=== PATIENT | male | born 1965 | race African-American/Black ===

== ENCOUNTER 2017-07-13 04:11 | Inpatient (IN) | payer MEDICARE, MEDICAID ==
[~2017-07-13] VITALS: Ht 188 cm; Wt 88.5 kg
[~2017-07-13 04:11] MED LIST: AMBIEN5 MG ORAL; ASPIRIN EC81 MG ORAL; ATENOLOL50 MG ORAL; ATIVAN1 MG ORAL; BENADRYL A12.5 MG/5 ORAL; BENADRYL50 MG/ML IV; BISACODYL5 MG RECTAL; CLONIDINE HCL0.1 MG PO; GUAIFENESIN-CO118 M1 ORAL; ISENTRESS400 MG ORAL; KEFLEX500 MG ORAL; LISINOPRIL20 MG PO; MELOXICAM7.5 MG ORAL; MIRALAX17 G2 ORAL; NEPHROVITE1 TAB ORAL; NIFEDICAL XL30 MG ORAL; NITROSTAT0.4 M2 SL; NORVIR100 M2 ORAL; OMEPRAZOLE40 M1 ORAL; ONDANSETRON HCL4 M1 ORAL; OXYCODONE HCL15 M1 ORAL; OXYCODONE HCL30 MG; OXYCONTIN20 MG ORAL; PANTOPRAZOLE SO40 MG ORAL; PREZISTA800 MG ORAL; RENAGEL400 MG ORAL; RENVELA800 MG ORAL; SENSIPAR60 MG ORAL; SIMVASTATIN20 MG ORAL; TYLENOL650 MG/20. ORAL; WARFARIN SODIUM5 MG ORAL; ZOVIRAX800 MG ORAL
[2017-07-13 06:08] VITALS: BP 102/55
[2017-07-13] MEDS ORDERED: ZOVIRAX800 MG ORAL (06:44)
[2017-07-13] MEDS ORDERED: PRAVASTATIN SOD20 M1 ORAL (06:44)
[2017-07-13] MEDS ORDERED: RENAGEL800 MG ORAL (06:44)
[2017-07-13] MEDS ORDERED: GABAPENTIN300 MG ORAL (06:44)
[2017-07-13 08:00] VITALS: BP 91/45
[2017-07-13] MEDS ORDERED: oxyCODONE 15mg IR tab ORAL PRN (08:30)
[2017-07-13] MEDS: HYDROmorphone 1mg/ml Carpuject IVP PRN ×3 (09:09→21:11)
[2017-07-13 09:22] LABS: MEAN CORPUSCULAR HEMOGLOBIN 28.7 PG (27.0-31.0); MEAN CORPUSCULAR HGB CONC 31.9 G/DL (32.0-36.0); MEAN CORPUSCULAR VOLUME 90 FL (80-99); MEAN PLATELET VOLUME 6.8 FL (6.5-10.1); PLATELET COUNT 96 K/UL (150-450); WHITE BLOOD COUNT 4.2 K/UL (4.8-10.8)
[2017-07-13 09:25] LABS: INR 1.1 (0.9-1.1); PROTHROMBIN TIME 11.3 SEC (9.30-11.50)
[2017-07-13 09:32] LABS: ALBUMIN/GLOBULIN RATIO 1.1 (1.0-2.7); CALCIUM 8.4 mg/dL (8.6-10.2); GLOMERULAR FILTRATION RATE 9.9 mL/min (>60); MAGNESIUM 1.9 mg/dL (1.7-2.5); PHOSPHORUS 5.3 mg/dL (2.5-4.8); POTASSIUM 4.1 mEQ/L (3.4-4.9); TOTAL PROTEIN 7.5 g/dL (6.6-8.7)
[2017-07-13 10:15] LABS: BAND NEUTROPHILS % (MANUAL) 0 % (0-8); BASOPHILS % (MANUAL) 0 % (0-2); EOSINOPHILS % (MANUAL) 1 % (0-3); LYMPHOCYTES % (MANUAL) 29 % (20-45); MACROCYTES 1+; NEUTROPHILS % (MANUAL) 56 % (45-75); PLATELET ESTIMATE DECREASED; PLATELET MORPHOLOGY NORMAL; TOTAL CELLS COUNTED 100
[2017-07-13 10:16] LABS: HYPOCHROMASIA 1+; OVALOCYTES 1+; SCHISTOCYTES 1+; TEAR DROP CELLS 1+
[2017-07-13] MEDS: Aspirin EC 81mg tab ORAL SCH (11:01)
[2017-07-13] MEDS: Sensipar 30mg Tab ORAL SCH (11:01)
--- NOTE | 2017-07-13 11:20 | Consultation ---
Consult Note Consult Note 52 Y old- The patient states he went to dialysis on 07/12/2017. The patient began to experience watery diarrhea after dialysis. The patient then went to bed. The patient fell trying to get out of bed to go to the bathroom. The patient struck his low back. The patient was initially evaluated at [facility]. The patient was transferred to [facility] for insurance purposes. The patient is admitted for low back pain to rule out lumbar fracture. Past Medical History: AFib, HIV, ESRD on HD, chronic pain syndrome, GERD, hypertension, pulmonary & portal hypertension, chronic pancreatitis Past Surgical History: : Cholecystectomy, back sx, rt shoulder sx, esophageal sx, Left thigh AVF, pulmonic decortication with left VATS draingae of the empyema, hx of repair of the pseudoaneurysm of HD fistula of the left arm, brachiocephalic vein AV graft repair, hx of basal venous transposition of the right arm Pertinent Family History: History of the kidney disease in his mother and with the kidney failure in a maternal aunt and maternal grandmother. Social History: Pt denies smoking, alcohol, or illicit drug use. Occasionally smoke marijuana. Allergies: Coded Allergies: LEVOFLOXACIN (Unverified Allergy, Unknown, 08/22/14) Uncoded Allergies: nasal spray (Allergy, Unknown, 07/03/15) Patient interviewed and examined data reviewed . Assessment/Plan status: -. Human immunodeficiency virus. -. End-stage renal disease. on HD . -. Hypertension. -. Asthma. -. Atrial fibrillation. -. Gastroesophageal reflux disease. Assessment/Plan 1. Low back pain. 2. Diarrhea. 3. Dehydration. 4. Human-immunodeficiency virus. 5. End-stage renal disease. 6. Hypertension. 7. Asthma. 8. Atrial fibrillation. 9. Gastroesophageal reflux disease. 10. Coronary artery disease. 11. History of pericardial effusion. 12. Peripheral vascular disease. Plan: Arrange for HD Per PMD RALEIGH VAZ Jul 13, 2017 11:20
[2017-07-13 12:00] VITALS: BP 98/61
[2017-07-13] MEDS: Ritonavir 100mg tab ORAL SCH (12:51)
[2017-07-13] MEDS: Acyclovir 200mg Cap ORAL SCH (12:52)
[2017-07-13] MEDS: Heparin 5000 units/ml inj SUBQ SCH ×2 (14:00→21:11)
[2017-07-13 16:00] VITALS: BP 126/73
[2017-07-13] MEDS: DiphenhydrAMINE 50mg/ml Inj IVP PRN (17:54)
--- NOTE | 2017-07-13 19:03 | Consultation ---
History of Present Illness General Date patient seen: Jul 13, 2017 Chief Complaint: abdomina;l pain Reason for Consultation: inpatient management Present Illness HPI 52-year-old male with PMHx of HIV, ESRF, HD, Asthma presented to ED of [facility] for evaluation of abdominal pain and fluid overload.. 10 out of 10. Nonradiating. He has chronic history of abdominal pain. Has fistula in right groin. Denies chest pain shortness of breath. He looks chronically ill and cachectic and admitted for further work up. Allergies: Coded Allergies: FLUTICASONE (Unverified Allergy, Unknown, 02/23/17) LEVOFLOXACIN (Unverified Allergy, Unknown, 08/22/14) MORPHINE (Unverified Allergy, Unknown, 02/23/17) Uncoded Allergies: nasal spray (Allergy, Unknown, 07/03/15) Medication History Scheduled Acyclovir* (Zovirax*), 400 MG ORAL DAILY, (Reported) Aspirin Ec* (Aspirin Ec*), 81 MG ORAL DAILY, (Reported) Atenolol* (Tenormin*), 50 MG ORAL DAILY, (Reported) Cinacalcet Hcl (Sensipar), 60 MG ORAL DAILY, (Reported) Darunavir Ethanolate (Prezista), 800 MG ORAL DAILY, (Reported) Gabapentin* (Gabapentin*), 300 MG ORAL BID, (Reported) Meloxicam* (Meloxicam*), 1 TAB ORAL HS, (Reported) Pravastatin Sod* (Pravastatin Sod*), 40 MG ORAL DAILY, (Reported) Raltegravir (Isentress), 1 TAB ORAL DAILY, (Reported) Ritonavir (Norvir), 1 TAB ORAL DAILY, (Reported) Sevelamer Carbonate (Renvela), 5 TAB ORAL THREE TIMES A DAY, (Reported) Sevelamer Hcl (Renagel), 800 MG ORAL THREE TIMES A DAY, (Reported) Simvastatin (Zocor), 20 MG ORAL BEDTIME, (Reported) Warfarin Sod* (Warfarin Sod*), 9 MG ORAL DAILY, (Reported) Scheduled PRN Acetaminophen (Acetaminophen), 650 MG ORAL Q4HR PRN for Prn Headache/Temp > 101, (Reported) Diphenhydramine HCl (Diphenhydramine HCl), 25 MG IV 3XW PRN for before each dialysis, (Reported) Ondansetron Hcl (Ondansetron Hcl), 1 TAB ORAL PRN PRN for Nausea & Vomiting, ( Reported) Oxycodone Hcl* (Oxycodone Hcl*), 30 MG ORAL Q6H PRN for For Pain, (Reported) Patient History Healthcare decision maker Resuscitation status Advanced Directive on File Past Medical/Surgical History Past Medical/Surgical History: (1) Hepatitis B (2) HIV (human immunodeficiency virus infection) (3) ESRD on hemodialysis (4) Abdominal pain (5) Asthma (6) Anemia in chronic kidney disease (7) Pancreatitis, chronic Review of Systems All Other Systems: negative except mentioned in HPI Physical Exam General Appearance: WD/WN Lines, tubes and drains: peripheral, central line HEENT: normocephalic Neck: non-tender, normal alignment Respiratory/Chest: chest wall non-tender, lungs clear Breasts: no masses Cardiovascular/Chest: normal peripheral pulses Abdomen: normal bowel sounds, non tender Last 24 Hour Vital Signs Date Time Temp Pulse Resp B/P (MAP) Pulse Ox O2 Delivery O2 Flow Rate FiO2 07/13/17 16:00 96.8 64 18 126/73 98 Room Air 07/13/17 12:00 96.8 61 19 98/61 90 Room Air 07/13/17 10:00 54 91/45 07/13/17 08:00 96.8 54 18 91/45 96 Room Air 07/13/17 06:08 97.7 77 18 102/55 100 Room Air Laboratory Tests Test 07/13/17 08:50 White Blood Count 4.2 K/UL (4.8-10.8) L Red Blood Count 3.70 M/UL (4.70-6.10) L Hemoglobin 10.6 G/DL (14.2-18.0) L Hematocrit 33.3 % (42.0-52.0) L Mean Corpuscular Volume 90 FL (80-99) Mean Corpuscular Hemoglobin 28.7 PG (27.0-31.0) Mean Corpuscular Hemoglobin Concent 31.9 G/DL (32.0-36.0) L Red Cell Distribution Width 18.0 % (11.6-14.8) H Platelet Count 96 K/UL (150-450) L Mean Platelet Volume 6.8 FL (6.5-10.1) Neutrophils (%) (Auto) % (45.0-75.0) Lymphocytes (%) (Auto) % (20.0-45.0) Monocytes (%) (Auto) % (1.0-10.0) Eosinophils (%) (Auto) % (0.0-3.0) Basophils (%) (Auto) % (0.0-2.0) Differential Total Cells Counted 100 Neutrophils % (Manual) 56 % (45-75) Lymphocytes % (Manual) 29 % (20-45) Monocytes % (Manual) 14 % (1-10) H Eosinophils % (Manual) 1 % (0-3) Basophils % (Manual) 0 % (0-2) Band Neutrophils 0 % (0-8) Platelet Estimate Decreased L Platelet Morphology Normal Hypochromasia 1+ Macrocytosis 1+ Tear Drop Cells 1+ Ovalocytes 1+ Schistocytes 1+ Prothrombin Time 11.3 SEC (9.30-11.50) Prothromb Time International Ratio 1.1 (0.9-1.1) Sodium Level 137 mEQ/L (135-145) Potassium Level 4.1 mEQ/L (3.4-4.9) Chloride Level 95 mEQ/L (98-107) L Carbon Dioxide Level 26 mEQ/L (20-30) Anion Gap 16 (5-15) H Blood Urea Nitrogen 43 mg/dL (7-23) H Creatinine 7.0 mg/dL (0.7-1.2) H Estimat Glomerular Filtration Rate 9.9 mL/min (>60) Glucose Level 95 mg/dL (74-106) Calcium Level 8.4 mg/dL (8.6-10.2) L Phosphorus Level 5.3 mg/dL (2.5-4.8) H Magnesium Level 1.9 mg/dL (1.7-2.5) Total Bilirubin 0.6 mg/dL (0.0-1.2) Aspartate Amino Transf (AST/SGOT) 25 U/L (5-40) Alanine Aminotransferase (ALT/SGPT) 21 U/L (3-41) Alkaline Phosphatase 133 U/L (40-129) H Total Protein 7.5 g/dL (6.6-8.7) Albumin 4.0 g/dL (3.5-5.2) Globulin 3.5 g/dL Albumin/Globulin Ratio 1.1 (1.0-2.7) Height (Feet): 6 Height (Inches): 3.00 Weight (Pounds): 174 Medications Current Medications Medications (Trade) Dose Ordered Sig/Anum Route PRN Reason Start Time Stop Time Status Last Admin Dose Admin Acetaminophen (Tylenol) 650 mg Q4H PRN ORAL Mild Pain/Temp > 100.5 07/13/17 10:00 08/12/17 09:59 Acyclovir (Zovirax) 400 mg DAILY ORAL 07/13/17 12:00 08/12/17 11:59 07/13/17 12:52 Aspirin (Ecotrin) 81 mg DAILY ORAL 07/13/17 10:00 08/12/17 09:59 07/13/17 11:01 Atenolol (Tenormin) 50 mg DAILY ORAL 07/13/17 10:00 08/12/17 09:59 Cinacalcet (Sensipar) 60 mg DAILY ORAL 07/13/17 10:00 08/12/17 09:59 07/13/17 11:01 Darunavir (Prezista) 800 mg QHS ORAL 07/13/17 21:00 08/12/17 20:59 Diphenhydramine HCl (Benadryl) 25 mg DAILYPRN PRN IVP GIVE PRIOR 30MIN PRIOR TO HD 07/13/17 09:00 08/12/17 08:59 Diphenhydramine HCl (Benadryl) 25 mg Q6H PRN IVP Itching 07/13/17 16:30 08/12/17 16:29 07/13/17 17:54 Gabapentin (Neurontin) 300 mg DAILY ORAL 07/13/17 10:00 08/12/17 09:59 07/13/17 11:01 Heparin Sodium (Porcine) (Heparin 5000 units/ml) 5,000 units EVERY 8 HOURS SUBQ 07/13/17 14:00 08/12/17 13:59 Hydromorphone HCl (Dilaudid) 1 mg Q4H PRN IVP Severe Pain (Pain Scale 7-10) 07/13/17 08:30 07/20/17 08:29 07/13/17 14:42 Ondansetron HCl (Zofran) 4 mg Q4H PRN IVP Nausea & Vomiting 07/13/17 09:30 08/12/17 09:29 07/13/17 17:53 Oxycodone HCl (Roxicodone) 30 mg Q6H PRN ORAL Moderate Pain (Pain Scale 4-6) 07/13/17 08:30 07/20/17 08:29 Pravastatin Sodium (Pravachol) 40 mg QHS ORAL 07/13/17 21:00 08/12/17 20:59 Raltegravir (Isentress) 400 mg Q12HR ORAL 07/13/17 21:00 08/12/17 20:59 Ritonavir (Norvir) 100 mg DAILY ORAL 07/13/17 12:00 08/12/17 11:59 07/13/17 12:51 Sevelamer Carbonate (Renvela) 2,400 mg THREE TIMES A DAY ORAL 07/13/17 10:00 08/12/17 09:59 07/13/17 17:53 Assessment/Plan Problem List: (1) Shortness of breath ICD Codes: R06.02 - Shortness of breath SNOMED: 654370812 (2) ESRD on hemodialysis ICD Codes: N18.6 - ESRD on hemodialysis; Z99.2 - Dependence on renal dialysis SNOMED: 710704769 (3) Anemia in chronic kidney disease ICD Codes: N18.9 - Chronic kidney disease, unspecified; D63.1 - Anemia in chronic kidney disease SNOMED: 945860640 (4) Asthma ICD Codes: J45.909 - Asthma SNOMED: 601343865 (5) Abdominal pain ICD Codes: R10.9 - Abdominal pain SNOMED: 00037701 (6) Pancreatitis, chronic ICD Codes: K86.1 - Pancreatitis, chronic SNOMED: 921214248 (7) Coronary artery disease ICD Codes: I25.10 - Coronary artery disease SNOMED: 194898957 (8) HIV (human immunodeficiency virus infection) ICD Codes: Z21 - HIV (human immunodeficiency virus infection) SNOMED: 48279152 (9) Hepatitis B ICD Codes: B16.9 - Hepatitis B SNOMED: 32829195 Assessment/Plan respiratory treatment HD by nephrology ID and GI evaluation pain management ARCADIO PETTIT Jul 13, 2017 19:03
[2017-07-13 20:00] VITALS: BP 97/57
[2017-07-13] MEDS ORDERED: Isentress 400mg tab ORAL SCH (21:00)
--- NOTE | 2017-07-13 22:52 | Consultation ---
Consult Note Consult Note ID Dic # [id number] SCOT COFFEY M.D. Jul 13, 2017 22:52
[2017-07-13 23:59] VITALS: BP 104/72
[2017-07-14] VITALS (8 sets, daily range): BP systolic 84–127; BP diastolic 50–63
[2017-07-14] MEDS: DiphenhydrAMINE 50mg/ml Inj IVP PRN ×4 (00:26→22:46)
[2017-07-14] MEDS: HYDROmorphone 1mg/ml Carpuject IVP PRN ×4 (04:15→21:30)
--- NOTE | 2017-07-14 04:30 | History and Physical Report ---
DATE OF ADMISSION: 07/13/2017 Chief Complaint: The patient is a 52-year-old male, who presents with chief complaint of low back pain. History Of Present Illness: The patient was admitted to [facility] in January 2017. Please see history and physical and discharge summary dictated at that time. The patient states he went to dialysis on 07/12/2017. The patient began to experience watery diarrhea after dialysis. The patient then went to bed. The patient fell trying to get out of bed to go to the bathroom. The patient struck his low back. The patient was initially evaluated at [facility] Emergency Room. The patient was transferred to [facility] for insurance purposes. The patient is admitted for low back pain to rule out lumbar fracture. PAST MEDICAL HISTORY: Significant for: 1. HIV, which was diagnosed in 1995. The patient states that his last T-cell count was greater than 300 and his last viral load was undetectable. 2. End-stage renal disease, on hemodialysis every Tuesday, , and Tuesday at [facility]. 3. Hypertension. 4. History of atrial fibrillation. 5. Asthma. 6. History of gastroesophageal reflux disease. 7. History of pericardial effusion. 8. Coronary artery disease. 9. Peripheral vascular disease. PAST SURGICAL HISTORY: Significant for: 1. Cholecystectomy in 2005. 2. Right neck mass excision in 2010. 3. VATS procedure for empyema in 2010. 4. AV graft placement in the right leg. CURRENT MEDICATIONS: 1. Neurontin 300 mg one tablet p.o. twice daily. 2. Oxycodone 20 mg one tablet p.o. four times daily. 3. Pravachol 40 mg one tablet p.o. daily. 4. Sensipar 60 mg one tablet p.o. daily. 5. Aspirin 81 mg one tablet p.o. daily. 6. Acyclovir 400 mg one tablet p.o. daily. 7. Bactrim double-strength one tablet p.o. every Tuesday, Tuesday, and Tuesday. 8. Prezista 400 mg one tablet p.o. daily. 9. Norvir 100 mg one tablet p.o. daily. 10. Isentress 400 mg one tablet p.o. twice daily. 11. Renagel 800 mg one tablet p.o. three times daily. 12. Prilosec 40 mg one tablet p.o. daily. 13. Atenolol 50 mg one tablet p.o. daily. Allergies: Levaquin and Flonase. The medical records states the patient is allergic to morphine, however, he denies this. Social History: The patient is single and is disabled. The patient denies tobacco or alcohol use. Review Of Systems: Constitutional: The patient denies weight loss or weight gain. The patient denies fevers or chills. HEENT: The patient denies ear or throat pain. The patient denies headache. Cardiovascular: The patient denies palpitations or chest pain. Chest: The patient denies wheeze or shortness of breath. Abdomen: The patient denies nausea, vomiting, diarrhea, or constipation. Genitourinary: The patient denies dysuria or increased frequency of urination. Neuromuscular: The patient complains of low back pain as above. The patient denies seizures or generalized weakness. PHYSICAL EXAMINATION: Vital Signs: Temperature 97.7, respirations 18, pulse 77, and blood pressure 102/55. General: The patient is a well-developed and well-nourished male, in no apparent distress. HEENT: Eyes, pupils are equal and responsive to light and accommodation. Extraocular movements are intact. NECK: Supple without lymphadenopathy. Chest: Lungs are clear to auscultation bilaterally without wheeze or rales. Cardiovascular: Regular rhythm and rate. S1 and S2 are normal without murmurs, rubs, or gallops. Abdomen: Soft, nontender, and nondistended. Positive bowel sounds. No hepatosplenomegaly. Currently, no rebound or guarding noted. EXTREMITIES: Negative for clubbing, cyanosis, or edema. RECTAL: Refused. GENITAL: Refused. Neurologic: Cranial nerves II through XII are grossly intact without focal deficits. Motor strength is 5/5 bilaterally. Deep tendon reflexes are 2+, plantar. Laboratory Studies: WBC 4.7, hemoglobin 10.7, hematocrit 33.1, and platelets 192,000. Sodium 135, potassium 4.0, chloride 97, CO2 25, BUN 38, creatinine 6.51, and glucose 99. Troponin is 0.04. Diagnostic data: CT of the lumbar spine from [place] revealed no CT evidence of fracture or dislocation. ASSESSMENT: This is a 52-year-old male with: 1. Low back pain. 2. Diarrhea. 3. Dehydration. 4. Human-immunodeficiency virus. 5. End-stage renal disease. 6. Hypertension. 7. Asthma. 8. Atrial fibrillation. 9. Gastroesophageal reflux disease. 10. Coronary artery disease. 11. History of pericardial effusion. 12. Peripheral vascular disease. TREATMENT: 1. Low back pain. The patient is currently complaining of radiculopathy to the left leg. An MRI of the back is pending. Neurology consultation has been obtained by Dr. King. 2. Human-immunodeficiency virus. Continue HAART medications as above. An infectious disease consultation has been obtained with Dr. Sidhu. 3. End-stage renal disease. The patient is currently on hemodialysis every Tuesday, , and Tuesday with Dr. Thomas. We will follow recommendation of Dr. Thomas. 4. Hypertension. Continue atenolol as above. 5. History of atrial fibrillation. 6. History of asthma. 7. History of gastroesophageal reflux disease. 8. History of pericardial effusion. 9. History of coronary artery disease. 10. History of peripheral vascular disease. Fabricio Guillory M.D. DR: Justina JOB#: [id number] CC:
[2017-07-14] MEDS: Heparin 5000 units/ml inj SUBQ SCH ×3 (05:41→21:23)
[2017-07-14 07:47] LABS: ALANINE AMINOTRANSFERASE 18 U/L (3-41); ALBUMIN/GLOBULIN RATIO 1.1 (1.0-2.7); ASPARTATE AMINO TRANSFERASE 23 U/L (5-40); CARBON DIOXIDE 24 mEQ/L (20-30); CHLORIDE 93 mEQ/L (98-107); CHOLESTEROL 173 mg/dL (< 200); CREATININE 8.7 mg/dL (0.7-1.2); CRP QUANT 0.9 mg/dL (< 0.5); GLOMERULAR FILTRATION RATE 7.8 mL/min (>60); HEMOLYSIS 12; LDL CHOLESTEROL (CALC.) 46 mg/dL (60-99); PHOSPHORUS 7.5 mg/dL (2.5-4.8); SODIUM 134 mEQ/L (135-145); TOTAL PROTEIN 7.6 g/dL (6.6-8.7); URIC ACID 6.2 mg/dL (3.0-7.5)
[2017-07-14 07:55] LABS: BASOPHILS % (AUTO) 0.5 % (0.0-2.0); EOSINOPHILS % (AUTO) 6.6 % (0.0-3.0); LYMPHOCYTES % (AUTO) 24.7 % (20.0-45.0); MEAN CORPUSCULAR HEMOGLOBIN 27.8 PG (27.0-31.0); MEAN CORPUSCULAR HGB CONC 31.5 G/DL (32.0-36.0); MEAN CORPUSCULAR VOLUME 88 FL (80-99); MEAN PLATELET VOLUME 7.6 FL (6.5-10.1); MONOCYTES % (AUTO) 13.1 % (1.0-10.0); PLATELET COUNT 107 K/UL (150-450); RED BLOOD COUNT 3.77 M/UL (4.70-6.10); RED CELL DISTRIBUTION WIDTH 18.4 % (11.6-14.8); WHITE BLOOD COUNT 4.4 K/UL (4.8-10.8)
[2017-07-14 08:07] LABS: ANION GAP 17 (5-15)
[2017-07-14 08:09] LABS: POTASSIUM 7.2 mEQ/L (3.4-4.9)
[2017-07-14 08:31] LABS: HEMOGLOBIN A1C 4.7 % (< 6.0)
--- NOTE | 2017-07-14 08:31 | Consultation ---
DATE OF CONSULTATION: INFECTIOUS DISEASES CONSULTATION CONSULTING PHYSICIAN: Albin Sidhu M.D. REFERRING PHYSICIAN: Fabricio Guillory M.D. REASON FOR CONSULTATION: Evaluation of the patient for HIV. History Of Present Illness: The patient is a 52-year-old male with multiple medical problems, who was admitted to this medical center due to low back pain. The patient has been diagnosed with HIV and the patient is on his HIV regimen. According to him, his viral load is undetectable, has CD4 count of over 300. The patient has regular followup with his HIV provider. An Infectious Diseases consultation has been requested for further evaluation of the patient and antibiotic management. PAST MEDICAL HISTORY: 1. Significant for HIV. 2. End-stage renal disease, on hemodialysis. 3. Hypertension. 4. Atrial fibrillation. 5. Asthma. 6. GERD. 7. History of cholecystectomy. 8. History of VATS for empyema in 2010. 9. History of AV graft in the right leg. Medications: At home, the patient is on Prezista 800 mg daily, Isentress 400 mg every 12 hours, and Norvir 100 mg daily. ALLERGIES: Morphine, Levaquin, and fluticasone. FAMILY HISTORY: Noncontributory. Review Of Systems: A 10-point review was done and except what is mentioned above has been negative. PHYSICAL EXAMINATION: Vital Signs: Temperature 97 degrees, pulse 86, respirations 18, and blood pressure 97/57. HEENT: Mild pale conjunctivae. No icterus. NECK: No lymphadenopathy. CHEST: Clear. HEART: S1 and S2. ABDOMEN: Soft and nontender. EXTREMITIES: No cyanosis. NEUROLOGIC: Awake and alert. Laboratory Data: White blood cells 4, hemoglobin 10, and platelets 96,000. BUN 43 and creatinine 7. ALT and AST unremarkable. Alkaline phosphatase 133. Assessment: The patient is a 52-year-old male with multiple medical problems as listed above was admitted to this medical center due to low back pain. The patient has history of . The patient also has human immunodeficiency virus well controlled on his regimen with CD4 count of over 300, undetected viral load. PLAN: 1. We will continue the patient on the HIV regimen. 2. Monitor CBC. 3. Monitor BMP. 4. Referral to Nephrology recommendation for dialysis. 5. Management of low back pain as per primary care team. 6. Upon discharge, the patient will have followup with his HIV provider. Thank you, Dr. Guillory, for allowing me to participate in the care of this patient. I will follow the patient with you during this hospitalization. Albin Sidhu M.D. DR: CHARITY JOB#: [id number] CC:
--- NOTE | 2017-07-14 09:28 | General Progress Note ---
Assessment/Plan Status: stable Status Narrative on HD now Assessment/Plan status: -. Human immunodeficiency virus. -. End-stage renal disease. 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 Hypertension. -. Asthma. -. Atrial fibrillation. -. Gastroesophageal reflux disease. Plan; HD as needed while in house Subjective ROS Limited/Unobtainable: No Allergies: Coded Allergies: FLUTICASONE (Unverified Allergy, Unknown, 02/23/17) LEVOFLOXACIN (Unverified Allergy, Unknown, 08/22/14) MORPHINE (Unverified Allergy, Unknown, 02/23/17) Uncoded Allergies: nasal spray (Allergy, Unknown, 07/03/15) Objective Last 24 Hour Vital Signs Date Time Temp Pulse Resp B/P (MAP) Pulse Ox O2 Delivery O2 Flow Rate FiO2 07/14/17 08:02 97.2 60 20 101/51 98 07/14/17 05:56 127/58 07/14/17 05:30 Room Air 07/14/17 05:30 97.2 61 22 127/63 100 Room Air 07/14/17 04:45 97.0 07/14/17 04:14 97.7 67 20 84/51 93 Room Air 07/13/17 23:59 97.0 64 20 104/72 98 Room Air 07/13/17 20:00 97.0 62 18 97/57 98 Room Air 07/13/17 16:00 96.8 64 18 126/73 98 Room Air 07/13/17 12:00 96.8 61 19 98/61 90 Room Air 07/13/17 10:00 54 91/45 Laboratory Tests 07/14/17 05:30: White Blood Count 4.4L, Red Blood Count 3.77L, Hemoglobin 10.5L, Hematocrit 33.4L, Mean Corpuscular Volume 88, Mean Corpuscular Hemoglobin 27.8, Mean Corpuscular Hemoglobin Concent 31.5L, Red Cell Distribution Width 18.4H, Platelet Count 107L, Mean Platelet Volume 7.6, Neutrophils (%) (Auto) 55.0, Lymphocytes (%) (Auto) 24.7, Monocytes (%) (Auto) 13.1H, Eosinophils (%) (Auto) 6.6H, Basophils (%) (Auto) 0.5, Sodium Level 134L, Potassium Level 7.2#*H, Chloride Level 93L, Carbon Dioxide Level 24, Anion Gap 17H, Blood Urea Nitrogen 62H, Creatinine 8.7H, Estimat Glomerular Filtration Rate 7.8, Glucose Level 91, Hemoglobin A1c 4.7, Uric Acid 6.2, Calcium Level 8.0L, Phosphorus Level 7.5H, Magnesium Level 2.0, Total Bilirubin 0.5, Gamma Glutamyl Transpeptidase 52, Aspartate Amino Transf (AST/SGOT) 23, Alanine Aminotransferase (ALT/SGPT) 18, Alkaline Phosphatase 137H, C-Reactive Protein, Quantitative 0.9H, Pro-B-Type Natriuretic Peptide 57546O, Total Protein 7.6, Albumin 4.1, Globulin 3.5, Albumin/Globulin Ratio 1.1, Triglycerides Level 78, Cholesterol Level 173, LDL Cholesterol 46L, HDL Cholesterol > 111H, Cholesterol/HDL Ratio 1.0L, Thyroid Stimulating Hormone (TSH) 3.920 Height (Feet): 6 Height (Inches): 3.00 Weight (Pounds): 198 Cardiovascular: regular rhythm Respiratory/Chest: lungs clear Abdomen: soft RALEIGH VAZ Jul 14, 2017 09:27
[2017-07-14] MEDS: Acyclovir 200mg Cap ORAL SCH (09:58)
[2017-07-14] MEDS: Isentress 400mg tab ORAL SCH ×2 (09:58→21:29)
[2017-07-14] MEDS: Sensipar 30mg Tab ORAL SCH (09:59)
[2017-07-14] MEDS: Aspirin EC 81mg tab ORAL SCH (09:59)
[2017-07-14] MEDS: Ritonavir 100mg tab ORAL SCH (10:00)
[2017-07-14] MEDS: Docusate 100mg cap ORAL SCH ×3 (10:03→18:07)
--- NOTE | 2017-07-14 10:45 | GI Initial Consult Note ---
TenishaHarper Boschoi N.P. 07/14/17 1045: History of Present Illness General Date patient seen: Jul 14, 2017 Time patient seen: 10:33 Referring physician: PAYTON CARNEY Reason for Consultation: ANEMIA Present Illness HPI The patient was admitted to [facility] in January 2017. Please see history and physical and discharge summary dictated at that time. The patient states he went to dialysis on 07/12/2017. The patient began to experience watery diarrhea after dialysis. The patient then went to bed. The patient fell trying to get out of bed to go to the bathroom. The patient struck his low back. The patient was initially evaluated at [facility] Emergency Room. The patient was transferred to [facility] for insurance purposes. The patient is admitted for low back pain to rule out lumbar fracture. GI Consult. HPI as noted. GI consulted for abdominal pain accompanied with diarrhea. Pt seen on floor, awake A&Ox4 NAD c/o of watery diarrhea and abdominal pain. Denies any melena or hematochezia. Generalized abdominal pain tender to touch. Pt s/p colonoscopy in 2014, and s/p EGD in 2013, see full report below. He presents today with anemia and hypoalbuminemia. Endoscopy Procedure Note Indication for Procedure: abd pain Procedures Performed: colonoscopy Operative Findings/Diagnosis: hemorrhoids CONNOR WHITLEY - Nov 15, 2014 12:37 Endoscopy Procedure Note Indication for Procedure: abd pain Procedures Performed: EGD Operative Findings/Diagnosis: portal hypertensive gastropathy CONNOR WHITLEY - Aug 26, 2014 08:18 Home Meds Reported Medications Sevelamer Hcl (RENAGEL) 800 Mg Tablet, 800 MG ORAL THREE TIMES A DAY, #90 TAB 0 Refills 07/13/17 Acyclovir* (ZOVIRAX*) 800 Mg Tablet, 400 MG ORAL DAILY, #30 CAP 0 Refills 07/13/17 Pravastatin Sod* (PRAVASTATIN SOD*) 20 Mg Tablet, 40 MG ORAL DAILY, TAB 07/13/17 Gabapentin* (GABAPENTIN*) 300 Mg Capsule, 300 MG ORAL BID, CAP 0 Refills 07/13/17 Aspirin Ec* (ASPIRIN EC*) 81 Mg Tablet.dr, 81 MG ORAL DAILY, TAB 02/23/17 Simvastatin (ZOCOR) 20 Mg Tablet, 20 MG ORAL BEDTIME, TAB 02/23/17 Oxycodone Hcl* (OXYCODONE HCL*) 15 Mg Tablet, 30 MG ORAL Q6H Y for For Pain, TAB 07/03/15 Diphenhydramine HCl (Diphenhydramine HCl) 50 Mg/Ml Soln, 25 MG IV 3XW Y for before each dialysis 07/03/15 Acetaminophen (Acetaminophen) 650 Mg/20.3 Ml Soln, 650 MG ORAL Q4HR Y for Prn Headache/Temp > 101, ML 0 Refills 09/07/14 Atenolol* (TENORMIN*) 50 Mg Tablet, 50 MG ORAL DAILY, TAB 09/07/14 Warfarin Sod* (WARFARIN SOD*) 5 Mg Tablet, 9 MG ORAL DAILY, #30 08/22/14 Sevelamer Carbonate (Renvela) 800 Mg Tab, 5 TAB ORAL THREE TIMES A DAY, #360 with meals 08/22/14 Ritonavir (NORVIR) 100 Mg Tablet, 1 TAB ORAL DAILY, #30 08/22/14 Cinacalcet Hcl (SENSIPAR) 60 Mg Tablet, 60 MG ORAL DAILY, #60 08/22/14 Darunavir Ethanolate (PREZISTA) 800 Mg Tablet, 800 MG ORAL DAILY, #30 08/22/14 Raltegravir (Isentress) 400 Mg Tab, 1 TAB ORAL DAILY, #60 08/22/14 Meloxicam* (MELOXICAM*) 7.5 Mg Tablet, 1 TAB ORAL HS, #60 08/22/14 Ondansetron Hcl (ONDANSETRON HCL) 4 Mg Tablet, 1 TAB ORAL PRN Y for Nausea & Vomiting, #30 08/22/14 Med list reviewed/reconciled: Yes Allergies: Coded Allergies: FLUTICASONE (Unverified Allergy, Unknown, 02/23/17) LEVOFLOXACIN (Unverified Allergy, Unknown, 08/22/14) MORPHINE (Unverified Allergy, Unknown, 02/23/17) Uncoded Allergies: nasal spray (Allergy, Unknown, 07/03/15) Patient History PMH Narrative 1. HIV, which was diagnosed in 1995. The patient states that his last T-cell count was greater than 300 and his last viral load was undetectable. 2. End-stage renal disease, on hemodialysis every Tuesday, , and Tuesday at [facility]. 3. Hypertension. 4. History of atrial fibrillation. 5. Asthma. 6. History of gastroesophageal reflux disease. 7. History of pericardial effusion. 8. Coronary artery disease. 9. Peripheral vascular disease. PAST SURGICAL HISTORY: Significant for: 1. Cholecystectomy in 2005. 2. Right neck mass excision in 2010. 3. VATS procedure for empyema in 2010. 4. AV graft placement in the right leg. Social History: Denies: smoking, alcohol use, drug use, other Review of Systems All Other Systems: negative except mentioned in HPI Physical Exam Vital Signs Date Time Temp Pulse Resp B/P (MAP) Pulse Ox O2 Delivery O2 Flow Rate FiO2 07/13/17 06:08 97.7 77 18 102/55 100 Room Air Sp02 EP Interpretation: reviewed Labs Laboratory Tests Test 07/14/17 05:30 White Blood Count 4.4 K/UL (4.8-10.8) L Red Blood Count 3.77 M/UL (4.70-6.10) L Hemoglobin 10.5 G/DL (14.2-18.0) L Hematocrit 33.4 % (42.0-52.0) L Mean Corpuscular Volume 88 FL (80-99) Mean Corpuscular Hemoglobin 27.8 PG (27.0-31.0) Mean Corpuscular Hemoglobin Concent 31.5 G/DL (32.0-36.0) L Red Cell Distribution Width 18.4 % (11.6-14.8) H Platelet Count 107 K/UL (150-450) L Mean Platelet Volume 7.6 FL (6.5-10.1) Neutrophils (%) (Auto) 55.0 % (45.0-75.0) Lymphocytes (%) (Auto) 24.7 % (20.0-45.0) Monocytes (%) (Auto) 13.1 % (1.0-10.0) H Eosinophils (%) (Auto) 6.6 % (0.0-3.0) H Basophils (%) (Auto) 0.5 % (0.0-2.0) Sodium Level 134 mEQ/L (135-145) L Potassium Level 7.2 mEQ/L (3.4-4.9) #*H Chloride Level 93 mEQ/L (98-107) L Carbon Dioxide Level 24 mEQ/L (20-30) Anion Gap 17 (5-15) H Blood Urea Nitrogen 62 mg/dL (7-23) H Creatinine 8.7 mg/dL (0.7-1.2) H Estimat Glomerular Filtration Rate 7.8 mL/min (>60) Glucose Level 91 mg/dL (74-106) Hemoglobin A1c 4.7 % (< 6.0) Uric Acid 6.2 mg/dL (3.0-7.5) Calcium Level 8.0 mg/dL (8.6-10.2) L Phosphorus Level 7.5 mg/dL (2.5-4.8) H Magnesium Level 2.0 mg/dL (1.7-2.5) Total Bilirubin 0.5 mg/dL (0.0-1.2) Gamma Glutamyl Transpeptidase 52 U/L (8-61) Aspartate Amino Transf (AST/SGOT) 23 U/L (5-40) Alanine Aminotransferase (ALT/SGPT) 18 U/L (3-41) Alkaline Phosphatase 137 U/L (40-129) H C-Reactive Protein, Quantitative 0.9 mg/dL (< 0.5) H Pro-B-Type Natriuretic Peptide 48890 pg/mL (0-125) H Total Protein 7.6 g/dL (6.6-8.7) Albumin 4.1 g/dL (3.5-5.2) Globulin 3.5 g/dL Albumin/Globulin Ratio 1.1 (1.0-2.7) Triglycerides Level 78 mg/dL (< 150) Cholesterol Level 173 mg/dL (< 200) LDL Cholesterol 46 mg/dL (60-99) L HDL Cholesterol > 111 mg/dL (> 60) H Cholesterol/HDL Ratio 1.0 (3.3-4.4) L Thyroid Stimulating Hormone (TSH) 3.920 uIU/mL (0.300-4.500) General Appearance: well appearing, no apparent distress, alert Head: normocephalic EENT: PERRL/EOMI, normal ENT inspection Neck: full range of motion, supple Respiratory: lungs clear, normal breath sounds, no respiratory distress Cardiovascular: normal rate Gastrointestinal: normal inspection, non tender, soft Genitourinary: no CVA tenderness Musculoskeletal: back normal Neurologic: normal inspection, alert, oriented x3, responsive Psychiatric: normal inspection, judgement/insight normal, memory normal Skin: normal inspection, normal color, no rash, warm/dry Lymphatic: normal inspection, no adenopathy Current Medications Current Medications Medications (Trade) Dose Ordered Sig/Anum Route PRN Reason Start Time Stop Time Status Last Admin Dose Admin Acetaminophen (Tylenol) 650 mg Q4H PRN ORAL Mild Pain/Temp > 100.5 07/13/17 10:00 08/12/17 09:59 Acyclovir (Zovirax) 400 mg DAILY ORAL 07/13/17 12:00 08/12/17 11:59 07/14/17 09:58 Aspirin (Ecotrin) 81 mg DAILY ORAL 07/13/17 10:00 08/12/17 09:59 07/14/17 09:59 Atenolol (Tenormin) 50 mg DAILY ORAL 07/13/17 10:00 08/12/17 09:59 07/14/17 09:58 Cinacalcet (Sensipar) 60 mg DAILY ORAL 07/13/17 10:00 08/12/17 09:59 07/14/17 09:59 Darunavir (Prezista) 800 mg DAILY ORAL 07/14/17 09:00 08/13/17 08:59 07/14/17 10:03 Diphenhydramine HCl (Benadryl) 25 mg DAILYPRN PRN IVP GIVE PRIOR 30MIN PRIOR TO HD 07/13/17 09:00 08/12/17 08:59 07/14/17 05:50 Diphenhydramine HCl (Benadryl) 25 mg Q6H PRN IVP Itching 07/13/17 16:30 08/12/17 16:29 07/14/17 00:26 Docusate Sodium (Colace) 100 mg THREE TIMES A DAY ORAL 07/14/17 09:00 08/13/17 08:59 07/14/17 10:03 Gabapentin (Neurontin) 300 mg DAILY ORAL 07/13/17 10:00 08/12/17 09:59 07/14/17 09:59 Heparin Sodium (Porcine) (Heparin 5000 units/ml) 5,000 units EVERY 8 HOURS SUBQ 07/13/17 14:00 08/12/17 13:59 Hydromorphone HCl (Dilaudid) 1 mg Q4H PRN IVP Severe Pain (Pain Scale 7-10) 07/13/17 08:30 07/20/17 08:29 07/14/17 08:44 Ondansetron HCl (Zofran) 4 mg Q4H PRN IVP Nausea & Vomiting 07/13/17 09:30 08/12/17 09:29 07/13/17 17:53 Oxycodone HCl (Roxicodone) 30 mg Q6H PRN ORAL Moderate Pain (Pain Scale 4-6) 07/13/17 08:30 07/20/17 08:29 Pravastatin Sodium (Pravachol) 40 mg QHS ORAL 07/13/17 21:00 08/12/17 20:59 07/13/17 21:11 Raltegravir (Isentress) 400 mg Q12HR ORAL 07/14/17 09:00 08/13/17 08:59 07/14/17 09:58 Ritonavir (Norvir) 100 mg DAILY ORAL 07/13/17 12:00 08/12/17 11:59 07/14/17 10:00 Sevelamer Carbonate (Renvela) 2,400 mg THREE TIMES A DAY ORAL 07/13/17 10:00 08/12/17 09:59 07/14/17 09:59 GI: Plan Problems: (1) ESRD on hemodialysis (2) Abdominal pain (3) Gastroesophageal reflux (4) Anemia in chronic kidney disease (5) Portal hypertensive gastropathy (6) Diarrhea Plan s/p colonoscopy 2014 >> hemorrhoids s/p EGD 2013 >> portal hypertensive gastropathy MRCP 02/24/17 reviewed >> Mild biliary ductal prominence, otherwise unremarkable. anemia 2/2 chronic renal disease possible EGD scheduled for tomorrow. - renal diet, NPO @ [facility]. monitor H&H, transfuse prn ppi collect cdiff, stool studies >> ok for Imodium prn after zofran prn fu labs Discussed with Dr. Whitley. Thank you for referring this patient, we will follow. CONNOR WHITLEY 07/20/17 0938: History of Present Illness Present Illness Home Meds Reported Medications Sevelamer Hcl (RENAGEL) 800 Mg Tablet, 800 MG ORAL THREE TIMES A DAY, #90 TAB 0 Refills 07/13/17 Acyclovir* (ZOVIRAX*) 800 Mg Tablet, 400 MG ORAL DAILY, #30 CAP 0 Refills 07/13/17 Pravastatin Sod* (PRAVASTATIN SOD*) 20 Mg Tablet, 40 MG ORAL DAILY, TAB 07/13/17 Gabapentin* (GABAPENTIN*) 300 Mg Capsule, 300 MG ORAL BID, CAP 0 Refills 07/13/17 Aspirin Ec* (ASPIRIN EC*) 81 Mg Tablet.dr, 81 MG ORAL DAILY, TAB 02/23/17 Simvastatin (ZOCOR) 20 Mg Tablet, 20 MG ORAL BEDTIME, TAB 02/23/17 Oxycodone Hcl* (OXYCODONE HCL*) 15 Mg Tablet, 30 MG ORAL Q6H Y for For Pain, TAB 07/03/15 Diphenhydramine HCl (Diphenhydramine HCl) 50 Mg/Ml Soln, 25 MG IV 3XW Y for before each dialysis 07/03/15 Acetaminophen (Acetaminophen) 650 Mg/20.3 Ml Soln, 650 MG ORAL Q4HR Y for Prn Headache/Temp > 101, ML 0 Refills 09/07/14 Atenolol* (TENORMIN*) 50 Mg Tablet, 50 MG ORAL DAILY, TAB 09/07/14 Warfarin Sod* (WARFARIN SOD*) 5 Mg Tablet, 9 MG ORAL DAILY, #30 08/22/14 Sevelamer Carbonate (Renvela) 800 Mg Tab, 5 TAB ORAL THREE TIMES A DAY, #360 with meals 08/22/14 Ritonavir (NORVIR) 100 Mg Tablet, 1 TAB ORAL DAILY, #30 08/22/14 Cinacalcet Hcl (SENSIPAR) 60 Mg Tablet, 60 MG ORAL DAILY, #60 08/22/14 Darunavir Ethanolate (PREZISTA) 800 Mg Tablet, 800 MG ORAL DAILY, #30 08/22/14 Raltegravir (Isentress) 400 Mg Tab, 1 TAB ORAL DAILY, #60 08/22/14 Meloxicam* (MELOXICAM*) 7.5 Mg Tablet, 1 TAB ORAL HS, #60 08/22/14 Ondansetron Hcl (ONDANSETRON HCL) 4 Mg Tablet, 1 TAB ORAL PRN Y for Nausea & Vomiting, #30 08/22/14 Allergies: Coded Allergies: FLUTICASONE (Unverified Allergy, Unknown, 02/23/17) LEVOFLOXACIN (Unverified Allergy, Unknown, 08/22/14) MORPHINE (Unverified Allergy, Unknown, 02/23/17) Uncoded Allergies: nasal spray (Allergy, Unknown, 07/03/15) GI: Plan Plan The patient was seen and examined at bedside and all new and available data was reviewed in the patients chart. I agree with the above findings, impression and plan. (Patient seen earlier today. Signature stamp does not reflect patient encounter time.). -Claire Parra MDh Hammad Delacruz Jul 14, 2017 10:45 CONNOR WHITLEY Jul 20, 2017 09:38
--- NOTE | 2017-07-14 19:05 | Pulmonology Progress Note ---
Assessment/Plan Problems: (1) ESRD on hemodialysis (2) Anemia in chronic kidney disease (3) Asthma (4) Abdominal pain (5) Pancreatitis, chronic (6) Coronary artery disease (7) HIV (human immunodeficiency virus infection) (8) Hepatitis B Assessment/Plan symptomatic treatmnet hd by nephrology check electrolytes contine HIV meds Subjective ROS Limited/Unobtainable: No Constitutional: Reports: no symptoms HEENT: Repors: no symptoms Respiratory: Reports: no symptoms Allergies: Coded Allergies: FLUTICASONE (Unverified Allergy, Unknown, 02/23/17) LEVOFLOXACIN (Unverified Allergy, Unknown, 08/22/14) MORPHINE (Unverified Allergy, Unknown, 02/23/17) Uncoded Allergies: nasal spray (Allergy, Unknown, 07/03/15) Objective Last 24 Hour Vital Signs Date Time Temp Pulse Resp B/P (MAP) Pulse Ox O2 Delivery O2 Flow Rate FiO2 07/14/17 16:51 97.7 07/14/17 16:00 97.5 61 20 107/63 98 Room Air 07/14/17 12:00 97.7 61 20 103/55 98 Room Air 07/14/17 09:58 56 122/55 07/14/17 09:27 Room Air 07/14/17 09:26 97.0 56 21 122/55 98 Room Air 07/14/17 08:02 97.2 60 20 101/51 98 07/14/17 05:56 127/58 07/14/17 05:30 Room Air 07/14/17 05:30 97.2 61 22 127/63 100 Room Air 07/14/17 04:14 97.7 67 20 84/51 93 Room Air 07/13/17 23:59 97.0 64 20 104/72 98 Room Air 07/13/17 20:00 97.0 62 18 97/57 98 Room Air Intake and Output 07/14/17 07/15/17 19:00 07:00 Intake Total 480 ml Output Total 2000 ml Balance -1520 ml Intake Oral 480 ml Output Hemodialysis UF 2000 ml General Appearance: WD/WN HEENT: normocephalic, atraumatic Respiratory/Chest: chest wall non-tender, lungs clear Cardiovascular: normal peripheral pulses, regular rhythm Abdomen: normal bowel sounds, soft, non tender Extremities: no cyanosis, no clubbing Skin: no lesions 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, no motor/sensory deficits Laboratory Tests 07/14/17 05:30: White Blood Count 4.4L, Red Blood Count 3.77L, Hemoglobin 10.5L, Hematocrit 33.4L, Mean Corpuscular Volume 88, Mean Corpuscular Hemoglobin 27.8, Mean Corpuscular Hemoglobin Concent 31.5L, Red Cell Distribution Width 18.4H, Platelet Count 107L, Mean Platelet Volume 7.6, Neutrophils (%) (Auto) 55.0, Lymphocytes (%) (Auto) 24.7, Monocytes (%) (Auto) 13.1H, Eosinophils (%) (Auto) 6.6H, Basophils (%) (Auto) 0.5, Sodium Level 134L, Potassium Level 7.2#*H, Chloride Level 93L, Carbon Dioxide Level 24, Anion Gap 17H, Blood Urea Nitrogen 62H, Creatinine 8.7H, Estimat Glomerular Filtration Rate 7.8, Glucose Level 91, Hemoglobin A1c 4.7, Uric Acid 6.2, Calcium Level 8.0L, Phosphorus Level 7.5H, Magnesium Level 2.0, Total Bilirubin 0.5, Gamma Glutamyl Transpeptidase 52, Aspartate Amino Transf (AST/SGOT) 23, Alanine Aminotransferase (ALT/SGPT) 18, Alkaline Phosphatase 137H, C-Reactive Protein, Quantitative 0.9H, Pro-B-Type Natriuretic Peptide 45587A, Total Protein 7.6, Albumin 4.1, Globulin 3.5, Albumin/Globulin Ratio 1.1, Triglycerides Level 78, Cholesterol Level 173, LDL Cholesterol 46L, HDL Cholesterol > 111H, Cholesterol/HDL Ratio 1.0L, Thyroid Stimulating Hormone (TSH) 3.920 Current Medications Medications (Trade) Dose Ordered Sig/Anum Route PRN Reason Start Time Stop Time Status Last Admin Dose Admin Acetaminophen (Tylenol) 650 mg Q4H PRN ORAL Mild Pain/Temp > 100.5 07/13/17 10:00 08/12/17 09:59 Acyclovir (Zovirax) 400 mg DAILY ORAL 07/13/17 12:00 08/12/17 11:59 07/14/17 09:58 Aspirin (Ecotrin) 81 mg DAILY ORAL 07/13/17 10:00 08/12/17 09:59 07/14/17 09:59 Atenolol (Tenormin) 50 mg DAILY ORAL 07/13/17 10:00 08/12/17 09:59 07/14/17 09:58 Cinacalcet (Sensipar) 60 mg DAILY ORAL 07/13/17 10:00 08/12/17 09:59 07/14/17 09:59 Darunavir (Prezista) 800 mg DAILY ORAL 07/14/17 09:00 08/13/17 08:59 07/14/17 10:03 Diphenhydramine HCl (Benadryl) 25 mg DAILYPRN PRN IVP GIVE PRIOR 30MIN PRIOR TO HD 07/13/17 09:00 08/12/17 08:59 07/14/17 05:50 Diphenhydramine HCl (Benadryl) 25 mg Q6H PRN IVP Itching 07/13/17 16:30 08/12/17 16:29 07/14/17 13:37 Docusate Sodium (Colace) 100 mg THREE TIMES A DAY ORAL 07/14/17 09:00 08/13/17 08:59 07/14/17 18:07 Esomeprazole Sodium (Nexium I.v.) 40 mg DAILY IVP 07/15/17 09:00 08/14/17 08:59 Gabapentin (Neurontin) 300 mg DAILY ORAL 07/13/17 10:00 08/12/17 09:59 07/14/17 09:59 Heparin Sodium (Porcine) (Heparin 5000 units/ml) 5,000 units EVERY 8 HOURS SUBQ 07/13/17 14:00 08/12/17 13:59 Hydromorphone HCl (Dilaudid) 1 mg Q4H PRN IVP Severe Pain (Pain Scale 7-10) 07/13/17 08:30 07/20/17 08:29 07/14/17 16:21 Ondansetron HCl (Zofran) 4 mg Q4H PRN IVP Nausea & Vomiting 07/13/17 09:30 08/12/17 09:29 07/13/17 17:53 Oxycodone HCl (Roxicodone) 30 mg Q6H PRN ORAL Moderate Pain (Pain Scale 4-6) 07/13/17 08:30 07/20/17 08:29 Pravastatin Sodium (Pravachol) 40 mg QHS ORAL 07/13/17 21:00 08/12/17 20:59 07/13/17 21:11 Raltegravir (Isentress) 400 mg Q12HR ORAL 07/14/17 09:00 08/13/17 08:59 07/14/17 09:58 Ritonavir (Norvir) 100 mg DAILY ORAL 07/13/17 12:00 08/12/17 11:59 07/14/17 10:00 Sevelamer Carbonate (Renvela) 2,400 mg THREE TIMES A DAY ORAL 07/13/17 10:00 08/12/17 09:59 07/14/17 18:07 ARCADIO PETTIT Jul 14, 2017 19:05
--- NOTE | 2017-07-14 19:10 | Internal Med Progress Note ---
Subjective Date of Service: Jul 14, 2017 Physician Name Krystian Richter Attending Physician Nabeel Hfof MD Current Medications Medications (Trade) Dose Ordered Sig/Anum Route PRN Reason Start Time Stop Time Status Last Admin Dose Admin Acetaminophen (Tylenol) 650 mg Q4H PRN ORAL Mild Pain/Temp > 100.5 07/13/17 10:00 08/12/17 09:59 Acyclovir (Zovirax) 400 mg DAILY ORAL 07/13/17 12:00 08/12/17 11:59 07/14/17 09:58 Aspirin (Ecotrin) 81 mg DAILY ORAL 07/13/17 10:00 08/12/17 09:59 07/14/17 09:59 Atenolol (Tenormin) 50 mg DAILY ORAL 07/13/17 10:00 08/12/17 09:59 07/14/17 09:58 Cinacalcet (Sensipar) 60 mg DAILY ORAL 07/13/17 10:00 08/12/17 09:59 07/14/17 09:59 Darunavir (Prezista) 800 mg DAILY ORAL 07/14/17 09:00 08/13/17 08:59 07/14/17 10:03 Diphenhydramine HCl (Benadryl) 25 mg DAILYPRN PRN IVP GIVE PRIOR 30MIN PRIOR TO HD 07/13/17 09:00 08/12/17 08:59 07/14/17 05:50 Diphenhydramine HCl (Benadryl) 25 mg Q6H PRN IVP Itching 07/13/17 16:30 08/12/17 16:29 07/14/17 13:37 Docusate Sodium (Colace) 100 mg THREE TIMES A DAY ORAL 07/14/17 09:00 08/13/17 08:59 07/14/17 18:07 Esomeprazole Sodium (Nexium I.v.) 40 mg DAILY IVP 07/15/17 09:00 08/14/17 08:59 Gabapentin (Neurontin) 300 mg DAILY ORAL 07/13/17 10:00 08/12/17 09:59 07/14/17 09:59 Heparin Sodium (Porcine) (Heparin 5000 units/ml) 5,000 units EVERY 8 HOURS SUBQ 07/13/17 14:00 08/12/17 13:59 Hydromorphone HCl (Dilaudid) 1 mg Q4H PRN IVP Severe Pain (Pain Scale 7-10) 07/13/17 08:30 07/20/17 08:29 07/14/17 16:21 Ondansetron HCl (Zofran) 4 mg Q4H PRN IVP Nausea & Vomiting 07/13/17 09:30 08/12/17 09:29 07/13/17 17:53 Oxycodone HCl (Roxicodone) 30 mg Q6H PRN ORAL Moderate Pain (Pain Scale 4-6) 07/13/17 08:30 07/20/17 08:29 Pravastatin Sodium (Pravachol) 40 mg QHS ORAL 07/13/17 21:00 08/12/17 20:59 07/13/17 21:11 Raltegravir (Isentress) 400 mg Q12HR ORAL 07/14/17 09:00 08/13/17 08:59 07/14/17 09:58 Ritonavir (Norvir) 100 mg DAILY ORAL 07/13/17 12:00 08/12/17 11:59 07/14/17 10:00 Sevelamer Carbonate (Renvela) 2,400 mg THREE TIMES A DAY ORAL 07/13/17 10:00 08/12/17 09:59 07/14/17 18:07 Allergies: Coded Allergies: FLUTICASONE (Unverified Allergy, Unknown, 02/23/17) LEVOFLOXACIN (Unverified Allergy, Unknown, 08/22/14) MORPHINE (Unverified Allergy, Unknown, 02/23/17) Uncoded Allergies: nasal spray (Allergy, Unknown, 07/03/15) ROS Limited/Unobtainable: No Constitutional: Reports: no symptoms HEENT: Reports: no symptoms Cardiovascular: Reports: no symptoms Respiratory: Reports: no symptoms Gastrointestinal/Abdominal: Reports: no symptoms Neurologic/Psychiatric: Reports: other - back pain Subjective 52 YO M admitted with low back pain and ESRD. Cover for Int med-Dr Hoff. Await MRI lumbar spine. Objective Last Vital Signs Date Time Temp Pulse Resp B/P (MAP) Pulse Ox O2 Delivery O2 Flow Rate FiO2 07/14/17 16:51 97.7 07/14/17 16:00 61 20 107/63 98 Room Air Laboratory Tests Test 07/14/17 05:30 White Blood Count 4.4 K/UL (4.8-10.8) L Red Blood Count 3.77 M/UL (4.70-6.10) L Hemoglobin 10.5 G/DL (14.2-18.0) L Hematocrit 33.4 % (42.0-52.0) L Mean Corpuscular Volume 88 FL (80-99) Mean Corpuscular Hemoglobin 27.8 PG (27.0-31.0) Mean Corpuscular Hemoglobin Concent 31.5 G/DL (32.0-36.0) L Red Cell Distribution Width 18.4 % (11.6-14.8) H Platelet Count 107 K/UL (150-450) L Mean Platelet Volume 7.6 FL (6.5-10.1) Neutrophils (%) (Auto) 55.0 % (45.0-75.0) Lymphocytes (%) (Auto) 24.7 % (20.0-45.0) Monocytes (%) (Auto) 13.1 % (1.0-10.0) H Eosinophils (%) (Auto) 6.6 % (0.0-3.0) H Basophils (%) (Auto) 0.5 % (0.0-2.0) Sodium Level 134 mEQ/L (135-145) L Potassium Level 7.2 mEQ/L (3.4-4.9) #*H Chloride Level 93 mEQ/L (98-107) L Carbon Dioxide Level 24 mEQ/L (20-30) Anion Gap 17 (5-15) H Blood Urea Nitrogen 62 mg/dL (7-23) H Creatinine 8.7 mg/dL (0.7-1.2) H Estimat Glomerular Filtration Rate 7.8 mL/min (>60) Glucose Level 91 mg/dL (74-106) Hemoglobin A1c 4.7 % (< 6.0) Uric Acid 6.2 mg/dL (3.0-7.5) Calcium Level 8.0 mg/dL (8.6-10.2) L Phosphorus Level 7.5 mg/dL (2.5-4.8) H Magnesium Level 2.0 mg/dL (1.7-2.5) Total Bilirubin 0.5 mg/dL (0.0-1.2) Gamma Glutamyl Transpeptidase 52 U/L (8-61) Aspartate Amino Transf (AST/SGOT) 23 U/L (5-40) Alanine Aminotransferase (ALT/SGPT) 18 U/L (3-41) Alkaline Phosphatase 137 U/L (40-129) H C-Reactive Protein, Quantitative 0.9 mg/dL (< 0.5) H Pro-B-Type Natriuretic Peptide 98964 pg/mL (0-125) H Total Protein 7.6 g/dL (6.6-8.7) Albumin 4.1 g/dL (3.5-5.2) Globulin 3.5 g/dL Albumin/Globulin Ratio 1.1 (1.0-2.7) Triglycerides Level 78 mg/dL (< 150) Cholesterol Level 173 mg/dL (< 200) LDL Cholesterol 46 mg/dL (60-99) L HDL Cholesterol > 111 mg/dL (> 60) H Cholesterol/HDL Ratio 1.0 (3.3-4.4) L Thyroid Stimulating Hormone (TSH) 3.920 uIU/mL (0.300-4.500) Intake and Output 07/14/17 07/15/17 19:00 07:00 Intake Total 480 ml Output Total 2000 ml Balance -1520 ml Intake Oral 480 ml Output Hemodialysis UF 2000 ml Objective General: alert, cooperative, no distress, appears stated age Head: normocephalic, without obvious abnormality, atraumatic Eyes: conjunctivae/corneas clear. PERRL, EOM's intact Throat: lips, mucosa, and tongue normal. MMM Neck: supple, symmetrical, trachea midline, and no JVD Lungs: clear to auscultation bilaterally Heart: regular rate and rhythm, S1, S2 normal, no murmur, click, rub or gallop Abdomen: soft, non-tender, non-distended, bowel sounds normal; no masses or organomegaly Extremities: extremities normal, atraumatic, no cyanosis or edema Pulses: 2+ and symmetric Skin: skin color, texture, turgor normal; no rashes or lesions Neurologic: grossly normal, no focal deficits Assessment/Plan Problem List: (1) Lumbar pain Assessment & Plan: Await tMRI. Cont pain management with dilaudid (2) HIV (human immunodeficiency virus infection) Assessment & Plan: Cont HAART per ID (3) ESRD on hemodialysis Assessment & Plan: Hemodialysis per nephrology Brown Mohr Sat (4) Hypertension Assessment & Plan: Continue atenolol (5) Atrial fibrillation (6) Asthma (7) Coronary artery disease (8) Gastroesophageal reflux (9) Diarrhea Status: not improved KRYSTIAN RICHTER Jul 14, 2017 19:10
[2017-07-15] VITALS (9 sets, daily range): BP systolic 90–116; BP diastolic 49–92
[2017-07-15] MEDS: HYDROmorphone 1mg/ml Carpuject IVP PRN ×5 (05:06→23:19)
[2017-07-15] MEDS: Heparin 5000 units/ml inj SUBQ SCH ×3 (05:09→22:00)
--- NOTE | 2017-07-15 06:30 | Anethesia Preoperative Eval ---
Anesthesia Pre-op PMH/ROS General Date of Evaluation: Jul 15, 2017 Time of Evaluation: 06:22 Anesthesiologist: radha ASA Score: ASA 4 Mallampati Score Class I : Soft palate, uvula, fauces, pillars visible Class II: Soft palate, uvula, fauces visible Class III: Soft palate, base of uvula visible Class IV: Only hard plate visible Mallampati Classification: Class II Surgeon: debbi Diagnosis: gibleed Surgical Procedure: egd Anesthesia History: none Social History: smoking - nonsmoker Allergies: Coded Allergies: FLUTICASONE (Unverified Allergy, Unknown, 02/23/17) LEVOFLOXACIN (Unverified Allergy, Unknown, 08/22/14) MORPHINE (Unverified Allergy, Unknown, 02/23/17) Uncoded Allergies: nasal spray (Allergy, Unknown, 07/03/15) Medications: see eMAR Past Medical History Cardiovascular: Reports: HTN, arrhythmia - afib Pulmonary: Reports: asthma Gastrointestinal/Genitourinary: Reports: ESRD - on dialysis Hematology/Immune: Reports: DVT Musculoskeletal/Integumentary: Reports: DDD, other - amputations PSxH Narrative: chest sx, abdominal sx Anesthesia Pre-op Phys. Exam Physician Exam Last Vital Signs Date Time Temp Pulse Resp B/P (MAP) Pulse Ox O2 Delivery O2 Flow Rate FiO2 07/15/17 05:36 97.7 07/15/17 04:00 61 20 90/50 97 Room Air Constitutional: NAD Neurologic: CN 2-12 intact Cardiovascular: RRR Respiratory: CTA Gastrointestinal: S/NT/ND Airway Exam Mallampati Score: Class II MO: full Neck: supple TMD: 2fb ROM: full Teeth: intact Anesthesia Pre-op A/P Labs Labs Test 07/13/17 08:50 07/14/17 05:30 07/15/17 05:45 White Blood Count 4.2 K/UL (4.8-10.8) 4.4 K/UL (4.8-10.8) 3.8 K/UL (4.8-10.8) Red Blood Count 3.70 M/UL (4.70-6.10) 3.77 M/UL (4.70-6.10) 3.62 M/UL (4.70-6.10) Hemoglobin 10.6 G/DL (14.2-18.0) 10.5 G/DL (14.2-18.0) 10.3 G/DL (14.2-18.0) Hematocrit 33.3 % (42.0-52.0) 33.4 % (42.0-52.0) 32.2 % (42.0-52.0) Mean Corpuscular Volume 90 FL (80-99) 88 FL (80-99) 89 FL (80-99) Mean Corpuscular Hemoglobin 28.7 PG (27.0-31.0) 27.8 PG (27.0-31.0) 28.5 PG (27.0-31.0) Mean Corpuscular Hemoglobin Concent 31.9 G/DL (32.0-36.0) 31.5 G/DL (32.0-36.0) 32.2 G/DL (32.0-36.0) Red Cell Distribution Width 18.0 % (11.6-14.8) 18.4 % (11.6-14.8) 18.2 % (11.6-14.8) Platelet Count 96 K/UL (150-450) 107 K/UL (150-450) 86 K/UL (150-450) Mean Platelet Volume 6.8 FL (6.5-10.1) 7.6 FL (6.5-10.1) 7.9 FL (6.5-10.1) Neutrophils (%) (Auto) % (45.0-75.0) 55.0 % (45.0-75.0) % (45.0-75.0) Lymphocytes (%) (Auto) % (20.0-45.0) 24.7 % (20.0-45.0) % (20.0-45.0) Monocytes (%) (Auto) % (1.0-10.0) 13.1 % (1.0-10.0) % (1.0-10.0) Eosinophils (%) (Auto) % (0.0-3.0) 6.6 % (0.0-3.0) % (0.0-3.0) Basophils (%) (Auto) % (0.0-2.0) 0.5 % (0.0-2.0) % (0.0-2.0) Differential Total Cells Counted 100 Neutrophils % (Manual) 56 % (45-75) Lymphocytes % (Manual) 29 % (20-45) Monocytes % (Manual) 14 % (1-10) Eosinophils % (Manual) 1 % (0-3) Basophils % (Manual) 0 % (0-2) Band Neutrophils 0 % (0-8) Platelet Estimate Decreased Platelet Morphology Normal Hypochromasia 1+ Macrocytosis 1+ Tear Drop Cells 1+ Ovalocytes 1+ Schistocytes 1+ Prothrombin Time 11.3 SEC (9.30-11.50) 11.3 SEC (9.30-11.50) Prothromb Time International Ratio 1.1 (0.9-1.1) 1.1 (0.9-1.1) Sodium Level 137 mEQ/L (135-145) 134 mEQ/L (135-145) 138 mEQ/L (135-145) Potassium Level 4.1 mEQ/L (3.4-4.9) 7.2 mEQ/L (3.4-4.9) 4.5 mEQ/L (3.4-4.9) Chloride Level 95 mEQ/L (98-107) 93 mEQ/L (98-107) 94 mEQ/L (98-107) Carbon Dioxide Level 26 mEQ/L (20-30) 24 mEQ/L (20-30) 28 mEQ/L (20-30) Anion Gap 16 (5-15) 17 (5-15) 16 (5-15) Blood Urea Nitrogen 43 mg/dL (7-23) 62 mg/dL (7-23) 55 mg/dL (7-23) Creatinine 7.0 mg/dL (0.7-1.2) 8.7 mg/dL (0.7-1.2) 7.8 mg/dL (0.7-1.2) Estimat Glomerular Filtration Rate 9.9 mL/min (>60) 7.8 mL/min (>60) 8.8 mL/min (>60) Glucose Level 95 mg/dL (74-106) 91 mg/dL (74-106) 87 mg/dL (74-106) Calcium Level 8.4 mg/dL (8.6-10.2) 8.0 mg/dL (8.6-10.2) 8.4 mg/dL (8.6-10.2) Phosphorus Level 5.3 mg/dL (2.5-4.8) 7.5 mg/dL (2.5-4.8) Magnesium Level 1.9 mg/dL (1.7-2.5) 2.0 mg/dL (1.7-2.5) Total Bilirubin 0.6 mg/dL (0.0-1.2) 0.5 mg/dL (0.0-1.2) Aspartate Amino Transf (AST/SGOT) 25 U/L (5-40) 23 U/L (5-40) Alanine Aminotransferase (ALT/SGPT) 21 U/L (3-41) 18 U/L (3-41) Alkaline Phosphatase 133 U/L (40-129) 137 U/L (40-129) Total Protein 7.5 g/dL (6.6-8.7) 7.6 g/dL (6.6-8.7) Albumin 4.0 g/dL (3.5-5.2) 4.1 g/dL (3.5-5.2) Globulin 3.5 g/dL 3.5 g/dL Albumin/Globulin Ratio 1.1 (1.0-2.7) 1.1 (1.0-2.7) Hemoglobin A1c 4.7 % (< 6.0) Uric Acid 6.2 mg/dL (3.0-7.5) Gamma Glutamyl Transpeptidase 52 U/L (8-61) C-Reactive Protein, Quantitative 0.9 mg/dL (< 0.5) Pro-B-Type Natriuretic Peptide 16444 pg/mL (0-125) Triglycerides Level 78 mg/dL (< 150) Cholesterol Level 173 mg/dL (< 200) LDL Cholesterol 46 mg/dL (60-99) HDL Cholesterol > 111 mg/dL (> 60) Cholesterol/HDL Ratio 1.0 (3.3-4.4) Thyroid Stimulating Hormone (TSH) 3.920 uIU/mL (0.300-4.500) Activated Partial Thromboplast Time 32 SEC (23-33) Labs Test 07/13/17 08:50 07/14/17 05:30 White Blood Count 4.2 K/UL (4.8-10.8) 4.4 K/UL (4.8-10.8) Red Blood Count 3.70 M/UL (4.70-6.10) 3.77 M/UL (4.70-6.10) Hemoglobin 10.6 G/DL (14.2-18.0) 10.5 G/DL (14.2-18.0) Hematocrit 33.3 % (42.0-52.0) 33.4 % (42.0-52.0) Mean Corpuscular Volume 90 FL (80-99) 88 FL (80-99) Mean Corpuscular Hemoglobin 28.7 PG (27.0-31.0) 27.8 PG (27.0-31.0) Mean Corpuscular Hemoglobin Concent 31.9 G/DL (32.0-36.0) 31.5 G/DL (32.0-36.0) Red Cell Distribution Width 18.0 % (11.6-14.8) 18.4 % (11.6-14.8) Platelet Count 96 K/UL (150-450) 107 K/UL (150-450) Mean Platelet Volume 6.8 FL (6.5-10.1) 7.6 FL (6.5-10.1) Neutrophils (%) (Auto) % (45.0-75.0) 55.0 % (45.0-75.0) Lymphocytes (%) (Auto) % (20.0-45.0) 24.7 % (20.0-45.0) Monocytes (%) (Auto) % (1.0-10.0) 13.1 % (1.0-10.0) Eosinophils (%) (Auto) % (0.0-3.0) 6.6 % (0.0-3.0) Basophils (%) (Auto) % (0.0-2.0) 0.5 % (0.0-2.0) Differential Total Cells Counted 100 Neutrophils % (Manual) 56 % (45-75) Lymphocytes % (Manual) 29 % (20-45) Monocytes % (Manual) 14 % (1-10) Eosinophils % (Manual) 1 % (0-3) Basophils % (Manual) 0 % (0-2) Band Neutrophils 0 % (0-8) Platelet Estimate Decreased Platelet Morphology Normal Hypochromasia 1+ Macrocytosis 1+ Tear Drop Cells 1+ Ovalocytes 1+ Schistocytes 1+ Prothrombin Time 11.3 SEC (9.30-11.50) Prothromb Time International Ratio 1.1 (0.9-1.1) Sodium Level 137 mEQ/L (135-145) 134 mEQ/L (135-145) Potassium Level 4.1 mEQ/L (3.4-4.9) 7.2 mEQ/L (3.4-4.9) Chloride Level 95 mEQ/L (98-107) 93 mEQ/L (98-107) Carbon Dioxide Level 26 mEQ/L (20-30) 24 mEQ/L (20-30) Anion Gap 16 (5-15) 17 (5-15) Blood Urea Nitrogen 43 mg/dL (7-23) 62 mg/dL (7-23) Creatinine 7.0 mg/dL (0.7-1.2) 8.7 mg/dL (0.7-1.2) Estimat Glomerular Filtration Rate 9.9 mL/min (>60) 7.8 mL/min (>60) Glucose Level 95 mg/dL (74-106) 91 mg/dL (74-106) Calcium Level 8.4 mg/dL (8.6-10.2) 8.0 mg/dL (8.6-10.2) Phosphorus Level 5.3 mg/dL (2.5-4.8) 7.5 mg/dL (2.5-4.8) Magnesium Level 1.9 mg/dL (1.7-2.5) 2.0 mg/dL (1.7-2.5) Total Bilirubin 0.6 mg/dL (0.0-1.2) 0.5 mg/dL (0.0-1.2) Aspartate Amino Transf (AST/SGOT) 25 U/L (5-40) 23 U/L (5-40) Alanine Aminotransferase (ALT/SGPT) 21 U/L (3-41) 18 U/L (3-41) Alkaline Phosphatase 133 U/L (40-129) 137 U/L (40-129) Total Protein 7.5 g/dL (6.6-8.7) 7.6 g/dL (6.6-8.7) Albumin 4.0 g/dL (3.5-5.2) 4.1 g/dL (3.5-5.2) Globulin 3.5 g/dL 3.5 g/dL Albumin/Globulin Ratio 1.1 (1.0-2.7) 1.1 (1.0-2.7) Hemoglobin A1c 4.7 % (< 6.0) Uric Acid 6.2 mg/dL (3.0-7.5) Gamma Glutamyl Transpeptidase 52 U/L (8-61) C-Reactive Protein, Quantitative 0.9 mg/dL (< 0.5) Pro-B-Type Natriuretic Peptide 59800 pg/mL (0-125) Triglycerides Level 78 mg/dL (< 150) Cholesterol Level 173 mg/dL (< 200) LDL Cholesterol 46 mg/dL (60-99) HDL Cholesterol > 111 mg/dL (> 60) Cholesterol/HDL Ratio 1.0 (3.3-4.4) Thyroid Stimulating Hormone (TSH) 3.920 uIU/mL (0.300-4.500) Risk Assessment & Plan Assessment: [email or web address] Plan: mac Status Change Before Surgery: No Pre-Antibiotics Drug: CRISTA Melgar Jul 15, 2017 06:30
[2017-07-15 06:54] LABS: INR 1.1 (0.9-1.1); PROTHROMBIN TIME 11.3 SEC (9.30-11.50)
[2017-07-15 07:00] LABS: CALCIUM 8.4 mg/dL (8.6-10.2); CREATININE 7.8 mg/dL (0.7-1.2); GLOMERULAR FILTRATION RATE 8.8 mL/min (>60); POTASSIUM 4.5 mEQ/L (3.4-4.9)
[2017-07-15 07:14] LABS: MEAN CORPUSCULAR HEMOGLOBIN 28.5 PG (27.0-31.0); MEAN CORPUSCULAR HGB CONC 32.2 G/DL (32.0-36.0); MEAN CORPUSCULAR VOLUME 89 FL (80-99); MEAN PLATELET VOLUME 7.9 FL (6.5-10.1); PLATELET COUNT 86 K/UL (150-450); RED BLOOD COUNT 3.62 M/UL (4.70-6.10); RED CELL DISTRIBUTION WIDTH 18.2 % (11.6-14.8); WHITE BLOOD COUNT 3.8 K/UL (4.8-10.8)
[2017-07-15] MEDS ORDERED: Propofol 200mg/20ml IV ONE (08:00)
[2017-07-15] MEDS ORDERED: Lidocaine 1% MPF 10mg/ml 5ml ONE (08:00)
--- NOTE | 2017-07-15 08:05 | Pre-Procedure Note/Attestation ---
Pre-Procedure Note/Attestation Complete Prior to Procedure Planned Procedure: not applicable Procedure Narrative: egd Indications for Procedure Pre-Operative Diagnosis: abd pain Attestation I attest that I discussed the nature of the procedure; its benefits; risks and complications; and alternatives (and the risks and benefits of such alternatives ), prior to the procedure, with the patient (or the patient's legal medical representative). I attest that, if there was a reasonable possibility of needing a blood transfusion, the patient (or the patient's legal medical representative) was given the [facility] standardized written summary, pursuant to the Brock Abby Blood Safety Act ([place] Health and Safety Code # 1645, as amended). I attest that I re-evaluated the patient just prior to the surgery and that there has been no change in the patient's H&P, except as documented below: CONNOR WHITLEY Jul 15, 2017 08:05
[2017-07-15] MEDS ORDERED: NS 550ML IV ONE (08:07)
[2017-07-15 08:24] LABS: EOSINOPHILS % (MANUAL) 9 % (0-3)
[2017-07-15 08:25] LABS: BAND NEUTROPHILS % (MANUAL) 0 % (0-8); BASOPHILS % (MANUAL) 0 % (0-2); LYMPHOCYTES % (MANUAL) 27 % (20-45); NEUTROPHILS % (MANUAL) 50 % (45-75); PLATELET ESTIMATE DECREASED; PLATELET MORPHOLOGY NORMAL; TOTAL CELLS COUNTED 100
[2017-07-15 08:26] LABS: ANISOCYTOSIS 2+; HYPOCHROMASIA 1+
[2017-07-15] MEDS ORDERED: Midazolam 2mg/2ml Inj IVP PRN (08:30)
[2017-07-15] MEDS ORDERED: Atropine Inj 1mg/10ml Syr IV PRN (08:30)
[2017-07-15] MEDS ORDERED: DiphenhydrAMINE 50mg/ml Inj IVP PRN (08:30)
[2017-07-15] MEDS ORDERED: Hydromorphone 0.5mg/0.5ml inj IVP PRN (08:30)
--- NOTE | 2017-07-15 08:42 | Endoscopy Procedure Note ---
Endoscopy Procedure Note Indication for Procedure: anemia Procedures Performed: EGD Operative Findings/Diagnosis: gastritis Specimen: yes Pt Tolerated Procedure Well: Yes Estimated Blood Loss: none Anesthesiologist: radha Anesthesia: MAC Implant(s) used?: No 50 yrs or older w/o bx or poly: Not Applicable 10yrs. F/U not recommended: Not Applicable CONNOR WHITLEY Jul 15, 2017 08:42
--- NOTE | 2017-07-15 09:17 | Immediate Post-Op Evaluation ---
Immediate Post-Op Evalulation Immediate Post-Op Evalulation Procedure: egd Date of Evaluation: Jul 15, 2017 Time of Evaluation: 08:47 IV Fluids: 175 Blood Products: none Estimated Blood Loss: ngligible Blood Pressure Systolic: 99 Blood Pressure Diastolic: 60 Pulse Rate: 59 Respiratory Rate: 18 O2 Sat by Pulse Oximetry: 100 Temperature (Fahrenheit): 98.9 Pain Score (1-10): 0 Nausea: No Vomiting: No Complications none Patient Status: awake, reacts, patent Hydration Status: adequate Drug: CRISTA Melgar Jul 15, 2017 09:17
[2017-07-15] MEDS: Esomeprazole sodium 40mg vial IVP SCH (10:25)
[2017-07-15] MEDS: Acyclovir 200mg Cap ORAL SCH (10:26)
[2017-07-15] MEDS: Ritonavir 100mg tab ORAL SCH (10:26)
[2017-07-15] MEDS: Isentress 400mg tab ORAL SCH ×2 (10:26→21:09)
[2017-07-15] MEDS: Sensipar 30mg Tab ORAL SCH (10:26)
[2017-07-15] MEDS: Docusate 100mg cap ORAL SCH ×3 (10:27→18:08)
[2017-07-15] MEDS: Aspirin EC 81mg tab ORAL SCH (10:27)
[2017-07-15] MEDS ORDERED: LORazepam Inj 2mg/ml 1ml IV ONE (11:20)
--- NOTE | 2017-07-15 11:24 | Infectious Diseases Prog Note ---
Assessment/Plan Assessment/Plan Assessment: The patient is a 52-year-old male with m HIV ( as per pt : well controlled on his regimen with CD4 count of over 300, undetected viral load ) HIV End-stage renal disease, on hemodialysis Hypertension. Atrial fibrillation. Asthma. GERD. History of cholecystectomy. History of VATS for empyema in 2010. History of AV graft in the right leg. PLAN: continue the patient on the HIV regimen , upon discharge, the patient will have followup with his HIV provider Monitor CBC. Monitor BMP. HD as per Nephrology Management of low back pain as per primary care team EGD Subjective Allergies: Coded Allergies: FLUTICASONE (Unverified Allergy, Unknown, 02/23/17) LEVOFLOXACIN (Unverified Allergy, Unknown, 08/22/14) MORPHINE (Unverified Allergy, Unknown, 02/23/17) Uncoded Allergies: nasal spray (Allergy, Unknown, 07/03/15) Objective Vital Signs Last 24 Hour Vital Signs Date Time Temp Pulse Resp B/P (MAP) Pulse Ox O2 Delivery O2 Flow Rate FiO2 07/15/17 10:27 63 123/73 07/15/17 09:17 59 18 100 07/15/17 08:59 98.0 64 17 103/60 99 Room Air 07/15/17 08:45 60 16 98/66 97 Room Air 07/15/17 08:40 61 12 105/68 99 Room Air 07/15/17 08:33 98.3 66 14 99/60 99 Room Air 07/15/17 07:30 97.3 68 20 116/79 95 Room Air 07/15/17 05:36 97.7 07/15/17 04:00 97.5 61 20 90/50 97 Room Air 07/14/17 20:00 97.2 56 18 90/50 98 Room Air 07/14/17 16:00 97.5 61 20 107/63 98 Room Air 07/14/17 12:00 97.7 61 20 103/55 98 Room Air Height (Feet): 6 Height (Inches): 2.00 Weight (Pounds): 198 Microbiology Date/Time Source Procedure Growth Status 07/13/17 06:20 Nasal Nares MRSA Culture - Final NO METHICILLIN RESISTANT STAPH AUREUS... Complete 07/13/17 06:20 Rectal Mucosa VRE Culture - Final Enterococcus Faecium - Vre Complete Laboratory Tests Test 07/15/17 05:45 White Blood Count 3.8 K/UL (4.8-10.8) L Red Blood Count 3.62 M/UL (4.70-6.10) L Hemoglobin 10.3 G/DL (14.2-18.0) L Hematocrit 32.2 % (42.0-52.0) L Mean Corpuscular Volume 89 FL (80-99) Mean Corpuscular Hemoglobin 28.5 PG (27.0-31.0) Mean Corpuscular Hemoglobin Concent 32.2 G/DL (32.0-36.0) Red Cell Distribution Width 18.2 % (11.6-14.8) H Platelet Count 86 K/UL (150-450) L Mean Platelet Volume 7.9 FL (6.5-10.1) Neutrophils (%) (Auto) % (45.0-75.0) Lymphocytes (%) (Auto) % (20.0-45.0) Monocytes (%) (Auto) % (1.0-10.0) Eosinophils (%) (Auto) % (0.0-3.0) Basophils (%) (Auto) % (0.0-2.0) Differential Total Cells Counted 100 Neutrophils % (Manual) 50 % (45-75) Lymphocytes % (Manual) 27 % (20-45) Monocytes % (Manual) 14 % (1-10) H Eosinophils % (Manual) 9 % (0-3) H Basophils % (Manual) 0 % (0-2) Band Neutrophils 0 % (0-8) Platelet Estimate Decreased L Platelet Morphology Normal Hypochromasia 1+ Anisocytosis 2+ Prothrombin Time 11.3 SEC (9.30-11.50) Prothromb Time International Ratio 1.1 (0.9-1.1) Activated Partial Thromboplast Time 32 SEC (23-33) Sodium Level 138 mEQ/L (135-145) Potassium Level 4.5 mEQ/L (3.4-4.9) Chloride Level 94 mEQ/L (98-107) L Carbon Dioxide Level 28 mEQ/L (20-30) Anion Gap 16 (5-15) H Blood Urea Nitrogen 55 mg/dL (7-23) H Creatinine 7.8 mg/dL (0.7-1.2) H Estimat Glomerular Filtration Rate 8.8 mL/min (>60) Glucose Level 87 mg/dL (74-106) Calcium Level 8.4 mg/dL (8.6-10.2) L Current Medications Medications (Trade) Dose Ordered Sig/Anum Route PRN Reason Start Time Stop Time Status Last Admin Dose Admin Acetaminophen (Tylenol) 650 mg Q4H PRN ORAL Mild Pain/Temp > 100.5 07/13/17 10:00 08/12/17 09:59 Acyclovir (Zovirax) 400 mg DAILY ORAL 07/13/17 12:00 08/12/17 11:59 07/15/17 10:26 Al Hydroxide/Mg Hydroxide (Mylanta) 15 ml Q1H PRN ORAL gi upset 07/15/17 08:30 07/15/17 13:00 Aspirin (Ecotrin) 81 mg DAILY ORAL 07/13/17 10:00 08/12/17 09:59 07/15/17 10:27 Atenolol (Tenormin) 50 mg DAILY ORAL 07/13/17 10:00 08/12/17 09:59 07/15/17 10:27 Atropine Sulfate (Atropine) 0.5 mg Q5M PRN IV bpm less than 45 07/15/17 08:30 07/15/17 13:00 Cinacalcet (Sensipar) 60 mg DAILY ORAL 07/13/17 10:00 08/12/17 09:59 07/15/17 10:26 Darunavir (Prezista) 800 mg DAILY ORAL 07/14/17 09:00 08/13/17 08:59 07/15/17 10:27 Diphenhydramine HCl (Benadryl) 25 mg DAILYPRN PRN IVP GIVE PRIOR 30MIN PRIOR TO HD 07/13/17 09:00 08/12/17 08:59 07/14/17 22:46 Diphenhydramine HCl (Benadryl) 25 mg Q15M PRN IVP Itching 07/15/17 08:30 07/15/17 13:00 Diphenhydramine HCl (Benadryl) 25 mg Q6H PRN IVP Itching 07/13/17 16:30 08/12/17 16:29 07/14/17 13:37 Docusate Sodium (Colace) 100 mg THREE TIMES A DAY ORAL 07/14/17 09:00 08/13/17 08:59 07/15/17 10:27 Esomeprazole Sodium (Nexium I.v.) 40 mg DAILY IVP 07/15/17 09:00 08/14/17 08:59 07/15/17 10:25 Gabapentin (Neurontin) 300 mg DAILY ORAL 07/13/17 10:00 08/12/17 09:59 07/15/17 10:27 Heparin Sodium (Porcine) (Heparin 5000 units/ml) 5,000 units EVERY 8 HOURS SUBQ 07/13/17 14:00 08/12/17 13:59 Hydralazine HCl (Apresoline) 5 mg Q30M PRN IV SBP>160 OR___/DBP>90 OR___ 07/15/17 08:30 07/15/17 13:00 Hydromorphone HCl (Dilaudid) 0.5 mg Q15M PRN IVP Severe Pain (Pain Scale 7-10) 07/15/17 08:30 07/15/17 13:00 Hydromorphone HCl (Dilaudid) 1 mg Q4H PRN IVP Severe Pain (Pain Scale 7-10) 07/13/17 08:30 07/20/17 08:29 07/15/17 09:15 Lorazepam (Ativan 2mg/ml 1ml) 1 mg ONCE ONCE IV 07/15/17 11:20 07/15/17 11:21 Midazolam HCl (Versed 2mg/2ml vial) 1 mg Q15M PRN IVP For Anxiety 07/15/17 08:30 07/15/17 13:00 Ondansetron HCl (Zofran) 4 mg Q1H PRN IVP Nausea & Vomiting 07/15/17 08:30 07/15/17 13:00 Ondansetron HCl (Zofran) 4 mg Q4H PRN IVP Nausea & Vomiting 07/13/17 09:30 08/12/17 09:29 07/13/17 17:53 Oxycodone HCl (Roxicodone) 30 mg Q6H PRN ORAL Moderate Pain (Pain Scale 4-6) 07/13/17 08:30 07/20/17 08:29 Pravastatin Sodium (Pravachol) 40 mg QHS ORAL 07/13/17 21:00 08/12/17 20:59 07/14/17 21:30 Raltegravir (Isentress) 400 mg Q12HR ORAL 07/14/17 09:00 08/13/17 08:59 07/15/17 10:26 Ritonavir (Norvir) 100 mg DAILY ORAL 07/13/17 12:00 08/12/17 11:59 07/15/17 10:26 Sevelamer Carbonate (Renvela) 2,400 mg THREE TIMES A DAY ORAL 07/13/17 10:00 08/12/17 09:59 07/15/17 10:26 SCOT COFFYE M.D. Jul 15, 2017 11:24
[2017-07-15] MEDS: DiphenhydrAMINE 50mg/ml Inj IVP PRN ×2 (11:33→21:01)
--- NOTE | 2017-07-15 14:05 | Diagnostic Imaging Report ---
Indication: Abdominal pain Technique: Lux-scale and duplex images of the upper abdomen were obtained Comparison: 02/23/2017 Findings: Gallbladder is surgically absent. Common bile duct measures 8 mm in diameter. This is slightly smaller than measured previously No intrahepatic biliary ductal dilatation. Liver demonstrates normal echogenicity, no focal abnormality. It is enlarged. Small amount of ascites fluid is again demonstrated. Portal vein and hepatic veins are patent. Pancreas is unremarkable. The spleen is enlarged, measuring 17.7 cm long axis diameter, previously 16.4 Left kidney measures 13.3 cm in length. Right kidney measures 12.1 cm length. Both kidneys demonstrate increased echogenicity There is no hydronephrosis. There are renal cysts bilaterally . Non-aneurysmal abdominal aorta . Impression: Hepatosplenomegaly. This is also demonstrated previously on 02/23/2017 Mild extrahepatic biliary ductal dilatation, unchanged from earlier exam and probably baseline for this patient, likely related to post cholecystectomy state Trace ascites, also previously described Bilateral echogenic kidneys, compatible with medical renal disease. 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
--- NOTE | 2017-07-15 14:06 | General Progress Note ---
Assessment/Plan Status: stable - from renal stand Assessment/Plan status: -. Human immunodeficiency virus. -. End-stage renal disease. 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 Hypertension. -. Asthma. -. Atrial fibrillation. -. Gastroesophageal reflux disease. Plan; HD done 07/14 next 07/16 per orders Subjective ROS Limited/Unobtainable: No Allergies: Coded Allergies: FLUTICASONE (Unverified Allergy, Unknown, 02/23/17) LEVOFLOXACIN (Unverified Allergy, Unknown, 08/22/14) MORPHINE (Unverified Allergy, Unknown, 02/23/17) Uncoded Allergies: nasal spray (Allergy, Unknown, 07/03/15) Objective Last 24 Hour Vital Signs Date Time Temp Pulse Resp B/P (MAP) Pulse Ox O2 Delivery O2 Flow Rate FiO2 07/15/17 13:00 97.4 71 20 107/92 97 Room Air 07/15/17 10:27 63 123/73 07/15/17 09:45 98.9 07/15/17 09:17 59 18 100 07/15/17 08:59 98.0 64 17 103/60 99 Room Air 07/15/17 08:45 60 16 98/66 97 Room Air 07/15/17 08:40 61 12 105/68 99 Room Air 07/15/17 08:33 98.3 66 14 99/60 99 Room Air 07/15/17 07:30 97.3 68 20 116/79 95 Room Air 07/15/17 04:00 97.5 61 20 90/50 97 Room Air 07/14/17 20:00 97.2 56 18 90/50 98 Room Air 07/14/17 16:00 97.5 61 20 107/63 98 Room Air Intake and Output 07/15/17 07/16/17 19:00 07:00 Intake Total 250 ml Output Total 0 ml Balance 250 ml IV Total 250 ml Estimated Blood Loss 0 ml Laboratory Tests 07/15/17 05:45: White Blood Count 3.8L, Red Blood Count 3.62L, Hemoglobin 10.3L, Hematocrit 32.2L, Mean Corpuscular Volume 89, Mean Corpuscular Hemoglobin 28.5, Mean Corpuscular Hemoglobin Concent 32.2, Red Cell Distribution Width 18.2H, Platelet Count 86L, Mean Platelet Volume 7.9, Neutrophils (%) (Auto) , Lymphocytes (%) (Auto) , Monocytes (%) (Auto) , Eosinophils (%) (Auto) , Basophils (%) (Auto) , Differential Total Cells Counted 100, Neutrophils % ( Manual) 50, Lymphocytes % (Manual) 27, Monocytes % (Manual) 14H, Eosinophils % ( Manual) 9H, Basophils % (Manual) 0, Band Neutrophils 0, Platelet Estimate DecreasedL, Platelet Morphology Normal, Hypochromasia 1+, Anisocytosis 2+, Prothrombin Time 11.3, Prothromb Time International Ratio 1.1, Activated Partial Thromboplast Time 32, Sodium Level 138, Potassium Level 4.5, Chloride Level 94L, Carbon Dioxide Level 28, Anion Gap 16H, Blood Urea Nitrogen 55H, Creatinine 7.8H, Estimat Glomerular Filtration Rate 8.8, Glucose Level 87, Calcium Level 8.4L Height (Feet): 6 Height (Inches): 2.00 Weight (Pounds): 198 General Appearance: no apparent distress Objective PE not changed RALEIGH VAZ Jul 15, 2017 14:05
--- NOTE | 2017-07-15 14:56 | Diagnostic Imaging Report ---
Indication: PAIN Technique: Sagittal T1 and T2 fast spin echo, sagittal STIR, axial T1 and T2 fast spin-echo images of the lumbar spine Comparison: None Findings: The bony alignment is normal. The vertebral body heights are preserved. The disc spaces are preserved. There is some evidence of disc desiccation. On the T1 and T2 weighted images, bands of low signal parallel the in place, with higher, presumably fat, signal centrally. Multiple intravertebral endplate herniations, so-called Schmorl's nodes, are noted multiple in place, largest involving the superior L3 endplate. No evidence of marrow edema. At T12-L1, no significant disc bulge or protrusion or spinal stenosis or neural foraminal narrowing. At L1-2, there is mild circumferential annular bulge. This, in combination with facet and ligamentum flavum hypertrophy, results in borderline narrowing of the spinal canal. There is borderline narrowing of the neural foramina at this level. At L2-3, there is circumferential annular bulge. This, in combination with facet and ligamentum flavum hypertrophy, results in mild narrowing of the spinal canal. The neural foramina are preserved. At L3-4, circumferential annular bulge, facet and ligamentum flavum hypertrophy result in mild narrowing of the spinal canal. The neural foramina are mildly narrowed at this level bilaterally. At L4-5, there is mild circumferential annular bulge, which results in borderline narrowing of the spinal canal and may impinge slightly on the lateral recesses bilaterally. There is mild to moderate narrowing of the bilateral neural foramina at this level. This is primarily due to the bulging disc. At L5-S1, there is mild circumferential annular bulge which does not significantly compromise the spinal canal. There may be mild narrowing of the left neural foramen due to the bulging disc as well as due to facet hypertrophy. The kidneys demonstrate innumerable cysts bilaterally. Impression: No acute bony trauma Mild degenerative changes, as delineated on a level by level basis above Abnormal vertebral body marrow pattern. 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 Bilateral multicystic kidneys, appearance consistent with polycystic kidney disease of uremia, also previously reported
--- NOTE | 2017-07-15 17:11 | Internal Med Progress Note ---
Subjective Physician Name Nabeel Hoff Attending Physician Nabeel Hoff MD Current Medications Medications (Trade) Dose Ordered Sig/Anum Route PRN Reason Start Time Stop Time Status Last Admin Dose Admin Acetaminophen (Tylenol) 650 mg Q4H PRN ORAL Mild Pain/Temp > 100.5 07/13/17 10:00 08/12/17 09:59 Acyclovir (Zovirax) 400 mg DAILY ORAL 07/13/17 12:00 08/12/17 11:59 07/15/17 10:26 Aspirin (Ecotrin) 81 mg DAILY ORAL 07/13/17 10:00 08/12/17 09:59 07/15/17 10:27 Atenolol (Tenormin) 50 mg DAILY ORAL 07/13/17 10:00 08/12/17 09:59 07/15/17 10:27 Cinacalcet (Sensipar) 60 mg DAILY ORAL 07/13/17 10:00 08/12/17 09:59 07/15/17 10:26 Darunavir (Prezista) 800 mg DAILY ORAL 07/14/17 09:00 08/13/17 08:59 07/15/17 10:27 Diphenhydramine HCl (Benadryl) 25 mg DAILYPRN PRN IVP GIVE PRIOR 30MIN PRIOR TO HD 07/13/17 09:00 08/12/17 08:59 07/14/17 22:46 Diphenhydramine HCl (Benadryl) 25 mg Q6H PRN IVP Itching 07/13/17 16:30 08/12/17 16:29 07/15/17 11:33 Docusate Sodium (Colace) 100 mg THREE TIMES A DAY ORAL 07/14/17 09:00 08/13/17 08:59 07/15/17 13:53 Esomeprazole Sodium (Nexium I.v.) 40 mg DAILY IVP 07/15/17 09:00 08/14/17 08:59 07/15/17 10:25 Gabapentin (Neurontin) 300 mg DAILY ORAL 07/13/17 10:00 08/12/17 09:59 07/15/17 10:27 Heparin Sodium (Porcine) (Heparin 5000 units/ml) 5,000 units EVERY 8 HOURS SUBQ 07/13/17 14:00 08/12/17 13:59 Hydromorphone HCl (Dilaudid) 1 mg Q4H PRN IVP Severe Pain (Pain Scale 7-10) 07/13/17 08:30 07/20/17 08:29 07/15/17 14:13 Ondansetron HCl (Zofran) 4 mg Q4H PRN IVP Nausea & Vomiting 07/13/17 09:30 08/12/17 09:29 07/13/17 17:53 Oxycodone HCl (Roxicodone) 30 mg Q6H PRN ORAL Moderate Pain (Pain Scale 4-6) 07/13/17 08:30 07/20/17 08:29 Pravastatin Sodium (Pravachol) 40 mg QHS ORAL 07/13/17 21:00 08/12/17 20:59 07/14/17 21:30 Raltegravir (Isentress) 400 mg Q12HR ORAL 07/14/17 09:00 08/13/17 08:59 07/15/17 10:26 Ritonavir (Norvir) 100 mg DAILY ORAL 07/13/17 12:00 08/12/17 11:59 07/15/17 10:26 Sevelamer Carbonate (Renvela) 2,400 mg THREE TIMES A DAY ORAL 07/13/17 10:00 08/12/17 09:59 07/15/17 13:53 Allergies: Coded Allergies: FLUTICASONE (Unverified Allergy, Unknown, 02/23/17) LEVOFLOXACIN (Unverified Allergy, Unknown, 08/22/14) MORPHINE (Unverified Allergy, Unknown, 02/23/17) Uncoded Allergies: nasal spray (Allergy, Unknown, 07/03/15) Subjective awake, alert, responsive, NAD Objective Last Vital Signs Date Time Temp Pulse Resp B/P (MAP) Pulse Ox O2 Delivery O2 Flow Rate FiO2 07/15/17 14:43 97.4 07/15/17 13:00 71 20 107/92 97 Room Air Laboratory Tests Test 07/15/17 05:45 White Blood Count 3.8 K/UL (4.8-10.8) L Red Blood Count 3.62 M/UL (4.70-6.10) L Hemoglobin 10.3 G/DL (14.2-18.0) L Hematocrit 32.2 % (42.0-52.0) L Mean Corpuscular Volume 89 FL (80-99) Mean Corpuscular Hemoglobin 28.5 PG (27.0-31.0) Mean Corpuscular Hemoglobin Concent 32.2 G/DL (32.0-36.0) Red Cell Distribution Width 18.2 % (11.6-14.8) H Platelet Count 86 K/UL (150-450) L Mean Platelet Volume 7.9 FL (6.5-10.1) Neutrophils (%) (Auto) % (45.0-75.0) Lymphocytes (%) (Auto) % (20.0-45.0) Monocytes (%) (Auto) % (1.0-10.0) Eosinophils (%) (Auto) % (0.0-3.0) Basophils (%) (Auto) % (0.0-2.0) Differential Total Cells Counted 100 Neutrophils % (Manual) 50 % (45-75) Lymphocytes % (Manual) 27 % (20-45) Monocytes % (Manual) 14 % (1-10) H Eosinophils % (Manual) 9 % (0-3) H Basophils % (Manual) 0 % (0-2) Band Neutrophils 0 % (0-8) Platelet Estimate Decreased L Platelet Morphology Normal Hypochromasia 1+ Anisocytosis 2+ Prothrombin Time 11.3 SEC (9.30-11.50) Prothromb Time International Ratio 1.1 (0.9-1.1) Activated Partial Thromboplast Time 32 SEC (23-33) Sodium Level 138 mEQ/L (135-145) Potassium Level 4.5 mEQ/L (3.4-4.9) Chloride Level 94 mEQ/L (98-107) L Carbon Dioxide Level 28 mEQ/L (20-30) Anion Gap 16 (5-15) H Blood Urea Nitrogen 55 mg/dL (7-23) H Creatinine 7.8 mg/dL (0.7-1.2) H Estimat Glomerular Filtration Rate 8.8 mL/min (>60) Glucose Level 87 mg/dL (74-106) Calcium Level 8.4 mg/dL (8.6-10.2) L Microbiology Date/Time Source Procedure Growth Status 07/13/17 06:20 Nasal Nares MRSA Culture - Final NO METHICILLIN RESISTANT STAPH AUREUS... Complete 07/13/17 06:20 Rectal Mucosa VRE Culture - Final Enterococcus Faecium - Vre Complete Intake and Output 07/15/17 07/16/17 19:00 07:00 Intake Total 250 ml Output Total 0 ml Balance 250 ml IV Total 250 ml Estimated Blood Loss 0 ml Objective General: No acute distress, awake and alert HEENT: NCAT, sclera anicteric, PERRL, EOMI. Neck: Supple, no significant jugular venous distention, Lungs: Good inspiratory effort, no accessory muscle use, clear to auscultation bilaterally, Heart: Regular rate and rhythm, normal S1/S2, no murmurs Abdomen: soft, nontender, nondistended. Normoactive bowel sounds. Extremities: No Cyanosis , clubbing or edema. Right groin dialysis cath. Neuro: A&O x 3, Able to move all extremities Psych: Normal mood and affect Assessment/Plan Assessment/Plan 1. Low back pain. 2. Diarrhea. 3. Dehydration. 4. Human-immunodeficiency virus. 5. End-stage renal disease on HD. 6. Hypertension. 7. Asthma. 8. Atrial fibrillation. 9. Gastroesophageal reflux disease. 10. Coronary artery disease. 11. History of pericardial effusion. 12. Peripheral vascular disease. 13. Gastritis Plan: Dialysis tomorrow EGD was done today --> Gastritis PT Mobility Heparin SQ pain controlled DC Planning soon Full code. US Abdomen Impression: Hepatosplenomegaly. This is also demonstrated previously on 02/23/2017 Mild extrahepatic biliary ductal dilatation, unchanged from earlier exam and probably baseline for this patient, likely related to post cholecystectomy state Trace ascites, also previously described Bilateral echogenic kidneys, compatible with medical renal disease. Multiple cysts likely indicate polycystic disease of uremia MRI of [place] spine Impression: No acute bony trauma Mild degenerative changes, as delineated on a level by level basis above Abnormal vertebral body marrow pattern. 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 Bilateral multicystic kidneys, appearance consistent with polycystic kidney disease of uremia, also previously reported Nabeel Hoff MD Jul 15, 2017 17:11
--- NOTE | 2017-07-15 18:11 | Pulmonology Progress Note ---
Assessment/Plan Problems: (1) ESRD on hemodialysis (2) Anemia in chronic kidney disease (3) Asthma (4) Abdominal pain (5) Pancreatitis, chronic (6) Coronary artery disease (7) HIV (human immunodeficiency virus infection) (8) Hepatitis B Assessment/Plan symptomatic treatmnet hd by nephrology check electrolytes contine HIV meds dc planning Subjective ROS Limited/Unobtainable: Yes Allergies: Coded Allergies: FLUTICASONE (Unverified Allergy, Unknown, 02/23/17) LEVOFLOXACIN (Unverified Allergy, Unknown, 08/22/14) MORPHINE (Unverified Allergy, Unknown, 02/23/17) Uncoded Allergies: nasal spray (Allergy, Unknown, 07/03/15) Objective Last 24 Hour Vital Signs Date Time Temp Pulse Resp B/P (MAP) Pulse Ox O2 Delivery O2 Flow Rate FiO2 07/15/17 14:43 97.4 07/15/17 13:00 97.4 71 20 107/92 97 Room Air 07/15/17 10:27 63 123/73 07/15/17 09:17 59 18 100 07/15/17 08:59 98.0 64 17 103/60 99 Room Air 07/15/17 08:45 60 16 98/66 97 Room Air 07/15/17 08:40 61 12 105/68 99 Room Air 07/15/17 08:33 98.3 66 14 99/60 99 Room Air 07/15/17 07:30 97.3 68 20 116/79 95 Room Air 07/15/17 04:00 97.5 61 20 90/50 97 Room Air 07/14/17 20:00 97.2 56 18 90/50 98 Room Air Intake and Output 07/15/17 07/16/17 19:00 07:00 Intake Total 250 ml Output Total 0 ml Balance 250 ml IV Total 250 ml Estimated Blood Loss 0 ml General Appearance: WD/WN HEENT: normocephalic, atraumatic Respiratory/Chest: chest wall non-tender, lungs clear, normal breath sounds Cardiovascular: normal peripheral pulses, normal rate Abdomen: soft, non tender Extremities: no cyanosis Skin: no rash Neurologic/Psychiatric: transit 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 Complete 07/13/17 06:20 Rectal Mucosa VRE Culture - Final Enterococcus Faecium - Vre Complete Laboratory Tests 07/15/17 05:45: White Blood Count 3.8L, Red Blood Count 3.62L, Hemoglobin 10.3L, Hematocrit 32.2L, Mean Corpuscular Volume 89, Mean Corpuscular Hemoglobin 28.5, Mean Corpuscular Hemoglobin Concent 32.2, Red Cell Distribution Width 18.2H, Platelet Count 86L, Mean Platelet Volume 7.9, Neutrophils (%) (Auto) , Lymphocytes (%) (Auto) , Monocytes (%) (Auto) , Eosinophils (%) (Auto) , Basophils (%) (Auto) , Differential Total Cells Counted 100, Neutrophils % ( Manual) 50, Lymphocytes % (Manual) 27, Monocytes % (Manual) 14H, Eosinophils % ( Manual) 9H, Basophils % (Manual) 0, Band Neutrophils 0, Platelet Estimate DecreasedL, Platelet Morphology Normal, Hypochromasia 1+, Anisocytosis 2+, Prothrombin Time 11.3, Prothromb Time International Ratio 1.1, Activated Partial Thromboplast Time 32, Sodium Level 138, Potassium Level 4.5, Chloride Level 94L, Carbon Dioxide Level 28, Anion Gap 16H, Blood Urea Nitrogen 55H, Creatinine 7.8H, Estimat Glomerular Filtration Rate 8.8, Glucose Level 87, Calcium Level 8.4L Current Medications Medications (Trade) Dose Ordered Sig/Anum Route PRN Reason Start Time Stop Time Status Last Admin Dose Admin Acetaminophen (Tylenol) 650 mg Q4H PRN ORAL Mild Pain/Temp > 100.5 07/13/17 10:00 08/12/17 09:59 Acyclovir (Zovirax) 400 mg DAILY ORAL 07/13/17 12:00 08/12/17 11:59 07/15/17 10:26 Aspirin (Ecotrin) 81 mg DAILY ORAL 07/13/17 10:00 08/12/17 09:59 07/15/17 10:27 Atenolol (Tenormin) 50 mg DAILY ORAL 07/13/17 10:00 08/12/17 09:59 07/15/17 10:27 Cinacalcet (Sensipar) 60 mg DAILY ORAL 07/13/17 10:00 08/12/17 09:59 07/15/17 10:26 Darunavir (Prezista) 800 mg DAILY ORAL 07/14/17 09:00 08/13/17 08:59 07/15/17 10:27 Diphenhydramine HCl (Benadryl) 25 mg DAILYPRN PRN IVP GIVE PRIOR 30MIN PRIOR TO HD 07/13/17 09:00 08/12/17 08:59 07/14/17 22:46 Diphenhydramine HCl (Benadryl) 25 mg Q6H PRN IVP Itching 07/13/17 16:30 08/12/17 16:29 07/15/17 11:33 Docusate Sodium (Colace) 100 mg THREE TIMES A DAY ORAL 07/14/17 09:00 08/13/17 08:59 07/15/17 13:53 Esomeprazole Sodium (Nexium I.v.) 40 mg DAILY IVP 07/15/17 09:00 08/14/17 08:59 07/15/17 10:25 Gabapentin (Neurontin) 300 mg DAILY ORAL 07/13/17 10:00 08/12/17 09:59 07/15/17 10:27 Heparin Sodium (Porcine) (Heparin 5000 units/ml) 5,000 units EVERY 8 HOURS SUBQ 07/13/17 14:00 08/12/17 13:59 Hydromorphone HCl (Dilaudid) 1 mg Q4H PRN IVP Severe Pain (Pain Scale 7-10) 07/13/17 08:30 07/20/17 08:29 07/15/17 14:13 Ondansetron HCl (Zofran) 4 mg Q4H PRN IVP Nausea & Vomiting 07/13/17 09:30 08/12/17 09:29 07/13/17 17:53 Oxycodone HCl (Roxicodone) 30 mg Q6H PRN ORAL Moderate Pain (Pain Scale 4-6) 07/13/17 08:30 07/20/17 08:29 Pravastatin Sodium (Pravachol) 40 mg QHS ORAL 07/13/17 21:00 08/12/17 20:59 07/14/17 21:30 Raltegravir (Isentress) 400 mg Q12HR ORAL 07/14/17 09:00 08/13/17 08:59 07/15/17 10:26 Ritonavir (Norvir) 100 mg DAILY ORAL 07/13/17 12:00 08/12/17 11:59 07/15/17 10:26 Sevelamer Carbonate (Renvela) 2,400 mg THREE TIMES A DAY ORAL 07/13/17 10:00 08/12/17 09:59 07/15/17 13:53 ARCADIO PETTIT Jul 15, 2017 18:11
--- NOTE | 2017-07-15 20:15 | Procedure Note ---
DATE OF PROCEDURE: 07/15/2017 SURGEON: Lenin Shrestha M.D. PROCEDURE: Upper endoscopy with biopsy. ANESTHESIOLOGIST: Geraldine Woo M.D. INSTRUMENT: Olympus adult flexible upper endoscope. INDICATION: Anemia and history of portal hypertensive gastropathy. Reason for Procedure: The procedure, risks, benefits, and possible consequences, including hemorrhage, aspiration, perforation and infection, and alternative treatments, were explained to the patient/legal guardian by Dr. Lenin Shrestha and the patient/legal guardian understood and accepted these risks. Description Of Procedure: After informed consent was obtained and the patient was adequately sedated, Olympus upper endoscope was advanced from mouth into the second portion of duodenum and retroflexion was performed in the stomach. The patient had evidence of grade 1 distal esophageal varices. No stigmata of bleeding, unable to banding. In the stomach, there was no evidence of gastric varices. There were multiple nodules in the antrum of the stomach, which were biopsied. Random biopsy from body and antrum was also obtained to rule out H. pylori infection. In the duodenum, there was inflammatory thickened fold, which was biopsied. The patient tolerated the procedure very well without any complication. SUMMARY OF FINDINGS: 1. Grade 1 distal esophageal varices. 2. Diffuse gastritis status post biopsy. 3. Gastric nodule status post biopsy. 4. Inflammatory looking fold in the duodenum status post biopsy. RECOMMENDATIONS: Follow biopsy results and treat accordingly. I want to thank Dr. Nabeel Hoff for this kind referral. Lenin Shrestha M.D. DR: SARAN JOB#: [id number] CC: Nabeel Hoff M.D.; Fax#: [phone]
[2017-07-16] VITALS (8 sets, daily range): BP systolic 97–119; BP diastolic 51–78
[2017-07-16] MEDS: DiphenhydrAMINE 50mg/ml Inj IVP PRN ×3 (02:59→18:48)
[2017-07-16] MEDS: HYDROmorphone 1mg/ml Carpuject IVP PRN ×3 (05:06→17:02)
[2017-07-16] MEDS: Heparin 5000 units/ml inj SUBQ SCH ×3 (05:45→21:30)
[2017-07-16 06:46] LABS: MEAN CORPUSCULAR HEMOGLOBIN 27.9 PG (27.0-31.0); MEAN CORPUSCULAR HGB CONC 31.3 G/DL (32.0-36.0); MEAN CORPUSCULAR VOLUME 89 FL (80-99); MEAN PLATELET VOLUME 8.1 FL (6.5-10.1); PLATELET COUNT 77 K/UL (150-450); RED BLOOD COUNT 3.54 M/UL (4.70-6.10); RED CELL DISTRIBUTION WIDTH 18.1 % (11.6-14.8); WHITE BLOOD COUNT 3.9 K/UL (4.8-10.8)
[2017-07-16 07:14] LABS: CALCIUM 8.3 mg/dL (8.6-10.2); CREATININE 9.8 mg/dL (0.7-1.2); GLOMERULAR FILTRATION RATE 6.8 mL/min (>60); POTASSIUM 5.6 mEQ/L (3.4-4.9)
--- NOTE | 2017-07-16 08:53 | General Progress Note ---
Assessment/Plan Status: stable Status Narrative On HD now Assessment/Plan status: -. Human immunodeficiency virus. -. End-stage renal disease. 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 Hypertension. -. Asthma. -. Atrial fibrillation. -. Gastroesophageal reflux disease. Plan; HD done 07/14 next 07/16 per orders Subjective ROS Limited/Unobtainable: No Allergies: Coded Allergies: FLUTICASONE (Unverified Allergy, Unknown, 02/23/17) LEVOFLOXACIN (Unverified Allergy, Unknown, 08/22/14) MORPHINE (Unverified Allergy, Unknown, 02/23/17) Uncoded Allergies: nasal spray (Allergy, Unknown, 07/03/15) Objective Last 24 Hour Vital Signs Date Time Temp Pulse Resp B/P (MAP) Pulse Ox O2 Delivery O2 Flow Rate FiO2 07/16/17 05:36 97.7 07/16/17 05:30 Room Air 07/16/17 05:30 97.5 58 20 107/59 98 Room Air 07/16/17 04:00 97.9 69 20 119/77 97 Room Air 07/16/17 00:00 97.7 64 20 116/78 99 Room Air 07/15/17 20:00 97.3 61 20 111/49 98 Room Air 07/15/17 16:00 97.6 61 20 103/65 96 Room Air 07/15/17 13:00 97.4 71 20 107/92 97 Room Air 07/15/17 10:27 63 123/73 07/15/17 09:17 59 18 100 07/15/17 08:59 98.0 64 17 103/60 99 Room Air Laboratory Tests 07/16/17 05:30: White Blood Count 3.9L, Red Blood Count 3.54L, Hemoglobin 9.9L, Hematocrit 31.5L , Mean Corpuscular Volume 89, Mean Corpuscular Hemoglobin 27.9, Mean Corpuscular Hemoglobin Concent 31.3L, Red Cell Distribution Width 18.1H, Platelet Count 77L, Mean Platelet Volume 8.1, Neutrophils (%) (Auto) , Lymphocytes (%) (Auto) , Monocytes (%) (Auto) , Eosinophils (%) (Auto) , Basophils (%) (Auto) , Neutrophils % (Manual) [Pending], Lymphocytes % (Manual) [Pending], Platelet Estimate [Pending], Platelet Morphology [Pending], Sodium Level 135, Potassium Level 5.6H, Chloride Level 93L, Carbon Dioxide Level 24, Anion Gap 18H, Blood Urea Nitrogen 83#H, Creatinine 9.8H, Estimat Glomerular Filtration Rate 6.8, Glucose Level 93, Calcium Level 8.3L Height (Feet): 6 Height (Inches): 2.00 Weight (Pounds): 199 General Appearance: no apparent distress Objective PE not changed RALEIGH VAZ Jul 16, 2017 08:53
--- NOTE | 2017-07-16 09:21 | General Progress Note ---
Assessment/Plan Problem List: (1) HIV (human immunodeficiency virus infection) ICD Codes: Z21 - HIV (human immunodeficiency virus infection) SNOMED: 44770764 (2) Hypertension ICD Codes: I10 - Hypertension SNOMED: 23254443 (3) Atrial fibrillation ICD Codes: I48.91 - Atrial fibrillation SNOMED: 49770040 (4) Anemia in chronic kidney disease ICD Codes: D63.1 - Anemia in chronic kidney disease; N03.9 - Anemia in chronic kidney disease SNOMED: 323664055 (5) ESRD on hemodialysis ICD Codes: N18.6 - ESRD on hemodialysis; Z99.2 - Dependence on renal dialysis SNOMED: 183586492 (6) Thrombocytopenia ICD Codes: D69.6 - Thrombocytopenia, unspecified SNOMED: 883964557 Assessment/Plan s/p EGD yesterday stable labs fu biopsy results Subjective ROS Limited/Unobtainable: Yes Allergies: Coded Allergies: FLUTICASONE (Unverified Allergy, Unknown, 02/23/17) LEVOFLOXACIN (Unverified Allergy, Unknown, 08/22/14) MORPHINE (Unverified Allergy, Unknown, 02/23/17) Uncoded Allergies: nasal spray (Allergy, Unknown, 07/03/15) Subjective no event over night Objective Last 24 Hour Vital Signs Date Time Temp Pulse Resp B/P (MAP) Pulse Ox O2 Delivery O2 Flow Rate FiO2 07/16/17 09:18 97.0 59 18 104/57 98 Room Air 07/16/17 05:36 97.7 07/16/17 05:30 Room Air 07/16/17 05:30 97.5 58 20 107/59 98 Room Air 07/16/17 04:00 97.9 69 20 119/77 97 Room Air 07/16/17 00:00 97.7 64 20 116/78 99 Room Air 07/15/17 20:00 97.3 61 20 111/49 98 Room Air 07/15/17 16:00 97.6 61 20 103/65 96 Room Air 07/15/17 13:00 97.4 71 20 107/92 97 Room Air 07/15/17 10:27 63 123/73 Laboratory Tests 07/16/17 05:30: White Blood Count 3.9L, Red Blood Count 3.54L, Hemoglobin 9.9L, Hematocrit 31.5L , Mean Corpuscular Volume 89, Mean Corpuscular Hemoglobin 27.9, Mean Corpuscular Hemoglobin Concent 31.3L, Red Cell Distribution Width 18.1H, Platelet Count 77L, Mean Platelet Volume 8.1, Neutrophils (%) (Auto) , Lymphocytes (%) (Auto) , Monocytes (%) (Auto) , Eosinophils (%) (Auto) , Basophils (%) (Auto) , Neutrophils % (Manual) [Pending], Lymphocytes % (Manual) [Pending], Platelet Estimate [Pending], Platelet Morphology [Pending], Sodium Level 135, Potassium Level 5.6H, Chloride Level 93L, Carbon Dioxide Level 24, Anion Gap 18H, Blood Urea Nitrogen 83#H, Creatinine 9.8H, Estimat Glomerular Filtration Rate 6.8, Glucose Level 93, Calcium Level 8.3L Height (Feet): 6 Height (Inches): 2.00 Weight (Pounds): 199 General Appearance: alert EENT: normal ENT inspection Neck: supple Cardiovascular: normal rate Respiratory/Chest: decreased breath sounds Abdomen: normal bowel sounds, non tender, soft Extremities: non-tender CONNOR WHITLEY Jul 16, 2017 09:21
[2017-07-16 09:22] LABS: ANISOCYTOSIS 1+; BAND NEUTROPHILS % (MANUAL) 0 % (0-8); BASOPHILS % (MANUAL) 1 % (0-2); EOSINOPHILS % (MANUAL) 4 % (0-3); HYPOCHROMASIA 1+; LYMPHOCYTES % (MANUAL) 22 % (20-45); NEUTROPHILS % (MANUAL) 58 % (45-75); OVALOCYTES 1+; PLATELET ESTIMATE DECREASED; PLATELET MORPHOLOGY NORMAL; TEAR DROP CELLS 1+; TOTAL CELLS COUNTED 100
[2017-07-16] MEDS: Isentress 400mg tab ORAL SCH ×2 (09:32→20:59)
[2017-07-16] MEDS: Docusate 100mg cap ORAL SCH ×3 (09:32→17:19)
[2017-07-16] MEDS: Acyclovir 200mg Cap ORAL SCH (09:32)
[2017-07-16] MEDS: Sensipar 30mg Tab ORAL SCH (09:32)
[2017-07-16] MEDS: Aspirin EC 81mg tab ORAL SCH (09:33)
[2017-07-16] MEDS: Esomeprazole sodium 40mg vial IVP SCH (09:48)
[2017-07-16] MEDS: Ritonavir 100mg tab ORAL SCH (09:48)
--- NOTE | 2017-07-16 14:37 | Internal Med Progress Note ---
Subjective Date of Service: Jul 16, 2017 Physician Name Richter,Krytsian Attending Physician Nabeel Hoff MD Current Medications Medications (Trade) Dose Ordered Sig/Anum Route PRN Reason Start Time Stop Time Status Last Admin Dose Admin Acetaminophen (Tylenol) 650 mg Q4H PRN ORAL Mild Pain/Temp > 100.5 07/13/17 10:00 08/12/17 09:59 Acyclovir (Zovirax) 400 mg DAILY ORAL 07/13/17 12:00 08/12/17 11:59 07/16/17 09:32 Aspirin (Ecotrin) 81 mg DAILY ORAL 07/13/17 10:00 08/12/17 09:59 07/16/17 09:33 Atenolol (Tenormin) 50 mg DAILY ORAL 07/13/17 10:00 08/12/17 09:59 07/15/17 10:27 Cinacalcet (Sensipar) 60 mg DAILY ORAL 07/13/17 10:00 08/12/17 09:59 07/16/17 09:32 Darunavir (Prezista) 800 mg DAILY ORAL 07/14/17 09:00 08/13/17 08:59 07/16/17 09:33 Diphenhydramine HCl (Benadryl) 25 mg DAILYPRN PRN IVP GIVE PRIOR 30MIN PRIOR TO HD 07/13/17 09:00 08/12/17 08:59 07/16/17 08:17 Diphenhydramine HCl (Benadryl) 25 mg Q6H PRN IVP Itching 07/13/17 16:30 08/12/17 16:29 07/16/17 02:59 Docusate Sodium (Colace) 100 mg THREE TIMES A DAY ORAL 07/14/17 09:00 08/13/17 08:59 07/16/17 14:11 Esomeprazole Sodium (Nexium I.v.) 40 mg DAILY IVP 07/15/17 09:00 08/14/17 08:59 07/16/17 09:48 Gabapentin (Neurontin) 300 mg DAILY ORAL 07/13/17 10:00 08/12/17 09:59 07/16/17 09:33 Heparin Sodium (Porcine) (Heparin 5000 units/ml) 5,000 units EVERY 8 HOURS SUBQ 07/13/17 14:00 08/12/17 13:59 Hydromorphone HCl (Dilaudid) 1 mg Q4H PRN IVP Severe Pain (Pain Scale 7-10) 07/13/17 08:30 07/20/17 08:29 07/16/17 11:32 Ondansetron HCl (Zofran) 4 mg Q4H PRN IVP Nausea & Vomiting 07/13/17 09:30 08/12/17 09:29 07/16/17 14:24 Oxycodone HCl (Roxicodone) 30 mg Q6H PRN ORAL Moderate Pain (Pain Scale 4-6) 07/13/17 08:30 07/20/17 08:29 Pravastatin Sodium (Pravachol) 40 mg QHS ORAL 07/13/17 21:00 08/12/17 20:59 07/15/17 21:11 Raltegravir (Isentress) 400 mg Q12HR ORAL 07/14/17 09:00 08/13/17 08:59 07/16/17 09:32 Ritonavir (Norvir) 100 mg DAILY ORAL 07/13/17 12:00 08/12/17 11:59 07/16/17 09:48 Sevelamer Carbonate (Renvela) 2,400 mg THREE TIMES A DAY ORAL 07/13/17 10:00 08/12/17 09:59 07/16/17 14:12 Allergies: Coded Allergies: FLUTICASONE (Unverified Allergy, Unknown, 02/23/17) LEVOFLOXACIN (Unverified Allergy, Unknown, 08/22/14) MORPHINE (Unverified Allergy, Unknown, 02/23/17) Uncoded Allergies: nasal spray (Allergy, Unknown, 07/03/15) ROS Limited/Unobtainable: No Constitutional: Reports: no symptoms HEENT: Reports: no symptoms Cardiovascular: Reports: no symptoms Respiratory: Reports: no symptoms Gastrointestinal/Abdominal: Reports: no symptoms Genitourinary: Reports: no symptoms Neurologic/Psychiatric: Reports: no symptoms Subjective 52 YO M admitted with low back pain and ESRD. Cover for Hilario nayak-Dr Hoff. Objective Last Vital Signs Date Time Temp Pulse Resp B/P (MAP) Pulse Ox O2 Delivery O2 Flow Rate FiO2 07/16/17 12:00 97.7 59 17 97/51 94 Room Air Laboratory Tests Test 07/16/17 05:30 White Blood Count 3.9 K/UL (4.8-10.8) L Red Blood Count 3.54 M/UL (4.70-6.10) L Hemoglobin 9.9 G/DL (14.2-18.0) L Hematocrit 31.5 % (42.0-52.0) L Mean Corpuscular Volume 89 FL (80-99) Mean Corpuscular Hemoglobin 27.9 PG (27.0-31.0) Mean Corpuscular Hemoglobin Concent 31.3 G/DL (32.0-36.0) L Red Cell Distribution Width 18.1 % (11.6-14.8) H Platelet Count 77 K/UL (150-450) L Mean Platelet Volume 8.1 FL (6.5-10.1) Neutrophils (%) (Auto) % (45.0-75.0) Lymphocytes (%) (Auto) % (20.0-45.0) Monocytes (%) (Auto) % (1.0-10.0) Eosinophils (%) (Auto) % (0.0-3.0) Basophils (%) (Auto) % (0.0-2.0) Differential Total Cells Counted 100 Neutrophils % (Manual) 58 % (45-75) Lymphocytes % (Manual) 22 % (20-45) Monocytes % (Manual) 15 % (1-10) H Eosinophils % (Manual) 4 % (0-3) H Basophils % (Manual) 1 % (0-2) Band Neutrophils 0 % (0-8) Platelet Estimate Decreased L Platelet Morphology Normal Hypochromasia 1+ Anisocytosis 1+ Tear Drop Cells 1+ Ovalocytes 1+ Sodium Level 135 mEQ/L (135-145) Potassium Level 5.6 mEQ/L (3.4-4.9) H Chloride Level 93 mEQ/L (98-107) L Carbon Dioxide Level 24 mEQ/L (20-30) Anion Gap 18 (5-15) H Blood Urea Nitrogen 83 mg/dL (7-23) #H Creatinine 9.8 mg/dL (0.7-1.2) H Estimat Glomerular Filtration Rate 6.8 mL/min (>60) Glucose Level 93 mg/dL (74-106) Calcium Level 8.3 mg/dL (8.6-10.2) L Intake and Output 07/16/17 07/17/17 19:00 07:00 Output Total 2400 ml Balance -2400 ml Hemodialysis UF 2400 ml Objective General: alert, cooperative, no distress, appears stated age Head: normocephalic, without obvious abnormality, atraumatic Eyes: conjunctivae/corneas clear. PERRL, EOM's intact Throat: lips, mucosa, and tongue normal. MMM Neck: supple, symmetrical, trachea midline, and no JVD Lungs: clear to auscultation bilaterally Heart: regular rate and rhythm, S1, S2 normal, no murmur, click, rub or gallop Abdomen: soft, non-tender, non-distended, bowel sounds normal; no masses or organomegaly Extremities: extremities normal, atraumatic, no cyanosis or edema Pulses: 2+ and symmetric Skin: skin color, texture, turgor normal; no rashes or lesions Neurologic: grossly normal, no focal deficits Assessment/Plan Problem List: (1) Lumbar pain Assessment & Plan: Cont pain management with dilaudid (2) HIV (human immunodeficiency virus infection) Assessment & Plan: Cont HAART per ID (3) ESRD on hemodialysis Assessment & Plan: Hemodialysis 07/16/17 per nephrology (4) Hypertension Assessment & Plan: Continue atenolol (5) Atrial fibrillation (6) Asthma (7) Coronary artery disease (8) Gastroesophageal reflux (9) Diarrhea Status: progressing KRYSTIAN RICHTER Jul 16, 2017 14:37
--- NOTE | 2017-07-16 19:17 | Pulmonology Progress Note ---
Assessment/Plan Problems: (1) ESRD on hemodialysis (2) Anemia in chronic kidney disease (3) Asthma (4) Abdominal pain (5) Pancreatitis, chronic (6) Coronary artery disease (7) HIV (human immunodeficiency virus infection) (8) Hepatitis B Assessment/Plan symptomatic treatmnet hd by nephrology check electrolytes contine HIV meds dc planning Subjective ROS Limited/Unobtainable: No Constitutional: Reports: no symptoms HEENT: Repors: no symptoms Respiratory: Reports: no symptoms Cardiovascular: Reports: no symptoms Gastrointestinal/Abdominal: Reports: no symptoms Allergies: Coded Allergies: FLUTICASONE (Unverified Allergy, Unknown, 02/23/17) LEVOFLOXACIN (Unverified Allergy, Unknown, 08/22/14) MORPHINE (Unverified Allergy, Unknown, 02/23/17) Uncoded Allergies: nasal spray (Allergy, Unknown, 07/03/15) Objective Last 24 Hour Vital Signs Date Time Temp Pulse Resp B/P (MAP) Pulse Ox O2 Delivery O2 Flow Rate FiO2 07/16/17 16:00 97.7 60 18 104/60 99 Room Air 07/16/17 12:00 97.7 59 17 97/51 94 Room Air 07/16/17 09:19 Room Air 07/16/17 09:18 97.0 59 18 104/57 98 Room Air 07/16/17 09:00 59 104/57 07/16/17 08:00 97.0 67 18 102/54 96 Bi-pap 07/16/17 05:36 97.7 07/16/17 05:30 Room Air 07/16/17 05:30 97.5 58 20 107/59 98 Room Air 07/16/17 04:00 97.9 69 20 119/77 97 Room Air 07/16/17 00:00 97.7 64 20 116/78 99 Room Air 07/15/17 20:00 97.3 61 20 111/49 98 Room Air Intake and Output 07/16/17 07/17/17 19:00 07:00 Output Total 2400 ml Balance -2400 ml Hemodialysis UF 2400 ml General Appearance: WD/WN, no acute distress HEENT: normocephalic, atraumatic Respiratory/Chest: chest wall non-tender, lungs clear Cardiovascular: normal peripheral pulses, normal rate Abdomen: normal bowel sounds, soft, non tender Genitourinary: normal external genitalia Extremities: no cyanosis, no clubbing Neurologic/Psychiatric: warp dyeing tender II-XII grossly normal, no motor/sensory deficits Laboratory Tests 07/16/17 05:30: White Blood Count 3.9L, Red Blood Count 3.54L, Hemoglobin 9.9L, Hematocrit 31.5L , Mean Corpuscular Volume 89, Mean Corpuscular Hemoglobin 27.9, Mean Corpuscular Hemoglobin Concent 31.3L, Red Cell Distribution Width 18.1H, Platelet Count 77L, Mean Platelet Volume 8.1, Neutrophils (%) (Auto) , Lymphocytes (%) (Auto) , Monocytes (%) (Auto) , Eosinophils (%) (Auto) , Basophils (%) (Auto) , Differential Total Cells Counted 100, Neutrophils % ( Manual) 58, Lymphocytes % (Manual) 22, Monocytes % (Manual) 15H, Eosinophils % ( Manual) 4H, Basophils % (Manual) 1, Band Neutrophils 0, Platelet Estimate DecreasedL, Platelet Morphology Normal, Hypochromasia 1+, Anisocytosis 1+, Tear Drop Cells 1+, Ovalocytes 1+, Sodium Level 135, Potassium Level 5.6H, Chloride Level 93L, Carbon Dioxide Level 24, Anion Gap 18H, Blood Urea Nitrogen 83#H, Creatinine 9.8H, Estimat Glomerular Filtration Rate 6.8, Glucose Level 93, Calcium Level 8.3L Current Medications Medications (Trade) Dose Ordered Sig/Anum Route PRN Reason Start Time Stop Time Status Last Admin Dose Admin Acetaminophen (Tylenol) 650 mg Q4H PRN ORAL Mild Pain/Temp > 100.5 07/13/17 10:00 08/12/17 09:59 Acyclovir (Zovirax) 400 mg DAILY ORAL 07/13/17 12:00 08/12/17 11:59 07/16/17 09:32 Aspirin (Ecotrin) 81 mg DAILY ORAL 07/13/17 10:00 08/12/17 09:59 07/16/17 09:33 Atenolol (Tenormin) 50 mg DAILY ORAL 07/13/17 10:00 08/12/17 09:59 07/15/17 10:27 Cinacalcet (Sensipar) 60 mg DAILY ORAL 07/13/17 10:00 08/12/17 09:59 07/16/17 09:32 Darunavir (Prezista) 800 mg DAILY ORAL 07/14/17 09:00 08/13/17 08:59 07/16/17 09:33 Diphenhydramine HCl (Benadryl) 25 mg DAILYPRN PRN IVP GIVE PRIOR 30MIN PRIOR TO HD 07/13/17 09:00 08/12/17 08:59 07/16/17 18:48 Diphenhydramine HCl (Benadryl) 25 mg Q6H PRN IVP Itching 07/13/17 16:30 08/12/17 16:29 07/16/17 02:59 Docusate Sodium (Colace) 100 mg THREE TIMES A DAY ORAL 07/14/17 09:00 08/13/17 08:59 07/16/17 17:19 Gabapentin (Neurontin) 300 mg DAILY ORAL 07/13/17 10:00 08/12/17 09:59 07/16/17 09:33 Heparin Sodium (Porcine) (Heparin 5000 units/ml) 5,000 units EVERY 8 HOURS SUBQ 07/13/17 14:00 08/12/17 13:59 Hydromorphone HCl (Dilaudid) 1 mg Q4H PRN IVP Severe Pain (Pain Scale 7-10) 07/16/17 21:00 07/23/17 20:59 Ondansetron HCl (Zofran) 4 mg Q4H PRN IVP Nausea & Vomiting 07/13/17 09:30 08/12/17 09:29 07/16/17 14:24 Oxycodone HCl (Roxicodone) 30 mg Q6H PRN ORAL Moderate Pain (Pain Scale 4-6) 07/13/17 08:30 07/20/17 08:29 Pantoprazole (Protonix) 40 mg DAILY ORAL 07/17/17 09:00 08/16/17 08:59 Pravastatin Sodium (Pravachol) 40 mg QHS ORAL 07/13/17 21:00 08/12/17 20:59 07/15/17 21:11 Raltegravir (Isentress) 400 mg Q12HR ORAL 07/14/17 09:00 08/13/17 08:59 07/16/17 09:32 Ritonavir (Norvir) 100 mg DAILY ORAL 9/13/17 12:00 08/12/17 11:59 07/16/17 09:48 Sevelamer Carbonate (Renvela) 2,400 mg THREE TIMES A DAY ORAL 07/13/17 10:00 08/12/17 09:59 07/16/17 17:29 ARCADIO PETTIT Jul 16, 2017 19:17
--- NOTE | 2017-07-16 20:51 | Infectious Diseases Prog Note ---
Assessment/Plan Assessment/Plan Assessment: The patient is a 52-year-old male with: HIV+, on cART - as per pt : well controlled on his regimen with CD4 count of over 300, undetected viral load Leukopenia, afebrile End-stage renal disease, on hemodialysis Anemia - SP EGD 07/15: grade I esophageal varices, diffuse gastritis, gastric nodule. Path: pending Atrial fibrillation. Asthma. GERD. History of cholecystectomy. History of VATS for empyema in 2010. History of AV graft in the right leg. VRE colonized Levaquin allergy Full Code PLAN: continue the patient on the HIV regimen , upon discharge, the patient will have followup with his HIV provider f/u path Monitor CBC. Monitor BMP. HD as per Nephrology Management of low back pain as per primary care team Subjective Allergies: Coded Allergies: FLUTICASONE (Unverified Allergy, Unknown, 02/23/17) LEVOFLOXACIN (Unverified Allergy, Unknown, 08/22/14) MORPHINE (Unverified Allergy, Unknown, 02/23/17) Uncoded Allergies: nasal spray (Allergy, Unknown, 07/03/15) Subjective remains afebrile SP EGD 07/15: grade I esophageal varices, diffuse gastritis, gastric nodule Objective Vital Signs Last 24 Hour Vital Signs Date Time Temp Pulse Resp B/P (MAP) Pulse Ox O2 Delivery O2 Flow Rate FiO2 07/16/17 20:24 60 18 Room Air 21 07/16/17 20:00 97.5 60 18 101/54 99 Room Air 07/16/17 16:00 97.7 60 18 104/60 99 Room Air 07/16/17 12:00 97.7 59 17 97/51 94 Room Air 07/16/17 09:19 Room Air 07/16/17 09:18 97.0 59 18 104/57 98 Room Air 07/16/17 09:00 59 104/57 07/16/17 08:00 97.0 67 18 102/54 96 Bi-pap 07/16/17 05:36 97.7 07/16/17 05:30 Room Air 07/16/17 05:30 97.5 58 20 107/59 98 Room Air 07/16/17 04:00 97.9 69 20 119/77 97 Room Air 07/16/17 00:00 97.7 64 20 116/78 99 Room Air Height (Feet): 6 Height (Inches): 2.00 Weight (Pounds): 199 General Appearance: no acute distress Respiratory/Chest: no respiratory distress Cardiovascular: normal rate, regular rhythm Abdomen: normal bowel sounds, soft, non tender, non distended Laboratory Tests Test 07/16/17 05:30 White Blood Count 3.9 K/UL (4.8-10.8) L Red Blood Count 3.54 M/UL (4.70-6.10) L Hemoglobin 9.9 G/DL (14.2-18.0) L Hematocrit 31.5 % (42.0-52.0) L Mean Corpuscular Volume 89 FL (80-99) Mean Corpuscular Hemoglobin 27.9 PG (27.0-31.0) Mean Corpuscular Hemoglobin Concent 31.3 G/DL (32.0-36.0) L Red Cell Distribution Width 18.1 % (11.6-14.8) H Platelet Count 77 K/UL (150-450) L Mean Platelet Volume 8.1 FL (6.5-10.1) Neutrophils (%) (Auto) % (45.0-75.0) Lymphocytes (%) (Auto) % (20.0-45.0) Monocytes (%) (Auto) % (1.0-10.0) Eosinophils (%) (Auto) % (0.0-3.0) Basophils (%) (Auto) % (0.0-2.0) Differential Total Cells Counted 100 Neutrophils % (Manual) 58 % (45-75) Lymphocytes % (Manual) 22 % (20-45) Monocytes % (Manual) 15 % (1-10) H Eosinophils % (Manual) 4 % (0-3) H Basophils % (Manual) 1 % (0-2) Band Neutrophils 0 % (0-8) Platelet Estimate Decreased L Platelet Morphology Normal Hypochromasia 1+ Anisocytosis 1+ Tear Drop Cells 1+ Ovalocytes 1+ Sodium Level 135 mEQ/L (135-145) Potassium Level 5.6 mEQ/L (3.4-4.9) H Chloride Level 93 mEQ/L (98-107) L Carbon Dioxide Level 24 mEQ/L (20-30) Anion Gap 18 (5-15) H Blood Urea Nitrogen 83 mg/dL (7-23) #H Creatinine 9.8 mg/dL (0.7-1.2) H Estimat Glomerular Filtration Rate 6.8 mL/min (>60) Glucose Level 93 mg/dL (74-106) Calcium Level 8.3 mg/dL (8.6-10.2) L Current Medications Medications (Trade) Dose Ordered Sig/Anum Route PRN Reason Start Time Stop Time Status Last Admin Dose Admin Acetaminophen (Tylenol) 650 mg Q4H PRN ORAL Mild Pain/Temp > 100.5 07/13/17 10:00 08/12/17 09:59 Acyclovir (Zovirax) 400 mg DAILY ORAL 07/13/17 12:00 08/12/17 11:59 07/16/17 09:32 Aspirin (Ecotrin) 81 mg DAILY ORAL 07/13/17 10:00 08/12/17 09:59 07/16/17 09:33 Atenolol (Tenormin) 50 mg DAILY ORAL 07/13/17 10:00 08/12/17 09:59 07/15/17 10:27 Cinacalcet (Sensipar) 60 mg DAILY ORAL 07/13/17 10:00 08/12/17 09:59 07/16/17 09:32 Darunavir (Prezista) 800 mg DAILY ORAL 07/14/17 09:00 08/13/17 08:59 07/16/17 09:33 Diphenhydramine HCl (Benadryl) 25 mg DAILYPRN PRN IVP GIVE PRIOR 30MIN PRIOR TO HD 07/13/17 09:00 08/12/17 08:59 07/16/17 18:48 Diphenhydramine HCl (Benadryl) 25 mg Q6H PRN IVP Itching 07/13/17 16:30 08/12/17 16:29 07/16/17 02:59 Docusate Sodium (Colace) 100 mg THREE TIMES A DAY ORAL 07/14/17 09:00 08/13/17 08:59 07/16/17 17:19 Gabapentin (Neurontin) 300 mg DAILY ORAL 07/13/17 10:00 08/12/17 09:59 07/16/17 09:33 Heparin Sodium (Porcine) (Heparin 5000 units/ml) 5,000 units EVERY 8 HOURS SUBQ 07/13/17 14:00 08/12/17 13:59 Hydromorphone HCl (Dilaudid) 1 mg Q4H PRN IVP Severe Pain (Pain Scale 7-10) 07/16/17 21:00 07/23/17 20:59 Ondansetron HCl (Zofran) 4 mg Q4H PRN IVP Nausea & Vomiting 07/13/17 09:30 08/12/17 09:29 07/16/17 14:24 Oxycodone HCl (Roxicodone) 30 mg Q6H PRN ORAL Moderate Pain (Pain Scale 4-6) 07/13/17 08:30 07/20/17 08:29 Pantoprazole (Protonix) 40 mg DAILY ORAL 07/17/17 09:00 08/16/17 08:59 Pravastatin Sodium (Pravachol) 40 mg QHS ORAL 07/13/17 21:00 08/12/17 20:59 07/15/17 21:11 Raltegravir (Isentress) 400 mg Q12HR ORAL 07/14/17 09:00 08/13/17 08:59 07/16/17 09:32 Ritonavir (Norvir) 100 mg DAILY ORAL 07/13/17 12:00 08/12/17 11:59 07/16/17 09:48 Sevelamer Carbonate (Renvela) 2,400 mg THREE TIMES A DAY ORAL 07/13/17 10:00 08/12/17 09:59 07/16/17 17:29 RAJI FIELDS Jul 16, 2017 20:51
[2017-07-16] MEDS: Hydromorphone 0.5mg/0.5ml inj IVP PRN (21:02)
[2017-07-17] VITALS: BP 107/62
[2017-07-17] MEDS: Hydromorphone 0.5mg/0.5ml inj IVP PRN ×5 (01:29→23:02)
[2017-07-17] MEDS: DiphenhydrAMINE 50mg/ml Inj IVP PRN ×2 (03:51→12:35)
[2017-07-17 04:00] VITALS: BP 104/52
[2017-07-17] MEDS: Heparin 5000 units/ml inj SUBQ SCH ×3 (05:49→21:54)
--- NOTE | 2017-07-17 07:15 | Infectious Diseases Prog Note ---
Assessment/Plan Assessment/Plan Assessment: The patient is a 52-year-old male with: HIV+, on cART - as per pt : well controlled on his regimen with CD4 count of over 300, undetected viral load Leukopenia, afebrile End-stage renal disease, on hemodialysis Anemia - SP EGD 07/15: grade I esophageal varices, diffuse gastritis, gastric nodule. Path: pending Atrial fibrillation. Low back pain - MRI L-spine: No acute bony trauma. Mild degenerative changes History of VATS for empyema in 2010. History of AV graft in the right leg. VRE colonized Levaquin allergy Full Code PLAN: continue the patient on the HIV regimen , upon discharge, the patient will have followup with his HIV provider f/u path Monitor CBC. Monitor BMP. HD as per Nephrology Management of low back pain as per primary care team Subjective Allergies: Coded Allergies: FLUTICASONE (Unverified Allergy, Unknown, 02/23/17) LEVOFLOXACIN (Unverified Allergy, Unknown, 08/22/14) MORPHINE (Unverified Allergy, Unknown, 02/23/17) Uncoded Allergies: nasal spray (Allergy, Unknown, 07/03/15) Subjective remains afebrile no new complaint Objective Vital Signs Last 24 Hour Vital Signs Date Time Temp Pulse Resp B/P (MAP) Pulse Ox O2 Delivery O2 Flow Rate FiO2 07/17/17 04:00 97.9 59 18 104/52 98 Room Air 07/17/17 00:00 98.1 61 18 107/62 97 Room Air 07/16/17 20:24 60 18 Room Air 21 07/16/17 20:00 97.5 60 18 101/54 99 Room Air 07/16/17 16:00 97.7 60 18 104/60 99 Room Air 07/16/17 12:00 97.7 59 17 97/51 94 Room Air 07/16/17 09:19 Room Air 07/16/17 09:18 97.0 59 18 104/57 98 Room Air 07/16/17 09:00 59 104/57 07/16/17 08:00 97.0 67 18 102/54 96 Bi-pap Height (Feet): 6 Height (Inches): 2.00 Weight (Pounds): 180 General Appearance: no acute distress Respiratory/Chest: no respiratory distress Cardiovascular: normal rate, regular rhythm Abdomen: normal bowel sounds, soft, non tender, non distended Current Medications Medications (Trade) Dose Ordered Sig/Anum Route PRN Reason Start Time Stop Time Status Last Admin Dose Admin Acetaminophen (Tylenol) 650 mg Q4H PRN ORAL Mild Pain/Temp > 100.5 07/13/17 10:00 08/12/17 09:59 Acyclovir (Zovirax) 400 mg DAILY ORAL 07/13/17 12:00 08/12/17 11:59 07/16/17 09:32 Aspirin (Ecotrin) 81 mg DAILY ORAL 07/13/17 10:00 08/12/17 09:59 07/16/17 09:33 Atenolol (Tenormin) 50 mg DAILY ORAL 07/13/17 10:00 08/12/17 09:59 07/15/17 10:27 Cinacalcet (Sensipar) 60 mg DAILY ORAL 07/13/17 10:00 08/12/17 09:59 07/16/17 09:32 Darunavir (Prezista) 800 mg DAILY ORAL 07/14/17 09:00 08/13/17 08:59 07/16/17 09:33 Diphenhydramine HCl (Benadryl) 25 mg DAILYPRN PRN IVP GIVE PRIOR 30MIN PRIOR TO HD 07/13/17 09:00 08/12/17 08:59 07/16/17 18:48 Diphenhydramine HCl (Benadryl) 25 mg Q6H PRN IVP Itching 07/13/17 16:30 08/12/17 16:29 07/17/17 03:51 Docusate Sodium (Colace) 100 mg THREE TIMES A DAY ORAL 07/14/17 09:00 08/13/17 08:59 07/16/17 17:19 Gabapentin (Neurontin) 300 mg DAILY ORAL 07/13/17 10:00 08/12/17 09:59 07/16/17 09:33 Heparin Sodium (Porcine) (Heparin 5000 units/ml) 5,000 units EVERY 8 HOURS SUBQ 07/13/17 14:00 08/12/17 13:59 Hydromorphone HCl (Dilaudid) 1 mg Q4H PRN IVP Severe Pain (Pain Scale 7-10) 07/16/17 21:00 07/23/17 20:59 07/17/17 05:39 Ondansetron HCl (Zofran) 4 mg Q4H PRN IVP Nausea & Vomiting 07/13/17 09:30 08/12/17 09:29 07/16/17 14:24 Oxycodone HCl (Roxicodone) 30 mg Q6H PRN ORAL Moderate Pain (Pain Scale 4-6) 07/13/17 08:30 07/20/17 08:29 Pantoprazole (Protonix) 40 mg DAILY ORAL 07/17/17 09:00 08/16/17 08:59 Pravastatin Sodium (Pravachol) 40 mg QHS ORAL 07/13/17 21:00 08/12/17 20:59 07/16/17 20:59 Raltegravir (Isentress) 400 mg Q12HR ORAL 07/14/17 09:00 08/13/17 08:59 07/16/17 20:59 Ritonavir (Norvir) 100 mg DAILY ORAL 07/13/17 12:00 08/12/17 11:59 07/16/17 09:48 Sevelamer Carbonate (Renvela) 2,400 mg THREE TIMES A DAY ORAL 07/13/17 10:00 08/12/17 09:59 07/16/17 17:29 RAJI FIELDS Jul 17, 2017 07:15
[2017-07-17 08:00] VITALS: BP 121/68
[2017-07-17] MEDS: Docusate 100mg cap ORAL SCH ×3 (08:35→17:37)
[2017-07-17] MEDS: Ritonavir 100mg tab ORAL SCH (08:35)
[2017-07-17] MEDS: Sensipar 30mg Tab ORAL SCH (08:36)
[2017-07-17] MEDS: Aspirin EC 81mg tab ORAL SCH (08:37)
[2017-07-17] MEDS: Acyclovir 200mg Cap ORAL SCH (08:38)
[2017-07-17] MEDS: Isentress 400mg tab ORAL SCH ×2 (08:39→20:26)
--- NOTE | 2017-07-17 09:43 | General Progress Note ---
Assessment/Plan Problem List: (1) HIV (human immunodeficiency virus infection) ICD Codes: Z21 - HIV (human immunodeficiency virus infection) SNOMED: 77415773 (2) Hypertension ICD Codes: I10 - Hypertension SNOMED: 62203452 (3) Atrial fibrillation ICD Codes: I48.91 - Atrial fibrillation SNOMED: 63267282 (4) Anemia in chronic kidney disease ICD Codes: D63.1 - Anemia in chronic kidney disease; N03.9 - Anemia in chronic kidney disease SNOMED: 752729619 (5) ESRD on hemodialysis ICD Codes: N18.6 - ESRD on hemodialysis; Z99.2 - Dependence on renal dialysis SNOMED: 376773083 (6) Thrombocytopenia ICD Codes: D69.6 - Thrombocytopenia, unspecified SNOMED: 415863577 Assessment/Plan s/p EGD on Tuesday stable labs fu biopsy results prn blood transfusion on HD Subjective ROS Limited/Unobtainable: Yes Allergies: Coded Allergies: FLUTICASONE (Unverified Allergy, Unknown, 02/23/17) LEVOFLOXACIN (Unverified Allergy, Unknown, 08/22/14) MORPHINE (Unverified Allergy, Unknown, 02/23/17) Uncoded Allergies: nasal spray (Allergy, Unknown, 07/03/15) Subjective no event over night Objective Last 24 Hour Vital Signs Date Time Temp Pulse Resp B/P (MAP) Pulse Ox O2 Delivery O2 Flow Rate FiO2 07/17/17 09:00 63 18 Room Air 07/17/17 08:40 61 121/68 07/17/17 08:00 97.3 61 19 121/68 96 Room Air 07/17/17 04:00 97.9 59 18 104/52 98 Room Air 07/17/17 00:00 98.1 61 18 107/62 97 Room Air 07/16/17 20:24 60 18 Room Air 21 07/16/17 20:00 97.5 60 18 101/54 99 Room Air 07/16/17 16:00 97.7 60 18 104/60 99 Room Air 07/16/17 12:00 97.7 59 17 97/51 94 Room Air Height (Feet): 6 Height (Inches): 2.00 Weight (Pounds): 180 General Appearance: alert EENT: normal ENT inspection Neck: supple Cardiovascular: normal rate Respiratory/Chest: lungs clear Abdomen: normal bowel sounds, non tender, soft Extremities: non-tender CONNOR WHITLEY Jul 17, 2017 09:43
[2017-07-17 12:00] VITALS: BP 102/57
--- NOTE | 2017-07-17 14:00 | Internal Med Progress Note ---
Subjective Date of Service: Jul 17, 2017 Physician Name Fabricio Richter Attending Physician Nabeel Hoff MD Current Medications Medications (Trade) Dose Ordered Sig/Anum Route PRN Reason Start Time Stop Time Status Last Admin Dose Admin Acetaminophen (Tylenol) 650 mg Q4H PRN ORAL Mild Pain/Temp > 100.5 07/13/17 10:00 08/12/17 09:59 Acyclovir (Zovirax) 400 mg DAILY ORAL 07/13/17 12:00 08/12/17 11:59 07/17/17 08:38 Aspirin (Ecotrin) 81 mg DAILY ORAL 07/13/17 10:00 08/12/17 09:59 07/17/17 08:37 Atenolol (Tenormin) 50 mg DAILY ORAL 07/13/17 10:00 08/12/17 09:59 07/17/17 08:40 Cinacalcet (Sensipar) 60 mg DAILY ORAL 07/13/17 10:00 08/12/17 09:59 07/17/17 08:36 Darunavir (Prezista) 800 mg DAILY ORAL 07/14/17 09:00 08/13/17 08:59 07/17/17 08:39 Diphenhydramine HCl (Benadryl) 25 mg DAILYPRN PRN IVP GIVE PRIOR 30MIN PRIOR TO HD 07/13/17 09:00 08/12/17 08:59 07/16/17 18:48 Diphenhydramine HCl (Benadryl) 25 mg Q6H PRN IVP Itching 07/13/17 16:30 08/12/17 16:29 07/17/17 12:35 Docusate Sodium (Colace) 100 mg THREE TIMES A DAY ORAL 07/14/17 09:00 08/13/17 08:59 07/17/17 13:30 Docusate Sodium (Colace) 100 mg TWICE A DAY ORAL 07/17/17 18:00 08/16/17 17:59 Gabapentin (Neurontin) 300 mg DAILY ORAL 07/13/17 10:00 08/12/17 09:59 07/17/17 08:38 Heparin Sodium (Porcine) (Heparin 5000 units/ml) 5,000 units EVERY 8 HOURS SUBQ 07/13/17 14:00 08/12/17 13:59 Hydromorphone HCl (Dilaudid) 1 mg Q4H PRN IVP Severe Pain (Pain Scale 7-10) 07/16/17 21:00 07/23/17 20:59 07/17/17 10:55 Ondansetron HCl (Zofran) 4 mg Q4H PRN IVP Nausea & Vomiting 07/13/17 09:30 08/12/17 09:29 07/17/17 12:35 Oxycodone HCl (Roxicodone) 30 mg Q6H PRN ORAL Moderate Pain (Pain Scale 4-6) 07/13/17 08:30 07/20/17 08:29 Pantoprazole (Protonix) 40 mg DAILY ORAL 07/17/17 09:00 08/16/17 08:59 07/17/17 08:38 Polyethylene Glycol (Miralax) 17 gm BEDTIME ORAL 07/17/17 21:00 08/16/17 20:59 Pravastatin Sodium (Pravachol) 40 mg QHS ORAL 07/13/17 21:00 08/12/17 20:59 07/16/17 20:59 Raltegravir (Isentress) 400 mg Q12HR ORAL 07/14/17 09:00 08/13/17 08:59 07/17/17 08:39 Ritonavir (Norvir) 100 mg DAILY ORAL 07/13/17 12:00 08/12/17 11:59 07/17/17 08:35 Sevelamer Carbonate (Renvela) 2,400 mg THREE TIMES A DAY ORAL 07/13/17 10:00 08/12/17 09:59 07/17/17 13:30 Allergies: Coded Allergies: FLUTICASONE (Unverified Allergy, Unknown, 02/23/17) LEVOFLOXACIN (Unverified Allergy, Unknown, 08/22/14) MORPHINE (Unverified Allergy, Unknown, 02/23/17) Uncoded Allergies: nasal spray (Allergy, Unknown, 07/03/15) ROS Limited/Unobtainable: No Constitutional: Reports: no symptoms HEENT: Reports: no symptoms Cardiovascular: Reports: no symptoms Respiratory: Reports: no symptoms Gastrointestinal/Abdominal: Reports: no symptoms Genitourinary: Reports: no symptoms Neurologic/Psychiatric: Reports: no symptoms Subjective 52 YO M admitted with low back pain and ESRD. Cover for Int med-Dr Hoff. Objective Last Vital Signs Date Time Temp Pulse Resp B/P (MAP) Pulse Ox O2 Delivery O2 Flow Rate FiO2 07/17/17 12:00 97.7 59 18 102/57 100 Room Air 07/16/17 20:24 21 Objective General: alert, cooperative, no distress, appears stated age Head: normocephalic, without obvious abnormality, atraumatic Eyes: conjunctivae/corneas clear. PERRL, EOM's intact Throat: lips, mucosa, and tongue normal. MMM Neck: supple, symmetrical, trachea midline, and no JVD Lungs: clear to auscultation bilaterally Heart: regular rate and rhythm, S1, S2 normal, no murmur, click, rub or gallop Abdomen: soft, non-tender, non-distended, bowel sounds normal; no masses or organomegaly Extremities: extremities normal, atraumatic, no cyanosis or edema Pulses: 2+ and symmetric Skin: skin color, texture, turgor normal; no rashes or lesions Neurologic: grossly normal, no focal deficits Assessment/Plan Problem List: (1) Lumbar pain Assessment & Plan: Cont pain management with dilaudid (2) HIV (human immunodeficiency virus infection) Assessment & Plan: Cont HAART per ID (3) ESRD on hemodialysis Assessment & Plan: Hemodialysis 07/16/17 per nephrology (4) Hypertension Assessment & Plan: Continue atenolol (5) Atrial fibrillation (6) Asthma (7) Coronary artery disease (8) Gastroesophageal reflux (9) Diarrhea Status: progressing Assessment/Plan Discharge planning FABRICIO RICHTER Jul 17, 2017 13:59
--- NOTE | 2017-07-17 14:54 | General Progress Note ---
Assessment/Plan Status: stable Status Narrative stable Assessment/Plan status: -. Human immunodeficiency virus. -. End-stage renal disease. 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 Hypertension. -. Asthma. -. Atrial fibrillation. -. Gastroesophageal reflux disease. Plan; HD 07/19 per orders ? DC ?? Subjective ROS Limited/Unobtainable: No Allergies: Coded Allergies: FLUTICASONE (Unverified Allergy, Unknown, 02/23/17) LEVOFLOXACIN (Unverified Allergy, Unknown, 08/22/14) MORPHINE (Unverified Allergy, Unknown, 02/23/17) Uncoded Allergies: nasal spray (Allergy, Unknown, 07/03/15) Objective Last 24 Hour Vital Signs Date Time Temp Pulse Resp B/P (MAP) Pulse Ox O2 Delivery O2 Flow Rate FiO2 07/17/17 12:00 97.7 59 18 102/57 100 Room Air 07/17/17 09:00 63 18 Room Air 07/17/17 08:40 61 121/68 07/17/17 08:00 97.3 61 19 121/68 96 Room Air 07/17/17 04:00 97.9 59 18 104/52 98 Room Air 07/17/17 00:00 98.1 61 18 107/62 97 Room Air 07/16/17 20:24 60 18 Room Air 21 07/16/17 20:00 97.5 60 18 101/54 99 Room Air 07/16/17 16:00 97.7 60 18 104/60 99 Room Air Height (Feet): 6 Height (Inches): 2.00 Weight (Pounds): 180 General Appearance: no apparent distress Objective PE not changed RALEIGH VAZ Jul 17, 2017 14:54
[2017-07-17 16:00] VITALS: BP 97/58
--- NOTE | 2017-07-17 16:15 | Pulmonology Progress Note ---
Assessment/Plan Problems: (1) ESRD on hemodialysis (2) Anemia in chronic kidney disease (3) Asthma (4) Abdominal pain (5) Pancreatitis, chronic (6) Coronary artery disease (7) HIV (human immunodeficiency virus infection) (8) Hepatitis B Assessment/Plan symptomatic treatmnet hd by nephrology check electrolytes continue HIV meds all notes and meds reviewed Subjective ROS Limited/Unobtainable: No Allergies: Coded Allergies: FLUTICASONE (Unverified Allergy, Unknown, 02/23/17) LEVOFLOXACIN (Unverified Allergy, Unknown, 08/22/14) MORPHINE (Unverified Allergy, Unknown, 02/23/17) Uncoded Allergies: nasal spray (Allergy, Unknown, 07/03/15) Objective Last 24 Hour Vital Signs Date Time Temp Pulse Resp B/P (MAP) Pulse Ox O2 Delivery O2 Flow Rate FiO2 07/17/17 16:00 97.9 63 17 97/58 96 Room Air 07/17/17 12:00 97.7 59 18 102/57 100 Room Air 07/17/17 09:00 63 18 Room Air 07/17/17 08:40 61 121/68 07/17/17 08:00 97.3 61 19 121/68 96 Room Air 07/17/17 04:00 97.9 59 18 104/52 98 Room Air 07/17/17 00:00 98.1 61 18 107/62 97 Room Air 07/16/17 20:24 60 18 Room Air 21 07/16/17 20:00 97.5 60 18 101/54 99 Room Air Objective General Appearance: WD/WN HEENT: normocephalic, atraumatic Respiratory/Chest: chest wall non-tender, lungs clear Cardiovascular: normal peripheral pulses, normal rate Abdomen: normal bowel sounds, soft, non tender Genitourinary: normal external genitalia Extremities: no cyanosis Skin: no rash 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, no motor/sensory deficits Current Medications Medications (Trade) Dose Ordered Sig/Anum Route PRN Reason Start Time Stop Time Status Last Admin Dose Admin Acetaminophen (Tylenol) 650 mg Q4H PRN ORAL Mild Pain/Temp > 100.5 07/13/17 10:00 08/12/17 09:59 Acyclovir (Zovirax) 400 mg DAILY ORAL 07/13/17 12:00 08/12/17 11:59 07/17/17 08:38 Aspirin (Ecotrin) 81 mg DAILY ORAL 07/13/17 10:00 08/12/17 09:59 07/17/17 08:37 Atenolol (Tenormin) 50 mg DAILY ORAL 07/13/17 10:00 08/12/17 09:59 07/17/17 08:40 Cinacalcet (Sensipar) 60 mg DAILY ORAL 07/13/17 10:00 08/12/17 09:59 07/17/17 08:36 Darunavir (Prezista) 800 mg DAILY ORAL 07/14/17 09:00 08/13/17 08:59 07/17/17 08:39 Diphenhydramine HCl (Benadryl) 25 mg DAILYPRN PRN IVP GIVE PRIOR 30MIN PRIOR TO HD 07/13/17 09:00 08/12/17 08:59 07/16/17 18:48 Diphenhydramine HCl (Benadryl) 25 mg Q6H PRN IVP Itching 07/13/17 16:30 08/12/17 16:29 07/17/17 12:35 Docusate Sodium (Colace) 100 mg THREE TIMES A DAY ORAL 07/14/17 09:00 08/13/17 08:59 07/17/17 13:30 Docusate Sodium (Colace) 100 mg TWICE A DAY ORAL 07/17/17 18:00 08/16/17 17:59 Gabapentin (Neurontin) 300 mg DAILY ORAL 07/13/17 10:00 08/12/17 09:59 07/17/17 08:38 Heparin Sodium (Porcine) (Heparin 5000 units/ml) 5,000 units EVERY 8 HOURS SUBQ 07/13/17 14:00 08/12/17 13:59 Hydromorphone HCl (Dilaudid) 1 mg Q4H PRN IVP Severe Pain (Pain Scale 7-10) 07/16/17 21:00 07/23/17 20:59 07/17/17 10:55 Ondansetron HCl (Zofran) 4 mg Q4H PRN IVP Nausea & Vomiting 07/13/17 09:30 08/12/17 09:29 07/17/17 12:35 Oxycodone HCl (Roxicodone) 30 mg Q6H PRN ORAL Moderate Pain (Pain Scale 4-6) 07/13/17 08:30 07/20/17 08:29 Pantoprazole (Protonix) 40 mg DAILY ORAL 07/17/17 09:00 08/16/17 08:59 07/17/17 08:38 Polyethylene Glycol (Miralax) 17 gm BEDTIME ORAL 07/17/17 21:00 08/16/17 20:59 Pravastatin Sodium (Pravachol) 40 mg QHS ORAL 07/13/17 21:00 08/12/17 20:59 07/16/17 20:59 Raltegravir (Isentress) 400 mg Q12HR ORAL 07/14/17 09:00 08/13/17 08:59 07/17/17 08:39 Ritonavir (Norvir) 100 mg DAILY ORAL 07/13/17 12:00 08/12/17 11:59 07/17/17 08:35 Sevelamer Carbonate (Renvela) 2,400 mg THREE TIMES A DAY ORAL 07/13/17 10:00 08/12/17 09:59 07/17/17 13:30 ARCADIO PETTIT Jul 17, 2017 16:15
[2017-07-17] MEDS ORDERED: Docusate 100mg cap ORAL SCH (18:00)
[2017-07-17 20:00] VITALS: BP 101/52
[2017-07-17] MEDS ORDERED: Miralax 17gm pkt ORAL SCH (21:00)
[2017-07-18] VITALS: BP 110/70
[2017-07-18] MEDS: Hydromorphone 0.5mg/0.5ml inj IVP PRN ×4 (03:29→17:36)
[2017-07-18] MEDS: DiphenhydrAMINE 50mg/ml Inj IVP PRN (03:29)
[2017-07-18 04:00] VITALS: BP 109/70
[2017-07-18] MEDS: Heparin 5000 units/ml inj SUBQ SCH ×2 (06:00→14:30)
[2017-07-18 06:41] LABS: MEAN CORPUSCULAR HEMOGLOBIN 28.5 PG (27.0-31.0); MEAN CORPUSCULAR HGB CONC 32.1 G/DL (32.0-36.0); MEAN CORPUSCULAR VOLUME 89 FL (80-99); PLATELET COUNT 77 K/UL (150-450); RED BLOOD COUNT 3.61 M/UL (4.70-6.10); WHITE BLOOD COUNT 4.1 K/UL (4.8-10.8)
[2017-07-18 07:04] LABS: CALCIUM 9.9 mg/dL (8.6-10.2); CREATININE 10.7 mg/dL (0.7-1.2); GLOMERULAR FILTRATION RATE 6.2 mL/min (>60)
[2017-07-18 07:06] LABS: POTASSIUM 6.8 mEQ/L (3.4-4.9)
[2017-07-18 08:00] VITALS: BP 121/69
[2017-07-18 08:11] LABS: BASOPHILS % (MANUAL) 1 % (0-2); EOSINOPHILS % (MANUAL) 1 % (0-3); LYMPHOCYTES % (MANUAL) 33 % (20-45); NEUTROPHILS % (MANUAL) 53 % (45-75); TOTAL CELLS COUNTED 100
[2017-07-18 08:12] LABS: ANISOCYTOSIS 1+; BAND NEUTROPHILS % (MANUAL) 0 % (0-8); HYPOCHROMASIA 1+; PLATELET ESTIMATE DECREASED; PLATELET MORPHOLOGY NORMAL; TARGET CELLS 1+
[2017-07-18] MEDS ORDERED: Sodium Polystyrene Sulfonate 15gm Powder ORAL ONE (09:00)
[2017-07-18] MEDS: Aspirin EC 81mg tab ORAL SCH (09:06)
[2017-07-18] MEDS: Sensipar 30mg Tab ORAL SCH (09:06)
[2017-07-18] MEDS: Acyclovir 200mg Cap ORAL SCH (09:06)
[2017-07-18] MEDS: Docusate 100mg cap ORAL SCH ×3 (09:07→17:34)
[2017-07-18] MEDS: Isentress 400mg tab ORAL SCH (09:07)
[2017-07-18] MEDS: Ritonavir 100mg tab ORAL SCH (09:33)
--- NOTE | 2017-07-18 09:56 | GI Progress Note ---
Assessment/Plan Problems: (1) Thrombocytopenia ICD Codes: D69.6 - Thrombocytopenia, unspecified SNOMED: 835267411 (2) Gastroesophageal reflux ICD Codes: K21.9 - Gastroesophageal reflux SNOMED: 505694340 (3) Diarrhea ICD Codes: R19.7 - Diarrhea, unspecified SNOMED: 68627569 (4) Anemia in chronic kidney disease ICD Codes: N18.9 - Chronic kidney disease, unspecified; D63.1 - Anemia in chronic kidney disease SNOMED: 151224600 (5) Abdominal pain ICD Codes: R10.9 - Abdominal pain SNOMED: 57493747 (6) Pancytopenia ICD Codes: D61.818 - Pancytopenia SNOMED: 926878586 Status: stable Status Narrative Discussed with Dr. Shrestha. Assessment/Plan s/p EGD on Tuesday >> gastritis abdominal U/S reviewed >> Hepatosplenomegaly. Mild extrahepatic biliary ductal dilatation, unchanged from earlier exam and probably baseline for this patient, likely related to post cholecystectomy state Bilateral echogenic kidneys, compatible with medical renal disease. Multiple cysts likely indicate polycystic disease of uremia. ok for DC per GI standpoint stable labs fu biopsy results prn blood transfusion on HD Subjective Gastrointestinal/Abdominal: Reports: no symptoms Objective Last 24 Hour Vital Signs Date Time Temp Pulse Resp B/P (MAP) Pulse Ox O2 Delivery O2 Flow Rate FiO2 07/18/17 09:08 54 121/69 07/18/17 08:45 97.7 07/18/17 07:45 61 18 Room Air 21 07/18/17 04:00 97.7 59 18 109/70 96 Room Air 07/18/17 00:00 97.4 69 19 110/70 96 Room Air 07/17/17 20:00 97.0 61 17 101/52 98 Room Air 07/17/17 19:56 54 18 Room Air 07/17/17 16:00 97.9 63 17 97/58 96 Room Air 07/17/17 12:00 97.7 59 18 102/57 100 Room Air Laboratory Tests Test 07/18/17 04:55 White Blood Count 4.1 K/UL (4.8-10.8) L Red Blood Count 3.61 M/UL (4.70-6.10) L Hemoglobin 10.3 G/DL (14.2-18.0) L Hematocrit 32.0 % (42.0-52.0) L Mean Corpuscular Volume 89 FL (80-99) Mean Corpuscular Hemoglobin 28.5 PG (27.0-31.0) Mean Corpuscular Hemoglobin Concent 32.1 G/DL (32.0-36.0) Red Cell Distribution Width 18.0 % (11.6-14.8) H Platelet Count 77 K/UL (150-450) L Mean Platelet Volume 10.0 FL (6.5-10.1) Neutrophils (%) (Auto) % (45.0-75.0) Lymphocytes (%) (Auto) % (20.0-45.0) Monocytes (%) (Auto) % (1.0-10.0) Eosinophils (%) (Auto) % (0.0-3.0) Basophils (%) (Auto) % (0.0-2.0) Differential Total Cells Counted 100 Neutrophils % (Manual) 53 % (45-75) Lymphocytes % (Manual) 33 % (20-45) Monocytes % (Manual) 12 % (1-10) H Eosinophils % (Manual) 1 % (0-3) Basophils % (Manual) 1 % (0-2) Band Neutrophils 0 % (0-8) Platelet Estimate Decreased L Platelet Morphology Normal Hypochromasia 1+ Anisocytosis 1+ Target Cells 1+ Sodium Level 132 mEQ/L (135-145) L Potassium Level 6.8 mEQ/L (3.4-4.9) *H Chloride Level 92 mEQ/L (98-107) L Carbon Dioxide Level 23 mEQ/L (20-30) Anion Gap 17 (5-15) H Blood Urea Nitrogen 77 mg/dL (7-23) H Creatinine 10.7 mg/dL (0.7-1.2) H Estimat Glomerular Filtration Rate 6.2 mL/min (>60) Glucose Level 69 mg/dL (74-106) L Calcium Level 9.9 mg/dL (8.6-10.2) Height (Feet): 6 Height (Inches): 2.00 Weight (Pounds): 195 General Appearance: no apparent distress, alert Cardiovascular: normal rate Respiratory/Chest: normal breath sounds, no respiratory distress Abdominal Exam: normal bowel sounds, non tender, soft Extremities: normal range of motion Steven,Harper Hammad N.P. Jul 18, 2017 09:56
[2017-07-18] MEDS: DiphenhydrAMINE 50mg/ml Inj IVP SCH ×2 (10:34→17:34)
--- NOTE | 2017-07-18 10:52 | Internal Med Progress Note ---
Subjective Date of Service: Jul 18, 2017 Physician Name Fabricio Richter Attending Physician Nabeel Hoff MD Current Medications Medications (Trade) Dose Ordered Sig/Anum Route PRN Reason Start Time Stop Time Status Last Admin Dose Admin Acetaminophen (Tylenol) 650 mg Q4H PRN ORAL Mild Pain/Temp > 100.5 07/13/17 10:00 08/12/17 09:59 Acyclovir (Zovirax) 400 mg DAILY ORAL 07/13/17 12:00 08/12/17 11:59 07/18/17 09:06 Aspirin (Ecotrin) 81 mg DAILY ORAL 07/13/17 10:00 08/12/17 09:59 07/18/17 09:06 Atenolol (Tenormin) 50 mg DAILY ORAL 07/13/17 10:00 08/12/17 09:59 07/18/17 09:08 Cinacalcet (Sensipar) 60 mg DAILY ORAL 07/13/17 10:00 08/12/17 09:59 07/18/17 09:06 Darunavir (Prezista) 800 mg DAILY ORAL 07/14/17 09:00 08/13/17 08:59 07/18/17 09:08 Diphenhydramine HCl (Benadryl) 25 mg Q6H IVP 07/18/17 10:30 08/17/17 10:29 07/18/17 10:34 Diphenhydramine HCl (Benadryl) 25 mg Q6H PRN IVP Itching 07/13/17 16:30 08/12/17 16:29 07/18/17 03:29 Docusate Sodium (Colace) 100 mg THREE TIMES A DAY ORAL 07/14/17 09:00 08/13/17 08:59 07/18/17 09:07 Gabapentin (Neurontin) 300 mg DAILY ORAL 07/13/17 10:00 08/12/17 09:59 07/18/17 09:06 Heparin Sodium (Porcine) (Heparin 5000 units/ml) 5,000 units EVERY 8 HOURS SUBQ 07/13/17 14:00 08/12/17 13:59 Hydromorphone HCl (Dilaudid) 1 mg Q4H PRN IVP Severe Pain (Pain Scale 7-10) 07/16/17 21:00 07/23/17 20:59 07/18/17 07:37 Ondansetron HCl (Zofran) 4 mg Q4H PRN IVP Nausea & Vomiting 07/13/17 09:30 08/12/17 09:29 07/18/17 07:37 Oxycodone HCl (Roxicodone) 30 mg Q6H PRN ORAL Moderate Pain (Pain Scale 4-6) 07/13/17 08:30 07/20/17 08:29 Pantoprazole (Protonix) 40 mg DAILY ORAL 07/17/17 09:00 08/16/17 08:59 07/18/17 09:06 Polyethylene Glycol (Miralax) 17 gm BEDTIME ORAL 07/17/17 21:00 08/16/17 20:59 07/17/17 20:26 Pravastatin Sodium (Pravachol) 40 mg QHS ORAL 07/13/17 21:00 08/12/17 20:59 07/17/17 20:27 Raltegravir (Isentress) 400 mg Q12HR ORAL 07/14/17 09:00 08/13/17 08:59 07/18/17 09:07 Ritonavir (Norvir) 100 mg DAILY ORAL 07/13/17 12:00 08/12/17 11:59 07/18/17 09:33 Sevelamer Carbonate (Renvela) 2,400 mg THREE TIMES A DAY ORAL 07/13/17 10:00 08/12/17 09:59 07/18/17 09:06 Allergies: Coded Allergies: FLUTICASONE (Unverified Allergy, Unknown, 02/23/17) LEVOFLOXACIN (Unverified Allergy, Unknown, 08/22/14) MORPHINE (Unverified Allergy, Unknown, 02/23/17) Uncoded Allergies: nasal spray (Allergy, Unknown, 07/03/15) ROS Limited/Unobtainable: No Constitutional: Reports: no symptoms HEENT: Reports: no symptoms Cardiovascular: Reports: no symptoms Respiratory: Reports: no symptoms Gastrointestinal/Abdominal: Reports: no symptoms Genitourinary: Reports: no symptoms Neurologic/Psychiatric: Reports: no symptoms Subjective 52 YO M admitted with low back pain and ESRD. Cover for Int med-Dr Hoff. Await discharge home after dialysis. Objective Last Vital Signs Date Time Temp Pulse Resp B/P (MAP) Pulse Ox O2 Delivery O2 Flow Rate FiO2 07/18/17 09:08 54 121/69 07/18/17 08:45 97.7 07/18/17 07:45 18 Room Air 21 07/18/17 04:00 96 Laboratory Tests Test 07/18/17 04:55 White Blood Count 4.1 K/UL (4.8-10.8) L Red Blood Count 3.61 M/UL (4.70-6.10) L Hemoglobin 10.3 G/DL (14.2-18.0) L Hematocrit 32.0 % (42.0-52.0) L Mean Corpuscular Volume 89 FL (80-99) Mean Corpuscular Hemoglobin 28.5 PG (27.0-31.0) Mean Corpuscular Hemoglobin Concent 32.1 G/DL (32.0-36.0) Red Cell Distribution Width 18.0 % (11.6-14.8) H Platelet Count 77 K/UL (150-450) L Mean Platelet Volume 10.0 FL (6.5-10.1) Neutrophils (%) (Auto) % (45.0-75.0) Lymphocytes (%) (Auto) % (20.0-45.0) Monocytes (%) (Auto) % (1.0-10.0) Eosinophils (%) (Auto) % (0.0-3.0) Basophils (%) (Auto) % (0.0-2.0) Differential Total Cells Counted 100 Neutrophils % (Manual) 53 % (45-75) Lymphocytes % (Manual) 33 % (20-45) Monocytes % (Manual) 12 % (1-10) H Eosinophils % (Manual) 1 % (0-3) Basophils % (Manual) 1 % (0-2) Band Neutrophils 0 % (0-8) Platelet Estimate Decreased L Platelet Morphology Normal Hypochromasia 1+ Anisocytosis 1+ Target Cells 1+ Sodium Level 132 mEQ/L (135-145) L Potassium Level 6.8 mEQ/L (3.4-4.9) *H Chloride Level 92 mEQ/L (98-107) L Carbon Dioxide Level 23 mEQ/L (20-30) Anion Gap 17 (5-15) H Blood Urea Nitrogen 77 mg/dL (7-23) H Creatinine 10.7 mg/dL (0.7-1.2) H Estimat Glomerular Filtration Rate 6.2 mL/min (>60) Glucose Level 69 mg/dL (74-106) L Calcium Level 9.9 mg/dL (8.6-10.2) Objective General: alert, cooperative, no distress, appears stated age Head: normocephalic, without obvious abnormality, atraumatic Eyes: conjunctivae/corneas clear. PERRL, EOM's intact Throat: lips, mucosa, and tongue normal. MMM Neck: supple, symmetrical, trachea midline, and no JVD Lungs: clear to auscultation bilaterally Heart: regular rate and rhythm, S1, S2 normal, no murmur, click, rub or gallop Abdomen: soft, non-tender, non-distended, bowel sounds normal; no masses or organomegaly Extremities: extremities normal, atraumatic, no cyanosis or edema Pulses: 2+ and symmetric Skin: skin color, texture, turgor normal; no rashes or lesions Neurologic: grossly normal, no focal deficits Assessment/Plan Problem List: (1) Lumbar pain Assessment & Plan: Cont pain management with dilaudid (2) HIV (human immunodeficiency virus infection) Assessment & Plan: Cont HAART per ID (3) ESRD on hemodialysis Assessment & Plan: Hemodialysis 07/16/17 per nephrology (4) Hypertension Assessment & Plan: Continue atenolol (5) Atrial fibrillation (6) Asthma (7) Coronary artery disease (8) Gastroesophageal reflux (9) Diarrhea Status: stable Assessment/Plan Discharge home today after dialysis. F/U Dr Foreman in 1 week FABRICIO RICHTER Jul 18, 2017 10:52
--- NOTE | 2017-07-18 11:40 | General Progress Note ---
Assessment/Plan Status: stable Status Narrative K 6.8 despite Renal diet Assessment/Plan status: -. Human immunodeficiency virus. -. End-stage renal disease. 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 Hypertension. -. Asthma. -. Atrial fibrillation. -. Gastroesophageal reflux disease. Plan; HD 07/18 [facility] Kayexel[facility] per orders ? DC after HD?? Subjective ROS Limited/Unobtainable: No Allergies: Coded Allergies: FLUTICASONE (Unverified Allergy, Unknown, 02/23/17) LEVOFLOXACIN (Unverified Allergy, Unknown, 08/22/14) MORPHINE (Unverified Allergy, Unknown, 02/23/17) Uncoded Allergies: nasal spray (Allergy, Unknown, 07/03/15) Objective Last 24 Hour Vital Signs Date Time Temp Pulse Resp B/P (MAP) Pulse Ox O2 Delivery O2 Flow Rate FiO2 07/18/17 09:08 54 121/69 07/18/17 08:45 97.7 07/18/17 07:45 61 18 Room Air 21 07/18/17 04:00 97.7 59 18 109/70 96 Room Air 07/18/17 00:00 97.4 69 19 110/70 96 Room Air 07/17/17 20:00 97.0 61 17 101/52 98 Room Air 07/17/17 19:56 54 18 Room Air 07/17/17 16:00 97.9 63 17 97/58 96 Room Air 07/17/17 12:00 97.7 59 18 102/57 100 Room Air Laboratory Tests 07/18/17 04:55: White Blood Count 4.1L, Red Blood Count 3.61L, Hemoglobin 10.3L, Hematocrit 32.0L, Mean Corpuscular Volume 89, Mean Corpuscular Hemoglobin 28.5, Mean Corpuscular Hemoglobin Concent 32.1, Red Cell Distribution Width 18.0H, Platelet Count 77L, Mean Platelet Volume 10.0, Neutrophils (%) (Auto) , Lymphocytes (%) (Auto) , Monocytes (%) (Auto) , Eosinophils (%) (Auto) , Basophils (%) (Auto) , Differential Total Cells Counted 100, Neutrophils % ( Manual) 53, Lymphocytes % (Manual) 33, Monocytes % (Manual) 12H, Eosinophils % ( Manual) 1, Basophils % (Manual) 1, Band Neutrophils 0, Platelet Estimate DecreasedL, Platelet Morphology Normal, Hypochromasia 1+, Anisocytosis 1+, Target Cells 1+, Sodium Level 132L, Potassium Level 6.8*H, Chloride Level 92L, Carbon Dioxide Level 23, Anion Gap 17H, Blood Urea Nitrogen 77H, Creatinine 10.7H, Estimat Glomerular Filtration Rate 6.2, Glucose Level 69L, Calcium Level 9.9 Height (Feet): 6 Height (Inches): 2.00 Weight (Pounds): 195 General Appearance: no apparent distress Objective PE not changed RALEIGH VAZ Jul 18, 2017 11:40
[2017-07-18 12:00] VITALS: BP 102/64
[2017-07-18 12:01] VITALS: BP 110/70
--- NOTE | 2017-07-18 12:18 | Infectious Diseases Prog Note ---
Assessment/Plan Assessment/Plan Assessment: The patient is a 52-year-old male with: HIV+, on cART - as per pt : well controlled on his regimen with CD4 count of over 300, undetected viral load Leukopenia, afebrile End-stage renal disease, on hemodialysis Anemia - SP EGD 07/15: grade I esophageal varices, diffuse gastritis, gastric nodule. Path: pending Atrial fibrillation. Low back pain - MRI L-spine: No acute bony trauma. Mild degenerative changes History of VATS for empyema in 2010. History of AV graft in the right leg. VRE colonized Levaquin allergy Full Code PLAN: continue the patient on the HIV regimen , upon discharge, the patient will have followup with his HIV provider f/u path Monitor CBC. Monitor BMP. HD as per Nephrology Management of low back pain as per primary care team Subjective Allergies: Coded Allergies: FLUTICASONE (Unverified Allergy, Unknown, 02/23/17) LEVOFLOXACIN (Unverified Allergy, Unknown, 08/22/14) MORPHINE (Unverified Allergy, Unknown, 02/23/17) Uncoded Allergies: nasal spray (Allergy, Unknown, 07/03/15) Subjective no new complain Objective Vital Signs Last 24 Hour Vital Signs Date Time Temp Pulse Resp B/P (MAP) Pulse Ox O2 Delivery O2 Flow Rate FiO2 07/18/17 09:08 54 121/69 07/18/17 08:45 97.7 07/18/17 07:45 61 18 Room Air 21 07/18/17 04:00 97.7 59 18 109/70 96 Room Air 07/18/17 00:00 97.4 69 19 110/70 96 Room Air 07/17/17 20:00 97.0 61 17 101/52 98 Room Air 07/17/17 19:56 54 18 Room Air 07/17/17 16:00 97.9 63 17 97/58 96 Room Air Height (Feet): 6 Height (Inches): 2.00 Weight (Pounds): 195 HEENT: atraumatic Respiratory/Chest: no respiratory distress Cardiovascular: regularly irregular Abdomen: non distended Laboratory Tests Test 07/18/17 04:55 White Blood Count 4.1 K/UL (4.8-10.8) L Red Blood Count 3.61 M/UL (4.70-6.10) L Hemoglobin 10.3 G/DL (14.2-18.0) L Hematocrit 32.0 % (42.0-52.0) L Mean Corpuscular Volume 89 FL (80-99) Mean Corpuscular Hemoglobin 28.5 PG (27.0-31.0) Mean Corpuscular Hemoglobin Concent 32.1 G/DL (32.0-36.0) Red Cell Distribution Width 18.0 % (11.6-14.8) H Platelet Count 77 K/UL (150-450) L Mean Platelet Volume 10.0 FL (6.5-10.1) Neutrophils (%) (Auto) % (45.0-75.0) Lymphocytes (%) (Auto) % (20.0-45.0) Monocytes (%) (Auto) % (1.0-10.0) Eosinophils (%) (Auto) % (0.0-3.0) Basophils (%) (Auto) % (0.0-2.0) Differential Total Cells Counted 100 Neutrophils % (Manual) 53 % (45-75) Lymphocytes % (Manual) 33 % (20-45) Monocytes % (Manual) 12 % (1-10) H Eosinophils % (Manual) 1 % (0-3) Basophils % (Manual) 1 % (0-2) Band Neutrophils 0 % (0-8) Platelet Estimate Decreased L Platelet Morphology Normal Hypochromasia 1+ Anisocytosis 1+ Target Cells 1+ Sodium Level 132 mEQ/L (135-145) L Potassium Level 6.8 mEQ/L (3.4-4.9) *H Chloride Level 92 mEQ/L (98-107) L Carbon Dioxide Level 23 mEQ/L (20-30) Anion Gap 17 (5-15) H Blood Urea Nitrogen 77 mg/dL (7-23) H Creatinine 10.7 mg/dL (0.7-1.2) H Estimat Glomerular Filtration Rate 6.2 mL/min (>60) Glucose Level 69 mg/dL (74-106) L Calcium Level 9.9 mg/dL (8.6-10.2) Current Medications Medications (Trade) Dose Ordered Sig/Anum Route PRN Reason Start Time Stop Time Status Last Admin Dose Admin Acetaminophen (Tylenol) 650 mg Q4H PRN ORAL Mild Pain/Temp > 100.5 07/13/17 10:00 08/12/17 09:59 Acyclovir (Zovirax) 400 mg DAILY ORAL 07/13/17 12:00 08/12/17 11:59 07/18/17 09:06 Aspirin (Ecotrin) 81 mg DAILY ORAL 07/13/17 10:00 08/12/17 09:59 07/18/17 09:06 Atenolol (Tenormin) 50 mg DAILY ORAL 07/13/17 10:00 08/12/17 09:59 07/18/17 09:08 Cinacalcet (Sensipar) 60 mg DAILY ORAL 07/13/17 10:00 08/12/17 09:59 07/18/17 09:06 Darunavir (Prezista) 800 mg DAILY ORAL 07/14/17 09:00 08/13/17 08:59 07/18/17 09:08 Diphenhydramine HCl (Benadryl) 25 mg Q6H IVP 07/18/17 10:30 08/17/17 10:29 07/18/17 10:34 Diphenhydramine HCl (Benadryl) 25 mg Q6H PRN IVP Itching 07/13/17 16:30 08/12/17 16:29 07/18/17 03:29 Docusate Sodium (Colace) 100 mg THREE TIMES A DAY ORAL 07/14/17 09:00 08/13/17 08:59 07/18/17 09:07 Gabapentin (Neurontin) 300 mg DAILY ORAL 07/13/17 10:00 08/12/17 09:59 07/18/17 09:06 Heparin Sodium (Porcine) (Heparin 5000 units/ml) 5,000 units EVERY 8 HOURS SUBQ 07/13/17 14:00 08/12/17 13:59 Hydromorphone HCl (Dilaudid) 1 mg Q4H PRN IVP Severe Pain (Pain Scale 7-10) 07/16/17 21:00 07/23/17 20:59 07/18/17 07:37 Ondansetron HCl (Zofran) 4 mg Q4H PRN IVP Nausea & Vomiting 07/13/17 09:30 08/12/17 09:29 07/18/17 07:37 Oxycodone HCl (Roxicodone) 30 mg Q6H PRN ORAL Moderate Pain (Pain Scale 4-6) 07/13/17 08:30 07/20/17 08:29 Pantoprazole (Protonix) 40 mg DAILY ORAL 07/17/17 09:00 08/16/17 08:59 07/18/17 09:06 Polyethylene Glycol (Miralax) 17 gm BEDTIME ORAL 07/17/17 21:00 08/16/17 20:59 07/17/17 20:26 Pravastatin Sodium (Pravachol) 40 mg QHS ORAL 07/13/17 21:00 08/12/17 20:59 07/17/17 20:27 Raltegravir (Isentress) 400 mg Q12HR ORAL 07/14/17 09:00 08/13/17 08:59 07/18/17 09:07 Ritonavir (Norvir) 100 mg DAILY ORAL 07/13/17 12:00 08/12/17 11:59 07/18/17 09:33 Sevelamer Carbonate (Renvela) 2,400 mg THREE TIMES A DAY ORAL 07/13/17 10:00 08/12/17 09:59 07/18/17 09:06 SCOT COFFEY M.D. Jul 18, 2017 12:18
--- NOTE | 2017-07-18 18:16 | Pulmonology Progress Note ---
Assessment/Plan Problems: (1) ESRD on hemodialysis (2) Anemia in chronic kidney disease (3) Asthma (4) Abdominal pain (5) Pancreatitis, chronic (6) Coronary artery disease (7) HIV (human immunodeficiency virus infection) (8) Hepatitis B Assessment/Plan symptomatic treatmnet hd by nephrology check electrolytes continue HIV meds check K dc after HD, all notes and meds reviewed Subjective ROS Limited/Unobtainable: No Constitutional: Reports: no symptoms HEENT: Repors: no symptoms Respiratory: Reports: no symptoms Allergies: Coded Allergies: FLUTICASONE (Unverified Allergy, Unknown, 02/23/17) LEVOFLOXACIN (Unverified Allergy, Unknown, 08/22/14) MORPHINE (Unverified Allergy, Unknown, 02/23/17) Uncoded Allergies: nasal spray (Allergy, Unknown, 07/03/15) Objective Last 24 Hour Vital Signs Date Time Temp Pulse Resp B/P (MAP) Pulse Ox O2 Delivery O2 Flow Rate FiO2 07/18/17 16:08 Room Air 21 07/18/17 12:40 Room Air 21 07/18/17 12:01 97.7 54 18 110/70 96 07/18/17 12:00 98.2 60 18 102/64 99 07/18/17 09:08 54 121/69 07/18/17 08:45 97.7 07/18/17 08:00 97.5 54 16 121/69 97 07/18/17 07:45 61 18 Room Air 21 07/18/17 04:00 97.7 59 18 109/70 96 Room Air 07/18/17 00:00 97.4 69 19 110/70 96 Room Air 07/17/17 20:00 97.0 61 17 101/52 98 Room Air 07/17/17 19:56 54 18 Room Air Intake and Output 07/18/17 07/19/17 19:00 07:00 Output Total 2000 ml Balance -2000 ml Hemodialysis UF 2000 ml Objective General Appearance: WD/WN HEENT: normocephalic, atraumatic Respiratory/Chest: chest wall non-tender, lungs clear Cardiovascular: normal peripheral pulses, normal rate Abdomen: normal bowel sounds, soft, non tender Genitourinary: normal external genitalia Extremities: no cyanosis Skin: no rash Neurologic/Psychiatric: software intern II-XII grossly normal, no motor/sensory deficits Laboratory Tests 07/18/17 04:55: White Blood Count 4.1L, Red Blood Count 3.61L, Hemoglobin 10.3L, Hematocrit 32.0L, Mean Corpuscular Volume 89, Mean Corpuscular Hemoglobin 28.5, Mean Corpuscular Hemoglobin Concent 32.1, Red Cell Distribution Width 18.0H, Platelet Count 77L, Mean Platelet Volume 10.0, Neutrophils (%) (Auto) , Lymphocytes (%) (Auto) , Monocytes (%) (Auto) , Eosinophils (%) (Auto) , Basophils (%) (Auto) , Differential Total Cells Counted 100, Neutrophils % ( Manual) 53, Lymphocytes % (Manual) 33, Monocytes % (Manual) 12H, Eosinophils % ( Manual) 1, Basophils % (Manual) 1, Band Neutrophils 0, Platelet Estimate DecreasedL, Platelet Morphology Normal, Hypochromasia 1+, Anisocytosis 1+, Target Cells 1+, Sodium Level 132L, Potassium Level 6.8*H, Chloride Level 92L, Carbon Dioxide Level 23, Anion Gap 17H, Blood Urea Nitrogen 77H, Creatinine 10.7H, Estimat Glomerular Filtration Rate 6.2, Glucose Level 69L, Calcium Level 9.9 Current Medications Medications (Trade) Dose Ordered Sig/Anum Route PRN Reason Start Time Stop Time Status Last Admin Dose Admin Acetaminophen (Tylenol) 650 mg Q4H PRN ORAL Mild Pain/Temp > 100.5 07/13/17 10:00 08/12/17 09:59 Acyclovir (Zovirax) 400 mg DAILY ORAL 07/13/17 12:00 08/12/17 11:59 07/18/17 09:06 Aspirin (Ecotrin) 81 mg DAILY ORAL 07/13/17 10:00 08/12/17 09:59 07/18/17 09:06 Atenolol (Tenormin) 50 mg DAILY ORAL 07/13/17 10:00 08/12/17 09:59 07/18/17 09:08 Cinacalcet (Sensipar) 60 mg DAILY ORAL 07/13/17 10:00 08/12/17 09:59 07/18/17 09:06 Darunavir (Prezista) 800 mg DAILY ORAL 07/14/17 09:00 08/13/17 08:59 07/18/17 09:08 Diphenhydramine HCl (Benadryl) 25 mg Q6H IVP 07/18/17 10:30 08/17/17 10:29 07/18/17 17:34 Diphenhydramine HCl (Benadryl) 25 mg Q6H PRN IVP Itching 07/13/17 16:30 08/12/17 16:29 07/18/17 03:29 Docusate Sodium (Colace) 100 mg THREE TIMES A DAY ORAL 07/14/17 09:00 08/13/17 08:59 07/18/17 17:34 Gabapentin (Neurontin) 300 mg DAILY ORAL 07/13/17 10:00 08/12/17 09:59 07/18/17 09:06 Heparin Sodium (Porcine) (Heparin 5000 units/ml) 5,000 units EVERY 8 HOURS SUBQ 07/13/17 14:00 08/12/17 13:59 Hydromorphone HCl (Dilaudid) 1 mg Q4H PRN IVP Severe Pain (Pain Scale 7-10) 07/16/17 21:00 07/23/17 20:59 07/18/17 17:36 Ondansetron HCl (Zofran) 4 mg Q4H PRN IVP Nausea & Vomiting 07/13/17 09:30 08/12/17 09:29 07/18/17 07:37 Oxycodone HCl (Roxicodone) 30 mg Q6H PRN ORAL Moderate Pain (Pain Scale 4-6) 07/13/17 08:30 07/20/17 08:29 Pantoprazole (Protonix) 40 mg DAILY ORAL 07/17/17 09:00 08/16/17 08:59 07/18/17 09:06 Polyethylene Glycol (Miralax) 17 gm BEDTIME ORAL 07/17/17 21:00 08/16/17 20:59 07/17/17 20:26 Pravastatin Sodium (Pravachol) 40 mg QHS ORAL 07/13/17 21:00 08/12/17 20:59 07/17/17 20:27 Raltegravir (Isentress) 400 mg Q12HR ORAL 07/14/17 09:00 08/13/17 08:59 07/18/17 09:07 Ritonavir (Norvir) 100 mg DAILY ORAL 07/13/17 12:00 08/12/17 11:59 07/18/17 09:33 Sevelamer Carbonate (Renvela) 2,400 mg THREE TIMES A DAY ORAL 07/13/17 10:00 08/12/17 09:59 07/18/17 17:35 ARCADIO PETTIT Jul 18, 2017 18:16
--- NOTE | 2017-07-19 11:44 | Discharge Summary ---
Discharge Summary Hospital Course Date of Admission Jul 13, 2017 at 05:45 Date of Discharge Jul 18, 2017 at 19:21 Admitting Diagnosis HPI Larry Sen is a 52 year old male who was admitted on Jul 13, 2017 at 05:45 for Back Pain,End Stage Renal Disease On Hemodialysis Hospital Course dc summary #[id number] Discharge Medications Continued Medications: Acetaminophen (Acetaminophen) 650 Mg/20.3 Ml Soln 650 MG ORAL Q4HR PRN for Prn Headache/Temp > 101, ML 0 Refills Acyclovir* (Zovirax*) 800 Mg Tablet 400 MG ORAL DAILY, #30 CAP 0 Refills Aspirin Ec* (Aspirin Ec*) 81 Mg Tablet.dr 81 MG ORAL DAILY, TAB Atenolol* (Tenormin*) 50 Mg Tablet 50 MG ORAL DAILY, TAB Cinacalcet Hcl (Sensipar) 60 Mg Tablet 60 MG ORAL DAILY, #60 Darunavir Ethanolate (Prezista) 800 Mg Tablet 800 MG ORAL DAILY, #30 Diphenhydramine HCl (Diphenhydramine HCl) 50 Mg/Ml Soln 25 MG IV 3XW PRN for before each dialysis Gabapentin* (Gabapentin*) 300 Mg Capsule 300 MG ORAL BID, CAP 0 Refills Meloxicam* (Meloxicam*) 7.5 Mg Tablet 1 TAB ORAL HS, #60 Ondansetron Hcl (Ondansetron Hcl) 4 Mg Tablet 1 TAB ORAL PRN PRN for Nausea & Vomiting, #30 Oxycodone Hcl* (Oxycodone Hcl*) 15 Mg Tablet 30 MG ORAL Q6H PRN for For Pain, TAB Pravastatin Sod* (Pravastatin Sod*) 20 Mg Tablet 40 MG ORAL DAILY, TAB Raltegravir (Isentress) 400 Mg Tab 1 TAB ORAL DAILY, #60 Ritonavir (Norvir) 100 Mg Tablet 1 TAB ORAL DAILY, #30 Sevelamer Carbonate (Renvela) 800 Mg Tab 5 TAB ORAL THREE TIMES A DAY, #360 with meals Sevelamer Hcl (Renagel) 800 Mg Tablet 800 MG ORAL THREE TIMES A DAY, #90 TAB 0 Refills Simvastatin (Zocor) 20 Mg Tablet 20 MG ORAL BEDTIME, TAB Warfarin Sod* (Warfarin Sod*) 5 Mg Tablet 9 MG ORAL DAILY, #30 Discharge Condition Upon Discharge: stable Discharge Disposition Patient was discharged to Home () Discharge Diagnoses: Discharge Instructions Discharge Instructions Special Instructions I have been assigned to complete a D/C Summary on this account. I was not involved in the patient management Tami Simmons NP (Vanchtein) Jul 19, 2017 11:44
--- NOTE | 2017-07-20 06:00 | Discharge Summary 2 SIG ---
DATE OF ADMISSION: 07/13/2017 DATE OF DISCHARGE: 07/18/2017 Reason For Admission: 52-year-old male with history of HIV disease, end-stage renal disease ( on hemodialysis), asthma, paroxysmal atrial fibrillation, hypertension, gastroesophageal reflux disease, coronary artery disease, presented with complaint of the low back pain. The patient had dialysis on 07/12/2017 and began to experience watery diarrhea after dialysis. The patient went to bed later on and while trying to get out of the bed to go to the bathroom the patient stuck his low back. He initially was evaluated in [facility] emergency department and then transferred to [facility] for insurance purposes. The patient was admitted for low back pain, rule out lumbar fracture. ADMITTING DIAGNOSES: 1. Low back pain, rule out lumbar fracture. 2. Diarrhea. 3. Dehydration. 4. Human immunodeficiency virus disease. 5. End-stage renal disease, on hemodialysis. 6. Hypertension. 7. Asthma. 8. Paroxysmal atrial fibrillation. 9. Gastroesophageal reflux disease. 10. Coronary artery disease. Hospital Stay: The patient was admitted. ID, GI, Pulmonary, and Nephrology consults were requested. No evidence of current infection. Infectious Disease doctor was consulted for management of HIV. The patient apparently had a good HIV disease control, last CD4 count over 300 and undetectable viral load. ART therapy was continued in the hospital, and the patient to follow up with HIV provider upon discharge. Regional Production Manager had seen and evaluated the patient. Hemodialysis was done as per terminal superintendent. Renal parameters and electrolytes were closely monitored. The patient had few episodes of hyperkalemia, additional Kayexalate was given. The patient is being currently trained for home peritoneal dialysis. Initially MRI of the lumbar spine was done to rule out lumbar fracture, which revealed no acute bony trauma. Mild degenerative changes. Abnormal vertebral body marrow pattern. 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 Pain management provided. Diarrhea stopped, unable to collect stool. The patient with a known history of portal hypertensive gastropathy and also noted to have anemia. Hemoglobin and hematocrit remained at the baseline, no trend down. The patient subsequently undergone EGD on 07/16/2017 with biopsy which revealed esophageal varices grade 1, diffuse gastritis, status post biopsy. No H. pylori, but revealed finding consistent with reactive gastropathy. PPI added to existing medication regimen. EGD also revealed gastric nodule, status post biopsy, which was consistent with a hyperplastic polyp, but no malignancy. During EGD noted inflammatory duodenal fold, status post biopsy. Biopsy revealed no malignancy, no evidence of Giardia, no dysplasia. Respiratory status was stable. Pulse oximetry was stable on room air. No need for pulmonary toilet. DVT prophylaxis provided. Blood pressure was managed with beta-jerica and was stable. Aspirin was continued. The patient has a history of paroxysmal atrial fibrillation. No anticoagulation, only low-dose aspirin. Statin was continued. The patient was stable for discharge home and follow up with the primary medical doctor, terminal superintendent for hemodialysis, and HIV provider. FINAL DIAGNOSES: 1. 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 2. Diarrhea- resolved. 3. Dehydration - resolved. 4. Human immunodeficiency virus disease 5. End-stage renal disease, on hemodialysis. 6. Hypertension. 7. Asthma. 8. Paroxysmal atrial fibrillation. 9. Gastroesophageal reflux disease. 10. Coronary artery disease. 11. Portal hypertensive gastropathy. 12. Status post esophagogastroduodenoscopy. 13. Diffuse gastritis. DISCHARGE MEDICATIONS: See medication reconciliation list. DISCHARGE INSTRUCTIONS: The patient was discharged home. Followup: The patient is to follow up with the primary medical doctor, terminal superintendent, and HIV provider. Nabeel Hoff M.D. I have been assigned to dictate discharge summary on this account and I was not involved in the patient's management. Tami Simmons (Vanchtein) NHerminia ESTEVEZ: ROMERO JOB#: [id number] CC: JASWINDER
== END 2017-07-18 19:21 | disposition home or self-care (01) | DRG 698 ==
LOC: 4W 05:45
PROC: 5A1D60Z (ICD-10-PCS; 2017-07-14)
PROC: 0DB98ZX Excision of Duodenum, Via Natural or Artificial Opening Endoscopic, Diagnostic (ICD-10-PCS; principal; 2017-07-15 08:14)
PROC: 0DB68ZX Excision of Stomach, Via Natural or Artificial Opening Endoscopic, Diagnostic (ICD-10-PCS; principal; 2017-07-15 08:14)
PROC: 0DB78ZX Excision of Stomach, Pylorus, Via Natural or Artificial Opening Endoscopic, Diagnostic (ICD-10-PCS; principal; 2017-07-15 08:14)
DX: N25.0 Renal osteodystrophy (principal); B20 Human immunodeficiency virus [HIV] disease; I12.0 Hypertensive chronic kidney disease with stage 5 chronic kidney disease or end stage renal disease; I85.10 Secondary esophageal varices without bleeding; K76.6 Portal hypertension; D69.6 Thrombocytopenia, unspecified; K86.1 Other chronic pancreatitis; B19.10 Unspecified viral hepatitis B without hepatic coma; I27.2 Other secondary pulmonary hypertension; N18.6 End stage renal disease; E86.0 Dehydration; M54.5 Low back pain; W06.XXXA Fall from bed, initial encounter; I25.10 Atherosclerotic heart disease of native coronary artery without angina pectoris; I73.9 Peripheral vascular disease, unspecified; Z99.2 Dependence on renal dialysis; J45.909 Unspecified asthma, uncomplicated; K21.9 Gastro-esophageal reflux disease without esophagitis; K29.60 Other gastritis without bleeding; Z88.1 Allergy status to other antibiotic agents; Z88.0 Allergy status to penicillin; Y92.003 Bedroom of unspecified non-institutional (private) residence as the place of occurrence of the external cause; I48.0 Paroxysmal atrial fibrillation; K31.89 Other diseases of stomach and duodenum; Z88.8 Allergy status to other drugs, medicaments and biological substances; Z79.01 Long term (current) use of anticoagulants; R10.9 Unspecified abdominal pain; D63.1 Anemia in chronic kidney disease
CPT/HCPCS: 36415; 72148; 76700; 80048; 80053; 80061; 82977; 83036; 83735; 83880; 84100; 84443; 84550; 85007; 85025; 85610; 85730; 86140; 87045; 87081; 87324; 94003; 94150; 94664; J2405

== ENCOUNTER 2018-01-13 01:56 | Inpatient (IN) | payer MEDICARE, MEDICAID ==
[~2018-01-13] VITALS: Ht 190.5 cm; Wt 97.6 kg
[~2018-01-13 01:56] MED LIST changes: +GABAPENTIN300 MG ORAL; +PRAVASTATIN SOD20 M1 ORAL; +RENAGEL800 MG ORAL
[2018-01-13 02:20] VITALS: BP 115/69
[2018-01-13] MEDS ORDERED: Acetaminophen 500mg (ES) tab ORAL ONE (03:30)
--- NOTE | 2018-01-13 04:02 | Emergency Room Report ---
History of Present Illness General Chief Complaint: Pain Source: Patient Present Illness HPI Patient is a 52-year-old male who presented after increased left hand pain as well as left foot pain. Patient stated that he had prior history of vascular injury to his left upper extremity. Patient stated that he had recent surgery for blood clots to his left hand. He had been taking anticoagulation with a factor X inhibitor. Increased rectal bleeding. He denied any fever. He reports having increased the discoloration to his left second toe for approximately 2 days. He reports having recent change in color to his left hand after a blood clot to his forearm.The patient was noted to have prior history of HIV. He reports primary care physician Dr. Hoff Allergies: Coded Allergies: FLUTICASONE (Unverified Allergy, Unknown, 02/23/17) LEVOFLOXACIN (Unverified Allergy, Unknown, 08/22/14) MORPHINE (Unverified Allergy, Unknown, 02/23/17) Uncoded Allergies: nasal spray (Allergy, Unknown, 07/03/15) Nursing Documentation-H Hx Hypertension: Yes - high cholesterol Hx Asthma: Yes Hx Cancer: No Hx Gastrointestinal Problems: Yes Hx Dialysis: Yes - Tues/thurs/sat Hx Neurological Problems: No Hx Seizures: Yes Hx Syncope: Yes Review of Systems All Other Systems: negative except mentioned in HPI Physical Exam Vital Signs Date Time Temp Pulse Resp B/P (MAP) Pulse Ox O2 Delivery O2 Flow Rate FiO2 01/13/18 02:13 98.0 71 14 115/69 98 Room Air 98.1 Sp02 EP Interpretation: reviewed, normal General Appearance: well appearing, alert, GCS 15, Chronically Ill Head: atraumatic ENT: normal ENT inspection, hearing grossly normal, normal voice Neck: normal inspection, full range of motion, supple, no bony tend Respiratory: normal inspection, lungs clear, normal breath sounds, no respiratory distress, no retraction, no wheezing Cardiovascular #1: regular rate, rhythm Gastrointestinal: normal inspection, normal bowel sounds, non tender, soft, no guarding, no hernia Genitourinary: no CVA tenderness Musculoskeletal: other - discoloration and atrophy to left hand digits with some distal dark discoloration Neurologic: normal inspection, alert, oriented x3, responsive, pasteuriser operator III-XII nml as tested, speech normal Psychiatric: normal inspection, judgement/insight normal, mood/affect normal Skin: other - discoloration to left hand digits with some dark discoloration, pulse present to left hand graft, left foot discoloration 2nd toe Medical Decision Making Diagnostic Impression: Primary Impression: Anemia in chronic kidney disease Additional Impression: ESRD on hemodialysis ER Course Patient presented for hand pain. Differential diagnosis included was not limited to osteomyelitis, gangrene, scleroderma, a vascular necrosis among others.Because of complexity of patient's case laboratory testing and imaging studies were ordered. Laboratory testing was ordered due to patient's abnormal appearing fingers as well as his left toe discoloration.The patient was noted to have end-stage renal disease.Laboratory testing was normal for evidence of elevated BUN/ creatinine. Patient was given IV pain medications. Dr. Nabeel Hoff was contacted for inpatient management Labs Test 01/13/18 04:10 White Blood Count 4.0 K/UL (4.8-10.8) Red Blood Count 4.71 M/UL (4.70-6.10) Hemoglobin 12.9 G/DL (14.2-18.0) Hematocrit 41.1 % (42.0-52.0) Mean Corpuscular Volume 87 FL (80-99) Mean Corpuscular Hemoglobin 27.4 PG (27.0-31.0) Mean Corpuscular Hemoglobin Concent 31.4 G/DL (32.0-36.0) Red Cell Distribution Width 18.0 % (11.6-14.8) Platelet Count 112 K/UL (150-450) Mean Platelet Volume 7.6 FL (6.5-10.1) Neutrophils (%) (Auto) 46.4 % (45.0-75.0) Lymphocytes (%) (Auto) 29.1 % (20.0-45.0) Monocytes (%) (Auto) 17.4 % (1.0-10.0) Eosinophils (%) (Auto) 5.5 % (0.0-3.0) Basophils (%) (Auto) 1.6 % (0.0-2.0) Prothrombin Time 10.5 SEC (9.30-11.50) Prothromb Time International Ratio 1.0 (0.9-1.1) Activated Partial Thromboplast Time 30 SEC (23-33) Sodium Level 137 MMOL/L (136-145) Potassium Level 4.3 MMOL/L (3.5-5.1) Chloride Level 100 MMOL/L (98-107) Carbon Dioxide Level 30 MMOL/L (21-32) Anion Gap 7 mmol/L (5-15) Blood Urea Nitrogen 37 mg/dL (7-18) Creatinine 8.1 MG/DL (0.55-1.30) Estimat Glomerular Filtration Rate 8.5 mL/min (>60) Glucose Level 98 MG/DL (74-106) Calcium Level 9.3 MG/DL (8.5-10.1) Total Bilirubin 0.5 MG/DL (0.2-1.0) Aspartate Amino Transf (AST/SGOT) 14 U/L (15-37) Alanine Aminotransferase (ALT/SGPT) 13 U/L (12-78) Alkaline Phosphatase 232 U/L (46-116) Total Protein 8.4 G/DL (6.4-8.2) Albumin 3.4 G/DL (3.4-5.0) Globulin 5.0 g/dL Albumin/Globulin Ratio 0.7 (1.0-2.7) EKG Diagnostic Results Rate: other - afib Rhythm: NSR ST Segments: no acute changes Last Vital Signs Date Time Temp Pulse Resp B/P (MAP) Pulse Ox O2 Delivery O2 Flow Rate FiO2 01/13/18 02:13 98.0 71 14 115/69 98 Room Air 98.1 Status: improved Disposition: ADMITTED INPATIENT Condition: Serious Referrals: Nabeel Hoff MD (PCP) Bernard Shaikh Jan 13, 2018 04:02
[2018-01-13 04:15] LABS: BASOPHILS % (AUTO) 1.6 % (0.0-2.0); EOSINOPHILS % (AUTO) 5.5 % (0.0-3.0); HEMATOCRIT 41.1 % (42.0-52.0); HEMOGLOBIN 12.9 G/DL (14.2-18.0); LYMPHOCYTES % (AUTO) 29.1 % (20.0-45.0); MEAN CORPUSCULAR VOLUME 87 FL (80-99); MONOCYTES % (AUTO) 17.4 % (1.0-10.0); NEUTROPHILS % (AUTO) 46.4 % (45.0-75.0); PLATELET COUNT 112 K/UL (150-450); RED BLOOD COUNT 4.71 M/UL (4.70-6.10)
[2018-01-13 04:23] LABS: ANION GAP 7 mmol/L (5-15); BLOOD UREA NITROGEN 37 mg/dL (7-18); CALCIUM 9.3 MG/DL (8.5-10.1); CARBON DIOXIDE 30 MMOL/L (21-32); CHLORIDE 100 MMOL/L (98-107); CREATININE 8.1 MG/DL (0.55-1.30); POTASSIUM 4.3 MMOL/L (3.5-5.1); SODIUM 137 MMOL/L (136-145)
[2018-01-13 04:28] LABS: ALANINE AMINOTRANSFERASE 13 U/L (12-78); ALBUMIN 3.4 G/DL (3.4-5.0); ALBUMIN/GLOBULIN RATIO 0.7 (1.0-2.7); ALKALINE PHOSPHATASE 232 U/L (46-116); ASPARTATE AMINO TRANSFERASE 14 U/L (15-37); BILIRUBIN,TOTAL 0.5 MG/DL (0.2-1.0)
[2018-01-13 04:30] VITALS: BP 145/84
[2018-01-13] MEDS ORDERED: HYDROmorphone 1mg/ml Carpuject IVP ONE (05:00)
[2018-01-13 06:25] VITALS: BP 131/94
[2018-01-13 08:00] VITALS: BP 136/79
[2018-01-13] MEDS ORDERED: Hydromorphone 0.5mg/0.5ml inj IVP PRN (08:15)
[2018-01-13] MEDS: Aspirin Baby 81mg ORAL SCH (09:41)
[2018-01-13] MEDS: Sensipar 30mg Tab ORAL SCH (09:41)
[2018-01-13] MEDS: HYDROmorphone 1mg/ml Carpuject IVP PRN ×3 (09:50→20:55)
--- NOTE | 2018-01-13 11:56 | Diagnostic Imaging Report ---
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 No acute fractures. No dislocations. No osseous erosions or evidence of osteolytic process. There are vascular calcifications. The joint spaces are preserved. There are small plantar and calcaneal spurs Impression: No acute bony trauma Postsurgical changes, as described No plain radiographic evidence of osteomyelitis. Note, however, that sensitivity of plain films for such is limited. Consider MRI or bone scan for further evaluation if there is high clinical suspicion
--- NOTE | 2018-01-13 11:58 | Diagnostic Imaging Report ---
Indication: Hand pain Technique: 3 views left hand Comparison: none Findings: There is evidence of prior amputation of the terminal tuft of the second distal phalanx. There is somewhat unusual appearance of the terminal cas of the first and third distal phalanges. This is probably developmental or on the basis of chronic erosive changes as the margins appear clean. No acute fractures. No dislocations. The joint spaces are preserved. There are vascular calcifications Impression: No acute bony trauma Postsurgical changes, as described No definite plain radiographic evidence of osteomyelitis. Note, however, limited sensitivity of plain radiographs for such. Consider MRI for further evaluation if there is high clinical suspicion
[2018-01-13 12:00] VITALS: BP 123/65
[2018-01-13] MEDS: DiphenhydrAMINE 50mg/ml Inj IVP PRN ×2 (12:10→20:08)
--- NOTE | 2018-01-13 15:36 | Consultation ---
Consult Note Consult Note asked to eval for dialysis management Patient is a 52-year-old male who presented after increased left hand pain as well as left foot pain. Patient stated that he had prior history of vascular injury to his left upper extremity. Patient stated that he had recent surgery for blood clots to his left hand. He had been taking anticoagulation with a factor X inhibitor. Increased rectal bleeding. He denied any fever. He reports having increased the discoloration to his left second toe for approximately 2 days. He reports having recent change in color to his left hand after a blood clot to his forearm.The patient was noted to have prior history of HIV. He reports primary care physician Dr. Hoff Allergies: Coded Allergies: FLUTICASONE (Unverified Allergy, Unknown, 02/23/17) LEVOFLOXACIN (Unverified Allergy, Unknown, 08/22/14) MORPHINE (Unverified Allergy, Unknown, 02/23/17) Uncoded Allergies: nasal spray (Allergy, Unknown, 07/03/15) Hx Hypertension: Yes - high cholesterol Hx Asthma: Yes Hx Gastrointestinal Problems: Yes Hx Dialysis: Yes - Tues//sat Hx Seizures: Yes Hx Syncope: Yes Assessment/Plan -. Human immunodeficiency virus. -. End-stage renal disease. on HD T..Tue -. Hypertension. -. Asthma. -. Atrial fibrillation. -. Gastroesophageal reflux disease. -. Hypertension. -. Coronary artery disease. -. History of pericardial effusion. -. Peripheral vascular disease. Plan: Arrange for HD Tue-Tue-Tue Per PMD RALEIGH VAZ Jan 13, 2018 15:36
--- NOTE | 2018-01-13 15:47 | Consultation ---
History of Present Illness General Date patient seen: Jan 13, 2018 Chief Complaint: Pain Reason for Consultation: left toe and finger pain Present Illness HPI 52 year old male with multiple medical comorbidities, ESRD on dialysis / , multiple prior fistula and HD cath, prior Hx of DVT, known peripheral vascular insufficiency who presents with pain. States noted some pain in left fingers, left toe, and a shooting nerve pain in left lower extremity. Had had this for sometime now and has had prior episodes similar. Unsure if related to prior episodes and wanted to come in for evaluation. Asking for pain medication to help with pain and nerve pain. No n/v/f/c. Has outside vascular surgeon who helps him with his fistula and HD cath. Of recent has left upper arm AV graft fail and is now receiving HD through right femoral temporary HD cath. Has history of thrombosed right upper arm AV graft. State he is currently under work up and awaiting new fistula vs graft. Also has been on kidney transplant list for some time now. Describes pain as nerve pain in distal finders and toes on the left side. left leg pain a shooting nerve pain. surgery called to evaluate for peripheral pain Allergies: Coded Allergies: FLUTICASONE (Unverified Allergy, Unknown, 02/23/17) LEVOFLOXACIN (Unverified Allergy, Unknown, 08/22/14) MORPHINE (Unverified Allergy, Unknown, 02/23/17) Uncoded Allergies: nasal spray (Allergy, Unknown, 07/03/15) Medication History Scheduled Acyclovir* (Zovirax*), 400 MG ORAL DAILY, (Reported) Aspirin Ec* (Aspirin Ec*), 81 MG ORAL DAILY, (Reported) Atenolol* (Tenormin*), 50 MG ORAL DAILY, (Reported) Cinacalcet Hcl (Sensipar), 60 MG ORAL DAILY, (Reported) Darunavir Ethanolate (Prezista), 800 MG ORAL DAILY, (Reported) Gabapentin* (Gabapentin*), 300 MG ORAL BID, (Reported) Meloxicam* (Meloxicam*), 1 TAB ORAL HS, (Reported) Pravastatin Sod* (Pravastatin Sod*), 40 MG ORAL DAILY, (Reported) Raltegravir (Isentress), 1 TAB ORAL DAILY, (Reported) Ritonavir (Norvir), 1 TAB ORAL DAILY, (Reported) Sevelamer Carbonate (Renvela), 5 TAB ORAL THREE TIMES A DAY, (Reported) Sevelamer Hcl (Renagel), 800 MG ORAL THREE TIMES A DAY, (Reported) Simvastatin (Zocor), 20 MG ORAL BEDTIME, (Reported) Warfarin Sod* (Warfarin Sod*), 9 MG ORAL DAILY, (Reported) Scheduled PRN Acetaminophen (Acetaminophen), 650 MG ORAL Q4HR PRN for Prn Headache/Temp > 101, (Reported) Diphenhydramine HCl (Diphenhydramine HCl), 25 MG IV 3XW PRN for before each dialysis, (Reported) Ondansetron Hcl (Ondansetron Hcl), 1 TAB ORAL PRN PRN for Nausea & Vomiting, ( Reported) Oxycodone Hcl* (Oxycodone Hcl*), 30 MG ORAL Q6H PRN for For Pain, (Reported) Patient History History Provided By: Patient Healthcare decision maker Resuscitation status Advanced Directive on File Past Medical/Surgical History Past Medical/Surgical History: (1) Hypercholesteremia (2) Thrombocytopenia (3) Abdominal pain (4) Opioid dependence (5) Anemia in chronic kidney disease (6) Chest pain (7) Opioid dependence (8) Abdominal pain (9) Opioid dependence (10) Leukopenia (11) Anemia in chronic kidney disease (12) Hyperkalemia (13) Ascites (14) Opioid dependence (15) HTN (hypertension) (16) ACS (acute coronary syndrome) (17) CHF (congestive heart failure) (18) DVT (deep venous thrombosis) (19) Coronary artery disease (20) Chest pain (21) Seizure disorder (22) ESRD (end stage renal disease) (23) Dehydration (24) Hypertension (25) Common bile duct dilatation (26) Pancreatitis, chronic (27) Abdominal pain (28) Asthma (29) Anemia in chronic kidney disease (30) Coronary artery disease (31) Shortness of breath (32) Diarrhea (33) Gastroesophageal reflux (34) Anemia in chronic kidney disease (35) Portal hypertensive gastropathy (36) Atrial fibrillation (37) Lumbar pain (38) Hypertension (39) HIV (human immunodeficiency virus infection) (40) Thrombocytopenia (41) Pancytopenia (42) ESRD on hemodialysis (43) osteomyelitis left 2nd digit (44) osteomyelitis left toe 2nd digit Review of Systems Constitutional: Denies: no symptoms, see HPI, chills, sweats, fever, malaise, weakness, other Eye: Denies: no symptoms, see HPI, eye pain, blurred vision, tearing, double vision, nose pain, nose congestion, acuity changes, discharge, other ENT: Denies: no symptoms, see HPI, ear pain, ear discharge, nose pain, nose congestion, throat pain, throat swelling, mouth pain, hearing loss, nasal discharge, other Respiratory: Denies: no symptoms, see HPI, cough, orthopnea, shortness of breath, stridor, wheezing, LEMUS, sputum, other Cardiovascular: Denies: no symptoms, see HPI, chest pain, edema, palpitations, syncope, PND, other Gastrointestinal: Denies: no symptoms, see HPI, abdominal pain, constipation, diarrhea, nausea, vomiting, melena, hematemesis, other Genitourinary: Denies: no symptoms, see HPI, discharge, dysuria, frequency, hematuria, pain, retention, incontinence, urgency, vag bleed/dc, other Musculoskeletal: Reports: other - peripheral left sided finger and toe discomfort. , Denies: no symptoms, see HPI, back pain, gout, joint pain, joint swelling, muscle pain, muscle stiffness Skin: Denies: no symptoms, see HPI, rash, change in color, change in hair/nails , dryness, lesions, other Psychiatric: Denies: no symptoms, see HPI, prior hx, anxiety, depressed feelings, emotional problems, SI, HI, hallucinations, other Neurological: Reports: tingling Endocrine: Denies: no symptoms, see HPI, excessive sweating, flushing, intolerance to temperature, increased thirst, increased urine, unexplained weight loss, other Hematologic/Lymphatic: Denies: no symptoms, see HPI, anemia, blood clots, easy bleeding, easy bruising, swollen glands, diathesis, other All Other Systems: negative except mentioned in HPI Physical Exam General Appearance: no apparent distress, alert Lines, tubes and drains: other - right groin HD cath HEENT: normocephalic, anicteric, mucous membranes moist Neck: supple Respiratory/Chest: lungs clear, normal breath sounds, no respiratory distress, no accessory muscle use Cardiovascular/Chest: other - deminished peripheral pulses but can palpate faint pulses. good femoral pulses Abdomen: normal bowel sounds, non tender, soft, no organomegaly, no mass Extremities: other - deminished peripheral pulses but can palpate faint pulses. good femoral pulses. bilateral upper arm AV grafts noted. no bruis or thrills or flow noted. left hand fingers and left foot toes noted and with chronic changes from peripheral vasculopathy Skin Exam: warm/dry, cyanotic Neurologic: alert, oriented x 3, responsive Last 24 Hour Vital Signs Date Time Temp Pulse Resp B/P (MAP) Pulse Ox O2 Delivery O2 Flow Rate FiO2 01/13/18 12:00 97.2 64 18 123/65 99 97.2 01/13/18 09:41 63 136/79 01/13/18 08:00 97.4 63 20 136/79 97 97.4 01/13/18 07:15 98.0 104 18 131/94 96 Room Air 98.0 01/13/18 06:25 104 18 131/94 96 Room Air 01/13/18 05:48 98.0 01/13/18 05:18 98.0 01/13/18 04:30 108 19 145/84 99 Room Air 01/13/18 03:30 98.0 01/13/18 02:20 98.1 14 115/69 98 Room Air 98.1 01/13/18 02:13 98.0 71 14 115/69 98 Room Air 98.1 Intake and Output 01/12/18 01/13/18 19:00 07:00 Intake Total 0 ml Balance 0 ml Intake Oral 0 ml Laboratory Tests Test 01/13/18 04:10 White Blood Count 4.0 K/UL (4.8-10.8) L Red Blood Count 4.71 M/UL (4.70-6.10) Hemoglobin 12.9 G/DL (14.2-18.0) L Hematocrit 41.1 % (42.0-52.0) L Mean Corpuscular Volume 87 FL (80-99) Mean Corpuscular Hemoglobin 27.4 PG (27.0-31.0) Mean Corpuscular Hemoglobin Concent 31.4 G/DL (32.0-36.0) L Red Cell Distribution Width 18.0 % (11.6-14.8) H Platelet Count 112 K/UL (150-450) L Mean Platelet Volume 7.6 FL (6.5-10.1) Neutrophils (%) (Auto) 46.4 % (45.0-75.0) Lymphocytes (%) (Auto) 29.1 % (20.0-45.0) Monocytes (%) (Auto) 17.4 % (1.0-10.0) H Eosinophils (%) (Auto) 5.5 % (0.0-3.0) H Basophils (%) (Auto) 1.6 % (0.0-2.0) Prothrombin Time 10.5 SEC (9.30-11.50) Prothromb Time International Ratio 1.0 (0.9-1.1) Activated Partial Thromboplast Time 30 SEC (23-33) Sodium Level 137 MMOL/L (136-145) Potassium Level 4.3 MMOL/L (3.5-5.1) Chloride Level 100 MMOL/L (98-107) Carbon Dioxide Level 30 MMOL/L (21-32) Anion Gap 7 mmol/L (5-15) Blood Urea Nitrogen 37 mg/dL (7-18) H Creatinine 8.1 MG/DL (0.55-1.30) H Estimat Glomerular Filtration Rate 8.5 mL/min (>60) Glucose Level 98 MG/DL (74-106) Calcium Level 9.3 MG/DL (8.5-10.1) Total Bilirubin 0.5 MG/DL (0.2-1.0) Aspartate Amino Transf (AST/SGOT) 14 U/L (15-37) L Alanine Aminotransferase (ALT/SGPT) 13 U/L (12-78) Alkaline Phosphatase 232 U/L (46-116) H Total Protein 8.4 G/DL (6.4-8.2) H Albumin 3.4 G/DL (3.4-5.0) Globulin 5.0 g/dL Albumin/Globulin Ratio 0.7 (1.0-2.7) L Height (Feet): 6 Height (Inches): 3.00 Weight (Pounds): 180 Medications Current Medications Medications (Trade) Dose Ordered Sig/Anum Route PRN Reason Start Time Stop Time Status Last Admin Dose Admin Acetaminophen (Tylenol) 650 mg Q4H PRN ORAL Mild Pain/Temp > 100.5 01/13/18 08:15 02/12/18 08:14 Acyclovir (Zovirax) 800 mg DAILY ORAL 01/13/18 09:00 02/12/18 08:59 UNV Aspirin (ASA) 81 mg DAILY ORAL 01/13/18 09:00 02/12/18 08:59 01/13/18 09:41 Atenolol (Tenormin) 50 mg DAILY ORAL 01/13/18 09:00 02/12/18 08:59 01/13/18 09:41 Cinacalcet (Sensipar) 60 mg DAILY ORAL 01/13/18 09:00 02/12/18 08:59 01/13/18 09:41 Darunavir (Prezista) 800 mg DAILY ORAL 01/13/18 09:00 02/12/18 08:59 UNV Diphenhydramine HCl (Benadryl) 25 mg Q4H PRN IVP Itching 01/13/18 08:15 02/12/18 08:14 01/13/18 12:10 Gabapentin (Neurontin) 300 mg Q12HR ORAL 01/13/18 09:00 02/12/18 08:59 01/13/18 09:41 Hydromorphone HCl (Dilaudid) 0.5 mg Q4H PRN IVP PAIN 1-6 01/13/18 08:15 01/20/18 08:14 Hydromorphone HCl (Dilaudid) 1 mg Q4H PRN IVP Severe Pain (Pain Scale 7-10) 01/13/18 08:15 01/20/18 08:14 01/13/18 09:50 Lidocaine (Lidoderm 5% PATCH) 1 patch DAILY TDERMAL 01/13/18 09:00 02/12/18 08:59 01/13/18 09:42 Pravastatin Sodium (Pravachol) 20 mg BEDTIME ORAL 01/13/18 21:00 02/12/18 20:59 Raltegravir (Isentress) 400 mg DAILY ORAL 01/13/18 09:00 02/12/18 08:59 UNV Sevelamer Carbonate (Renvela) 800 mg THREE TIMES A DAY ORAL 01/13/18 09:00 02/12/18 08:59 01/13/18 13:08 Assessment/Plan Problem List: (1) Peripheral vascular disease Assessment & Plan: 52M with long history of known peripheral vascular disease and vasculopathy. Presents with chronic distal left to and finger pain. has chronic skin changes at toes and fingers. on left hand nails have come off and distal vasculopathy noted. no acute changes. on left foot prior amputation and 2nd toe with chronic changes and ulcer noted. no acute process seen. likely has worsening peripheral vascular disease. no acute intervention needed. no signs of acute infection. needs to follow with his vascular surgeon for angiography. may benefit from angioplasty or interventions if indicated/necessary. ' -no acute surgical intervention necessary -will monitor exam. thank you for this consult. will follow with recs ICD Codes: I73.9 - Peripheral vascular disease, unspecified SNOMED: [id number] Status: stable Hermilo Sainz Jan 13, 2018 15:47
[2018-01-13 16:00] VITALS: BP 103/67
--- NOTE | 2018-01-13 16:20 | Consultation ---
History of Present Illness General Chief Complaint: Pain Reason for Consultation: left toe and finger pain Present Illness Allergies: Coded Allergies: FLUTICASONE (Unverified Allergy, Unknown, 02/23/17) LEVOFLOXACIN (Unverified Allergy, Unknown, 08/22/14) MORPHINE (Unverified Allergy, Unknown, 02/23/17) Uncoded Allergies: nasal spray (Allergy, Unknown, 07/03/15) Medication History Scheduled Acyclovir* (Zovirax*), 400 MG ORAL DAILY, (Reported) Aspirin Ec* (Aspirin Ec*), 81 MG ORAL DAILY, (Reported) Atenolol* (Tenormin*), 50 MG ORAL DAILY, (Reported) Cinacalcet Hcl (Sensipar), 60 MG ORAL DAILY, (Reported) Darunavir Ethanolate (Prezista), 800 MG ORAL DAILY, (Reported) Gabapentin* (Gabapentin*), 300 MG ORAL BID, (Reported) Meloxicam* (Meloxicam*), 1 TAB ORAL HS, (Reported) Pravastatin Sod* (Pravastatin Sod*), 40 MG ORAL DAILY, (Reported) Raltegravir (Isentress), 1 TAB ORAL DAILY, (Reported) Ritonavir (Norvir), 1 TAB ORAL DAILY, (Reported) Sevelamer Carbonate (Renvela), 5 TAB ORAL THREE TIMES A DAY, (Reported) Sevelamer Hcl (Renagel), 800 MG ORAL THREE TIMES A DAY, (Reported) Simvastatin (Zocor), 20 MG ORAL BEDTIME, (Reported) Warfarin Sod* (Warfarin Sod*), 9 MG ORAL DAILY, (Reported) Scheduled PRN Acetaminophen (Acetaminophen), 650 MG ORAL Q4HR PRN for Prn Headache/Temp > 101, (Reported) Diphenhydramine HCl (Diphenhydramine HCl), 25 MG IV 3XW PRN for before each dialysis, (Reported) Ondansetron Hcl (Ondansetron Hcl), 1 TAB ORAL PRN PRN for Nausea & Vomiting, ( Reported) Oxycodone Hcl* (Oxycodone Hcl*), 30 MG ORAL Q6H PRN for For Pain, (Reported) Patient History Healthcare decision maker Resuscitation status Advanced Directive on File Physical Exam Last 24 Hour Vital Signs Date Time Temp Pulse Resp B/P (MAP) Pulse Ox O2 Delivery O2 Flow Rate FiO2 01/13/18 16:00 98.4 64 20 103/67 97 98.4 01/13/18 12:00 97.2 64 18 123/65 99 97.2 01/13/18 09:41 63 136/79 01/13/18 08:00 97.4 63 20 136/79 97 97.4 01/13/18 07:15 98.0 104 18 131/94 96 Room Air 98.0 01/13/18 06:25 104 18 131/94 96 Room Air 01/13/18 05:48 98.0 01/13/18 05:18 98.0 01/13/18 04:30 108 19 145/84 99 Room Air 01/13/18 03:30 98.0 01/13/18 02:20 98.1 14 115/69 98 Room Air 98.1 01/13/18 02:13 98.0 71 14 115/69 98 Room Air 98.1 Intake and Output 01/12/18 01/13/18 19:00 07:00 Intake Total 0 ml Balance 0 ml Intake Oral 0 ml Laboratory Tests Test 01/13/18 04:10 01/13/18 06:00 White Blood Count 4.0 K/UL (4.8-10.8) L Red Blood Count 4.71 M/UL (4.70-6.10) Hemoglobin 12.9 G/DL (14.2-18.0) L Hematocrit 41.1 % (42.0-52.0) L Mean Corpuscular Volume 87 FL (80-99) Mean Corpuscular Hemoglobin 27.4 PG (27.0-31.0) Mean Corpuscular Hemoglobin Concent 31.4 G/DL (32.0-36.0) L Red Cell Distribution Width 18.0 % (11.6-14.8) H Platelet Count 112 K/UL (150-450) L Mean Platelet Volume 7.6 FL (6.5-10.1) Neutrophils (%) (Auto) 46.4 % (45.0-75.0) Lymphocytes (%) (Auto) 29.1 % (20.0-45.0) Monocytes (%) (Auto) 17.4 % (1.0-10.0) H Eosinophils (%) (Auto) 5.5 % (0.0-3.0) H Basophils (%) (Auto) 1.6 % (0.0-2.0) Prothrombin Time 10.5 SEC (9.30-11.50) Prothromb Time International Ratio 1.0 (0.9-1.1) Activated Partial Thromboplast Time 30 SEC (23-33) Sodium Level 137 MMOL/L (136-145) Potassium Level 4.3 MMOL/L (3.5-5.1) Chloride Level 100 MMOL/L (98-107) Carbon Dioxide Level 30 MMOL/L (21-32) Anion Gap 7 mmol/L (5-15) Blood Urea Nitrogen 37 mg/dL (7-18) H Creatinine 8.1 MG/DL (0.55-1.30) H Estimat Glomerular Filtration Rate 8.5 mL/min (>60) Glucose Level 98 MG/DL (74-106) Calcium Level 9.3 MG/DL (8.5-10.1) Total Bilirubin 0.5 MG/DL (0.2-1.0) Aspartate Amino Transf (AST/SGOT) 14 U/L (15-37) L Alanine Aminotransferase (ALT/SGPT) 13 U/L (12-78) Alkaline Phosphatase 232 U/L (46-116) H Total Protein 8.4 G/DL (6.4-8.2) H Albumin 3.4 G/DL (3.4-5.0) Globulin 5.0 g/dL Albumin/Globulin Ratio 0.7 (1.0-2.7) L C-Reactive Protein, Quantitative 1.2 mg/dL (0.00-0.90) H Height (Feet): 6 Height (Inches): 3.00 Weight (Pounds): 180 Medications Current Medications Medications (Trade) Dose Ordered Sig/Anum Route PRN Reason Start Time Stop Time Status Last Admin Dose Admin Acetaminophen (Tylenol) 650 mg Q4H PRN ORAL Mild Pain/Temp > 100.5 01/13/18 08:15 02/12/18 08:14 Acyclovir (Zovirax) 800 mg DAILY ORAL 01/13/18 09:00 02/12/18 08:59 UNV Apixaban (Eliquis) 2.5 mg BID ORAL 01/13/18 18:00 02/12/18 17:59 UNV Aspirin (ASA) 81 mg DAILY ORAL 01/13/18 09:00 02/12/18 08:59 01/13/18 09:41 Atenolol (Tenormin) 50 mg DAILY ORAL 01/13/18 09:00 02/12/18 08:59 01/13/18 09:41 Cinacalcet (Sensipar) 60 mg DAILY ORAL 01/13/18 09:00 02/12/18 08:59 01/13/18 09:41 Darunavir (Prezista) 800 mg DAILY ORAL 01/13/18 09:00 02/12/18 08:59 UNV Diphenhydramine HCl (Benadryl) 25 mg Q4H PRN IVP Itching 01/13/18 08:15 02/12/18 08:14 01/13/18 12:10 Gabapentin (Neurontin) 300 mg Q12HR ORAL 01/13/18 09:00 02/12/18 08:59 01/13/18 09:41 Hydromorphone HCl (Dilaudid) 0.5 mg Q4H PRN IVP PAIN 1-6 01/13/18 08:15 01/20/18 08:14 Hydromorphone HCl (Dilaudid) 1 mg Q4H PRN IVP Severe Pain (Pain Scale 7-10) 01/13/18 08:15 01/20/18 08:14 01/13/18 09:50 Lidocaine (Lidoderm 5% PATCH) 1 patch DAILY TDERMAL 01/13/18 09:00 02/12/18 08:59 01/13/18 09:42 Pravastatin Sodium (Pravachol) 20 mg BEDTIME ORAL 01/13/18 21:00 02/12/18 20:59 Raltegravir (Isentress) 400 mg DAILY ORAL 01/13/18 09:00 02/12/18 08:59 UNV Sevelamer Carbonate (Renvela) 800 mg THREE TIMES A DAY ORAL 01/13/18 09:00 02/12/18 08:59 01/13/18 13:08 Srinivasan Patterson MD Jan 13, 2018 16:20
--- NOTE | 2018-01-13 16:25 | History & Physical ---
History and Physical History & Physicial Job: [id number] Nabeel Hoff MD Jan 13, 2018 16:25
--- NOTE | 2018-01-13 17:49 | Consultation ---
History of Present Illness General Date patient seen: Jan 13, 2018 Time patient seen: 17:34 Chief Complaint: Pain Reason for Consultation: left toe and finger pain Present Illness HPI 52 y/o M with hx of HLD, asthma, HTN, GERD, CAD, PVD, hx pericardial effusion, ESRD on HD TTSat w/ thrombose R upper arm AV graft, on kidney transplant list, Seizure disorder, syncope,HIV on Darnuvar, Raltegravir and Norvir presents to ED on 01/13 with increased left hand and L foot pain. Hx of prior vascular injury to LUE and had recent surgery for blood clots of his left hand (failed AV graft; now receiving HD through R femoral Temp HD cath). On anticoagulation with a factor X inhibitor. Reported increased rectal bleeding. Noted increased discoloration of his 2nd left toe for the last 2 days. ALso recent change in color of his L hand after blood clot. Denies fever, n/v/d Allergies: Coded Allergies: FLUTICASONE (Unverified Allergy, Unknown, 02/23/17) LEVOFLOXACIN (Unverified Allergy, Unknown, 08/22/14) MORPHINE (Unverified Allergy, Unknown, 02/23/17) Uncoded Allergies: nasal spray (Allergy, Unknown, 07/03/15) Medication History Scheduled Acyclovir* (Zovirax*), 400 MG ORAL DAILY, (Reported) Aspirin Ec* (Aspirin Ec*), 81 MG ORAL DAILY, (Reported) Atenolol* (Tenormin*), 50 MG ORAL DAILY, (Reported) Cinacalcet Hcl (Sensipar), 60 MG ORAL DAILY, (Reported) Darunavir Ethanolate (Prezista), 800 MG ORAL DAILY, (Reported) Gabapentin* (Gabapentin*), 300 MG ORAL BID, (Reported) Meloxicam* (Meloxicam*), 1 TAB ORAL HS, (Reported) Pravastatin Sod* (Pravastatin Sod*), 40 MG ORAL DAILY, (Reported) Raltegravir (Isentress), 1 TAB ORAL DAILY, (Reported) Ritonavir (Norvir), 1 TAB ORAL DAILY, (Reported) Sevelamer Carbonate (Renvela), 5 TAB ORAL THREE TIMES A DAY, (Reported) Sevelamer Hcl (Renagel), 800 MG ORAL THREE TIMES A DAY, (Reported) Simvastatin (Zocor), 20 MG ORAL BEDTIME, (Reported) Warfarin Sod* (Warfarin Sod*), 9 MG ORAL DAILY, (Reported) Scheduled PRN Acetaminophen (Acetaminophen), 650 MG ORAL Q4HR PRN for Prn Headache/Temp > 101, (Reported) Diphenhydramine HCl (Diphenhydramine HCl), 25 MG IV 3XW PRN for before each dialysis, (Reported) Ondansetron Hcl (Ondansetron Hcl), 1 TAB ORAL PRN PRN for Nausea & Vomiting, ( Reported) Oxycodone Hcl* (Oxycodone Hcl*), 30 MG ORAL Q6H PRN for For Pain, (Reported) Patient History Healthcare decision maker Resuscitation status Advanced Directive on File Review of Systems All Other Systems: negative except mentioned in HPI Physical Exam Physical Exam Narrative General Appearance: well appearing, alert, Chronically Ill Head: atraumatic ENT: normal ENT inspection, hearing grossly normal, normal voice Neck: normal inspection, full range of motion, supple, no bony tend Respiratory: normal inspection, lungs clear, normal breath sounds, no respiratory distress, no retraction, no wheezing Cardiovascular : regular rate, rhythm Gastrointestinal: normal inspection, normal bowel sounds, non tender, soft, no guarding, no hernia Genitourinary: no CVA tenderness Musculoskeletal: other - discoloration and atrophy to left hand digits with some distal dark discoloration Neurologic: normal inspection, alert, oriented x3, responsive Skin: other - discoloration to left hand digits with some dark discoloration, pulse present to left hand graft, left foot discoloration 2nd toe Last 24 Hour Vital Signs Date Time Temp Pulse Resp B/P (MAP) Pulse Ox O2 Delivery O2 Flow Rate FiO2 01/13/18 16:00 98.4 64 20 103/67 97 98.4 01/13/18 12:00 97.2 64 18 123/65 99 97.2 01/13/18 09:41 63 136/79 01/13/18 08:00 97.4 63 20 136/79 97 97.4 01/13/18 07:15 98.0 104 18 131/94 96 Room Air 98.0 01/13/18 06:25 104 18 131/94 96 Room Air 01/13/18 05:48 98.0 01/13/18 05:18 98.0 01/13/18 04:30 108 19 145/84 99 Room Air 01/13/18 03:30 98.0 01/13/18 02:20 98.1 14 115/69 98 Room Air 98.1 01/13/18 02:13 98.0 71 14 115/69 98 Room Air 98.1 Intake and Output 01/12/18 01/13/18 19:00 07:00 Intake Total 0 ml Balance 0 ml Intake Oral 0 ml Laboratory Tests Test 01/13/18 04:10 01/13/18 06:00 White Blood Count 4.0 K/UL (4.8-10.8) L Red Blood Count 4.71 M/UL (4.70-6.10) Hemoglobin 12.9 G/DL (14.2-18.0) L Hematocrit 41.1 % (42.0-52.0) L Mean Corpuscular Volume 87 FL (80-99) Mean Corpuscular Hemoglobin 27.4 PG (27.0-31.0) Mean Corpuscular Hemoglobin Concent 31.4 G/DL (32.0-36.0) L Red Cell Distribution Width 18.0 % (11.6-14.8) H Platelet Count 112 K/UL (150-450) L Mean Platelet Volume 7.6 FL (6.5-10.1) Neutrophils (%) (Auto) 46.4 % (45.0-75.0) Lymphocytes (%) (Auto) 29.1 % (20.0-45.0) Monocytes (%) (Auto) 17.4 % (1.0-10.0) H Eosinophils (%) (Auto) 5.5 % (0.0-3.0) H Basophils (%) (Auto) 1.6 % (0.0-2.0) Prothrombin Time 10.5 SEC (9.30-11.50) Prothromb Time International Ratio 1.0 (0.9-1.1) Activated Partial Thromboplast Time 30 SEC (23-33) Sodium Level 137 MMOL/L (136-145) Potassium Level 4.3 MMOL/L (3.5-5.1) Chloride Level 100 MMOL/L (98-107) Carbon Dioxide Level 30 MMOL/L (21-32) Anion Gap 7 mmol/L (5-15) Blood Urea Nitrogen 37 mg/dL (7-18) H Creatinine 8.1 MG/DL (0.55-1.30) H Estimat Glomerular Filtration Rate 8.5 mL/min (>60) Glucose Level 98 MG/DL (74-106) Calcium Level 9.3 MG/DL (8.5-10.1) Total Bilirubin 0.5 MG/DL (0.2-1.0) Aspartate Amino Transf (AST/SGOT) 14 U/L (15-37) L Alanine Aminotransferase (ALT/SGPT) 13 U/L (12-78) Alkaline Phosphatase 232 U/L (46-116) H Total Protein 8.4 G/DL (6.4-8.2) H Albumin 3.4 G/DL (3.4-5.0) Globulin 5.0 g/dL Albumin/Globulin Ratio 0.7 (1.0-2.7) L C-Reactive Protein, Quantitative 1.2 mg/dL (0.00-0.90) H Height (Feet): 6 Height (Inches): 3.00 Weight (Pounds): 180 Medications Current Medications Medications (Trade) Dose Ordered Sig/Anum Route PRN Reason Start Time Stop Time Status Last Admin Dose Admin Acetaminophen (Tylenol) 650 mg Q4H PRN ORAL Mild Pain/Temp > 100.5 01/13/18 08:15 02/12/18 08:14 Acyclovir (Zovirax) 800 mg DAILY ORAL 01/13/18 09:00 02/12/18 08:59 UNV Apixaban (Eliquis) 2.5 mg Q12HR ORAL 01/13/18 21:00 02/12/18 20:59 Aspirin (ASA) 81 mg DAILY ORAL 01/13/18 09:00 02/12/18 08:59 01/13/18 09:41 Atenolol (Tenormin) 50 mg DAILY ORAL 01/13/18 09:00 02/12/18 08:59 01/13/18 09:41 Cinacalcet (Sensipar) 60 mg DAILY ORAL 01/13/18 09:00 02/12/18 08:59 01/13/18 09:41 Darunavir (Prezista) 800 mg DAILY ORAL 01/13/18 09:00 02/12/18 08:59 UNV Diphenhydramine HCl (Benadryl) 25 mg Q4H PRN IVP Itching 01/13/18 08:15 02/12/18 08:14 01/13/18 12:10 Gabapentin (Neurontin) 300 mg Q12HR ORAL 01/13/18 09:00 02/12/18 08:59 01/13/18 09:41 Hydromorphone HCl (Dilaudid) 0.5 mg Q4H PRN IVP PAIN 1-6 01/13/18 08:15 01/20/18 08:14 Hydromorphone HCl (Dilaudid) 1 mg Q4H PRN IVP Severe Pain (Pain Scale 7-10) 01/13/18 08:15 01/20/18 08:14 01/13/18 16:26 Lidocaine (Lidoderm 5% PATCH) 1 patch DAILY TDERMAL 01/13/18 09:00 02/12/18 08:59 01/13/18 09:42 Pravastatin Sodium (Pravachol) 20 mg BEDTIME ORAL 01/13/18 21:00 02/12/18 20:59 Raltegravir (Isentress) 400 mg DAILY ORAL 01/13/18 09:00 02/12/18 08:59 UNV Sevelamer Carbonate (Renvela) 800 mg THREE TIMES A DAY ORAL 01/13/18 09:00 02/12/18 08:59 01/13/18 13:08 Assessment/Plan Assessment/Plan Abx: Assessment: PVD s/p L 3rd and 4th toe amputation Acute on Chronic L hand pain L foot pain, chronic 2nd tip toe ulcer with callous -L hand: No acute bony trauma. Postsurgical changes, as described. No definite plain radiographic evidence of osteomyelitis. -L foot: No acute bony trauma. Postsurgical changes.No plain radiographic evidence of osteomyelitis. -no infectious process at present Afebrile, no leukocytosis -mild leukopenia probably due to HIV HIV -?CD4, VL HLD, asthma, HTN, GERD, CAD, PVD, hx pericardial effusion, ESRD on HD TTSat w/ thrombose R upper arm AV graft, on kidney transplant list, Seizure disorder, syncope Plan: -Continue ARV : Darunavir, Dolutegravir and Ritonavir -Continue maitanance acyclovir -HIV, CD4 -Vascular surg eval -wound care -f/u cx -Monitor CBC/BMP, temperatures Thank you for this consultation. Will continue to follow along with you. Discussed with JEFRY. Sari Duncan M.D. Jan 13, 2018 17:49
[2018-01-13] MEDS ORDERED: Ritonavir 100mg tab ORAL SCH (20:00)
[2018-01-13] MEDS ORDERED: Isentress 400mg tab ORAL SCH (20:00)
[2018-01-13] MEDS: Eliquis 2.5mg tablet ORAL SCH (20:08)
--- NOTE | 2018-01-13 23:45 | History and Physical Report ---
DATE OF ADMISSION: 01/12/2018 CHIEF COMPLAINT: Left foot second toe tenderness as well as edema. HISTORY OF PRESENT ILLNESS: This is a 52-year-old gentleman with past medical history significant for HIV diagnosed in 1995 with viral load undetectable and CD4 counts of 300, history of end-stage renal disease, on hemodialysis Tuesday and and Tuesday at [facility], history of hypertension, atrial fibrillation, asthma, GERD, pericardial effusion, coronary artery disease, peripheral vascular disease, cholecystectomy, right neck mass excision in 2010, and history of multiple AV shunt placement as well as VATS procedure for empyema in 2010, who was presented to the hospital complaining about severe left foot swelling, tender to touch, and painful on the second toe. Shortly after initial evaluation in the emergency room, the patient was admitted to the hospital with possible osteomyelitis of the second toe. The patient has been following up with vascular physician as an outpatient and had recent blood clots to his left hand and has been on anticoagulation with Eliquis and increased rectal bleeding. Denies any fever or chills. Denies any dysuria or frequency. Denies any hematuria or hematochezia. Shortly after initial evaluation in the emergency room, the patient was admitted to the hospital with left foot second toe infection, possible osteomyelitis. PAST MEDICAL HISTORY/PAST SURGICAL HISTORY: As above. History of end-stage renal disease, on hemodialysis, anemia of chronic disease, HIV diagnosed in 1995, hypertension, chronic atrial fibrillation, asthma, GERD, pericardial effusion, coronary artery disease, peripheral vascular disease, cholecystectomy in 2005, right neck mass excision in 2010, VATS procedure for empyema in 2010, and AV fistula placement in the left arm as well as right. MEDICATIONS AT HOME: Significant for Neurontin 300 mg twice a day, oxycodone 20 mg four times a day, pravastatin 40 mg daily, Sensipar 60 mg daily, aspirin 81 mg daily, acyclovir 400 mg daily, Bactrim DS one tablet Tuesday and Tuesday and Tuesday, Prezista 400 mg daily, Norvir 100 mg daily, Isentress 400 mg b.i.d., Renagel 800 mg three times a day, Prilosec 40 mg daily, atenolol 50 mg daily as well as Eliquis 2.5 mg p.o. b.i.d. ALLERGIES: Levaquin and Flonase. The patient is noted to have history of morphine, however, the patient stated that he tolerated morphine and Dilaudid in the past. SOCIAL HISTORY: The patient is single and disabled. No smoking, alcohol, or drugs. FAMILY HISTORY: Noncontributory. REVIEW OF SYSTEMS: Mostly as above. Denies any dysuria or frequency. Denies any hematuria or hematochezia. Denies any bright red blood per rectum. Denies any loss of consciousness. Complained about left foot edema. Denies any fever or chills. Denies any fall. Denies any head trauma. Complained about generalized body ache and weakness. PHYSICAL EXAMINATION: VITAL SIGNS: On admission, temperature 98.0, pulse of 71, respirations 14, and blood pressure 115/69. GENERAL: The patient is awake, responsive, and in no acute distress. HEAD AND NECK: Pupils are reactive to light. Extraocular movements intact. Neck was supple. No JVD. LUNGS: Good air entry. No wheezing or rales. HEART: S1 and S2. Regular rhythm. No gallops. ABDOMEN: Soft, nondistended, and nontender. Positive bowel sounds. SKIN: The right femoral area has dialysis access. EXTREMITIES: No cyanosis, clubbing, or edema. Left foot second toe is tender to touch, mild edema. There is chronic ulceration on the dorsum of the foot. The patient has amputation of third and fourth . No sign of infection at the site of amputation, well healed. Right lower extremity has no cyanosis, clubbing, or edema. NEUROLOGIC: Cranial nerves II through XII are grossly intact. Motor strength is 5/5 in all the extremities. LABORATORY DATA: Laboratory on admission from the ER is significant for WBC of 4.0, hemoglobin of 12, hematocrit of 41, and platelets is 112,000. Sodium 137, potassium 4.2, chloride 100, bicarbonate 30, BUN 37, creatinine 8.1, GFR is 8.5, glucose is 98. AST of 14, ALT of 13, and alkaline phosphatase of 232. CRP is 1.2. Total protein is 8.4. PT of 10, INR 1.0, and PTT of 30. The patient had x-ray of the hand, no acute bony trauma, postsurgical changes were noted, no definite radiographic evidence of osteomyelitis. X-ray of the left foot shows no acute bony trauma, postsurgical changes, no plain radiographic evidence of osteomyelitis. ASSESSMENT: 1. Left spin tank tender and swollen at the site of the second toe, possible cellulitis, however, cannot rule out underlying osteomyelitis. 2. HIV. 3. End-stage renal disease, on hemodialysis Tuesday, , and Tuesday. 4. Hypertension. 5. History of atrial fibrillation. 6. Asthma. 7. GERD. 8. History of pericardial effusion. 9. Coronary artery disease. 10. Severe peripheral vascular disease. PLAN: Admit the patient to Med/Surg. We will follow up with Dr. Sidhu from Infectious Disease, Dr. Thomas from Nephrology for dialysis, Dr. Patterson from Pulmonary/Critical Care, and Dr. Crane from Podiatry. Resume home medication. We will hold off on antibiotic therapy at this time. We will follow up with Podiatry recommendation. Code status, Full Code. DVT prophylaxis, Eliquis. Nabeel Hoff M.D. DR: KIRTI JOB#: [id number] CC:
[2018-01-14] MEDS: HYDROmorphone 1mg/ml Carpuject IVP PRN ×4 (02:30→20:44)
[2018-01-14] MEDS: DiphenhydrAMINE 50mg/ml Inj IVP PRN ×3 (04:09→17:36)
[2018-01-14 04:35] VITALS: BP 109/72
[2018-01-14 07:25] LABS: HEMATOCRIT 41.5 % (42.0-52.0); MEAN CORPUSCULAR VOLUME 89 FL (80-99); PLATELET COUNT 112 K/UL (150-450); RED BLOOD COUNT 4.65 M/UL (4.70-6.10); RED CELL DISTRIBUTION WIDTH 18.5 % (11.6-14.8); WHITE BLOOD COUNT 3.4 K/UL (4.8-10.8)
[2018-01-14 08:03] LABS: ALANINE AMINOTRANSFERASE 13 U/L (12-78); ALBUMIN 3.4 G/DL (3.4-5.0); ALBUMIN/GLOBULIN RATIO 0.7 (1.0-2.7); ALKALINE PHOSPHATASE 200 U/L (46-116); ANION GAP 14 mmol/L (5-15); ASPARTATE AMINO TRANSFERASE 20 U/L (15-37); BILIRUBIN,TOTAL 0.5 MG/DL (0.2-1.0); BLOOD UREA NITROGEN 58 mg/dL (7-18); CALCIUM 8.7 MG/DL (8.5-10.1); CARBON DIOXIDE 24 MMOL/L (21-32); CHLORIDE 97 MMOL/L (98-107); CHOLESTEROL 158 MG/DL (< 200); CREATINE KINASE 65 U/L (26-308); CREATININE 10.4 MG/DL (0.55-1.30); GAMMA GLUTAMYL TRANSPEPTIDASE 40 U/L (5-85); HDL CHOLESTEROL 77 MG/DL (40-60); PHOSPHORUS 7.3 MG/DL (2.5-4.9); POTASSIUM 4.8 MMOL/L (3.5-5.1); SODIUM 135 MMOL/L (136-145); TRIGLYCERIDES 96 MG/DL (30-150)
--- NOTE | 2018-01-14 08:29 | Consultation ---
Consult Note Assessment/Plan A/ 1) Osteo of left 2nd toe ? 2) Nonpressure ulcer left 2nd toe 3) PAD - noted on x-ray, vascular calcifications 4) ESRD 5) Healed amps of right 4th toe, left 3rd toe, left 4th toe 6) HIV P/ 1) Chart review performed of [facility] and [facility] chart 2) Will order MRI left foot to evaluate for osteo due to chronic nature of wound 3) PAD noted on x-ray, although no arterial studies noted. Patient is under the care of Dr Lancaster, Vascular surgery at [facility]. 4) Abx per ID, Dr Sidhu has been contacted. 5) Cont wound care as ordered 6) Will follow Thank you Antoni Pimentel DPM Jan 14, 2018 08:29
[2018-01-14 08:35] VITALS: BP 113/62
[2018-01-14] MEDS: Sensipar 30mg Tab ORAL SCH (09:00)
[2018-01-14] MEDS: Eliquis 2.5mg tablet ORAL SCH ×2 (09:00→20:38)
[2018-01-14] MEDS: Aspirin Baby 81mg ORAL SCH (09:00)
[2018-01-14 12:00] VITALS: BP 115/67
[2018-01-14] MEDS ORDERED: Isentress 400mg tab ORAL SCH (12:00)
--- NOTE | 2018-01-14 12:25 | General Surgery Progress Note ---
General Surgery-Progress Note Subjective Symptoms: improved Additional Comments doing well. states left hand and foot pain improved. shooting nerve pain improved. overall better today Objective Last 24 Hour Vital Signs Date Time Temp Pulse Resp B/P (MAP) Pulse Ox O2 Delivery O2 Flow Rate FiO2 01/14/18 12:00 98.1 82 20 115/67 97 98.1 01/14/18 11:45 Room Air 01/14/18 09:01 97.0 01/14/18 08:35 97.0 55 20 113/62 100 97.0 01/14/18 08:31 97.7 01/14/18 08:10 Room Air 01/14/18 04:35 97.7 77 20 109/72 96 Room Air 97.7 01/13/18 16:00 98.4 64 20 103/67 97 98.4 I&O Intake and Output 01/13/18 01/14/18 19:00 07:00 Intake Total 460 ml Output Total 300 ml Balance 460 ml -300 ml Intake Oral 460 ml Output Urine Total 300 ml # Bowel Movements 4 Wound: clean Drains: none Cardiovascular: RSR Respiratory: clear Abdomen: soft, flat, non-tender, present bowel sounds Extremities: cyanosis, other - peripheral vascular disease with chronic changes to distal extremities. Laboratory Tests Test 01/14/18 05:45 White Blood Count Pending Red Blood Count 4.65 M/UL (4.70-6.10) L Hemoglobin 13.0 G/DL (14.2-18.0) L Hematocrit 41.5 % (42.0-52.0) L Mean Corpuscular Volume 89 FL (80-99) Mean Corpuscular Hemoglobin 28.0 PG (27.0-31.0) Mean Corpuscular Hemoglobin Concent 31.4 G/DL (32.0-36.0) L Red Cell Distribution Width 18.5 % (11.6-14.8) H Platelet Count 112 K/UL (150-450) L Mean Platelet Volume 7.6 FL (6.5-10.1) Neutrophils (%) (Auto) % (45.0-75.0) Lymphocytes (%) (Auto) % (20.0-45.0) Monocytes (%) (Auto) % (1.0-10.0) Eosinophils (%) (Auto) % (0.0-3.0) Basophils (%) (Auto) % (0.0-2.0) Differential Total Cells Counted 100 Neutrophils % (Manual) 47 % (45-75) Lymphocytes % (Manual) 38 % (20-45) Monocytes % (Manual) 11 % (1-10) H Eosinophils % (Manual) 4 % (0-3) H Basophils % (Manual) 0 % (0-2) Band Neutrophils 0 % (0-8) Lymphocytes Pending Platelet Estimate Decreased L Platelet Morphology Normal Hypochromasia 1+ Anisocytosis 1+ Sodium Level 135 MMOL/L (136-145) L Potassium Level 4.8 MMOL/L (3.5-5.1) Chloride Level 97 MMOL/L (98-107) L Carbon Dioxide Level 24 MMOL/L (21-32) Anion Gap 14 mmol/L (5-15) Blood Urea Nitrogen 58 mg/dL (7-18) H Creatinine 10.4 MG/DL (0.55-1.30) H Estimat Glomerular Filtration Rate 6.3 mL/min (>60) Glucose Level 73 MG/DL (74-106) L Hemoglobin A1c 5.7 % (4.3-6.0) Uric Acid 5.8 MG/DL (2.6-7.2) Calcium Level 8.7 MG/DL (8.5-10.1) Phosphorus Level 7.3 MG/DL (2.5-4.9) H Magnesium Level 2.1 MG/DL (1.8-2.4) Total Bilirubin 0.5 MG/DL (0.2-1.0) Gamma Glutamyl Transpeptidase 40 U/L (5-85) Aspartate Amino Transf (AST/SGOT) 20 U/L (15-37) Alanine Aminotransferase (ALT/SGPT) 13 U/L (12-78) Alkaline Phosphatase 200 U/L (46-116) H Total Creatine Kinase 65 U/L (26-308) Pro-B-Type Natriuretic Peptide 7513 pg/mL (0-125) H Total Protein 8.2 G/DL (6.4-8.2) Albumin 3.4 G/DL (3.4-5.0) Globulin 4.8 g/dL Albumin/Globulin Ratio 0.7 (1.0-2.7) L Triglycerides Level 96 MG/DL (30-150) Cholesterol Level 158 MG/DL (< 200) LDL Cholesterol 71 mg/dL (<100) HDL Cholesterol 77 MG/DL (40-60) H Cholesterol/HDL Ratio 2.1 (3.3-4.4) L Vitamin B12 Level 445 PG/ML (193-986) Thyroid Stimulating Hormone (TSH) 1.376 uiU/mL (0.358-3.740) Percent CD3 Cells Pending Absolute CD3 Count Pending Percent CD4 Cells Pending Absolute CD4 Count Pending T-Lymphocyte CD4/CD8 Ratio Pending Percent CD8 Cells Pending Absolute CD8 Count Pending HIV-1 RNA (PCR) log10 Value Pending HIV-1 RNA Ultraquantitative (PCR) Pending Plan Problems: (1) Peripheral vascular disease Assessment & Plan: 52M with long history of known peripheral vascular disease and vasculopathy. Presents with chronic distal left to and finger pain. has chronic skin changes at toes and fingers. on left hand nails have come off and distal vasculopathy noted. no acute changes. on left foot prior amputation and 2nd toe with chronic changes and ulcer noted. no acute process seen. likely has worsening peripheral vascular disease. no acute intervention needed. no signs of acute infection. needs to follow with his vascular surgeon for angiography. may benefit from angioplasty or interventions if indicated/necessary. -pending MRI to evaluate for distal foot osteo at second toe. -no acute surgical intervention necessary -will monitor exam. thank you for this consult. will follow with Hermilo Thompson Jan 14, 2018 12:25
--- NOTE | 2018-01-14 13:09 | Nephrology Progress Note ---
Assessment/Plan Problem List: (1) ESRD on hemodialysis Assessment -. Human immunodeficiency virus. -. End-stage renal disease. on HD . -. Hypertension. -. Asthma. -. Atrial fibrillation. -. Gastroesophageal reflux disease. -. Hypertension. -. Coronary artery disease. -. History of pericardial effusion. -. Peripheral vascular disease. Plan Plan: Arrange for HD Per PMD Subjective ROS Limited/Unobtainable: No Constitutional: Reports: malaise Objective Objective Last 24 Hour Vital Signs Date Time Temp Pulse Resp B/P (MAP) Pulse Ox O2 Delivery O2 Flow Rate FiO2 01/14/18 12:00 98.1 82 20 115/67 97 98.1 01/14/18 11:45 Room Air 01/14/18 09:01 97.0 01/14/18 08:35 97.0 55 20 113/62 100 97.0 01/14/18 08:31 97.7 01/14/18 08:10 Room Air 01/14/18 04:35 97.7 77 20 109/72 96 Room Air 97.7 01/13/18 16:00 98.4 64 20 103/67 97 98.4 Intake and Output 01/13/18 01/14/18 19:00 07:00 Intake Total 460 ml Output Total 300 ml Balance 460 ml -300 ml Intake Oral 460 ml Output Urine Total 300 ml # Bowel Movements 4 Laboratory Tests 01/14/18 05:45: White Blood Count [Pending], Red Blood Count 4.65L, Hemoglobin 13.0L, Hematocrit 41.5L, Mean Corpuscular Volume 89, Mean Corpuscular Hemoglobin 28.0, Mean Corpuscular Hemoglobin Concent 31.4L, Red Cell Distribution Width 18.5H, Platelet Count 112L, Mean Platelet Volume 7.6, Neutrophils (%) (Auto) , Lymphocytes (%) (Auto) , Monocytes (%) (Auto) , Eosinophils (%) (Auto) , Basophils (%) (Auto) , Differential Total Cells Counted 100, Neutrophils % ( Manual) 47, Lymphocytes % (Manual) 38, Monocytes % (Manual) 11H, Eosinophils % ( Manual) 4H, Basophils % (Manual) 0, Band Neutrophils 0, Lymphocytes [Pending], Platelet Estimate DecreasedL, Platelet Morphology Normal, Hypochromasia 1+, Anisocytosis 1+, Sodium Level 135L, Potassium Level 4.8, Chloride Level 97L, Carbon Dioxide Level 24, Anion Gap 14, Blood Urea Nitrogen 58H, Creatinine 10.4H , Estimat Glomerular Filtration Rate 6.3, Glucose Level 73L, Hemoglobin A1c 5.7 , Uric Acid 5.8, Calcium Level 8.7, Phosphorus Level 7.3H, Magnesium Level 2.1, Total Bilirubin 0.5, Gamma Glutamyl Transpeptidase 40, Aspartate Amino Transf ( AST/SGOT) 20, Alanine Aminotransferase (ALT/SGPT) 13, Alkaline Phosphatase 200H , Total Creatine Kinase 65, Pro-B-Type Natriuretic Peptide 7513H, Total Protein 8.2, Albumin 3.4, Globulin 4.8, Albumin/Globulin Ratio 0.7L, Triglycerides Level 96, Cholesterol Level 158, LDL Cholesterol 71, HDL Cholesterol 77H, Cholesterol/HDL Ratio 2.1L, Vitamin B12 Level 445, Thyroid Stimulating Hormone ( TSH) 1.376, Percent CD3 Cells [Pending], Absolute CD3 Count [Pending], Percent CD4 Cells [Pending], Absolute CD4 Count [Pending], T-Lymphocyte CD4/CD8 Ratio [ Pending], Percent CD8 Cells [Pending], Absolute CD8 Count [Pending], HIV-1 RNA ( PCR) log10 Value [Pending], HIV-1 RNA Ultraquantitative (PCR) [Pending] Height (Feet): 6 Height (Inches): 3.00 Weight (Pounds): 180 General Appearance: no apparent distress Extremities: other - no change RALEIGH VAZ Jan 14, 2018 13:09
[2018-01-14 15:45] VITALS: BP 115/74
--- NOTE | 2018-01-14 17:12 | Pulmonology Progress Note ---
Assessment/Plan Problems: (1) CHF (congestive heart failure) (2) Asthma (3) ESRD on hemodialysis (4) Opioid dependence (5) Hypertension (6) Anemia in chronic kidney disease (7) Peripheral vascular disease (8) HIV (human immunodeficiency virus infection) Assessment/Plan HD by nephrology f/u cxr HIV w/u in progress Dr. Garza called for podiatry f/u ID recommendations Subjective ROS Limited/Unobtainable: No Constitutional: Reports: no symptoms HEENT: Repors: no symptoms Allergies: Coded Allergies: FLUTICASONE (Unverified Allergy, Unknown, 02/23/17) LEVOFLOXACIN (Unverified Allergy, Unknown, 08/22/14) MORPHINE (Unverified Allergy, Unknown, 02/23/17) Uncoded Allergies: nasal spray (Allergy, Unknown, 07/03/15) Objective Last 24 Hour Vital Signs Date Time Temp Pulse Resp B/P (MAP) Pulse Ox O2 Delivery O2 Flow Rate FiO2 01/14/18 15:45 97.7 58 20 115/74 99 97.7 01/14/18 14:13 98.1 01/14/18 13:43 98.1 01/14/18 13:32 82 115/67 01/14/18 12:00 98.1 82 20 115/67 97 98.1 01/14/18 11:45 Room Air 01/14/18 08:35 97.0 55 20 113/62 100 97.0 01/14/18 08:31 97.7 01/14/18 08:10 Room Air 01/14/18 04:35 97.7 77 20 109/72 96 Room Air 97.7 Intake and Output 01/13/18 01/14/18 19:00 07:00 Intake Total 460 ml Output Total 300 ml Balance 460 ml -300 ml Intake Oral 460 ml Output Urine Total 300 ml # Bowel Movements 4 Objective General Appearance: WD/WN, no apparent distress Lines, tubes and drains: peripheral HEENT: normocephalic, anicteric Neck: non-tender, normal alignment Respiratory/Chest: chest wall non-tender, clear Cardiovascular/Chest: normal peripheral pulses Abdomen: normal bowel sounds EXt: no C/C/E Microbiology Date/Time Source Procedure Growth Status 01/13/18 08:35 Nasal Nares MRSA Culture - Final NO METHICILLIN RESISTANT STAPH AUREUS... Complete Laboratory Tests 01/14/18 05:45: White Blood Count [Pending], Red Blood Count 4.65L, Hemoglobin 13.0L, Hematocrit 41.5L, Mean Corpuscular Volume 89, Mean Corpuscular Hemoglobin 28.0, Mean Corpuscular Hemoglobin Concent 31.4L, Red Cell Distribution Width 18.5H, Platelet Count 112L, Mean Platelet Volume 7.6, Neutrophils (%) (Auto) , Lymphocytes (%) (Auto) , Monocytes (%) (Auto) , Eosinophils (%) (Auto) , Basophils (%) (Auto) , Differential Total Cells Counted 100, Neutrophils % ( Manual) 47, Lymphocytes % (Manual) 38, Monocytes % (Manual) 11H, Eosinophils % ( Manual) 4H, Basophils % (Manual) 0, Band Neutrophils 0, Lymphocytes [Pending], Platelet Estimate DecreasedL, Platelet Morphology Normal, Hypochromasia 1+, Anisocytosis 1+, Sodium Level 135L, Potassium Level 4.8, Chloride Level 97L, Carbon Dioxide Level 24, Anion Gap 14, Blood Urea Nitrogen 58H, Creatinine 10.4H , Estimat Glomerular Filtration Rate 6.3, Glucose Level 73L, Hemoglobin A1c 5.7 , Uric Acid 5.8, Calcium Level 8.7, Phosphorus Level 7.3H, Magnesium Level 2.1, Total Bilirubin 0.5, Gamma Glutamyl Transpeptidase 40, Aspartate Amino Transf ( AST/SGOT) 20, Alanine Aminotransferase (ALT/SGPT) 13, Alkaline Phosphatase 200H , Total Creatine Kinase 65, Pro-B-Type Natriuretic Peptide 7513H, Total Protein 8.2, Albumin 3.4, Globulin 4.8, Albumin/Globulin Ratio 0.7L, Triglycerides Level 96, Cholesterol Level 158, LDL Cholesterol 71, HDL Cholesterol 77H, Cholesterol/HDL Ratio 2.1L, Vitamin B12 Level 445, Thyroid Stimulating Hormone ( TSH) 1.376, Percent CD3 Cells [Pending], Absolute CD3 Count [Pending], Percent CD4 Cells [Pending], Absolute CD4 Count [Pending], T-Lymphocyte CD4/CD8 Ratio [ Pending], Percent CD8 Cells [Pending], Absolute CD8 Count [Pending], HIV-1 RNA ( PCR) log10 Value [Pending], HIV-1 RNA Ultraquantitative (PCR) [Pending] Current Medications Medications (Trade) Dose Ordered Sig/Anum Route PRN Reason Start Time Stop Time Status Last Admin Dose Admin Acetaminophen (Tylenol) 650 mg Q4H PRN ORAL Mild Pain/Temp > 100.5 01/13/18 08:15 02/12/18 08:14 Acyclovir (Zovirax) 800 mg DAILY ORAL 01/13/18 09:00 02/12/18 08:59 UNV Acyclovir (Zovirax) 800 mg DAILY ORAL 01/13/18 20:00 01/14/18 23:59 Apixaban (Eliquis) 2.5 mg Q12HR ORAL 01/13/18 21:00 02/12/18 20:59 01/13/18 20:08 Aspirin (ASA) 81 mg DAILY ORAL 01/13/18 09:00 02/12/18 08:59 01/13/18 09:41 Atenolol (Tenormin) 50 mg DAILY ORAL 01/13/18 09:00 02/12/18 08:59 01/14/18 13:32 Cinacalcet (Sensipar) 60 mg DAILY ORAL 01/13/18 09:00 02/12/18 08:59 01/13/18 09:41 Darunavir (Prezista) 800 mg DAILY ORAL 01/13/18 20:00 02/12/18 19:59 01/14/18 13:31 Diphenhydramine HCl (Benadryl) 25 mg Q4H PRN IVP Itching 01/13/18 08:15 02/12/18 08:14 01/14/18 10:37 Gabapentin (Neurontin) 300 mg Q12HR ORAL 01/13/18 09:00 02/12/18 08:59 01/13/18 20:08 Hydromorphone HCl (Dilaudid) 0.5 mg Q4H PRN IVP PAIN 1-6 01/13/18 08:15 01/20/18 08:14 Hydromorphone HCl (Dilaudid) 1 mg Q4H PRN IVP Severe Pain (Pain Scale 7-10) 01/13/18 08:15 01/20/18 08:14 01/14/18 13:43 Patient Own Medication (Patient's Own Med) 1 ea DAILY@2100 ORAL 01/14/18 21:00 02/13/18 20:59 Pravastatin Sodium (Pravachol) 20 mg BEDTIME ORAL 01/13/18 21:00 02/12/18 20:59 01/13/18 20:08 Raltegravir (Isentress) 400 mg DAILY@2100 ORAL 01/14/18 21:00 02/13/18 20:59 Sevelamer Carbonate (Renvela) 800 mg THREE TIMES A DAY ORAL 01/13/18 09:00 02/12/18 08:59 01/14/18 13:32 Srinivasan Patterson MD Jan 14, 2018 17:12
--- NOTE | 2018-01-14 17:23 | History & Physical ---
History and Physical History & Physicial Dictated for Int Med-Dr Hoff no. [id number]. KRYSTIAN RICHTER Jan 14, 2018 17:23
--- NOTE | 2018-01-14 19:45 | Consultation ---
DATE OF CONSULTATION: 01/14/2018 REQUESTING PHYSICIAN: Nabeel Hoff M.D. CONSULTING PHYSICIAN: Anotni Crane D.P.M. REASON FOR CONSULTATION: Chronic ulcer of the left second toe in the presence of peripheral arterial disease and history of previous toe amputations. HISTORY OF PRESENT ILLNESS: The patient is a 52-year-old male, who was admitted to [facility] on 01/13/2018 for possible osteomyelitis of left second toe. The patient states that he has been dealing with a chronic wound on his left second toe since March of last year. He has been self-treating. He states that it is painful at times and it has slightly improved today. Denies any fevers, chills, nausea, or vomiting. The patient is slightly drowsy this morning, not responding to all questioning. PAST MEDICAL HISTORY: Significant for HIV; end-stage renal disease, on hemodialysis; atrial fibrillation; history of hypertension; asthma; gastroesophageal reflux disease; history of pericardial effusion; coronary artery disease; peripheral vascular disease; history of cholecystectomy; and a neck mass excision in 2010. He has an AV shunt placement as well as he had a VATS procedure for empyema in 2010. ALLERGIES: He is allergic to ciprofloxacin, morphine, nasal sprays, and Flonase. MEDICATIONS: Per MAR. FAMILY HISTORY: Noncontributory. SOCIAL HISTORY: Noncontributory. REVIEW OF SYSTEMS: HEENT: The patient denies any headaches, blurred vision, or ringing in the ears. CARDIORESPIRATORY: The patient denies any chest pain or shortness of breath. GENITOURINARY: The patient denies any urgency, frequency, burning upon urination, or hematuria. GASTROINTESTINAL: The patient denies any constipation, diarrhea, or blood in the stool. PHYSICAL EXAMINATION: VITAL SIGNS: Temperature is 97.7, pulse is 77, respirations 20, blood pressure is 109/72, and saturating 96% on room air. EXTREMITIES: Lower extremity physical exam, vascular, nonpalpable pedal pulses noted bilaterally. Feet are equally warm. There is no edema or cyanosis noted. DERMATOLOGICAL: There is a partial-thickness ulceration noted at the distal aspect of the left second toe. There is some serosanguineous drainage noted from the site. No malodor. The toe does not appear edematous. Remaining dermatological exam is unremarkable. MUSCULOSKELETAL: The patient ambulates with a cane according to his self-stated history. Has an amputation of the right 4th toe and the left 3rd and 4th toes which have healed. He has 4/5 muscle strength in anterior, lateral and posterior muscle groups of bilateral lower extremities. No other gross deformities are noted. NEUROLOGICAL: Protective threshold is diminished. IMAGING: Lower extremity imaging, foot x-rays done of the left foot on this admission show no plain radiographic evidence of osteomyelitis. There is vascular calcifications noted. LABORATORY DATA: White blood cell count is 3.4, hemoglobin and hematocrit is 13.0 and 41.5, and platelet count is 112. His potassium is 4.8, BUN is 58, and creatinine is 10.4. Hemoglobin A1c is 5.7. Uric acid is 5.8. C-reactive protein is 1.2. Albumin is 3.4. INR is 1.0. Immunology studies are all pending. Serology is all pending. ASSESSMENT: 1. Osteomyelitis of the left second toe ? 2. Non-pressure ulcer of the left second toe. 3. Peripheral arterial disease noted on x-ray with the presence of vascular calcifications. 4. End-stage renal disease. 5. Healed amputation of the right 4th toe, left 3rd toe, and left 4th toe. 6. Human immunodeficiency virus. PLAN: 1. Chart review performed at [place] [facility]. 2. We will order MRI of the left foot to evaluate for osteo due to chronic nature of the wound. 3. Peripheral arterial disease noted on x-ray, although no arterial studies noted at either facility recently. The patient is under the care of Dr. Lancaster, Vascular Surgery at [facility]. 4. Antibiotics per Infectious Disease. Dr. Sidhu has been contacted. 5. Continue wound care as ordered. 6. We will follow. Thank you for the courtesy of this consultation, Dr. Hoff. Antoni Crane D.P.M. DR: RICHIE JOB#: [id number] CC:
--- NOTE | 2018-01-14 19:53 | Infectious Diseases Prog Note ---
Assessment/Plan Assessment/Plan Assessment: PVD s/p L 3rd and 4th toe amputation Acute on Chronic L hand pain L foot pain, chronic 2nd tip toe ulcer with callous -L hand: No acute bony trauma. Postsurgical changes, as described. No definite plain radiographic evidence of osteomyelitis. -L foot: No acute bony trauma. Postsurgical changes.No plain radiographic evidence of osteomyelitis. -no infectious process at present Afebrile, no leukocytosis -mild leukopenia probably due to HIV HIV -?CD4, VL HLD Asthma HTN GERD CAD PVD hx pericardial effusion ESRD on HD TTSat w/ thrombose R upper arm AV graft, on kidney transplant list Seizure disorder syncope Plan: -Continue ARV : Darunavir, Dolutegravir and Ritonavir - DC maintenance acyclovir pt has been off of it in the last 4 mo -HIV, CD4 -Vascular surg eval -wound care -f/u cx -Monitor CBC/BMP, temperatures Subjective Allergies: Coded Allergies: FLUTICASONE (Unverified Allergy, Unknown, 02/23/17) LEVOFLOXACIN (Unverified Allergy, Unknown, 08/22/14) MORPHINE (Unverified Allergy, Unknown, 02/23/17) Uncoded Allergies: nasal spray (Allergy, Unknown, 07/03/15) Subjective pain is improving Objective Vital Signs Last 24 Hour Vital Signs Date Time Temp Pulse Resp B/P (MAP) Pulse Ox O2 Delivery O2 Flow Rate FiO2 01/14/18 15:45 97.7 58 20 115/74 99 97.7 01/14/18 14:13 98.1 01/14/18 13:43 98.1 01/14/18 13:32 82 115/67 01/14/18 12:00 98.1 82 20 115/67 97 98.1 01/14/18 11:45 Room Air 01/14/18 08:35 97.0 55 20 113/62 100 97.0 01/14/18 08:31 97.7 01/14/18 08:10 Room Air 01/14/18 04:35 97.7 77 20 109/72 96 Room Air 97.7 Height (Feet): 6 Height (Inches): 3.00 Weight (Pounds): 180 HEENT: anicteric Respiratory/Chest: no respiratory distress Cardiovascular: regular rhythm Abdomen: no organomegaly Microbiology Date/Time Source Procedure Growth Status 01/13/18 08:35 Nasal Nares MRSA Culture - Final NO METHICILLIN RESISTANT STAPH AUREUS... Complete Laboratory Tests Test 01/14/18 05:45 White Blood Count Pending Red Blood Count 4.65 M/UL (4.70-6.10) L Hemoglobin 13.0 G/DL (14.2-18.0) L Hematocrit 41.5 % (42.0-52.0) L Mean Corpuscular Volume 89 FL (80-99) Mean Corpuscular Hemoglobin 28.0 PG (27.0-31.0) Mean Corpuscular Hemoglobin Concent 31.4 G/DL (32.0-36.0) L Red Cell Distribution Width 18.5 % (11.6-14.8) H Platelet Count 112 K/UL (150-450) L Mean Platelet Volume 7.6 FL (6.5-10.1) Neutrophils (%) (Auto) % (45.0-75.0) Lymphocytes (%) (Auto) % (20.0-45.0) Monocytes (%) (Auto) % (1.0-10.0) Eosinophils (%) (Auto) % (0.0-3.0) Basophils (%) (Auto) % (0.0-2.0) Differential Total Cells Counted 100 Neutrophils % (Manual) 47 % (45-75) Lymphocytes % (Manual) 38 % (20-45) Monocytes % (Manual) 11 % (1-10) H Eosinophils % (Manual) 4 % (0-3) H Basophils % (Manual) 0 % (0-2) Band Neutrophils 0 % (0-8) Lymphocytes Pending Platelet Estimate Decreased L Platelet Morphology Normal Hypochromasia 1+ Anisocytosis 1+ Sodium Level 135 MMOL/L (136-145) L Potassium Level 4.8 MMOL/L (3.5-5.1) Chloride Level 97 MMOL/L (98-107) L Carbon Dioxide Level 24 MMOL/L (21-32) Anion Gap 14 mmol/L (5-15) Blood Urea Nitrogen 58 mg/dL (7-18) H Creatinine 10.4 MG/DL (0.55-1.30) H Estimat Glomerular Filtration Rate 6.3 mL/min (>60) Glucose Level 73 MG/DL (74-106) L Hemoglobin A1c 5.7 % (4.3-6.0) Uric Acid 5.8 MG/DL (2.6-7.2) Calcium Level 8.7 MG/DL (8.5-10.1) Phosphorus Level 7.3 MG/DL (2.5-4.9) H Magnesium Level 2.1 MG/DL (1.8-2.4) Total Bilirubin 0.5 MG/DL (0.2-1.0) Gamma Glutamyl Transpeptidase 40 U/L (5-85) Aspartate Amino Transf (AST/SGOT) 20 U/L (15-37) Alanine Aminotransferase (ALT/SGPT) 13 U/L (12-78) Alkaline Phosphatase 200 U/L (46-116) H Total Creatine Kinase 65 U/L (26-308) Pro-B-Type Natriuretic Peptide 7513 pg/mL (0-125) H Total Protein 8.2 G/DL (6.4-8.2) Albumin 3.4 G/DL (3.4-5.0) Globulin 4.8 g/dL Albumin/Globulin Ratio 0.7 (1.0-2.7) L Triglycerides Level 96 MG/DL (30-150) Cholesterol Level 158 MG/DL (< 200) LDL Cholesterol 71 mg/dL (<100) HDL Cholesterol 77 MG/DL (40-60) H Cholesterol/HDL Ratio 2.1 (3.3-4.4) L Vitamin B12 Level 445 PG/ML (193-986) Thyroid Stimulating Hormone (TSH) 1.376 uiU/mL (0.358-3.740) Percent CD3 Cells Pending Absolute CD3 Count Pending Percent CD4 Cells Pending Absolute CD4 Count Pending T-Lymphocyte CD4/CD8 Ratio Pending Percent CD8 Cells Pending Absolute CD8 Count Pending HIV-1 RNA (PCR) log10 Value Pending HIV-1 RNA Ultraquantitative (PCR) Pending Current Medications Medications (Trade) Dose Ordered Sig/Anum Route PRN Reason Start Time Stop Time Status Last Admin Dose Admin Acetaminophen (Tylenol) 650 mg Q4H PRN ORAL Mild Pain/Temp > 100.5 01/13/18 08:15 02/12/18 08:14 Acyclovir (Zovirax) 800 mg DAILY ORAL 01/13/18 09:00 02/12/18 08:59 UNV Acyclovir (Zovirax) 800 mg DAILY ORAL 01/13/18 20:00 01/14/18 23:59 Apixaban (Eliquis) 2.5 mg Q12HR ORAL 01/13/18 21:00 02/12/18 20:59 01/13/18 20:08 Aspirin (ASA) 81 mg DAILY ORAL 01/13/18 09:00 02/12/18 08:59 01/13/18 09:41 Atenolol (Tenormin) 50 mg DAILY ORAL 01/13/18 09:00 02/12/18 08:59 01/14/18 13:32 Cinacalcet (Sensipar) 60 mg DAILY ORAL 01/13/18 09:00 02/12/18 08:59 01/13/18 09:41 Darunavir (Prezista) 800 mg DAILY ORAL 01/13/18 20:00 02/12/18 19:59 01/14/18 13:31 Diphenhydramine HCl (Benadryl) 25 mg Q4H PRN IVP Itching 01/13/18 08:15 02/12/18 08:14 01/14/18 17:36 Gabapentin (Neurontin) 300 mg Q12HR ORAL 01/13/18 09:00 02/12/18 08:59 01/13/18 20:08 Hydromorphone HCl (Dilaudid) 0.5 mg Q4H PRN IVP PAIN 1-6 01/13/18 08:15 01/20/18 08:14 Hydromorphone HCl (Dilaudid) 1 mg Q4H PRN IVP Severe Pain (Pain Scale 7-10) 01/13/18 08:15 01/20/18 08:14 01/14/18 13:43 Patient Own Medication (Patient's Own Med) 1 ea DAILY@2100 ORAL 01/14/18 21:00 02/13/18 20:59 Pravastatin Sodium (Pravachol) 20 mg BEDTIME ORAL 01/13/18 21:00 02/12/18 20:59 01/13/18 20:08 Raltegravir (Isentress) 400 mg DAILY@2100 ORAL 01/14/18 21:00 02/13/18 20:59 Sevelamer Carbonate (Renvela) 800 mg THREE TIMES A DAY ORAL 01/13/18 09:00 02/12/18 08:59 01/14/18 17:29 SCOT COFFEY M.D. Jan 14, 2018 19:53
[2018-01-14 20:00] VITALS: BP 96/57
[2018-01-14] MEDS: Isentress 400mg tab ORAL SCH (20:35)
[2018-01-15] VITALS: BP 112/66
[2018-01-15] MEDS: DiphenhydrAMINE 50mg/ml Inj IVP PRN ×4 (00:04→22:53)
[2018-01-15] MEDS: HYDROmorphone 1mg/ml Carpuject IVP PRN ×2 (02:22→06:37)
--- NOTE | 2018-01-15 03:45 | History and Physical Report ---
DATE OF ADMISSION: 01/13/2018 CHIEF COMPLAINT: This is a 52-year-old male, presents with chief complaint of pain and numbness of the left side of his body. HISTORY OF PRESENT ILLNESS: The patient has a history of end-stage renal disease. The patient is on hemodialysis on Tuesday, , and Tuesday. The patient was diagnosed with deep venous thrombosis of left upper extremity at [facility] in October 2017. The patient presented to [facility] emergency room complaining of a six-day history of pain and numbness of the left side of his body. The patient states it is like an electrical shock. The patient also complains of left second toe pain. The patient was admitted for left second toe possible osteomyelitis and left-sided paresthesia. PAST MEDICAL HISTORY: Significant for: 1. HIV, diagnosed in 1994. 2. End-stage renal disease, diagnosed in 1994. 3. Atrial fibrillation. 4. Deep venous thrombosis of left upper extremity as above. 5. Hypertension. 6. History of coronary artery disease. PAST SURGICAL HISTORY: Significant for: 1. Cholecystectomy. 2. Appendectomy. 3. Circumcision. 4. Lumbar spine laminectomy. CURRENT MEDICATIONS: 1. Acyclovir 800 mg p.o. daily. 2. Aspirin 81 mg p.o. daily. 3. Atenolol 50 mg p.o. daily. 4. Sensipar 60 mg p.o. daily. 5. Prezista 800 mg p.o. daily. 6. Gabapentin 300 mg p.o. twice daily. 7. Meloxicam 7.5 mg p.o. daily. 8. Oxycodone 15 mg p.o. q.6 h. p.r.n. 9. Pravastatin 20 mg p.o. daily. 10. Isentress 400 mg one tablet p.o. daily. 11. Norvir 100 mg one tablet p.o. daily. 12. Renvela 800 mg five tablets p.o. three times daily. 13. Renagel 800 mg p.o. three times daily. 14. Zocor 20 mg p.o. daily. 15. Coumadin 9 mg p.o. daily. ALLERGIES: 1. Fluticasone nasal spray. 2. Levaquin. 3. Vancomycin. 4. Morphine, however, this only causes nausea. SOCIAL HISTORY: The patient is single and denies tobacco or alcohol use. The patient is disabled. REVIEW OF SYSTEMS: CONSTITUTIONAL: The patient denies weight loss or weight gain. The patient denies fevers or chills. HEENT: The patient denies ear or throat pain. The patient denies headache. CARDIOVASCULAR: The patient denies palpitations or chest pain. CHEST: The patient denies wheeze or shortness of breath. ABDOMINAL: The patient denies nausea, vomiting, diarrhea, or constipation. GENITOURINARY: The patient denies dysuria or increased frequency of urination. NEUROMUSCULAR: The patient denies seizures or generalized weakness. PHYSICAL EXAMINATION: VITAL SIGNS: Temperature 98.1 degrees, respirations 20, pulse 82, and blood pressure 115/67. GENERAL: The patient is a well-developed and well-nourished, thin appearing, male, in no apparent distress. HEENT: Eyes, pupils equal and responsive to light and accommodation. Extraocular movements are intact. NECK: Supple without lymphadenopathy. CHEST: Lungs are clear to auscultation bilaterally without wheezes or rales. CARDIOVASCULAR: Regular rhythm and rate. S1 and S2 are normal without murmurs, rubs, or gallops. ABDOMEN: Soft, nontender, and nondistended. Positive bowel sounds. No evidence of hepatosplenomegaly. Currently, no rebound or guarding noted. EXTREMITIES: Negative for clubbing, cyanosis, or edema. There is presence of discolored left second toe. NEUROLOGIC: Cranial nerves II through XII grossly intact without focal deficits. Motor strength is 5/5 bilaterally intact. Deep tendon reflexes are 2+ plantar. LABORATORY STUDIES: WBC 4.0, hemoglobin 12.9, hematocrit 41.1, and platelets 112,000. Sodium 137, potassium 4.3, chloride 100, CO2 30, BUN 37, creatinine 8.1, and glucose 98. ProTime 10.5, INR 1.0, and PTT 30. An x-ray of the left foot failed to demonstrate osteomyelitis. ASSESSMENT: This is a 52-year-old male: 1. Probable osteomyelitis of left second toe. 2. Paresthesia to the left side of the body. 3. Human immunodeficiency virus. 4. End-stage renal disease. 5. Deep venous thrombosis. 6. Hypertension. 7. Atrial fibrillation. 8. Coronary artery disease. 9. Asthma. 10. Gastritis. TREATMENT: 1. Left second toe pain and swelling. An MRI of the left foot is pending. A Podiatry consultation has been obtained with Dr. Crane. We will follow recommendations of Podiatry. The patient does have a history of peripheral vascular disease. The patient may require amputation of left second toe if osteomyelitis is present. The patient has been started empirically on . 2. Paresthesia to left side of the body. A Neurology consultation has been obtained with Dr. King. 3. Human immunodeficiency virus. Continue HAART as above. 4. End-stage renal disease. A Nephrology consultation has been obtained with Dr. Thomas. The patient will continue dialysis every Tuesday, and Tuesday. 5. Deep venous thrombosis of the left upper extremity. The patient is status post Coumadin therapy. 6. Hypertension. Continue atenolol as above. 7. Atrial fibrillation. 8. Coronary artery disease. 9. Asthma. 10. Gastritis. Fabricio Guillory M.D. DR: Vladimir JOB#: [id number] CC:
[2018-01-15 07:32] LABS: HEMATOCRIT 41.9 % (42.0-52.0); HEMOGLOBIN 13.4 G/DL (14.2-18.0); MEAN CORPUSCULAR VOLUME 88 FL (80-99); PLATELET COUNT 87 K/UL (150-450); RED BLOOD COUNT 4.79 M/UL (4.70-6.10); RED CELL DISTRIBUTION WIDTH 18.3 % (11.6-14.8); WHITE BLOOD COUNT 3.5 K/UL (4.8-10.8)
[2018-01-15 07:56] LABS: ANION GAP 10 mmol/L (5-15); BLOOD UREA NITROGEN 56 mg/dL (7-18); CARBON DIOXIDE 28 MMOL/L (21-32); CHLORIDE 97 MMOL/L (98-107); CREATININE 9.7 MG/DL (0.55-1.30); POTASSIUM 4.8 MMOL/L (3.5-5.1); SODIUM 135 MMOL/L (136-145)
[2018-01-15 08:00] VITALS: BP 111/69
[2018-01-15] MEDS: Eliquis 2.5mg tablet ORAL SCH ×2 (08:39→20:01)
[2018-01-15] MEDS: Aspirin Baby 81mg ORAL SCH (08:39)
[2018-01-15] MEDS: Sensipar 30mg Tab ORAL SCH (08:40)
[2018-01-15 12:00] VITALS: BP 90/52
--- NOTE | 2018-01-15 13:39 | General Surgery Progress Note ---
General Surgery-Progress Note Subjective Symptoms: improved Additional Comments doing well. states he feels good. no n/v/f/c. left hand pain resolved. left 2nd toe novelty twister tender but shooting nerve pain in left leg resolved. Objective Last 24 Hour Vital Signs Date Time Temp Pulse Resp B/P (MAP) Pulse Ox O2 Delivery O2 Flow Rate FiO2 01/15/18 12:47 97.2 01/15/18 12:17 97.2 01/15/18 12:00 97.2 61 18 90/52 99 97.2 01/15/18 08:40 77 111/69 01/15/18 08:00 97.8 77 18 111/69 98 Room Air 97.8 01/15/18 06:37 98.2 01/15/18 00:00 98.2 57 19 112/66 93 Room Air 98.2 01/14/18 20:00 97.2 54 20 96/57 94 Room Air 97.2 01/14/18 15:45 97.7 58 20 115/74 99 97.7 01/14/18 14:13 98.1 01/14/18 13:43 98.1 I&O Intake and Output 01/14/18 01/15/18 19:00 07:00 Intake Total 450 ml Output Total 3200 ml Balance -2750 ml Intake Oral 450 ml Hemodialysis UF 3200 ml Dressing: saturated Wound: clean Drains: none Cardiovascular: RSR Respiratory: clear Abdomen: soft, flat, non-tender, present bowel sounds Extremities: tenderness, cyanosis, other - see wound care photos Laboratory Tests Test 01/15/18 05:35 White Blood Count 3.5 K/UL (4.8-10.8) L Red Blood Count 4.79 M/UL (4.70-6.10) Hemoglobin 13.4 G/DL (14.2-18.0) L Hematocrit 41.9 % (42.0-52.0) L Mean Corpuscular Volume 88 FL (80-99) Mean Corpuscular Hemoglobin 28.0 PG (27.0-31.0) Mean Corpuscular Hemoglobin Concent 31.9 G/DL (32.0-36.0) L Red Cell Distribution Width 18.3 % (11.6-14.8) H Platelet Count 87 K/UL (150-450) L Mean Platelet Volume 7.2 FL (6.5-10.1) Neutrophils (%) (Auto) % (45.0-75.0) Lymphocytes (%) (Auto) % (20.0-45.0) Monocytes (%) (Auto) % (1.0-10.0) Eosinophils (%) (Auto) % (0.0-3.0) Basophils (%) (Auto) % (0.0-2.0) Differential Total Cells Counted 100 Neutrophils % (Manual) 54 % (45-75) Lymphocytes % (Manual) 29 % (20-45) Monocytes % (Manual) 13 % (1-10) H Eosinophils % (Manual) 4 % (0-3) H Basophils % (Manual) 0 % (0-2) Band Neutrophils 0 % (0-8) Platelet Estimate Decreased L Platelet Morphology Normal Anisocytosis 1+ Sodium Level 135 MMOL/L (136-145) L Potassium Level 4.8 MMOL/L (3.5-5.1) Chloride Level 97 MMOL/L (98-107) L Carbon Dioxide Level 28 MMOL/L (21-32) Anion Gap 10 mmol/L (5-15) Blood Urea Nitrogen 56 mg/dL (7-18) H Creatinine 9.7 MG/DL (0.55-1.30) H Estimat Glomerular Filtration Rate 6.9 mL/min (>60) Glucose Level 73 MG/DL (74-106) L Calcium Level 9.0 MG/DL (8.5-10.1) Plan Problems: (1) Peripheral vascular disease Assessment & Plan: 52M with long history of known peripheral vascular disease and vasculopathy. Presents with chronic distal left to and finger pain. has chronic skin changes at toes and fingers. on left hand nails have come off and distal vasculopathy noted. no acute changes. on left foot prior amputation and 2nd toe with chronic changes and ulcer noted. no acute process seen. likely has worsening peripheral vascular disease. no acute intervention needed. no signs of acute infection. needs to follow with his vascular surgeon for angiography. may benefit from angioplasty or interventions if indicated/necessary. -pending MRI to evaluate for distal foot osteo at second toe. -no acute surgical intervention necessary -will monitor exam. thank you for this consult. will follow with Hermilo Thompson Jan 15, 2018 13:38
--- NOTE | 2018-01-15 15:11 | Internal Med Progress Note ---
Subjective Date of Service: Jan 15, 2018 Physician Name Richter,Krystian Attending Physician Nabeel Hoff MD Current Medications Medications (Trade) Dose Ordered Sig/Anum Route PRN Reason Start Time Stop Time Status Last Admin Dose Admin Acetaminophen (Tylenol) 650 mg Q4H PRN ORAL Mild Pain/Temp > 100.5 01/13/18 08:15 02/12/18 08:14 Apixaban (Eliquis) 2.5 mg Q12HR ORAL 01/13/18 21:00 02/12/18 20:59 01/15/18 08:39 Aspirin (ASA) 81 mg DAILY ORAL 01/13/18 09:00 02/12/18 08:59 01/15/18 08:39 Atenolol (Tenormin) 50 mg DAILY ORAL 01/13/18 09:00 02/12/18 08:59 01/15/18 08:40 Cinacalcet (Sensipar) 60 mg DAILY ORAL 01/13/18 09:00 02/12/18 08:59 01/15/18 08:40 Darunavir (Prezista) 800 mg DAILY ORAL 01/13/18 20:00 02/12/18 19:59 01/15/18 08:39 Diphenhydramine HCl (Benadryl) 25 mg Q4H PRN IVP Itching 01/13/18 08:15 02/12/18 08:14 01/15/18 09:50 Gabapentin (Neurontin) 300 mg Q12HR ORAL 01/13/18 09:00 02/12/18 08:59 01/15/18 08:39 Hydromorphone HCl (Dilaudid) 0.5 mg Q4H PRN IVP PAIN 1-6 01/13/18 08:15 01/20/18 08:14 01/15/18 12:17 Lorazepam (Ativan 2mg/ml 1ml) 0.5 mg ONCE PRN IV 30 mins prior to MRI 01/16/18 08:00 01/16/18 20:00 Ondansetron HCl (Zofran) 4 mg Q4H PRN IVP Nausea & Vomiting 01/15/18 09:30 02/14/18 09:29 Patient Own Medication (Patient's Own Med) 1 ea DAILY@2100 ORAL 01/14/18 21:00 02/13/18 20:59 01/14/18 20:37 Pravastatin Sodium (Pravachol) 20 mg BEDTIME ORAL 01/13/18 21:00 02/12/18 20:59 01/14/18 20:35 Raltegravir (Isentress) 400 mg DAILY@2100 ORAL 01/14/18 21:00 02/13/18 20:59 01/14/18 20:35 Sevelamer Carbonate (Renvela) 800 mg THREE TIMES A DAY ORAL 01/13/18 09:00 02/12/18 08:59 01/15/18 12:17 Allergies: Coded Allergies: FLUTICASONE (Unverified Allergy, Unknown, 02/23/17) LEVOFLOXACIN (Unverified Allergy, Unknown, 08/22/14) MORPHINE (Unverified Allergy, Unknown, 02/23/17) Uncoded Allergies: nasal spray (Allergy, Unknown, 07/03/15) ROS Limited/Unobtainable: No Constitutional: Reports: no symptoms HEENT: Reports: no symptoms Cardiovascular: Reports: no symptoms Respiratory: Reports: no symptoms Gastrointestinal/Abdominal: Reports: no symptoms Genitourinary: Reports: no symptoms Neurologic/Psychiatric: Reports: no symptoms Subjective 52 YO M admitted with left toe pain. Await MRI to R/O osteomyelitis. Cover for Int Juliano-Dr Hoff Objective Last Vital Signs Date Time Temp Pulse Resp B/P (MAP) Pulse Ox O2 Delivery O2 Flow Rate FiO2 01/15/18 12:47 97.2 01/15/18 12:00 61 18 90/52 99 01/15/18 08:00 Room Air General Appearance: WD/WN, no apparent distress, alert EENT: PERRL/EOMI, normal ENT inspection Neck: non-tender, normal alignment, supple, normal inspection Cardiovascular: normal peripheral pulses, normal rate, regular rhythm, no gallop/murmur, no JVD Respiratory/Chest: chest wall non-tender, lungs clear, normal breath sounds, no respiratory distress, no accessory muscle use Abdomen: normal bowel sounds, non tender, soft, no organomegaly, no mass Extremities: normal range of motion 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, no motor/sensory deficits Skin: normal pigmentation, warm/dry Laboratory Tests Test 01/15/18 05:35 White Blood Count 3.5 K/UL (4.8-10.8) L Red Blood Count 4.79 M/UL (4.70-6.10) Hemoglobin 13.4 G/DL (14.2-18.0) L Hematocrit 41.9 % (42.0-52.0) L Mean Corpuscular Volume 88 FL (80-99) Mean Corpuscular Hemoglobin 28.0 PG (27.0-31.0) Mean Corpuscular Hemoglobin Concent 31.9 G/DL (32.0-36.0) L Red Cell Distribution Width 18.3 % (11.6-14.8) H Platelet Count 87 K/UL (150-450) L Mean Platelet Volume 7.2 FL (6.5-10.1) Neutrophils (%) (Auto) % (45.0-75.0) Lymphocytes (%) (Auto) % (20.0-45.0) Monocytes (%) (Auto) % (1.0-10.0) Eosinophils (%) (Auto) % (0.0-3.0) Basophils (%) (Auto) % (0.0-2.0) Differential Total Cells Counted 100 Neutrophils % (Manual) 54 % (45-75) Lymphocytes % (Manual) 29 % (20-45) Monocytes % (Manual) 13 % (1-10) H Eosinophils % (Manual) 4 % (0-3) H Basophils % (Manual) 0 % (0-2) Band Neutrophils 0 % (0-8) Platelet Estimate Decreased L Platelet Morphology Normal Anisocytosis 1+ Sodium Level 135 MMOL/L (136-145) L Potassium Level 4.8 MMOL/L (3.5-5.1) Chloride Level 97 MMOL/L (98-107) L Carbon Dioxide Level 28 MMOL/L (21-32) Anion Gap 10 mmol/L (5-15) Blood Urea Nitrogen 56 mg/dL (7-18) H Creatinine 9.7 MG/DL (0.55-1.30) H Estimat Glomerular Filtration Rate 6.9 mL/min (>60) Glucose Level 73 MG/DL (74-106) L Calcium Level 9.0 MG/DL (8.5-10.1) Microbiology Date/Time Source Procedure Growth Status 01/13/18 08:35 Nasal Nares MRSA Culture - Final NO METHICILLIN RESISTANT STAPH AUREUS... Complete Intake and Output 01/14/18 01/15/18 19:00 07:00 Intake Total 450 ml Output Total 3200 ml Balance -2750 ml Intake Oral 450 ml Hemodialysis UF 3200 ml Assessment/Plan Problem List: (1) Peripheral vascular disease (2) osteomyelitis left toe 2nd digit Assessment & Plan: Await MRI. See podiratry note (3) HIV (human immunodeficiency virus infection) Assessment & Plan: Continue HAART. Await HIV Viral load. See ID note. (4) HTN (hypertension) (5) DVT (deep venous thrombosis) (6) ESRD (end stage renal disease) Assessment & Plan: See nephrology note. hemodialysis --Tue (7) Coronary artery disease (8) Atrial fibrillation KRYSTIAN RICHTER Jan 15, 2018 15:11
[2018-01-15] MEDS ORDERED: Hydromorphone 0.5mg/0.5ml inj SUBQ PRN (15:15)
--- NOTE | 2018-01-15 16:53 | Cardiac Electrophysiology PN ---
Subjective Subjective Cardiology consult dictated [id number] Objective Last 24 Hour Vital Signs Date Time Temp Pulse Resp B/P (MAP) Pulse Ox O2 Delivery O2 Flow Rate FiO2 01/15/18 12:47 97.2 01/15/18 12:17 97.2 01/15/18 12:00 97.2 61 18 90/52 99 97.2 01/15/18 08:40 77 111/69 01/15/18 08:00 97.8 77 18 111/69 98 Room Air 97.8 01/15/18 06:37 98.2 01/15/18 00:00 98.2 57 19 112/66 93 Room Air 98.2 01/14/18 20:00 97.2 54 20 96/57 94 Room Air 97.2 Intake and Output 01/14/18 01/15/18 19:00 07:00 Intake Total 450 ml Output Total 3200 ml Balance -2750 ml Intake Oral 450 ml Hemodialysis UF 3200 ml Laboratory Tests Test 01/15/18 05:35 White Blood Count 3.5 K/UL (4.8-10.8) L Red Blood Count 4.79 M/UL (4.70-6.10) Hemoglobin 13.4 G/DL (14.2-18.0) L Hematocrit 41.9 % (42.0-52.0) L Mean Corpuscular Volume 88 FL (80-99) Mean Corpuscular Hemoglobin 28.0 PG (27.0-31.0) Mean Corpuscular Hemoglobin Concent 31.9 G/DL (32.0-36.0) L Red Cell Distribution Width 18.3 % (11.6-14.8) H Platelet Count 87 K/UL (150-450) L Mean Platelet Volume 7.2 FL (6.5-10.1) Neutrophils (%) (Auto) % (45.0-75.0) Lymphocytes (%) (Auto) % (20.0-45.0) Monocytes (%) (Auto) % (1.0-10.0) Eosinophils (%) (Auto) % (0.0-3.0) Basophils (%) (Auto) % (0.0-2.0) Differential Total Cells Counted 100 Neutrophils % (Manual) 54 % (45-75) Lymphocytes % (Manual) 29 % (20-45) Monocytes % (Manual) 13 % (1-10) H Eosinophils % (Manual) 4 % (0-3) H Basophils % (Manual) 0 % (0-2) Band Neutrophils 0 % (0-8) Platelet Estimate Decreased L Platelet Morphology Normal Anisocytosis 1+ Sodium Level 135 MMOL/L (136-145) L Potassium Level 4.8 MMOL/L (3.5-5.1) Chloride Level 97 MMOL/L (98-107) L Carbon Dioxide Level 28 MMOL/L (21-32) Anion Gap 10 mmol/L (5-15) Blood Urea Nitrogen 56 mg/dL (7-18) H Creatinine 9.7 MG/DL (0.55-1.30) H Estimat Glomerular Filtration Rate 6.9 mL/min (>60) Glucose Level 73 MG/DL (74-106) L Calcium Level 9.0 MG/DL (8.5-10.1) Microbiology Date/Time Source Procedure Growth Status 01/13/18 08:35 Nasal Nares MRSA Culture - Final NO METHICILLIN RESISTANT STAPH AUREUS... Complete FRANKY SRIVASTAVA Jan 15, 2018 16:53
[2018-01-15 18:00] VITALS: BP 97/56
--- NOTE | 2018-01-15 18:13 | Nephrology Progress Note ---
Assessment/Plan Problem List: (1) ESRD on hemodialysis Assessment -. Human immunodeficiency virus. -. End-stage renal disease. on HD . -. Hypertension. -. Asthma. -. Atrial fibrillation. -. Gastroesophageal reflux disease. -. Hypertension. -. Coronary artery disease. -. History of pericardial effusion. -. Peripheral vascular disease. Plan Plan: Arrange for HD Per PMD Subjective ROS Limited/Unobtainable: No Constitutional: Reports: malaise Objective Objective Last 24 Hour Vital Signs Date Time Temp Pulse Resp B/P (MAP) Pulse Ox O2 Delivery O2 Flow Rate FiO2 01/15/18 18:00 97.3 60 18 97/56 98 Room Air 97.3 01/15/18 12:47 97.2 01/15/18 12:17 97.2 01/15/18 12:00 97.2 61 18 90/52 99 97.2 01/15/18 08:40 77 111/69 01/15/18 08:00 97.8 77 18 111/69 98 Room Air 97.8 01/15/18 06:37 98.2 01/15/18 00:00 98.2 57 19 112/66 93 Room Air 98.2 01/14/18 20:00 97.2 54 20 96/57 94 Room Air 97.2 Intake and Output 01/14/18 01/15/18 19:00 07:00 Intake Total 450 ml Output Total 3200 ml Balance -2750 ml Intake Oral 450 ml Hemodialysis UF 3200 ml Laboratory Tests 01/15/18 05:35: White Blood Count 3.5L, Red Blood Count 4.79, Hemoglobin 13.4L, Hematocrit 41.9L , Mean Corpuscular Volume 88, Mean Corpuscular Hemoglobin 28.0, Mean Corpuscular Hemoglobin Concent 31.9L, Red Cell Distribution Width 18.3H, Platelet Count 87L, Mean Platelet Volume 7.2, Neutrophils (%) (Auto) , Lymphocytes (%) (Auto) , Monocytes (%) (Auto) , Eosinophils (%) (Auto) , Basophils (%) (Auto) , Differential Total Cells Counted 100, Neutrophils % ( Manual) 54, Lymphocytes % (Manual) 29, Monocytes % (Manual) 13H, Eosinophils % ( Manual) 4H, Basophils % (Manual) 0, Band Neutrophils 0, Platelet Estimate DecreasedL, Platelet Morphology Normal, Anisocytosis 1+, Sodium Level 135L, Potassium Level 4.8, Chloride Level 97L, Carbon Dioxide Level 28, Anion Gap 10, Blood Urea Nitrogen 56H, Creatinine 9.7H, Estimat Glomerular Filtration Rate 6.9 , Glucose Level 73L, Calcium Level 9.0 Height (Feet): 6 Height (Inches): 3.00 Weight (Pounds): 180 General Appearance: no apparent distress Objective PE not change RALEIGH VAZ 18, 2018 18:13
[2018-01-15 19:56] VITALS: BP 104/59
[2018-01-15] MEDS: Isentress 400mg tab ORAL SCH (19:58)
--- NOTE | 2018-01-15 22:17 | Pulmonology Progress Note ---
Assessment/Plan Problems: (1) CHF (congestive heart failure) (2) Asthma (3) ESRD on hemodialysis (4) Peripheral vascular disease (5) Opioid dependence (6) Hypertension (7) Anemia in chronic kidney disease (8) HIV (human immunodeficiency virus infection) Assessment/Plan HD by nephrology f/u cxr HIV w/u in progress Dr. Garza called for podiatry f/u ID recommendations check electrolytes symptomatic treatment. Subjective ROS Limited/Unobtainable: No Allergies: Coded Allergies: FLUTICASONE (Unverified Allergy, Unknown, 02/23/17) LEVOFLOXACIN (Unverified Allergy, Unknown, 08/22/14) MORPHINE (Unverified Allergy, Unknown, 02/23/17) Uncoded Allergies: nasal spray (Allergy, Unknown, 07/03/15) Objective Last 24 Hour Vital Signs Date Time Temp Pulse Resp B/P (MAP) Pulse Ox O2 Delivery O2 Flow Rate FiO2 01/15/18 19:58 97.8 01/15/18 19:56 97.8 80 18 104/59 96 Room Air 97.8 01/15/18 18:00 97.3 60 18 97/56 98 Room Air 97.3 01/15/18 12:47 97.2 01/15/18 12:17 97.2 01/15/18 12:00 97.2 61 18 90/52 99 97.2 01/15/18 08:40 77 111/69 01/15/18 08:00 97.8 77 18 111/69 98 Room Air 97.8 01/15/18 06:37 98.2 01/15/18 00:00 98.2 57 19 112/66 93 Room Air 98.2 Intake and Output 01/14/18 01/15/18 19:00 07:00 Intake Total 450 ml Output Total 3200 ml Balance -2750 ml Intake Oral 450 ml Hemodialysis UF 3200 ml Objective General Appearance: WD/WN, no apparent distress Lines, tubes and drains: peripheral HEENT: normocephalic, anicteric Neck: non-tender, normal alignment Respiratory/Chest: chest wall non-tender, clear Cardiovascular/Chest: normal peripheral pulses Abdomen: normal bowel sounds EXt: no C/C/E Microbiology Date/Time Source Procedure Growth Status 01/13/18 08:35 Nasal Nares MRSA Culture - Final NO METHICILLIN RESISTANT STAPH AUREUS... Complete Laboratory Tests 01/15/18 05:35: White Blood Count 3.5L, Red Blood Count 4.79, Hemoglobin 13.4L, Hematocrit 41.9L , Mean Corpuscular Volume 88, Mean Corpuscular Hemoglobin 28.0, Mean Corpuscular Hemoglobin Concent 31.9L, Red Cell Distribution Width 18.3H, Platelet Count 87L, Mean Platelet Volume 7.2, Neutrophils (%) (Auto) , Lymphocytes (%) (Auto) , Monocytes (%) (Auto) , Eosinophils (%) (Auto) , Basophils (%) (Auto) , Differential Total Cells Counted 100, Neutrophils % ( Manual) 54, Lymphocytes % (Manual) 29, Monocytes % (Manual) 13H, Eosinophils % ( Manual) 4H, Basophils % (Manual) 0, Band Neutrophils 0, Platelet Estimate DecreasedL, Platelet Morphology Normal, Anisocytosis 1+, Sodium Level 135L, Potassium Level 4.8, Chloride Level 97L, Carbon Dioxide Level 28, Anion Gap 10, Blood Urea Nitrogen 56H, Creatinine 9.7H, Estimat Glomerular Filtration Rate 6.9 , Glucose Level 73L, Calcium Level 9.0 Current Medications Medications (Trade) Dose Ordered Sig/Anum Route PRN Reason Start Time Stop Time Status Last Admin Dose Admin Acetaminophen (Tylenol) 650 mg Q4H PRN ORAL Mild Pain/Temp > 100.5 01/13/18 08:15 02/12/18 08:14 Apixaban (Eliquis) 2.5 mg Q12HR ORAL 01/13/18 21:00 02/12/18 20:59 01/15/18 08:39 Aspirin (ASA) 81 mg DAILY ORAL 01/13/18 09:00 02/12/18 08:59 01/15/18 08:39 Atenolol (Tenormin) 50 mg DAILY ORAL 01/13/18 09:00 02/12/18 08:59 01/15/18 08:40 Cinacalcet (Sensipar) 60 mg DAILY ORAL 01/13/18 09:00 02/12/18 08:59 01/15/18 08:40 Darunavir (Prezista) 800 mg DAILY ORAL 01/13/18 20:00 02/12/18 19:59 01/15/18 08:39 Diphenhydramine HCl (Benadryl) 25 mg Q4H PRN IVP Itching 01/13/18 08:15 02/12/18 08:14 01/15/18 16:11 Gabapentin (Neurontin) 300 mg Q12HR ORAL 01/13/18 09:00 02/12/18 08:59 01/15/18 20:02 Hydromorphone HCl (Dilaudid) 0.5 mg Q4H PRN SUBQ For Pain 01/15/18 15:15 01/22/18 15:14 01/15/18 19:58 Lorazepam (Ativan 2mg/ml 1ml) 0.5 mg ONCE PRN IV 30 mins prior to MRI 01/16/18 08:00 01/16/18 20:00 Ondansetron HCl (Zofran) 4 mg Q4H PRN IVP Nausea & Vomiting 01/15/18 09:30 02/14/18 09:29 01/15/18 16:11 Patient Own Medication (Patient's Own Med) 1 ea DAILY@2100 ORAL 01/14/18 21:00 02/13/18 20:59 01/15/18 20:00 Pravastatin Sodium (Pravachol) 20 mg BEDTIME ORAL 01/13/18 21:00 02/12/18 20:59 01/15/18 20:02 Raltegravir (Isentress) 400 mg DAILY@2100 ORAL 01/14/18 21:00 02/13/18 20:59 01/15/18 19:58 Sevelamer Carbonate (Renvela) 800 mg THREE TIMES A DAY ORAL 01/13/18 09:00 02/12/18 08:59 01/15/18 17:25 Srinivasan Patterson MD Jan 15, 2018 22:17
--- NOTE | 2018-01-16 02:45 | Consultation ---
DATE OF CONSULTATION: 01/15/2018 CARDIOLOGY CONSULTATION CONSULTING PHYSICIAN: Heath Valencia M.D. REFERRING PHYSICIAN: Nabeel Hoff M.D. REASON FOR CONSULTATION: Management of atrial fibrillation and hypertension. HISTORY OF PRESENT ILLNESS: The patient is a 52-year-old gentleman with history of hypertension, chronic atrial fibrillation, history of end-stage renal disease, on hemodialysis, and gastroesophageal reflux disease. The patient also has history of pericardial effusion, peripheral vascular disease, history of cholecystectomy as well as neck mass excision in 2010. The last procedure was performed in 2010. The patient was noted to have chronic ulcer of the left second toe as a result of peripheral arterial disease and history of revision amputation. Cardiology consultation was obtained for further evaluation and management. REVIEW OF SYSTEMS: Negative other than what was mentioned in the history of present illness. PAST MEDICAL HISTORY: As mentioned above. ALLERGIES: He is allergic to Cipro, morphine, and Flonase. MEDICATIONS: Per reconciliation. FAMILY HISTORY: Noncontributory. SOCIAL HISTORY: Does not smoke or drink alcohol. PHYSICAL EXAMINATION: VITAL SIGNS: Blood pressure 111/69, pulse 77, respirations 18, and temperature 97.2. HEAD AND NECK: Shows no JVD. LUNGS: Clear. CARDIOVASCULAR: Shows regular S1 and S2. No gallop or murmur. ABDOMEN: Soft. EXTREMITIES: A 1+ pitting edema and gangrene as well as prior amputation. LABORATORY DATA: Labs show white count of 3.5, hemoglobin 13.5, hematocrit of 41%, platelet count 87,000. Sodium 135, potassium 4.8, BUN of 56, creatinine of 9.7, glucose 73. ASSESSMENT/PLAN: 1. Hypertension. The patient is on hemodialysis as well as atenolol 50 mg daily that would be continued. 2. Chronic atrial fibrillation. Rate controlled on atenolol 50 mg daily. The patient is also on anticoagulation with Eliquis 2.5 mg b.i.d. 3. End-stage renal disease, on hemodialysis. 4. HIV, on Isentress and Prezista. 5. Severe peripheral vascular disease and gangrene of the toe. We will get an echocardiogram for further evaluation and management and schedule the patient for nuclear stress test as well. Thank you very much, Dr. Hoff, for allowing me to participate in the care of this patient. Please do not hesitate to contact me for any questions regarding my evaluation. Heath Valencia M.D. DR: Ady JOB#: [id number] CC:
[2018-01-16] MEDS: HYDROmorphone 1mg/ml Carpuject IVP PRN ×3 (03:33→18:45)
[2018-01-16 04:00] VITALS: BP 121/77
[2018-01-16 08:00] VITALS: BP 116/71
[2018-01-16] MEDS ORDERED: LORazepam Inj 2mg/ml 1ml IV PRN (08:00)
[2018-01-16 08:05] LABS: HEMATOCRIT 39.9 % (42.0-52.0); HEMOGLOBIN 12.5 G/DL (14.2-18.0); MEAN CORPUSCULAR VOLUME 89 FL (80-99); PLATELET COUNT 96 K/UL (150-450); RED BLOOD COUNT 4.51 M/UL (4.70-6.10); RED CELL DISTRIBUTION WIDTH 18.6 % (11.6-14.8); WHITE BLOOD COUNT 3.9 K/UL (4.8-10.8)
[2018-01-16 08:19] LABS: ALANINE AMINOTRANSFERASE 16 U/L (12-78); ALBUMIN 3.4 G/DL (3.4-5.0); ALBUMIN/GLOBULIN RATIO 0.8 (1.0-2.7); ALKALINE PHOSPHATASE 183 U/L (46-116); ANION GAP 13 mmol/L (5-15); ASPARTATE AMINO TRANSFERASE 20 U/L (15-37); BILIRUBIN,TOTAL 0.8 MG/DL (0.2-1.0); BLOOD UREA NITROGEN 74 mg/dL (7-18); CALCIUM 8.9 MG/DL (8.5-10.1); CARBON DIOXIDE 27 MMOL/L (21-32); CHLORIDE 95 MMOL/L (98-107); CREATININE 11.6 MG/DL (0.55-1.30); POTASSIUM 5.9 MMOL/L (3.5-5.1); SODIUM 135 MMOL/L (136-145)
[2018-01-16] MEDS: Aspirin Baby 81mg ORAL SCH (09:52)
[2018-01-16] MEDS: Eliquis 2.5mg tablet ORAL SCH ×2 (09:55→21:00)
[2018-01-16] MEDS: Sensipar 30mg Tab ORAL SCH (10:01)
[2018-01-16] MEDS ORDERED: Sodium Polystyrene Sulfonate 15gm Powder ORAL ONE (11:15)
--- NOTE | 2018-01-16 11:58 | Internal Med Progress Note ---
Subjective Date of Service: Jan 16, 2018 Physician Name Krystian Richter Attending Physician Nabeel Hoff MD Current Medications Medications (Trade) Dose Ordered Sig/Anum Route PRN Reason Start Time Stop Time Status Last Admin Dose Admin Acetaminophen (Tylenol) 650 mg Q4H PRN ORAL Mild Pain/Temp > 100.5 01/13/18 08:15 02/12/18 08:14 Apixaban (Eliquis) 2.5 mg Q12HR ORAL 01/13/18 21:00 02/12/18 20:59 01/16/18 09:55 Aspirin (ASA) 81 mg DAILY ORAL 01/13/18 09:00 02/12/18 08:59 01/16/18 09:52 Atenolol (Tenormin) 50 mg DAILY ORAL 01/13/18 09:00 02/12/18 08:59 01/16/18 09:53 Chlorhexidine Gluconate (Yumiko-Hex 2%) 1 applic DAILY@2000 TOPIC 01/16/18 20:00 02/15/18 19:59 Cinacalcet (Sensipar) 60 mg DAILY ORAL 01/13/18 09:00 02/12/18 08:59 01/16/18 10:01 Darunavir (Prezista) 800 mg DAILY ORAL 01/13/18 20:00 02/12/18 19:59 01/16/18 09:54 Diphenhydramine HCl (Benadryl) 25 mg Q4H PRN IVP Itching 01/13/18 08:15 02/12/18 08:14 01/15/18 22:53 Gabapentin (Neurontin) 300 mg Q12HR ORAL 01/13/18 09:00 02/12/18 08:59 01/16/18 09:53 Hydromorphone HCl (Dilaudid) 1 mg Q4H PRN IVP Severe Pain (Pain Scale 7-10) 01/16/18 03:00 01/23/18 02:59 01/16/18 03:33 Lorazepam (Ativan 2mg/ml 1ml) 0.5 mg ONCE PRN IV 30 mins prior to MRI 01/16/18 08:00 01/16/18 20:00 01/16/18 08:42 Ondansetron HCl (Zofran) 4 mg Q4H PRN IVP Nausea & Vomiting 01/15/18 09:30 02/14/18 09:29 01/16/18 03:31 Patient Own Medication (Patient's Own Med) 1 ea DAILY@2099 ORAL 01/14/18 21:00 02/13/18 20:59 01/15/18 20:00 Pravastatin Sodium (Pravachol) 20 mg BEDTIME ORAL 01/13/18 21:00 02/12/18 20:59 01/15/18 20:02 Raltegravir (Isentress) 400 mg DAILY@2099 ORAL 01/14/18 21:00 02/13/18 20:59 01/15/18 19:58 Sevelamer Carbonate (Renvela) 800 mg THREE TIMES A DAY ORAL 01/13/18 09:00 02/12/18 08:59 01/16/18 11:51 Allergies: Coded Allergies: FLUTICASONE (Unverified Allergy, Unknown, 02/23/17) LEVOFLOXACIN (Unverified Allergy, Unknown, 08/22/14) MORPHINE (Unverified Allergy, Unknown, 02/23/17) Uncoded Allergies: nasal spray (Allergy, Unknown, 07/03/15) ROS Limited/Unobtainable: No Constitutional: Reports: no symptoms HEENT: Reports: no symptoms Cardiovascular: Reports: no symptoms Respiratory: Reports: no symptoms Gastrointestinal/Abdominal: Reports: no symptoms Genitourinary: Reports: no symptoms Neurologic/Psychiatric: Reports: no symptoms Subjective 52 YO M admitted with left toe pain. Await MRI results to R/O osteomyelitis. Cover for Int Med-Dr Hoff Objective Last Vital Signs Date Time Temp Pulse Resp B/P (MAP) Pulse Ox O2 Delivery O2 Flow Rate FiO2 01/16/18 09:53 65 116/71 01/16/18 08:00 97.9 18 95 97.9 01/16/18 04:00 Room Air Laboratory Tests Test 01/16/18 05:30 01/16/18 05:35 White Blood Count 3.9 K/UL (4.8-10.8) L Red Blood Count 4.51 M/UL (4.70-6.10) L Hemoglobin 12.5 G/DL (14.2-18.0) L Hematocrit 39.9 % (42.0-52.0) L Mean Corpuscular Volume 89 FL (80-99) Mean Corpuscular Hemoglobin 27.7 PG (27.0-31.0) Mean Corpuscular Hemoglobin Concent 31.3 G/DL (32.0-36.0) L Red Cell Distribution Width 18.6 % (11.6-14.8) H Platelet Count 96 K/UL (150-450) L Mean Platelet Volume 8.3 FL (6.5-10.1) Neutrophils (%) (Auto) % (45.0-75.0) Lymphocytes (%) (Auto) % (20.0-45.0) Monocytes (%) (Auto) % (1.0-10.0) Eosinophils (%) (Auto) % (0.0-3.0) Basophils (%) (Auto) % (0.0-2.0) Differential Total Cells Counted 100 Neutrophils % (Manual) 59 % (45-75) Lymphocytes % (Manual) 28 % (20-45) Monocytes % (Manual) 9 % (1-10) Eosinophils % (Manual) 4 % (0-3) H Basophils % (Manual) 0 % (0-2) Band Neutrophils 0 % (0-8) Platelet Estimate Decreased L Platelet Morphology Normal Anisocytosis 1+ Sodium Level 135 MMOL/L (136-145) L Potassium Level 5.9 MMOL/L (3.5-5.1) H Chloride Level 95 MMOL/L (98-107) L Carbon Dioxide Level 27 MMOL/L (21-32) Anion Gap 13 mmol/L (5-15) Blood Urea Nitrogen 74 mg/dL (7-18) H Creatinine 11.6 MG/DL (0.55-1.30) H Estimat Glomerular Filtration Rate 5.6 mL/min (>60) Glucose Level 64 MG/DL (74-106) L Calcium Level 8.9 MG/DL (8.5-10.1) Total Bilirubin 0.8 MG/DL (0.2-1.0) Aspartate Amino Transf (AST/SGOT) 20 U/L (15-37) Alanine Aminotransferase (ALT/SGPT) 16 U/L (12-78) Alkaline Phosphatase 183 U/L (46-116) H Total Protein 7.9 G/DL (6.4-8.2) Albumin 3.4 G/DL (3.4-5.0) Globulin 4.5 g/dL Albumin/Globulin Ratio 0.8 (1.0-2.7) L Phosphorus Level 7.6 MG/DL (2.5-4.9) H Intake and Output 01/15/18 01/16/18 19:00 07:00 Intake Total 600 ml Balance 600 ml Intake Oral 600 ml Objective General Appearance: WD/WN, no apparent distress, alert EENT: PERRL/EOMI, normal ENT inspection Neck: non-tender, normal alignment, supple, normal inspection Cardiovascular: normal peripheral pulses, normal rate, regular rhythm, no gallop/murmur, no JVD Respiratory/Chest: chest wall non-tender, lungs clear, normal breath sounds, no respiratory distress, no accessory muscle use Abdomen: normal bowel sounds, non tender, soft, no organomegaly, no mass Extremities: normal range of motion 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 See podiratry note (3) HIV (human immunodeficiency virus infection) Assessment & Plan: Continue HAART. Await HIV Viral load. See ID note. (4) HTN (hypertension) (5) DVT (deep venous thrombosis) (6) ESRD (end stage renal disease) Assessment & Plan: See nephrology note. hemodialysis (7) Coronary artery disease (8) Atrial fibrillation Status: not improved KRYSTIAN RICHTER Jan 16, 2018 11:58
--- NOTE | 2018-01-16 12:14 | Nephrology Progress Note ---
Assessment/Plan Problem List: (1) ESRD on hemodialysis Assessment -. Human immunodeficiency virus. -. End-stage renal disease. on HD .Sat -. Hypertension. -. Asthma. -. Atrial fibrillation. -. Gastroesophageal reflux disease. -. Hypertension. -. Coronary artery disease. -. History of pericardial effusion. -. Peripheral vascular disease. Plan Plan: kayexelate now- increase phos binder Arrange for HD Sat Per PMD Subjective ROS Limited/Unobtainable: No Constitutional: Reports: malaise Objective Objective Last 24 Hour Vital Signs Date Time Temp Pulse Resp B/P (MAP) Pulse Ox O2 Delivery O2 Flow Rate FiO2 01/16/18 09:53 65 116/71 01/16/18 08:00 97.9 65 18 116/71 95 97.9 01/16/18 04:00 98.0 78 19 121/77 98 Room Air 98.0 01/15/18 19:58 97.8 01/15/18 19:56 97.8 80 18 104/59 96 Room Air 97.8 01/15/18 18:00 97.3 60 18 97/56 98 Room Air 97.3 01/15/18 12:47 97.2 01/15/18 12:17 97.2 Intake and Output 01/15/18 01/16/18 19:00 07:00 Intake Total 600 ml Balance 600 ml Intake Oral 600 ml Laboratory Tests 01/16/18 05:30: White Blood Count 3.9L, Red Blood Count 4.51L, Hemoglobin 12.5L, Hematocrit 39.9L, Mean Corpuscular Volume 89, Mean Corpuscular Hemoglobin 27.7, Mean Corpuscular Hemoglobin Concent 31.3L, Red Cell Distribution Width 18.6H, Platelet Count 96L, Mean Platelet Volume 8.3, Neutrophils (%) (Auto) , Lymphocytes (%) (Auto) , Monocytes (%) (Auto) , Eosinophils (%) (Auto) , Basophils (%) (Auto) , Differential Total Cells Counted 100, Neutrophils % ( Manual) 59, Lymphocytes % (Manual) 28, Monocytes % (Manual) 9, Eosinophils % ( Manual) 4H, Basophils % (Manual) 0, Band Neutrophils 0, Platelet Estimate DecreasedL, Platelet Morphology Normal, Anisocytosis 1+, Sodium Level 135L, Potassium Level 5.9H, Chloride Level 95L, Carbon Dioxide Level 27, Anion Gap 13 , Blood Urea Nitrogen 74H, Creatinine 11.6H, Estimat Glomerular Filtration Rate 5.6, Glucose Level 64L, Calcium Level 8.9, Total Bilirubin 0.8, Aspartate Amino Transf (AST/SGOT) 20, Alanine Aminotransferase (ALT/SGPT) 16, Alkaline Phosphatase 183H, Total Protein 7.9, Albumin 3.4, Globulin 4.5, Albumin/ Globulin Ratio 0.8L 01/16/18 05:35: Phosphorus Level 7.6H Height (Feet): 6 Height (Inches): 3.00 Weight (Pounds): 194 General Appearance: no apparent distress Objective PE not change RALEIGH VAZ Jan 16, 2018 12:14
--- NOTE | 2018-01-16 12:28 | General Surgery Progress Note ---
General Surgery-Progress Note Subjective Additional Comments no acute events. doing well. comfortable. resting. Objective Last 24 Hour Vital Signs Date Time Temp Pulse Resp B/P (MAP) Pulse Ox O2 Delivery O2 Flow Rate FiO2 01/16/18 09:53 65 116/71 01/16/18 08:00 97.9 65 18 116/71 95 97.9 01/16/18 04:00 98.0 78 19 121/77 98 Room Air 98.0 01/15/18 19:58 97.8 01/15/18 19:56 97.8 80 18 104/59 96 Room Air 97.8 01/15/18 18:00 97.3 60 18 97/56 98 Room Air 97.3 01/15/18 12:47 97.2 I&O Intake and Output 01/15/18 01/16/18 19:00 07:00 Intake Total 600 ml Balance 600 ml Intake Oral 600 ml Dressing: dry Wound: clean, dry Drains: none Cardiovascular: RSR Respiratory: clear Abdomen: soft, non-tender Extremities: cyanosis, no edema Laboratory Tests Test 01/16/18 05:30 01/16/18 05:35 White Blood Count 3.9 K/UL (4.8-10.8) L Red Blood Count 4.51 M/UL (4.70-6.10) L Hemoglobin 12.5 G/DL (14.2-18.0) L Hematocrit 39.9 % (42.0-52.0) L Mean Corpuscular Volume 89 FL (80-99) Mean Corpuscular Hemoglobin 27.7 PG (27.0-31.0) Mean Corpuscular Hemoglobin Concent 31.3 G/DL (32.0-36.0) L Red Cell Distribution Width 18.6 % (11.6-14.8) H Platelet Count 96 K/UL (150-450) L Mean Platelet Volume 8.3 FL (6.5-10.1) Neutrophils (%) (Auto) % (45.0-75.0) Lymphocytes (%) (Auto) % (20.0-45.0) Monocytes (%) (Auto) % (1.0-10.0) Eosinophils (%) (Auto) % (0.0-3.0) Basophils (%) (Auto) % (0.0-2.0) Differential Total Cells Counted 100 Neutrophils % (Manual) 59 % (45-75) Lymphocytes % (Manual) 28 % (20-45) Monocytes % (Manual) 9 % (1-10) Eosinophils % (Manual) 4 % (0-3) H Basophils % (Manual) 0 % (0-2) Band Neutrophils 0 % (0-8) Platelet Estimate Decreased L Platelet Morphology Normal Anisocytosis 1+ Sodium Level 135 MMOL/L (136-145) L Potassium Level 5.9 MMOL/L (3.5-5.1) H Chloride Level 95 MMOL/L (98-107) L Carbon Dioxide Level 27 MMOL/L (21-32) Anion Gap 13 mmol/L (5-15) Blood Urea Nitrogen 74 mg/dL (7-18) H Creatinine 11.6 MG/DL (0.55-1.30) H Estimat Glomerular Filtration Rate 5.6 mL/min (>60) Glucose Level 64 MG/DL (74-106) L Calcium Level 8.9 MG/DL (8.5-10.1) Total Bilirubin 0.8 MG/DL (0.2-1.0) Aspartate Amino Transf (AST/SGOT) 20 U/L (15-37) Alanine Aminotransferase (ALT/SGPT) 16 U/L (12-78) Alkaline Phosphatase 183 U/L (46-116) H Total Protein 7.9 G/DL (6.4-8.2) Albumin 3.4 G/DL (3.4-5.0) Globulin 4.5 g/dL Albumin/Globulin Ratio 0.8 (1.0-2.7) L Phosphorus Level 7.6 MG/DL (2.5-4.9) H Plan Problems: (1) Peripheral vascular disease Assessment & Plan: 52M with long history of known peripheral vascular disease and vasculopathy. Presents with chronic distal left to and finger pain. has chronic skin changes at toes and fingers. on left hand nails have come off and distal vasculopathy noted. no acute changes. on left foot prior amputation and 2nd toe with chronic changes and ulcer noted. no acute process seen. likely has worsening peripheral vascular disease. no acute intervention needed. no signs of acute infection. needs to follow with his vascular surgeon for angiography. may benefit from angioplasty or interventions if indicated/necessary. -pending MRI to evaluate for distal foot osteo at second toe. -no acute surgical intervention necessary -will monitor exam. thank you for this consult. will follow with Hermilo Thompson Jan 16, 2018 12:28
--- NOTE | 2018-01-16 12:30 | Diagnostic Imaging Report ---
Indication: Left second toe soft tissue wound Technique: Sagittal, axial, and coronal T1 and fast spin echo and fast spin echo STIR images were obtained of the left forefoot Comparison: Reference made to plain radiographs dated 01/13/2018 Findings: Exam is limited due to patient motion artifact. There is evidence of soft tissue loss at the tip of the second toe. There is circumferential edema of the distal second digit. There is increased STIR signal in the second distal phalanx, with associated decreased T1 signal. There is increased STIR signal in the distal aspect of the second middle phalanx. There may be decreased T1 signal as well; if real best appreciated on the axial images, although the motion artifact somewhat limits assessment. Note drainable fluid collection demonstrated. The patient is status post amputation of the third and fourth digits at the level of the metatarsophalangeal joints. No other marrow signal abnormality demonstrated. There is edema of the dorsal subcutaneous fat as well as edema surrounding the plantar tendons. No focal drainable collections demonstrated. Impression: Positive for evidence of osteomyelitis of the second distal phalanx and likely the head of the second middle phalanx Soft tissue edema, as described, may indicate cellulitis. Correlate with clinical findings
[2018-01-16 12:31] VITALS: BP 136/83
[2018-01-16] MEDS: DiphenhydrAMINE 50mg/ml Inj IVP PRN ×2 (12:32→18:45)
--- NOTE | 2018-01-16 18:38 | Infectious Diseases Prog Note ---
Assessment/Plan Assessment/Plan PVD s/p L 3rd and 4th toe amputation Acute on Chronic L hand pain L foot pain, chronic 2nd tip toe ulcer with callous- MRI findings of OM , however clinically not infected -MRI Foot: Positive for evidence of osteomyelitis of the second distal phalanx and likely the head of the second middle phalanx. Soft tissue edema, as described, may indicate cellulitis. Correlate with clinical findings -L hand: No acute bony trauma. Postsurgical changes, as described. No definite plain radiographic evidence of osteomyelitis. -L foot: No acute bony trauma. Postsurgical changes.No plain radiographic evidence of osteomyelitis. -no infectious process at present Afebrile, no leukocytosis -mild leukopenia probably due to HIV HIV -?CD4, VL HLD Asthma HTN GERD CAD PVD hx pericardial effusion ESRD on HD TTSat w/ thrombose R upper arm AV graft, on kidney transplant list Seizure disorder syncope Plan: -Continue to monitor off abx -recommend bone biopsy for cultures and path -A. duplex -Continue ARV : Darunavir, Dolutegravir and Ritonavir -f/u HIV, CD4 -Vascular surg eval -f/u cx -Monitor CBC/BMP, temperatures Subjective Allergies: Coded Allergies: FLUTICASONE (Unverified Allergy, Unknown, 02/23/17) LEVOFLOXACIN (Unverified Allergy, Unknown, 08/22/14) MORPHINE (Unverified Allergy, Unknown, 02/23/17) Uncoded Allergies: nasal spray (Allergy, Unknown, 07/03/15) Subjective afebrile leukopenia off abx Objective Vital Signs Last 24 Hour Vital Signs Date Time Temp Pulse Resp B/P (MAP) Pulse Ox O2 Delivery O2 Flow Rate FiO2 01/16/18 13:03 97.5 01/16/18 12:33 97.5 01/16/18 12:31 97.5 82 19 136/83 94 97.5 01/16/18 09:53 65 116/71 01/16/18 08:00 97.9 65 18 116/71 95 97.9 01/16/18 04:00 98.0 78 19 121/77 98 Room Air 98.0 01/15/18 19:58 97.8 01/15/18 19:56 97.8 80 18 104/59 96 Room Air 97.8 Height (Feet): 6 Height (Inches): 3.00 Weight (Pounds): 194 Objective General Appearance: well appearing, alert, Chronically Ill Head: atraumatic ENT: normal ENT inspection, hearing grossly normal, normal voice Neck: normal inspection, full range of motion, supple, no bony tend Respiratory: normal inspection, lungs clear, normal breath sounds, no respiratory distress, no retraction, no wheezing Cardiovascular : regular rate, rhythm Gastrointestinal: normal inspection, normal bowel sounds, non tender, soft, no guarding, no hernia Genitourinary: no CVA tenderness Musculoskeletal: other - discoloration and atrophy to left hand digits with some distal dark discoloration Neurologic: normal inspection, alert, oriented x3, responsive Skin: other - discoloration to left hand digits with some dark discoloration, pulse present to left hand graft, left foot discoloration 2nd toe Laboratory Tests Test 01/16/18 05:30 01/16/18 05:35 White Blood Count 3.9 K/UL (4.8-10.8) L Red Blood Count 4.51 M/UL (4.70-6.10) L Hemoglobin 12.5 G/DL (14.2-18.0) L Hematocrit 39.9 % (42.0-52.0) L Mean Corpuscular Volume 89 FL (80-99) Mean Corpuscular Hemoglobin 27.7 PG (27.0-31.0) Mean Corpuscular Hemoglobin Concent 31.3 G/DL (32.0-36.0) L Red Cell Distribution Width 18.6 % (11.6-14.8) H Platelet Count 96 K/UL (150-450) L Mean Platelet Volume 8.3 FL (6.5-10.1) Neutrophils (%) (Auto) % (45.0-75.0) Lymphocytes (%) (Auto) % (20.0-45.0) Monocytes (%) (Auto) % (1.0-10.0) Eosinophils (%) (Auto) % (0.0-3.0) Basophils (%) (Auto) % (0.0-2.0) Differential Total Cells Counted 100 Neutrophils % (Manual) 59 % (45-75) Lymphocytes % (Manual) 28 % (20-45) Monocytes % (Manual) 9 % (1-10) Eosinophils % (Manual) 4 % (0-3) H Basophils % (Manual) 0 % (0-2) Band Neutrophils 0 % (0-8) Platelet Estimate Decreased L Platelet Morphology Normal Anisocytosis 1+ Sodium Level 135 MMOL/L (136-145) L Potassium Level 5.9 MMOL/L (3.5-5.1) H Chloride Level 95 MMOL/L (98-107) L Carbon Dioxide Level 27 MMOL/L (21-32) Anion Gap 13 mmol/L (5-15) Blood Urea Nitrogen 74 mg/dL (7-18) H Creatinine 11.6 MG/DL (0.55-1.30) H Estimat Glomerular Filtration Rate 5.6 mL/min (>60) Glucose Level 64 MG/DL (74-106) L Calcium Level 8.9 MG/DL (8.5-10.1) Total Bilirubin 0.8 MG/DL (0.2-1.0) Aspartate Amino Transf (AST/SGOT) 20 U/L (15-37) Alanine Aminotransferase (ALT/SGPT) 16 U/L (12-78) Alkaline Phosphatase 183 U/L (46-116) H Total Protein 7.9 G/DL (6.4-8.2) Albumin 3.4 G/DL (3.4-5.0) Globulin 4.5 g/dL Albumin/Globulin Ratio 0.8 (1.0-2.7) L Phosphorus Level 7.6 MG/DL (2.5-4.9) H Current Medications Medications (Trade) Dose Ordered Sig/Anum Route PRN Reason Start Time Stop Time Status Last Admin Dose Admin Acetaminophen (Tylenol) 650 mg Q4H PRN ORAL Mild Pain/Temp > 100.5 01/13/18 08:15 02/12/18 08:14 Apixaban (Eliquis) 2.5 mg Q12HR ORAL 01/13/18 21:00 02/12/18 20:59 01/16/18 09:55 Aspirin (ASA) 81 mg DAILY ORAL 01/13/18 09:00 02/12/18 08:59 01/16/18 09:52 Atenolol (Tenormin) 50 mg DAILY ORAL 01/13/18 09:00 02/12/18 08:59 01/16/18 09:53 Chlorhexidine Gluconate (Yumiko-Hex 2%) 1 applic DAILY@1999 TOPIC 01/16/18 20:00 02/15/18 19:59 Cinacalcet (Sensipar) 60 mg DAILY ORAL 01/13/18 09:00 02/12/18 08:59 01/16/18 10:01 Darunavir (Prezista) 800 mg DAILY ORAL 01/13/18 20:00 02/12/18 19:59 01/16/18 09:54 Diphenhydramine HCl (Benadryl) 25 mg Q4H PRN IVP Itching 01/13/18 08:15 02/12/18 08:14 01/16/18 12:32 Gabapentin (Neurontin) 300 mg Q12HR ORAL 01/13/18 09:00 02/12/18 08:59 01/16/18 09:53 Hydromorphone HCl (Dilaudid) 1 mg Q4H PRN IVP Severe Pain (Pain Scale 7-10) 01/16/18 03:00 01/23/18 02:59 01/16/18 12:33 Lorazepam (Ativan 2mg/ml 1ml) 0.5 mg ONCE PRN IV 30 mins prior to MRI 01/16/18 08:00 01/16/18 20:00 01/16/18 08:42 Ondansetron HCl (Zofran) 4 mg Q4H PRN IVP Nausea & Vomiting 01/15/18 09:30 02/14/18 09:29 01/16/18 03:31 Patient Own Medication (Patient's Own Med) 1 ea DAILY@2099 ORAL 01/14/18 21:00 02/13/18 20:59 01/15/18 20:00 Pravastatin Sodium (Pravachol) 20 mg BEDTIME ORAL 01/13/18 21:00 02/12/18 20:59 01/15/18 20:02 Raltegravir (Isentress) 400 mg DAILY@2099 ORAL 01/14/18 21:00 02/13/18 20:59 01/15/18 19:58 Sevelamer Carbonate (Renvela) 2,400 mg THREE TIMES A DAY ORAL 01/16/18 13:00 02/15/18 12:59 01/16/18 16:49 Sari Duncan M.D. Jan 16, 2018 18:37
[2018-01-16 20:08] VITALS: BP 115/66
[2018-01-16] MEDS: Isentress 400mg tab ORAL SCH (21:32)
[2018-01-16] MEDS: Dyna-Hex 2% Top Sol 2oz TOPIC SCH (21:34)
[2018-01-17] VITALS (8 sets, daily range): BP systolic 97–128; BP diastolic 50–78
[2018-01-17] MEDS: DiphenhydrAMINE 50mg/ml Inj IVP PRN ×5 (00:02→21:48)
[2018-01-17] MEDS: HYDROmorphone 1mg/ml Carpuject IVP PRN ×5 (00:11→21:49)
[2018-01-17] MEDS: Eliquis 2.5mg tablet ORAL SCH ×2 (09:00→21:00)
[2018-01-17] MEDS: Aspirin Baby 81mg ORAL SCH (09:05)
[2018-01-17] MEDS: Sensipar 30mg Tab ORAL SCH (09:06)
--- NOTE | 2018-01-17 13:37 | General Surgery Progress Note ---
General Surgery-Progress Note Subjective Symptoms: improved Additional Comments doing well. note dressings on hand and when asked patient states that he was pulling at this skin on his distal finger and caused bleeding. Objective Last 24 Hour Vital Signs Date Time Temp Pulse Resp B/P (MAP) Pulse Ox O2 Delivery O2 Flow Rate FiO2 01/17/18 12:00 97.4 64 14 114/78 94 97.4 01/17/18 09:06 62 128/78 01/17/18 05:33 97.2 01/17/18 04:35 97.2 54 20 124/77 97 Room Air 97.2 01/17/18 04:00 Room Air 01/17/18 00:18 97.2 96 20 115/77 93 Room Air 97.2 01/17/18 00:00 Room Air 01/16/18 20:08 97.3 56 20 115/66 99 Room Air 97.3 01/16/18 20:00 Room Air 01/16/18 19:15 97.5 01/16/18 18:45 97.5 I&O Intake and Output 01/16/18 01/17/18 19:00 07:00 Intake Total 480 ml 480 ml Balance 480 ml 480 ml Intake Oral 480 ml 480 ml # Bowel Movements 1 Dressing: dry Wound: clean, dry Drains: none Cardiovascular: RSR Respiratory: clear Abdomen: soft, flat, non-tender Extremities: cyanosis Laboratory Tests Test 01/17/18 08:45 Erythrocyte Sedimentation Rate 25 MM/HR (0-20) H Plan Problems: (1) Peripheral vascular disease Assessment & Plan: 52M with long history of known peripheral vascular disease and vasculopathy. Presents with chronic distal left to and finger pain. has chronic skin changes at toes and fingers. on left hand nails have come off and distal vasculopathy noted. no acute changes. on left foot prior amputation and 2nd toe with chronic changes and ulcer noted. no acute process seen. likely has worsening peripheral vascular disease. no acute intervention needed. no signs of acute infection. needs to follow with his vascular surgeon for angiography. may benefit from angioplasty or interventions if indicated/necessary. MRI FINDINGS: Positive for evidence of osteomyelitis of the second distal phalanx and likely the head of the second middle phalanx -should have amputation of second toe. given vascular history and significant peripheral vascular disease would recommend to be done by his Vascular surgeon. can be done as an outpatient given that this is chronic with no acute active infectious process. -okay to d/c from surgical standpoint. patient states that he has appointment soon with his vascular surgeon for new HD fistula vs graft so he will discuss peripheral vascular disease and amputation at that time. thank you for this consult. will follow with Hermilo Thompson Jan 17, 2018 13:37
--- NOTE | 2018-01-17 15:05 | Nephrology Progress Note ---
Assessment/Plan Problem List: (1) ESRD on hemodialysis Assessment -. Human immunodeficiency virus. -. End-stage renal disease. on HD T.Th.Sat -. Hypertension. -. Asthma. -. Atrial fibrillation. -. Gastroesophageal reflux disease. -. Hypertension. -. Coronary artery disease. -. History of pericardial effusion. -. Peripheral vascular disease. Plan Plan: kayexelate 01/16 increase phos binder Arrange for HD 01/17 Per PMD Subjective ROS Limited/Unobtainable: No Constitutional: Reports: malaise Objective Objective Last 24 Hour Vital Signs Date Time Temp Pulse Resp B/P (MAP) Pulse Ox O2 Delivery O2 Flow Rate FiO2 01/17/18 12:00 97.4 64 14 114/78 94 97.4 01/17/18 09:06 62 128/78 01/17/18 05:33 97.2 01/17/18 04:35 97.2 54 20 124/77 97 Room Air 97.2 01/17/18 04:00 Room Air 01/17/18 00:18 97.2 96 20 115/77 93 Room Air 97.2 01/17/18 00:00 Room Air 01/16/18 20:08 97.3 56 20 115/66 99 Room Air 97.3 01/16/18 20:00 Room Air 01/16/18 19:15 97.5 01/16/18 18:45 97.5 Intake and Output 01/16/18 01/17/18 19:00 07:00 Intake Total 480 ml 480 ml Balance 480 ml 480 ml Intake Oral 480 ml 480 ml # Bowel Movements 1 Laboratory Tests 01/17/18 08:45: Erythrocyte Sedimentation Rate 25H Height (Feet): 6 Height (Inches): 3.00 Weight (Pounds): 212 General Appearance: no apparent distress Objective PE not change RALEIGH VAZ Jan 17, 2018 15:05
--- NOTE | 2018-01-17 17:04 | Internal Med Progress Note ---
Subjective Date of Service: Jan 17, 2018 Physician Name Richter,Krystian Attending Physician Nabeel Hoff MD Current Medications Medications (Trade) Dose Ordered Sig/Anum Route PRN Reason Start Time Stop Time Status Last Admin Dose Admin Acetaminophen (Tylenol) 650 mg Q4H PRN ORAL Mild Pain/Temp > 100.5 01/13/18 08:15 02/12/18 08:14 Apixaban (Eliquis) 2.5 mg Q12HR ORAL 01/13/18 21:00 02/12/18 20:59 01/16/18 09:55 Aspirin (ASA) 81 mg DAILY ORAL 01/13/18 09:00 02/12/18 08:59 01/17/18 09:05 Atenolol (Tenormin) 50 mg DAILY ORAL 01/13/18 09:00 02/12/18 08:59 01/17/18 09:06 Chlorhexidine Gluconate (Yumiko-Hex 2%) 1 applic DAILY@1999 TOPIC 01/16/18 20:00 02/15/18 19:59 01/16/18 21:34 Cinacalcet (Sensipar) 60 mg DAILY ORAL 01/13/18 09:00 02/12/18 08:59 01/17/18 09:06 Darunavir (Prezista) 800 mg DAILY ORAL 01/13/18 20:00 02/12/18 19:59 01/17/18 09:05 Diphenhydramine HCl (Benadryl) 25 mg Q4H PRN IVP Itching 01/13/18 08:15 02/12/18 08:14 01/17/18 16:10 Gabapentin (Neurontin) 300 mg Q12HR ORAL 01/13/18 09:00 02/12/18 08:59 01/17/18 09:06 Hydromorphone HCl (Dilaudid) 1 mg Q4H PRN IVP Severe Pain (Pain Scale 7-10) 01/16/18 03:00 01/23/18 02:59 01/17/18 12:00 Ondansetron HCl (Zofran) 4 mg Q4H PRN IVP Nausea & Vomiting 01/15/18 09:30 02/14/18 09:29 01/17/18 16:10 Patient Own Medication (Patient's Own Med) 1 ea DAILY@2099 ORAL 01/14/18 21:00 02/13/18 20:59 01/16/18 21:31 Pravastatin Sodium (Pravachol) 20 mg BEDTIME ORAL 01/13/18 21:00 02/12/18 20:59 01/16/18 21:32 Raltegravir (Isentress) 400 mg DAILY@2099 ORAL 01/14/18 21:00 02/13/18 20:59 01/16/18 21:32 Sevelamer Carbonate (Renvela) 2,400 mg THREE TIMES A DAY ORAL 01/16/18 13:00 02/15/18 12:59 01/17/18 13:15 Allergies: Coded Allergies: FLUTICASONE (Unverified Allergy, Unknown, 02/23/17) LEVOFLOXACIN (Unverified Allergy, Unknown, 08/22/14) MORPHINE (Unverified Allergy, Unknown, 02/23/17) Uncoded Allergies: nasal spray (Allergy, Unknown, 07/03/15) ROS Limited/Unobtainable: No Constitutional: Reports: no symptoms HEENT: Reports: no symptoms Cardiovascular: Reports: no symptoms Respiratory: Reports: no symptoms Gastrointestinal/Abdominal: Reports: no symptoms Genitourinary: Reports: no symptoms Neurologic/Psychiatric: Reports: no symptoms Subjective 52 YO M admitted with left toe pain, now osteomyelitis. Cover for Int Juliano-Dr Hoff Objective Last Vital Signs Date Time Temp Pulse Resp B/P (MAP) Pulse Ox O2 Delivery O2 Flow Rate FiO2 01/17/18 15:50 97.3 58 18 107/50 100 97.3 01/17/18 04:35 Room Air Laboratory Tests Test 01/17/18 08:45 Erythrocyte Sedimentation Rate 25 MM/HR (0-20) H Intake and Output 01/16/18 01/17/18 19:00 07:00 Intake Total 480 ml 480 ml Balance 480 ml 480 ml Intake Oral 480 ml 480 ml # Bowel Movements 1 Objective General Appearance: WD/WN, no apparent distress, alert EENT: PERRL/EOMI, normal ENT inspection Neck: non-tender, normal alignment, supple, normal inspection Cardiovascular: normal peripheral pulses, normal rate, regular rhythm, no gallop/murmur, no JVD Respiratory/Chest: chest wall non-tender, lungs clear, normal breath sounds, no respiratory distress, no accessory muscle use Abdomen: normal bowel sounds, non tender, soft, no organomegaly, no mass Extremities: normal range of motion 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 Needs bone biopsy per ID. See podiratry note (3) HIV (human immunodeficiency virus infection) Assessment & Plan: Continue HAART. Await HIV Viral load. See ID note. (4) HTN (hypertension) (5) DVT (deep venous thrombosis) (6) ESRD (end stage renal disease) Assessment & Plan: See nephrology note. hemodialysis today 01/17/18. (7) Coronary artery disease (8) Atrial fibrillation Status: not improved KRYSTIAN RICHTER Jan 17, 2018 17:04
--- NOTE | 2018-01-17 17:25 | Cardiac Electrophysiology PN ---
Assessment/Plan Assessment/Plan 1. Hypertension.On hemodialysis and atenolol 50 mg daily . 2. Chronic atrial fibrillation. Rate controlled on atenolol 50 mg daily and Eliquis 2.5 mg b.i.d. 3. End-stage renal disease, on hemodialysis. 4. HIV, on Isentress and Prezista. 5. Severe peripheral vascular disease and gangrene of the toe. Echocardiogram and nuclear stress test pending May need toe amputation. DW Dr Guillory and Dr Crane Subjective Subjective Upset that his toe may need to be amputated.No chest pain. Off tele. Objective Last 24 Hour Vital Signs Date Time Temp Pulse Resp B/P (MAP) Pulse Ox O2 Delivery O2 Flow Rate FiO2 01/17/18 15:50 97.3 58 18 107/50 100 97.3 01/17/18 12:00 97.4 64 14 114/78 94 97.4 01/17/18 09:06 62 128/78 01/17/18 05:33 97.2 01/17/18 04:35 97.2 54 20 124/77 97 Room Air 97.2 01/17/18 04:00 Room Air 01/17/18 00:18 97.2 96 20 115/77 93 Room Air 97.2 01/17/18 00:00 Room Air 01/16/18 20:08 97.3 56 20 115/66 99 Room Air 97.3 01/16/18 20:00 Room Air 01/16/18 19:15 97.5 01/16/18 18:45 97.5 Intake and Output 01/16/18 01/17/18 19:00 07:00 Intake Total 480 ml 480 ml Balance 480 ml 480 ml Intake Oral 480 ml 480 ml # Bowel Movements 1 Laboratory Tests Test 01/17/18 08:45 Erythrocyte Sedimentation Rate 25 MM/HR (0-20) H Objective HEAD AND NECK: Shows no JVD. LUNGS: Clear. CARDIOVASCULAR: Shows regular S1 and S2. No gallop or murmur. ABDOMEN: Soft. EXTREMITIES: A 1+ pitting edema and gangrene of left mid toe as well as prior amputation. FRANKY SRIVASTAVA Jan 17, 2018 17:25
[2018-01-17] MEDS: Lexiscan 0.4mg/5ml syringe IV SCH (17:30)
--- NOTE | 2018-01-17 17:49 | Podiatric Progress Note ---
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 Patient is not a good candidate for any pedal procedures due to vascular status. Concern that biopsy would lead to gangrenous toe. D/W ID for broad spectrum coverage for 6 wks. If fails abx will then consider amp. 2) PAD noted on x-ray. Patient is under the care of Dr Lancaster, Vascular surgery at [facility]. Advised patient to f/u with Dr Lancaster for vasc optimization. 3) Cont wound care as ordered 4) Patient being followed by Dr Talavera for Podiatry at [facility]. Advised to either follow up with him or I gave patient my card to follow up with me if he prefers. Subjective Allergies: Coded Allergies: FLUTICASONE (Unverified Allergy, Unknown, 02/23/17) LEVOFLOXACIN (Unverified Allergy, Unknown, 08/22/14) MORPHINE (Unverified Allergy, Unknown, 02/23/17) Uncoded Allergies: nasal spray (Allergy, Unknown, 07/03/15) Subjective Patient does not want to lose any more toes. Objective Exam Last 24 Hour Vital Signs Date Time Temp Pulse Resp B/P (MAP) Pulse Ox O2 Delivery O2 Flow Rate FiO2 01/17/18 15:50 97.3 58 18 107/50 100 97.3 01/17/18 12:00 97.4 64 14 114/78 94 97.4 01/17/18 09:06 62 128/78 01/17/18 05:33 97.2 01/17/18 04:35 97.2 54 20 124/77 97 Room Air 97.2 01/17/18 04:00 Room Air 01/17/18 00:18 97.2 96 20 115/77 93 Room Air 97.2 01/17/18 00:00 Room Air 01/16/18 20:08 97.3 56 20 115/66 99 Room Air 97.3 01/16/18 20:00 Room Air 01/16/18 19:15 97.5 01/16/18 18:45 97.5 Laboratory Tests Test 01/17/18 08:45 Erythrocyte Sedimentation Rate 25 MM/HR (0-20) H Microbiology Date/Time Source Procedure Growth Status 01/13/18 08:35 Nasal Nares MRSA Culture - Final NO METHICILLIN RESISTANT STAPH AUREUS... Complete Dermatological Dermatological Narrative left 2nd toe edematous, distal tip has scant blood. No purulence Antoni Crane DPM Jan 17, 2018 17:49
--- NOTE | 2018-01-17 18:24 | Infectious Diseases Prog Note ---
Assessment/Plan Assessment/Plan PVD s/p L 3rd and 4th toe amputation Acute on Chronic L hand pain L foot pain, chronic 2nd tip toe ulcer with callous- MRI findings of OM , however clinically not infected, Mildly elevated ESR/CRP. Major component of vascular disease. -MRI Foot: Positive for evidence of osteomyelitis of the second distal phalanx and likely the head of the second middle phalanx. Soft tissue edema, as described, may indicate cellulitis. Correlate with clinical findings -L hand: No acute bony trauma. Postsurgical changes, as described. No definite plain radiographic evidence of osteomyelitis. -L foot: No acute bony trauma. Postsurgical changes.No plain radiographic evidence of osteomyelitis. -no infectious process at present Afebrile, no leukocytosis -mild leukopenia probably due to HIV HIV -?CD4, VL HLD Asthma HTN GERD CAD PVD hx pericardial effusion ESRD on HD TTSat w/ thrombose R upper arm AV graft, on kidney transplant list Seizure disorder syncope Plan: -As attempt for salvage of 2nd toe, will treat for chronic OM with PO Doxycycline 100mg Bid and PO Augmentin 500mg daily (on HD days will take 2 extra doses, one during HD and one after end of HD) for 42 days -per surgery and podiatry, not recommended to pursue bone biopsy given severe PVD -f/u A. duplex -Continue ARV : Darunavir, Dolutegravir and Ritonavir -f/u HIV, CD4 -Vascular surg eval -f/u cx -Monitor CBC/BMP, temperatures Subjective Allergies: Coded Allergies: FLUTICASONE (Unverified Allergy, Unknown, 02/23/17) LEVOFLOXACIN (Unverified Allergy, Unknown, 08/22/14) MORPHINE (Unverified Allergy, Unknown, 02/23/17) Uncoded Allergies: nasal spray (Allergy, Unknown, 07/03/15) Subjective afebrile leukopenia off abx Objective Vital Signs Last 24 Hour Vital Signs Date Time Temp Pulse Resp B/P (MAP) Pulse Ox O2 Delivery O2 Flow Rate FiO2 01/17/18 15:50 97.3 58 18 107/50 100 97.3 01/17/18 12:00 97.4 64 14 114/78 94 97.4 01/17/18 09:06 62 128/78 01/17/18 05:33 97.2 01/17/18 04:35 97.2 54 20 124/77 97 Room Air 97.2 01/17/18 04:00 Room Air 01/17/18 00:18 97.2 96 20 115/77 93 Room Air 97.2 01/17/18 00:00 Room Air 01/16/18 20:08 97.3 56 20 115/66 99 Room Air 97.3 01/16/18 20:00 Room Air 01/16/18 19:15 97.5 01/16/18 18:45 97.5 Height (Feet): 6 Height (Inches): 3.00 Weight (Pounds): 212 Objective General Appearance: well appearing, alert, Chronically Ill Head: atraumatic ENT: normal ENT inspection, hearing grossly normal, normal voice Neck: normal inspection, full range of motion, supple, no bony tend Respiratory: normal inspection, lungs clear, normal breath sounds, no respiratory distress, no retraction, no wheezing Cardiovascular : regular rate, rhythm Gastrointestinal: normal inspection, normal bowel sounds, non tender, soft, no guarding, no hernia Genitourinary: no CVA tenderness Musculoskeletal: other - discoloration and atrophy to left hand digits with some distal dark discoloration Neurologic: normal inspection, alert, oriented x3, responsive Skin: other - discoloration to left hand digits with some dark discoloration, pulse present to left hand graft, left foot discoloration 2nd toe Laboratory Tests Test 01/17/18 08:45 Erythrocyte Sedimentation Rate 25 MM/HR (0-20) H Current Medications Medications (Trade) Dose Ordered Sig/Anum Route PRN Reason Start Time Stop Time Status Last Admin Dose Admin Acetaminophen (Tylenol) 650 mg Q4H PRN ORAL Mild Pain/Temp > 100.5 01/13/18 08:15 02/12/18 08:14 Apixaban (Eliquis) 2.5 mg Q12HR ORAL 01/13/18 21:00 02/12/18 20:59 01/16/18 09:55 Aspirin (ASA) 81 mg DAILY ORAL 01/13/18 09:00 02/12/18 08:59 01/17/18 09:05 Atenolol (Tenormin) 50 mg DAILY ORAL 01/13/18 09:00 02/12/18 08:59 01/17/18 09:06 Chlorhexidine Gluconate (Yumiko-Hex 2%) 1 applic DAILY@1999 TOPIC 01/16/18 20:00 02/15/18 19:59 01/16/18 21:34 Cinacalcet (Sensipar) 60 mg DAILY ORAL 01/13/18 09:00 02/12/18 08:59 01/17/18 09:06 Darunavir (Prezista) 800 mg DAILY ORAL 01/13/18 20:00 02/12/18 19:59 01/17/18 09:05 Diphenhydramine HCl (Benadryl) 25 mg Q4H PRN IVP Itching 01/13/18 08:15 02/12/18 08:14 01/17/18 16:10 Gabapentin (Neurontin) 300 mg Q12HR ORAL 01/13/18 09:00 02/12/18 08:59 01/17/18 09:06 Hydromorphone HCl (Dilaudid) 1 mg Q4H PRN IVP Severe Pain (Pain Scale 7-10) 01/16/18 03:00 01/23/18 02:59 01/17/18 17:19 Ondansetron HCl (Zofran) 4 mg Q4H PRN IVP Nausea & Vomiting 01/15/18 09:30 02/14/18 09:29 01/17/18 16:10 Patient Own Medication (Patient's Own Med) 1 ea DAILY@2099 ORAL 01/14/18 21:00 02/13/18 20:59 01/16/18 21:31 Pravastatin Sodium (Pravachol) 20 mg BEDTIME ORAL 01/13/18 21:00 02/12/18 20:59 01/16/18 21:32 Raltegravir (Isentress) 400 mg DAILY@2099 ORAL 01/14/18 21:00 02/13/18 20:59 01/16/18 21:32 Regadenoson (Lexiscan) 0.4 mg ONCE IV 01/17/18 17:30 01/18/18 23:59 Sevelamer Carbonate (Renvela) 2,400 mg THREE TIMES A DAY ORAL 01/16/18 13:00 02/15/18 12:59 01/17/18 17:16 Sari Duncan M.D. Jan 17, 2018 18:24
--- NOTE | 2018-01-17 18:52 | Cardiology Report ---
APPROVED REPORT EKG Measurement Heart [id number] Atrial fibrillation Rightward axis Anterior infarct, age undetermined Abnormal ECG
--- NOTE | 2018-01-17 19:32 | Pulmonology Progress Note ---
Assessment/Plan Problems: (1) CHF (congestive heart failure) (2) Asthma (3) ESRD on hemodialysis (4) Peripheral vascular disease (5) Opioid dependence (6) Hypertension (7) Anemia in chronic kidney disease (8) HIV (human immunodeficiency virus infection) Assessment/Plan HD by nephrology HIV w/u in progress Dr. Garza called for podiatry f/u ID recommendations check electrolytes no surgical intervention needed prolonged po abx dc in am after HD symptomatic treatment. Subjective ROS Limited/Unobtainable: No Allergies: Coded Allergies: FLUTICASONE (Unverified Allergy, Unknown, 02/23/17) LEVOFLOXACIN (Unverified Allergy, Unknown, 08/22/14) MORPHINE (Unverified Allergy, Unknown, 02/23/17) Uncoded Allergies: nasal spray (Allergy, Unknown, 07/03/15) Objective Last 24 Hour Vital Signs Date Time Temp Pulse Resp B/P (MAP) Pulse Ox O2 Delivery O2 Flow Rate FiO2 01/17/18 15:50 97.3 58 18 107/50 100 97.3 01/17/18 12:00 97.4 64 14 114/78 94 97.4 01/17/18 09:06 62 128/78 01/17/18 05:33 97.2 01/17/18 04:35 97.2 54 20 124/77 97 Room Air 97.2 01/17/18 04:00 Room Air 01/17/18 00:18 97.2 96 20 115/77 93 Room Air 97.2 01/17/18 00:00 Room Air 01/16/18 20:08 97.3 56 20 115/66 99 Room Air 97.3 01/16/18 20:00 Room Air Intake and Output 01/16/18 01/17/18 19:00 07:00 Intake Total 480 ml 480 ml Balance 480 ml 480 ml Intake Oral 480 ml 480 ml # Bowel Movements 1 Objective General Appearance: WD/WN, no apparent distress Lines, tubes and drains: peripheral HEENT: normocephalic, anicteric Neck: non-tender, normal alignment Respiratory/Chest: chest wall non-tender, clear Cardiovascular/Chest: normal peripheral pulses Abdomen: normal bowel sounds EXt: no C/C/E Laboratory Tests 01/17/18 08:45: Erythrocyte Sedimentation Rate 25H Current Medications Medications (Trade) Dose Ordered Sig/Anum Route PRN Reason Start Time Stop Time Status Last Admin Dose Admin Acetaminophen (Tylenol) 650 mg Q4H PRN ORAL Mild Pain/Temp > 100.5 01/13/18 08:15 02/12/18 08:14 Amoxicillin/ Clavulanate Potassium (Augmentin) 500 mg QHS ORAL 01/17/18 21:00 01/24/18 20:59 Apixaban (Eliquis) 2.5 mg Q12HR ORAL 01/13/18 21:00 02/12/18 20:59 01/16/18 09:55 Aspirin (ASA) 81 mg DAILY ORAL 01/13/18 09:00 02/12/18 08:59 01/17/18 09:05 Atenolol (Tenormin) 50 mg DAILY ORAL 01/13/18 09:00 02/12/18 08:59 01/17/18 09:06 Chlorhexidine Gluconate (Yumiko-Hex 2%) 1 applic DAILY@2000 TOPIC 01/16/18 20:00 02/15/18 19:59 01/16/18 21:34 Cinacalcet (Sensipar) 60 mg DAILY ORAL 01/13/18 09:00 02/12/18 08:59 01/17/18 09:06 Darunavir (Prezista) 800 mg DAILY ORAL 01/13/18 20:00 02/12/18 19:59 01/17/18 09:05 Diphenhydramine HCl (Benadryl) 25 mg Q4H PRN IVP Itching 01/13/18 08:15 02/12/18 08:14 01/17/18 16:10 Doxycycline Monohydrate (Vibramycin) 100 mg EVERY 12 HOURS ORAL 01/17/18 21:00 01/24/18 20:59 Gabapentin (Neurontin) 300 mg Q12HR ORAL 01/13/18 09:00 02/12/18 08:59 01/17/18 09:06 Hydromorphone HCl (Dilaudid) 1 mg Q4H PRN IVP Severe Pain (Pain Scale 7-10) 01/16/18 03:00 01/23/18 02:59 01/17/18 17:19 Ondansetron HCl (Zofran) 4 mg Q4H PRN IVP Nausea & Vomiting 01/15/18 09:30 02/14/18 09:29 01/17/18 16:10 Patient Own Medication (Patient's Own Med) 1 ea DAILY@2099 ORAL 01/14/18 21:00 02/13/18 20:59 01/16/18 21:31 Pravastatin Sodium (Pravachol) 20 mg BEDTIME ORAL 01/13/18 21:00 02/12/18 20:59 01/16/18 21:32 Raltegravir (Isentress) 400 mg DAILY@2099 ORAL 01/14/18 21:00 02/13/18 20:59 01/16/18 21:32 Regadenoson (Lexiscan) 0.4 mg ONCE IV 01/17/18 17:30 01/18/18 23:59 Sevelamer Carbonate (Renvela) 2,400 mg THREE TIMES A DAY ORAL 01/16/18 13:00 02/15/18 12:59 01/17/18 17:16 Srinivasan Patterson MD Jan 17, 2018 19:32
--- NOTE | 2018-01-17 19:32 | Pulmonology Progress Note ---
Assessment/Plan Problems: (1) CHF (congestive heart failure) (2) Asthma (3) ESRD on hemodialysis (4) Peripheral vascular disease (5) Opioid dependence (6) Hypertension (7) Anemia in chronic kidney disease (8) HIV (human immunodeficiency virus infection) Assessment/Plan HD by nephrology f/u cxr HIV w/u in progress Dr. Garza called for podiatry f/u ID recommendations check electrolytes symptomatic treatment. d/w surgeon and ID Subjective ROS Limited/Unobtainable: No Interval Events: late note for 01/16 Allergies: Coded Allergies: FLUTICASONE (Unverified Allergy, Unknown, 02/23/17) LEVOFLOXACIN (Unverified Allergy, Unknown, 08/22/14) MORPHINE (Unverified Allergy, Unknown, 02/23/17) Uncoded Allergies: nasal spray (Allergy, Unknown, 07/03/15) Objective Last 24 Hour Vital Signs Date Time Temp Pulse Resp B/P (MAP) Pulse Ox O2 Delivery O2 Flow Rate FiO2 01/17/18 15:50 97.3 58 18 107/50 100 97.3 01/17/18 12:00 97.4 64 14 114/78 94 97.4 01/17/18 09:06 62 128/78 01/17/18 05:33 97.2 01/17/18 04:35 97.2 54 20 124/77 97 Room Air 97.2 01/17/18 04:00 Room Air 01/17/18 00:18 97.2 96 20 115/77 93 Room Air 97.2 01/17/18 00:00 Room Air 01/16/18 20:08 97.3 56 20 115/66 99 Room Air 97.3 01/16/18 20:00 Room Air Intake and Output 01/16/18 01/17/18 19:00 07:00 Intake Total 480 ml 480 ml Balance 480 ml 480 ml Intake Oral 480 ml 480 ml # Bowel Movements 1 Objective General Appearance: WD/WN, no apparent distress Lines, tubes and drains: peripheral HEENT: normocephalic, anicteric Neck: non-tender, normal alignment Respiratory/Chest: chest wall non-tender, clear Cardiovascular/Chest: normal peripheral pulses Abdomen: normal bowel sounds EXt: no C/C/E Laboratory Tests 01/17/18 08:45: Erythrocyte Sedimentation Rate 25H Current Medications Medications (Trade) Dose Ordered Sig/Anum Route PRN Reason Start Time Stop Time Status Last Admin Dose Admin Acetaminophen (Tylenol) 650 mg Q4H PRN ORAL Mild Pain/Temp > 100.5 01/13/18 08:15 02/12/18 08:14 Amoxicillin/ Clavulanate Potassium (Augmentin) 500 mg QHS ORAL 01/17/18 21:00 01/24/18 20:59 Apixaban (Eliquis) 2.5 mg Q12HR ORAL 01/13/18 21:00 02/12/18 20:59 01/16/18 09:55 Aspirin (ASA) 81 mg DAILY ORAL 01/13/18 09:00 02/12/18 08:59 01/17/18 09:05 Atenolol (Tenormin) 50 mg DAILY ORAL 01/13/18 09:00 02/12/18 08:59 01/17/18 09:06 Chlorhexidine Gluconate (Yumiko-Hex 2%) 1 applic DAILY@2000 TOPIC 01/16/18 20:00 02/15/18 19:59 01/16/18 21:34 Cinacalcet (Sensipar) 60 mg DAILY ORAL 01/13/18 09:00 02/12/18 08:59 01/17/18 09:06 Darunavir (Prezista) 800 mg DAILY ORAL 01/13/18 20:00 02/12/18 19:59 01/17/18 09:05 Diphenhydramine HCl (Benadryl) 25 mg Q4H PRN IVP Itching 01/13/18 08:15 02/12/18 08:14 01/17/18 16:10 Doxycycline Monohydrate (Vibramycin) 100 mg EVERY 12 HOURS ORAL 01/17/18 21:00 01/24/18 20:59 Gabapentin (Neurontin) 300 mg Q12HR ORAL 01/13/18 09:00 02/12/18 08:59 01/17/18 09:06 Hydromorphone HCl (Dilaudid) 1 mg Q4H PRN IVP Severe Pain (Pain Scale 7-10) 01/16/18 03:00 01/23/18 02:59 01/17/18 17:19 Ondansetron HCl (Zofran) 4 mg Q4H PRN IVP Nausea & Vomiting 3/18/18 09:30 02/14/18 09:29 01/17/18 16:10 Patient Own Medication (Patient's Own Med) 1 ea DAILY@2100 ORAL 01/14/18 21:00 02/13/18 20:59 01/16/18 21:31 Pravastatin Sodium (Pravachol) 20 mg BEDTIME ORAL 01/13/18 21:00 02/12/18 20:59 01/16/18 21:32 Raltegravir (Isentress) 400 mg DAILY@2099 ORAL 01/14/18 21:00 02/13/18 20:59 01/16/18 21:32 Regadenoson (Lexiscan) 0.4 mg ONCE IV 01/17/18 17:30 01/18/18 23:59 Sevelamer Carbonate (Renvela) 2,400 mg THREE TIMES A DAY ORAL 01/16/18 13:00 02/15/18 12:59 01/17/18 17:16 Srinivasan Patterson MD Jan 17, 2018 19:32
[2018-01-17] MEDS: Dyna-Hex 2% Top Sol 2oz TOPIC SCH (21:45)
[2018-01-17] MEDS: Isentress 400mg tab ORAL SCH (21:45)
[2018-01-18 00:14] VITALS: BP 109/65
[2018-01-18] MEDS: DiphenhydrAMINE 50mg/ml Inj IVP PRN ×4 (03:23→20:16)
[2018-01-18] MEDS: HYDROmorphone 1mg/ml Carpuject IVP PRN ×4 (03:24→20:16)
[2018-01-18 04:32] VITALS: BP 108/77
[2018-01-18 07:37] LABS: MEAN CORPUSCULAR VOLUME 89 FL (80-99); PLATELET COUNT 77 K/UL (150-450); RED BLOOD COUNT 4.18 M/UL (4.70-6.10); WHITE BLOOD COUNT 2.6 K/UL (4.8-10.8)
[2018-01-18 07:53] LABS: ALANINE AMINOTRANSFERASE 11 U/L (12-78); ALBUMIN 3.2 G/DL (3.4-5.0); ALBUMIN/GLOBULIN RATIO 0.7 (1.0-2.7); ALKALINE PHOSPHATASE 172 U/L (46-116); ANION GAP 9 mmol/L (5-15); ASPARTATE AMINO TRANSFERASE 20 U/L (15-37); BILIRUBIN,TOTAL 0.8 MG/DL (0.2-1.0); BLOOD UREA NITROGEN 54 mg/dL (7-18); CALCIUM 8.5 MG/DL (8.5-10.1); CARBON DIOXIDE 33 MMOL/L (21-32); CHLORIDE 98 MMOL/L (98-107); CREATININE 9.8 MG/DL (0.55-1.30); POTASSIUM 4.6 MMOL/L (3.5-5.1); SODIUM 140 MMOL/L (136-145)
[2018-01-18 08:00] VITALS: BP 94/52
[2018-01-18] MEDS: Eliquis 2.5mg tablet ORAL SCH ×3 (08:56→20:08)
[2018-01-18] MEDS: Aspirin Baby 81mg ORAL SCH ×2 (08:57→09:15)
[2018-01-18] MEDS: Sensipar 30mg Tab ORAL SCH (08:57)
[2018-01-18 12:00] VITALS: BP 109/60
--- NOTE | 2018-01-18 12:25 | General Surgery Progress Note ---
General Surgery-Progress Note Subjective Additional Comments doing well. no acute events. Objective Last 24 Hour Vital Signs Date Time Temp Pulse Resp B/P (MAP) Pulse Ox O2 Delivery O2 Flow Rate FiO2 01/18/18 09:00 57 94/52 01/18/18 08:00 98.1 55 19 94/52 98 98.1 01/18/18 04:32 93 Room Air 01/18/18 04:32 97.6 51 20 108/77 93 Room Air 97.6 01/18/18 03:54 97.2 01/18/18 03:24 97.2 01/18/18 00:14 97.2 59 20 109/65 91 Room Air 97.2 01/17/18 22:12 Room Air 01/17/18 22:07 Room Air 01/17/18 22:04 98.0 56 16 128/68 Room Air 98.0 01/17/18 21:49 98.1 01/17/18 20:11 126/65 01/17/18 19:46 95 Room Air 01/17/18 19:33 98.1 53 20 97/58 95 Room Air 98.1 01/17/18 18:00 98.2 53 16 113/64 Room Air 98.2 01/17/18 15:50 97.3 58 18 107/50 100 97.3 I&O Intake and Output 01/17/18 01/18/18 19:00 07:00 Output Total 3000 ml Balance -3000 ml Hemodialysis UF 3000 ml # Voids 3 Wound: clean, dry, intact Drains: none Cardiovascular: RSR Respiratory: clear Abdomen: soft, flat, non-tender, present bowel sounds Extremities: tenderness, cyanosis, no edema Laboratory Tests Test 01/18/18 06:15 White Blood Count 2.6 K/UL (4.8-10.8) L Red Blood Count 4.18 M/UL (4.70-6.10) L Hemoglobin 12.0 G/DL (14.2-18.0) L Hematocrit 37.0 % (42.0-52.0) L Mean Corpuscular Volume 89 FL (80-99) Mean Corpuscular Hemoglobin 28.6 PG (27.0-31.0) Mean Corpuscular Hemoglobin Concent 32.3 G/DL (32.0-36.0) Red Cell Distribution Width 18.0 % (11.6-14.8) H Platelet Count 77 K/UL (150-450) L Mean Platelet Volume 8.3 FL (6.5-10.1) Neutrophils (%) (Auto) % (45.0-75.0) Lymphocytes (%) (Auto) % (20.0-45.0) Monocytes (%) (Auto) % (1.0-10.0) Eosinophils (%) (Auto) % (0.0-3.0) Basophils (%) (Auto) % (0.0-2.0) Differential Total Cells Counted 100 Neutrophils % (Manual) 47 % (45-75) Lymphocytes % (Manual) 32 % (20-45) Monocytes % (Manual) 18 % (1-10) H Eosinophils % (Manual) 3 % (0-3) Basophils % (Manual) 0 % (0-2) Band Neutrophils 0 % (0-8) Platelet Estimate Decreased L Platelet Morphology Normal Anisocytosis 1+ Sodium Level 140 MMOL/L (136-145) Potassium Level 4.6 MMOL/L (3.5-5.1) Chloride Level 98 MMOL/L (98-107) Carbon Dioxide Level 33 MMOL/L (21-32) H Anion Gap 9 mmol/L (5-15) Blood Urea Nitrogen 54 mg/dL (7-18) H Creatinine 9.8 MG/DL (0.55-1.30) H Estimat Glomerular Filtration Rate 6.8 mL/min (>60) Glucose Level 91 MG/DL (74-106) Calcium Level 8.5 MG/DL (8.5-10.1) Total Bilirubin 0.8 MG/DL (0.2-1.0) Aspartate Amino Transf (AST/SGOT) 20 U/L (15-37) Alanine Aminotransferase (ALT/SGPT) 11 U/L (12-78) L Alkaline Phosphatase 172 U/L (46-116) H Total Protein 7.5 G/DL (6.4-8.2) Albumin 3.2 G/DL (3.4-5.0) L Globulin 4.3 g/dL Albumin/Globulin Ratio 0.7 (1.0-2.7) L Plan Problems: (1) Peripheral vascular disease Assessment & Plan: 52M with long history of known peripheral vascular disease and vasculopathy. Presents with chronic distal left to and finger pain. has chronic skin changes at toes and fingers. on left hand nails have come off and distal vasculopathy noted. no acute changes. on left foot prior amputation and 2nd toe with chronic changes and ulcer noted. no acute process seen. likely has worsening peripheral vascular disease. no acute intervention needed. no signs of acute infection. needs to follow with his vascular surgeon for angiography. may benefit from angioplasty or interventions if indicated/necessary. MRI FINDINGS: Positive for evidence of osteomyelitis of the second distal phalanx and likely the head of the second middle phalanx -should have amputation of second toe. given vascular history and significant peripheral vascular disease would recommend to be done by his Vascular surgeon. can be done as an outpatient given that this is chronic with no acute active infectious process. -okay to d/c from surgical standpoint. patient states that he has appointment soon with his vascular surgeon for new HD fistula vs graft so he will discuss peripheral vascular disease and amputation at that time. thank you for this consult. will follow with Hermilo Thompson Jan 18, 2018 12:25
--- NOTE | 2018-01-18 13:01 | Internal Med Progress Note ---
Subjective Date of Service: Jan 18, 2018 Physician Name Krystian Richter Attending Physician Nabeel Hoff MD Current Medications Medications (Trade) Dose Ordered Sig/Anum Route PRN Reason Start Time Stop Time Status Last Admin Dose Admin Acetaminophen (Tylenol) 650 mg Q4H PRN ORAL Mild Pain/Temp > 100.5 01/13/18 08:15 02/12/18 08:14 Amoxicillin/ Clavulanate Potassium (Augmentin) 500 mg QHS ORAL 01/17/18 21:00 01/24/18 20:59 01/17/18 21:47 Apixaban (Eliquis) 2.5 mg Q12HR ORAL 01/13/18 21:00 02/12/18 20:59 01/18/18 09:15 Aspirin (ASA) 81 mg DAILY ORAL 01/13/18 09:00 02/12/18 08:59 01/18/18 09:15 Atenolol (Tenormin) 50 mg DAILY ORAL 01/13/18 09:00 02/12/18 08:59 01/17/18 09:06 Chlorhexidine Gluconate (Yumiko-Hex 2%) 1 applic DAILY@1999 TOPIC 01/16/18 20:00 02/15/18 19:59 01/17/18 21:45 Cinacalcet (Sensipar) 60 mg DAILY ORAL 01/13/18 09:00 02/12/18 08:59 01/18/18 08:57 Darunavir (Prezista) 800 mg DAILY ORAL 01/13/18 20:00 02/12/18 19:59 01/18/18 09:32 Diphenhydramine HCl (Benadryl) 25 mg Q4H PRN IVP Itching 01/13/18 08:15 02/12/18 08:14 01/18/18 09:16 Doxycycline Monohydrate (Vibramycin) 100 mg EVERY 12 HOURS ORAL 01/17/18 21:00 01/24/18 20:59 01/18/18 08:56 Gabapentin (Neurontin) 300 mg Q12HR ORAL 01/13/18 09:00 02/12/18 08:59 01/18/18 08:57 Hydromorphone HCl (Dilaudid) 1 mg Q4H PRN IVP Severe Pain (Pain Scale 7-10) 01/16/18 03:00 01/23/18 02:59 01/18/18 09:17 Ondansetron HCl (Zofran) 4 mg Q4H PRN IVP Nausea & Vomiting 01/15/18 09:30 02/14/18 09:29 01/17/18 16:10 Patient Own Medication (Patient's Own Med) 1 ea DAILY@2100 ORAL 01/14/18 21:00 02/13/18 20:59 01/17/18 21:45 Pravastatin Sodium (Pravachol) 20 mg BEDTIME ORAL 01/13/18 21:00 02/12/18 20:59 01/17/18 21:45 Raltegravir (Isentress) 400 mg DAILY@2100 ORAL 01/14/18 21:00 02/13/18 20:59 01/17/18 21:45 Regadenoson (Lexiscan) 0.4 mg ONCE IV 01/17/18 17:30 01/18/18 23:59 Sevelamer Carbonate (Renvela) 2,400 mg THREE TIMES A DAY ORAL 01/16/18 13:00 02/15/18 12:59 01/18/18 12:51 Allergies: Coded Allergies: FLUTICASONE (Unverified Allergy, Unknown, 02/23/17) LEVOFLOXACIN (Unverified Allergy, Unknown, 08/22/14) MORPHINE (Unverified Allergy, Unknown, 02/23/17) Uncoded Allergies: nasal spray (Allergy, Unknown, 07/03/15) ROS Limited/Unobtainable: No Constitutional: Reports: no symptoms HEENT: Reports: no symptoms Cardiovascular: Reports: no symptoms Respiratory: Reports: no symptoms Gastrointestinal/Abdominal: Reports: no symptoms Genitourinary: Reports: no symptoms Neurologic/Psychiatric: Reports: no symptoms Subjective 52 YO M admitted with left toe pain, now osteomyelitis. Cover for Int Juliano-Dr Hoff Objective Last Vital Signs Date Time Temp Pulse Resp B/P (MAP) Pulse Ox O2 Delivery O2 Flow Rate FiO2 01/18/18 09:00 57 94/52 01/18/18 08:00 98.1 19 98 98.1 01/18/18 04:32 Room Air Laboratory Tests Test 01/18/18 06:15 White Blood Count 2.6 K/UL (4.8-10.8) L Red Blood Count 4.18 M/UL (4.70-6.10) L Hemoglobin 12.0 G/DL (14.2-18.0) L Hematocrit 37.0 % (42.0-52.0) L Mean Corpuscular Volume 89 FL (80-99) Mean Corpuscular Hemoglobin 28.6 PG (27.0-31.0) Mean Corpuscular Hemoglobin Concent 32.3 G/DL (32.0-36.0) Red Cell Distribution Width 18.0 % (11.6-14.8) H Platelet Count 77 K/UL (150-450) L Mean Platelet Volume 8.3 FL (6.5-10.1) Neutrophils (%) (Auto) % (45.0-75.0) Lymphocytes (%) (Auto) % (20.0-45.0) Monocytes (%) (Auto) % (1.0-10.0) Eosinophils (%) (Auto) % (0.0-3.0) Basophils (%) (Auto) % (0.0-2.0) Differential Total Cells Counted 100 Neutrophils % (Manual) 47 % (45-75) Lymphocytes % (Manual) 32 % (20-45) Monocytes % (Manual) 18 % (1-10) H Eosinophils % (Manual) 3 % (0-3) Basophils % (Manual) 0 % (0-2) Band Neutrophils 0 % (0-8) Platelet Estimate Decreased L Platelet Morphology Normal Anisocytosis 1+ Sodium Level 140 MMOL/L (136-145) Potassium Level 4.6 MMOL/L (3.5-5.1) Chloride Level 98 MMOL/L (98-107) Carbon Dioxide Level 33 MMOL/L (21-32) H Anion Gap 9 mmol/L (5-15) Blood Urea Nitrogen 54 mg/dL (7-18) H Creatinine 9.8 MG/DL (0.55-1.30) H Estimat Glomerular Filtration Rate 6.8 mL/min (>60) Glucose Level 91 MG/DL (74-106) Calcium Level 8.5 MG/DL (8.5-10.1) Total Bilirubin 0.8 MG/DL (0.2-1.0) Aspartate Amino Transf (AST/SGOT) 20 U/L (15-37) Alanine Aminotransferase (ALT/SGPT) 11 U/L (12-78) L Alkaline Phosphatase 172 U/L (46-116) H Total Protein 7.5 G/DL (6.4-8.2) Albumin 3.2 G/DL (3.4-5.0) L Globulin 4.3 g/dL Albumin/Globulin Ratio 0.7 (1.0-2.7) L Intake and Output 01/17/18 01/18/18 19:00 07:00 Output Total 3000 ml Balance -3000 ml Hemodialysis UF 3000 ml # Voids 3 Objective General Appearance: WD/WN, no apparent distress, alert EENT: PERRL/EOMI, normal ENT inspection Neck: non-tender, normal alignment, supple, normal inspection Cardiovascular: normal peripheral pulses, normal rate, regular rhythm, no gallop/murmur, no JVD Respiratory/Chest: chest wall non-tender, lungs clear, normal breath sounds, no respiratory distress, no accessory muscle use Abdomen: normal bowel sounds, non tender, soft, no organomegaly, no mass Extremities: normal range of motion Neurologic: house wirer helper II-XII grossly normal, no motor/sensory deficits Skin: normal pigmentation, warm/dry Assessment/Plan Problem List: (1) Peripheral vascular disease Assessment & Plan: severe-await vascular surgery consult. (2) osteomyelitis left toe 2nd digit Assessment & Plan: MRI=osteomyelitis. Trial of antibiotics due to peripheral vascular dis-See podiratry note (3) HIV (human immunodeficiency virus infection) Assessment & Plan: Continue HAART. Await HIV Viral load. See ID note. (4) HTN (hypertension) (5) DVT (deep venous thrombosis) (6) ESRD (end stage renal disease) Assessment & Plan: See nephrology note. hemodialysis today 01/17/18. (7) Coronary artery disease (8) Atrial fibrillation Status: not improved KRYSTIAN RICHTER Jan 18, 2018 13:01
--- NOTE | 2018-01-18 13:09 | Nephrology Progress Note ---
Assessment/Plan Problem List: (1) ESRD on hemodialysis Assessment -. Human immunodeficiency virus. -. End-stage renal disease. on HD T.Th.Sat -. Hypertension. -. Asthma. -. Atrial fibrillation. -. Gastroesophageal reflux disease. -. Hypertension. -. Coronary artery disease. -. History of pericardial effusion. -. Peripheral vascular disease. Plan Plan: Arrange for HD 01/19 Per PMD Subjective ROS Limited/Unobtainable: No Objective Objective Last 24 Hour Vital Signs Date Time Temp Pulse Resp B/P (MAP) Pulse Ox O2 Delivery O2 Flow Rate FiO2 01/18/18 09:00 57 94/52 01/18/18 08:00 98.1 55 19 94/52 98 98.1 01/18/18 04:32 93 Room Air 01/18/18 04:32 97.6 51 20 108/77 93 Room Air 97.6 01/18/18 03:54 97.2 01/18/18 03:24 97.2 01/18/18 00:14 97.2 59 20 109/65 91 Room Air 97.2 01/17/18 22:12 Room Air 01/17/18 22:07 Room Air 01/17/18 22:04 98.0 56 16 128/68 Room Air 98.0 01/17/18 21:49 98.1 01/17/18 20:11 126/65 01/17/18 19:46 95 Room Air 01/17/18 19:33 98.1 53 20 97/58 95 Room Air 98.1 01/17/18 18:00 98.2 53 16 113/64 Room Air 98.2 01/17/18 15:50 97.3 58 18 107/50 100 97.3 Intake and Output 01/17/18 01/18/18 19:00 07:00 Output Total 3000 ml Balance -3000 ml Hemodialysis UF 3000 ml # Voids 3 Laboratory Tests 01/18/18 06:15: White Blood Count 2.6L, Red Blood Count 4.18L, Hemoglobin 12.0L, Hematocrit 37.0L, Mean Corpuscular Volume 89, Mean Corpuscular Hemoglobin 28.6, Mean Corpuscular Hemoglobin Concent 32.3, Red Cell Distribution Width 18.0H, Platelet Count 77L, Mean Platelet Volume 8.3, Neutrophils (%) (Auto) , Lymphocytes (%) (Auto) , Monocytes (%) (Auto) , Eosinophils (%) (Auto) , Basophils (%) (Auto) , Differential Total Cells Counted 100, Neutrophils % ( Manual) 47, Lymphocytes % (Manual) 32, Monocytes % (Manual) 18H, Eosinophils % ( Manual) 3, Basophils % (Manual) 0, Band Neutrophils 0, Platelet Estimate DecreasedL, Platelet Morphology Normal, Anisocytosis 1+, Sodium Level 140, Potassium Level 4.6, Chloride Level 98, Carbon Dioxide Level 33H, Anion Gap 9, Blood Urea Nitrogen 54H, Creatinine 9.8H, Estimat Glomerular Filtration Rate 6.8 , Glucose Level 91, Calcium Level 8.5, Total Bilirubin 0.8, Aspartate Amino Transf (AST/SGOT) 20, Alanine Aminotransferase (ALT/SGPT) 11L, Alkaline Phosphatase 172H, Total Protein 7.5, Albumin 3.2L, Globulin 4.3, Albumin/ Globulin Ratio 0.7L Height (Feet): 6 Height (Inches): 3.00 Weight (Pounds): 181 General Appearance: no apparent distress Objective PE not change RALEIGH VAZ Jan 18, 2018 13:09
[2018-01-18] MEDS: Lexiscan 0.4mg/5ml syringe IV SCH (13:30)
[2018-01-18 16:03] VITALS: BP 113/65
--- NOTE | 2018-01-18 16:09 | Diagnostic Imaging Report ---
Indications: Chest pain Technique: Single day single isotope protocol utilized. Initially, resting images obtained using IV administration 10 millicuries 99M technetium Myoview. Subsequently, patient underwent lexiscan stress testing. See cardiology report for details. During Lexiscan infusion, IV administration 30.4 mCi 99 M technetium Myoview. SPECT and planar images obtained. SPECT images gated to 8 phases of the cardiac cycle were also obtained, and reformatted into cine images for evaluation of ejection fraction. Comparison: none Findings: Per cardiology report, patient experienced flushing. Per cardiology report, resting EKG demonstrates atrial fibrillation. Presence or absence of EKG changes not described on the cardiology report. Imaging demonstrates equivocal small area of decreased perfusion in the anterior wall near the apex on the post stress images which is evident on the short axis and more questionably on the coronal long axis views, not evident on the sagittal long axis views. Not described on the polar map. This is not evident on the resting images. No other fixed or reversible post stress perfusion defects are demonstrated. Calculated post stress ejection fraction 55%. No focal wall motion abnormality Impression: Nonischemic clinical response to pharmacologic stress, per cardiology report Nonischemic electrocardiographic response to pharmacologic stress, per cardiology report Equivocal small focus of reversible decreased perfusion in the anterior wall near the apex. SPECT artifact, but small focus of ischemia also possible Calculated post stress ejection fraction 55%
--- NOTE | 2018-01-18 17:13 | Pulmonology Progress Note ---
Assessment/Plan Problems: (1) CHF (congestive heart failure) (2) Asthma (3) ESRD on hemodialysis (4) Peripheral vascular disease (5) Opioid dependence (6) Hypertension (7) Anemia in chronic kidney disease (8) HIV (human immunodeficiency virus infection) Assessment/Plan HD by nephrology HIV w/u in progress Dr. Garza called for podiatry f/u ID recommendations check electrolytes no surgical intervention needed prolonged po abx dc in am after HD Subjective ROS Limited/Unobtainable: No Constitutional: Reports: no symptoms HEENT: Repors: no symptoms Allergies: Coded Allergies: FLUTICASONE (Unverified Allergy, Unknown, 02/23/17) LEVOFLOXACIN (Unverified Allergy, Unknown, 08/22/14) MORPHINE (Unverified Allergy, Unknown, 02/23/17) Uncoded Allergies: nasal spray (Allergy, Unknown, 07/03/15) Objective Last 24 Hour Vital Signs Date Time Temp Pulse Resp B/P (MAP) Pulse Ox O2 Delivery O2 Flow Rate FiO2 01/18/18 16:03 97.2 60 18 113/65 94 97.2 01/18/18 12:00 97.3 61 18 109/60 96 97.3 01/18/18 09:00 57 94/52 01/18/18 08:00 98.1 55 19 94/52 98 98.1 01/18/18 04:32 93 Room Air 01/18/18 04:32 97.6 51 20 108/77 93 Room Air 97.6 01/18/18 03:54 97.2 01/18/18 03:24 97.2 01/18/18 00:14 97.2 59 20 109/65 91 Room Air 97.2 01/17/18 22:12 Room Air 01/17/18 22:07 Room Air 01/17/18 22:04 98.0 56 16 128/68 Room Air 98.0 01/17/18 21:49 98.1 01/17/18 20:11 126/65 01/17/18 19:46 95 Room Air 01/17/18 19:33 98.1 53 20 97/58 95 Room Air 98.1 01/17/18 18:00 98.2 53 16 113/64 Room Air 98.2 Intake and Output 01/17/18 01/18/18 19:00 07:00 Output Total 3000 ml Balance -3000 ml Hemodialysis UF 3000 ml # Voids 3 Objective General Appearance: WD/WN, no apparent distress Lines, tubes and drains: peripheral HEENT: normocephalic, anicteric Neck: non-tender, normal alignment Respiratory/Chest: chest wall non-tender, clear Cardiovascular/Chest: normal peripheral pulses Abdomen: normal bowel sounds EXt: no C/C/E Laboratory Tests 01/18/18 06:15: White Blood Count 2.6L, Red Blood Count 4.18L, Hemoglobin 12.0L, Hematocrit 37.0L, Mean Corpuscular Volume 89, Mean Corpuscular Hemoglobin 28.6, Mean Corpuscular Hemoglobin Concent 32.3, Red Cell Distribution Width 18.0H, Platelet Count 77L, Mean Platelet Volume 8.3, Neutrophils (%) (Auto) , Lymphocytes (%) (Auto) , Monocytes (%) (Auto) , Eosinophils (%) (Auto) , Basophils (%) (Auto) , Differential Total Cells Counted 100, Neutrophils % ( Manual) 47, Lymphocytes % (Manual) 32, Monocytes % (Manual) 18H, Eosinophils % ( Manual) 3, Basophils % (Manual) 0, Band Neutrophils 0, Platelet Estimate DecreasedL, Platelet Morphology Normal, Anisocytosis 1+, Sodium Level 140, Potassium Level 4.6, Chloride Level 98, Carbon Dioxide Level 33H, Anion Gap 9, Blood Urea Nitrogen 54H, Creatinine 9.8H, Estimat Glomerular Filtration Rate 6.8 , Glucose Level 91, Calcium Level 8.5, Total Bilirubin 0.8, Aspartate Amino Transf (AST/SGOT) 20, Alanine Aminotransferase (ALT/SGPT) 11L, Alkaline Phosphatase 172H, Total Protein 7.5, Albumin 3.2L, Globulin 4.3, Albumin/ Globulin Ratio 0.7L Current Medications Medications (Trade) Dose Ordered Sig/Anum Route PRN Reason Start Time Stop Time Status Last Admin Dose Admin Acetaminophen (Tylenol) 650 mg Q4H PRN ORAL Mild Pain/Temp > 100.5 01/13/18 08:15 02/12/18 08:14 Amoxicillin/ Clavulanate Potassium (Augmentin) 500 mg POSTHD ORAL 01/19/18 17:00 02/28/18 16:59 Amoxicillin/ Clavulanate Potassium (Augmentin) 500 mg QHS ORAL 01/17/18 21:00 02/28/18 20:59 01/17/18 21:47 Amoxicillin/ Clavulanate Potassium (Augmentin) 500 mg during dialysis ORAL 01/19/18 12:00 02/28/18 11:59 Apixaban (Eliquis) 2.5 mg Q12HR ORAL 01/13/18 21:00 02/12/18 20:59 01/18/18 09:15 Aspirin (ASA) 81 mg DAILY ORAL 01/13/18 09:00 02/12/18 08:59 01/18/18 09:15 Atenolol (Tenormin) 50 mg DAILY ORAL 01/13/18 09:00 02/12/18 08:59 01/17/18 09:06 Chlorhexidine Gluconate (Yumiko-Hex 2%) 1 applic DAILY@1999 TOPIC 01/16/18 20:00 02/15/18 19:59 01/17/18 21:45 Cinacalcet (Sensipar) 60 mg DAILY ORAL 01/13/18 09:00 02/12/18 08:59 01/18/18 08:57 Darunavir (Prezista) 800 mg DAILY ORAL 01/13/18 20:00 02/12/18 19:59 01/18/18 09:32 Diphenhydramine HCl (Benadryl) 25 mg Q4H PRN IVP Itching 01/13/18 08:15 02/12/18 08:14 01/18/18 15:40 Doxycycline Monohydrate (Vibramycin) 100 mg EVERY 12 HOURS ORAL 01/17/18 21:00 02/28/18 20:59 01/18/18 08:56 Gabapentin (Neurontin) 300 mg Q12HR ORAL 01/13/18 09:00 02/12/18 08:59 01/18/18 08:57 Hydromorphone HCl (Dilaudid) 1 mg Q4H PRN IVP Severe Pain (Pain Scale 7-10) 01/16/18 03:00 01/23/18 02:59 01/18/18 14:01 Ondansetron HCl (Zofran) 4 mg Q4H PRN IVP Nausea & Vomiting 01/15/18 09:30 02/14/18 09:29 01/18/18 15:30 Patient Own Medication (Patient's Own Med) 1 ea DAILY@2100 ORAL 01/14/18 21:00 02/13/18 20:59 01/17/18 21:45 Pravastatin Sodium (Pravachol) 20 mg BEDTIME ORAL 01/13/18 21:00 02/12/18 20:59 01/17/18 21:45 Raltegravir (Isentress) 400 mg DAILY@2100 ORAL 01/14/18 21:00 02/13/18 20:59 01/17/18 21:45 Sevelamer Carbonate (Renvela) 2,400 mg THREE TIMES A DAY ORAL 01/16/18 13:00 02/15/18 12:59 01/18/18 12:51 Srinivasan Patterson MD Jan 18, 2018 17:13
--- NOTE | 2018-01-18 18:00 | Cardiac Electrophysiology PN ---
Assessment/Plan Status Narrative Impression: Nonischemic clinical response to pharmacologic stress, per cardiology report Nonischemic electrocardiographic response to pharmacologic stress, per cardiology report Equivocal small focus of reversible decreased perfusion in the anterior wall near the apex. SPECT artifact, but small focus of ischemia also possible Calculated post stress ejection fraction 55% Assessment/Plan 1. Hypertension.On hemodialysis and atenolol 50 mg daily . 2. Chronic atrial fibrillation. Rate controlled on atenolol 50 mg daily and Eliquis 2.5 mg b.i.d. 3. End-stage renal disease, on hemodialysis. 4. HIV, on Isentress and Prezista. 5. Severe peripheral vascular disease and gangrene of the toe. Echocardiogram Nuclear stress test as above. No signif. ischemia. May need toe amputation.On Abx DW RN Subjective Subjective No chest pain or SOB. DC planning tomorrow after HD. Objective Last 24 Hour Vital Signs Date Time Temp Pulse Resp B/P (MAP) Pulse Ox O2 Delivery O2 Flow Rate FiO2 01/18/18 16:03 97.2 60 18 113/65 94 97.2 01/18/18 12:00 97.3 61 18 109/60 96 97.3 01/18/18 09:00 57 94/52 01/18/18 08:00 98.1 55 19 94/52 98 98.1 01/18/18 04:32 93 Room Air 01/18/18 04:32 97.6 51 20 108/77 93 Room Air 97.6 01/18/18 03:54 97.2 01/18/18 03:24 97.2 01/18/18 00:14 97.2 59 20 109/65 91 Room Air 97.2 01/17/18 22:12 Room Air 01/17/18 22:07 Room Air 01/17/18 22:04 98.0 56 16 128/68 Room Air 98.0 01/17/18 21:49 98.1 01/17/18 20:11 126/65 01/17/18 19:46 95 Room Air 01/17/18 19:33 98.1 53 20 97/58 95 Room Air 98.1 01/17/18 18:00 98.2 53 16 113/64 Room Air 98.2 Intake and Output 01/17/18 01/18/18 19:00 07:00 Output Total 3000 ml Balance -3000 ml Hemodialysis UF 3000 ml # Voids 3 Laboratory Tests Test 01/18/18 06:15 White Blood Count 2.6 K/UL (4.8-10.8) L Red Blood Count 4.18 M/UL (4.70-6.10) L Hemoglobin 12.0 G/DL (14.2-18.0) L Hematocrit 37.0 % (42.0-52.0) L Mean Corpuscular Volume 89 FL (80-99) Mean Corpuscular Hemoglobin 28.6 PG (27.0-31.0) Mean Corpuscular Hemoglobin Concent 32.3 G/DL (32.0-36.0) Red Cell Distribution Width 18.0 % (11.6-14.8) H Platelet Count 77 K/UL (150-450) L Mean Platelet Volume 8.3 FL (6.5-10.1) Neutrophils (%) (Auto) % (45.0-75.0) Lymphocytes (%) (Auto) % (20.0-45.0) Monocytes (%) (Auto) % (1.0-10.0) Eosinophils (%) (Auto) % (0.0-3.0) Basophils (%) (Auto) % (0.0-2.0) Differential Total Cells Counted 100 Neutrophils % (Manual) 47 % (45-75) Lymphocytes % (Manual) 32 % (20-45) Monocytes % (Manual) 18 % (1-10) H Eosinophils % (Manual) 3 % (0-3) Basophils % (Manual) 0 % (0-2) Band Neutrophils 0 % (0-8) Platelet Estimate Decreased L Platelet Morphology Normal Anisocytosis 1+ Sodium Level 140 MMOL/L (136-145) Potassium Level 4.6 MMOL/L (3.5-5.1) Chloride Level 98 MMOL/L (98-107) Carbon Dioxide Level 33 MMOL/L (21-32) H Anion Gap 9 mmol/L (5-15) Blood Urea Nitrogen 54 mg/dL (7-18) H Creatinine 9.8 MG/DL (0.55-1.30) H Estimat Glomerular Filtration Rate 6.8 mL/min (>60) Glucose Level 91 MG/DL (74-106) Calcium Level 8.5 MG/DL (8.5-10.1) Total Bilirubin 0.8 MG/DL (0.2-1.0) Aspartate Amino Transf (AST/SGOT) 20 U/L (15-37) Alanine Aminotransferase (ALT/SGPT) 11 U/L (12-78) L Alkaline Phosphatase 172 U/L (46-116) H Total Protein 7.5 G/DL (6.4-8.2) Albumin 3.2 G/DL (3.4-5.0) L Globulin 4.3 g/dL Albumin/Globulin Ratio 0.7 (1.0-2.7) L Objective HEAD AND NECK: No JVD. LUNGS: Clear. CARDIOVASCULAR: Regular S1 and S2. No gallop or murmur. ABDOMEN: Soft. EXTREMITIES: 1+ pitting edema and gangrene of left mid toe FRANKY SRIVASTAVA Jan 18, 2018 17:59
[2018-01-18 19:22] VITALS: BP 106/69
[2018-01-18] MEDS: Dyna-Hex 2% Top Sol 2oz TOPIC SCH (20:05)
--- NOTE | 2018-01-18 20:05 | Cardiology Report ---
APPROVED REPORT EXAM: Two-dimensional and M-mode echocardiogram with Doppler and color Doppler. M-Mode DIMENSIONS IVSd1.4 (0.7-1.1cm)Left Atrium (MM)3.9 (1.6-4.0cm) LVDd4.7 (3.5-5.6cm)Aortic Root3.2 (2.0-3.7cm) PWd1.3 (0.7-1.1cm)Aortic Cusp Exc.1.9 (1.5-2.0cm) LVDs3.4 (2.5-4.0cm) PWs2.0 cm Normal left ventricular chamber size. Anteroseptal and inferoseptal hypokinesis, otherwise normal wall motion in remaining segments. Ischemia cardiomyopathy can not be excluded. Left ventricular ejection fraction estimated to be 45-50 %. Mild left ventricular hypertrophy. Small posterior pericardial effusion. Moderate bi-atrial enlargement. Moderate right ventricular enlargement. Focal aortic valve sclerosis with adequate cusp excursion. Thickened mitral valve leaflets with normal excursion. Mitral annulus and aortic root calcification. Normal pulmonic valve structure. Normal tricuspid valve structure. IVC dilated at 2.4 cm with slight physiologic collapse suggestive of increased RA pressure. Cath wire present in IVC and right atrial chamber. A color flow and spectral Doppler study was performed and revealed: Trace to mild aortic regurgitation. Mild mitral regurgitation. Can not determine left ventricular diastolic function by mitral diastolic velocities due to atrial fibrillation. Severe tricuspid regurgitation. Tricuspid systolic velocities suggests peak right ventricular systolic pressure of 95 mmHg, consistent with severe pulmonary hypertension. Trace to mild pulmonic regurgitation present.
[2018-01-18] MEDS: Isentress 400mg tab ORAL SCH (20:06)
[2018-01-19 00:31] VITALS: BP 124/53
[2018-01-19] MEDS: HYDROmorphone 1mg/ml Carpuject IVP PRN ×5 (01:52→19:55)
[2018-01-19] MEDS: DiphenhydrAMINE 50mg/ml Inj IVP PRN ×5 (02:00→19:54)
[2018-01-19 05:32] VITALS: BP 136/74
[2018-01-19 08:25] VITALS: BP 127/67
[2018-01-19] MEDS: Eliquis 2.5mg tablet ORAL SCH ×2 (08:44→19:55)
[2018-01-19] MEDS: Aspirin Baby 81mg ORAL SCH (08:44)
[2018-01-19] MEDS: Sensipar 30mg Tab ORAL SCH (08:51)
[2018-01-19 10:52] LABS: HEMATOCRIT 39.6 % (42.0-52.0); HEMOGLOBIN 12.6 G/DL (14.2-18.0); MEAN CORPUSCULAR VOLUME 89 FL (80-99); PLATELET COUNT 81 K/UL (150-450); RED BLOOD COUNT 4.45 M/UL (4.70-6.10); RED CELL DISTRIBUTION WIDTH 17.7 % (11.6-14.8); WHITE BLOOD COUNT 2.9 K/UL (4.8-10.8)
[2018-01-19 10:55] LABS: ANION GAP 11 mmol/L (5-15); BLOOD UREA NITROGEN 68 mg/dL (7-18); CALCIUM 9.1 MG/DL (8.5-10.1); CARBON DIOXIDE 32 MMOL/L (21-32); CHLORIDE 96 MMOL/L (98-107); CREATININE 12.1 MG/DL (0.55-1.30); POTASSIUM 4.5 MMOL/L (3.5-5.1); SODIUM 138 MMOL/L (136-145)
--- NOTE | 2018-01-19 11:43 | Nephrology Progress Note ---
Assessment/Plan Problem List: (1) ESRD on hemodialysis Assessment -. Human immunodeficiency virus. -. End-stage renal disease. on HD T.Th.Sat -. Hypertension. -. Asthma. -. Atrial fibrillation. -. Gastroesophageal reflux disease. -. Hypertension. -. Coronary artery disease. -. History of pericardial effusion. -. Peripheral vascular disease. Plan Plan: Arrange for HD 01/19 Per PMD Subjective ROS Limited/Unobtainable: No Objective Objective Last 24 Hour Vital Signs Date Time Temp Pulse Resp B/P (MAP) Pulse Ox O2 Delivery O2 Flow Rate FiO2 01/19/18 10:41 97.6 01/19/18 10:11 97.6 01/19/18 08:25 97.6 66 20 127/67 92 97.6 01/19/18 06:14 97.6 01/19/18 05:32 97.6 57 20 136/74 93 Room Air 97.6 01/19/18 01:52 97.2 01/19/18 00:31 97.2 55 20 124/53 99 Room Air 97.2 01/18/18 20:16 98.1 01/18/18 19:52 97 Room Air 01/18/18 19:22 98.1 52 20 106/69 97 Room Air 98.1 01/18/18 16:03 97.2 60 18 113/65 94 97.2 01/18/18 12:00 97.3 61 18 109/60 96 97.3 Intake and Output 01/18/18 01/19/18 19:00 07:00 Output Total 3 ml Balance -3 ml Output Urine Total 3 ml # Bowel Movements 1 Laboratory Tests 01/19/18 10:25: White Blood Count 2.9L, Red Blood Count 4.45L, Hemoglobin 12.6L, Hematocrit 39.6L, Mean Corpuscular Volume 89, Mean Corpuscular Hemoglobin 28.3, Mean Corpuscular Hemoglobin Concent 31.8L, Red Cell Distribution Width 17.7H, Platelet Count 81L, Mean Platelet Volume 7.7, Neutrophils (%) (Auto) , Lymphocytes (%) (Auto) , Monocytes (%) (Auto) , Eosinophils (%) (Auto) , Basophils (%) (Auto) , Neutrophils % (Manual) [Pending], Lymphocytes % (Manual) [Pending], Platelet Estimate [Pending], Platelet Morphology [Pending], Sodium Level 138, Potassium Level 4.5, Chloride Level 96L, Carbon Dioxide Level 32, Anion Gap 11, Blood Urea Nitrogen 68H, Creatinine 12.1H, Estimat Glomerular Filtration Rate 5.3, Glucose Level 97, Calcium Level 9.1 Height (Feet): 6 Height (Inches): 3.00 Weight (Pounds): 180 General Appearance: no apparent distress Cardiovascular: normal rate Abdomen: soft Objective PE not change RALEIGH VAZ Jan 19, 2018 11:43
[2018-01-19 12:00] VITALS: BP 127/73
[2018-01-19 15:46] VITALS: BP 109/71
--- NOTE | 2018-01-19 16:22 | Cardiac Electrophysiology PN ---
Assessment/Plan Status Narrative Impression: Nonischemic clinical response to pharmacologic stress, per cardiology report Nonischemic electrocardiographic response to pharmacologic stress, per cardiology report Equivocal small focus of reversible decreased perfusion in the anterior wall near the apex. SPECT artifact, but small focus of ischemia also possible Calculated post stress ejection fraction 55% Assessment/Plan 1. Hypertension. On hemodialysis and atenolol 50 mg daily . 2. Chronic atrial fibrillation. Continue atenolol 50 mg daily and Eliquis 2.5 mg b.i.d. 3. End-stage renal disease, on hemodialysis. 4. HIV, on Isentress and Prezista. 5. Severe peripheral vascular disease and gangrene of the toe. Echocardiogram Nuclear stress test as above. No signif. ischemia. May need toe amputation.On Abx DW RN Subjective Subjective No chest pain or SOB. Just completed HD. DC planning tonight Objective Last 24 Hour Vital Signs Date Time Temp Pulse Resp B/P (MAP) Pulse Ox O2 Delivery O2 Flow Rate FiO2 01/19/18 15:46 98.1 52 20 109/71 93 98.1 01/19/18 15:27 97.5 01/19/18 14:57 97.5 01/19/18 12:00 97.5 54 20 127/73 93 97.5 01/19/18 10:11 97.6 01/19/18 08:25 97.6 66 20 127/67 92 97.6 01/19/18 06:14 97.6 01/19/18 05:32 97.6 57 20 136/74 93 Room Air 97.6 01/19/18 01:52 97.2 01/19/18 00:31 97.2 55 20 124/53 99 Room Air 97.2 01/18/18 20:16 98.1 01/18/18 19:52 97 Room Air 01/18/18 19:22 98.1 52 20 106/69 97 Room Air 98.1 Intake and Output 01/18/18 01/19/18 19:00 07:00 Output Total 3 ml Balance -3 ml Output Urine Total 3 ml # Bowel Movements 1 Laboratory Tests Test 01/19/18 10:25 White Blood Count 2.9 K/UL (4.8-10.8) L Red Blood Count 4.45 M/UL (4.70-6.10) L Hemoglobin 12.6 G/DL (14.2-18.0) L Hematocrit 39.6 % (42.0-52.0) L Mean Corpuscular Volume 89 FL (80-99) Mean Corpuscular Hemoglobin 28.3 PG (27.0-31.0) Mean Corpuscular Hemoglobin Concent 31.8 G/DL (32.0-36.0) L Red Cell Distribution Width 17.7 % (11.6-14.8) H Platelet Count 81 K/UL (150-450) L Mean Platelet Volume 7.7 FL (6.5-10.1) Neutrophils (%) (Auto) % (45.0-75.0) Lymphocytes (%) (Auto) % (20.0-45.0) Monocytes (%) (Auto) % (1.0-10.0) Eosinophils (%) (Auto) % (0.0-3.0) Basophils (%) (Auto) % (0.0-2.0) Differential Total Cells Counted 100 Neutrophils % (Manual) 50 % (45-75) Lymphocytes % (Manual) 28 % (20-45) Monocytes % (Manual) 16 % (1-10) H Eosinophils % (Manual) 6 % (0-3) H Basophils % (Manual) 0 % (0-2) Band Neutrophils 0 % (0-8) Platelet Estimate Decreased L Platelet Morphology Normal Anisocytosis 1+ Sodium Level 138 MMOL/L (136-145) Potassium Level 4.5 MMOL/L (3.5-5.1) Chloride Level 96 MMOL/L (98-107) L Carbon Dioxide Level 32 MMOL/L (21-32) Anion Gap 11 mmol/L (5-15) Blood Urea Nitrogen 68 mg/dL (7-18) H Creatinine 12.1 MG/DL (0.55-1.30) H Estimat Glomerular Filtration Rate 5.3 mL/min (>60) Glucose Level 97 MG/DL (74-106) Calcium Level 9.1 MG/DL (8.5-10.1) Objective HEAD AND NECK: No JVD. LUNGS: Clear. CARDIOVASCULAR: Regular S1 and S2. No gallop or murmur. ABDOMEN: Soft. EXTREMITIES: 1+ pitting edema and gangrene of left mid toe. Dialysis acces right thigh Heath Valencia MD Jan 19, 2018 16:22
--- NOTE | 2018-01-19 16:31 | Infectious Diseases Prog Note ---
Assessment/Plan Assessment/Plan PVD s/p L 3rd and 4th toe amputation Acute on Chronic L hand pain L foot pain, chronic 2nd tip toe ulcer with callous- MRI findings of OM , however clinically not infected, Mildly elevated ESR/CRP. Major component of vascular disease. -MRI Foot: Positive for evidence of osteomyelitis of the second distal phalanx and likely the head of the second middle phalanx. Soft tissue edema, as described, may indicate cellulitis. Correlate with clinical findings -L hand: No acute bony trauma. Postsurgical changes, as described. No definite plain radiographic evidence of osteomyelitis. -L foot: No acute bony trauma. Postsurgical changes.No plain radiographic evidence of osteomyelitis. -no acute infectious process at present Afebrile leukopenia/thrombocytopenia probably due to HIV HIV - VL 460 CD4 p HLD Asthma HTN GERD CAD PVD hx pericardial effusion ESRD on HD TTSat w/ thrombose R upper arm AV graft, on kidney transplant list Seizure disorder syncope Plan: -As attempt for salvage of 2nd toe, will treat for chronic OM with PO Doxycycline 100mg Bid and PO Augmentin 500mg daily (on HD days will take 2 extra doses, one during HD and one after end of HD) #3/ days -f/u with HIV provider and outpatient vascular surgeon -per surgery and podiatry, not recommended to pursue bone biopsy given severe PVD -f/u A. duplex -Continue ARV : Darunavir, Dolutegravir and Ritonavir -f/u CD4 -Vascular surg eval -f/u cx -Monitor CBC/BMP, temperatures Subjective Allergies: Coded Allergies: FLUTICASONE (Unverified Allergy, Unknown, 02/23/17) LEVOFLOXACIN (Unverified Allergy, Unknown, 08/22/14) MORPHINE (Unverified Allergy, Unknown, 02/23/17) Uncoded Allergies: nasal spray (Allergy, Unknown, 07/03/15) Subjective afebrile leukopenia off abx Objective Vital Signs Last 24 Hour Vital Signs Date Time Temp Pulse Resp B/P (MAP) Pulse Ox O2 Delivery O2 Flow Rate FiO2 01/19/18 15:46 98.1 52 20 109/71 93 98.1 01/19/18 15:27 97.5 01/19/18 14:57 97.5 01/19/18 12:00 97.5 54 20 127/73 93 97.5 01/19/18 10:11 97.6 01/19/18 08:25 97.6 66 20 127/67 92 97.6 01/19/18 06:14 97.6 01/19/18 05:32 97.6 57 20 136/74 93 Room Air 97.6 01/19/18 01:52 97.2 01/19/18 00:31 97.2 55 20 124/53 99 Room Air 97.2 01/18/18 20:16 98.1 01/18/18 19:52 97 Room Air 01/18/18 19:22 98.1 52 20 106/69 97 Room Air 98.1 Height (Feet): 6 Height (Inches): 3.00 Weight (Pounds): 180 Objective General Appearance: well appearing, alert, Chronically Ill Head: atraumatic ENT: normal ENT inspection, hearing grossly normal, normal voice Neck: normal inspection, full range of motion, supple, no bony tend Respiratory: normal inspection, lungs clear, normal breath sounds, no respiratory distress, no retraction, no wheezing Cardiovascular : regular rate, rhythm Gastrointestinal: normal inspection, normal bowel sounds, non tender, soft, no guarding, no hernia Genitourinary: no CVA tenderness Musculoskeletal: other - discoloration and atrophy to left hand digits with some distal dark discoloration Neurologic: normal inspection, alert, oriented x3, responsive Skin: other - discoloration to left hand digits with some dark discoloration, pulse present to left hand graft, left foot discoloration 2nd toe Laboratory Tests Test 01/19/18 10:25 White Blood Count 2.9 K/UL (4.8-10.8) L Red Blood Count 4.45 M/UL (4.70-6.10) L Hemoglobin 12.6 G/DL (14.2-18.0) L Hematocrit 39.6 % (42.0-52.0) L Mean Corpuscular Volume 89 FL (80-99) Mean Corpuscular Hemoglobin 28.3 PG (27.0-31.0) Mean Corpuscular Hemoglobin Concent 31.8 G/DL (32.0-36.0) L Red Cell Distribution Width 17.7 % (11.6-14.8) H Platelet Count 81 K/UL (150-450) L Mean Platelet Volume 7.7 FL (6.5-10.1) Neutrophils (%) (Auto) % (45.0-75.0) Lymphocytes (%) (Auto) % (20.0-45.0) Monocytes (%) (Auto) % (1.0-10.0) Eosinophils (%) (Auto) % (0.0-3.0) Basophils (%) (Auto) % (0.0-2.0) Differential Total Cells Counted 100 Neutrophils % (Manual) 50 % (45-75) Lymphocytes % (Manual) 28 % (20-45) Monocytes % (Manual) 16 % (1-10) H Eosinophils % (Manual) 6 % (0-3) H Basophils % (Manual) 0 % (0-2) Band Neutrophils 0 % (0-8) Platelet Estimate Decreased L Platelet Morphology Normal Anisocytosis 1+ Sodium Level 138 MMOL/L (136-145) Potassium Level 4.5 MMOL/L (3.5-5.1) Chloride Level 96 MMOL/L (98-107) L Carbon Dioxide Level 32 MMOL/L (21-32) Anion Gap 11 mmol/L (5-15) Blood Urea Nitrogen 68 mg/dL (7-18) H Creatinine 12.1 MG/DL (0.55-1.30) H Estimat Glomerular Filtration Rate 5.3 mL/min (>60) Glucose Level 97 MG/DL (74-106) Calcium Level 9.1 MG/DL (8.5-10.1) Current Medications Medications (Trade) Dose Ordered Sig/Anum Route PRN Reason Start Time Stop Time Status Last Admin Dose Admin Acetaminophen (Tylenol) 650 mg Q4H PRN ORAL Mild Pain/Temp > 100.5 01/13/18 08:15 02/12/18 08:14 Amoxicillin/ Clavulanate Potassium (Augmentin) 500 mg POSTHD ORAL 01/19/18 17:00 02/28/18 16:59 Amoxicillin/ Clavulanate Potassium (Augmentin) 500 mg QHS ORAL 01/17/18 21:00 02/28/18 20:59 01/18/18 20:06 Amoxicillin/ Clavulanate Potassium (Augmentin) 500 mg during dialysis ORAL 01/19/18 12:00 02/28/18 11:59 Apixaban (Eliquis) 2.5 mg Q12HR ORAL 01/13/18 21:00 02/12/18 20:59 01/18/18 09:15 Aspirin (ASA) 81 mg DAILY ORAL 01/13/18 09:00 02/12/18 08:59 01/18/18 09:15 Atenolol (Tenormin) 50 mg DAILY ORAL 01/13/18 09:00 02/12/18 08:59 01/17/18 09:06 Chlorhexidine Gluconate (Yumiko-Hex 2%) 1 applic DAILY@1999 TOPIC 01/16/18 20:00 02/15/18 19:59 01/18/18 20:05 Cinacalcet (Sensipar) 60 mg DAILY ORAL 01/13/18 09:00 02/12/18 08:59 01/19/18 08:51 Darunavir (Prezista) 800 mg DAILY ORAL 01/13/18 20:00 02/12/18 19:59 01/19/18 08:51 Diphenhydramine HCl (Benadryl) 25 mg Q4H PRN IVP Itching 01/13/18 08:15 02/12/18 08:14 01/19/18 14:57 Doxycycline Monohydrate (Vibramycin) 100 mg EVERY 12 HOURS ORAL 01/17/18 21:00 02/28/18 20:59 01/19/18 08:51 Gabapentin (Neurontin) 300 mg Q12HR ORAL 01/13/18 09:00 02/12/18 08:59 01/19/18 08:51 Hydromorphone HCl (Dilaudid) 1 mg Q4H PRN IVP Severe Pain (Pain Scale 7-10) 01/16/18 03:00 01/23/18 02:59 01/19/18 14:57 Ondansetron HCl (Zofran) 4 mg Q4H PRN IVP Nausea & Vomiting 01/15/18 09:30 02/14/18 09:29 01/19/18 01:52 Patient Own Medication (Patient's Own Med) 1 ea DAILY@2099 ORAL 01/14/18 21:00 02/13/18 20:59 01/18/18 20:07 Pravastatin Sodium (Pravachol) 20 mg BEDTIME ORAL 01/13/18 21:00 02/12/18 20:59 01/18/18 20:05 Raltegravir (Isentress) 400 mg DAILY@2100 ORAL 01/14/18 21:00 02/13/18 20:59 01/18/18 20:06 Sevelamer Carbonate (Renvela) 2,400 mg THREE TIMES A DAY ORAL 01/16/18 13:00 02/15/18 12:59 01/19/18 08:51 Sari Duncan M.D. Jan 19, 2018 16:31
--- NOTE | 2018-01-19 18:14 | Internal Med Progress Note ---
Subjective Date of Service: Jan 19, 2018 Physician Name Richter,Krystian Attending Physician Nabeel Hoff MD Current Medications Medications (Trade) Dose Ordered Sig/Anum Route PRN Reason Start Time Stop Time Status Last Admin Dose Admin Acetaminophen (Tylenol) 650 mg Q4H PRN ORAL Mild Pain/Temp > 100.5 01/13/18 08:15 02/12/18 08:14 Amoxicillin/ Clavulanate Potassium (Augmentin) 500 mg POSTHD ORAL 01/19/18 17:00 02/28/18 16:59 Amoxicillin/ Clavulanate Potassium (Augmentin) 500 mg QHS ORAL 01/17/18 21:00 02/28/18 20:59 01/18/18 20:06 Amoxicillin/ Clavulanate Potassium (Augmentin) 500 mg during dialysis ORAL 01/19/18 12:00 02/28/18 11:59 Apixaban (Eliquis) 2.5 mg Q12HR ORAL 01/13/18 21:00 02/12/18 20:59 01/18/18 09:15 Aspirin (ASA) 81 mg DAILY ORAL 01/13/18 09:00 02/12/18 08:59 01/18/18 09:15 Atenolol (Tenormin) 50 mg DAILY ORAL 01/13/18 09:00 02/12/18 08:59 01/17/18 09:06 Chlorhexidine Gluconate (Yumiko-Hex 2%) 1 applic DAILY@2000 TOPIC 01/16/18 20:00 02/15/18 19:59 01/18/18 20:05 Cinacalcet (Sensipar) 60 mg DAILY ORAL 01/13/18 09:00 02/12/18 08:59 01/19/18 08:51 Darunavir (Prezista) 800 mg DAILY ORAL 01/13/18 20:00 02/12/18 19:59 01/19/18 08:51 Diphenhydramine HCl (Benadryl) 25 mg Q4H PRN IVP Itching 01/13/18 08:15 02/12/18 08:14 01/19/18 14:57 Doxycycline Monohydrate (Vibramycin) 100 mg EVERY 12 HOURS ORAL 01/17/18 21:00 02/28/18 20:59 01/19/18 08:51 Gabapentin (Neurontin) 300 mg Q12HR ORAL 01/13/18 09:00 02/12/18 08:59 01/19/18 08:51 Hydromorphone HCl (Dilaudid) 1 mg Q4H PRN IVP Severe Pain (Pain Scale 7-10) 01/16/18 03:00 01/23/18 02:59 01/19/18 14:57 Ondansetron HCl (Zofran) 4 mg Q4H PRN IVP Nausea & Vomiting 01/15/18 09:30 02/14/18 09:29 01/19/18 01:52 Patient Own Medication (Patient's Own Med) 1 ea DAILY@2100 ORAL 01/14/18 21:00 02/13/18 20:59 01/18/18 20:07 Pravastatin Sodium (Pravachol) 20 mg BEDTIME ORAL 01/13/18 21:00 02/12/18 20:59 01/18/18 20:05 Raltegravir (Isentress) 400 mg DAILY@2100 ORAL 01/14/18 21:00 02/13/18 20:59 01/18/18 20:06 Sevelamer Carbonate (Renvela) 2,400 mg THREE TIMES A DAY ORAL 01/16/18 13:00 02/15/18 12:59 01/19/18 17:36 Allergies: Coded Allergies: FLUTICASONE (Unverified Allergy, Unknown, 02/23/17) LEVOFLOXACIN (Unverified Allergy, Unknown, 08/22/14) MORPHINE (Unverified Allergy, Unknown, 02/23/17) Uncoded Allergies: nasal spray (Allergy, Unknown, 07/03/15) ROS Limited/Unobtainable: No Constitutional: Reports: no symptoms HEENT: Reports: no symptoms Cardiovascular: Reports: no symptoms Respiratory: Reports: no symptoms Gastrointestinal/Abdominal: Reports: no symptoms Genitourinary: Reports: no symptoms Neurologic/Psychiatric: Reports: no symptoms Subjective 52 YO M admitted with left toe pain, now osteomyelitis. Cover for Int Med-Dr Hoff Objective Last Vital Signs Date Time Temp Pulse Resp B/P (MAP) Pulse Ox O2 Delivery O2 Flow Rate FiO2 01/19/18 15:46 98.1 52 20 109/71 93 98.1 01/19/18 05:32 Room Air Laboratory Tests Test 01/19/18 10:25 White Blood Count 2.9 K/UL (4.8-10.8) L Red Blood Count 4.45 M/UL (4.70-6.10) L Hemoglobin 12.6 G/DL (14.2-18.0) L Hematocrit 39.6 % (42.0-52.0) L Mean Corpuscular Volume 89 FL (80-99) Mean Corpuscular Hemoglobin 28.3 PG (27.0-31.0) Mean Corpuscular Hemoglobin Concent 31.8 G/DL (32.0-36.0) L Red Cell Distribution Width 17.7 % (11.6-14.8) H Platelet Count 81 K/UL (150-450) L Mean Platelet Volume 7.7 FL (6.5-10.1) Neutrophils (%) (Auto) % (45.0-75.0) Lymphocytes (%) (Auto) % (20.0-45.0) Monocytes (%) (Auto) % (1.0-10.0) Eosinophils (%) (Auto) % (0.0-3.0) Basophils (%) (Auto) % (0.0-2.0) Differential Total Cells Counted 100 Neutrophils % (Manual) 50 % (45-75) Lymphocytes % (Manual) 28 % (20-45) Monocytes % (Manual) 16 % (1-10) H Eosinophils % (Manual) 6 % (0-3) H Basophils % (Manual) 0 % (0-2) Band Neutrophils 0 % (0-8) Platelet Estimate Decreased L Platelet Morphology Normal Anisocytosis 1+ Sodium Level 138 MMOL/L (136-145) Potassium Level 4.5 MMOL/L (3.5-5.1) Chloride Level 96 MMOL/L (98-107) L Carbon Dioxide Level 32 MMOL/L (21-32) Anion Gap 11 mmol/L (5-15) Blood Urea Nitrogen 68 mg/dL (7-18) H Creatinine 12.1 MG/DL (0.55-1.30) H Estimat Glomerular Filtration Rate 5.3 mL/min (>60) Glucose Level 97 MG/DL (74-106) Calcium Level 9.1 MG/DL (8.5-10.1) Intake and Output 3/21/18 3/22/18 19:00 07:00 Output Total 3 ml Balance -3 ml Output Urine Total 3 ml # Bowel Movements 1 Objective General Appearance: WD/WN, no apparent distress, alert EENT: PERRL/EOMI, normal ENT inspection Neck: non-tender, normal alignment, supple, normal inspection Cardiovascular: normal peripheral pulses, normal rate, regular rhythm, no gallop/murmur, no JVD Respiratory/Chest: chest wall non-tender, lungs clear, normal breath sounds, no respiratory distress, no accessory muscle use Abdomen: normal bowel sounds, non tender, soft, no organomegaly, no mass Extremities: normal range of motion Neurologic: commercial crabber II-XII grossly normal, no motor/sensory deficits Skin: normal pigmentation, warm/dry Assessment/Plan Problem List: (1) Peripheral vascular disease Assessment & Plan: severe-await vascular surgery consult-Dr Lancaster (2) osteomyelitis left toe 2nd digit Assessment & Plan: MRI=osteomyelitis. Trial of antibiotics due to peripheral vascular dis-See podiratry note (3) HIV (human immunodeficiency virus infection) Assessment & Plan: Continue HAART. Await HIV Viral load. See ID note. (4) HTN (hypertension) (5) DVT (deep venous thrombosis) (6) ESRD (end stage renal disease) Assessment & Plan: See nephrology note. hemodialysis today 01/17/18. (7) Coronary artery disease (8) Atrial fibrillation Status: not improved KRYSTIAN RICHTER Jan 19, 2018 18:14
[2018-01-19] MEDS: Dyna-Hex 2% Top Sol 2oz TOPIC SCH (19:51)
[2018-01-19] MEDS: Isentress 400mg tab ORAL SCH (19:56)
[2018-01-19 20:00] VITALS: BP 120/70
--- NOTE | 2018-01-19 22:29 | Pulmonology Progress Note ---
Assessment/Plan Problems: (1) CHF (congestive heart failure) (2) Asthma (3) ESRD on hemodialysis (4) Peripheral vascular disease (5) Opioid dependence (6) Hypertension (7) Anemia in chronic kidney disease (8) HIV (human immunodeficiency virus infection) Assessment/Plan HD by nephrology HIV w/u in progress Dr. Garza called for podiatry f/u ID recommendations check electrolytes no surgical intervention needed prolonged po abx dc in am after HD needs vascular f/u as out patient Subjective ROS Limited/Unobtainable: No Allergies: Coded Allergies: FLUTICASONE (Unverified Allergy, Unknown, 02/23/17) LEVOFLOXACIN (Unverified Allergy, Unknown, 08/22/14) MORPHINE (Unverified Allergy, Unknown, 02/23/17) Uncoded Allergies: nasal spray (Allergy, Unknown, 07/03/15) Objective Last 24 Hour Vital Signs Date Time Temp Pulse Resp B/P (MAP) Pulse Ox O2 Delivery O2 Flow Rate FiO2 01/19/18 20:25 97.9 01/19/18 20:00 97.9 61 18 120/70 97 Room Air 97.9 01/19/18 19:55 98.1 01/19/18 15:46 98.1 52 20 109/71 93 98.1 01/19/18 14:57 97.5 01/19/18 12:00 97.5 54 20 127/73 93 97.5 01/19/18 10:11 97.6 01/19/18 08:25 97.6 66 20 127/67 92 97.6 01/19/18 06:14 97.6 01/19/18 05:32 97.6 57 20 136/74 93 Room Air 97.6 01/19/18 01:52 97.2 01/19/18 00:31 97.2 55 20 124/53 99 Room Air 97.2 Intake and Output 01/18/18 01/19/18 19:00 07:00 Output Total 3 ml Balance -3 ml Output Urine Total 3 ml # Bowel Movements 1 Objective General Appearance: WD/WN, no apparent distress Lines, tubes and drains: peripheral HEENT: normocephalic, anicteric Neck: non-tender, normal alignment Respiratory/Chest: chest wall non-tender, clear Cardiovascular/Chest: normal peripheral pulses Abdomen: normal bowel sounds EXt: no C/C/E Laboratory Tests 01/19/18 10:25: White Blood Count 2.9L, Red Blood Count 4.45L, Hemoglobin 12.6L, Hematocrit 39.6L, Mean Corpuscular Volume 89, Mean Corpuscular Hemoglobin 28.3, Mean Corpuscular Hemoglobin Concent 31.8L, Red Cell Distribution Width 17.7H, Platelet Count 81L, Mean Platelet Volume 7.7, Neutrophils (%) (Auto) , Lymphocytes (%) (Auto) , Monocytes (%) (Auto) , Eosinophils (%) (Auto) , Basophils (%) (Auto) , Differential Total Cells Counted 100, Neutrophils % ( Manual) 50, Lymphocytes % (Manual) 28, Monocytes % (Manual) 16H, Eosinophils % ( Manual) 6H, Basophils % (Manual) 0, Band Neutrophils 0, Platelet Estimate DecreasedL, Platelet Morphology Normal, Anisocytosis 1+, Sodium Level 138, Potassium Level 4.5, Chloride Level 96L, Carbon Dioxide Level 32, Anion Gap 11, Blood Urea Nitrogen 68H, Creatinine 12.1H, Estimat Glomerular Filtration Rate 5.3, Glucose Level 97, Calcium Level 9.1 Current Medications Medications (Trade) Dose Ordered Sig/Anum Route PRN Reason Start Time Stop Time Status Last Admin Dose Admin Acetaminophen (Tylenol) 650 mg Q4H PRN ORAL Mild Pain/Temp > 100.5 01/13/18 08:15 02/12/18 08:14 Amoxicillin/ Clavulanate Potassium (Augmentin) 500 mg POSTHD ORAL 01/19/18 17:00 02/28/18 16:59 Amoxicillin/ Clavulanate Potassium (Augmentin) 500 mg QHS ORAL 01/17/18 21:00 02/28/18 20:59 01/19/18 19:52 Amoxicillin/ Clavulanate Potassium (Augmentin) 500 mg during dialysis ORAL 01/19/18 12:00 02/28/18 11:59 Apixaban (Eliquis) 2.5 mg Q12HR ORAL 01/13/18 21:00 02/12/18 20:59 01/18/18 09:15 Aspirin (ASA) 81 mg DAILY ORAL 01/13/18 09:00 02/12/18 08:59 01/18/18 09:15 Atenolol (Tenormin) 50 mg DAILY ORAL 01/13/18 09:00 02/12/18 08:59 01/17/18 09:06 Chlorhexidine Gluconate (Yumiko-Hex 2%) 1 applic DAILY@1999 TOPIC 01/16/18 20:00 02/15/18 19:59 01/19/18 19:51 Cinacalcet (Sensipar) 60 mg DAILY ORAL 01/13/18 09:00 02/12/18 08:59 01/19/18 08:51 Darunavir (Prezista) 800 mg DAILY ORAL 01/13/18 20:00 02/12/18 19:59 01/19/18 08:51 Diphenhydramine HCl (Benadryl) 25 mg Q4H PRN IVP Itching 01/13/18 08:15 02/12/18 08:14 01/19/18 19:54 Doxycycline Monohydrate (Vibramycin) 100 mg EVERY 12 HOURS ORAL 01/17/18 21:00 02/28/18 20:59 01/19/18 19:53 Gabapentin (Neurontin) 300 mg Q12HR ORAL 01/13/18 09:00 02/12/18 08:59 01/19/18 19:54 Hydromorphone HCl (Dilaudid) 1 mg Q4H PRN IVP Severe Pain (Pain Scale 7-10) 01/16/18 03:00 01/23/18 02:59 01/19/18 19:55 Ondansetron HCl (Zofran) 4 mg Q4H PRN IVP Nausea & Vomiting 01/15/18 09:30 02/14/18 09:29 01/19/18 01:52 Patient Own Medication (Patient's Own Med) 1 ea DAILY@2099 ORAL 01/14/18 21:00 02/13/18 20:59 01/19/18 19:55 Pravastatin Sodium (Pravachol) 20 mg BEDTIME ORAL 01/13/18 21:00 02/12/18 20:59 01/19/18 19:53 Raltegravir (Isentress) 400 mg DAILY@2099 ORAL 01/14/18 21:00 02/13/18 20:59 01/19/18 19:56 Sevelamer Carbonate (Renvela) 2,400 mg THREE TIMES A DAY ORAL 01/16/18 13:00 02/15/18 12:59 01/19/18 17:36 Srinivasan Patterson MD Jan 19, 2018 22:29
[2018-01-20] MEDS: DiphenhydrAMINE 50mg/ml Inj IVP PRN ×2 (02:26→07:51)
[2018-01-20] MEDS: HYDROmorphone 1mg/ml Carpuject IVP PRN ×2 (02:26→07:42)
[2018-01-20 04:15] VITALS: BP 122/77
[2018-01-20 08:00] VITALS: BP 126/82
[2018-01-20] MEDS: Aspirin Baby 81mg ORAL SCH (09:15)
[2018-01-20] MEDS: Eliquis 2.5mg tablet ORAL SCH (09:15)
[2018-01-20 09:23] VITALS: BP 126/82
[2018-01-20] MEDS: Sensipar 30mg Tab ORAL SCH (09:23)
[2018-01-20 09:56] LABS: HEMATOCRIT 38.9 % (42.0-52.0); HEMOGLOBIN 12.1 G/DL (14.2-18.0); MEAN CORPUSCULAR VOLUME 90 FL (80-99); PLATELET COUNT 85 K/UL (150-450); RED BLOOD COUNT 4.31 M/UL (4.70-6.10); WHITE BLOOD COUNT 3.9 K/UL (4.8-10.8)
[2018-01-20 10:36] LABS: ANION GAP 11 mmol/L (5-15); BLOOD UREA NITROGEN 50 mg/dL (7-18); CARBON DIOXIDE 32 MMOL/L (21-32); CHLORIDE 95 MMOL/L (98-107); CREATININE 10.1 MG/DL (0.55-1.30); SODIUM 137 MMOL/L (136-145)
[2018-01-20] MEDS ORDERED: DOXYCYCLINE HY100 M6 PO (11:13)
[2018-01-20] MEDS ORDERED: AUGMENTIN 500-1 EACH ORAL (11:14)
--- NOTE | 2018-01-20 15:19 | Nephrology Progress Note ---
Assessment/Plan Problem List: (1) ESRD on hemodialysis Assessment -. Human immunodeficiency virus. -. End-stage renal disease. on HD T.Th.Sat -. Hypertension. -. Asthma. -. Atrial fibrillation. -. Gastroesophageal reflux disease. -. Hypertension. -. Coronary artery disease. -. History of pericardial effusion. -. Peripheral vascular disease. Plan Plan: HD 01/19 next 01/21 if in house Per PMD Subjective ROS Limited/Unobtainable: No Interval Events/Complaints seen 9 am Objective Objective Last 24 Hour Vital Signs Date Time Temp Pulse Resp B/P (MAP) Pulse Ox O2 Delivery O2 Flow Rate FiO2 01/20/18 09:23 60 126/82 01/20/18 08:00 98.1 60 18 126/82 93 Room Air 98.1 01/20/18 04:15 97.7 60 20 122/77 93 Room Air 97.7 01/20/18 02:56 97.9 01/20/18 02:26 97.9 01/19/18 20:00 97.9 61 18 120/70 97 Room Air 97.9 01/19/18 19:55 98.1 01/19/18 15:46 98.1 52 20 109/71 93 98.1 Intake and Output 01/19/18 01/20/18 19:00 07:00 Intake Total 600 ml Balance 600 ml Intake Oral 600 ml # Voids 3 # Bowel Movements 1 Laboratory Tests 01/20/18 09:10: White Blood Count 3.9L, Red Blood Count 4.31L, Hemoglobin 12.1L, Hematocrit 38.9L, Mean Corpuscular Volume 90, Mean Corpuscular Hemoglobin 28.1, Mean Corpuscular Hemoglobin Concent 31.2L, Red Cell Distribution Width 18.0H, Platelet Count 85L, Mean Platelet Volume 7.2, Neutrophils (%) (Auto) , Lymphocytes (%) (Auto) , Monocytes (%) (Auto) , Eosinophils (%) (Auto) , Basophils (%) (Auto) , Differential Total Cells Counted 100, Neutrophils % ( Manual) 51, Lymphocytes % (Manual) 30, Monocytes % (Manual) 14H, Eosinophils % ( Manual) 3, Basophils % (Manual) 2, Band Neutrophils 0, Platelet Estimate DecreasedL, Platelet Morphology Normal, Anisocytosis 1+, Sodium Level 137, Potassium Level 5.0, Chloride Level 95L, Carbon Dioxide Level 32, Anion Gap 11, Blood Urea Nitrogen 50H, Creatinine 10.1H, Estimat Glomerular Filtration Rate 6.5, Glucose Level 88, Calcium Level 9.0 Height (Feet): 6 Height (Inches): 3.00 Weight (Pounds): 215 General Appearance: no apparent distress Objective PE not change RALEIGH VAZ Jan 20, 2018 15:19
--- NOTE | 2018-01-20 17:58 | Internal Med Progress Note ---
Subjective Date of Service: Jan 20, 2018 Physician Name Fabricio Richter Attending Physician Nabeel Hoff MD Allergies: Coded Allergies: FLUTICASONE (Unverified Allergy, Unknown, 02/23/17) LEVOFLOXACIN (Unverified Allergy, Unknown, 08/22/14) MORPHINE (Unverified Allergy, Unknown, 02/23/17) Uncoded Allergies: nasal spray (Allergy, Unknown, 07/03/15) ROS Limited/Unobtainable: No Constitutional: Reports: no symptoms HEENT: Reports: no symptoms Cardiovascular: Reports: no symptoms Respiratory: Reports: no symptoms Gastrointestinal/Abdominal: Reports: no symptoms Genitourinary: Reports: no symptoms Neurologic/Psychiatric: Reports: no symptoms Subjective 52 YO M admitted with left toe pain, now osteomyelitis. Cover for Int Med-Dr Hoff Objective Last Vital Signs Date Time Temp Pulse Resp B/P (MAP) Pulse Ox O2 Delivery O2 Flow Rate FiO2 01/20/18 09:23 60 126/82 01/20/18 08:00 98.1 18 93 Room Air 98.1 Laboratory Tests Test 01/20/18 09:10 White Blood Count 3.9 K/UL (4.8-10.8) L Red Blood Count 4.31 M/UL (4.70-6.10) L Hemoglobin 12.1 G/DL (14.2-18.0) L Hematocrit 38.9 % (42.0-52.0) L Mean Corpuscular Volume 90 FL (80-99) Mean Corpuscular Hemoglobin 28.1 PG (27.0-31.0) Mean Corpuscular Hemoglobin Concent 31.2 G/DL (32.0-36.0) L Red Cell Distribution Width 18.0 % (11.6-14.8) H Platelet Count 85 K/UL (150-450) L Mean Platelet Volume 7.2 FL (6.5-10.1) Neutrophils (%) (Auto) % (45.0-75.0) Lymphocytes (%) (Auto) % (20.0-45.0) Monocytes (%) (Auto) % (1.0-10.0) Eosinophils (%) (Auto) % (0.0-3.0) Basophils (%) (Auto) % (0.0-2.0) Differential Total Cells Counted 100 Neutrophils % (Manual) 51 % (45-75) Lymphocytes % (Manual) 30 % (20-45) Monocytes % (Manual) 14 % (1-10) H Eosinophils % (Manual) 3 % (0-3) Basophils % (Manual) 2 % (0-2) Band Neutrophils 0 % (0-8) Platelet Estimate Decreased L Platelet Morphology Normal Anisocytosis 1+ Sodium Level 137 MMOL/L (136-145) Potassium Level 5.0 MMOL/L (3.5-5.1) Chloride Level 95 MMOL/L (98-107) L Carbon Dioxide Level 32 MMOL/L (21-32) Anion Gap 11 mmol/L (5-15) Blood Urea Nitrogen 50 mg/dL (7-18) H Creatinine 10.1 MG/DL (0.55-1.30) H Estimat Glomerular Filtration Rate 6.5 mL/min (>60) Glucose Level 88 MG/DL (74-106) Calcium Level 9.0 MG/DL (8.5-10.1) Intake and Output 01/19/18 01/20/18 19:00 07:00 Intake Total 600 ml Balance 600 ml Intake Oral 600 ml # Voids 3 # Bowel Movements 1 Objective General Appearance: WD/WN, no apparent distress, alert EENT: PERRL/EOMI, normal ENT inspection Neck: non-tender, normal alignment, supple, normal inspection Cardiovascular: normal peripheral pulses, normal rate, regular rhythm, no gallop/murmur, no JVD Respiratory/Chest: chest wall non-tender, lungs clear, normal breath sounds, no respiratory distress, no accessory muscle use Abdomen: normal bowel sounds, non tender, soft, no organomegaly, no mass Extremities: normal range of motion Neurologic: 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 Doxycycline 100 mg BID and augmentin 500 mg qD Day (3) HIV (human immunodeficiency virus infection) Assessment & Plan: Continue HAART. Await HIV Viral load. See ID note. (4) HTN (hypertension) (5) DVT (deep venous thrombosis) (6) ESRD (end stage renal disease) Assessment & Plan: See nephrology note. hemodialysis today 01/17/18. (7) Coronary artery disease (8) Atrial fibrillation Assessment/Plan Discharge home today. F/U Dr Lancaster as outpatient. FABRICIO RICHTER Jan 20, 2018 17:58
--- NOTE | 2018-01-24 08:09 | Discharge Summary ---
Discharge Summary Hospital Course Date of Admission Jan 13, 2018 at 04:25 Date of Discharge Jan 20, 2018 at 11:45 Admitting Diagnosis LEFT 2ND TOE OSTEOMYELITIS HPI Larry Sen is a 52 year old male who was admitted on Jan 13, 2018 at 04:25 for Left 2ND Toe Osteomyelitis Hospital Course dc summary #[id number] Discharge Medications Continued Medications: Acetaminophen (Acetaminophen) 650 Mg/20.3 Ml Soln 650 MG ORAL Q4HR PRN for Prn Headache/Temp > 101, ML 0 Refills Acyclovir* (Zovirax*) 800 Mg Tablet 400 MG ORAL DAILY, #30 CAP 0 Refills (This prescription has been renewed) Amoxicillin/Potassium Clav 500-125 Tablet* (Augmentin 500-125 Tablet*) 1 Each Tablet 1 TAB ORAL DAILY, TAB Aspirin Ec* (Aspirin Ec*) 81 Mg Tablet.dr 81 MG ORAL DAILY, TAB (This prescription has been renewed) Atenolol* (Tenormin*) 50 Mg Tablet 50 MG ORAL DAILY, TAB Cinacalcet Hcl (Sensipar) 60 Mg Tablet 60 MG ORAL DAILY, #60 Darunavir Ethanolate (Prezista) 800 Mg Tablet 800 MG ORAL DAILY, #30 Diphenhydramine HCl (Diphenhydramine HCl) 50 Mg/Ml Soln 25 MG IV 3XW PRN for before each dialysis Doxycycline Hyclate (Doxycycline Hyclate) 100 Mg Tablet 100 MG PO q12, TAB (This prescription has been renewed) Gabapentin* (Gabapentin*) 300 Mg Capsule 300 MG ORAL BID, CAP 0 Refills (This prescription has been renewed) Meloxicam* (Meloxicam*) 7.5 Mg Tablet 1 TAB ORAL HS, #60 Ondansetron Hcl (Ondansetron Hcl) 4 Mg Tablet 1 TAB ORAL PRN PRN for Nausea & Vomiting, #30 Oxycodone Hcl* (Oxycodone Hcl*) 15 Mg Tablet 30 MG ORAL Q6H PRN for For Pain, TAB Pravastatin Sod* (Pravastatin Sod*) 20 Mg Tablet 40 MG ORAL DAILY, TAB (This prescription has been renewed) Raltegravir (Isentress) 400 Mg Tab 1 TAB ORAL DAILY, #60 Ritonavir (Norvir) 100 Mg Tablet 1 TAB ORAL DAILY, #30 Sevelamer Carbonate (Renvela) 800 Mg Tab 5 TAB ORAL THREE TIMES A DAY, #360 with meals Sevelamer Hcl (Renagel) 800 Mg Tablet 800 MG ORAL THREE TIMES A DAY, #90 TAB 0 Refills (This prescription has been renewed) Simvastatin (Zocor) 20 Mg Tablet 20 MG ORAL BEDTIME, TAB (This prescription has been renewed) Warfarin Sod* (Warfarin Sod*) 5 Mg Tablet 9 MG ORAL DAILY, #30 Discharge Condition Upon Discharge: stable Discharge Disposition Patient was discharged to Home (01) Discharge Instructions Discharge Instructions Special Instructions I have been assigned to complete a D/C Summary on this account. I was not involved in the patient management Tami Simmons NP (Vanchtein) Jan 24, 2018 08:09
--- NOTE | 2018-01-25 00:30 | Discharge Summary 2 SIG ---
DATE OF ADMISSION: 01/13/2018 DATE OF DISCHARGE: 01/20/2018 REASON FOR ADMISSION: The patient is a 52-year-old male with past medical history significant for asthma, hypertension, chronic atrial fibrillation, HIV status, end-stage renal disease on on hemodialysis, severe PVD status post amputation third and fourth toe, GERD, opioid dependency presented to emergency room for evaluation due to the left hand and left foot pain. He also reported discoloration of his left second toe for about two days. He reported recent change in color of his left hand. After blood clot was noted to be in the left forearm, he was on anticoagulation with Eliquis. Workup in the emergency room revealed no leukocytosis, mild anemia, hemoglobin 12.9, hematocrit 41. Renal parameters were consistent with history of end-stage renal disease, stable electrolytes. Vital signs were stable. EKG shows normal sinus rhythm, no acute ischemic changes. Left hand x-ray revealed no acute bony process shows some postsurgical changes, amputation of the second distal phalanx. X-ray of the left foot revealed no acute bony trauma and status post amputation of the third and fourth digit at the level of metatarsophalangeal joints. The patient was admitted for further management with diagnoses of probable osteomyelitis left second toe, HIV status, end-stage renal disease, hypertension, anemia of chronic disease, atrial fibrillation, coronary artery disease, asthma, paresthesia left-sided. HOSPITAL COURSE: The patient admitted. ID consult was requested. The patient started on empiric antibiotics. Subsequently, the patient undergone MRI of the left foot which shows finding consistent with osteomyelitis of the second distal phalanx and likely the head of the second middle phalanx. Antibiotic regimen was optimized under ID directions. The patient will need initially conservative management with 42 days of oral antibiotic doxycycline and Augmentin. If no improvement, they will need amputation. Surgeon seen the patient in the hospital. The patient had severe peripheral vascular disease status post amputation of third and fourth toe on the left foot and also left hand of the second distal phalanx. Per surgery, the patient with known history of peripheral vascular disease and vasculopathy, likely had worsening of peripheral vascular disease but no acute intervention needed at this time. No signs of acute infection. The patient need to follow up with his vascular surgeon, Dr. Lancaster that he follows at [facility] for angiography. The patient may benefit from angioplasty or intervention if indicated. The patient likely will need amputation of the second toe given vascular history and significant peripheral vascular disease that recommended to be done by vascular surgeon, which could be done as outpatient basis given that it is chronic and no acute infectious process. Surgeon cleared the patient for discharge. The patient seen by shellfish shucker as well. The patient has shellfish shucker at [facility]. Dr. Talavera that he followed up. Wound care provided under shellfish shucker's recommendation for non-pressure ulcer left second toe and recommended to follow up as outpatient with the patient's vascular surgeon and shellfish shucker. Fertilizer Applicator followed the patient for hemodialysis. While in the hospital, hemodialysis was arranged, renal parameters and electrolytes were closely monitored. Electrolytes corrected as needed. Cardiorenal parameters and volumes were closely monitored. Fast Food Crew Lead followed for history of asthma. Pulmonary status remained stable. Supplemental oxygen and pulmonary toilet were on board as needed. No signs of respiratory distress. Pulse oximetry stable on room air prior to discharge. Implementation Specialist Payroll closely followed the patient for management of atrial fibrillation and hypertension. According to oil recovery operator, the patient had chronic atrial fibrillation and is on beta-jerica (atenolol for rate control as well as anticoagulation with Eliquis). Blood pressure was managed with atenolol and of course hemodialysis. Stress test revealed calculated ejection fraction of 55%, nonischemic clinical response to pharmacological stress and equivocal small focus of reversible decreased perfusion in the anterior wall near the apex. SPECT artifact, but a small focus of ischemia could also be possible. The patient had no chest pain, no shortness of breath, no cardiac complaints. Blood pressure remained stable. Heart rate controlled. The patient was on HAART therapy for HIV. Viral load of 460. The patient to follow up with outpatient HIV provider. The patient was stable for discharge. Hemoglobin and hematocrit remained at the baseline. No need for transfusion. Mild anemia. FINAL DIAGNOSES: Include: 1. Osteomyelitis left foot second toe. 2. Atrial fibrillation, chronic. 3. Coronary artery disease. 4. Asthma. 5. History of pericardial effusion. 6. Hypertension. 7. HIV status. 8. End-stage renal disease, on hemodialysis. 9. Severe PVD with history of left foot amputation. 10. Opioid dependency. 11. GERD. 12. Non-pressure left second toe ulcer. 13. Anemia of chronic kidney disease. 14. History of pericardial effusion. DISCHARGE MEDICATIONS: See medication reconciliation list. DISCHARGE INSTRUCTIONS: The patient discharged home. Followup as outpatient with hemodialysis, shellfish shucker, and vascular surgeon at [facility] and also with HIV provider. Stressed compliance with the medication regimen. Of note, the patient noted to have a thrombocytopenia and leukopenia. Counts were closely monitored. It is likely related to HIV status as per ID. Nabeel Hoff M.D. I have been assigned to dictate discharge summary on this account and I was not involved in the patient's management. Tami mullinsosbaldo N.PChayo DR: Anna JOB#: [id number] CC:
== END 2018-01-20 11:45 | disposition home or self-care (01) | DRG 539 ==
LOC: EMR 02:29 → 4W 04:25 → EDBEDREQSVC 04:57 → EDBEDREQ 05:19
PROC: 5A1D70Z Performance of Urinary Filtration, Intermittent, Less than 6 Hours Per Day (ICD-10-PCS; principal; 2018-01-14)
PROC: 5A1D70Z Performance of Urinary Filtration, Intermittent, Less than 6 Hours Per Day (ICD-10-PCS; 2018-01-17)
PROC: 5A1D70Z Performance of Urinary Filtration, Intermittent, Less than 6 Hours Per Day (ICD-10-PCS; 2018-01-19)
DX: M86.172 Other acute osteomyelitis, left ankle and foot (principal); B20 Human immunodeficiency virus [HIV] disease; N18.6 End stage renal disease; I96 Gangrene, not elsewhere classified; I12.0 Hypertensive chronic kidney disease with stage 5 chronic kidney disease or end stage renal disease; I48.2 Chronic atrial fibrillation; F11.20 Opioid dependence, uncomplicated; I82.722 Chronic embolism and thrombosis of deep veins of left upper extremity; L97.529 Non-pressure chronic ulcer of other part of left foot with unspecified severity; D63.1 Anemia in chronic kidney disease; Z99.2 Dependence on renal dialysis; I73.9 Peripheral vascular disease, unspecified; K29.70 Gastritis, unspecified, without bleeding; I25.10 Atherosclerotic heart disease of native coronary artery without angina pectoris; J45.909 Unspecified asthma, uncomplicated; Z88.6 Allergy status to analgesic agent; Z88.1 Allergy status to other antibiotic agents; Z88.8 Allergy status to other drugs, medicaments and biological substances; Z89.421 Acquired absence of other right toe(s); Z89.422 Acquired absence of other left toe(s); K21.9 Gastro-esophageal reflux disease without esophagitis; E78.5 Hyperlipidemia, unspecified; R20.2 Paresthesia of skin; Z79.01 Long term (current) use of anticoagulants; M79.642 Pain in left hand
CPT/HCPCS: 36415; 78452; 80048; 80053; 80061; 82550; 82607; 82977; 83036; 83735; 83880; 84100; 84443; 84550; 85007; 85025; 85610; 85651; 85730; 86140; 86360; 87081; 87536; 93005; 93017; 93306; 93925; 99285; J2405; J2785

== ENCOUNTER 2018-02-06 01:42 | Emergency (ER) | payer MEDICARE, MEDICAID ==
[~2018-02-06] VITALS: Ht 190.5 cm; Wt 81.2 kg
[~2018-02-06 01:42] MED LIST changes: +AUGMENTIN 500-1 EACH ORAL; +DOXYCYCLINE HY100 M6 PO
[2018-02-06 02:30] VITALS: BP 146/76
[2018-02-06] MEDS ORDERED: GABAPENTIN300 MG ORAL (02:34)
--- NOTE | 2018-02-06 02:34 | Emergency Room Report ---
History of Present Illness General Chief Complaint: Pain Source: Patient Present Illness HPI This a 52-year-old male with history of renal failure and HIV. He is on hemodialysis. He has a history of chronic pain. He presents with chief complaint of numbness and tenderness to his left hand. Similar symptom in the past. He has a history of clotted graft in his left arm and is currently taking liquids. No trauma. No fever chills but no nausea no vomiting. Pain is 10 out of 10. He is out of his gabapentin. Still taking oxycodone. Allergies: Coded Allergies: FLUTICASONE (Unverified Allergy, Unknown, 02/23/17) LEVOFLOXACIN (Unverified Allergy, Unknown, 08/22/14) MORPHINE (Unverified Allergy, Unknown, 02/23/17) Patient History Past Medical History: see triage record, old chart reviewed, renal disease, dialysis Past Surgical History: other Pertinent Family History: none Social History: Denies: smoking Immunizations: other Reviewed Nursing Documentation: PMH: Agreed; PSxH: Agreed Nursing Documentation-PMH Past Medical History: No History, Except For Hx Hypertension: Yes - High cholesterol Hx Asthma: Yes Hx Cancer: No Hx Gastrointestinal Problems: Yes Hx Dialysis: Yes - Tues/thurs/sat Hx Neurological Problems: No Hx Seizures: Yes Hx Syncope: Yes Review of Systems Eye: Denies: eye pain, blurred vision ENT: Denies: ear pain, nose congestion, throat swelling Respiratory: Denies: cough, shortness of breath Cardiovascular: Denies: chest pain, palpitations Gastrointestinal: Denies: abdominal pain, diarrhea, nausea, vomiting Musculoskeletal: Denies: back pain, joint pain Skin: Denies: rash Neurological: Denies: headache, numbness Endocrine: Denies: increased thirst, increased urine Hematologic/Lymphatic: Denies: easy bruising All Other Systems: negative except mentioned in HPI Physical Exam Vital Signs Date Time Temp Pulse Resp B/P (MAP) Pulse Ox O2 Delivery O2 Flow Rate FiO2 02/06/18 01:49 97.9 73 16 146/76 98 Room Air 97.9 vitals normal Sp02 EP Interpretation: reviewed, normal General Appearance: well appearing, no apparent distress, alert Head: normocephalic, atraumatic Eyes: bilateral eye PERRL, bilateral eye EOMI ENT: hearing grossly normal, normal pharynx Neck: full range of motion, supple, no meningismus Respiratory: chest non-tender, lungs clear, normal breath sounds Cardiovascular #1: regular rate, rhythm, no murmur Gastrointestinal: normal bowel sounds, non tender, no mass, no organomegaly, no bruit, non-distended Musculoskeletal: back normal, gait/station normal, normal range of motion, other - Left hand no edema. He has tautness to the skin of the fingers. Psychiatric: mood/affect normal Skin: warm/dry Medical Decision Making Diagnostic Impression: Primary Impression: Left hand paresthesia Additional Impression: Opioid dependence Qualified Codes: F11.20 - Opioid dependence, uncomplicated ER Course Patient with paresthesia and pain to the left hand. This is a chronic issue. No evidence of any trauma. No evidence of any new clot. He's already on Eliquis. We'll discharge home with gabapentin. Last Vital Signs Date Time Temp Pulse Resp B/P (MAP) Pulse Ox O2 Delivery O2 Flow Rate FiO2 02/06/18 01:49 97.9 73 16 146/76 98 Room Air 97.9 Status: unchanged Disposition: HOME, SELF-CARE Condition: Stable Scripts Gabapentin* (GABAPENTIN*) 300 Mg Capsule 300 MG ORAL BEDTIME, #30 CAP Prov: BRAD RAMEY M.D. 02/06/18 Referrals: Nabeel Hoff MD (PCP) Patient Instructions: PAIN, Uncertain Cause (Acute) Additional Instructions: Follow-up with your doctor in 7 days. Return if symptom worsen. BRAD RAMEY M.D. Feb 06, 2018 02:34
== END 2018-02-06 02:50 | disposition home or self-care (01) ==
LOC: EMR 02:25
DX: R20.2 Paresthesia of skin (principal); F11.20 Opioid dependence, uncomplicated; M79.642 Pain in left hand; G89.29 Other chronic pain; J45.909 Unspecified asthma, uncomplicated; I12.0 Hypertensive chronic kidney disease with stage 5 chronic kidney disease or end stage renal disease; N18.6 End stage renal disease; N19 Unspecified kidney failure; Z99.2 Dependence on renal dialysis; Z88.8 Allergy status to other drugs, medicaments and biological substances; Z88.5 Allergy status to narcotic agent; Z88.1 Allergy status to other antibiotic agents
CPT/HCPCS: 99283

== ENCOUNTER 2019-04-23 22:36 | Inpatient (IN) | payer MEDICARE, MEDICAID ==
[~2019-04-23] VITALS: Ht 190.5 cm; Wt 82.6 kg
--- NOTE | 2019-04-23 22:41 | NUR ---
ED Nurse Note: Keo STREETER for complaint of pain 08/09 on RLE. Pt states he fell during yazdanism while walking down a step, then fell for a second time tonight at home. Pt states pain has not subsided even though he takes dilaudid and oxycodone as prescribed @ home. Addendum: 04/23/19 at 2310 by [email or web address] Dialysis port located on right thigh.
--- NOTE | 2019-04-23 23:14 | Emergency Room Report ---
History of Present Illness General Chief Complaint: Lower Extremity Injury Source: Patient Present Illness HPI This is a 53-year-old male with multiple medical problems. He has chronic pain and currently taking oxycodone. He also has renal failure on hemodialysis. He presents with right hip pain. He has chronic left knee pain and said he need knee replacement. He did complain of right hip pain for a week. Pain going down his leg. He slipped and fell yesterday and is gotten worse. When he bear weight he has severe pain. Pain is 9 out of 10. No nausea no vomiting. No swelling. No incontinence of bowel or urine. Allergies: Coded Allergies: FLUTICASONE (Unverified Allergy, Unknown, 02/23/17) LEVOFLOXACIN (Unverified Allergy, Unknown, 08/22/14) MORPHINE (Unverified Allergy, Unknown, 02/23/17) Patient History Past Medical History: see triage record, old chart reviewed, HTN, renal disease , dialysis Past Surgical History: other Pertinent Family History: none Social History: Denies: smoking Immunizations: other Reviewed Nursing Documentation: PMH: Agreed; PSxH: Agreed Nursing Documentation-PMH Hx Hypertension: Yes Hx Asthma: Yes Hx Cancer: No Hx Gastrointestinal Problems: Yes Hx Dialysis: Yes - T Th SAT R leg shunt Hx Neurological Problems: No Hx Seizures: Yes Hx Syncope: Yes Review of Systems Eye: Denies: eye pain, blurred vision ENT: Denies: ear pain, nose congestion, throat swelling Respiratory: Denies: cough, shortness of breath Cardiovascular: Denies: chest pain, palpitations Gastrointestinal: Denies: abdominal pain, diarrhea, nausea, vomiting Musculoskeletal: Reports: joint pain; Denies: back pain Skin: Denies: rash Neurological: Denies: headache, numbness Endocrine: Denies: increased thirst, increased urine Hematologic/Lymphatic: Denies: easy bruising All Other Systems: negative except mentioned in HPI Physical Exam Vital Signs Date Time Temp Pulse Resp B/P (MAP) Pulse Ox O2 Delivery O2 Flow Rate FiO2 04/23/19 22:40 99.0 79 18 139/79 (99) 95 Room Air Vitals normal Sp02 EP Interpretation: reviewed, normal General Appearance: well appearing, no apparent distress, alert Head: normocephalic, atraumatic Eyes: bilateral eye PERRL, bilateral eye EOMI ENT: hearing grossly normal, normal pharynx Neck: full range of motion, supple, no meningismus Respiratory: chest non-tender, lungs clear, normal breath sounds Cardiovascular #1: regular rate, rhythm, no murmur Gastrointestinal: normal bowel sounds, non tender, no mass, no organomegaly, no bruit, non-distended Musculoskeletal: back normal, normal range of motion, other - tenderness to right hip Psychiatric: mood/affect normal Skin: warm/dry Medical Decision Making Diagnostic Impression: Primary Impression: Fracture of head of right femur Qualified Codes: S72.051A - Unspecified fracture of head of right femur, initial encounter for closed fracture ER Course Patient presents with a fall and right hip pain. CT scan showed a subchondral impaction fracture of the right femoral head. No dislocation. Because of this , patient will be admitted versus transfer for orthopedic evaluation. CT/MRI/US Diagnostic Results CT/MRI/US Diagnostic Results : Imaging Test Ordered: CT right hip Impression Read by radiologist. Subchondral impaction fracture of the superior right femoral head. Last Vital Signs Date Time Temp Pulse Resp B/P (MAP) Pulse Ox O2 Delivery O2 Flow Rate FiO2 04/23/19 22:40 99.0 79 18 139/79 (99) 95 Room Air Status: improved Disposition: ADMITTED INPATIENT Condition: Serious Lucas Steven MD Apr 23, 2019 23:14
[2019-04-23] MEDS ORDERED: Albuterol/Ipratropium 3ml neb HHN PRN (23:15)
[2019-04-23] MEDS ORDERED: oxyCODONE 15mg IR tab ORAL PRN (23:15)
[2019-04-23] MEDS ORDERED: Miralax 17gm pkt ORAL PRN (23:15)
[2019-04-23] MEDS ORDERED: HYDROmorphone 1mg/ml Carpuject IM ONE (23:15)
[2019-04-24] MEDS ORDERED: HYDROmorphone 1mg/ml Carpuject IVP ONE (01:30)
--- NOTE | 2019-04-24 01:30 | NUR ---
ED Nurse Note: Pt resting comfortably. VSS, showing no signs of acute distress. Will continue to monitor.
[2019-04-24 01:42] LABS: BASOPHILS % (AUTO) 2.5 % (0.0-2.0); EOSINOPHILS % (AUTO) 3.9 % (0.0-3.0); LYMPHOCYTES % (AUTO) 15.9 % (20.0-45.0); MEAN CORPUSCULAR VOLUME 79 FL (80-99); MONOCYTES % (AUTO) 18.7 % (1.0-10.0); PLATELET COUNT 108 K/UL (150-450); RED BLOOD COUNT 4.44 M/UL (4.70-6.10); RED CELL DISTRIBUTION WIDTH 20.4 % (11.6-14.8); WHITE BLOOD COUNT 4.4 K/UL (4.8-10.8)
[2019-04-24 01:59] LABS: ALBUMIN 3.2 G/DL (3.4-5.0); ANION GAP 18 mmol/L (5-15); BLOOD UREA NITROGEN 97 mg/dL (7-18); CALCIUM 10.7 MG/DL (8.5-10.1); CARBON DIOXIDE 17 MMOL/L (21-32); CHLORIDE 100 MMOL/L (98-107); CREATININE 13.5 MG/DL (0.55-1.30); PHOSPHORUS 12.3 MG/DL (2.5-4.9); SODIUM 135 MMOL/L (136-145)
[2019-04-24 02:05] LABS: POTASSIUM 6.2 MMOL/L (3.5-5.1)
[2019-04-24] MEDS ORDERED: Sodium Polystyrene Sulfonate 15gm Powder ORAL ONE (02:15)
--- NOTE | 2019-04-24 02:21 | NUR ---
ED Nurse Note: Pt transferred to M/S by flagsetter. Report given to JEFRY Caraballo. Pt A/Ox4, showing no signs of acute distress. Pt being transferred with REJ 20g, asymptomatic and patent.
--- NOTE | 2019-04-24 02:37 | NUR ---
NURSE NOTES: Received patient from ED, via gurney, patient is awake, alert, oriented, able to make his needs known,on renal diet, room air, has right leg Perma Cath, used for dialysis with [facility] T//Tue, last treatment was Tuesday04/21/19. IV on the right EJ 20 [place]. Oriented to the room, call light is within reach, bed is in low position and alarm is on. Belongings list reviewed and items are accounted for. Will continue to monitor for safety and comfort.
[2019-04-24 04:00] VITALS: BP 134/76
--- NOTE | 2019-04-24 04:07 | NUR ---
NURSE NOTES: Transfer patient to telemetry floor via bed, report is given to Emelyn CAPPS
--- NOTE | 2019-04-24 04:10 | NUR ---
NURSE NOTES: received pt from med/surgHortencia Rn, pt AOX4, no acute distress noted. c/o hip pain. pt belonging form verified and signed. bed locked and lowest position, bedside rail up x 2. call light and belonging within pt reach, will continue to monitor for any change in condition.
--- NOTE | 2019-04-24 05:30 | NUR ---
NURSE NOTES: pt Afib on monitor. pain medication administrated. will continue to monitor pt's condition.
--- NOTE | 2019-04-24 06:41 | NUR ---
NURSE NOTES: pt remains stable, no change in condition. bed locked and lowest position, bedside rail up x 2. call light and personal belongings within pt's reach. will endorse plan of care to incoming nurse.
--- NOTE | 2019-04-24 07:48 | NUR ---
HAND-OFF: Report given to JEFRY Son.
--- NOTE | 2019-04-24 07:52 | NUR ---
NURSE NOTES: Received report from JEFRY Vela. Patient in bed resting, no active s/s cardiac, respiratory distress noticed at this time. Patient A. fib with HR 74. Endorsed Kayexalate given for K level, IV on right EJ 20G, asymptomatic, patent, intact. Patient on room air, HD shunt on right leg, endorsed last HD on 04/20. Bed in lowest position, side rails upx2, call light within reach. Will continue to monitor.
[2019-04-24 08:00] VITALS: BP 108/66
[2019-04-24] MEDS: Heparin 5000 units/ml inj SUBQ SCH ×2 (08:27→20:38)
--- NOTE | 2019-04-24 09:21 | NUR ---
NURSE NOTES: Dr. Patterson made aware patient has 6 beats of V tach, back to baseline A.fib with HR 70s. No order given at this time. Will continue to monitor.
--- NOTE | 2019-04-24 09:30 | NUR ---
NURSE NOTES: Dr. Patterson, CN, and supervisor toy assembly made aware no orthopaedic consult for the patient at this time.
[2019-04-24] MEDS: HYDROmorphone 1mg/ml Carpuject IVP PRN ×4 (09:44→20:38)
--- NOTE | 2019-04-24 10:29 | Diagnostic Imaging Report ---
Indication: Hip pain Technique: continuous helical imaging in the transaxial plane was performed from the iliac crests to the pubic symphysis with attention to the right hip. Coronal 2-D reformatted images were also generated. Study obtained in a Siemens Sensation [address] total DLP: 696.19 mGycm CTD/vol: 10.98,10.76 mGy Comparison: None Findings: There is abnormal curvilinear lucencies involving the subchondral bone on the weightbearing surface of the right femoral head consistent with subchondral fractures. There is sclerosis about the fractures as well. The findings are suspicious for avascular necrosis. There is arthrosis of the joint with narrowing, subchondral cyst formation and osteophyte formation. The bones are abnormal in terms of the mineralization with generalized decreased mineralization noted diffusely. There is a right femoral line present which appears to be a dialysis catheter. Extensive small vessel arterial calcifications are present likely due to hyperparathyroidism which may be related to renal disease. Some subperiosteal resorption of bone noted with regard to the sacroiliac joints bilaterally. There is generalized subcutaneous edema noted. 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 Renal osteodystrophy. Other findings as above The CT scanner at [facility] is accredited by the [employer] and the scans are performed using dose optimization techniques as appropriate to a performed exam including Automatic Exposure control.
--- NOTE | 2019-04-24 10:38 | NUR ---
NURSE NOTES: Called Dr. Mannie Rogers for orthopedic consult. office #: .
--- NOTE | 2019-04-24 10:51 | NUR ---
CASE MANAGEMENT:REVIEW 53 YR OLD MALE BIBA FROM HOME CC: FELL AT [facility] YESTERDAY. UNABLE TO WALK SI: RT FEMORAL HEAD FRACTURE 98.9 79 18 139/79 95% ON RA K+6.2 BUN+97 CR+13.5 IS: IM DILAUDID IV DILAUDID KAYEXALATE PO CT HIP : TO TELEMETRY PLAN: ORTHO CONSULT CALLED [facility] MET
--- NOTE | 2019-04-24 11:36 | NUR ---
NURSE NOTES: Per Dr. Patterson, Dr. Valencia as cardiology consult, hold HIV medication for now since patient does not remember which medication he is getting from home for HIV, nobody at home who can bring medication to hospital. Pharmacist made aware. Order noted, entered, carried out. Will continue to monitor.
[2019-04-24 12:00] VITALS: BP 130/84
--- NOTE | 2019-04-24 12:02 | Consultation ---
History of Present Illness General Date patient seen: Apr 24, 2019 Chief Complaint: Lower Extremity Injury Present Illness HPI 52-year-old male with pmhx of ashtma, HIV, ESRD on HD, Hep B, atrial fibrillation presented to ER with CC of hip pain. He was diagnosed to have avascular necrosis of the right hip with subchondral fractures and moderate arthrosis on CT of hip. He is admitted to telemetry for further evaluation. Allergies: Coded Allergies: FLUTICASONE (Unverified Allergy, Unknown, 02/23/17) LEVOFLOXACIN (Unverified Allergy, Unknown, 08/22/14) MORPHINE (Unverified Allergy, Unknown, 02/23/17) Medication History Scheduled Acyclovir* (Zovirax*), 400 MG ORAL DAILY, (Reported) Amoxicillin/Potassium Clav 500-125 Tablet* (Augmentin 500-125 Tablet*), 1 TAB ORAL DAILY, (Reported) Aspirin Ec* (Aspirin Ec*), 81 MG ORAL DAILY, (Reported) Atenolol* (Tenormin*), 50 MG ORAL DAILY, (Reported) Cinacalcet Hcl (Sensipar), 60 MG ORAL DAILY, (Reported) Darunavir Ethanolate (Prezista), 800 MG ORAL DAILY, (Reported) Doxycycline Hyclate (Doxycycline Hyclate), 100 MG PO q12, (Reported) Gabapentin* (Gabapentin*), 300 MG ORAL BID, (Reported) Gabapentin* (Gabapentin*), 300 MG ORAL BEDTIME Meloxicam* (Meloxicam*), 1 TAB ORAL HS, (Reported) Pravastatin Sod* (Pravastatin Sod*), 40 MG ORAL DAILY, (Reported) Raltegravir (Isentress), 1 TAB ORAL DAILY, (Reported) Ritonavir (Norvir), 1 TAB ORAL DAILY, (Reported) Sevelamer Carbonate (Renvela), 5 TAB ORAL THREE TIMES A DAY, (Reported) Sevelamer Hcl (Renagel), 800 MG ORAL THREE TIMES A DAY, (Reported) Simvastatin (Zocor), 20 MG ORAL BEDTIME, (Reported) Warfarin Sod* (Warfarin Sod*), 9 MG ORAL DAILY, (Reported) Scheduled PRN Acetaminophen (Acetaminophen), 650 MG ORAL Q4HR PRN for Prn Headache/Temp > 101, (Reported) Diphenhydramine HCl (Diphenhydramine HCl), 25 MG IV 3XW PRN for before each dialysis, (Reported) Ondansetron Hcl (Ondansetron Hcl), 1 TAB ORAL PRN PRN for Nausea & Vomiting, ( Reported) Oxycodone Hcl* (Oxycodone Hcl*), 30 MG ORAL Q6H PRN for For Pain, (Reported) Patient History Healthcare decision maker Resuscitation status Full Code Advanced Directive on File No Past Medical/Surgical History Past Medical/Surgical History: (1) Coronary artery disease (2) Atrial fibrillation (3) Seizure disorder (4) Pancreatitis, chronic (5) Hypertension (6) Asthma (7) HIV (human immunodeficiency virus infection) (8) Anemia in chronic kidney disease (9) Portal hypertensive gastropathy (10) Peripheral vascular disease (11) ESRD on hemodialysis Review of Systems Constitutional: Reports: weakness All Other Systems: negative except mentioned in HPI Physical Exam General Appearance: WD/WN, no apparent distress, alert Lines, tubes and drains: peripheral HEENT: normocephalic, atraumatic, PERRL Neck: non-tender, normal alignment Respiratory/Chest: chest wall non-tender, lungs clear Cardiovascular/Chest: normal peripheral pulses, normal rate Abdomen: normal bowel sounds, non tender Genitourinary/Rectal: normal genital exam Extremities: normal range of motion, non-tender, normal inspection Neurologic: extruder tender II-XII grossly normal Lymphatic: anterior cervical Last 24 Hour Vital Signs Date Time Temp Pulse Resp B/P (MAP) Pulse Ox O2 Delivery O2 Flow Rate FiO2 04/24/19 09:00 Room Air 04/24/19 08:27 77 108/66 04/24/19 08:00 98.2 77 18 108/66 (80) 98 04/24/19 08:00 78 04/24/19 07:42 74 18 98 Room Air 21 04/24/19 05:12 74 04/24/19 04:00 97.7 76 19 134/76 (95) 100 04/24/19 02:43 Room Air 04/24/19 02:23 98.6 102 22 130/71 99 Room Air 04/23/19 23:55 98.9 04/23/19 22:40 99.0 79 18 139/79 (99) 95 Room Air Intake and Output 04/23/19 04/24/19 19:00 07:00 Intake Total 200 ml Output Total 300 ml Balance -100 ml Intake Oral 200 ml Output Urine Total 300 ml Laboratory Tests Test 04/24/19 01:15 White Blood Count 4.4 K/UL (4.8-10.8) L Red Blood Count 4.44 M/UL (4.70-6.10) L Hemoglobin 11.0 G/DL (14.2-18.0) L Hematocrit 35.0 % (42.0-52.0) L Mean Corpuscular Volume 79 FL (80-99) L Mean Corpuscular Hemoglobin 24.7 PG (27.0-31.0) L Mean Corpuscular Hemoglobin Concent 31.4 G/DL (32.0-36.0) L Red Cell Distribution Width 20.4 % (11.6-14.8) H Platelet Count 108 K/UL (150-450) L Mean Platelet Volume 7.9 FL (6.5-10.1) Neutrophils (%) (Auto) 59.0 % (45.0-75.0) Lymphocytes (%) (Auto) 15.9 % (20.0-45.0) L Monocytes (%) (Auto) 18.7 % (1.0-10.0) H Eosinophils (%) (Auto) 3.9 % (0.0-3.0) H Basophils (%) (Auto) 2.5 % (0.0-2.0) H Prothrombin Time 11.1 SEC (9.30-11.50) Prothromb Time International Ratio 1.0 (0.9-1.1) Activated Partial Thromboplast Time 38 SEC (23-33) H Sodium Level 135 MMOL/L (136-145) L Potassium Level 6.2 MMOL/L (3.5-5.1) *H Chloride Level 100 MMOL/L (98-107) Carbon Dioxide Level 17 MMOL/L (21-32) L Anion Gap 18 mmol/L (5-15) H Blood Urea Nitrogen 97 mg/dL (7-18) H Creatinine 13.5 MG/DL (0.55-1.30) H Estimat Glomerular Filtration Rate 4.6 mL/min (>60) Glucose Level 92 MG/DL (74-106) Calcium Level 10.7 MG/DL (8.5-10.1) H Phosphorus Level 12.3 MG/DL (2.5-4.9) H Troponin I 0.022 ng/mL (0.000-0.056) Albumin 3.2 G/DL (3.4-5.0) L Height (Feet): 6 Height (Inches): 3.00 Weight (Pounds): 196 Medications Current Medications Medications (Trade) Dose Ordered Sig/Anum Route PRN Reason Start Time Stop Time Status Last Admin Dose Admin Acetaminophen (Tylenol) 650 mg Q4H PRN ORAL Fever 04/23/19 23:15 05/23/19 23:14 Albuterol/ Ipratropium (Albuterol/ Ipratropium) 3 ml Q4H PRN HHN Shortness of Breath 04/23/19 23:15 04/28/19 23:14 Atenolol (Tenormin) 50 mg DAILY ORAL 04/24/19 09:00 05/24/19 08:59 04/24/19 08:27 Dextrose (Dextrose 50%) 25 ml Q30M PRN IV Hypoglycemia 04/23/19 23:15 05/23/19 23:14 Dextrose (Dextrose 50%) 50 ml Q30M PRN IV Hypoglycemia 04/23/19 23:15 05/23/19 23:14 Gabapentin (Neurontin) 300 mg BEDTIME ORAL 04/24/19 21:00 05/24/19 20:59 Heparin Sodium (Porcine) (Heparin 5000 units/ml) 5,000 units EVERY 12 HOURS SUBQ 04/24/19 09:00 05/24/19 08:59 Hydromorphone HCl (Dilaudid) 1 mg Q3H PRN IVP Severe Pain (Pain Scale 7-10) 04/24/19 09:30 05/01/19 09:29 04/24/19 09:44 Ondansetron HCl (Zofran) 4 mg Q6H PRN IVP Nausea & Vomiting 04/23/19 23:15 05/23/19 23:14 Oxycodone HCl (Roxicodone) 30 mg Q6H PRN ORAL Moderate Pain (Pain Scale 4-6) 04/24/19 09:45 04/30/19 23:14 Polyethylene Glycol (Miralax) 17 gm DAILYPRN PRN ORAL Constipation 04/23/19 23:15 05/23/19 23:14 Temazepam (Restoril) 15 mg HSPRN PRN ORAL Insomnia 04/23/19 23:15 04/30/19 23:14 Assessment/Plan Problem List: (1) Fracture of head of right femur ICD Codes: S72.051A - Unspecified fracture of head of right femur, initial encounter for closed fracture SNOMED: 85759026 Qualifiers: Qualified Codes: S72.051A - Unspecified fracture of head of right femur, initial encounter for closed fracture (2) ESRD on hemodialysis ICD Codes: N18.6 - ESRD on hemodialysis; Z99.2 - Dependence on renal dialysis SNOMED: 767078030 (3) Anemia in chronic kidney disease ICD Codes: N18.9 - Chronic kidney disease, unspecified; D63.1 - Anemia in chronic kidney disease SNOMED: 168866601 (4) Atrial fibrillation ICD Codes: I48.91 - Atrial fibrillation SNOMED: 53587939 (5) Avascular necrosis of bone of hip ICD Codes: M87.059 - Idiopathic aseptic necrosis of unspecified femur SNOMED: 766470605 (6) Seizure disorder ICD Codes: G40.909 - Seizure disorder SNOMED: 028972962 (7) Coronary artery disease ICD Codes: I25.10 - Coronary artery disease SNOMED: 749779850 (8) Pancreatitis, chronic ICD Codes: K86.1 - Pancreatitis, chronic SNOMED: 853819620 (9) HIV (human immunodeficiency virus infection) ICD Codes: Z21 - HIV (human immunodeficiency virus infection) SNOMED: 11368086 (10) Hypertension ICD Codes: I10 - Hypertension SNOMED: 51380220 Assessment/Plan: ortho consult pain management telemetry monitoring resume HIV meds respiratory treatment check electrolytes Srinivasan Patterson MD Apr 24, 2019 12:02
--- NOTE | 2019-04-24 12:42 | NUR ---
NURSE NOTES: Called [facility] nephrology tele :[phone] spoke with Can and informed patient schedule for HD today per Dr. Thomas. Will continue to monitor.
--- NOTE | 2019-04-24 12:46 | Consultation ---
Consult Note Consult Note asked to eval for dialysis management Known ESRD , on HD Tue Terri Sat HPI This is a 53-year-old male with multiple medical problems. He has chronic pain and currently taking oxycodone. He also has renal failure on hemodialysis. He presents with right hip pain. He has chronic left knee pain and said he need knee replacement. He did complain of right hip pain for a week. Pain going down his leg. He slipped and fell yesterday and is gotten worse. When he bear weight he has severe pain. Pain is 9 out of 10. No nausea no vomiting. No swelling. No incontinence of bowel or urine. Allergies: FLUTICASONE (Unverified Allergy, Unknown, 02/23/17) LEVOFLOXACIN (Unverified Allergy, Unknown, 08/22/14) MORPHINE (Unverified Allergy, Unknown, 02/23/17) Hx Hypertension: Yes Hx Asthma: Yes Hx Gastrointestinal Problems: Yes Hx Dialysis: Yes - T Th SAT R leg shunt Hx Neurological Problems: No Hx Seizures: Yes Hx Syncope: Yes interviewed examined data reviewed . Assessment/Plan Right Hip Fx- Renal Osteo Dystrophy ESRD, High K of 6.2 HTN of CKD Asthma At Fib CAD PVD HIV Disease Sz disorder Plan: HD ja for high K BP control pain management ortho eval per orders Perfecto Thomas MD Apr 24, 2019 12:46
[2019-04-24] MEDS: Docusate 100mg cap ORAL SCH ×3 (13:00→18:00)
[2019-04-24] MEDS ORDERED: Acetaminophen 650mg/20.3ml ORAL PRN (13:00)
[2019-04-24 16:00] VITALS: BP 125/83
--- NOTE | 2019-04-24 16:10 | History & Physical ---
History and Physical History & Physicial Dictated for Int Med-DR Hoff no. [id number] Fabricio Gulilory MD Apr 24, 2019 16:10
--- NOTE | 2019-04-24 16:30 | Consultation ---
DATE OF CONSULTATION: 04/24/2019 CARDIAC ELECTROPHYSIOLOGY CONSULTATION CONSULTING PHYSICIAN: Heath Valencia M.D. REFERRING PHYSICIAN: Srinivasan Patterson M.D. ADDITIONAL REFERRING PHYSICIAN: Nabeel Hoff M.D. REASON FOR CONSULTATION: Management of atrial fibrillation as well as nonsustained ventricular tachycardia. HISTORY OF PRESENT ILLNESS: The patient is a 53-year-old gentleman that I am quite familiar from his multiple previous hospitalizations. The patient has history of hypertension, end-stage renal disease on hemodialysis, and HIV who presented to the hospital with right hip pain as well as right leg pain. The patient has dialysis access in his right thigh as he has no access in the chest area. EKG showed atrial fibrillation, on telemetry had 6 beats of nonsustained ventricular tachycardia. Cardiology consultation was obtained for further evaluation and management. REVIEW OF SYSTEMS: Review of systems was negative other than what was mentioned in history of present illness. PAST MEDICAL HISTORY: As mentioned above. FAMILY HISTORY: Noncontributory. SOCIAL HISTORY: Lives at home. Does not smoke or drink alcohol. PHYSICAL EXAMINATION: VITAL SIGNS: Blood pressure 139/80, pulse 80, respirations 18, and he is afebrile. HEAD AND NECK: Shows mild JVD. LUNGS: Decreased breath sounds. CARDIOVASCULAR: Irregular S1 and S2 with no gallop. ABDOMEN: Soft. EXTREMITIES: Dialysis access in the right thigh. LABORATORY AND DIAGNOSTIC DATA: CT scan showed subchondral impaction fracture right femoral head with no dislocation. White count of 4.4, hemoglobin of 11, hematocrit 35, and platelet count 108. Sodium 135, potassium 6.2, BUN of 97, creatinine 13.5. His troponin is negative. ASSESSMENT AND PLAN: 1. Nonsustained ventricular tachycardia. This is in the setting of potassium of 6.2. The patient will be getting hemodialysis. We will watch the patient on telemetry. Repeat the cardiac enzymes and echocardiogram. His first troponin is negative. 2. Atrial fibrillation. The rate is currently controlled on atenolol 50 mg daily. He is on subcutaneous heparin but likely would need long-term oral anticoagulation like Eliquis. 3. End-stage renal disease, on hemodialysis. 4. 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 Further evaluation by Orthopedic surgery. Thank you very much, Dr. Patterson, for allowing me to participate in the care of this patient. Please do not hesitate to contact me for any questions regarding my evaluation. Sincerely, Heath Valencia M.D. DR: Alfonzo JOB#: [id number] CC:
--- NOTE | 2019-04-24 17:15 | History and Physical Report ---
DATE OF ADMISSION: 04/24/2019 CHIEF COMPLAINT: The patient is a 53-year-old, male, presents with chief complaint of right hip pain. HISTORY OF PRESENT ILLNESS: The patient states he was at home yesterday. The patient was on his way out of the house. The patient turned to get his wallet. The patient states his right knee suddenly became weak. The patient fell striking his right hip. The patient presented to [facility] emergency room. The patient was complaining of right hip pain. A CT scan revealed a subchondral fracture and avascular necrosis of the right femoral head. The patient was admitted with right femoral head fracture. REVIEW OF SYSTEMS: CONSTITUTIONAL: The patient denies weight loss or weight gain. The patient denies fevers or chills. HEENT: The patient denies ear or throat pain. The patient denies headache. CARDIOVASCULAR: The patient denies palpitations or chest pain. CHEST: The patient denies wheeze or shortness of breath. ABDOMINAL: The patient denies nausea, vomiting, diarrhea, or constipation. GENITOURINARY: The patient denies dysuria or increased frequency of urination. NEUROMUSCULAR: The patient denies seizures. The patient complains of right knee weakness as above. The patient complains of right hip pain as above. PAST MEDICAL HISTORY: Significant for: 1. HIV diagnosed in 1994. 2. End-stage renal disease, diagnosed in 1994. The patient is currently on hemodialysis every Tuesday, , and Tuesday. The patient's last dialysis was Sunday April 21, 2019. 3. Atrial fibrillation. 4. Hypertension. 5. History of coronary artery disease. 6. History of deep venous thrombosis of the left upper extremity in 2018. PAST SURGICAL HISTORY: Significant for: 1. Partial in October of 2018 secondary to gangrene. 2. Cholecystectomy. 3. Appendectomy. 4. Circumcision. 5. Lumbar laminectomy. CURRENT MEDICATIONS: 1. Acyclovir 800 mg p.o. daily. 2. Aspirin 81 mg p.o. daily. 3. Atenolol 50 mg p.o. daily. 4. Sensipar 60 mg p.o. daily. 5. Prezista 800 mg p.o. daily. 6. Diphenhydramine 50 mg IV three times weekly prior to dialysis. 7. Doxycycline 100 mg p.o. twice daily. 8. Gabapentin 300 mg p.o. twice daily. 9. Meloxicam 7.5 mg p.o. daily. 10. Zofran 4 mg p.o. q.6 hours p.r.n. nausea. 11. Oxycodone 30 mg p.o. q.6 hours p.r.n. 12. Pravastatin 40 mg p.o. daily. 13. Isentress 400 mg p.o. daily. 14. Norvir 100 mg p.o. daily. 15. Renvela 800 mg p.o. three times daily. 16. Renagel 800 mg p.o. three times daily. 17. Zocor 20 mg p.o. at bedtime. ALLERGIES: 1. Fluticasone. 2. Levofloxacin. 3. Morphine 4. Vancomycin. SOCIAL HISTORY: The patient is single. The patient is disabled. The patient denies tobacco or alcohol use. PHYSICAL EXAMINATION: VITAL SIGNS: Temperature 98.2, respirations 18, pulse 79, blood pressure 139/79. GENERAL: The patient is well-developed and well-nourished male, in no apparent distress. HEENT: Eyes, pupils are equal and responsive to light and accommodation. Extraocular movements are intact. NECK: Supple. No lymphadenopathy. CHEST: Lungs are clear to auscultation bilaterally without wheezes or rales. CARDIOVASCULAR: Regular rhythm and rate. S1 and S2 normal without murmurs, rubs, or gallops. ABDOMEN: Soft, nontender, and nondistended. Positive bowel sounds. No evidence of hepatosplenomegaly. Currently, no rebound or guarding noted. EXTREMITIES: Negative for clubbing, cyanosis, or edema. RECTAL/GENITAL: Refused. NEUROLOGIC: Cranial nerves II through XII are grossly intact without focal deficits. Motor strength is 5/5 bilaterally. Deep tendon reflexes are 2+ plantar. LABORATORY STUDIES: WBC 4.4, hemoglobin 11.0, hematocrit 35.0 platelets 108,000. Sodium 135, potassium elevated at 6.2, chloride 100, CO2 17, BUN 97, creatinine 15.5, glucose 92. Troponin 0.022. CT scan of the hip revealed avascular necrosis of the right femoral head and subchondral fracture of the right femoral head. ASSESSMENT: This is a 53-year-old, male. 1. Fracture of the right femoral head. 2. Avascular necrosis of the right femoral head. 3. Human immunodeficiency virus. 4. End-stage renal disease. 5. Atrial fibrillation. 6. Hypertension. 7. Coronary artery disease. 8. History of deep venous thrombosis. TREATMENT: 1. Fracture of the right femoral head(subchondral). An Orthopedic consultation has been obtained with Dr. Mannie Rogers. We will follow recommendation of Orthopedic Surgery. The patient will require cardiology clearance prior to surgery. 2. Avascular necrosis of the right femoral head. 3. Human immunodeficiency virus. Continue HAART medications as above. 4. End-stage renal disease. Nephrology consultation obtained with Dr. Thomas. The patient is scheduled for dialysis today, April 24, 2019. 5. Atrial fibrillation. A Cardiology consultation has been obtained with Dr. Heath Valencia. 6. Hypertension. Continue atenolol as above. 7. Coronary artery disease. As above, a Cardiology consultation has been obtained with Dr. Heath Valencia. 8. History of deep venous thrombosis. Fabricio Guillory M.D. DR: Nikki JOB#: [id number] CC:
--- NOTE | 2019-04-24 17:15 | NUR ---
NURSE NOTES: 1654 :[employer] was called due to patient was having uncontrollable shaking for 30 seconds with possibility of seizure, was notified by Wei dialysis nurse at the bedside. Patient was having 1 hour of HD at this time. 1656 : [employer] arrived, Patient AOx4, no more shaking, able to follow commend, VS 144/90, HR 80, 18, 99.0, O2 Sat 100%, BS 97. 1705: Dr. Hoff made aware and orders received. [employer] ended.
--- NOTE | 2019-04-24 17:20 | NUR ---
NURSE NOTES: Per Dr. Hoff, Ativan 0.5 mg IV Q6h prn for seizure. Order noted, entered, carried out. Addendum: 04/24/19 at 2006 by HORACIO CONDE RN Per Dr. Hoff, no order given for anticonvulsants.
[2019-04-24] MEDS ORDERED: DiphenhydrAMINE 50mg/ml Inj IVP PRN (17:30)
[2019-04-24] MEDS ORDERED: LORazepam Inj 2mg/ml 1ml IV PRN (17:30)
[2019-04-24] MEDS ORDERED: LORazepam 20 MG in NS 90 ML IV SCH (17:30)
[2019-04-24] MEDS ORDERED: DiphenhydrAMINE 50mg/ml Inj IVP SCH (17:30)
--- NOTE | 2019-04-24 19:20 | NUR ---
NURSE NOTES: Received patient from [facility]. Patient is awake and oriented x4. He is receiving oxygen Via Nasal Cannula at 2L/min, tolerating well, showing no signs of respiratory distress. IV site is Right EJ 20g patent and asymptomatic. Bed is locked, placed in lowest position, side rails up x3, side rails padded, call light within reach. All needs attended to, will continue to monitor.
--- NOTE | 2019-04-24 19:50 | NUR ---
NURSE NOTES: Patient tolerated HD well 2L out, last VS128/58, HR 68. Patient AOx4. Will continue to monitor.
[2019-04-24 20:00] VITALS: BP 128/53
--- NOTE | 2019-04-24 20:06 | NUR ---
HAND-OFF: Report given to JEFRY Olivares.
[2019-04-24] MEDS ORDERED: Gadavist 7.5mMol/7.5ml vial IV PRN (20:15)
[2019-04-25] VITALS: BP 138/66
[2019-04-25] MEDS: HYDROmorphone 1mg/ml Carpuject IVP PRN ×2 (02:40→08:34)
--- NOTE | 2019-04-25 03:45 | Consultation ---
DATE OF CONSULTATION: 04/24/2019 CONSULTING PHYSICIAN: Mannie Rogers M.D. REQUESTING PHYSICIAN: Fabricio Guillory M.D. CHIEF COMPLAINT: Right hip pain. HISTORY OF PRESENT ILLNESS: The patient is a pleasant 83-year-old gentleman who presents with right hip pain. He was at [employer] and all of a sudden had some pain and discomfort, difficulty ambulating. He was brought to the ER. CT scan showed a possible fracture and therefore he was admitted. Orthopedic consultation was obtained for further care and recommendation. PAST MEDICAL HISTORY: HIV. PAST SURGICAL HISTORY: In the intake chart. SOCIAL HISTORY: Does not smoke or drink. FAMILY HISTORY: Noncontributory. PHYSICAL EXAMINATION: GENERAL: The patient is alert and oriented. He is resting comfortably on bed. PELVIS: Right hip examination does show pain with internal and external rotation of the right hip. There is a dialysis shunt in the right thigh. IMAGING STUDIES: CT scan showed what appears to be avascular necrosis of the right hip. ASSESSMENT: Right hip avascular necrosis. DISCUSSION: At this point, what I recommend is getting MRI of the right hip to confirm the extent of the avascular necrosis. I do not think he has a true fracture. I think he maybe has a subchondral insufficiency fracture due to grade 4 AVN. I discussed with him that underlying chronic HIV and the medications. I discussed with him that he would be a candidate for total hip arthroplasty once he is medically optimized and cleared from Infectious Disease point of view, but also medical point of view. He also recently had a possible seizure, which was unclear and that have to be addressed. He is on dialysis and he will first have the shunt removed from his right leg and transferred to a different place. At this point, I will contact Dr. Guillory and Dr. Hoff for further care and recommendations. Mannie Rogers M.D. DR: NHAN JOB#: [id number] CC:
[2019-04-25 04:00] VITALS: BP 112/51
--- NOTE | 2019-04-25 07:33 | NUR ---
HAND-OFF: Report given to [facility]. Patient in stable condition.
--- NOTE | 2019-04-25 07:34 | NUR ---
NURSE NOTES: Pt received from JEFRY Rivera alert and oriented x4 with no acute s/s of distress noted. On 2L NC, saturating at 98% with no acute s/s of resp distress. IV site asymptomatic and patent. Bed in lowest position, call light and belongings within reach.
[2019-04-25 08:00] VITALS: BP 106/58
[2019-04-25] MEDS: Docusate 100mg cap ORAL SCH ×3 (08:32→18:08)
[2019-04-25] MEDS: Heparin 5000 units/ml inj SUBQ SCH (08:34)
[2019-04-25 08:53] LABS: HEMATOCRIT 35.3 % (42.0-52.0); HEMOGLOBIN 10.8 G/DL (14.2-18.0); MEAN CORPUSCULAR VOLUME 79 FL (80-99); PLATELET COUNT 73 K/UL (150-450); RED BLOOD COUNT 4.46 M/UL (4.70-6.10); RED CELL DISTRIBUTION WIDTH 20.2 % (11.6-14.8); WHITE BLOOD COUNT 2.8 K/UL (4.8-10.8)
[2019-04-25] MEDS ORDERED: Aspirin EC 81mg tab ORAL SCH (09:00)
[2019-04-25 09:03] LABS: AMMONIA 54 umol/L (11-32)
[2019-04-25 09:28] LABS: ALANINE AMINOTRANSFERASE 28 U/L (12-78); ALBUMIN/GLOBULIN RATIO 0.6 (1.0-2.7); ALKALINE PHOSPHATASE 79 U/L (46-116); ANION GAP 15 mmol/L (5-15); ASPARTATE AMINO TRANSFERASE 57 U/L (15-37); BILIRUBIN,TOTAL 0.9 MG/DL (0.2-1.0); BLOOD UREA NITROGEN 70 mg/dL (7-18); CALCIUM 9.9 MG/DL (8.5-10.1); CARBON DIOXIDE 25 MMOL/L (21-32); CHLORIDE 97 MMOL/L (98-107); CHOLESTEROL 135 MG/DL (< 200); CREATINE KINASE 109 U/L (26-308); CREATININE 10.8 MG/DL (0.55-1.30); FERRITIN 276 NG/ML (8-388); GAMMA GLUTAMYL TRANSPEPTIDASE 50 U/L (5-85); HDL CHOLESTEROL 59 MG/DL (40-60); PHOSPHORUS 9.7 MG/DL (2.5-4.9); POTASSIUM 4.5 MMOL/L (3.5-5.1); SODIUM 137 MMOL/L (136-145); TRIGLYCERIDES 92 MG/DL (30-150)
[2019-04-25 09:53] LABS: % IRON SATURATION 9 % (15-50); IRON 19 ug/dL (50-175); TOTAL IRON BINDING CAPACITY 219 ug/dL (250-450)
--- NOTE | 2019-04-25 10:06 | Pulmonology Progress Note ---
Assessment/Plan Problems: (1) Fracture of head of right femur (2) ESRD on hemodialysis (3) Anemia in chronic kidney disease (4) Atrial fibrillation (5) Avascular necrosis of bone of hip (6) Seizure disorder (7) Coronary artery disease (8) Pancreatitis, chronic (9) HIV (human immunodeficiency virus infection) (10) Hypertension Assessment/Plan Needs ID and cardiology clearance pain management HD access site needs to be changed HD by nephrology symptomatic treatment f/u troponin Subjective ROS Limited/Unobtainable: No Constitutional: Reports: no symptoms HEENT: Repors: no symptoms Respiratory: Reports: no symptoms Allergies: Coded Allergies: FLUTICASONE (Unverified Allergy, Unknown, 02/23/17) LEVOFLOXACIN (Unverified Allergy, Unknown, 08/22/14) MORPHINE (Unverified Allergy, Unknown, 02/23/17) Objective Last 24 Hour Vital Signs Date Time Temp Pulse Resp B/P (MAP) Pulse Ox O2 Delivery O2 Flow Rate FiO2 04/25/19 08:33 56 106/58 04/25/19 04:00 97.1 67 18 112/51 (71) 97 04/25/19 03:27 70 04/25/19 00:10 67 04/25/19 00:00 97.1 71 18 138/66 (90) 97 04/24/19 23:47 99 Nasal Cannula 2.0 28 04/24/19 23:46 60 20 99 Room Air 21 04/24/19 21:00 Room Air 04/24/19 20:00 99.0 68 18 128/53 (78) 97 04/24/19 19:03 61 04/24/19 16:00 71 04/24/19 16:00 97.7 73 20 125/83 (97) 97 04/24/19 12:00 97.6 68 20 130/84 (99) 97 04/24/19 12:00 71 Intake and Output 04/24/19 04/25/19 18:59 06:59 Intake Total 240 ml Balance 240 ml Intake Oral 240 ml # Voids 1 General Appearance: WD/WN HEENT: normocephalic, anicteric Respiratory/Chest: chest wall non-tender, normal breath sounds Cardiovascular: normal peripheral pulses, normal rate, regularly irregular, no JVD Abdomen: normal bowel sounds, soft, non tender 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 Lymphatic: no neck adenopathy Laboratory Tests 04/24/19 17:15: Hepatitis B Surface Antigen Negative 04/25/19 07:28: White Blood Count 2.8L, Red Blood Count 4.46L, Hemoglobin 10.8L, Hematocrit 35.3L, Mean Corpuscular Volume 79L, Mean Corpuscular Hemoglobin 24.1L, Mean Corpuscular Hemoglobin Concent 30.5L, Red Cell Distribution Width 20.2H, Platelet Count 73L, Mean Platelet Volume 5.6L, Neutrophils (%) (Auto) , Lymphocytes (%) (Auto) , Monocytes (%) (Auto) , Eosinophils (%) (Auto) , Basophils (%) (Auto) , Neutrophils % (Manual) [Pending], Lymphocytes % (Manual) [Pending], Platelet Estimate [Pending], Platelet Morphology [Pending], Sodium Level 137, Potassium Level 4.5, Chloride Level 97L, Carbon Dioxide Level 25, Anion Gap 15, Blood Urea Nitrogen 70H, Creatinine 10.8H, Estimat Glomerular Filtration Rate 6.1, Glucose Level 82, Hemoglobin A1c 5.3, Uric Acid 6.0, Calcium Level 9.9, Phosphorus Level 9.7H, Magnesium Level 2.2, Iron Level [ Pending], Unsaturated Iron Binding [Pending], Ferritin 276, Total Bilirubin 0.9 , Gamma Glutamyl Transpeptidase 50, Aspartate Amino Transf (AST/SGOT) 57H, Alanine Aminotransferase (ALT/SGPT) 28, Alkaline Phosphatase 79, Ammonia 54H, Total Creatine Kinase 109, Troponin I 0.079H, C-Reactive Protein, Quantitative 23.7H, Pro-B-Type Natriuretic Peptide 69962C, Total Protein 7.8, Albumin 3.0L, Globulin 4.8, Albumin/Globulin Ratio 0.6L, Triglycerides Level 92, Cholesterol Level 135, LDL Cholesterol 65, HDL Cholesterol 59, Cholesterol/HDL Ratio 2.3L, Lipase 109, Vitamin B12 Level [Pending], Folate [Pending], Thyroid Stimulating Hormone (TSH) 0.527 Current Medications Medications (Trade) Dose Ordered Sig/Anum Route PRN Reason Start Time Stop Time Status Last Admin Dose Admin Acetaminophen (Tylenol) 650 mg Q4H PRN ORAL Prn Headache/Temp > 101 04/24/19 13:00 05/24/19 12:59 Albuterol/ Ipratropium (Albuterol/ Ipratropium) 3 ml Q4H PRN HHN Shortness of Breath 04/23/19 23:15 04/28/19 23:14 Aspirin (Ecotrin) 81 mg DAILY ORAL 04/25/19 09:00 05/25/19 08:59 04/25/19 08:32 Atenolol (Tenormin) 50 mg DAILY ORAL 04/24/19 09:00 05/24/19 08:59 04/24/19 08:27 Dextrose (Dextrose 50%) 25 ml Q30M PRN IV Hypoglycemia 04/23/19 23:15 05/23/19 23:14 Dextrose (Dextrose 50%) 50 ml Q30M PRN IV Hypoglycemia 04/23/19 23:15 05/23/19 23:14 Diphenhydramine HCl (Benadryl) 25 mg DAILYPRN PRN IVP Give with dialysis treatments 04/24/19 17:30 05/24/19 17:29 Docusate Sodium (Colace) 100 mg THREE TIMES A DAY ORAL 04/24/19 13:00 05/24/19 12:59 04/25/19 08:32 Gabapentin (Neurontin) 300 mg BID ORAL 04/24/19 18:00 05/24/19 17:59 04/25/19 08:33 Gadobutrol (Gadavist) 7.5 mmol NOW PRN IV Radiology Procedure 04/24/19 20:15 04/28/19 20:03 Heparin Sodium (Porcine) (Heparin 5000 units/ml) 5,000 units EVERY 12 HOURS SUBQ 04/24/19 09:00 05/24/19 08:59 Hydralazine HCl (Apresoline) 10 mg Q4H PRN IV bp over 160 syst 04/24/19 13:00 05/24/19 12:59 Hydromorphone HCl (Dilaudid) 1 mg Q3H PRN IVP Severe Pain (Pain Scale 7-10) 04/24/19 09:30 05/01/19 09:29 04/25/19 08:34 Lorazepam (Ativan 2mg/ml 1ml) 0.5 mg Q6H PRN IV For Seizures 04/24/19 17:30 05/01/19 17:29 Ondansetron HCl (Zofran) 4 mg Q6H PRN IVP Nausea & Vomiting 04/23/19 23:15 05/23/19 23:14 Oxycodone HCl (Roxicodone) 30 mg Q6H PRN ORAL Moderate Pain (Pain Scale 4-6) 04/24/19 09:45 04/30/19 23:14 Pantoprazole (Protonix) 40 mg EVERY 12 HOURS ORAL 04/24/19 21:00 05/24/19 20:59 04/25/19 08:32 Polyethylene Glycol (Miralax) 17 gm DAILYPRN PRN ORAL Constipation 04/23/19 23:15 05/23/19 23:14 Pravastatin Sodium (Pravachol) 40 mg QHS ORAL 04/24/19 21:00 05/24/19 20:59 04/24/19 20:37 Sevelamer Carbonate (Renvela) 800 mg THREE TIMES A DAY ORAL 04/24/19 13:00 05/24/19 12:59 04/25/19 08:32 Temazepam (Restoril) 15 mg HSPRN PRN ORAL Insomnia 04/23/19 23:15 04/30/19 23:14 04/24/19 23:19 Srinivasan Patterson MD Apr 25, 2019 10:06
--- NOTE | 2019-04-25 11:03 | Cardiac Electrophysiology PN ---
Assessment/Plan Assessment/Plan 1. Nonsustained ventricular tachycardia. This is in the setting of potassium of 6.2. S/P hemodialysis. No recurrence on telemetry. Echo EF 45-50%. 2. Atrial fibrillation. The rate is currently controlled on atenolol 50 mg daily. He is on subcutaneous heparin but likely would need long-term oral anticoagulation like Eliquis after hip surgery 3. Troponin leak. Due to renal failure. No CP or SOB. 3. End-stage renal disease, on hemodialysis. Right femoral HD catheter needs to be removed before Hip surgery 4. 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 Total hip replacement by Dr Rogers pending. Stable from cardiac stand point. No further cardiac testing needed prior to surgery DW RN Subjective Subjective Had dialysis yesterday. Right total hip arthroplasty postponed till the RFV dialysis access is moved to other leg. Remained in atrial fib Objective Last 24 Hour Vital Signs Date Time Temp Pulse Resp B/P (MAP) Pulse Ox O2 Delivery O2 Flow Rate FiO2 04/25/19 08:33 56 106/58 04/25/19 04:00 97.1 67 18 112/51 (71) 97 04/25/19 03:27 70 04/25/19 00:10 67 04/25/19 00:00 97.1 71 18 138/66 (90) 97 04/24/19 23:47 99 Nasal Cannula 2.0 28 04/24/19 23:46 60 20 99 Room Air 21 04/24/19 21:00 Room Air 04/24/19 20:00 99.0 68 18 128/53 (78) 97 04/24/19 19:03 61 04/24/19 16:00 71 04/24/19 16:00 97.7 73 20 125/83 (97) 97 04/24/19 12:00 97.6 68 20 130/84 (99) 97 04/24/19 12:00 71 Intake and Output 04/24/19 04/25/19 18:59 06:59 Intake Total 240 ml Balance 240 ml Intake Oral 240 ml # Voids 1 Laboratory Tests Test 04/24/19 17:15 04/25/19 07:28 Hepatitis B Surface Antigen Negative (NEGATIVE) White Blood Count 2.8 K/UL (4.8-10.8) L Red Blood Count 4.46 M/UL (4.70-6.10) L Hemoglobin 10.8 G/DL (14.2-18.0) L Hematocrit 35.3 % (42.0-52.0) L Mean Corpuscular Volume 79 FL (80-99) L Mean Corpuscular Hemoglobin 24.1 PG (27.0-31.0) L Mean Corpuscular Hemoglobin Concent 30.5 G/DL (32.0-36.0) L Red Cell Distribution Width 20.2 % (11.6-14.8) H Platelet Count 73 K/UL (150-450) L Mean Platelet Volume 5.6 FL (6.5-10.1) L Neutrophils (%) (Auto) % (45.0-75.0) Lymphocytes (%) (Auto) % (20.0-45.0) Monocytes (%) (Auto) % (1.0-10.0) Eosinophils (%) (Auto) % (0.0-3.0) Basophils (%) (Auto) % (0.0-2.0) Differential Total Cells Counted 100 Neutrophils % (Manual) 42 % (45-75) L Lymphocytes % (Manual) 29 % (20-45) Monocytes % (Manual) 26 % (1-10) H Eosinophils % (Manual) 2 % (0-3) Basophils % (Manual) 1 % (0-2) Band Neutrophils 0 % (0-8) Platelet Estimate Decreased L Platelet Morphology Normal Hypochromasia 1+ Anisocytosis 2+ Microcytosis 1+ Sodium Level 137 MMOL/L (136-145) Potassium Level 4.5 MMOL/L (3.5-5.1) Chloride Level 97 MMOL/L (98-107) L Carbon Dioxide Level 25 MMOL/L (21-32) Anion Gap 15 mmol/L (5-15) Blood Urea Nitrogen 70 mg/dL (7-18) H Creatinine 10.8 MG/DL (0.55-1.30) H Estimat Glomerular Filtration Rate 6.1 mL/min (>60) Glucose Level 82 MG/DL (74-106) Hemoglobin A1c 5.3 % (4.3-6.0) Uric Acid 6.0 MG/DL (2.6-7.2) Calcium Level 9.9 MG/DL (8.5-10.1) Phosphorus Level 9.7 MG/DL (2.5-4.9) H Magnesium Level 2.2 MG/DL (1.8-2.4) Iron Level 19 ug/dL (50-175) L Total Iron Binding Capacity 219 ug/dL (250-450) L Percent Iron Saturation 9 % (15-50) L Unsaturated Iron Binding 200 ug/dL (112-346) Ferritin 276 NG/ML (8-388) Total Bilirubin 0.9 MG/DL (0.2-1.0) Gamma Glutamyl Transpeptidase 50 U/L (5-85) Aspartate Amino Transf (AST/SGOT) 57 U/L (15-37) H Alanine Aminotransferase (ALT/SGPT) 28 U/L (12-78) Alkaline Phosphatase 79 U/L (46-116) Ammonia 54 umol/L (11-32) H Total Creatine Kinase 109 U/L (26-308) Troponin I 0.079 ng/mL (0.000-0.056) C-Reactive Protein, Quantitative 23.7 mg/dL (0.00-0.90) H Pro-B-Type Natriuretic Peptide 42742 pg/mL (0-125) H Total Protein 7.8 G/DL (6.4-8.2) Albumin 3.0 G/DL (3.4-5.0) L Globulin 4.8 g/dL Albumin/Globulin Ratio 0.6 (1.0-2.7) L Triglycerides Level 92 MG/DL (30-150) Cholesterol Level 135 MG/DL (< 200) LDL Cholesterol 65 mg/dL (<100) HDL Cholesterol 59 MG/DL (40-60) Cholesterol/HDL Ratio 2.3 (3.3-4.4) L Lipase 109 U/L (73-393) Vitamin B12 Level 692 PG/ML (193-986) Folate 9.7 NG/ML (8.6-58.9) Thyroid Stimulating Hormone (TSH) 0.527 uiU/mL (0.358-3.740) Objective HEAD AND NECK: Shows mild JVD. LUNGS: Decreased breath sounds. CARDIOVASCULAR: Irregular S1 and S2 with no gallop. ABDOMEN: Soft. EXTREMITIES: Dialysis access in the right thigh. Heath aVlencia MD Apr 25, 2019 11:03
--- NOTE | 2019-04-25 11:49 | NUR ---
NURSE NOTES: Per pt, he gets claustrophobic during MRI and has asked for something to "calm him down." Endorsed to Dr. Patterson who ordered for Ativan 0.5 mg IVP one time prior to MRI.
[2019-04-25 12:00] VITALS: BP 112/55
--- NOTE | 2019-04-25 12:08 | Internal Med Progress Note ---
Subjective Date of Service: Apr 25, 2019 Physician Name Guillory,Fabricio Attending Physician Nabeel Hoff MD Current Medications Medications (Trade) Dose Ordered Sig/Anum Route PRN Reason Start Time Stop Time Status Last Admin Dose Admin Acetaminophen (Tylenol) 650 mg Q4H PRN ORAL Prn Headache/Temp > 101 04/24/19 13:00 05/24/19 12:59 Albuterol/ Ipratropium (Albuterol/ Ipratropium) 3 ml Q4H PRN HHN Shortness of Breath 04/23/19 23:15 04/28/19 23:14 Atenolol (Tenormin) 50 mg DAILY ORAL 04/24/19 09:00 05/24/19 08:59 04/24/19 08:27 Dextrose (Dextrose 50%) 25 ml Q30M PRN IV Hypoglycemia 04/23/19 23:15 05/23/19 23:14 Dextrose (Dextrose 50%) 50 ml Q30M PRN IV Hypoglycemia 04/23/19 23:15 05/23/19 23:14 Diphenhydramine HCl (Benadryl) 25 mg DAILYPRN PRN IVP Give with dialysis treatments 04/24/19 17:30 05/24/19 17:29 Docusate Sodium (Colace) 100 mg THREE TIMES A DAY ORAL 04/24/19 13:00 05/24/19 12:59 04/25/19 08:32 Gabapentin (Neurontin) 300 mg BID ORAL 04/24/19 18:00 05/24/19 17:59 04/25/19 08:33 Gadobutrol (Gadavist) 7.5 mmol NOW PRN IV Radiology Procedure 04/24/19 20:15 04/28/19 20:03 Hydralazine HCl (Apresoline) 10 mg Q4H PRN IV bp over 160 syst 04/24/19 13:00 05/24/19 12:59 Hydromorphone HCl (Dilaudid) 2 mg Q3H PRN IVP Severe Pain (Pain Scale 7-10) 04/25/19 12:30 05/01/19 09:29 Lorazepam (Ativan 2mg/ml 1ml) 0.5 mg Q6H PRN IV For Seizures 04/24/19 17:30 05/01/19 17:29 Ondansetron HCl (Zofran) 4 mg Q6H PRN IVP Nausea & Vomiting 04/23/19 23:15 05/23/19 23:14 Oxycodone HCl (Roxicodone) 30 mg Q6H PRN ORAL Moderate Pain (Pain Scale 4-6) 04/24/19 09:45 04/30/19 23:14 Pantoprazole (Protonix) 40 mg EVERY 12 HOURS ORAL 04/24/19 21:00 05/24/19 20:59 04/25/19 08:32 Polyethylene Glycol (Miralax) 17 gm DAILYPRN PRN ORAL Constipation 04/23/19 23:15 05/23/19 23:14 Pravastatin Sodium (Pravachol) 40 mg QHS ORAL 04/24/19 21:00 05/24/19 20:59 04/24/19 20:37 Sevelamer Carbonate (Renvela) 800 mg THREE TIMES A DAY ORAL 04/24/19 13:00 05/24/19 12:59 04/25/19 08:32 Temazepam (Restoril) 15 mg HSPRN PRN ORAL Insomnia 04/23/19 23:15 04/30/19 23:14 04/24/19 23:19 Allergies: Coded Allergies: FLUTICASONE (Unverified Allergy, Unknown, 02/23/17) LEVOFLOXACIN (Unverified Allergy, Unknown, 08/22/14) MORPHINE (Unverified Allergy, Unknown, 02/23/17) ROS Limited/Unobtainable: No Constitutional: Reports: no symptoms HEENT: Reports: no symptoms Cardiovascular: Reports: no symptoms Respiratory: Reports: no symptoms Gastrointestinal/Abdominal: Reports: no symptoms Genitourinary: Reports: no symptoms Neurologic/Psychiatric: Reports: no symptoms Subjective 53 YO M admitted with right hip pain. Now avascular necrosis right femoral head. Await MRI right hip. Cover for Hilario Henao-Dr Hoff Objective Last Vital Signs Date Time Temp Pulse Resp B/P (MAP) Pulse Ox O2 Delivery O2 Flow Rate FiO2 04/25/19 08:33 56 106/58 04/25/19 08:00 97.8 20 98 04/24/19 23:47 Nasal Cannula 2.0 28 Laboratory Tests Test 04/24/19 17:15 04/25/19 07:28 Hepatitis B Surface Antigen Negative (NEGATIVE) White Blood Count 2.8 K/UL (4.8-10.8) L Red Blood Count 4.46 M/UL (4.70-6.10) L Hemoglobin 10.8 G/DL (14.2-18.0) L Hematocrit 35.3 % (42.0-52.0) L Mean Corpuscular Volume 79 FL (80-99) L Mean Corpuscular Hemoglobin 24.1 PG (27.0-31.0) L Mean Corpuscular Hemoglobin Concent 30.5 G/DL (32.0-36.0) L Red Cell Distribution Width 20.2 % (11.6-14.8) H Platelet Count 73 K/UL (150-450) L Mean Platelet Volume 5.6 FL (6.5-10.1) L Neutrophils (%) (Auto) % (45.0-75.0) Lymphocytes (%) (Auto) % (20.0-45.0) Monocytes (%) (Auto) % (1.0-10.0) Eosinophils (%) (Auto) % (0.0-3.0) Basophils (%) (Auto) % (0.0-2.0) Differential Total Cells Counted 100 Neutrophils % (Manual) 42 % (45-75) L Lymphocytes % (Manual) 29 % (20-45) Monocytes % (Manual) 26 % (1-10) H Eosinophils % (Manual) 2 % (0-3) Basophils % (Manual) 1 % (0-2) Band Neutrophils 0 % (0-8) Platelet Estimate Decreased L Platelet Morphology Normal Hypochromasia 1+ Anisocytosis 2+ Microcytosis 1+ Sodium Level 137 MMOL/L (136-145) Potassium Level 4.5 MMOL/L (3.5-5.1) Chloride Level 97 MMOL/L (98-107) L Carbon Dioxide Level 25 MMOL/L (21-32) Anion Gap 15 mmol/L (5-15) Blood Urea Nitrogen 70 mg/dL (7-18) H Creatinine 10.8 MG/DL (0.55-1.30) H Estimat Glomerular Filtration Rate 6.1 mL/min (>60) Glucose Level 82 MG/DL (74-106) Hemoglobin A1c 5.3 % (4.3-6.0) Uric Acid 6.0 MG/DL (2.6-7.2) Calcium Level 9.9 MG/DL (8.5-10.1) Phosphorus Level 9.7 MG/DL (2.5-4.9) H Magnesium Level 2.2 MG/DL (1.8-2.4) Iron Level 19 ug/dL (50-175) L Total Iron Binding Capacity 219 ug/dL (250-450) L Percent Iron Saturation 9 % (15-50) L Unsaturated Iron Binding 200 ug/dL (112-346) Ferritin 276 NG/ML (8-388) Total Bilirubin 0.9 MG/DL (0.2-1.0) Gamma Glutamyl Transpeptidase 50 U/L (5-85) Aspartate Amino Transf (AST/SGOT) 57 U/L (15-37) H Alanine Aminotransferase (ALT/SGPT) 28 U/L (12-78) Alkaline Phosphatase 79 U/L (46-116) Ammonia 54 umol/L (11-32) H Total Creatine Kinase 109 U/L (26-308) Troponin I 0.079 ng/mL (0.000-0.056) C-Reactive Protein, Quantitative 23.7 mg/dL (0.00-0.90) H Pro-B-Type Natriuretic Peptide 78597 pg/mL (0-125) H Total Protein 7.8 G/DL (6.4-8.2) Albumin 3.0 G/DL (3.4-5.0) L Globulin 4.8 g/dL Albumin/Globulin Ratio 0.6 (1.0-2.7) L Triglycerides Level 92 MG/DL (30-150) Cholesterol Level 135 MG/DL (< 200) LDL Cholesterol 65 mg/dL (<100) HDL Cholesterol 59 MG/DL (40-60) Cholesterol/HDL Ratio 2.3 (3.3-4.4) L Lipase 109 U/L (73-393) Vitamin B12 Level 692 PG/ML (193-986) Folate 9.7 NG/ML (8.6-58.9) Thyroid Stimulating Hormone (TSH) 0.527 uiU/mL (0.358-3.740) Intake and Output 04/24/19 04/25/19 19:00 07:00 Intake Total 240 ml Balance 240 ml Intake Oral 240 ml # Voids 1 Objective PHYSICAL EXAMINATION: GENERAL: The patient is well-developed and well-nourished male, in no apparent distress. HEENT: Eyes, pupils are equal and responsive to light and accommodation. Extraocular movements are intact. NECK: Supple. No lymphadenopathy. CHEST: Lungs are clear to auscultation bilaterally without wheezes or rales. CARDIOVASCULAR: Regular rhythm and rate. S1 and S2 normal without murmurs, rubs, or gallops. ABDOMEN: Soft, nontender, and nondistended. Positive bowel sounds. No evidence of hepatosplenomegaly. Currently, no rebound or guarding noted. EXTREMITIES: Negative for clubbing, cyanosis, or edema. RECTAL/GENITAL: Refused. NEUROLOGIC: Cranial nerves II through XII are grossly intact without focal deficits. Motor strength is 5/5 bilaterally. Deep tendon reflexes are 2+ plantar. Assessment/Plan Assessment/Plan ASSESSMENT: This is a 53-year-old, male. 1. ?Fracture of the right femoral head? 2. Avascular necrosis of the right femoral head. 3. Human immunodeficiency virus. 4. End-stage renal disease. 5. Atrial fibrillation. 6. Hypertension. 7. Coronary artery disease. 8. History of deep venous thrombosis. TREATMENT: 1.Avascular necrosis of the right femoral head. An Orthopedic consultation has been obtained with Dr. Mannie Rogers-see consult note. Await MRI right hip to confirm fracture. The patient has been cleared by cardiology for surgery-see note. 2. Human immunodeficiency virus. Continue HAART medications as above. 4. End-stage renal disease. Nephrology consultation obtained with Dr. Thomas. The patient is S/P dialysis on April 24, 2019. 5. Atrial fibrillation. A Cardiology consultation has been obtained with Dr. Heath Valencia. 6. Hypertension. Continue atenolol as above. 7. Coronary artery disease. As above, a Cardiology consultation has been obtained with Dr. Heath Valencia. 8. History of deep venous thrombosis. Fabricio Guillory MD Apr 25, 2019 12:08
--- NOTE | 2019-04-25 12:55 | NUR ---
CASE MANAGEMENT:REVIEW 04/25/19 SI: RT HIP AVASCULAR NECROSIS 97.6 58 18 112/55 99% ON RA WBC-2.8 PLT-79 BUN+70 CR+10.8 IS: ATENOLOL PO QD RENVELA PO TID NEURONTIN PO BID PROTONIX PO Q12 IV DILAUDID Q3HRS PRN : TELEMETRY STATUS DCP: FROM HOME
[2019-04-25] MEDS ORDERED: LORazepam Inj 2mg/ml 1ml IV PRN (13:00)
--- NOTE | 2019-04-25 13:48 | NUR ---
NURSE NOTES: Attempted to bring pt for MRI scan but per Leodan from MRI, "pt was in pain and would not agree to continue with procedure". Pt was just adminitered with Dilaudid 2 mg PRN for pain at 1214 but still reports 8/10 pain. RN left message with Dr. Patterson.
--- NOTE | 2019-04-25 14:17 | NUR ---
NURSE NOTES: RN obtained preferred pharmacy of patient "[facility]" - [phone]. RN called who spoke with Hayley pharmacist and asked to fax over med list to nursing [facility].
--- NOTE | 2019-04-25 15:15 | NUR ---
NURSE NOTES: Called [facility] Nephrology to confirm HD for 04/26, received call back from Maksim.
--- NOTE | 2019-04-25 15:18 | NUR ---
NURSE NOTES: Attempted to have MRI done again, pt asking for pain med. Pt's BP was 93/43, HR 58. Endorsed to pt that pain med might reduce BP even more, pt agreed and chose to continue with MRI again but ultimately refused to have it done. Endorsed to Dr. Patterson.
[2019-04-25 16:00] VITALS: BP 120/67
--- NOTE | 2019-04-25 16:14 | Nephrology Progress Note ---
Assessment/Plan Problem List: (1) ESRD on hemodialysis (2) Peripheral vascular disease (3) HIV (human immunodeficiency virus infection) (4) Coronary artery disease (5) Atrial fibrillation Assessment Right Hip Fx- Renal Osteo Dystrophy ESRD, High K of 6.2 HTN of CKD Asthma At Fib CAD PVD HIV Disease Sz disorder Plan Plan: HD 04/24 next 04/26 BP control pain management phos binders lactulose ortho eval per orders Subjective ROS Limited/Unobtainable: No Objective Objective Last 24 Hour Vital Signs Date Time Temp Pulse Resp B/P (MAP) Pulse Ox O2 Delivery O2 Flow Rate FiO2 04/25/19 12:00 67 04/25/19 12:00 97.6 58 18 112/55 (74) 99 04/25/19 09:00 Room Air 04/25/19 08:33 56 106/58 04/25/19 08:00 66 04/25/19 08:00 97.8 56 20 106/58 (74) 98 04/25/19 04:00 97.1 67 18 112/51 (71) 97 04/25/19 03:27 70 04/25/19 00:10 67 04/25/19 00:00 97.1 71 18 138/66 (90) 97 04/24/19 23:47 99 Nasal Cannula 2.0 28 04/24/19 23:46 60 20 99 Room Air 21 04/24/19 21:00 Room Air 04/24/19 20:00 99.0 68 18 128/53 (78) 97 04/24/19 19:03 61 Intake and Output 04/24/19 04/25/19 19:00 07:00 Intake Total 240 ml 200 ml Balance 240 ml 200 ml Intake Oral 240 ml 200 ml # Voids 1 Laboratory Tests 04/24/19 17:15: Hepatitis B Surface Antigen Negative 04/25/19 07:28: White Blood Count 2.8L, Red Blood Count 4.46L, Hemoglobin 10.8L, Hematocrit 35.3L, Mean Corpuscular Volume 79L, Mean Corpuscular Hemoglobin 24.1L, Mean Corpuscular Hemoglobin Concent 30.5L, Red Cell Distribution Width 20.2H, Platelet Count 73L, Mean Platelet Volume 5.6L, Neutrophils (%) (Auto) , Lymphocytes (%) (Auto) , Monocytes (%) (Auto) , Eosinophils (%) (Auto) , Basophils (%) (Auto) , Differential Total Cells Counted 100, Neutrophils % ( Manual) 42L, Lymphocytes % (Manual) 29, Monocytes % (Manual) 26H, Eosinophils % (Manual) 2, Basophils % (Manual) 1, Band Neutrophils 0, Platelet Estimate DecreasedL, Platelet Morphology Normal, Hypochromasia 1+, Anisocytosis 2+, Microcytosis 1+, Sodium Level 137, Potassium Level 4.5, Chloride Level 97L, Carbon Dioxide Level 25, Anion Gap 15, Blood Urea Nitrogen 70H, Creatinine 10.8H , Estimat Glomerular Filtration Rate 6.1, Glucose Level 82, Hemoglobin A1c 5.3, Uric Acid 6.0, Calcium Level 9.9, Phosphorus Level 9.7H, Magnesium Level 2.2, Iron Level 19L, Total Iron Binding Capacity 219L, Percent Iron Saturation 9L, Unsaturated Iron Binding 200, Ferritin 276, Total Bilirubin 0.9, Gamma Glutamyl Transpeptidase 50, Aspartate Amino Transf (AST/SGOT) 57H, Alanine Aminotransferase (ALT/SGPT) 28, Alkaline Phosphatase 79, Ammonia 54H, Total Creatine Kinase 109, Troponin I 0.079H, C-Reactive Protein, Quantitative 23.7H, Pro-B-Type Natriuretic Peptide 97355R, Total Protein 7.8, Albumin 3.0L, Globulin 4.8, Albumin/Globulin Ratio 0.6L, Triglycerides Level 92, Cholesterol Level 135, LDL Cholesterol 65, HDL Cholesterol 59, Cholesterol/HDL Ratio 2.3L, Lipase 109, Vitamin B12 Level 692, Folate 9.7, Thyroid Stimulating Hormone (TSH ) 0.527 Height (Feet): 6 Height (Inches): 3.00 Weight (Pounds): 192 General Appearance: no apparent distress Cardiovascular: arrhythmia Respiratory/Chest: decreased breath sounds Abdomen: soft Perfecto Thomas MD Apr 25, 2019 16:14
--- NOTE | 2019-04-25 16:35 | NUR ---
NURSE NOTES: RN followed up with [facility] and spoke with Hayley ([phone]) who stated that production cloth cutter will personally send pt's HIV meds (prezista 800 mg qdaily PO, ritonavir 100 mg qdaily PO, isentress 400 mg BID PO) to security desk at front entrance and drop it off at [facility]. Endorsed to Dr. Patterson who agreed that pt continue the following meds. Shirley from pharmacy made aware, Charge Nurse Melanie made aware. Will endorse to evening nurse to follow up.
--- NOTE | 2019-04-25 17:55 | Consultation ---
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 He reports that while he was at [facility] he suddenly felt pain and discomcort and had difficulty ambulating. He was brought to ER. CT scan showed avascular necrosis of R hip. Patient had NSVT in the setting of hyperkalemia to 6.2 and was evaluated by cardiology. Denied n/v, swelling, bowel/urine incontinence, f/c, GREEN. Allergies: Coded Allergies: FLUTICASONE (Unverified Allergy, Unknown, 02/23/17) LEVOFLOXACIN (Unverified Allergy, Unknown, 08/22/14) MORPHINE (Unverified Allergy, Unknown, 02/23/17) Medication History Scheduled Acyclovir* (Zovirax*), 400 MG ORAL DAILY, (Reported) Amoxicillin/Potassium Clav 500-125 Tablet* (Augmentin 500-125 Tablet*), 1 TAB ORAL DAILY, (Reported) Aspirin Ec* (Aspirin Ec*), 81 MG ORAL DAILY, (Reported) Atenolol* (Tenormin*), 50 MG ORAL DAILY, (Reported) Cinacalcet Hcl (Sensipar), 60 MG ORAL DAILY, (Reported) Darunavir Ethanolate (Prezista), 800 MG ORAL DAILY, (Reported) Doxycycline Hyclate (Doxycycline Hyclate), 100 MG PO q12, (Reported) Gabapentin* (Gabapentin*), 300 MG ORAL BID, (Reported) Gabapentin* (Gabapentin*), 300 MG ORAL BEDTIME Meloxicam* (Meloxicam*), 1 TAB ORAL HS, (Reported) Pravastatin Sod* (Pravastatin Sod*), 40 MG ORAL DAILY, (Reported) Raltegravir (Isentress), 1 TAB ORAL DAILY, (Reported) Ritonavir (Norvir), 1 TAB ORAL DAILY, (Reported) Sevelamer Carbonate (Renvela), 5 TAB ORAL THREE TIMES A DAY, (Reported) Sevelamer Hcl (Renagel), 800 MG ORAL THREE TIMES A DAY, (Reported) Simvastatin (Zocor), 20 MG ORAL BEDTIME, (Reported) Warfarin Sod* (Warfarin Sod*), 9 MG ORAL DAILY, (Reported) Scheduled PRN Acetaminophen (Acetaminophen), 650 MG ORAL Q4HR PRN for Prn Headache/Temp > 101, (Reported) Diphenhydramine HCl (Diphenhydramine HCl), 25 MG IV 3XW PRN for before each dialysis, (Reported) Ondansetron Hcl (Ondansetron Hcl), 1 TAB ORAL PRN PRN for Nausea & Vomiting, ( Reported) Oxycodone Hcl* (Oxycodone Hcl*), 30 MG ORAL Q6H PRN for For Pain, (Reported) Patient History Healthcare decision maker Resuscitation status Full Code Advanced Directive on File No Patient History Narrative Pmhx: as above Shx: Does not smoke or drink. Lives at home. The patient is disabled Fhx: non contributory Review of Systems All Other Systems: negative except mentioned in HPI Physical Exam Physical Exam Narrative GENERAL: The patient is well-developed and well-nourished male, in no apparent distress. HEENT: Eyes, pupils are equal and responsive to light and accommodation. Extraocular movements are intact. NECK: Supple. No lymphadenopathy. CHEST: Lungs are clear to auscultation bilaterally without wheezes or rales. CARDIOVASCULAR: Regular rhythm and rate. S1 and S2 normal without murmurs, rubs, or gallops. ABDOMEN: Soft, nontender, and nondistended. Positive bowel sounds. No evidence of hepatosplenomegaly. Currently, no rebound or guarding noted. EXTREMITIES: Negative for clubbing, cyanosis, or edema. RECTAL/GENITAL: Refused. NEUROLOGIC: Cranial nerves II through XII are grossly intact without focal deficits. Motor strength is 5/5 bilaterally. Deep tendon reflexes are 2+ plantar. Last 24 Hour Vital Signs Date Time Temp Pulse Resp B/P (MAP) Pulse Ox O2 Delivery O2 Flow Rate FiO2 04/25/19 12:00 67 04/25/19 12:00 97.6 58 18 112/55 (74) 99 04/25/19 09:00 Room Air 04/25/19 08:33 56 106/58 04/25/19 08:00 66 04/25/19 08:00 97.8 56 20 106/58 (74) 98 04/25/19 04:00 97.1 67 18 112/51 (71) 97 04/25/19 03:27 70 04/25/19 00:10 67 04/25/19 00:00 97.1 71 18 138/66 (90) 97 04/24/19 23:47 99 Nasal Cannula 2.0 28 04/24/19 23:46 60 20 99 Room Air 21 04/24/19 21:00 Room Air 04/24/19 20:00 99.0 68 18 128/53 (78) 97 04/24/19 19:03 61 Intake and Output 04/24/19 04/25/19 19:00 07:00 Intake Total 240 ml 200 ml Balance 240 ml 200 ml Intake Oral 240 ml 200 ml # Voids 1 Laboratory Tests Test 04/25/19 07:28 White Blood Count 2.8 K/UL (4.8-10.8) L Red Blood Count 4.46 M/UL (4.70-6.10) L Hemoglobin 10.8 G/DL (14.2-18.0) L Hematocrit 35.3 % (42.0-52.0) L Mean Corpuscular Volume 79 FL (80-99) L Mean Corpuscular Hemoglobin 24.1 PG (27.0-31.0) L Mean Corpuscular Hemoglobin Concent 30.5 G/DL (32.0-36.0) L Red Cell Distribution Width 20.2 % (11.6-14.8) H Platelet Count 73 K/UL (150-450) L Mean Platelet Volume 5.6 FL (6.5-10.1) L Neutrophils (%) (Auto) % (45.0-75.0) Lymphocytes (%) (Auto) % (20.0-45.0) Monocytes (%) (Auto) % (1.0-10.0) Eosinophils (%) (Auto) % (0.0-3.0) Basophils (%) (Auto) % (0.0-2.0) Differential Total Cells Counted 100 Neutrophils % (Manual) 42 % (45-75) L Lymphocytes % (Manual) 29 % (20-45) Monocytes % (Manual) 26 % (1-10) H Eosinophils % (Manual) 2 % (0-3) Basophils % (Manual) 1 % (0-2) Band Neutrophils 0 % (0-8) Platelet Estimate Decreased L Platelet Morphology Normal Hypochromasia 1+ Anisocytosis 2+ Microcytosis 1+ Sodium Level 137 MMOL/L (136-145) Potassium Level 4.5 MMOL/L (3.5-5.1) Chloride Level 97 MMOL/L (98-107) L Carbon Dioxide Level 25 MMOL/L (21-32) Anion Gap 15 mmol/L (5-15) Blood Urea Nitrogen 70 mg/dL (7-18) H Creatinine 10.8 MG/DL (0.55-1.30) H Estimat Glomerular Filtration Rate 6.1 mL/min (>60) Glucose Level 82 MG/DL (74-106) Hemoglobin A1c 5.3 % (4.3-6.0) Uric Acid 6.0 MG/DL (2.6-7.2) Calcium Level 9.9 MG/DL (8.5-10.1) Phosphorus Level 9.7 MG/DL (2.5-4.9) H Magnesium Level 2.2 MG/DL (1.8-2.4) Iron Level 19 ug/dL (50-175) L Total Iron Binding Capacity 219 ug/dL (250-450) L Percent Iron Saturation 9 % (15-50) L Unsaturated Iron Binding 200 ug/dL (112-346) Ferritin 276 NG/ML (8-388) Total Bilirubin 0.9 MG/DL (0.2-1.0) Gamma Glutamyl Transpeptidase 50 U/L (5-85) Aspartate Amino Transf (AST/SGOT) 57 U/L (15-37) H Alanine Aminotransferase (ALT/SGPT) 28 U/L (12-78) Alkaline Phosphatase 79 U/L (46-116) Ammonia 54 umol/L (11-32) H Total Creatine Kinase 109 U/L (26-308) Troponin I 0.079 ng/mL (0.000-0.056) C-Reactive Protein, Quantitative 23.7 mg/dL (0.00-0.90) H Pro-B-Type Natriuretic Peptide 76301 pg/mL (0-125) H Total Protein 7.8 G/DL (6.4-8.2) Albumin 3.0 G/DL (3.4-5.0) L Globulin 4.8 g/dL Albumin/Globulin Ratio 0.6 (1.0-2.7) L Triglycerides Level 92 MG/DL (30-150) Cholesterol Level 135 MG/DL (< 200) LDL Cholesterol 65 mg/dL (<100) HDL Cholesterol 59 MG/DL (40-60) Cholesterol/HDL Ratio 2.3 (3.3-4.4) L Lipase 109 U/L (73-393) Vitamin B12 Level 692 PG/ML (193-986) Folate 9.7 NG/ML (8.6-58.9) Thyroid Stimulating Hormone (TSH) 0.527 uiU/mL (0.358-3.740) Height (Feet): 6 Height (Inches): 3.00 Weight (Pounds): 192 Medications Current Medications Medications (Trade) Dose Ordered Sig/Anum Route PRN Reason Start Time Stop Time Status Last Admin Dose Admin Acetaminophen (Tylenol) 650 mg Q4H PRN ORAL Prn Headache/Temp > 101 04/24/19 13:00 05/24/19 12:59 Albuterol/ Ipratropium (Albuterol/ Ipratropium) 3 ml Q4H PRN HHN Shortness of Breath 04/23/19 23:15 04/28/19 23:14 Dextrose (Dextrose 50%) 25 ml Q30M PRN IV Hypoglycemia 04/23/19 23:15 05/23/19 23:14 Dextrose (Dextrose 50%) 50 ml Q30M PRN IV Hypoglycemia 04/23/19 23:15 05/23/19 23:14 Diphenhydramine HCl (Benadryl) 25 mg DAILYPRN PRN IVP Give with dialysis treatments 04/24/19 17:30 05/24/19 17:29 Docusate Sodium (Colace) 100 mg THREE TIMES A DAY ORAL 04/24/19 13:00 05/24/19 12:59 04/25/19 12:14 Gabapentin (Neurontin) 300 mg BID ORAL 04/24/19 18:00 05/24/19 17:59 04/25/19 08:33 Gadobutrol (Gadavist) 7.5 mmol NOW PRN IV Radiology Procedure 04/24/19 20:15 04/28/19 20:03 Hydralazine HCl (Apresoline) 10 mg Q4H PRN IV bp over 160 syst 04/24/19 13:00 05/24/19 12:59 Hydromorphone HCl (Dilaudid) 2 mg Q3H PRN IVP Severe Pain (Pain Scale 7-10) 04/25/19 12:30 05/01/19 09:29 04/25/19 12:14 Iron Sucrose 200 mg/Sodium Chloride 120 ml @ 240 mls/hr ONCE ONCE IV 04/25/19 18:00 04/25/19 18:29 Lactulose (Cephulac) 20 gm THREE TIMES A DAY ORAL 04/25/19 18:00 05/25/19 17:59 Lorazepam (Ativan 2mg/ml 1ml) 0.5 mg ONCE PRN IV prior to MRI procedure 04/25/19 13:00 04/26/19 23:59 Lorazepam (Ativan 2mg/ml 1ml) 0.5 mg Q6H PRN IV For Seizures 04/24/19 17:30 05/01/19 17:29 Metoprolol Tartrate (Lopressor) 12.5 mg Q12HR ORAL 04/26/19 09:00 05/26/19 08:59 Ondansetron HCl (Zofran) 4 mg Q6H PRN IVP Nausea & Vomiting 04/23/19 23:15 05/23/19 23:14 Oxycodone HCl (Roxicodone) 30 mg Q6H PRN ORAL Moderate Pain (Pain Scale 4-6) 04/24/19 09:45 04/30/19 23:14 Pantoprazole (Protonix) 40 mg EVERY 12 HOURS ORAL 04/24/19 21:00 05/24/19 20:59 04/25/19 08:32 Polyethylene Glycol (Miralax) 17 gm DAILYPRN PRN ORAL Constipation 04/23/19 23:15 05/23/19 23:14 Pravastatin Sodium (Pravachol) 40 mg QHS ORAL 04/24/19 21:00 05/24/19 20:59 04/24/19 20:37 Sevelamer Carbonate (Renvela) 2,400 mg THREE TIMES A DAY ORAL 04/25/19 18:00 05/24/19 12:59 Temazepam (Restoril) 15 mg HSPRN PRN ORAL Insomnia 04/23/19 23:15 04/30/19 23:14 04/24/19 23:19 Assessment/Plan Assessment/Plan: Abx: None Assessment: R femoral avascular necrosis -CT hip: Evidence of avascular necrosis of the right hip with subchondral fractures and moderate arthrosis. Renal osteodystrophy. Other findings as above Afebrile Pancytopenia HIV dx 1994- on ARV- -12/2017: VL 460; CD4 133 (2014) HLD Asthma HTN GERD CAD PVD -s/p L 3rd and 4th toe amputation chronic L 2nd toe OM s/p tx 12/2017 hx pericardial effusion ESRD on HD TTSat w/ thrombose R upper arm AV graft, on kidney transplant list Seizure disorder syncope s/p cholecystectomy s/p appendectomy s/p lumbar laminectomy, Plan: -Continue to monitor off systemic antibiotics -Continue ARV: Prezista, Norvir, Isentress -f/u cx -Monitor CBC/CMP, temperatures -Ortho f/u -Cd4, VL am Thank you for this consultation. Will continue to follow along with you. Discussed with RN. 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 He reports that while he was at [facility] he suddenly felt pain and discomcort and had difficulty ambulating. He was brought to ER. CT scan showed avascular necrosis of R hip. Patient had NSVT in the setting of hyperkalemia to 6.2 and was evaluated by cardiology. Denied n/v, swelling, bowel/urine incontinence, f/c, GREEN. 01/19/18 PVD s/p L 3rd and 4th toe amputation Acute on Chronic L hand pain L foot pain, chronic 2nd tip toe ulcer with callous- MRI findings of OM , however clinically not infected, Mildly elevated ESR/CRP. Major component of vascular disease. -MRI Foot: Positive for evidence of osteomyelitis of the second distal phalanx and likely the head of the second middle phalanx. Soft tissue edema, as described, may indicate cellulitis. Correlate with clinical findings -L hand: No acute bony trauma. Postsurgical changes, as described. No definite plain radiographic evidence of osteomyelitis. -L foot: No acute bony trauma. Postsurgical changes.No plain radiographic evidence of osteomyelitis. -no acute infectious process at present Afebrile leukopenia/thrombocytopenia probably due to HIV Plan: -As attempt for salvage of 2nd toe, will treat for chronic OM with PO Doxycycline 100mg Bid and PO Augmentin 500mg daily (on HD days will take 2 extra doses, one during HD and one after end of HD) #3/42 days -f/u with HIV provider and outpatient vascular surgeon -per surgery and podiatry, not recommended to pursue bone biopsy given severe PVD -f/u A. duplex -Continue ARV : Darunavir, Dolutegravir and Ritonavir -f/u CD4 -Vascular surg eval -f/u cx -Monitor CBC/BMP, temperatures Sari Duncan M.D. Apr 25, 2019 17:55
[2019-04-25] MEDS ORDERED: Ritonavir 100mg tab ORAL SCH (18:00)
[2019-04-25] MEDS ORDERED: Iron Sucrose 200 MG in NS 110 ML IV ONE (18:00)
[2019-04-25] MEDS: Lactulose 20gm/30ml UDC ORAL SCH (18:09)
--- NOTE | 2019-04-25 18:46 | Cardiology Report ---
APPROVED REPORT EXAM: Two-dimensional and M-mode echocardiogram with Doppler and color Doppler. M-Mode DIMENSIONS IVSd0.9 (0.7-1.1cm)Left Atrium (MM)4.0 (1.6-4.0cm) LVDd6.1 (3.5-5.6cm)Aortic Root2.3 (2.0-3.7cm) PWd0.7 (0.7-1.1cm)Aortic Cusp Exc.1.6 (1.5-2.0cm) IVSs0.9 cm LVDs4.8 (2.5-4.0cm) PWs1.5 cm Normal left ventricular chamber size . Anteroseptal and inferoseptal wall hypokinesis and normal wall motion in remaining segments . Left ventricular ejection fraction estimated to be 40-45%. Mild left ventricular hypertrophy by 2-D. No evidence of pericardial effusion. Mild bi -atrial enlargement . Mild right ventricular enlargement . Aortic valve calcification with normal cusp excursion . Mildly thickened mitral valve leaflets with normal excursion. Mild mitral annulus and aortic root calcification. Pulmonic valve not well visualized. IVC at 2.1 cm without physiologic collapse suggestive of increased RA pressure. A color flow and spectral Doppler study was performed and revealed: Trace aortic insufficiency . Mitral inflow velocities indicates possible pseudo normalization pattern implying moderately elevated left atrial pressure (Grade II ) Mild mitral regurgitation. Moderate tricuspid regurgitation. Tricuspid systolic velocities suggests peak right ventricular systolic pressure of 61mmHg,consistent with severe pulmonary HTN. Pulmonic regurgitation present .
--- NOTE | 2019-04-25 18:55 | NUR ---
NURSE NOTES: Received order for Dilaudid 3 mg IVP PRN q3h for severe pain, d/c current order for Dilaudid 2 mg IVP PRN. Endorsed pt's episode of 93/43 BP and HR [address] Patterson, pls enter Dilaudid 3 mg IVP PRN q3h for severe pain. Will carry out orders and monitor pt accordingly.
--- NOTE | 2019-04-25 19:35 | NUR ---
HAND-OFF: Report given to JEFRY Tafoya. No acute s/s of distress noted.
--- NOTE | 2019-04-25 19:36 | NUR ---
NURSE NOTES: Received patient from [facility]. Patient is stable, in bed with no signs of distress. Patient has no pain at this time, on nasal canula at 2L and on a renal diet. Dialysis is schedule as well as an MRI for the 04/26/19. Bed is at its lowest position, call light in reach and X3 bed rails up.
[2019-04-25 20:00] VITALS: BP 100/57
[2019-04-25] MEDS ORDERED: Isentress 400mg tab ORAL SCH (21:00)
[2019-04-26] VITALS: BP 114/63
--- NOTE | 2019-04-26 01:08 | NUR ---
NURSE NOTES: Patient had 8 beats of v-tach, asymptomatic with no signs of distress. Will contact MD in the morning. Charge nurse informed. Will continue to monitor.
[2019-04-26 04:00] VITALS: BP 110/66
[2019-04-26 07:10] LABS: HEMATOCRIT 34.2 % (42.0-52.0); HEMOGLOBIN 10.5 G/DL (14.2-18.0); MEAN CORPUSCULAR VOLUME 79 FL (80-99); PLATELET COUNT 98 K/UL (150-450); RED BLOOD COUNT 4.33 M/UL (4.70-6.10); RED CELL DISTRIBUTION WIDTH 19.6 % (11.6-14.8); WHITE BLOOD COUNT 2.9 K/UL (4.8-10.8)
[2019-04-26 07:14] LABS: ALANINE AMINOTRANSFERASE 29 U/L (12-78); ALBUMIN 2.8 G/DL (3.4-5.0); ALBUMIN/GLOBULIN RATIO 0.6 (1.0-2.7); ALKALINE PHOSPHATASE 71 U/L (46-116); ANION GAP 18 mmol/L (5-15); ASPARTATE AMINO TRANSFERASE 54 U/L (15-37); BILIRUBIN,TOTAL 0.6 MG/DL (0.2-1.0); BLOOD UREA NITROGEN 84 mg/dL (7-18); CALCIUM 9.9 MG/DL (8.5-10.1); CARBON DIOXIDE 24 MMOL/L (21-32); CHLORIDE 96 MMOL/L (98-107); CREATININE 12.7 MG/DL (0.55-1.30); POTASSIUM 3.8 MMOL/L (3.5-5.1); SODIUM 137 MMOL/L (136-145)
--- NOTE | 2019-04-26 07:25 | NUR ---
HAND-OFF: Report given to [facility].
--- NOTE | 2019-04-26 07:32 | NUR ---
NURSE NOTES: Received report from [facility]. Pt in bed awake having breakfast. No c/o pain. AOX4 and no signs of distress noted. IV in REJ 20G intact and patent. Perma cath in R femoral patent and dressing clean and dry. No signs of bleeding noted. Louie from MRI came and checked the patient and discussed about the schedule of MRI. Bed in its lowest position and locked. Rhythm with V-tab x6 during previous shift noted and autocutteroperation shift supervisor will report to Dr. Valencia. Will continue to plan of care.
[2019-04-26 08:00] VITALS: BP 99/62
--- NOTE | 2019-04-26 08:00 | NUR ---
NURSE NOTES: Louie form MRI came to check the patient. But the patient refused for MRI for pain at this time. And his BP 95/60 at this time. RN will call Louie when patient's ready for test.
[2019-04-26] MEDS: Docusate 100mg cap ORAL SCH ×3 (08:16→17:15)
[2019-04-26] MEDS: Metoprolol Tartrate 12.5mg TAB ORAL SCH ×2 (08:16→21:24)
[2019-04-26] MEDS: Lactulose 20gm/30ml UDC ORAL SCH ×3 (08:16→17:15)
--- NOTE | 2019-04-26 09:18 | NUR ---
04/26 WILL ATTEMPT MRI EXAM FOR THIRD TIME. PT BP TOO LOW PER RN MIN. FLOOR WILL CALL WHEN STABLE. TJB 09:00
--- NOTE | 2019-04-26 09:54 | Cardiac Electrophysiology PN ---
Assessment/Plan Assessment/Plan 1. Nonsustained ventricular tachycardia. Could be atrial fib with aberrancy. S/ P hemodialysis. EF 45-50%. 2. Atrial fibrillation. Currently controlled on atenolol 50 mg daily. He is on subcutaneous heparin but likely would need long-term oral anticoagulation like Eliquis after hip surgery 3. Troponin leak. Due to renal failure. No CP or SOB. 3. End-stage renal disease, on hemodialysis. Right femoral HD catheter needs to be removed before Hip surgery 4. 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 Total hip replacement by Dr Rogers pending. Stable from cardiac stand point. No further cardiac testing needed prior to surgery DW RN Subjective Subjective Had 7 beats of nonsustained VT. Base line atrial fib. Right total hip arthroplasty postponed till the RFV dialysis access is moved to other leg. Objective Last 24 Hour Vital Signs Date Time Temp Pulse Resp B/P (MAP) Pulse Ox O2 Delivery O2 Flow Rate FiO2 04/26/19 09:00 Room Air 04/26/19 08:16 69 99/62 04/26/19 08:00 97.5 69 20 99/62 (74) 98 04/26/19 08:00 68 04/26/19 04:00 98.1 66 20 110/66 (81) 95 04/26/19 04:00 60 04/26/19 00:00 55 04/26/19 00:00 98.7 61 18 114/63 (80) 97 04/25/19 21:57 99 Nasal Cannula 2.0 28 04/25/19 21:55 56 20 99 Nasal Cannula 2.0 28 04/25/19 21:00 Room Air 04/25/19 20:00 98.4 55 18 100/57 (71) 98 04/25/19 19:59 104 04/25/19 16:00 98.0 63 18 120/67 (84) 99 04/25/19 16:00 67 04/25/19 12:00 67 04/25/19 12:00 97.6 58 18 112/55 (74) 99 Intake and Output 04/25/19 04/26/19 18:59 06:59 Intake Total 320 ml 240 ml Balance 320 ml 240 ml Intake Oral 320 ml 240 ml Laboratory Tests Test 04/25/19 21:05 04/26/19 05:45 Troponin I 0.067 ng/mL (0.000-0.056) White Blood Count Pending Red Blood Count 4.33 M/UL (4.70-6.10) L Hemoglobin 10.5 G/DL (14.2-18.0) L Hematocrit 34.2 % (42.0-52.0) L Mean Corpuscular Volume 79 FL (80-99) L Mean Corpuscular Hemoglobin 24.2 PG (27.0-31.0) L Mean Corpuscular Hemoglobin Concent 30.7 G/DL (32.0-36.0) L Red Cell Distribution Width 19.6 % (11.6-14.8) H Platelet Count 98 K/UL (150-450) L Mean Platelet Volume 6.1 FL (6.5-10.1) L Neutrophils (%) (Auto) % (45.0-75.0) Lymphocytes (%) (Auto) % (20.0-45.0) Monocytes (%) (Auto) % (1.0-10.0) Eosinophils (%) (Auto) % (0.0-3.0) Basophils (%) (Auto) % (0.0-2.0) Differential Total Cells Counted 100 Neutrophils % (Manual) 46 % (45-75) Lymphocytes % (Manual) 24 % (20-45) Monocytes % (Manual) 24 % (1-10) H Eosinophils % (Manual) 6 % (0-3) H Basophils % (Manual) 0 % (0-2) Band Neutrophils 0 % (0-8) Lymphocytes Pending Platelet Estimate Decreased L Platelet Morphology Normal Anisocytosis 1+ Sodium Level 137 MMOL/L (136-145) Potassium Level 3.8 MMOL/L (3.5-5.1) Chloride Level 96 MMOL/L (98-107) L Carbon Dioxide Level 24 MMOL/L (21-32) Anion Gap 18 mmol/L (5-15) H Blood Urea Nitrogen 84 mg/dL (7-18) H Creatinine 12.7 MG/DL (0.55-1.30) H Estimat Glomerular Filtration Rate 5.0 mL/min (>60) Glucose Level 118 MG/DL (74-106) H Calcium Level 9.9 MG/DL (8.5-10.1) Phosphorus Level 12.0 MG/DL (2.5-4.9) H Total Bilirubin 0.6 MG/DL (0.2-1.0) Aspartate Amino Transf (AST/SGOT) 54 U/L (15-37) H Alanine Aminotransferase (ALT/SGPT) 29 U/L (12-78) Alkaline Phosphatase 71 U/L (46-116) Total Protein 7.5 G/DL (6.4-8.2) Albumin 2.8 G/DL (3.4-5.0) L Globulin 4.7 g/dL Albumin/Globulin Ratio 0.6 (1.0-2.7) L Percent CD3 Cells Pending Absolute CD3 Count Pending Percent CD4 Cells Pending Absolute CD4 Count Pending T-Lymphocyte CD4/CD8 Ratio Pending Percent CD8 Cells Pending Absolute CD8 Count Pending HIV-1 RNA (PCR) log10 Value Pending HIV-1 RNA Ultraquantitative (PCR) Pending Objective HEAD AND NECK: No JVD. LUNGS: Decreased breath sounds. CARDIOVASCULAR: Irregular S1 and S2 with no gallop. ABDOMEN: Soft. EXTREMITIES: Dialysis access in the right thigh. Heath Valencia MD Apr 26, 2019 09:54
--- NOTE | 2019-04-26 10:55 | Infectious Diseases Prog Note ---
Assessment/Plan Assessment/Plan Abx: None Assessment: R femoral avascular necrosis -CT hip: Evidence of avascular necrosis of the right hip with subchondral fractures and moderate arthrosis. Renal osteodystrophy. Other findings as above Afebrile Pancytopenia HIV dx 1994- on ARV- -12/2017: VL 460; CD4 133 (2014) HLD Asthma HTN GERD CAD PVD -s/p L 3rd and 4th toe amputation chronic L 2nd toe OM s/p tx 12/2017 hx pericardial effusion ESRD on HD TTSat w/ thrombose R upper arm AV graft, on kidney transplant list Seizure disorder syncope s/p cholecystectomy s/p appendectomy s/p lumbar laminectomy, Plan: -Continue to monitor off systemic antibiotics -Continue ARV: Prezista, Norvir, Isentress -f/u cx -Monitor CBC/CMP, temperatures -Ortho f/u -f/u Cd4, VL Thank you for this consultation. Will continue to follow along with you. Discussed with RN. Subjective Allergies: Coded Allergies: FLUTICASONE (Unverified Allergy, Unknown, 02/23/17) LEVOFLOXACIN (Unverified Allergy, Unknown, 08/22/14) MORPHINE (Unverified Allergy, Unknown, 02/23/17) Subjective afebrile no leukocytosis Objective Vital Signs Last 24 Hour Vital Signs Date Time Temp Pulse Resp B/P (MAP) Pulse Ox O2 Delivery O2 Flow Rate FiO2 04/26/19 09:00 Room Air 04/26/19 08:16 69 99/62 04/26/19 08:00 97.5 69 20 99/62 (74) 98 04/26/19 08:00 68 04/26/19 04:00 98.1 66 20 110/66 (81) 95 04/26/19 04:00 60 04/26/19 00:00 55 04/26/19 00:00 98.7 61 18 114/63 (80) 97 04/25/19 21:57 99 Nasal Cannula 2.0 28 04/25/19 21:55 56 20 99 Nasal Cannula 2.0 28 04/25/19 21:00 Room Air 04/25/19 20:00 98.4 55 18 100/57 (71) 98 04/25/19 19:59 104 04/25/19 16:00 98.0 63 18 120/67 (84) 99 04/25/19 16:00 67 04/25/19 12:00 67 04/25/19 12:00 97.6 58 18 112/55 (35) 99 Height (Feet): 6 Height (Inches): 3.00 Weight (Pounds): 195 Objective GENERAL: The patient is well-developed and well-nourished male, in no apparent distress. HEENT: Eyes, pupils are equal and responsive to light and accommodation. Extraocular movements are intact. NECK: Supple. No lymphadenopathy. CHEST: Lungs are clear to auscultation bilaterally without wheezes or rales. CARDIOVASCULAR: Regular rhythm and rate. S1 and S2 normal without murmurs, rubs, or gallops. ABDOMEN: Soft, nontender, and nondistended. Positive bowel sounds. No evidence of hepatosplenomegaly. Currently, no rebound or guarding noted. EXTREMITIES: Negative for clubbing, cyanosis, or edema. NEUROLOGIC: Cranial nerves II through XII are grossly intact without focal deficits. Motor strength is 5/5 bilaterally. Deep tendon reflexes are 2+ plantar Laboratory Tests Test 04/25/19 21:05 04/26/19 05:45 Troponin I 0.067 ng/mL (0.000-0.056) White Blood Count Pending Red Blood Count 4.33 M/UL (4.70-6.10) L Hemoglobin 10.5 G/DL (14.2-18.0) L Hematocrit 34.2 % (42.0-52.0) L Mean Corpuscular Volume 79 FL (80-99) L Mean Corpuscular Hemoglobin 24.2 PG (27.0-31.0) L Mean Corpuscular Hemoglobin Concent 30.7 G/DL (32.0-36.0) L Red Cell Distribution Width 19.6 % (11.6-14.8) H Platelet Count 98 K/UL (150-450) L Mean Platelet Volume 6.1 FL (6.5-10.1) L Neutrophils (%) (Auto) % (45.0-75.0) Lymphocytes (%) (Auto) % (20.0-45.0) Monocytes (%) (Auto) % (1.0-10.0) Eosinophils (%) (Auto) % (0.0-3.0) Basophils (%) (Auto) % (0.0-2.0) Differential Total Cells Counted 100 Neutrophils % (Manual) 46 % (45-75) Lymphocytes % (Manual) 24 % (20-45) Monocytes % (Manual) 24 % (1-10) H Eosinophils % (Manual) 6 % (0-3) H Basophils % (Manual) 0 % (0-2) Band Neutrophils 0 % (0-8) Lymphocytes Pending Platelet Estimate Decreased L Platelet Morphology Normal Anisocytosis 1+ Sodium Level 137 MMOL/L (136-145) Potassium Level 3.8 MMOL/L (3.5-5.1) Chloride Level 96 MMOL/L (98-107) L Carbon Dioxide Level 24 MMOL/L (21-32) Anion Gap 18 mmol/L (5-15) H Blood Urea Nitrogen 84 mg/dL (7-18) H Creatinine 12.7 MG/DL (0.55-1.30) H Estimat Glomerular Filtration Rate 5.0 mL/min (>60) Glucose Level 118 MG/DL (74-106) H Calcium Level 9.9 MG/DL (8.5-10.1) Phosphorus Level 12.0 MG/DL (2.5-4.9) H Total Bilirubin 0.6 MG/DL (0.2-1.0) Aspartate Amino Transf (AST/SGOT) 54 U/L (15-37) H Alanine Aminotransferase (ALT/SGPT) 29 U/L (12-78) Alkaline Phosphatase 71 U/L (46-116) Total Protein 7.5 G/DL (6.4-8.2) Albumin 2.8 G/DL (3.4-5.0) L Globulin 4.7 g/dL Albumin/Globulin Ratio 0.6 (1.0-2.7) L Percent CD3 Cells Pending Absolute CD3 Count Pending Percent CD4 Cells Pending Absolute CD4 Count Pending T-Lymphocyte CD4/CD8 Ratio Pending Percent CD8 Cells Pending Absolute CD8 Count Pending HIV-1 RNA (PCR) log10 Value Pending HIV-1 RNA Ultraquantitative (PCR) Pending Current Medications Medications (Trade) Dose Ordered Sig/Anum Route PRN Reason Start Time Stop Time Status Last Admin Dose Admin Acetaminophen (Tylenol) 650 mg Q4H PRN ORAL Prn Headache/Temp > 101 04/24/19 13:00 05/24/19 12:59 Albuterol/ Ipratropium (Albuterol/ Ipratropium) 3 ml Q4H PRN HHN Shortness of Breath 04/23/19 23:15 04/28/19 23:14 Darunavir (Prezista) 800 mg DAILY ORAL 04/25/19 18:00 05/25/19 17:59 UNV Dextrose (Dextrose 50%) 25 ml Q30M PRN IV Hypoglycemia 04/23/19 23:15 05/23/19 23:14 Dextrose (Dextrose 50%) 50 ml Q30M PRN IV Hypoglycemia 04/23/19 23:15 05/23/19 23:14 Diphenhydramine HCl (Benadryl) 25 mg DAILYPRN PRN IVP Give with dialysis treatments 04/24/19 17:30 05/24/19 17:29 Docusate Sodium (Colace) 100 mg THREE TIMES A DAY ORAL 04/24/19 13:00 05/24/19 12:59 04/26/19 08:16 Gabapentin (Neurontin) 300 mg BID ORAL 04/24/19 18:00 05/24/19 17:59 04/26/19 08:17 Gadobutrol (Gadavist) 7.5 mmol NOW PRN IV Radiology Procedure 04/24/19 20:15 04/28/19 20:03 Hydralazine HCl (Apresoline) 10 mg Q4H PRN IV bp over 160 syst 04/24/19 13:00 05/24/19 12:59 Hydromorphone HCl (Dilaudid) 3 mg Q3H PRN IVP Severe Pain (Pain Scale 7-10) 04/25/19 19:15 05/02/19 19:14 04/26/19 03:58 Lactulose (Cephulac) 20 gm THREE TIMES A DAY ORAL 04/25/19 18:00 05/25/19 17:59 04/26/19 08:16 Lorazepam (Ativan 2mg/ml 1ml) 0.5 mg ONCE PRN IV prior to MRI procedure 04/25/19 13:00 04/26/19 23:59 Lorazepam (Ativan 2mg/ml 1ml) 0.5 mg Q6H PRN IV For Seizures 04/24/19 17:30 05/01/19 17:29 Metoprolol Tartrate (Lopressor) 12.5 mg Q12HR ORAL 04/26/19 09:00 05/26/19 08:59 Ondansetron HCl (Zofran) 4 mg Q6H PRN IVP Nausea & Vomiting 04/23/19 23:15 05/23/19 23:14 Oxycodone HCl (Roxicodone) 30 mg Q6H PRN ORAL Moderate Pain (Pain Scale 4-6) 04/24/19 09:45 04/30/19 23:14 Pantoprazole (Protonix) 40 mg EVERY 12 HOURS ORAL 04/24/19 21:00 05/24/19 20:59 04/26/19 08:16 Polyethylene Glycol (Miralax) 17 gm DAILYPRN PRN ORAL Constipation 04/23/19 23:15 05/23/19 23:14 Pravastatin Sodium (Pravachol) 40 mg QHS ORAL 04/24/19 21:00 05/24/19 20:59 04/25/19 20:46 Raltegravir (Isentress) 400 mg Q12HR ORAL 04/25/19 21:00 05/25/19 20:59 UNV Ritonavir (Norvir) 100 mg TWICE A DAY ORAL 04/25/19 18:00 05/25/19 17:59 UNV Sevelamer Carbonate (Renvela) 2,400 mg THREE TIMES A DAY ORAL 04/25/19 18:00 05/24/19 12:59 04/26/19 08:16 Temazepam (Restoril) 15 mg HSPRN PRN ORAL Insomnia 04/23/19 23:15 04/30/19 23:14 04/24/19 23:19 Sari Duncan M.D. Apr 26, 2019 10:55
[2019-04-26 11:55] VITALS: BP 119/59
--- NOTE | 2019-04-26 12:01 | Pulmonology Progress Note ---
Assessment/Plan Problems: (1) Fracture of head of right femur (2) Avascular necrosis of bone of hip (3) Atrial fibrillation (4) HIV (human immunodeficiency virus infection) (5) Hypertension (6) ESRD on hemodialysis (7) Anemia in chronic kidney disease (8) Seizure disorder (9) Coronary artery disease (10) Pancreatitis, chronic Assessment/Plan MRI is scheduled for today all reviewed BP more stable now pain management HD access site needs to be changed HD by nephrology symptomatic treatment f/u troponin Subjective ROS Limited/Unobtainable: No Constitutional: Reports: no symptoms HEENT: Repors: no symptoms Allergies: Coded Allergies: FLUTICASONE (Unverified Allergy, Unknown, 02/23/17) LEVOFLOXACIN (Unverified Allergy, Unknown, 08/22/14) MORPHINE (Unverified Allergy, Unknown, 02/23/17) Objective Last 24 Hour Vital Signs Date Time Temp Pulse Resp B/P (MAP) Pulse Ox O2 Delivery O2 Flow Rate FiO2 04/26/19 09:40 68 20 98 Nasal Cannula 2.0 28 04/26/19 09:40 98 Nasal Cannula 2.0 28 04/26/19 09:00 Room Air 04/26/19 08:16 69 99/62 04/26/19 08:00 97.5 69 20 99/62 (74) 98 04/26/19 08:00 68 04/26/19 04:00 98.1 66 20 110/66 (81) 95 04/26/19 04:00 60 04/26/19 00:00 55 04/26/19 00:00 98.7 61 18 114/63 (80) 97 04/25/19 21:57 99 Nasal Cannula 2.0 28 04/25/19 21:55 56 20 99 Nasal Cannula 2.0 28 04/25/19 21:00 Room Air 04/25/19 20:00 98.4 55 18 100/57 (71) 98 04/25/19 19:59 104 04/25/19 16:00 98.0 63 18 120/67 (84) 99 04/25/19 16:00 67 04/25/19 12:00 67 04/25/19 12:00 97.6 58 18 112/55 (74) 99 Intake and Output 04/25/19 04/26/19 18:59 06:59 Intake Total 320 ml 240 ml Balance 320 ml 240 ml Intake Oral 320 ml 240 ml Objective MRI pending HEENT: normocephalic, atraumatic Respiratory/Chest: chest wall non-tender, lungs clear, normal breath sounds Cardiovascular: normal peripheral pulses, normal rate Abdomen: normal bowel sounds, soft, non tender Extremities: no clubbing Neurologic/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 Laboratory Tests 04/25/19 21:05: Troponin I 0.067H 04/26/19 05:45: White Blood Count [Pending], Red Blood Count 4.33L, Hemoglobin 10.5L, Hematocrit 34.2L, Mean Corpuscular Volume 79L, Mean Corpuscular Hemoglobin 24.2L , Mean Corpuscular Hemoglobin Concent 30.7L, Red Cell Distribution Width 19.6H, Platelet Count 98L, Mean Platelet Volume 6.1L, Neutrophils (%) (Auto) , Lymphocytes (%) (Auto) , Monocytes (%) (Auto) , Eosinophils (%) (Auto) , Basophils (%) (Auto) , Differential Total Cells Counted 100, Neutrophils % ( Manual) 46, Lymphocytes % (Manual) 24, Monocytes % (Manual) 24H, Eosinophils % ( Manual) 6H, Basophils % (Manual) 0, Band Neutrophils 0, Lymphocytes [Pending], Platelet Estimate DecreasedL, Platelet Morphology Normal, Anisocytosis 1+, Sodium Level 137, Potassium Level 3.8, Chloride Level 96L, Carbon Dioxide Level 24, Anion Gap 18H, Blood Urea Nitrogen 84H, Creatinine 12.7H, Estimat Glomerular Filtration Rate 5.0, Glucose Level 118H, Calcium Level 9.9, Phosphorus Level 12.0H, Total Bilirubin 0.6, Aspartate Amino Transf (AST/SGOT) 54H, Alanine Aminotransferase (ALT/SGPT) 29, Alkaline Phosphatase 71, Total Protein 7.5, Albumin 2.8L, Globulin 4.7, Albumin/Globulin Ratio 0.6L, Percent CD3 Cells [Pending], Absolute CD3 Count [Pending], Percent CD4 Cells [Pending], Absolute CD4 Count [Pending], T-Lymphocyte CD4/CD8 Ratio [Pending], Percent CD8 Cells [Pending], Absolute CD8 Count [Pending], HIV-1 RNA (PCR) log10 Value [ Pending], HIV-1 RNA Ultraquantitative (PCR) [Pending] Current Medications Medications (Trade) Dose Ordered Sig/Anum Route PRN Reason Start Time Stop Time Status Last Admin Dose Admin Acetaminophen (Tylenol) 650 mg Q4H PRN ORAL Prn Headache/Temp > 101 04/24/19 13:00 05/24/19 12:59 Albuterol/ Ipratropium (Albuterol/ Ipratropium) 3 ml Q4H PRN HHN Shortness of Breath 04/23/19 23:15 04/28/19 23:14 Darunavir (Prezista) 800 mg DAILY ORAL 04/25/19 18:00 05/25/19 17:59 UNV Dextrose (Dextrose 50%) 25 ml Q30M PRN IV Hypoglycemia 04/23/19 23:15 05/23/19 23:14 Dextrose (Dextrose 50%) 50 ml Q30M PRN IV Hypoglycemia 04/23/19 23:15 05/23/19 23:14 Diphenhydramine HCl (Benadryl) 25 mg DAILYPRN PRN IVP Give with dialysis treatments 04/24/19 17:30 05/24/19 17:29 Docusate Sodium (Colace) 100 mg THREE TIMES A DAY ORAL 04/24/19 13:00 05/24/19 12:59 04/26/19 08:16 Gabapentin (Neurontin) 300 mg BID ORAL 04/24/19 18:00 05/24/19 17:59 04/26/19 08:17 Gadobutrol (Gadavist) 7.5 mmol NOW PRN IV Radiology Procedure 04/24/19 20:15 04/28/19 20:03 Hydralazine HCl (Apresoline) 10 mg Q4H PRN IV bp over 160 syst 04/24/19 13:00 05/24/19 12:59 Hydromorphone HCl (Dilaudid) 3 mg Q3H PRN IVP Severe Pain (Pain Scale 7-10) 04/25/19 19:15 05/02/19 19:14 04/26/19 03:58 Lactulose (Cephulac) 20 gm THREE TIMES A DAY ORAL 04/25/19 18:00 05/25/19 17:59 04/26/19 08:16 Lorazepam (Ativan 2mg/ml 1ml) 0.5 mg ONCE PRN IV prior to MRI procedure 04/25/19 13:00 04/26/19 23:59 Lorazepam (Ativan 2mg/ml 1ml) 0.5 mg Q6H PRN IV For Seizures 04/24/19 17:30 05/01/19 17:29 Metoprolol Tartrate (Lopressor) 12.5 mg Q12HR ORAL 04/26/19 09:00 05/26/19 08:59 Ondansetron HCl (Zofran) 4 mg Q6H PRN IVP Nausea & Vomiting 04/23/19 23:15 05/23/19 23:14 Oxycodone HCl (Roxicodone) 30 mg Q6H PRN ORAL Moderate Pain (Pain Scale 4-6) 04/24/19 09:45 04/30/19 23:14 Pantoprazole (Protonix) 40 mg EVERY 12 HOURS ORAL 04/24/19 21:00 05/24/19 20:59 04/26/19 08:16 Polyethylene Glycol (Miralax) 17 gm DAILYPRN PRN ORAL Constipation 04/23/19 23:15 05/23/19 23:14 Pravastatin Sodium (Pravachol) 40 mg QHS ORAL 04/24/19 21:00 05/24/19 20:59 04/25/19 20:46 Raltegravir (Isentress) 400 mg Q12HR ORAL 04/25/19 21:00 05/25/19 20:59 UNV Ritonavir (Norvir) 100 mg TWICE A DAY ORAL 04/25/19 18:00 05/25/19 17:59 UNV Sevelamer Carbonate (Renvela) 2,400 mg THREE TIMES A DAY ORAL 04/25/19 18:00 05/24/19 12:59 04/26/19 08:16 Temazepam (Restoril) 15 mg HSPRN PRN ORAL Insomnia 04/23/19 23:15 04/30/19 23:14 04/24/19 23:19 Srinivasan Patterson MD Apr 26, 2019 12:01
--- NOTE | 2019-04-26 12:15 | NUR ---
NURSE NOTES: Louie from MRI came again for MRI. Dilaudid 3mg IV just given for MRI and the patient also c/o pain. Will contact the MRI once his pain gets better and IV Ativan to be given for MRI.
--- NOTE | 2019-04-26 12:50 | NUR ---
NURSE NOTES: RN from [facility] dialysis came to start HD. Informed Louie and RN will contact the MRI dept after HD done.
--- NOTE | 2019-04-26 13:02 | NUR ---
04/26 Concerning MRI...pt to have dialysis now, per RN Min. 13:00 julio
[2019-04-26] MEDS ORDERED: Cathflo Alteplase 2mg Inj INJ ONE (14:00)
--- NOTE | 2019-04-26 14:00 | NUR ---
NURSE NOTES: Per RN from [facility] dialysis, there are some blockages of perma cath on right femoral area. Made dr. Thomas aware and RN from [facility] will come back for HD tomorrow again.
--- NOTE | 2019-04-26 14:05 | NUR ---
NURSE NOTES: Pt left Tele for MRI with RN
--- NOTE | 2019-04-26 15:13 | NUR ---
LIMITED MRI RT HIP COMPLETED. PT COULD NOT STAY STILL EVEN WITH PAIN MED AND ATIVAN GIVEN. TJB 15:00
--- NOTE | 2019-04-26 15:15 | NUR ---
NURSE NOTES: Pt returned back from MRI with RN. cross country coach applied.
--- NOTE | 2019-04-26 15:37 | Diagnostic Imaging Report ---
Indication: Hip and pelvis pain. Right hip AVN Technique: MRI examination of the pelvis and right hip was performed in a 1.5 [place] magnet. Sequences obtained include multiplanar T1 and T2 fast spin echo, and STIR. Comparison: none Findings: The patient was brought down 3 times to perform an MRI of the hip. The first 2 times were completely nondiagnostic. The third time is nearly nondiagnostic with severe motion related image degradation. There is a suggestion of curvilinear abnormal signal within the weightbearing surface of the femoral head, a finding that was also demonstrated on recent CT. Small joint effusion is present. IMPRESSION: AVN of the right hip with subchondral signal abnormality. The study is significantly degraded by motion.
[2019-04-26 16:00] VITALS: BP 117/43
--- NOTE | 2019-04-26 16:00 | NUR ---
HAND-OFF: Report given to Marlen CAPPS. Pt remains stable.
--- NOTE | 2019-04-26 16:21 | Nephrology Progress Note ---
Assessment/Plan Problem List: (1) ESRD on hemodialysis (2) Peripheral vascular disease (3) HIV (human immunodeficiency virus infection) (4) Coronary artery disease (5) Atrial fibrillation Assessment Right Hip Fx- Renal Osteo Dystrophy ESRD, High K of 6.2 HTN of CKD Asthma At Fib CAD PVD HIV Disease Sz disorder Plan Plan: HD 04/24 next 04/26 BP control pain management phos binders lactulose ortho eval per orders Subjective ROS Limited/Unobtainable: No Constitutional: Reports: malaise Objective Objective Last 24 Hour Vital Signs Date Time Temp Pulse Resp B/P (MAP) Pulse Ox O2 Delivery O2 Flow Rate FiO2 04/26/19 12:00 53 04/26/19 11:55 98.2 66 22 119/59 (79) 100 04/26/19 09:40 68 20 98 Nasal Cannula 2.0 28 04/26/19 09:40 98 Nasal Cannula 2.0 28 04/26/19 09:00 Room Air 04/26/19 08:16 69 99/62 04/26/19 08:00 97.5 69 20 99/62 (74) 98 04/26/19 08:00 68 04/26/19 04:00 98.1 66 20 110/66 (81) 95 04/26/19 04:00 60 04/26/19 00:00 55 04/26/19 00:00 98.7 61 18 114/63 (80) 97 04/25/19 21:57 99 Nasal Cannula 2.0 28 04/25/19 21:55 56 20 99 Nasal Cannula 2.0 28 04/25/19 21:00 Room Air 04/25/19 20:00 98.4 55 18 100/57 (71) 98 04/25/19 19:59 104 Intake and Output 04/25/19 04/26/19 19:00 07:00 Intake Total 120 ml 240 ml Balance 120 ml 240 ml Intake Oral 120 ml 240 ml Laboratory Tests 04/25/19 21:05: Troponin I 0.067H 04/26/19 05:45: White Blood Count [Pending], Red Blood Count 4.33L, Hemoglobin 10.5L, Hematocrit 34.2L, Mean Corpuscular Volume 79L, Mean Corpuscular Hemoglobin 24.2L , Mean Corpuscular Hemoglobin Concent 30.7L, Red Cell Distribution Width 19.6H, Platelet Count 98L, Mean Platelet Volume 6.1L, Neutrophils (%) (Auto) , Lymphocytes (%) (Auto) , Monocytes (%) (Auto) , Eosinophils (%) (Auto) , Basophils (%) (Auto) , Differential Total Cells Counted 100, Neutrophils % ( Manual) 46, Lymphocytes % (Manual) 24, Monocytes % (Manual) 24H, Eosinophils % ( Manual) 6H, Basophils % (Manual) 0, Band Neutrophils 0, Lymphocytes [Pending], Platelet Estimate DecreasedL, Platelet Morphology Normal, Anisocytosis 1+, Sodium Level 137, Potassium Level 3.8, Chloride Level 96L, Carbon Dioxide Level 24, Anion Gap 18H, Blood Urea Nitrogen 84H, Creatinine 12.7H, Estimat Glomerular Filtration Rate 5.0, Glucose Level 118H, Calcium Level 9.9, Phosphorus Level 12.0H, Total Bilirubin 0.6, Aspartate Amino Transf (AST/SGOT) 54H, Alanine Aminotransferase (ALT/SGPT) 29, Alkaline Phosphatase 71, Total Protein 7.5, Albumin 2.8L, Globulin 4.7, Albumin/Globulin Ratio 0.6L, Percent CD3 Cells [Pending], Absolute CD3 Count [Pending], Percent CD4 Cells [Pending], Absolute CD4 Count [Pending], T-Lymphocyte CD4/CD8 Ratio [Pending], Percent CD8 Cells [Pending], Absolute CD8 Count [Pending], HIV-1 RNA (PCR) log10 Value [ Pending], HIV-1 RNA Ultraquantitative (PCR) [Pending] Height (Feet): 6 Height (Inches): 3.00 Weight (Pounds): 193 General Appearance: no apparent distress Objective no change Perfecto Thomas MD Apr 26, 2019 16:21
--- NOTE | 2019-04-26 16:46 | Internal Med Progress Note ---
Subjective Date of Service: Apr 26, 2019 Physician Name Fabricio Guillory Attending Physician Nabeel Hoff MD Current Medications Medications (Trade) Dose Ordered Sig/Anum Route PRN Reason Start Time Stop Time Status Last Admin Dose Admin Acetaminophen (Tylenol) 650 mg Q4H PRN ORAL Prn Headache/Temp > 101 04/24/19 13:00 05/24/19 12:59 Albuterol/ Ipratropium (Albuterol/ Ipratropium) 3 ml Q4H PRN HHN Shortness of Breath 04/23/19 23:15 04/28/19 23:14 Dextrose (Dextrose 50%) 25 ml Q30M PRN IV Hypoglycemia 04/23/19 23:15 05/23/19 23:14 Dextrose (Dextrose 50%) 50 ml Q30M PRN IV Hypoglycemia 04/23/19 23:15 05/23/19 23:14 Diphenhydramine HCl (Benadryl) 25 mg DAILYPRN PRN IVP Give with dialysis treatments 04/24/19 17:30 05/24/19 17:29 Docusate Sodium (Colace) 100 mg THREE TIMES A DAY ORAL 04/24/19 13:00 05/24/19 12:59 04/26/19 13:19 Gabapentin (Neurontin) 300 mg BID ORAL 04/24/19 18:00 05/24/19 17:59 04/26/19 08:17 Gadobutrol (Gadavist) 7.5 mmol NOW PRN IV Radiology Procedure 04/24/19 20:15 04/28/19 20:03 Hydralazine HCl (Apresoline) 10 mg Q4H PRN IV bp over 160 syst 04/24/19 13:00 05/24/19 12:59 Hydromorphone HCl (Dilaudid) 3 mg Q3H PRN IVP Severe Pain (Pain Scale 7-10) 04/25/19 19:15 05/02/19 19:14 04/26/19 12:12 Lactulose (Cephulac) 20 gm THREE TIMES A DAY ORAL 04/25/19 18:00 05/25/19 17:59 04/26/19 13:19 Lorazepam (Ativan 2mg/ml 1ml) 0.5 mg ONCE PRN IV prior to MRI procedure 04/25/19 13:00 04/26/19 23:59 Lorazepam (Ativan 2mg/ml 1ml) 0.5 mg Q6H PRN IV For Seizures 04/24/19 17:30 05/01/19 17:29 04/26/19 14:20 Metoprolol Tartrate (Lopressor) 12.5 mg Q12HR ORAL 04/26/19 09:00 05/26/19 08:59 Ondansetron HCl (Zofran) 4 mg Q6H PRN IVP Nausea & Vomiting 04/23/19 23:15 05/23/19 23:14 Oxycodone HCl (Roxicodone) 30 mg Q6H PRN ORAL Moderate Pain (Pain Scale 4-6) 04/24/19 09:45 04/30/19 23:14 Pantoprazole (Protonix) 40 mg EVERY 12 HOURS ORAL 04/24/19 21:00 05/24/19 20:59 04/26/19 08:16 Patient Own Medication (Patient's Own Med) 1 ea BID ORAL 04/26/19 18:00 05/26/19 17:59 Patient Own Medication (Patient's Own Med) 1 ea DAILY ORAL 04/26/19 17:00 05/26/19 16:59 Patient Own Medication (Patient's Own Med) 1 ea DAILY ORAL 04/26/19 17:00 05/26/19 16:59 Polyethylene Glycol (Miralax) 17 gm DAILYPRN PRN ORAL Constipation 04/23/19 23:15 05/23/19 23:14 Pravastatin Sodium (Pravachol) 40 mg QHS ORAL 04/24/19 21:00 05/24/19 20:59 04/25/19 20:46 Sevelamer Carbonate (Renvela) 2,400 mg THREE TIMES A DAY ORAL 04/25/19 18:00 05/24/19 12:59 04/26/19 13:19 Temazepam (Restoril) 15 mg HSPRN PRN ORAL Insomnia 04/23/19 23:15 04/30/19 23:14 04/24/19 23:19 Allergies: Coded Allergies: FLUTICASONE (Unverified Allergy, Unknown, 02/23/17) LEVOFLOXACIN (Unverified Allergy, Unknown, 08/22/14) MORPHINE (Unverified Allergy, Unknown, 02/23/17) ROS Limited/Unobtainable: No Constitutional: Reports: no symptoms HEENT: Reports: no symptoms Cardiovascular: Reports: no symptoms Respiratory: Reports: no symptoms Gastrointestinal/Abdominal: Reports: no symptoms Genitourinary: Reports: no symptoms Subjective 53 YO M admitted with right hip pain. Now avascular necrosis right femoral head. Cover for Int Juliano-Dr Hoff Objective Last Vital Signs Date Time Temp Pulse Resp B/P (MAP) Pulse Ox O2 Delivery O2 Flow Rate FiO2 04/26/19 12:00 53 04/26/19 11:55 98.2 22 119/59 (79) 100 04/26/19 09:40 Nasal Cannula 2.0 28 Laboratory Tests Test 04/25/19 21:05 04/26/19 05:45 Troponin I 0.067 ng/mL (0.000-0.056) White Blood Count Pending Red Blood Count 4.33 M/UL (4.70-6.10) L Hemoglobin 10.5 G/DL (14.2-18.0) L Hematocrit 34.2 % (42.0-52.0) L Mean Corpuscular Volume 79 FL (80-99) L Mean Corpuscular Hemoglobin 24.2 PG (27.0-31.0) L Mean Corpuscular Hemoglobin Concent 30.7 G/DL (32.0-36.0) L Red Cell Distribution Width 19.6 % (11.6-14.8) H Platelet Count 98 K/UL (150-450) L Mean Platelet Volume 6.1 FL (6.5-10.1) L Neutrophils (%) (Auto) % (45.0-75.0) Lymphocytes (%) (Auto) % (20.0-45.0) Monocytes (%) (Auto) % (1.0-10.0) Eosinophils (%) (Auto) % (0.0-3.0) Basophils (%) (Auto) % (0.0-2.0) Differential Total Cells Counted 100 Neutrophils % (Manual) 46 % (45-75) Lymphocytes % (Manual) 24 % (20-45) Monocytes % (Manual) 24 % (1-10) H Eosinophils % (Manual) 6 % (0-3) H Basophils % (Manual) 0 % (0-2) Band Neutrophils 0 % (0-8) Lymphocytes Pending Platelet Estimate Decreased L Platelet Morphology Normal Anisocytosis 1+ Sodium Level 137 MMOL/L (136-145) Potassium Level 3.8 MMOL/L (3.5-5.1) Chloride Level 96 MMOL/L (98-107) L Carbon Dioxide Level 24 MMOL/L (21-32) Anion Gap 18 mmol/L (5-15) H Blood Urea Nitrogen 84 mg/dL (7-18) H Creatinine 12.7 MG/DL (0.55-1.30) H Estimat Glomerular Filtration Rate 5.0 mL/min (>60) Glucose Level 118 MG/DL (74-106) H Calcium Level 9.9 MG/DL (8.5-10.1) Phosphorus Level 12.0 MG/DL (2.5-4.9) H Total Bilirubin 0.6 MG/DL (0.2-1.0) Aspartate Amino Transf (AST/SGOT) 54 U/L (15-37) H Alanine Aminotransferase (ALT/SGPT) 29 U/L (12-78) Alkaline Phosphatase 71 U/L (46-116) Total Protein 7.5 G/DL (6.4-8.2) Albumin 2.8 G/DL (3.4-5.0) L Globulin 4.7 g/dL Albumin/Globulin Ratio 0.6 (1.0-2.7) L Percent CD3 Cells Pending Absolute CD3 Count Pending Percent CD4 Cells Pending Absolute CD4 Count Pending T-Lymphocyte CD4/CD8 Ratio Pending Percent CD8 Cells Pending Absolute CD8 Count Pending HIV-1 RNA (PCR) log10 Value Pending HIV-1 RNA Ultraquantitative (PCR) Pending Intake and Output 04/25/19 04/26/19 19:00 07:00 Intake Total 120 ml 240 ml Balance 120 ml 240 ml Intake Oral 120 ml 240 ml Objective PHYSICAL EXAMINATION: GENERAL: The patient is well-developed and well-nourished male, in no apparent distress. HEENT: Eyes, pupils are equal and responsive to light and accommodation. Extraocular movements are intact. NECK: Supple. No lymphadenopathy. CHEST: Lungs are clear to auscultation bilaterally without wheezes or rales. CARDIOVASCULAR: Regular rhythm and rate. S1 and S2 normal without murmurs, rubs, or gallops. ABDOMEN: Soft, nontender, and nondistended. Positive bowel sounds. No evidence of hepatosplenomegaly. Currently, no rebound or guarding noted. EXTREMITIES: Negative for clubbing, cyanosis, or edema. RECTAL/GENITAL: Refused. NEUROLOGIC: Cranial nerves II through XII are grossly intact without focal deficits. Motor strength is 5/5 bilaterally. Deep tendon reflexes are 2+ plantar. Assessment/Plan Assessment/Plan ASSESSMENT: This is a 53-year-old, male. 1. ?Fracture of the right femoral head? 2. Avascular necrosis of the right femoral head. 3. Human immunodeficiency virus. 4. End-stage renal disease. 5. Atrial fibrillation. 6. Hypertension. 7. Coronary artery disease. 8. History of deep venous thrombosis. TREATMENT: 1.Avascular necrosis of the right femoral head. An Orthopedic consultation has been obtained with Dr. Mannie Rogers-see consult note. An MRI o fthe right hip inconclusive to confirm fracture. The patient has been cleared by cardiology for surgery-see note. 2. Human immunodeficiency virus. Continue HAART medications as above. 4. End-stage renal disease. Nephrology consultation obtained with Dr. Thomas. The patient is S/P dialysis on April 26, 2019. 5. Atrial fibrillation. A Cardiology consultation has been obtained with Dr. Heath Valencia. 6. Hypertension. Continue atenolol as above. 7. Coronary artery disease. As above, a Cardiology consultation has been obtained with Dr. Heath Valencia. 8. History of deep venous thrombosis. Fabricio Guillory MD Apr 26, 2019 16:46
[2019-04-26] MEDS: Patient's Own Med - Ritonavir 100mg ORAL SCH (17:14)
--- NOTE | 2019-04-26 19:09 | NUR ---
NURSE NOTES: Report given to JEFRY Shafer. Pt is in stable condition; plan of care endorsed.
--- NOTE | 2019-04-26 19:30 | NUR ---
NURSE NOTES: Received report from Marlen CAPPS. Patient in bed, asleep but responsive when awaken, on 2L NC, no signs of respiratory distress.
[2019-04-26 20:00] VITALS: BP 121/67
--- NOTE | 2019-04-26 21:00 | NUR ---
NURSE NOTES: Patient cleaned his penis wound with saline and gauze, and applied optifoam dresssing on it.
[2019-04-27] VITALS: BP 104/63
[2019-04-27] MEDS: oxyCODONE 15mg IR tab ORAL PRN (01:06)
[2019-04-27 04:00] VITALS: BP 96/58
--- NOTE | 2019-04-27 07:25 | NUR ---
HAND-OFF: Report given to Min RN. Patient in stable condition, plan of care endorsed.
--- NOTE | 2019-04-27 07:25 | NUR ---
NURSE NOTES: Received report from Hollis CAPPS. Pt in bed awake and No c/o pain. Bed in lowest position and locked. Rhythm with A-fib reported during previous shift. IV in Right EJ with 20G SL intact and symptomatic. Bed in lowest position and locked. Wound on penis noted with small amount of drainage and will follow up with MD and wound nurse for Tx. Call light within easy reach. No signs of distress noted. Will continue to plan of care.
[2019-04-27 08:00] VITALS: BP 94/57
--- NOTE | 2019-04-27 08:30 | NUR ---
NURSE NOTES: Dr. Schulte's office called to ask about the patient's plan for surgery. Per medical assistance for Dr. Schulte, dr schul[place] [facility] [place] and he might see Mr Sen today once all his scheduled surgeries done.
[2019-04-27] MEDS: Docusate 100mg cap ORAL SCH ×3 (08:44→17:29)
[2019-04-27] MEDS: Lactulose 20gm/30ml UDC ORAL SCH ×3 (08:44→17:28)
[2019-04-27] MEDS: Metoprolol Tartrate 12.5mg TAB ORAL SCH ×2 (08:45→21:00)
[2019-04-27] MEDS: Patient's Own Med - Ritonavir 100mg ORAL SCH (08:49)
[2019-04-27 08:51] LABS: HEMATOCRIT 32.6 % (42.0-52.0); MEAN CORPUSCULAR VOLUME 80 FL (80-99); PLATELET COUNT 81 K/UL (150-450); RED CELL DISTRIBUTION WIDTH 19.4 % (11.6-14.8); WHITE BLOOD COUNT 3.5 K/UL (4.8-10.8)
[2019-04-27 09:03] LABS: ANION GAP 17 mmol/L (5-15); BLOOD UREA NITROGEN 93 mg/dL (7-18); CARBON DIOXIDE 23 MMOL/L (21-32); CHLORIDE 97 MMOL/L (98-107); CREATININE 14.4 MG/DL (0.55-1.30); POTASSIUM 4.5 MMOL/L (3.5-5.1); SODIUM 137 MMOL/L (136-145)
--- NOTE | 2019-04-27 09:59 | Nephrology Progress Note ---
Assessment/Plan Problem List: (1) ESRD on hemodialysis (2) Peripheral vascular disease (3) HIV (human immunodeficiency virus infection) (4) Coronary artery disease (5) Atrial fibrillation Assessment Right Hip Fx- Renal Osteo Dystrophy ESRD, High K of 6.2 HTN of CKD Asthma At Fib CAD PVD HIV Disease Sz disorder Plan Plan: HD 04/24 next 04/26 and 04/27 as the HD on 04/26 was in complete due to cath malfunction BP control pain management phos binders lactulose ortho eval per orders Subjective ROS Limited/Unobtainable: No Objective Objective Last 24 Hour Vital Signs Date Time Temp Pulse Resp B/P (MAP) Pulse Ox O2 Delivery O2 Flow Rate FiO2 04/27/19 09:00 Room Air 04/27/19 08:45 58 94/57 04/27/19 08:28 97 Nasal Cannula 2.0 28 04/27/19 08:00 53 04/27/19 08:00 98.0 58 20 94/57 (69) 96 04/27/19 04:00 98.5 63 18 96/58 (71) 100 04/27/19 03:42 47 04/27/19 00:00 61 04/27/19 00:00 97.5 64 20 104/63 (77) 100 04/26/19 21:24 66 121/67 04/26/19 21:00 Room Air 04/26/19 20:00 98.2 66 18 121/67 (85) 100 04/26/19 20:00 62 04/26/19 19:14 61 18 98 Nasal Cannula 2.0 28 04/26/19 19:14 98 Nasal Cannula 2.0 28 04/26/19 16:00 61 04/26/19 16:00 98.2 68 23 117/43 (67) 98 04/26/19 12:00 53 04/26/19 11:55 98.2 66 22 119/59 (79) 100 Intake and Output 04/26/19 04/27/19 18:59 06:59 Intake Total 200 ml Output Total 50 ml Balance 150 ml Intake Oral 200 ml Output Urine Total 50 ml # Voids 1 # Bowel Movements 1 Laboratory Tests 04/27/19 07:25: White Blood Count 3.5L, Red Blood Count 4.10L, Hemoglobin 10.0L, Hematocrit 32.6L, Mean Corpuscular Volume 80, Mean Corpuscular Hemoglobin 24.3L, Mean Corpuscular Hemoglobin Concent 30.5L, Red Cell Distribution Width 19.4H, Platelet Count 81L, Mean Platelet Volume 6.5, Neutrophils (%) (Auto) , Lymphocytes (%) (Auto) , Monocytes (%) (Auto) , Eosinophils (%) (Auto) , Basophils (%) (Auto) , Neutrophils % (Manual) [Pending], Lymphocytes % (Manual) [Pending], Platelet Estimate [Pending], Platelet Morphology [Pending], Sodium Level 137, Potassium Level 4.5, Chloride Level 97L, Carbon Dioxide Level 23, Anion Gap 17H, Blood Urea Nitrogen 93H, Creatinine 14.4H, Estimat Glomerular Filtration Rate 4.4, Glucose Level 90, Calcium Level 10.0 Height (Feet): 6 Height (Inches): 3.00 Weight (Pounds): 198 General Appearance: no apparent distress Objective no change Perfecto Thomas MD Apr 27, 2019 09:59
[2019-04-27 10:31] LABS: PHOSPHORUS 12.8 MG/DL (2.5-4.9)
--- NOTE | 2019-04-27 10:35 | NUR ---
CASE MANAGEMENT:REVIEW 04/27/19 SI: RT HIP AVASCULAR NECROSIS RT HIP FRACTURE. 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
--- NOTE | 2019-04-27 10:51 | Infectious Diseases Prog Note ---
Assessment/Plan Assessment/Plan Abx: None Assessment: R femoral avascular necrosis -MRI HIp: AVN of the right hip with subchondral signal abnormality. The study is significantly degraded by motion. -CT hip: Evidence of avascular necrosis of the right hip with subchondral fractures and moderate arthrosis. Renal osteodystrophy. Other findings as above Afebrile Pancytopenia HIV dx 1994- on ARV- -12/2017: VL 460; CD4 133 (2014) HLD Asthma HTN GERD CAD PVD -s/p L 3rd and 4th toe amputation chronic L 2nd toe OM s/p tx 12/2017 hx pericardial effusion ESRD on HD TTSat w/ thrombose R upper arm AV graft, on kidney transplant list Seizure disorder syncope s/p cholecystectomy s/p appendectomy s/p lumbar laminectomy, Plan: -Continue to monitor off systemic antibiotics -Continue ARV: Prezista, Norvir, Isentress -f/u cx -Monitor CBC/CMP, temperatures -Ortho f/u -f/u Cd4, VL Thank you for this consultation. Will continue to follow along with you. Discussed with RN. Subjective Allergies: Coded Allergies: FLUTICASONE (Unverified Allergy, Unknown, 02/23/17) LEVOFLOXACIN (Unverified Allergy, Unknown, 08/22/14) MORPHINE (Unverified Allergy, Unknown, 02/23/17) Subjective afebrile no leukocytosis Objective Vital Signs Last 24 Hour Vital Signs Date Time Temp Pulse Resp B/P (MAP) Pulse Ox O2 Delivery O2 Flow Rate FiO2 04/27/19 09:00 Room Air 04/27/19 08:45 58 94/57 04/27/19 08:28 97 Nasal Cannula 2.0 28 04/27/19 08:00 53 04/27/19 08:00 98.0 58 20 94/57 (69) 96 04/27/19 04:00 98.5 63 18 96/58 (71) 100 04/27/19 03:42 47 04/27/19 00:00 61 04/27/19 00:00 97.5 64 20 104/63 (77) 100 04/26/19 21:24 66 121/67 04/26/19 21:00 Room Air 04/26/19 20:00 98.2 66 18 121/67 (85) 100 04/26/19 20:00 62 04/26/19 19:14 61 18 98 Nasal Cannula 2.0 28 04/26/19 19:14 98 Nasal Cannula 2.0 28 04/26/19 16:00 61 04/26/19 16:00 98.2 68 23 117/43 (67) 98 04/26/19 12:00 53 04/26/19 11:55 98.2 66 22 119/59 (79) 100 Height (Feet): 6 Height (Inches): 3.00 Weight (Pounds): 198 Objective GENERAL: The patient is well-developed and well-nourished male, in no apparent distress. HEENT: Eyes, pupils are equal and responsive to light and accommodation. Extraocular movements are intact. NECK: Supple. No lymphadenopathy. CHEST: Lungs are clear to auscultation bilaterally without wheezes or rales. CARDIOVASCULAR: Regular rhythm and rate. S1 and S2 normal without murmurs, rubs, or gallops. ABDOMEN: Soft, nontender, and nondistended. Positive bowel sounds. No evidence of hepatosplenomegaly. Currently, no rebound or guarding noted. EXTREMITIES: Negative for clubbing, cyanosis, or edema. NEUROLOGIC: Cranial nerves II through XII are grossly intact without focal deficits. Motor strength is 5/5 bilaterally. Deep tendon reflexes are 2+ plantar Laboratory Tests Test 04/27/19 07:25 White Blood Count 3.5 K/UL (4.8-10.8) L Red Blood Count 4.10 M/UL (4.70-6.10) L Hemoglobin 10.0 G/DL (14.2-18.0) L Hematocrit 32.6 % (42.0-52.0) L Mean Corpuscular Volume 80 FL (80-99) Mean Corpuscular Hemoglobin 24.3 PG (27.0-31.0) L Mean Corpuscular Hemoglobin Concent 30.5 G/DL (32.0-36.0) L Red Cell Distribution Width 19.4 % (11.6-14.8) H Platelet Count 81 K/UL (150-450) L Mean Platelet Volume 6.5 FL (6.5-10.1) Neutrophils (%) (Auto) % (45.0-75.0) Lymphocytes (%) (Auto) % (20.0-45.0) Monocytes (%) (Auto) % (1.0-10.0) Eosinophils (%) (Auto) % (0.0-3.0) Basophils (%) (Auto) % (0.0-2.0) Differential Total Cells Counted 100 Neutrophils % (Manual) 44 % (45-75) L Lymphocytes % (Manual) 34 % (20-45) Monocytes % (Manual) 15 % (1-10) H Eosinophils % (Manual) 7 % (0-3) H Basophils % (Manual) 0 % (0-2) Band Neutrophils 0 % (0-8) Platelet Estimate Decreased L Platelet Morphology Normal Hypochromasia 1+ Anisocytosis 1+ Sodium Level 137 MMOL/L (136-145) Potassium Level 4.5 MMOL/L (3.5-5.1) Chloride Level 97 MMOL/L (98-107) L Carbon Dioxide Level 23 MMOL/L (21-32) Anion Gap 17 mmol/L (5-15) H Blood Urea Nitrogen 93 mg/dL (7-18) H Creatinine 14.4 MG/DL (0.55-1.30) H Estimat Glomerular Filtration Rate 4.4 mL/min (>60) Glucose Level 90 MG/DL (74-106) Calcium Level 10.0 MG/DL (8.5-10.1) Phosphorus Level 12.8 MG/DL (2.5-4.9) H Magnesium Level 2.4 MG/DL (1.8-2.4) Current Medications Medications (Trade) Dose Ordered Sig/Anum Route PRN Reason Start Time Stop Time Status Last Admin Dose Admin Acetaminophen (Tylenol) 650 mg Q4H PRN ORAL Prn Headache/Temp > 101 04/24/19 13:00 05/24/19 12:59 Albuterol/ Ipratropium (Albuterol/ Ipratropium) 3 ml Q4H PRN HHN Shortness of Breath 04/23/19 23:15 04/28/19 23:14 Dextrose (Dextrose 50%) 25 ml Q30M PRN IV Hypoglycemia 04/23/19 23:15 05/23/19 23:14 Dextrose (Dextrose 50%) 50 ml Q30M PRN IV Hypoglycemia 04/23/19 23:15 05/23/19 23:14 Diphenhydramine HCl (Benadryl) 25 mg DAILYPRN PRN IVP Give with dialysis treatments 04/24/19 17:30 05/24/19 17:29 Docusate Sodium (Colace) 100 mg THREE TIMES A DAY ORAL 04/24/19 13:00 05/24/19 12:59 04/27/19 08:44 Gabapentin (Neurontin) 300 mg BID ORAL 04/24/19 18:00 05/24/19 17:59 04/27/19 08:44 Gadobutrol (Gadavist) 7.5 mmol NOW PRN IV Radiology Procedure 04/24/19 20:15 04/28/19 20:03 Hydralazine HCl (Apresoline) 10 mg Q4H PRN IV bp over 160 syst 04/24/19 13:00 05/24/19 12:59 Hydromorphone HCl (Dilaudid) 3 mg Q3H PRN IVP Severe Pain (Pain Scale 7-10) 04/25/19 19:15 05/02/19 19:14 04/27/19 08:57 Lactulose (Cephulac) 20 gm THREE TIMES A DAY ORAL 04/25/19 18:00 05/25/19 17:59 04/27/19 08:44 Lorazepam (Ativan 2mg/ml 1ml) 0.5 mg Q6H PRN IV For Seizures 04/24/19 17:30 05/01/19 17:29 04/26/19 14:20 Metoprolol Tartrate (Lopressor) 12.5 mg Q12HR ORAL 04/26/19 09:00 05/26/19 08:59 04/26/19 21:24 Ondansetron HCl (Zofran) 4 mg Q6H PRN IVP Nausea & Vomiting 04/23/19 23:15 05/23/19 23:14 Oxycodone HCl (Roxicodone) 30 mg Q6H PRN ORAL Moderate Pain (Pain Scale 4-6) 04/24/19 09:45 04/30/19 23:14 04/27/19 01:06 Pantoprazole (Protonix) 40 mg EVERY 12 HOURS ORAL 04/24/19 21:00 05/24/19 20:59 04/27/19 08:44 Patient Own Medication (Patient's Own Med) 1 ea BID ORAL 04/26/19 18:00 05/26/19 17:59 04/27/19 08:49 Patient Own Medication (Patient's Own Med) 1 ea DAILY ORAL 04/26/19 17:00 05/26/19 16:59 04/27/19 08:49 Patient Own Medication (Patient's Own Med) 1 ea DAILY ORAL 04/26/19 17:00 05/26/19 16:59 04/27/19 08:49 Polyethylene Glycol (Miralax) 17 gm DAILYPRN PRN ORAL Constipation 04/23/19 23:15 05/23/19 23:14 Pravastatin Sodium (Pravachol) 40 mg QHS ORAL 04/24/19 21:00 05/24/19 20:59 04/26/19 21:24 Sevelamer Carbonate (Renvela) 2,400 mg THREE TIMES A DAY ORAL 04/25/19 18:00 05/24/19 12:59 04/27/19 08:44 Temazepam (Restoril) 15 mg HSPRN PRN ORAL Insomnia 04/23/19 23:15 04/30/19 23:14 04/24/19 23:19 Sari Duncan M.D. Apr 27, 2019 10:51
--- NOTE | 2019-04-27 11:28 | Pulmonology Progress Note ---
Assessment/Plan Problems: (1) Fracture of head of right femur (2) Avascular necrosis of bone of hip (3) Atrial fibrillation (4) HIV (human immunodeficiency virus infection) (5) Hypertension (6) ESRD on hemodialysis (7) Anemia in chronic kidney disease (8) Seizure disorder (9) Coronary artery disease (10) Pancreatitis, chronic Assessment/Plan MRI is done, doubt it was very helpful HD today all reviewed BP more stable now pain management HD access site needs to be changed symptomatic treatment f/u troponin Subjective ROS Limited/Unobtainable: No Constitutional: Reports: no symptoms HEENT: Repors: no symptoms Respiratory: Reports: no symptoms Allergies: Coded Allergies: FLUTICASONE (Unverified Allergy, Unknown, 02/23/17) LEVOFLOXACIN (Unverified Allergy, Unknown, 08/22/14) MORPHINE (Unverified Allergy, Unknown, 02/23/17) Objective Last 24 Hour Vital Signs Date Time Temp Pulse Resp B/P (MAP) Pulse Ox O2 Delivery O2 Flow Rate FiO2 04/27/19 09:00 Room Air 04/27/19 08:45 58 94/57 04/27/19 08:28 97 Nasal Cannula 2.0 28 04/27/19 08:00 53 04/27/19 08:00 98.0 58 20 94/57 (69) 96 04/27/19 04:00 98.5 63 18 96/58 (71) 100 04/27/19 03:42 47 04/27/19 00:00 61 04/27/19 00:00 97.5 64 20 104/63 (77) 100 04/26/19 21:24 66 121/67 04/26/19 21:00 Room Air 04/26/19 20:00 98.2 66 18 121/67 (85) 100 04/26/19 20:00 62 04/26/19 19:14 61 18 98 Nasal Cannula 2.0 28 04/26/19 19:14 98 Nasal Cannula 2.0 28 04/26/19 16:00 61 04/26/19 16:00 98.2 68 23 117/43 (67) 98 04/26/19 12:00 53 04/26/19 11:55 98.2 66 22 119/59 (79) 100 Intake and Output 04/26/19 04/27/19 19:00 07:00 Intake Total 200 ml 240 ml Output Total 50 ml Balance 150 ml 240 ml Intake Oral 200 ml 240 ml Output Urine Total 50 ml # Voids 1 # Bowel Movements 1 Objective MRI pending General Appearance: WD/WN HEENT: normocephalic, anicteric, PERRL Respiratory/Chest: chest wall non-tender, lungs clear Cardiovascular: normal peripheral pulses, regularly irregular Abdomen: normal bowel sounds, soft, non tender Extremities: no cyanosis Skin: no rash Laboratory Tests 04/27/19 07:25: White Blood Count 3.5L, Red Blood Count 4.10L, Hemoglobin 10.0L, Hematocrit 32.6L, Mean Corpuscular Volume 80, Mean Corpuscular Hemoglobin 24.3L, Mean Corpuscular Hemoglobin Concent 30.5L, Red Cell Distribution Width 19.4H, Platelet Count 81L, Mean Platelet Volume 6.5, Neutrophils (%) (Auto) , Lymphocytes (%) (Auto) , Monocytes (%) (Auto) , Eosinophils (%) (Auto) , Basophils (%) (Auto) , Differential Total Cells Counted 100, Neutrophils % ( Manual) 44L, Lymphocytes % (Manual) 34, Monocytes % (Manual) 15H, Eosinophils % (Manual) 7H, Basophils % (Manual) 0, Band Neutrophils 0, Platelet Estimate DecreasedL, Platelet Morphology Normal, Hypochromasia 1+, Anisocytosis 1+, Sodium Level 137, Potassium Level 4.5, Chloride Level 97L, Carbon Dioxide Level 23, Anion Gap 17H, Blood Urea Nitrogen 93H, Creatinine 14.4H, Estimat Glomerular Filtration Rate 4.4, Glucose Level 90, Calcium Level 10.0, Phosphorus Level 12.8H, Magnesium Level 2.4 Current Medications Medications (Trade) Dose Ordered Sig/Anum Route PRN Reason Start Time Stop Time Status Last Admin Dose Admin Acetaminophen (Tylenol) 650 mg Q4H PRN ORAL Prn Headache/Temp > 101 04/24/19 13:00 05/24/19 12:59 Albuterol/ Ipratropium (Albuterol/ Ipratropium) 3 ml Q4H PRN HHN Shortness of Breath 04/23/19 23:15 04/28/19 23:14 Dextrose (Dextrose 50%) 25 ml Q30M PRN IV Hypoglycemia 04/23/19 23:15 05/23/19 23:14 Dextrose (Dextrose 50%) 50 ml Q30M PRN IV Hypoglycemia 04/23/19 23:15 05/23/19 23:14 Diphenhydramine HCl (Benadryl) 25 mg DAILYPRN PRN IVP Give with dialysis treatments 04/24/19 17:30 05/24/19 17:29 Docusate Sodium (Colace) 100 mg THREE TIMES A DAY ORAL 04/24/19 13:00 05/24/19 12:59 04/27/19 08:44 Gabapentin (Neurontin) 300 mg BID ORAL 04/24/19 18:00 05/24/19 17:59 04/27/19 08:44 Gadobutrol (Gadavist) 7.5 mmol NOW PRN IV Radiology Procedure 04/24/19 20:15 04/28/19 20:03 Hydralazine HCl (Apresoline) 10 mg Q4H PRN IV bp over 160 syst 04/24/19 13:00 05/24/19 12:59 Hydromorphone HCl (Dilaudid) 3 mg Q3H PRN IVP Severe Pain (Pain Scale 7-10) 04/25/19 19:15 05/02/19 19:14 04/27/19 08:57 Lactulose (Cephulac) 20 gm THREE TIMES A DAY ORAL 04/25/19 18:00 05/25/19 17:59 04/27/19 08:44 Lorazepam (Ativan 2mg/ml 1ml) 0.5 mg Q6H PRN IV For Seizures 04/24/19 17:30 05/01/19 17:29 04/26/19 14:20 Metoprolol Tartrate (Lopressor) 12.5 mg Q12HR ORAL 04/26/19 09:00 05/26/19 08:59 04/26/19 21:24 Ondansetron HCl (Zofran) 4 mg Q6H PRN IVP Nausea & Vomiting 04/23/19 23:15 05/23/19 23:14 Oxycodone HCl (Roxicodone) 30 mg Q6H PRN ORAL Moderate Pain (Pain Scale 4-6) 04/24/19 09:45 04/30/19 23:14 04/27/19 01:06 Pantoprazole (Protonix) 40 mg EVERY 12 HOURS ORAL 04/24/19 21:00 05/24/19 20:59 04/27/19 08:44 Patient Own Medication (Patient's Own Med) 1 ea BID ORAL 04/26/19 18:00 05/26/19 17:59 04/27/19 08:49 Patient Own Medication (Patient's Own Med) 1 ea DAILY ORAL 04/26/19 17:00 05/26/19 16:59 04/27/19 08:49 Patient Own Medication (Patient's Own Med) 1 ea DAILY ORAL 04/26/19 17:00 05/26/19 16:59 04/27/19 08:49 Polyethylene Glycol (Miralax) 17 gm DAILYPRN PRN ORAL Constipation 04/23/19 23:15 05/23/19 23:14 Pravastatin Sodium (Pravachol) 40 mg QHS ORAL 04/24/19 21:00 05/24/19 20:59 04/26/19 21:24 Sevelamer Carbonate (Renvela) 2,400 mg THREE TIMES A DAY ORAL 04/25/19 18:00 05/24/19 12:59 04/27/19 08:44 Temazepam (Restoril) 15 mg HSPRN PRN ORAL Insomnia 04/23/19 23:15 04/30/19 23:14 04/24/19 23:19 Srinivasan Patterson MD Apr 27, 2019 11:28
[2019-04-27 11:44] VITALS: BP 105/63
--- NOTE | 2019-04-27 11:57 | NUR ---
RD ASSESSMENT & RECOMMENDATIONS SEE CARE ACTIVITY FOR COMPLETE ASSESSMENT DAILY ESTIMATED NEEDS: Needs based on ESRD on HD, HIV, 87kg 30-35 kcals/kg [id number] total kcals 1.2-1.8 g protein/kg 104-157 g total protein Per MD, on HD NUTRITION DIAGNOSIS: 1) Increased KCAL and protein needs R/T renal dysfunction, infection, as evidenced by pt w/ ESRD on HD, HIV+. CURRENT DIET: RENAL PO DIET RECOMMENDATIONS: RENAL W/ DOUBLE PROTEIN + NEPRO daily + Snacks BID ADDITIONAL RECOMMENDATIONS: * Rec high prot snacks in between meals * Nepro 1 can daily * STANDING WEIGHTS post HD * Rec WC eval / f/up -
--- NOTE | 2019-04-27 12:08 | Cardiac Electrophysiology PN ---
Assessment/Plan Assessment/Plan 1. Nonsustained ventricular tachycardia. Could be atrial fib with aberrancy. S/ P hemodialysis. EF 45-50%. No recurrence 2. Atrial fibrillation with bradycardia Decrease atenolol to 25 mg daily. On subcutaneous heparin but likely would need long-term oral anticoagulation like Eliquis after hip surgery 3. Troponin leak. Due to renal failure. No CP or SOB. 3. End-stage renal disease, on hemodialysis. Right femoral HD catheter needs to be removed before Hip surgery 4. 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 Total hip replacement by Dr Rogers pending. Stable from cardiac stand point. No further cardiac testing needed prior to surgery DW RN Subjective Subjective Remained in atrial fib. HR went was low as 44 Objective Last 24 Hour Vital Signs Date Time Temp Pulse Resp B/P (MAP) Pulse Ox O2 Delivery O2 Flow Rate FiO2 04/27/19 11:44 98.3 60 20 105/63 (77) 96 04/27/19 09:00 Room Air 04/27/19 08:45 58 94/57 04/27/19 08:28 97 Nasal Cannula 2.0 28 04/27/19 08:00 53 04/27/19 08:00 98.0 58 20 94/57 (69) 96 04/27/19 04:00 98.5 63 18 96/58 (71) 100 04/27/19 03:42 47 04/27/19 00:00 61 04/27/19 00:00 97.5 64 20 104/63 (77) 100 04/26/19 21:24 66 121/67 04/26/19 21:00 Room Air 04/26/19 20:00 98.2 66 18 121/67 (85) 100 04/26/19 20:00 62 04/26/19 19:14 61 18 98 Nasal Cannula 2.0 28 04/26/19 19:14 98 Nasal Cannula 2.0 28 04/26/19 16:00 61 04/26/19 16:00 98.2 68 23 117/43 (67) 98 Intake and Output 04/26/19 04/27/19 18:59 06:59 Intake Total 200 ml Output Total 50 ml Balance 150 ml Intake Oral 200 ml Output Urine Total 50 ml # Voids 1 # Bowel Movements 1 Laboratory Tests Test 04/27/19 07:25 White Blood Count 3.5 K/UL (4.8-10.8) L Red Blood Count 4.10 M/UL (4.70-6.10) L Hemoglobin 10.0 G/DL (14.2-18.0) L Hematocrit 32.6 % (42.0-52.0) L Mean Corpuscular Volume 80 FL (80-99) Mean Corpuscular Hemoglobin 24.3 PG (27.0-31.0) L Mean Corpuscular Hemoglobin Concent 30.5 G/DL (32.0-36.0) L Red Cell Distribution Width 19.4 % (11.6-14.8) H Platelet Count 81 K/UL (150-450) L Mean Platelet Volume 6.5 FL (6.5-10.1) Neutrophils (%) (Auto) % (45.0-75.0) Lymphocytes (%) (Auto) % (20.0-45.0) Monocytes (%) (Auto) % (1.0-10.0) Eosinophils (%) (Auto) % (0.0-3.0) Basophils (%) (Auto) % (0.0-2.0) Differential Total Cells Counted 100 Neutrophils % (Manual) 44 % (45-75) L Lymphocytes % (Manual) 34 % (20-45) Monocytes % (Manual) 15 % (1-10) H Eosinophils % (Manual) 7 % (0-3) H Basophils % (Manual) 0 % (0-2) Band Neutrophils 0 % (0-8) Platelet Estimate Decreased L Platelet Morphology Normal Hypochromasia 1+ Anisocytosis 1+ Sodium Level 137 MMOL/L (136-145) Potassium Level 4.5 MMOL/L (3.5-5.1) Chloride Level 97 MMOL/L (98-107) L Carbon Dioxide Level 23 MMOL/L (21-32) Anion Gap 17 mmol/L (5-15) H Blood Urea Nitrogen 93 mg/dL (7-18) H Creatinine 14.4 MG/DL (0.55-1.30) H Estimat Glomerular Filtration Rate 4.4 mL/min (>60) Glucose Level 90 MG/DL (74-106) Calcium Level 10.0 MG/DL (8.5-10.1) Phosphorus Level 12.8 MG/DL (2.5-4.9) H Magnesium Level 2.4 MG/DL (1.8-2.4) Objective HEAD AND NECK: No JVD. LUNGS: Decreased breath sounds. CARDIOVASCULAR: Irregular S1 and S2 with no murmur ABDOMEN: Soft. EXTREMITIES: Dialysis access in the right thigh. Heath Valencia MD Apr 27, 2019 12:08
--- NOTE | 2019-04-27 12:34 | Cardiology Report ---
APPROVED REPORT EKG Measurement Heart [id number] Atrial fibrillation Lateral infarct, age undetermined Abnormal ECG
--- NOTE | 2019-04-27 13:52 | NUR ---
NURSE NOTES: Dr. Rogers's office called for asking for plan's of the patient. Voice message left to medical assistance. Awaiting for reply.
--- NOTE | 2019-04-27 15:20 | NUR ---
NURSE NOTES: Called operation room to speak to Dr. Rogers. Message left to a scrub nurse for Dr. Rogers to remind him for patient Mr Sen.
[2019-04-27 15:56] VITALS: BP 114/56
--- NOTE | 2019-04-27 16:30 | NUR ---
NURSE NOTES: Per [facility] dialysis nurse, 2L of fluid removed from HD.
--- NOTE | 2019-04-27 16:53 | NUR ---
NURSE NOTES: Per Dr. Rogers, patient will not have a surgery at [facility], patient might need to bed transferred for higher level of care.
--- NOTE | 2019-04-27 17:41 | NUR ---
NURSE NOTES: Made Dr. Guillory aware for patient not having a surgery at this time
--- NOTE | 2019-04-27 17:47 | Internal Med Progress Note ---
Subjective Date of Service: Apr 27, 2019 Physician Name Fabricio Guillory Attending Physician Nabeel Hoff MD Current Medications Medications (Trade) Dose Ordered Sig/Anum Route PRN Reason Start Time Stop Time Status Last Admin Dose Admin Acetaminophen (Tylenol) 650 mg Q4H PRN ORAL Prn Headache/Temp > 101 04/24/19 13:00 05/24/19 12:59 Albuterol/ Ipratropium (Albuterol/ Ipratropium) 3 ml Q4H PRN HHN Shortness of Breath 04/23/19 23:15 04/28/19 23:14 Dextrose (Dextrose 50%) 25 ml Q30M PRN IV Hypoglycemia 04/23/19 23:15 05/23/19 23:14 Dextrose (Dextrose 50%) 50 ml Q30M PRN IV Hypoglycemia 04/23/19 23:15 05/23/19 23:14 Diphenhydramine HCl (Benadryl) 25 mg DAILYPRN PRN IVP Give with dialysis treatments 04/24/19 17:30 05/24/19 17:29 Docusate Sodium (Colace) 100 mg THREE TIMES A DAY ORAL 04/24/19 13:00 05/24/19 12:59 04/27/19 17:29 Gabapentin (Neurontin) 300 mg BID ORAL 04/24/19 18:00 05/24/19 17:59 04/27/19 17:29 Gadobutrol (Gadavist) 7.5 mmol NOW PRN IV Radiology Procedure 04/24/19 20:15 04/28/19 20:03 Hydralazine HCl (Apresoline) 10 mg Q4H PRN IV bp over 160 syst 04/24/19 13:00 05/24/19 12:59 Hydromorphone HCl (Dilaudid) 3 mg Q3H PRN IVP Severe Pain (Pain Scale 7-10) 04/25/19 19:15 05/02/19 19:14 04/27/19 17:29 Lactulose (Cephulac) 20 gm THREE TIMES A DAY ORAL 04/25/19 18:00 05/25/19 17:59 04/27/19 17:28 Lorazepam (Ativan 2mg/ml 1ml) 0.5 mg Q6H PRN IV For Seizures 04/24/19 17:30 05/01/19 17:29 04/26/19 14:20 Metoprolol Tartrate (Lopressor) 12.5 mg Q12HR ORAL 04/26/19 09:00 05/26/19 08:59 04/26/19 21:24 Ondansetron HCl (Zofran) 4 mg Q6H PRN IVP Nausea & Vomiting 04/23/19 23:15 05/23/19 23:14 Oxycodone HCl (Roxicodone) 30 mg Q6H PRN ORAL Moderate Pain (Pain Scale 4-6) 04/24/19 09:45 04/30/19 23:14 04/27/19 01:06 Pantoprazole (Protonix) 40 mg EVERY 12 HOURS ORAL 04/24/19 21:00 05/24/19 20:59 04/27/19 08:44 Patient Own Medication (Patient's Own Med) 1 ea BID ORAL 04/26/19 18:00 05/26/19 17:59 04/27/19 17:28 Patient Own Medication (Patient's Own Med) 1 ea DAILY ORAL 04/26/19 17:00 05/26/19 16:59 04/27/19 08:49 Patient Own Medication (Patient's Own Med) 1 ea DAILY ORAL 04/26/19 17:00 05/26/19 16:59 04/27/19 08:49 Polyethylene Glycol (Miralax) 17 gm DAILYPRN PRN ORAL Constipation 04/23/19 23:15 05/23/19 23:14 Pravastatin Sodium (Pravachol) 40 mg QHS ORAL 04/24/19 21:00 05/24/19 20:59 04/26/19 21:24 Sevelamer Carbonate (Renvela) 2,400 mg THREE TIMES A DAY ORAL 04/25/19 18:00 05/24/19 12:59 04/27/19 17:29 Temazepam (Restoril) 15 mg HSPRN PRN ORAL Insomnia 04/23/19 23:15 04/30/19 23:14 04/24/19 23:19 Allergies: Coded Allergies: FLUTICASONE (Unverified Allergy, Unknown, 02/23/17) LEVOFLOXACIN (Unverified Allergy, Unknown, 08/22/14) MORPHINE (Unverified Allergy, Unknown, 02/23/17) ROS Limited/Unobtainable: No Constitutional: Reports: no symptoms HEENT: Reports: no symptoms Cardiovascular: Reports: no symptoms Respiratory: Reports: no symptoms Gastrointestinal/Abdominal: Reports: no symptoms Genitourinary: Reports: no symptoms Neurologic/Psychiatric: Reports: no symptoms Subjective 53 YO M admitted with right hip pain. Now avascular necrosis right femoral head. Cover for [facility]-Dr Hoff. Await transfer to [facility] Objective Last Vital Signs Date Time Temp Pulse Resp B/P (MAP) Pulse Ox O2 Delivery O2 Flow Rate FiO2 04/27/19 16:00 61 04/27/19 15:56 98.1 20 114/56 (75) 96 04/27/19 09:00 Room Air 04/27/19 08:28 2.0 28 Laboratory Tests Test 04/27/19 07:25 White Blood Count 3.5 K/UL (4.8-10.8) L Red Blood Count 4.10 M/UL (4.70-6.10) L Hemoglobin 10.0 G/DL (14.2-18.0) L Hematocrit 32.6 % (42.0-52.0) L Mean Corpuscular Volume 80 FL (80-99) Mean Corpuscular Hemoglobin 24.3 PG (27.0-31.0) L Mean Corpuscular Hemoglobin Concent 30.5 G/DL (32.0-36.0) L Red Cell Distribution Width 19.4 % (11.6-14.8) H Platelet Count 81 K/UL (150-450) L Mean Platelet Volume 6.5 FL (6.5-10.1) Neutrophils (%) (Auto) % (45.0-75.0) Lymphocytes (%) (Auto) % (20.0-45.0) Monocytes (%) (Auto) % (1.0-10.0) Eosinophils (%) (Auto) % (0.0-3.0) Basophils (%) (Auto) % (0.0-2.0) Differential Total Cells Counted 100 Neutrophils % (Manual) 44 % (45-75) L Lymphocytes % (Manual) 34 % (20-45) Monocytes % (Manual) 15 % (1-10) H Eosinophils % (Manual) 7 % (0-3) H Basophils % (Manual) 0 % (0-2) Band Neutrophils 0 % (0-8) Platelet Estimate Decreased L Platelet Morphology Normal Hypochromasia 1+ Anisocytosis 1+ Sodium Level 137 MMOL/L (136-145) Potassium Level 4.5 MMOL/L (3.5-5.1) Chloride Level 97 MMOL/L (98-107) L Carbon Dioxide Level 23 MMOL/L (21-32) Anion Gap 17 mmol/L (5-15) H Blood Urea Nitrogen 93 mg/dL (7-18) H Creatinine 14.4 MG/DL (0.55-1.30) H Estimat Glomerular Filtration Rate 4.4 mL/min (>60) Glucose Level 90 MG/DL (74-106) Calcium Level 10.0 MG/DL (8.5-10.1) Phosphorus Level 12.8 MG/DL (2.5-4.9) H Magnesium Level 2.4 MG/DL (1.8-2.4) Intake and Output 04/26/19 04/27/19 18:59 06:59 Intake Total 200 ml Output Total 50 ml Balance 150 ml Intake Oral 200 ml Output Urine Total 50 ml # Voids 1 # Bowel Movements 1 Objective PHYSICAL EXAMINATION: GENERAL: The patient is well-developed and well-nourished male, in no apparent distress. HEENT: Eyes, pupils are equal and responsive to light and accommodation. Extraocular movements are intact. NECK: Supple. No lymphadenopathy. CHEST: Lungs are clear to auscultation bilaterally without wheezes or rales. CARDIOVASCULAR: Regular rhythm and rate. S1 and S2 normal without murmurs, rubs, or gallops. ABDOMEN: Soft, nontender, and nondistended. Positive bowel sounds. No evidence of hepatosplenomegaly. Currently, no rebound or guarding noted. EXTREMITIES: Negative for clubbing, cyanosis, or edema. RECTAL/GENITAL: Refused. NEUROLOGIC: Cranial nerves II through XII are grossly intact without focal deficits. Motor strength is 5/5 bilaterally. Deep tendon reflexes are 2+ plantar. Assessment/Plan Assessment/Plan ASSESSMENT: This is a 53-year-old, male. 1. ?Fracture of the right femoral head? 2. Avascular necrosis of the right femoral head. 3. Human immunodeficiency virus. 4. End-stage renal disease. 5. Atrial fibrillation. 6. Hypertension. 7. Coronary artery disease. 8. History of deep venous thrombosis. TREATMENT: 1.Avascular necrosis of the right femoral head. An Orthopedic consultation has been obtained with Dr. Mannie Rogers-see consult note. An MRI o fthe right hip inconclusive to confirm fracture. The patient has been cleared by cardiology for surgery-see note. 2. Human immunodeficiency virus. Continue HAART medications as above. 4. End-stage renal disease. Nephrology consultation obtained with Dr. Thomas. The patient is S/P dialysis on April 26, 2019. 5. Atrial fibrillation. A Cardiology consultation has been obtained with Dr. Heath Valencia. 6. Hypertension. Continue atenolol as above. 7. Coronary artery disease. As above, a Cardiology consultation has been obtained with Dr. Heath Valencia. 8. History of deep venous thrombosis. 9. Discussed with Ortho-Dr Rogers-right hip replacement too complicated- transfer to [facility] Fabricio Guillory MD Apr 27, 2019 17:47
--- NOTE | 2019-04-27 18:00 | Progress Note ---
DATE: 04/27/2019 SUBJECTIVE: The patient had MRI of the right hip. Moderate pain in the right hip, difficulty with activities of daily living. No other issues overnight. PHYSICAL EXAMINATION: EXTREMITIES: Examination shows irritable right hip. Posterior calf is soft. Neurovascular is normal. MRI of the right hip shows evidence of avascular necrosis. ASSESSMENT: Right hip avascular necrosis. DISCUSSION: At this point, I recommend is consideration for total hip arthroplasty and medically optimize. He is under the care of some surgeons at [facility]. I recommend to follow up with them to schedule elective total hip arthroplasty. Mannie Rogers M.D. DR: Nikki JOB#: [id number] CC:
[2019-04-27] MEDS ORDERED: ACYCLOVIR400 MG ORAL (18:37)
--- NOTE | 2019-04-27 19:23 | NUR ---
NURSE NOTES: Received patient from Min RN. Patient awake in bed, on room air, no s/s of respiratory distress. Bed in low position, locked, bed alarm on, call light within reach.
--- NOTE | 2019-04-27 19:41 | NUR ---
HAND-OFF: Report given to Hollis CAPPS. Pt remains stable.
[2019-04-27 20:15] VITALS: BP 108/62
--- NOTE | 2019-04-27 21:47 | NUR ---
NURSE NOTES: Patient coughed up blood. Notified Dr. Guillory and received orders for cxr and cbc stat.
[2019-04-27 22:09] LABS: HEMATOCRIT 35.8 % (42.0-52.0); MEAN CORPUSCULAR VOLUME 81 FL (80-99); PLATELET COUNT 103 K/UL (150-450); RED BLOOD COUNT 4.43 M/UL (4.70-6.10); RED CELL DISTRIBUTION WIDTH 18.6 % (11.6-14.8); WHITE BLOOD COUNT 3.4 K/UL (4.8-10.8)
--- NOTE | 2019-04-27 22:56 | Diagnostic Imaging Report ---
EXAM: XR Chest, 1 View CLINICAL HISTORY: BLD TECHNIQUE: Frontal view of the chest. COMPARISON: 07/03/2015 FINDINGS: Lungs: Pulmonary vascular congestion. Stable bilateral pulmonary hyperinflation. No consolidation. Pleural space: No significant pleural effusion or pneumothorax. Heart: Stable cardiomediastinal silhouette. Mediastinum: See above. Bones/joints: No acute osseous abnormality. Tubes, lines and devices: Right central venous catheter terminates near the cavoatrial junction. IMPRESSION: 1. Right central venous catheter terminates near the cavoatrial junction. No pneumothorax. 2. Pulmonary vascular congestion.
--- NOTE | 2019-04-27 23:50 | NUR ---
NURSE NOTES: CXR was negative, CBC within normal limits for patient, see lab and x ray results. No further bleeding observed. Will continue to monitor patient.
[2019-04-28] VITALS: BP 117/75
[2019-04-28] MEDS: oxyCODONE 15mg IR tab ORAL PRN (03:07)
[2019-04-28 04:00] VITALS: BP 105/65
--- NOTE | 2019-04-28 06:23 | Pulmonology Progress Note ---
Assessment/Plan Problems: (1) Hemoptysis (2) Fracture of head of right femur (3) Avascular necrosis of bone of hip (4) Atrial fibrillation (5) HIV (human immunodeficiency virus infection) (6) Hypertension (7) ESRD on hemodialysis (8) Anemia in chronic kidney disease (9) Seizure disorder (10) Coronary artery disease (11) Pancreatitis, chronic (12) Peripheral vascular disease Assessment/Plan CT of chest with contrast b/o hemoptysis HD today all reviewed BP more stable now pain management HD access site needs to be changed symptomatic treatment f/u troponin Subjective ROS Limited/Unobtainable: No Constitutional: Reports: no symptoms HEENT: Repors: no symptoms Respiratory: Reports: no symptoms Allergies: Coded Allergies: FLUTICASONE (Unverified Allergy, Unknown, 02/23/17) LEVOFLOXACIN (Unverified Allergy, Unknown, 08/22/14) MORPHINE (Unverified Allergy, Unknown, 02/23/17) Objective Last 24 Hour Vital Signs Date Time Temp Pulse Resp B/P (MAP) Pulse Ox O2 Delivery O2 Flow Rate FiO2 04/28/19 04:00 98.7 68 20 105/65 (78) 95 04/28/19 04:00 69 04/28/19 00:00 99.0 77 20 117/75 (89) 96 04/28/19 00:00 74 04/27/19 21:00 Room Air 04/27/19 21:00 75 108/62 04/27/19 20:15 98.6 75 20 108/62 (77) 100 04/27/19 20:00 95 Nasal Cannula 2.0 28 04/27/19 20:00 66 04/27/19 16:00 61 04/27/19 15:56 98.1 66 20 114/56 (75) 96 04/27/19 12:00 64 04/27/19 11:44 98.3 60 20 105/63 (77) 96 04/27/19 09:00 Room Air 04/27/19 08:45 58 94/57 04/27/19 08:28 97 Nasal Cannula 2.0 28 04/27/19 08:00 53 04/27/19 08:00 98.0 58 20 94/57 (69) 96 Intake and Output 04/27/19 04/28/19 19:00 07:00 Intake Total 1250 ml Balance 1250 ml Intake Oral 1250 ml # Bowel Movements 1 1 Objective MRI done, coughing up blood now HEENT: normocephalic, atraumatic Respiratory/Chest: chest wall non-tender, lungs clear Cardiovascular: normal peripheral pulses, normal rate Abdomen: normal bowel sounds, soft, non tender, no organomegaly Genitourinary: normal external genitalia Extremities: no cyanosis Skin: no rash Neurologic/Psychiatric: inside sales person II-XII grossly normal, no motor/sensory deficits Laboratory Tests 04/27/19 07:25: White Blood Count 3.5L, Red Blood Count 4.10L, Hemoglobin 10.0L, Hematocrit 32.6L, Mean Corpuscular Volume 80, Mean Corpuscular Hemoglobin 24.3L, Mean Corpuscular Hemoglobin Concent 30.5L, Red Cell Distribution Width 19.4H, Platelet Count 81L, Mean Platelet Volume 6.5, Neutrophils (%) (Auto) , Lymphocytes (%) (Auto) , Monocytes (%) (Auto) , Eosinophils (%) (Auto) , Basophils (%) (Auto) , Differential Total Cells Counted 100, Neutrophils % ( Manual) 44L, Lymphocytes % (Manual) 34, Monocytes % (Manual) 15H, Eosinophils % (Manual) 7H, Basophils % (Manual) 0, Band Neutrophils 0, Platelet Estimate DecreasedL, Platelet Morphology Normal, Hypochromasia 1+, Anisocytosis 1+, Sodium Level 137, Potassium Level 4.5, Chloride Level 97L, Carbon Dioxide Level 23, Anion Gap 17H, Blood Urea Nitrogen 93H, Creatinine 14.4H, Estimat Glomerular Filtration Rate 4.4, Glucose Level 90, Calcium Level 10.0, Phosphorus Level 12.8H, Magnesium Level 2.4 04/27/19 22:00: White Blood Count 3.4L, Red Blood Count 4.43L, Hemoglobin 11.0L, Hematocrit 35.8L, Mean Corpuscular Volume 81, Mean Corpuscular Hemoglobin 24.9L, Mean Corpuscular Hemoglobin Concent 30.8L, Red Cell Distribution Width 18.6H, Platelet Count 103L, Mean Platelet Volume 7.9, Neutrophils (%) (Auto) , Lymphocytes (%) (Auto) , Monocytes (%) (Auto) , Eosinophils (%) (Auto) , Basophils (%) (Auto) , Differential Total Cells Counted 100, Neutrophils % ( Manual) 54, Lymphocytes % (Manual) 21, Monocytes % (Manual) 16H, Eosinophils % ( Manual) 8H, Basophils % (Manual) 1, Band Neutrophils 0, Platelet Estimate DecreasedL, Platelet Morphology Normal, Hypochromasia 1+, Anisocytosis 2+ Current Medications Medications (Trade) Dose Ordered Sig/Anum Route PRN Reason Start Time Stop Time Status Last Admin Dose Admin Acetaminophen (Tylenol) 650 mg Q4H PRN ORAL Prn Headache/Temp > 101 04/24/19 13:00 05/24/19 12:59 Albuterol/ Ipratropium (Albuterol/ Ipratropium) 3 ml Q4H PRN HHN Shortness of Breath 04/23/19 23:15 04/28/19 23:14 Dextrose (Dextrose 50%) 25 ml Q30M PRN IV Hypoglycemia 04/23/19 23:15 05/23/19 23:14 Dextrose (Dextrose 50%) 50 ml Q30M PRN IV Hypoglycemia 04/23/19 23:15 05/23/19 23:14 Diphenhydramine HCl (Benadryl) 25 mg DAILYPRN PRN IVP Give with dialysis treatments 04/24/19 17:30 05/24/19 17:29 Docusate Sodium (Colace) 100 mg THREE TIMES A DAY ORAL 04/24/19 13:00 05/24/19 12:59 04/27/19 17:29 Gabapentin (Neurontin) 300 mg BID ORAL 04/24/19 18:00 05/24/19 17:59 04/27/19 17:29 Gadobutrol (Gadavist) 7.5 mmol NOW PRN IV Radiology Procedure 04/24/19 20:15 04/28/19 20:03 Hydralazine HCl (Apresoline) 10 mg Q4H PRN IV bp over 160 syst 04/24/19 13:00 05/24/19 12:59 Hydromorphone HCl (Dilaudid) 3 mg Q3H PRN IVP Severe Pain (Pain Scale 7-10) 04/25/19 19:15 05/02/19 19:14 04/28/19 04:26 Lactulose (Cephulac) 20 gm THREE TIMES A DAY ORAL 04/25/19 18:00 05/25/19 17:59 04/27/19 17:28 Lorazepam (Ativan 2mg/ml 1ml) 0.5 mg Q6H PRN IV For Seizures 04/24/19 17:30 05/01/19 17:29 04/26/19 14:20 Metoprolol Tartrate (Lopressor) 12.5 mg Q12HR ORAL 04/26/19 09:00 05/26/19 08:59 04/26/19 21:24 Ondansetron HCl (Zofran) 4 mg Q6H PRN IVP Nausea & Vomiting 04/23/19 23:15 05/23/19 23:14 Oxycodone HCl (Roxicodone) 30 mg Q6H PRN ORAL Moderate Pain (Pain Scale 4-6) 04/24/19 09:45 04/30/19 23:14 04/28/19 03:07 Pantoprazole (Protonix) 40 mg EVERY 12 HOURS ORAL 04/24/19 21:00 05/24/19 20:59 04/27/19 21:08 Patient Own Medication (Patient's Own Med) 1 ea BID ORAL 04/26/19 18:00 05/26/19 17:59 04/27/19 17:28 Patient Own Medication (Patient's Own Med) 1 ea DAILY ORAL 04/26/19 17:00 05/26/19 16:59 04/27/19 08:49 Patient Own Medication (Patient's Own Med) 1 ea DAILY ORAL 04/26/19 17:00 05/26/19 16:59 04/27/19 08:49 Polyethylene Glycol (Miralax) 17 gm DAILYPRN PRN ORAL Constipation 04/23/19 23:15 05/23/19 23:14 Pravastatin Sodium (Pravachol) 40 mg QHS ORAL 04/24/19 21:00 05/24/19 20:59 04/27/19 21:08 Sevelamer Carbonate (Renvela) 2,400 mg THREE TIMES A DAY ORAL 04/25/19 18:00 05/24/19 12:59 04/27/19 17:29 Temazepam (Restoril) 15 mg HSPRN PRN ORAL Insomnia 04/23/19 23:15 04/30/19 23:14 04/24/19 23:19 Srinivasan Patterson MD Apr 28, 2019 06:23
[2019-04-28] MEDS ORDERED: Isovue-300 100ml vial INJ PRN (06:30)
[2019-04-28 06:57] LABS: HEMATOCRIT 34.4 % (42.0-52.0); HEMOGLOBIN 10.4 G/DL (14.2-18.0); MEAN CORPUSCULAR VOLUME 81 FL (80-99); PLATELET COUNT 93 K/UL (150-450); RED BLOOD COUNT 4.22 M/UL (4.70-6.10); RED CELL DISTRIBUTION WIDTH 19.4 % (11.6-14.8); WHITE BLOOD COUNT 3.3 K/UL (4.8-10.8)
--- NOTE | 2019-04-28 06:58 | NUR ---
NURSE NOTES: Received orders from Dr. Patterson for CT with contrast. Informed him that patient is a dialysis patient and if he can have contrast. Dr. Patterson said yes. Obtained consent from patient for contrast.
--- NOTE | 2019-04-28 07:12 | NUR ---
HAND-OFF: Report given to Kimberly Monae. Plan of care endorsed.
--- NOTE | 2019-04-28 07:13 | NUR ---
NURSE NOTES: Received report from JEFRY Shafer. Pt is sitting up in bed. Pt stated that he is very thankful for the care he has received. Mid conversation, patient fell asleep and did not continue with conversation. Bed is in lowest position, side rails up X2, and call light is within reach. Will continue to monitor.
[2019-04-28 07:15] LABS: ANION GAP 12 mmol/L (5-15); BLOOD UREA NITROGEN 64 mg/dL (7-18); CALCIUM 9.8 MG/DL (8.5-10.1); CARBON DIOXIDE 27 MMOL/L (21-32); CHLORIDE 96 MMOL/L (98-107); CREATININE 11.2 MG/DL (0.55-1.30); POTASSIUM 4.3 MMOL/L (3.5-5.1); SODIUM 135 MMOL/L (136-145)
[2019-04-28 08:00] VITALS: BP 107/89
[2019-04-28] MEDS: Metoprolol Tartrate 12.5mg TAB ORAL SCH ×2 (09:00→20:44)
[2019-04-28] MEDS: Lactulose 20gm/30ml UDC ORAL SCH ×3 (09:01→17:16)
[2019-04-28] MEDS: Patient's Own Med - Ritonavir 100mg ORAL SCH (09:01)
[2019-04-28] MEDS: Docusate 100mg cap ORAL SCH ×3 (09:01→17:16)
--- NOTE | 2019-04-28 09:24 | Cardiology Progress Note ---
Assessment/Plan Status: stable Assessment/Plan Assessment/Plan Assessment/Plan 1. Nonsustained ventricular tachycardia. Could be atrial fib with aberrancy. S/ P hemodialysis. EF 45-50%. No recurrence 2. Atrial fibrillation with bradycardia Decreased metoprolol to 12.5 bid On subcutaneous heparin but likely would need long-term oral anticoagulation like Eliquis after hip surgery 3. Troponin leak. Due to renal failure. No CP or SOB. Follow troponin prn 3. End-stage renal disease, on hemodialysis. Right femoral HD catheter needs to be removed before Hip surgery 4. 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 Total hip replacement by Dr Rogers pendinder. 5. Hypertension - controlled Subjective Cardiovascular: Reports: no symptoms Respiratory: Reports: no symptoms Gastrointestinal/Abdominal: Reports: no symptoms Genitourinary: Reports: no symptoms Subjective coverage for [place] no acute events, no complaints, vitals stable Objective Last 24 Hour Vital Signs Date Time Temp Pulse Resp B/P (MAP) Pulse Ox O2 Delivery O2 Flow Rate FiO2 04/28/19 04:00 98.7 68 20 105/65 (78) 95 04/28/19 04:00 69 04/28/19 00:00 99.0 77 20 117/75 (89) 96 04/28/19 00:00 74 04/27/19 21:00 Room Air 04/27/19 21:00 75 108/62 04/27/19 20:15 98.6 75 20 108/62 (77) 100 04/27/19 20:00 95 Nasal Cannula 2.0 28 04/27/19 20:00 66 04/27/19 16:00 61 04/27/19 15:56 98.1 66 20 114/56 (75) 96 04/27/19 12:00 64 04/27/19 11:44 98.3 60 20 105/63 (77) 96 General Appearance: no apparent distress, alert EENT: PERRL/EOMI, normal ENT inspection, TMs normal Neck: non-tender, normal alignment, supple, normal inspection, no JVD Rhythm: NSR Cardiovascular: normal peripheral pulses, normal rate, regular rhythm Respiratory/Chest: chest wall non-tender, lungs clear, normal breath sounds Abdomen: normal bowel sounds, non tender, soft, no organomegaly, no mass Extremities: normal range of motion, non-tender, normal inspection, no calf tenderness Neurologic: patient safety sitter II-XII grossly normal, no motor/sensory deficits Intake and Output 04/27/19 04/28/19 19:00 07:00 Intake Total 1250 ml 320 ml Balance 1250 ml 320 ml Intake Oral 1250 ml 320 ml # Bowel Movements 1 1 Laboratory Tests Test 04/27/19 22:00 04/28/19 05:50 White Blood Count 3.4 K/UL (4.8-10.8) L 3.3 K/UL (4.8-10.8) L Red Blood Count 4.43 M/UL (4.70-6.10) L 4.22 M/UL (4.70-6.10) L Hemoglobin 11.0 G/DL (14.2-18.0) L 10.4 G/DL (14.2-18.0) L Hematocrit 35.8 % (42.0-52.0) L 34.4 % (42.0-52.0) L Mean Corpuscular Volume 81 FL (80-99) 81 FL (80-99) Mean Corpuscular Hemoglobin 24.9 PG (27.0-31.0) L 24.5 PG (27.0-31.0) L Mean Corpuscular Hemoglobin Concent 30.8 G/DL (32.0-36.0) L 30.1 G/DL (32.0-36.0) L Red Cell Distribution Width 18.6 % (11.6-14.8) H 19.4 % (11.6-14.8) H Platelet Count 103 K/UL (150-450) L 93 K/UL (150-450) L Mean Platelet Volume 7.9 FL (6.5-10.1) 6.9 FL (6.5-10.1) Neutrophils (%) (Auto) % (45.0-75.0) % (45.0-75.0) Lymphocytes (%) (Auto) % (20.0-45.0) % (20.0-45.0) Monocytes (%) (Auto) % (1.0-10.0) % (1.0-10.0) Eosinophils (%) (Auto) % (0.0-3.0) % (0.0-3.0) Basophils (%) (Auto) % (0.0-2.0) % (0.0-2.0) Differential Total Cells Counted 100 100 Neutrophils % (Manual) 54 % (45-75) 46 % (45-75) Lymphocytes % (Manual) 21 % (20-45) 38 % (20-45) Monocytes % (Manual) 16 % (1-10) H 13 % (1-10) H Eosinophils % (Manual) 8 % (0-3) H 3 % (0-3) Basophils % (Manual) 1 % (0-2) 0 % (0-2) Band Neutrophils 0 % (0-8) 0 % (0-8) Platelet Estimate Decreased L Decreased L Platelet Morphology Normal Normal Hypochromasia 1+ 1+ Anisocytosis 2+ 2+ Sodium Level 135 MMOL/L (136-145) L Potassium Level 4.3 MMOL/L (3.5-5.1) Chloride Level 96 MMOL/L (98-107) L Carbon Dioxide Level 27 MMOL/L (21-32) Anion Gap 12 mmol/L (5-15) Blood Urea Nitrogen 64 mg/dL (7-18) H Creatinine 11.2 MG/DL (0.55-1.30) H Estimat Glomerular Filtration Rate 5.8 mL/min (>60) Glucose Level 101 MG/DL (74-106) Calcium Level 9.8 MG/DL (8.5-10.1) Phosphorus Level Pending Magnesium Level Pending Total Bilirubin Pending Direct Bilirubin Pending Aspartate Amino Transf (AST/SGOT) Pending Alanine Aminotransferase (ALT/SGPT) Pending Alkaline Phosphatase Pending Total Protein Pending Albumin Pending Hal Jin MD Apr 28, 2019 09:24
[2019-04-28 09:46] LABS: ALANINE AMINOTRANSFERASE 27 U/L (12-78); ALBUMIN 2.6 G/DL (3.4-5.0); ALKALINE PHOSPHATASE 66 U/L (46-116); ASPARTATE AMINO TRANSFERASE 44 U/L (15-37); BILIRUBIN,DIRECT 0.2 MG/DL (0.0-0.3); BILIRUBIN,TOTAL 0.6 MG/DL (0.2-1.0); PHOSPHORUS 8.7 MG/DL (2.5-4.9)
--- NOTE | 2019-04-28 10:48 | Nephrology Progress Note ---
Assessment/Plan Problem List: (1) ESRD on hemodialysis (2) Peripheral vascular disease (3) HIV (human immunodeficiency virus infection) (4) Coronary artery disease (5) Atrial fibrillation Assessment Right Hip Fx- Renal Osteo Dystrophy ESRD, High K of 6.2 HTN of CKD Asthma At Fib CAD PVD HIV Disease Sz disorder Plan Plan: HD next 04/29- BP control pain management phos binders lactulose ortho eval per orders Subjective ROS Limited/Unobtainable: No Constitutional: Reports: malaise Objective Objective Last 24 Hour Vital Signs Date Time Temp Pulse Resp B/P (MAP) Pulse Ox O2 Delivery O2 Flow Rate FiO2 04/28/19 04:00 98.7 68 20 105/65 (78) 95 04/28/19 04:00 69 04/28/19 00:00 99.0 77 20 117/75 (89) 96 04/28/19 00:00 74 04/27/19 21:00 Room Air 04/27/19 21:00 75 108/62 04/27/19 20:15 98.6 75 20 108/62 (77) 100 04/27/19 20:00 95 Nasal Cannula 2.0 28 04/27/19 20:00 66 04/27/19 16:00 61 04/27/19 15:56 98.1 66 20 114/56 (75) 96 04/27/19 12:00 64 04/27/19 11:44 98.3 60 20 105/63 (77) 96 Intake and Output 04/27/19 04/28/19 19:00 07:00 Intake Total 1250 ml 320 ml Balance 1250 ml 320 ml Intake Oral 1250 ml 320 ml # Bowel Movements 1 1 Laboratory Tests 04/27/19 22:00: White Blood Count 3.4L, Red Blood Count 4.43L, Hemoglobin 11.0L, Hematocrit 35.8L, Mean Corpuscular Volume 81, Mean Corpuscular Hemoglobin 24.9L, Mean Corpuscular Hemoglobin Concent 30.8L, Red Cell Distribution Width 18.6H, Platelet Count 103L, Mean Platelet Volume 7.9, Neutrophils (%) (Auto) , Lymphocytes (%) (Auto) , Monocytes (%) (Auto) , Eosinophils (%) (Auto) , Basophils (%) (Auto) , Differential Total Cells Counted 100, Neutrophils % ( Manual) 54, Lymphocytes % (Manual) 21, Monocytes % (Manual) 16H, Eosinophils % ( Manual) 8H, Basophils % (Manual) 1, Band Neutrophils 0, Platelet Estimate DecreasedL, Platelet Morphology Normal, Hypochromasia 1+, Anisocytosis 2+ 04/28/19 05:50: White Blood Count 3.3L, Red Blood Count 4.22L, Hemoglobin 10.4L, Hematocrit 34.4L, Mean Corpuscular Volume 81, Mean Corpuscular Hemoglobin 24.5L, Mean Corpuscular Hemoglobin Concent 30.1L, Red Cell Distribution Width 19.4H, Platelet Count 93L, Mean Platelet Volume 6.9, Neutrophils (%) (Auto) , Lymphocytes (%) (Auto) , Monocytes (%) (Auto) , Eosinophils (%) (Auto) , Basophils (%) (Auto) , Differential Total Cells Counted 100, Neutrophils % ( Manual) 46, Lymphocytes % (Manual) 38, Monocytes % (Manual) 13H, Eosinophils % ( Manual) 3, Basophils % (Manual) 0, Band Neutrophils 0, Platelet Estimate DecreasedL, Platelet Morphology Normal, Hypochromasia 1+, Anisocytosis 2+, Sodium Level 135L, Potassium Level 4.3, Chloride Level 96L, Carbon Dioxide Level 27, Anion Gap 12, Blood Urea Nitrogen 64H, Creatinine 11.2H, Estimat Glomerular Filtration Rate 5.8, Glucose Level 101, Calcium Level 9.8, Phosphorus Level 8.7H, Magnesium Level 2.1, Total Bilirubin 0.6, Direct Bilirubin 0.2, Aspartate Amino Transf (AST/SGOT) 44H, Alanine Aminotransferase ( ALT/SGPT) 27, Alkaline Phosphatase 66, Total Protein 7.7, Albumin 2.6L Height (Feet): 6 Height (Inches): 3.00 Weight (Pounds): 190 General Appearance: no apparent distress Cardiovascular: regular rhythm Respiratory/Chest: lungs clear Abdomen: soft Objective no change Perfecto Thomas MD Apr 28, 2019 10:48
[2019-04-28 12:00] VITALS: BP 106/67
--- NOTE | 2019-04-28 12:01 | Infectious Diseases Prog Note ---
Assessment/Plan Assessment/Plan Assessment: R femoral avascular necrosis -MRI HIp: AVN of the right hip with subchondral signal abnormality. The study is significantly degraded by motion. -CT hip: Evidence of avascular necrosis of the right hip with subchondral fractures and moderate arthrosis. Renal osteodystrophy. Other findings as above Afebrile Pancytopenia HIV dx 1994- on ARV -03/2019: CD4 226 (28.1%), VL p -12/2017: VL 460; CD4 133 (2014) HLD Asthma HTN GERD CAD PVD -s/p L 3rd and 4th toe amputation chronic L 2nd toe OM s/p tx 12/2017 hx pericardial effusion ESRD on HD TTSat w/ thrombose R upper arm AV graft, on kidney transplant list Seizure disorder syncope s/p cholecystectomy s/p appendectomy s/p lumbar laminectomy, Plan: -Continue to monitor off systemic antibiotics -Continue ARV: Prezista, Norvir, Isentress -f/u cx -Monitor CBC/CMP, temperatures -Ortho f/u- recommends elective R THR -f/uHIV VL Thank you for this consultation. Will continue to follow along with you. Discussed with RN. Subjective Allergies: Coded Allergies: FLUTICASONE (Unverified Allergy, Unknown, 02/23/17) LEVOFLOXACIN (Unverified Allergy, Unknown, 08/22/14) MORPHINE (Unverified Allergy, Unknown, 02/23/17) Subjective afebrile no leukocytosis Objective Vital Signs Last 24 Hour Vital Signs Date Time Temp Pulse Resp B/P (MAP) Pulse Ox O2 Delivery O2 Flow Rate FiO2 04/28/19 09:00 Room Air 04/28/19 08:00 99.2 60 18 107/89 (95) 97 04/28/19 04:00 98.7 68 20 105/65 (78) 95 04/28/19 04:00 69 04/28/19 00:00 99.0 77 20 117/75 (89) 96 04/28/19 00:00 74 04/27/19 21:00 Room Air 04/27/19 21:00 75 108/62 04/27/19 20:15 98.6 75 20 108/62 (77) 100 04/27/19 20:00 95 Nasal Cannula 2.0 28 04/27/19 20:00 66 6/28/19 16:00 61 04/27/19 15:56 98.1 66 20 114/56 (75) 96 04/27/19 12:00 64 Height (Feet): 6 Height (Inches): 3.00 Weight (Pounds): 195 Objective GENERAL: The patient is well-developed and well-nourished male, in no apparent distress. HEENT: Eyes, pupils are equal and responsive to light and accommodation. Extraocular movements are intact. NECK: Supple. No lymphadenopathy. CHEST: Lungs are clear to auscultation bilaterally without wheezes or rales. CARDIOVASCULAR: Regular rhythm and rate. S1 and S2 normal without murmurs, rubs, or gallops. ABDOMEN: Soft, nontender, and nondistended. Positive bowel sounds. No evidence of hepatosplenomegaly. Currently, no rebound or guarding noted. EXTREMITIES: Negative for clubbing, cyanosis, or edema. NEUROLOGIC: Cranial nerves II through XII are grossly intact without focal deficits. Motor strength is 5/5 bilaterally. Deep tendon reflexes are 2+ plantar Laboratory Tests Test 04/27/19 22:00 04/28/19 05:50 White Blood Count 3.4 K/UL (4.8-10.8) L 3.3 K/UL (4.8-10.8) L Red Blood Count 4.43 M/UL (4.70-6.10) L 4.22 M/UL (4.70-6.10) L Hemoglobin 11.0 G/DL (14.2-18.0) L 10.4 G/DL (14.2-18.0) L Hematocrit 35.8 % (42.0-52.0) L 34.4 % (42.0-52.0) L Mean Corpuscular Volume 81 FL (80-99) 81 FL (80-99) Mean Corpuscular Hemoglobin 24.9 PG (27.0-31.0) L 24.5 PG (27.0-31.0) L Mean Corpuscular Hemoglobin Concent 30.8 G/DL (32.0-36.0) L 30.1 G/DL (32.0-36.0) L Red Cell Distribution Width 18.6 % (11.6-14.8) H 19.4 % (11.6-14.8) H Platelet Count 103 K/UL (150-450) L 93 K/UL (150-450) L Mean Platelet Volume 7.9 FL (6.5-10.1) 6.9 FL (6.5-10.1) Neutrophils (%) (Auto) % (45.0-75.0) % (45.0-75.0) Lymphocytes (%) (Auto) % (20.0-45.0) % (20.0-45.0) Monocytes (%) (Auto) % (1.0-10.0) % (1.0-10.0) Eosinophils (%) (Auto) % (0.0-3.0) % (0.0-3.0) Basophils (%) (Auto) % (0.0-2.0) % (0.0-2.0) Differential Total Cells Counted 100 100 Neutrophils % (Manual) 54 % (45-75) 46 % (45-75) Lymphocytes % (Manual) 21 % (20-45) 38 % (20-45) Monocytes % (Manual) 16 % (1-10) H 13 % (1-10) H Eosinophils % (Manual) 8 % (0-3) H 3 % (0-3) Basophils % (Manual) 1 % (0-2) 0 % (0-2) Band Neutrophils 0 % (0-8) 0 % (0-8) Platelet Estimate Decreased L Decreased L Platelet Morphology Normal Normal Hypochromasia 1+ 1+ Anisocytosis 2+ 2+ Sodium Level 135 MMOL/L (136-145) L Potassium Level 4.3 MMOL/L (3.5-5.1) Chloride Level 96 MMOL/L (98-107) L Carbon Dioxide Level 27 MMOL/L (21-32) Anion Gap 12 mmol/L (5-15) Blood Urea Nitrogen 64 mg/dL (7-18) H Creatinine 11.2 MG/DL (0.55-1.30) H Estimat Glomerular Filtration Rate 5.8 mL/min (>60) Glucose Level 101 MG/DL (74-106) Calcium Level 9.8 MG/DL (8.5-10.1) Phosphorus Level 8.7 MG/DL (2.5-4.9) H Magnesium Level 2.1 MG/DL (1.8-2.4) Total Bilirubin 0.6 MG/DL (0.2-1.0) Direct Bilirubin 0.2 MG/DL (0.0-0.3) Aspartate Amino Transf (AST/SGOT) 44 U/L (15-37) H Alanine Aminotransferase (ALT/SGPT) 27 U/L (12-78) Alkaline Phosphatase 66 U/L (46-116) Total Protein 7.7 G/DL (6.4-8.2) Albumin 2.6 G/DL (3.4-5.0) L Current Medications Medications (Trade) Dose Ordered Sig/Anum Route PRN Reason Start Time Stop Time Status Last Admin Dose Admin Acetaminophen (Tylenol) 650 mg Q4H PRN ORAL Prn Headache/Temp > 101 04/24/19 13:00 05/24/19 12:59 Albuterol/ Ipratropium (Albuterol/ Ipratropium) 3 ml Q4H PRN HHN Shortness of Breath 04/23/19 23:15 04/28/19 23:14 Dextrose (Dextrose 50%) 25 ml Q30M PRN IV Hypoglycemia 04/23/19 23:15 05/23/19 23:14 Dextrose (Dextrose 50%) 50 ml Q30M PRN IV Hypoglycemia 04/23/19 23:15 05/23/19 23:14 Diphenhydramine HCl (Benadryl) 25 mg DAILYPRN PRN IVP Give with dialysis treatments 04/24/19 17:30 05/24/19 17:29 Docusate Sodium (Colace) 100 mg THREE TIMES A DAY ORAL 04/24/19 13:00 05/24/19 12:59 04/28/19 09:01 Gabapentin (Neurontin) 300 mg BID ORAL 04/24/19 18:00 05/24/19 17:59 04/28/19 09:02 Gadobutrol (Gadavist) 7.5 mmol NOW PRN IV Radiology Procedure 04/24/19 20:15 04/28/19 20:03 Hydralazine HCl (Apresoline) 10 mg Q4H PRN IV bp over 160 syst 04/24/19 13:00 05/24/19 12:59 Hydromorphone HCl (Dilaudid) 3 mg Q3H PRN IVP Severe Pain (Pain Scale 7-10) 04/25/19 19:15 05/02/19 19:14 04/28/19 09:02 Iopamidol (Isovue-300 100ml) 100 ml NOW PRN INJ Radiology Procedure 04/28/19 06:30 04/30/19 06:19 Lactulose (Cephulac) 20 gm THREE TIMES A DAY ORAL 04/25/19 18:00 05/25/19 17:59 04/28/19 09:01 Lorazepam (Ativan 2mg/ml 1ml) 0.5 mg Q6H PRN IV For Seizures 04/24/19 17:30 05/01/19 17:29 04/26/19 14:20 Metoprolol Tartrate (Lopressor) 12.5 mg Q12HR ORAL 04/26/19 09:00 05/26/19 08:59 04/26/19 21:24 Ondansetron HCl (Zofran) 4 mg Q6H PRN IVP Nausea & Vomiting 04/23/19 23:15 05/23/19 23:14 Oxycodone HCl (Roxicodone) 30 mg Q6H PRN ORAL Moderate Pain (Pain Scale 4-6) 04/24/19 09:45 04/30/19 23:14 04/28/19 03:07 Pantoprazole (Protonix) 40 mg EVERY 12 HOURS ORAL 04/24/19 21:00 05/24/19 20:59 04/28/19 09:01 Patient Own Medication (Patient's Own Med) 1 ea BID ORAL 04/26/19 18:00 05/26/19 17:59 04/28/19 09:00 Patient Own Medication (Patient's Own Med) 1 ea DAILY ORAL 04/26/19 17:00 05/26/19 16:59 04/28/19 09:00 Patient Own Medication (Patient's Own Med) 1 ea DAILY ORAL 04/26/19 17:00 05/26/19 16:59 04/28/19 09:01 Polyethylene Glycol (Miralax) 17 gm DAILYPRN PRN ORAL Constipation 04/23/19 23:15 05/23/19 23:14 Pravastatin Sodium (Pravachol) 40 mg QHS ORAL 04/24/19 21:00 05/24/19 20:59 04/27/19 21:08 Sevelamer Carbonate (Renvela) 2,400 mg THREE TIMES A DAY ORAL 04/25/19 18:00 05/24/19 12:59 04/28/19 09:01 Temazepam (Restoril) 15 mg HSPRN PRN ORAL Insomnia 04/23/19 23:15 04/30/19 23:14 04/24/19 23:19 Sari Duncan M.D. Apr 28, 2019 12:01
--- NOTE | 2019-04-28 13:07 | Internal Med Progress Note ---
Subjective Date of Service: Apr 28, 2019 Physician Name Fabricio Guillory Attending Physician Nabeel Hoff MD Current Medications Medications (Trade) Dose Ordered Sig/Anum Route PRN Reason Start Time Stop Time Status Last Admin Dose Admin Acetaminophen (Tylenol) 650 mg Q4H PRN ORAL Prn Headache/Temp > 101 04/24/19 13:00 05/24/19 12:59 Albuterol/ Ipratropium (Albuterol/ Ipratropium) 3 ml Q4H PRN HHN Shortness of Breath 04/23/19 23:15 04/28/19 23:14 Dextrose (Dextrose 50%) 25 ml Q30M PRN IV Hypoglycemia 04/23/19 23:15 05/23/19 23:14 Dextrose (Dextrose 50%) 50 ml Q30M PRN IV Hypoglycemia 04/23/19 23:15 05/23/19 23:14 Diphenhydramine HCl (Benadryl) 25 mg DAILYPRN PRN IVP Give with dialysis treatments 04/24/19 17:30 05/24/19 17:29 Docusate Sodium (Colace) 100 mg THREE TIMES A DAY ORAL 04/24/19 13:00 05/24/19 12:59 04/28/19 12:22 Gabapentin (Neurontin) 300 mg BID ORAL 04/24/19 18:00 05/24/19 17:59 04/28/19 09:02 Gadobutrol (Gadavist) 7.5 mmol NOW PRN IV Radiology Procedure 04/24/19 20:15 04/28/19 20:03 Hydralazine HCl (Apresoline) 10 mg Q4H PRN IV bp over 160 syst 04/24/19 13:00 05/24/19 12:59 Hydromorphone HCl (Dilaudid) 3 mg Q3H PRN IVP Severe Pain (Pain Scale 7-10) 04/25/19 19:15 05/02/19 19:14 04/28/19 12:22 Iopamidol (Isovue-300 100ml) 100 ml NOW PRN INJ Radiology Procedure 04/28/19 06:30 04/30/19 06:19 Lactulose (Cephulac) 20 gm THREE TIMES A DAY ORAL 04/25/19 18:00 05/25/19 17:59 04/28/19 12:22 Lorazepam (Ativan 2mg/ml 1ml) 0.5 mg Q6H PRN IV For Seizures 04/24/19 17:30 05/01/19 17:29 04/26/19 14:20 Metoprolol Tartrate (Lopressor) 12.5 mg Q12HR ORAL 04/26/19 09:00 05/26/19 08:59 04/26/19 21:24 Ondansetron HCl (Zofran) 4 mg Q6H PRN IVP Nausea & Vomiting 04/23/19 23:15 05/23/19 23:14 Oxycodone HCl (Roxicodone) 30 mg Q6H PRN ORAL Moderate Pain (Pain Scale 4-6) 04/24/19 09:45 04/30/19 23:14 04/28/19 03:07 Pantoprazole (Protonix) 40 mg EVERY 12 HOURS ORAL 04/24/19 21:00 05/24/19 20:59 04/28/19 09:01 Patient Own Medication (Patient's Own Med) 1 ea BID ORAL 04/26/19 18:00 05/26/19 17:59 04/28/19 09:00 Patient Own Medication (Patient's Own Med) 1 ea DAILY ORAL 04/26/19 17:00 05/26/19 16:59 04/28/19 09:00 Patient Own Medication (Patient's Own Med) 1 ea DAILY ORAL 04/26/19 17:00 05/26/19 16:59 04/28/19 09:01 Polyethylene Glycol (Miralax) 17 gm DAILYPRN PRN ORAL Constipation 04/23/19 23:15 05/23/19 23:14 Pravastatin Sodium (Pravachol) 40 mg QHS ORAL 04/24/19 21:00 05/24/19 20:59 04/27/19 21:08 Sevelamer Carbonate (Renvela) 2,400 mg THREE TIMES A DAY ORAL 04/25/19 18:00 05/24/19 12:59 04/28/19 12:22 Temazepam (Restoril) 15 mg HSPRN PRN ORAL Insomnia 04/23/19 23:15 04/30/19 23:14 04/24/19 23:19 Allergies: Coded Allergies: FLUTICASONE (Unverified Allergy, Unknown, 02/23/17) LEVOFLOXACIN (Unverified Allergy, Unknown, 08/22/14) MORPHINE (Unverified Allergy, Unknown, 02/23/17) ROS Limited/Unobtainable: No Constitutional: Reports: no symptoms HEENT: Reports: no symptoms Cardiovascular: Reports: no symptoms Respiratory: Reports: no symptoms Gastrointestinal/Abdominal: Reports: no symptoms Genitourinary: Reports: no symptoms Neurologic/Psychiatric: Reports: no symptoms Subjective 53 YO M admitted with right hip pain. Now avascular necrosis right femoral head. Cover for [facility] Med-Dr Hoff. Await transfer to [facility] Objective Last Vital Signs Date Time Temp Pulse Resp B/P (MAP) Pulse Ox O2 Delivery O2 Flow Rate FiO2 04/28/19 09:00 Room Air 04/28/19 08:00 99.2 60 18 107/89 (95) 97 04/27/19 20:00 2.0 28 Laboratory Tests Test 04/27/19 22:00 04/28/19 05:50 White Blood Count 3.4 K/UL (4.8-10.8) L 3.3 K/UL (4.8-10.8) L Red Blood Count 4.43 M/UL (4.70-6.10) L 4.22 M/UL (4.70-6.10) L Hemoglobin 11.0 G/DL (14.2-18.0) L 10.4 G/DL (14.2-18.0) L Hematocrit 35.8 % (42.0-52.0) L 34.4 % (42.0-52.0) L Mean Corpuscular Volume 81 FL (80-99) 81 FL (80-99) Mean Corpuscular Hemoglobin 24.9 PG (27.0-31.0) L 24.5 PG (27.0-31.0) L Mean Corpuscular Hemoglobin Concent 30.8 G/DL (32.0-36.0) L 30.1 G/DL (32.0-36.0) L Red Cell Distribution Width 18.6 % (11.6-14.8) H 19.4 % (11.6-14.8) H Platelet Count 103 K/UL (150-450) L 93 K/UL (150-450) L Mean Platelet Volume 7.9 FL (6.5-10.1) 6.9 FL (6.5-10.1) Neutrophils (%) (Auto) % (45.0-75.0) % (45.0-75.0) Lymphocytes (%) (Auto) % (20.0-45.0) % (20.0-45.0) Monocytes (%) (Auto) % (1.0-10.0) % (1.0-10.0) Eosinophils (%) (Auto) % (0.0-3.0) % (0.0-3.0) Basophils (%) (Auto) % (0.0-2.0) % (0.0-2.0) Differential Total Cells Counted 100 100 Neutrophils % (Manual) 54 % (45-75) 46 % (45-75) Lymphocytes % (Manual) 21 % (20-45) 38 % (20-45) Monocytes % (Manual) 16 % (1-10) H 13 % (1-10) H Eosinophils % (Manual) 8 % (0-3) H 3 % (0-3) Basophils % (Manual) 1 % (0-2) 0 % (0-2) Band Neutrophils 0 % (0-8) 0 % (0-8) Platelet Estimate Decreased L Decreased L Platelet Morphology Normal Normal Hypochromasia 1+ 1+ Anisocytosis 2+ 2+ Sodium Level 135 MMOL/L (136-145) L Potassium Level 4.3 MMOL/L (3.5-5.1) Chloride Level 96 MMOL/L (98-107) L Carbon Dioxide Level 27 MMOL/L (21-32) Anion Gap 12 mmol/L (5-15) Blood Urea Nitrogen 64 mg/dL (7-18) H Creatinine 11.2 MG/DL (0.55-1.30) H Estimat Glomerular Filtration Rate 5.8 mL/min (>60) Glucose Level 101 MG/DL (74-106) Calcium Level 9.8 MG/DL (8.5-10.1) Phosphorus Level 8.7 MG/DL (2.5-4.9) H Magnesium Level 2.1 MG/DL (1.8-2.4) Total Bilirubin 0.6 MG/DL (0.2-1.0) Direct Bilirubin 0.2 MG/DL (0.0-0.3) Aspartate Amino Transf (AST/SGOT) 44 U/L (15-37) H Alanine Aminotransferase (ALT/SGPT) 27 U/L (12-78) Alkaline Phosphatase 66 U/L (46-116) Total Protein 7.7 G/DL (6.4-8.2) Albumin 2.6 G/DL (3.4-5.0) L Intake and Output 04/27/19 04/28/19 19:00 07:00 Intake Total 1250 ml 320 ml Balance 1250 ml 320 ml Intake Oral 1250 ml 320 ml # Bowel Movements 1 1 Objective PHYSICAL EXAMINATION: GENERAL: The patient is well-developed and well-nourished male, in no apparent distress. HEENT: Eyes, pupils are equal and responsive to light and accommodation. Extraocular movements are intact. NECK: Supple. No lymphadenopathy. CHEST: Lungs are clear to auscultation bilaterally without wheezes or rales. CARDIOVASCULAR: Regular rhythm and rate. S1 and S2 normal without murmurs, rubs, or gallops. ABDOMEN: Soft, nontender, and nondistended. Positive bowel sounds. No evidence of hepatosplenomegaly. Currently, no rebound or guarding noted. EXTREMITIES: Negative for clubbing, cyanosis, or edema. RECTAL/GENITAL: Refused. NEUROLOGIC: Cranial nerves II through XII are grossly intact without focal deficits. Motor strength is 5/5 bilaterally. Deep tendon reflexes are 2+ plantar. Assessment/Plan Assessment/Plan ASSESSMENT: This is a 53-year-old, male. 1. ?Fracture of the right femoral head? 2. Avascular necrosis of the right femoral head. 3. Human immunodeficiency virus. 4. End-stage renal disease. 5. Atrial fibrillation. 6. Hypertension. 7. Coronary artery disease. 8. History of deep venous thrombosis. TREATMENT: 1.Avascular necrosis of the right femoral head. An Orthopedic consultation has been obtained with Dr. Mannie Rogers-see consult note. An MRI o fthe right hip inconclusive to confirm fracture. The patient has been cleared by cardiology for surgery-see note. 2. Human immunodeficiency virus. Continue HAART medications as above. 4. End-stage renal disease. Nephrology consultation obtained with Dr. Thomas. The patient is S/P dialysis on April 26, 2019. 5. Atrial fibrillation. A Cardiology consultation has been obtained with Dr. Heath Valencia. 6. Hypertension. Continue atenolol as above. 7. Coronary artery disease. As above, a Cardiology consultation has been obtained with Dr. Heath aVlencia. 8. History of deep venous thrombosis. 9. Discussed with Ortho-Dr Rogers-right hip replacement "too complicated" for [facility]-transfer to [facility] Fabricio Guillory MD Apr 28, 2019 13:07
--- NOTE | 2019-04-28 14:56 | NUR ---
NURSE NOTES: Called [facility] to schedule HD for patient tomorrow (04/29/19). Spoke with Sohan at [facility] who will notify the HD nurse
--- NOTE | 2019-04-28 15:05 | NUR ---
NURSE NOTES: Pt was not able to tolerate CT and is refusing to do it at this time. Dr. Patterson made aware.
[2019-04-28 16:00] VITALS: BP 120/75
--- NOTE | 2019-04-28 19:28 | NUR ---
HAND-OFF: Report given to JEFRY Shafer. Plan of care endorsed
--- NOTE | 2019-04-28 19:31 | NUR ---
NURSE NOTES: Received patient from [facility]. Patient in bed, asleep, no c/o pain. On room air, no s/s of respiratory distress. Bed locked, in low position, bed alarm on, call light within reach.
[2019-04-28 20:40] VITALS: BP 135/83
[2019-04-29] VITALS: BP 117/69
[2019-04-29 04:00] VITALS: BP 139/79
--- NOTE | 2019-04-29 06:28 | Pulmonology Progress Note ---
Assessment/Plan Problems: (1) Hemoptysis (2) Fracture of head of right femur (3) Avascular necrosis of bone of hip (4) Atrial fibrillation (5) HIV (human immunodeficiency virus infection) (6) Hypertension (7) ESRD on hemodialysis (8) Anemia in chronic kidney disease (9) Seizure disorder (10) Coronary artery disease (11) Pancreatitis, chronic (12) Peripheral vascular disease Assessment/Plan CT of chest was not done, since pt refused awaiting ortho's decision all reviewed BP more stable now pain management HD access site needs to be changed symptomatic treatment f/u troponin Subjective ROS Limited/Unobtainable: No Constitutional: Reports: no symptoms HEENT: Repors: no symptoms Respiratory: Reports: no symptoms Allergies: Coded Allergies: FLUTICASONE (Unverified Allergy, Unknown, 02/23/17) LEVOFLOXACIN (Unverified Allergy, Unknown, 08/22/14) MORPHINE (Unverified Allergy, Unknown, 02/23/17) Objective Last 24 Hour Vital Signs Date Time Temp Pulse Resp B/P (MAP) Pulse Ox O2 Delivery O2 Flow Rate FiO2 04/29/19 04:00 64 04/29/19 04:00 98.0 66 19 139/79 (99) 95 04/29/19 00:00 69 04/29/19 00:00 98.1 57 17 117/69 (85) 95 04/28/19 21:05 96 Room Air 21 04/28/19 20:44 74 135/83 04/28/19 20:40 98.3 74 16 135/83 (100) 97 04/28/19 20:00 Room Air 04/28/19 20:00 61 04/28/19 16:00 72 04/28/19 16:00 97.5 60 18 120/75 (90) 95 04/28/19 12:00 97.6 64 20 106/67 (80) 96 04/28/19 12:00 60 04/28/19 09:00 Room Air 04/28/19 08:00 99.2 60 18 107/89 (95) 97 04/28/19 08:00 75 Intake and Output 04/28/19 04/29/19 19:00 07:00 Intake Total 360 ml Balance 360 ml Intake Oral 360 ml # Bowel Movements 1 1 Objective MRI done, coughing up blood now Current Medications Medications (Trade) Dose Ordered Sig/Anum Route PRN Reason Start Time Stop Time Status Last Admin Dose Admin Acetaminophen (Tylenol) 650 mg Q4H PRN ORAL Prn Headache/Temp > 101 04/24/19 13:00 05/24/19 12:59 Dextrose (Dextrose 50%) 25 ml Q30M PRN IV Hypoglycemia 04/23/19 23:15 05/23/19 23:14 Dextrose (Dextrose 50%) 50 ml Q30M PRN IV Hypoglycemia 04/23/19 23:15 05/23/19 23:14 Diphenhydramine HCl (Benadryl) 25 mg DAILYPRN PRN IVP Give with dialysis treatments 04/24/19 17:30 05/24/19 17:29 Docusate Sodium (Colace) 100 mg THREE TIMES A DAY ORAL 04/24/19 13:00 05/24/19 12:59 04/28/19 17:16 Gabapentin (Neurontin) 300 mg BID ORAL 04/24/19 18:00 05/24/19 17:59 04/28/19 17:17 Hydralazine HCl (Apresoline) 10 mg Q4H PRN IV bp over 160 syst 04/24/19 13:00 05/24/19 12:59 Hydromorphone HCl (Dilaudid) 3 mg Q3H PRN IVP Severe Pain (Pain Scale 7-10) 04/25/19 19:15 05/02/19 19:14 04/29/19 05:21 Iopamidol (Isovue-300 100ml) 100 ml NOW PRN INJ Radiology Procedure 04/28/19 06:30 04/30/19 06:19 Lactulose (Cephulac) 20 gm THREE TIMES A DAY ORAL 04/25/19 18:00 05/25/19 17:59 04/28/19 17:16 Lorazepam (Ativan 2mg/ml 1ml) 0.5 mg Q6H PRN IV For Seizures 04/24/19 17:30 05/01/19 17:29 04/26/19 14:20 Metoprolol Tartrate (Lopressor) 12.5 mg Q12HR ORAL 04/26/19 09:00 05/26/19 08:59 04/28/19 20:44 Ondansetron HCl (Zofran) 4 mg Q6H PRN IVP Nausea & Vomiting 04/23/19 23:15 05/23/19 23:14 Oxycodone HCl (Roxicodone) 30 mg Q6H PRN ORAL Moderate Pain (Pain Scale 4-6) 04/24/19 09:45 04/30/19 23:14 04/28/19 03:07 Pantoprazole (Protonix) 40 mg EVERY 12 HOURS ORAL 04/24/19 21:00 05/24/19 20:59 04/28/19 20:44 Patient Own Medication (Patient's Own Med) 1 ea BID ORAL 04/26/19 18:00 05/26/19 17:59 04/28/19 17:16 Patient Own Medication (Patient's Own Med) 1 ea DAILY ORAL 04/26/19 17:00 05/26/19 16:59 04/28/19 09:00 Patient Own Medication (Patient's Own Med) 1 ea DAILY ORAL 04/26/19 17:00 05/26/19 16:59 04/28/19 09:01 Polyethylene Glycol (Miralax) 17 gm DAILYPRN PRN ORAL Constipation 04/23/19 23:15 05/23/19 23:14 Pravastatin Sodium (Pravachol) 40 mg QHS ORAL 04/24/19 21:00 05/24/19 20:59 04/28/19 20:44 Sevelamer Carbonate (Renvela) 2,400 mg THREE TIMES A DAY ORAL 04/25/19 18:00 05/24/19 12:59 04/28/19 17:16 Temazepam (Restoril) 15 mg HSPRN PRN ORAL Insomnia 04/23/19 23:15 04/30/19 23:14 04/24/19 23:19 Srinivasan Patterson MD Apr 29, 2019 06:28
--- NOTE | 2019-04-29 07:35 | NUR ---
NURSE NOTES: Received patient in bed from nurse Hollis Monae. Patient sleepy but arousable. bed in lowest position. aiyana ewingroyer X@ up. call gamble within reached. Will follow.
[2019-04-29 07:38] LABS: HEMATOCRIT 39.1 % (42.0-52.0); HEMOGLOBIN 11.7 G/DL (14.2-18.0); MEAN CORPUSCULAR VOLUME 82 FL (80-99); PLATELET COUNT 105 K/UL (150-450); RED BLOOD COUNT 4.79 M/UL (4.70-6.10); RED CELL DISTRIBUTION WIDTH 19.2 % (11.6-14.8); WHITE BLOOD COUNT 3.2 K/UL (4.8-10.8)
--- NOTE | 2019-04-29 07:39 | NUR ---
HAND-OFF: Report given to Kimberly CAPPS. Plan of care endorsed.
--- NOTE | 2019-04-29 07:40 | NUR ---
HAND-OFF: Report given to Shaq CAPPS. Plan of care endorsed.
[2019-04-29 07:56] LABS: INR 1.1 (0.9-1.1)
[2019-04-29 08:00] VITALS: BP 128/71
[2019-04-29 08:07] LABS: ALANINE AMINOTRANSFERASE 27 U/L (12-78); ALBUMIN 2.8 G/DL (3.4-5.0); ALBUMIN/GLOBULIN RATIO 0.5 (1.0-2.7); ALKALINE PHOSPHATASE 63 U/L (46-116); ANION GAP 15 mmol/L (5-15); ASPARTATE AMINO TRANSFERASE 45 U/L (15-37); BILIRUBIN,TOTAL 0.8 MG/DL (0.2-1.0); BLOOD UREA NITROGEN 72 mg/dL (7-18); CALCIUM 10.7 MG/DL (8.5-10.1); CARBON DIOXIDE 26 MMOL/L (21-32); CHLORIDE 97 MMOL/L (98-107); PHOSPHORUS 9.6 MG/DL (2.5-4.9); POTASSIUM 4.7 MMOL/L (3.5-5.1); SODIUM 137 MMOL/L (136-145)
[2019-04-29] MEDS: Metoprolol Tartrate 12.5mg TAB ORAL SCH ×2 (08:55→21:47)
[2019-04-29] MEDS: Docusate 100mg cap ORAL SCH ×3 (08:55→17:12)
[2019-04-29] MEDS: Lactulose 20gm/30ml UDC ORAL SCH ×3 (08:55→17:13)
[2019-04-29] MEDS: Patient's Own Med - Ritonavir 100mg ORAL SCH (08:56)
--- NOTE | 2019-04-29 09:22 | Cardiology Progress Note ---
Assessment/Plan Status: stable Assessment/Plan Assessment/Plan Assessment/Plan 1. Nonsustained ventricular tachycardia. Could be atrial fib with aberrancy. S/ P hemodialysis. EF 45-50%. No recurrence 2. Atrial fibrillation with bradycardia Decreased metoprolol to 12.5 bid On subcutaneous heparin but likely would need long-term oral anticoagulation like Eliquis after hip surgery 3. Troponin leak. Due to renal failure. No CP or SOB. Follow troponin prn 3. End-stage renal disease, on hemodialysis. Right femoral HD catheter needs to be removed before Hip surgery 4. 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 Total hip replacement by Dr Rogers pendinder. 5. Hypertension - controlled Subjective Cardiovascular: Reports: no symptoms Respiratory: Reports: no symptoms Gastrointestinal/Abdominal: Reports: no symptoms Genitourinary: Reports: no symptoms Subjective coverage for Tol[place] no acute events, no complaints, vitals stable Objective Last 24 Hour Vital Signs Date Time Temp Pulse Resp B/P (MAP) Pulse Ox O2 Delivery O2 Flow Rate FiO2 04/29/19 08:55 72 128/71 04/29/19 08:00 97.5 72 20 128/71 (90) 96 04/29/19 04:00 64 04/29/19 04:00 98.0 66 19 139/79 (99) 95 04/29/19 00:00 69 04/29/19 00:00 98.1 57 17 117/69 (85) 95 04/28/19 21:05 96 Room Air 21 04/28/19 20:44 74 135/83 04/28/19 20:40 98.3 74 16 135/83 (100) 97 04/28/19 20:00 Room Air 04/28/19 20:00 61 04/28/19 16:00 72 04/28/19 16:00 97.5 60 18 120/75 (90) 95 04/28/19 12:00 97.6 64 20 106/67 (80) 96 04/28/19 12:00 60 General Appearance: no apparent distress, alert EENT: PERRL/EOMI, normal ENT inspection, TMs normal, pharynx normal Neck: non-tender, normal alignment, supple, normal inspection, no JVD Rhythm: NSR Cardiovascular: normal peripheral pulses, normal rate Respiratory/Chest: chest wall non-tender, lungs clear, normal breath sounds Abdomen: normal bowel sounds, non tender, soft, no organomegaly, no mass Extremities: normal range of motion, non-tender, normal inspection Neurologic: delinquency counselor II-XII grossly normal, no motor/sensory deficits Intake and Output 04/28/19 04/29/19 19:00 07:00 Intake Total 360 ml 120 ml Balance 360 ml 120 ml Intake Oral 360 ml 120 ml # Bowel Movements 1 1 Laboratory Tests Test 04/29/19 05:52 White Blood Count 3.2 K/UL (4.8-10.8) L Red Blood Count 4.79 M/UL (4.70-6.10) Hemoglobin 11.7 G/DL (14.2-18.0) L Hematocrit 39.1 % (42.0-52.0) L Mean Corpuscular Volume 82 FL (80-99) Mean Corpuscular Hemoglobin 24.3 PG (27.0-31.0) L Mean Corpuscular Hemoglobin Concent 29.8 G/DL (32.0-36.0) L Red Cell Distribution Width 19.2 % (11.6-14.8) H Platelet Count 105 K/UL (150-450) L Mean Platelet Volume 6.5 FL (6.5-10.1) Neutrophils (%) (Auto) % (45.0-75.0) Lymphocytes (%) (Auto) % (20.0-45.0) Monocytes (%) (Auto) % (1.0-10.0) Eosinophils (%) (Auto) % (0.0-3.0) Basophils (%) (Auto) % (0.0-2.0) Neutrophils % (Manual) Pending Lymphocytes % (Manual) Pending Platelet Estimate Pending Platelet Morphology Pending Prothrombin Time 11.2 SEC (9.30-11.50) Prothromb Time International Ratio 1.1 (0.9-1.1) Activated Partial Thromboplast Time 38 SEC (23-33) H Sodium Level 137 MMOL/L (136-145) Potassium Level 4.7 MMOL/L (3.5-5.1) Chloride Level 97 MMOL/L (98-107) L Carbon Dioxide Level 26 MMOL/L (21-32) Anion Gap 15 mmol/L (5-15) Blood Urea Nitrogen 72 mg/dL (7-18) H Creatinine 13.0 MG/DL (0.55-1.30) H Estimat Glomerular Filtration Rate 4.8 mL/min (>60) Glucose Level 79 MG/DL (74-106) Calcium Level 10.7 MG/DL (8.5-10.1) H Phosphorus Level 9.6 MG/DL (2.5-4.9) H Magnesium Level 2.3 MG/DL (1.8-2.4) Total Bilirubin 0.8 MG/DL (0.2-1.0) Aspartate Amino Transf (AST/SGOT) 45 U/L (15-37) H Alanine Aminotransferase (ALT/SGPT) 27 U/L (12-78) Alkaline Phosphatase 63 U/L (46-116) Total Protein 8.3 G/DL (6.4-8.2) H Albumin 2.8 G/DL (3.4-5.0) L Globulin 5.5 g/dL Albumin/Globulin Ratio 0.5 (1.0-2.7) L Hal Jin MD Apr 29, 2019 09:22
--- NOTE | 2019-04-29 10:34 | NUR ---
NURSE NOTES: Called [employer] left message with the answering service for the HD nurse. I gave pt beta jerica at [phone] and want to make sure HD nurse is aware. I notified nursing seismograph supervisor as well. Pts current BP is 123/91 and heart rate is 66.
--- NOTE | 2019-04-29 10:51 | NUR ---
NURSE NOTES: Received call from Russell Carvajal, the HD nurse. I notified her about the BP med. she said its ok and that she will just monitor patient.
--- NOTE | 2019-04-29 11:00 | NUR ---
TRANSFER TO FLOOR: Patient transferred to 4E , per MD orders. Report given to JEFRY Hearn. Belongings at patients bedside. Pt stable at time of transfer
[2019-04-29] MEDS ORDERED: LORazepam Inj 2mg/ml 1ml IV PRN (11:30)
[2019-04-29] MEDS ORDERED: Acetaminophen 650mg/20.3ml ORAL PRN (11:50)
[2019-04-29] MEDS ORDERED: oxyCODONE 15mg IR tab ORAL PRN (11:50)
[2019-04-29 12:00] VITALS: BP 149/91
[2019-04-29] MEDS: DiphenhydrAMINE 50mg/ml Inj IVP PRN (12:17)
--- NOTE | 2019-04-29 14:56 | Nephrology Progress Note ---
Assessment/Plan Problem List: (1) ESRD on hemodialysis (2) Peripheral vascular disease (3) HIV (human immunodeficiency virus infection) (4) Coronary artery disease (5) Atrial fibrillation Assessment Right Hip Fx- Renal Osteo Dystrophy ESRD, High K of 6.2 HTN of CKD Asthma At Fib CAD PVD HIV Disease Sz disorder Plan Plan: HD next 04/29- in process BP control pain management phos binders lactulose ortho eval per orders Subjective ROS Limited/Unobtainable: No Objective Objective Last 24 Hour Vital Signs Date Time Temp Pulse Resp B/P (MAP) Pulse Ox O2 Delivery O2 Flow Rate FiO2 04/29/19 09:00 Room Air 04/29/19 08:55 72 128/71 04/29/19 08:00 97.5 72 20 128/71 (90) 96 04/29/19 08:00 67 04/29/19 04:00 64 04/29/19 04:00 98.0 66 19 139/79 (99) 95 04/29/19 00:00 69 04/29/19 00:00 98.1 57 17 117/69 (85) 95 04/28/19 21:05 96 Room Air 21 04/28/19 20:44 74 135/83 04/28/19 20:40 98.3 74 16 135/83 (100) 97 04/28/19 20:00 Room Air 04/28/19 20:00 61 04/28/19 16:00 72 04/28/19 16:00 97.5 60 18 120/75 (90) 95 Intake and Output 04/28/19 04/29/19 19:00 07:00 Intake Total 360 ml 120 ml Balance 360 ml 120 ml Intake Oral 360 ml 120 ml # Bowel Movements 1 1 Laboratory Tests 04/29/19 05:52: White Blood Count 3.2L, Red Blood Count 4.79, Hemoglobin 11.7L, Hematocrit 39.1L , Mean Corpuscular Volume 82, Mean Corpuscular Hemoglobin 24.3L, Mean Corpuscular Hemoglobin Concent 29.8L, Red Cell Distribution Width 19.2H, Platelet Count 105L, Mean Platelet Volume 6.5, Neutrophils (%) (Auto) , Lymphocytes (%) (Auto) , Monocytes (%) (Auto) , Eosinophils (%) (Auto) , Basophils (%) (Auto) , Differential Total Cells Counted 100, Neutrophils % ( Manual) 55, Lymphocytes % (Manual) 23, Monocytes % (Manual) 16H, Eosinophils % ( Manual) 6H, Basophils % (Manual) 0, Band Neutrophils 0, Platelet Estimate DecreasedL, Platelet Morphology Normal, Hypochromasia 1+, Anisocytosis 1+, Prothrombin Time 11.2, Prothromb Time International Ratio 1.1, Activated Partial Thromboplast Time 38H, Sodium Level 137, Potassium Level 4.7, Chloride Level 97L, Carbon Dioxide Level 26, Anion Gap 15, Blood Urea Nitrogen 72H, Creatinine 13.0H, Estimat Glomerular Filtration Rate 4.8, Glucose Level 79, Calcium Level 10.7H, Phosphorus Level 9.6H, Magnesium Level 2.3, Total Bilirubin 0.8, Aspartate Amino Transf (AST/SGOT) 45H, Alanine Aminotransferase ( ALT/SGPT) 27, Alkaline Phosphatase 63, Total Protein 8.3H, Albumin 2.8L, Globulin 5.5, Albumin/Globulin Ratio 0.5L Height (Feet): 6 Height (Inches): 3.00 Weight (Pounds): 196 General Appearance: no apparent distress Objective no change Perfecto Thomas MD Apr 29, 2019 14:56
--- NOTE | 2019-04-29 15:10 | Internal Med Progress Note ---
Subjective Date of Service: Apr 29, 2019 Physician Name Fabricio Guillory Attending Physician Nabeel Hoff MD Current Medications Medications (Trade) Dose Ordered Sig/Anum Route PRN Reason Start Time Stop Time Status Last Admin Dose Admin Acetaminophen (Tylenol) 650 mg Q4H PRN ORAL Prn Headache/Temp > 101 04/29/19 11:50 05/24/19 11:49 Dextrose (Dextrose 50%) 25 ml Q30M PRN IV Hypoglycemia 04/29/19 11:45 05/23/19 23:14 Dextrose (Dextrose 50%) 50 ml Q30M PRN IV Hypoglycemia 04/29/19 11:45 05/23/19 23:14 Diphenhydramine HCl (Benadryl) 25 mg DAILYPRN PRN IVP Give with dialysis treatments 04/29/19 12:03 05/24/19 12:02 04/29/19 12:17 Docusate Sodium (Colace) 100 mg THREE TIMES A DAY ORAL 04/29/19 13:00 05/24/19 12:59 Gabapentin (Neurontin) 300 mg BID ORAL 04/29/19 18:00 05/24/19 17:59 Hydralazine HCl (Apresoline) 10 mg Q4H PRN IV bp over 160 syst 04/29/19 13:00 05/24/19 12:59 Hydromorphone HCl (Dilaudid) 3 mg Q3H PRN IVP Severe Pain (Pain Scale 7-10) 04/29/19 11:50 05/02/19 11:49 04/29/19 11:54 Iopamidol (Isovue-300 100ml) 100 ml NOW PRN INJ Radiology Procedure 04/30/19 06:30 04/30/19 23:59 Lactulose (Cephulac) 20 gm THREE TIMES A DAY ORAL 04/29/19 13:00 05/25/19 17:59 Lorazepam (Ativan 2mg/ml 1ml) 0.5 mg Q6H PRN IV For Seizures 04/29/19 11:30 05/01/19 17:29 Metoprolol Tartrate (Lopressor) 12.5 mg Q12HR ORAL 04/29/19 21:00 05/26/19 08:59 Ondansetron HCl (Zofran) 4 mg Q6H PRN IVP Nausea & Vomiting 04/29/19 12:03 05/23/19 12:02 Oxycodone HCl (Roxicodone) 30 mg Q6H PRN ORAL Moderate Pain (Pain Scale 4-6) 04/29/19 11:50 04/30/19 11:49 Pantoprazole (Protonix) 40 mg EVERY 12 HOURS ORAL 04/29/19 21:00 05/24/19 20:59 Patient Own Medication (Patient's Own Med) 1 ea BID ORAL 04/29/19 18:00 05/26/19 17:59 Patient Own Medication (Patient's Own Med) 1 ea DAILY ORAL 04/30/19 09:00 05/26/19 16:59 Patient Own Medication (Patient's Own Med) 1 ea DAILY ORAL 04/30/19 09:00 05/26/19 16:59 Polyethylene Glycol (Miralax) 17 gm DAILYPRN PRN ORAL Constipation 04/29/19 23:15 05/23/19 23:14 Pravastatin Sodium (Pravachol) 40 mg QHS ORAL 04/29/19 21:00 05/24/19 20:59 Sevelamer Carbonate (Renvela) 2,400 mg THREE TIMES A DAY ORAL 04/29/19 13:00 05/24/19 12:59 Temazepam (Restoril) 15 mg HSPRN PRN ORAL Insomnia 04/29/19 23:15 04/30/19 23:14 Allergies: Coded Allergies: FLUTICASONE (Unverified Allergy, Unknown, 02/23/17) LEVOFLOXACIN (Unverified Allergy, Unknown, 08/22/14) MORPHINE (Unverified Allergy, Unknown, 02/23/17) ROS Limited/Unobtainable: No Constitutional: Reports: no symptoms HEENT: Reports: no symptoms Cardiovascular: Reports: no symptoms Respiratory: Reports: no symptoms Gastrointestinal/Abdominal: Reports: no symptoms Genitourinary: Reports: no symptoms Neurologic/Psychiatric: Reports: no symptoms Subjective 53 YO M admitted with right hip pain. Now avascular necrosis right femoral head. Cover for Int Med-Dr Hoff. Await transfer to [facility] Objective Last Vital Signs Date Time Temp Pulse Resp B/P (MAP) Pulse Ox O2 Delivery O2 Flow Rate FiO2 04/29/19 09:00 Room Air 04/29/19 08:55 72 128/71 04/29/19 08:00 97.5 20 96 04/28/19 21:05 21 04/27/19 20:00 2.0 Laboratory Tests Test 04/29/19 05:52 White Blood Count 3.2 K/UL (4.8-10.8) L Red Blood Count 4.79 M/UL (4.70-6.10) Hemoglobin 11.7 G/DL (14.2-18.0) L Hematocrit 39.1 % (42.0-52.0) L Mean Corpuscular Volume 82 FL (80-99) Mean Corpuscular Hemoglobin 24.3 PG (27.0-31.0) L Mean Corpuscular Hemoglobin Concent 29.8 G/DL (32.0-36.0) L Red Cell Distribution Width 19.2 % (11.6-14.8) H Platelet Count 105 K/UL (150-450) L Mean Platelet Volume 6.5 FL (6.5-10.1) Neutrophils (%) (Auto) % (45.0-75.0) Lymphocytes (%) (Auto) % (20.0-45.0) Monocytes (%) (Auto) % (1.0-10.0) Eosinophils (%) (Auto) % (0.0-3.0) Basophils (%) (Auto) % (0.0-2.0) Differential Total Cells Counted 100 Neutrophils % (Manual) 55 % (45-75) Lymphocytes % (Manual) 23 % (20-45) Monocytes % (Manual) 16 % (1-10) H Eosinophils % (Manual) 6 % (0-3) H Basophils % (Manual) 0 % (0-2) Band Neutrophils 0 % (0-8) Platelet Estimate Decreased L Platelet Morphology Normal Hypochromasia 1+ Anisocytosis 1+ Prothrombin Time 11.2 SEC (9.30-11.50) Prothromb Time International Ratio 1.1 (0.9-1.1) Activated Partial Thromboplast Time 38 SEC (23-33) H Sodium Level 137 MMOL/L (136-145) Potassium Level 4.7 MMOL/L (3.5-5.1) Chloride Level 97 MMOL/L (98-107) L Carbon Dioxide Level 26 MMOL/L (21-32) Anion Gap 15 mmol/L (5-15) Blood Urea Nitrogen 72 mg/dL (7-18) H Creatinine 13.0 MG/DL (0.55-1.30) H Estimat Glomerular Filtration Rate 4.8 mL/min (>60) Glucose Level 79 MG/DL (74-106) Calcium Level 10.7 MG/DL (8.5-10.1) H Phosphorus Level 9.6 MG/DL (2.5-4.9) H Magnesium Level 2.3 MG/DL (1.8-2.4) Total Bilirubin 0.8 MG/DL (0.2-1.0) Aspartate Amino Transf (AST/SGOT) 45 U/L (15-37) H Alanine Aminotransferase (ALT/SGPT) 27 U/L (12-78) Alkaline Phosphatase 63 U/L (46-116) Total Protein 8.3 G/DL (6.4-8.2) H Albumin 2.8 G/DL (3.4-5.0) L Globulin 5.5 g/dL Albumin/Globulin Ratio 0.5 (1.0-2.7) L Intake and Output 04/28/19 04/29/19 19:00 07:00 Intake Total 360 ml 120 ml Balance 360 ml 120 ml Intake Oral 360 ml 120 ml # Bowel Movements 1 1 Objective PHYSICAL EXAMINATION: GENERAL: The patient is well-developed and well-nourished male, in no apparent distress. HEENT: Eyes, pupils are equal and responsive to light and accommodation. Extraocular movements are intact. NECK: Supple. No lymphadenopathy. CHEST: Lungs are clear to auscultation bilaterally without wheezes or rales. CARDIOVASCULAR: Regular rhythm and rate. S1 and S2 normal without murmurs, rubs, or gallops. ABDOMEN: Soft, nontender, and nondistended. Positive bowel sounds. No evidence of hepatosplenomegaly. Currently, no rebound or guarding noted. EXTREMITIES: Negative for clubbing, cyanosis, or edema. RECTAL/GENITAL: Refused. NEUROLOGIC: Cranial nerves II through XII are grossly intact without focal deficits. Motor strength is 5/5 bilaterally. Deep tendon reflexes are 2+ plantar. Assessment/Plan Assessment/Plan ASSESSMENT: This is a 53-year-old, male. 1. ?Fracture of the right femoral head? 2. Avascular necrosis of the right femoral head. 3. Human immunodeficiency virus. 4. End-stage renal disease. 5. Atrial fibrillation. 6. Hypertension. 7. Coronary artery disease. 8. History of deep venous thrombosis. TREATMENT: 1.Avascular necrosis of the right femoral head. An Orthopedic consultation has been obtained with Dr. Mannie Rogers-see consult note. An MRI o fthe right hip inconclusive to confirm fracture. The patient has been cleared by cardiology for surgery-see note. 2. Human immunodeficiency virus. Continue HAART medications as above. 4. End-stage renal disease. Nephrology consultation obtained with Dr. Thomas. The patient is S/P dialysis on April 29, 2019. 5. Atrial fibrillation. A Cardiology consultation has been obtained with Dr. Heath Valencia. 6. Hypertension. Continue atenolol as above. 7. Coronary artery disease. As above, a Cardiology consultation has been obtained with Dr. Heath Valencia. 8. History of deep venous thrombosis. 9. Discussed with Ortho-Dr Rogers-right hip replacement "too complicated" for [facility]-transfer to [facility] Fabricio Guillory MD Apr 29, 2019 15:10
[2019-04-29 16:00] VITALS: BP 124/72
--- NOTE | 2019-04-29 19:50 | NUR ---
HAND-OFF: Report given to Lazaro.
[2019-04-29 20:00] VITALS: BP 129/74
--- NOTE | 2019-04-29 20:29 | NUR ---
NURSE NOTES: Received patient in bed. Alert and verbally responsive. On room air. Harmeet cath on R leg is intact and patent. Pain 6/10 on R leg. IV on L hand 22 G intact and patent. Bed locked, lowest position, alarm on, call light within reach. Will continue to monitor. Addendum: 04/29/19 at 2344 by LUIS FELIPE JIMENEZ RN RN NURSE NOTES: Not Harmeet cath. Perma cath.
[2019-04-29] MEDS ORDERED: Miralax 17gm pkt ORAL PRN (23:15)
[2019-04-30] VITALS: BP 134/79
[2019-04-30 04:00] VITALS: BP 129/71
[2019-04-30] MEDS ORDERED: Isovue-300 100ml vial INJ PRN (06:30)
[2019-04-30 07:22] LABS: ANION GAP 11 mmol/L (5-15); BLOOD UREA NITROGEN 53 mg/dL (7-18); CALCIUM 10.3 MG/DL (8.5-10.1); CARBON DIOXIDE 29 MMOL/L (21-32); CHLORIDE 94 MMOL/L (98-107); CREATININE 10.3 MG/DL (0.55-1.30); POTASSIUM 4.1 MMOL/L (3.5-5.1); SODIUM 134 MMOL/L (136-145)
--- NOTE | 2019-04-30 07:27 | NUR ---
HAND-OFF: Report given to JEFRY Hearn.
[2019-04-30 07:36] LABS: HEMATOCRIT 38.7 % (42.0-52.0); HEMOGLOBIN 11.8 G/DL (14.2-18.0); MEAN CORPUSCULAR VOLUME 81 FL (80-99); PLATELET COUNT 124 K/UL (150-450); RED CELL DISTRIBUTION WIDTH 18.9 % (11.6-14.8)
[2019-04-30 08:00] VITALS: BP 142/98
[2019-04-30] MEDS: Metoprolol Tartrate 12.5mg TAB ORAL SCH ×2 (09:07→20:20)
[2019-04-30] MEDS: Docusate 100mg cap ORAL SCH ×3 (09:08→17:43)
[2019-04-30] MEDS: Lactulose 20gm/30ml UDC ORAL SCH ×3 (09:11→17:43)
[2019-04-30 12:00] VITALS: BP 114/67
--- NOTE | 2019-04-30 12:01 | NUR ---
CASE MANAGEMENT:REVIEW 04/30/2019 SI: RT HIP AVASCULAR NECROSIS RT HIP FRACTURE. 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
--- NOTE | 2019-04-30 12:03 | NUR ---
DISCHARGE/TRANSFER: NOTE CLINICALS FAXED TO [facility] FOR REVIEW Addendum: 04/30/19 at 1747 by Marleny Gill CM PT IS ON THE TRANSFER LIST PER AWAITING FINANCIAL CLEARANCE AND AN ACCEPTING NARCISO CARBAJAL
--- NOTE | 2019-04-30 12:31 | Nephrology Progress Note ---
Assessment/Plan Problem List: (1) ESRD on hemodialysis (2) Peripheral vascular disease (3) HIV (human immunodeficiency virus infection) (4) Coronary artery disease (5) Atrial fibrillation Assessment Right Hip Fx- Renal Osteo Dystrophy ESRD, High K of 6.2 HTN of CKD Asthma At Fib CAD PVD HIV Disease Sz disorder Plan Plan: HD next 05/01 BP control pain management phos binders lactulose ortho eval suggestions noted per orders ? DC / Transfer Subjective ROS Limited/Unobtainable: No Constitutional: Reports: malaise Objective Objective Last 24 Hour Vital Signs Date Time Temp Pulse Resp B/P (MAP) Pulse Ox O2 Delivery O2 Flow Rate FiO2 04/30/19 09:52 99.3 04/30/19 09:07 71 142/98 04/30/19 09:00 Room Air 04/30/19 08:00 99.3 71 20 142/98 (113) 98 04/30/19 04:00 98.4 75 18 129/71 (90) 97 04/30/19 00:00 97.5 78 18 134/79 (97) 98 04/29/19 21:47 67 127/75 04/29/19 21:00 Room Air 04/29/19 20:00 96.9 64 18 129/74 (92) 95 04/29/19 16:00 97.5 61 18 124/72 (89) 95 Intake and Output 04/29/19 04/30/19 19:00 07:00 Intake Total 120 ml Balance 120 ml Intake Oral 120 ml # Voids 1 Laboratory Tests 04/30/19 04:00: Sodium Level 134L, Potassium Level 4.1, Chloride Level 94L, Carbon Dioxide Level 29, Anion Gap 11, Blood Urea Nitrogen 53H, Creatinine 10.3H, Estimat Glomerular Filtration Rate 6.4, Glucose Level 94, Calcium Level 10.3H 04/30/19 06:20: White Blood Count 3.0L, Red Blood Count 4.80, Hemoglobin 11.8L, Hematocrit 38.7L , Mean Corpuscular Volume 81, Mean Corpuscular Hemoglobin 24.6L, Mean Corpuscular Hemoglobin Concent 30.5L, Red Cell Distribution Width 18.9H, Platelet Count 124L, Mean Platelet Volume 6.9, Neutrophils (%) (Auto) , Lymphocytes (%) (Auto) , Monocytes (%) (Auto) , Eosinophils (%) (Auto) , Basophils (%) (Auto) , Differential Total Cells Counted 100, Neutrophils % ( Manual) 57, Lymphocytes % (Manual) 23, Monocytes % (Manual) 15H, Eosinophils % ( Manual) 4H, Basophils % (Manual) 1, Band Neutrophils 0, Platelet Estimate DecreasedL, Platelet Morphology Normal, Hypochromasia 1+, Anisocytosis 2+ Height (Feet): 6 Height (Inches): 3.00 Weight (Pounds): 196 General Appearance: no apparent distress Cardiovascular: normal rate Respiratory/Chest: lungs clear Abdomen: soft Objective no change Perfecto Thomas MD Apr 30, 2019 12:31
--- NOTE | 2019-04-30 13:30 | NUR ---
NURSE NOTES: contacted Asia from [facility] Neprology, notified regarding pt's routine HD tomorrow 05/01/19. Will be awaiting call back with confirmation.
--- NOTE | 2019-04-30 14:39 | Infectious Diseases Prog Note ---
Assessment/Plan Assessment/Plan Assessment: R femoral avascular necrosis -MRI HIp: AVN of the right hip with subchondral signal abnormality. The study is significantly degraded by motion. -CT hip: Evidence of avascular necrosis of the right hip with subchondral fractures and moderate arthrosis. Renal osteodystrophy. Other findings as above Afebrile Pancytopenia HIV dx 1994- on ARV -03/2019: CD4 226 (28.1%), VL p -12/2017: VL 460; CD4 133 (2014) HLD Asthma HTN GERD CAD PVD -s/p L 3rd and 4th toe amputation chronic L 2nd toe OM s/p tx 12/2017 hx pericardial effusion ESRD on HD TTSat w/ thrombose R upper arm AV graft, on kidney transplant list Seizure disorder syncope s/p cholecystectomy s/p appendectomy s/p lumbar laminectomy, Plan: -Continue to monitor off systemic antibiotics -Continue ARV: Prezista, Norvir, Isentress -f/u cx -Monitor CBC/CMP, temperatures -Ortho f/u- recommends elective R THR -f/uHIV VL Thank you for this consultation. Will continue to follow along with you. Discussed with RN. Subjective Allergies: Coded Allergies: FLUTICASONE (Unverified Allergy, Unknown, 02/23/17) LEVOFLOXACIN (Unverified Allergy, Unknown, 08/22/14) MORPHINE (Unverified Allergy, Unknown, 02/23/17) Subjective afebrile no leukocytosis Objective Vital Signs Last 24 Hour Vital Signs Date Time Temp Pulse Resp B/P (MAP) Pulse Ox O2 Delivery O2 Flow Rate FiO2 04/30/19 13:12 99.3 04/30/19 12:00 98.8 70 20 114/67 (83) 98 04/30/19 09:07 71 142/98 04/30/19 09:00 Room Air 04/30/19 08:00 99.3 71 20 142/98 (113) 98 04/30/19 04:00 98.4 75 18 129/71 (90) 97 04/30/19 00:00 97.5 78 18 134/79 (97) 98 04/29/19 21:47 67 127/75 04/29/19 21:00 Room Air 04/29/19 20:00 96.9 64 18 129/74 (92) 95 04/29/19 16:00 97.5 61 18 124/72 (89) 95 Height (Feet): 6 Height (Inches): 3.00 Weight (Pounds): 192 Objective GENERAL: The patient is well-developed and well-nourished male, in no apparent distress. HEENT: Eyes, pupils are equal and responsive to light and accommodation. Extraocular movements are intact. NECK: Supple. No lymphadenopathy. CHEST: Lungs are clear to auscultation bilaterally without wheezes or rales. CARDIOVASCULAR: Regular rhythm and rate. S1 and S2 normal without murmurs, rubs, or gallops. ABDOMEN: Soft, nontender, and nondistended. Positive bowel sounds. No evidence of hepatosplenomegaly. Currently, no rebound or guarding noted. EXTREMITIES: Negative for clubbing, cyanosis, or edema. NEUROLOGIC: Cranial nerves II through XII are grossly intact without focal deficits. Motor strength is 5/5 bilaterally. Deep tendon reflexes are 2+ plantar Laboratory Tests Test 04/30/19 04:00 04/30/19 06:20 Sodium Level 134 MMOL/L (136-145) L Potassium Level 4.1 MMOL/L (3.5-5.1) Chloride Level 94 MMOL/L (98-107) L Carbon Dioxide Level 29 MMOL/L (21-32) Anion Gap 11 mmol/L (5-15) Blood Urea Nitrogen 53 mg/dL (7-18) H Creatinine 10.3 MG/DL (0.55-1.30) H Estimat Glomerular Filtration Rate 6.4 mL/min (>60) Glucose Level 94 MG/DL (74-106) Calcium Level 10.3 MG/DL (8.5-10.1) H White Blood Count 3.0 K/UL (4.8-10.8) L Red Blood Count 4.80 M/UL (4.70-6.10) Hemoglobin 11.8 G/DL (14.2-18.0) L Hematocrit 38.7 % (42.0-52.0) L Mean Corpuscular Volume 81 FL (80-99) Mean Corpuscular Hemoglobin 24.6 PG (27.0-31.0) L Mean Corpuscular Hemoglobin Concent 30.5 G/DL (32.0-36.0) L Red Cell Distribution Width 18.9 % (11.6-14.8) H Platelet Count 124 K/UL (150-450) L Mean Platelet Volume 6.9 FL (6.5-10.1) Neutrophils (%) (Auto) % (45.0-75.0) Lymphocytes (%) (Auto) % (20.0-45.0) Monocytes (%) (Auto) % (1.0-10.0) Eosinophils (%) (Auto) % (0.0-3.0) Basophils (%) (Auto) % (0.0-2.0) Differential Total Cells Counted 100 Neutrophils % (Manual) 57 % (45-75) Lymphocytes % (Manual) 23 % (20-45) Monocytes % (Manual) 15 % (1-10) H Eosinophils % (Manual) 4 % (0-3) H Basophils % (Manual) 1 % (0-2) Band Neutrophils 0 % (0-8) Platelet Estimate Decreased L Platelet Morphology Normal Hypochromasia 1+ Anisocytosis 2+ Current Medications Medications (Trade) Dose Ordered Sig/Anum Route PRN Reason Start Time Stop Time Status Last Admin Dose Admin Acetaminophen (Tylenol) 650 mg Q4H PRN ORAL Prn Headache/Temp > 101 04/29/19 11:50 05/24/19 11:49 Dextrose (Dextrose 50%) 25 ml Q30M PRN IV Hypoglycemia 04/29/19 11:45 05/23/19 23:14 Dextrose (Dextrose 50%) 50 ml Q30M PRN IV Hypoglycemia 04/29/19 11:45 05/23/19 23:14 Diphenhydramine HCl (Benadryl) 25 mg DAILYPRN PRN IVP Give with dialysis treatments 04/29/19 12:03 05/24/19 12:02 04/29/19 12:17 Docusate Sodium (Colace) 100 mg THREE TIMES A DAY ORAL 04/29/19 13:00 05/24/19 12:59 04/30/19 13:25 Gabapentin (Neurontin) 300 mg BID ORAL 04/29/19 18:00 05/24/19 17:59 04/30/19 11:51 Hydralazine HCl (Apresoline) 10 mg Q4H PRN IV bp over 160 syst 04/29/19 13:00 05/24/19 12:59 Hydromorphone HCl (Dilaudid) 3 mg Q3H PRN IVP Severe Pain (Pain Scale 7-10) 04/29/19 11:50 05/02/19 11:49 04/30/19 12:42 Iopamidol (Isovue-300 100ml) 100 ml NOW PRN INJ Radiology Procedure 04/30/19 06:30 04/30/19 23:59 Lactulose (Cephulac) 20 gm THREE TIMES A DAY ORAL 04/29/19 13:00 05/25/19 17:59 04/30/19 13:26 Lorazepam (Ativan 2mg/ml 1ml) 0.5 mg Q6H PRN IV For Seizures 04/29/19 11:30 05/01/19 17:29 Metoprolol Tartrate (Lopressor) 12.5 mg Q12HR ORAL 04/29/19 21:00 05/26/19 08:59 04/30/19 09:07 Ondansetron HCl (Zofran) 4 mg Q6H PRN IVP Nausea & Vomiting 04/29/19 12:03 05/23/19 12:02 Pantoprazole (Protonix) 40 mg EVERY 12 HOURS ORAL 04/29/19 21:00 05/24/19 20:59 04/30/19 09:08 Patient Own Medication (Patient's Own Med) 1 ea BID ORAL 04/29/19 18:00 05/26/19 17:59 04/30/19 09:09 Patient Own Medication (Patient's Own Med) 1 ea DAILY ORAL 04/30/19 09:00 05/26/19 16:59 04/30/19 09:08 Patient Own Medication (Patient's Own Med) 1 ea DAILY ORAL 04/30/19 09:00 05/26/19 16:59 04/30/19 09:09 Polyethylene Glycol (Miralax) 17 gm DAILYPRN PRN ORAL Constipation 04/29/19 23:15 05/23/19 23:14 Pravastatin Sodium (Pravachol) 40 mg QHS ORAL 04/29/19 21:00 05/24/19 20:59 04/29/19 21:48 Sevelamer Carbonate (Renvela) 2,400 mg THREE TIMES A DAY ORAL 04/29/19 13:00 05/24/19 12:59 04/30/19 13:26 Temazepam (Restoril) 15 mg HSPRN PRN ORAL Insomnia 04/29/19 23:15 04/30/19 23:14 Sari Duncan M.D. Apr 30, 2019 14:39
--- NOTE | 2019-04-30 14:49 | Diagnostic Imaging Report ---
Clinical Indication: Cough with hemoptysis Technique: IV administration nonionic contrast. Spiral acquisition obtained through the chest. Multiplanar reconstructions generated. Total dose length product 791.37 mGycm. CTDIvol(s) 15.63 mGy. Dose reduction achieved using automated exposure control Comparison: 09/08/2008 Findings: Linear areas of scarring and/or atelectasis and possibly some scattered consolidative opacities are seen at the left lung base. Minimal atelectatic changes seen at the right lung base. Previously demonstrated pleural effusions are no longer evident. There is again demonstrated thickening of the major fissures bilaterally. There is minimal interstitial septal thickening demonstrated. The lungs and pleural spaces are otherwise clear. The heart is enlarged. There is minimal pericardial thickening versus fluid. Again demonstrated are prominent mediastinal nodes, with a precarinal node that measures up to 2.5 cm long axis dimension. This is similar to previous. Previously demonstrated mediastinal and edema has resolved. Interim placement of a HERO type dialysis graft, tip of which resides in the high right atrium. The esophagus is unremarkable. Prominent axillary lymph nodes appear similar to the previous study. The bones demonstrate diffuse sclerosis Included upper abdominal anatomy demonstrates trace ascites fluid. The kidneys demonstrate atrophy and multiple cysts. Impression: Bilateral left greater than right basilar atelectatic changes and possibly some consolidation at the left lung base. Mild interstitial prominence could reflect mild interstitial congestive changes Cardiomegaly Prominent/borderline enlarged mediastinal and bilateral axillary lymph nodes, appearing similar to prior exam of 09/08/2018, possibly baseline for this patient Nonspecific thickening of the pleura of the bilateral major fissures, suspect chronic HERO graft in place Minimal pericardial thickening versus fluid Trace ascites Bilateral renal atrophy, consistent with chronic renal disease. 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
[2019-04-30 16:00] VITALS: BP 124/75
--- NOTE | 2019-04-30 16:18 | Pulmonology Progress Note ---
Assessment/Plan Problems: (1) Hemoptysis (2) Fracture of head of right femur (3) Avascular necrosis of bone of hip (4) Atrial fibrillation (5) HIV (human immunodeficiency virus infection) (6) Hypertension (7) ESRD on hemodialysis (8) Anemia in chronic kidney disease (9) Seizure disorder (10) Coronary artery disease (11) Pancreatitis, chronic (12) Peripheral vascular disease Assessment/Plan pt needs elective arthroplasty all reviewed BP more stable now pain management HD access site needs to be changed symptomatic treatment f/u troponin Subjective ROS Limited/Unobtainable: No Constitutional: Reports: no symptoms HEENT: Repors: no symptoms Allergies: Coded Allergies: FLUTICASONE (Unverified Allergy, Unknown, 02/23/17) LEVOFLOXACIN (Unverified Allergy, Unknown, 08/22/14) MORPHINE (Unverified Allergy, Unknown, 02/23/17) Objective Last 24 Hour Vital Signs Date Time Temp Pulse Resp B/P (MAP) Pulse Ox O2 Delivery O2 Flow Rate FiO2 04/30/19 13:12 99.3 04/30/19 12:00 98.8 70 20 114/67 (83) 98 04/30/19 09:07 71 142/98 04/30/19 09:00 Room Air 04/30/19 08:00 99.3 71 20 142/98 (113) 98 04/30/19 04:00 98.4 75 18 129/71 (90) 97 04/30/19 00:00 97.5 78 18 134/79 (97) 98 04/29/19 21:47 67 127/75 04/29/19 21:00 Room Air 04/29/19 20:00 96.9 64 18 129/74 (92) 95 Intake and Output 04/29/19 04/30/19 19:00 07:00 Intake Total 120 ml Balance 120 ml Intake Oral 120 ml # Voids 1 Objective awake, comfortable General Appearance: WD/WN HEENT: normocephalic, atraumatic Respiratory/Chest: chest wall non-tender, lungs clear Breasts: no masses Cardiovascular: regular rhythm Abdomen: normal bowel sounds, soft, non tender Extremities: no cyanosis Skin: no rash Laboratory Tests 04/30/19 04:00: Sodium Level 134L, Potassium Level 4.1, Chloride Level 94L, Carbon Dioxide Level 29, Anion Gap 11, Blood Urea Nitrogen 53H, Creatinine 10.3H, Estimat Glomerular Filtration Rate 6.4, Glucose Level 94, Calcium Level 10.3H 04/30/19 06:20: White Blood Count 3.0L, Red Blood Count 4.80, Hemoglobin 11.8L, Hematocrit 38.7L , Mean Corpuscular Volume 81, Mean Corpuscular Hemoglobin 24.6L, Mean Corpuscular Hemoglobin Concent 30.5L, Red Cell Distribution Width 18.9H, Platelet Count 124L, Mean Platelet Volume 6.9, Neutrophils (%) (Auto) , Lymphocytes (%) (Auto) , Monocytes (%) (Auto) , Eosinophils (%) (Auto) , Basophils (%) (Auto) , Differential Total Cells Counted 100, Neutrophils % ( Manual) 57, Lymphocytes % (Manual) 23, Monocytes % (Manual) 15H, Eosinophils % ( Manual) 4H, Basophils % (Manual) 1, Band Neutrophils 0, Platelet Estimate DecreasedL, Platelet Morphology Normal, Hypochromasia 1+, Anisocytosis 2+ Current Medications Medications (Trade) Dose Ordered Sig/Anum Route PRN Reason Start Time Stop Time Status Last Admin Dose Admin Acetaminophen (Tylenol) 650 mg Q4H PRN ORAL Prn Headache/Temp > 101 04/29/19 11:50 05/24/19 11:49 Dextrose (Dextrose 50%) 25 ml Q30M PRN IV Hypoglycemia 04/29/19 11:45 05/23/19 23:14 Dextrose (Dextrose 50%) 50 ml Q30M PRN IV Hypoglycemia 04/29/19 11:45 05/23/19 23:14 Diphenhydramine HCl (Benadryl) 25 mg DAILYPRN PRN IVP Give with dialysis treatments 04/29/19 12:03 05/24/19 12:02 04/29/19 12:17 Docusate Sodium (Colace) 100 mg THREE TIMES A DAY ORAL 04/29/19 13:00 05/24/19 12:59 04/30/19 13:25 Gabapentin (Neurontin) 300 mg BID ORAL 04/29/19 18:00 05/24/19 17:59 04/30/19 11:51 Hydralazine HCl (Apresoline) 10 mg Q4H PRN IV bp over 160 syst 04/29/19 13:00 05/24/19 12:59 Hydromorphone HCl (Dilaudid) 3 mg Q3H PRN IVP Severe Pain (Pain Scale 7-10) 04/29/19 11:50 05/02/19 11:49 04/30/19 12:42 Iopamidol (Isovue-300 100ml) 100 ml NOW PRN INJ Radiology Procedure 04/30/19 06:30 04/30/19 23:59 Lactulose (Cephulac) 20 gm THREE TIMES A DAY ORAL 04/29/19 13:00 05/25/19 17:59 04/30/19 13:26 Lorazepam (Ativan 2mg/ml 1ml) 0.5 mg Q6H PRN IV For Seizures 04/29/19 11:30 05/01/19 17:29 Metoprolol Tartrate (Lopressor) 12.5 mg Q12HR ORAL 04/29/19 21:00 05/26/19 08:59 04/30/19 09:07 Ondansetron HCl (Zofran) 4 mg Q6H PRN IVP Nausea & Vomiting 04/29/19 12:03 05/23/19 12:02 Pantoprazole (Protonix) 40 mg EVERY 12 HOURS ORAL 04/29/19 21:00 05/24/19 20:59 04/30/19 09:08 Patient Own Medication (Patient's Own Med) 1 ea BID ORAL 04/29/19 18:00 05/26/19 17:59 04/30/19 09:09 Patient Own Medication (Patient's Own Med) 1 ea DAILY ORAL 04/30/19 09:00 05/26/19 16:59 04/30/19 09:08 Patient Own Medication (Patient's Own Med) 1 ea DAILY ORAL 04/30/19 09:00 05/26/19 16:59 04/30/19 09:09 Polyethylene Glycol (Miralax) 17 gm DAILYPRN PRN ORAL Constipation 04/29/19 23:15 05/23/19 23:14 Pravastatin Sodium (Pravachol) 40 mg QHS ORAL 04/29/19 21:00 05/24/19 20:59 04/29/19 21:48 Sevelamer Carbonate (Renvela) 2,400 mg THREE TIMES A DAY ORAL 04/29/19 13:00 05/24/19 12:59 04/30/19 13:26 Temazepam (Restoril) 15 mg HSPRN PRN ORAL Insomnia 04/29/19 23:15 04/30/19 23:14 Srinivasan Patterson MD Apr 30, 2019 16:18
--- NOTE | 2019-04-30 16:21 | Cardiac Electrophysiology PN ---
Assessment/Plan Assessment/Plan 1. Nonsustained ventricular tachycardia vs atrial fib with aberrancy. EF 45-50%. 2. Atrial fibrillation with bradycardia , better on metoprolol 12.5 bid On subcutaneous heparin but likely would need long-term oral anticoagulation like Eliquis after hip surgery 3. Troponin leak. Due to renal failure. No CP or SOB. 3. End-stage renal disease, on hemodialysis. Right femoral HD catheter needs to be removed before Hip surgery 4. Right hip pain due to avascular necrosis. Total hip arthroplasty at [facility] pending. Stable from cardiac stand point. No further cardiac testing needed prior to surgery LORENZA RN Subjective Subjective Off tele. No CP or SOB. HD pending tomorrow again Objective Last 24 Hour Vital Signs Date Time Temp Pulse Resp B/P (MAP) Pulse Ox O2 Delivery O2 Flow Rate FiO2 04/30/19 13:12 99.3 04/30/19 12:00 98.8 70 20 114/67 (83) 98 04/30/19 09:07 71 142/98 04/30/19 09:00 Room Air 04/30/19 08:00 99.3 71 20 142/98 (113) 98 04/30/19 04:00 98.4 75 18 129/71 (90) 97 04/30/19 00:00 97.5 78 18 134/79 (97) 98 04/29/19 21:47 67 127/75 04/29/19 21:00 Room Air 04/29/19 20:00 96.9 64 18 129/74 (92) 95 Intake and Output 04/29/19 04/30/19 19:00 07:00 Intake Total 120 ml Balance 120 ml Intake Oral 120 ml # Voids 1 Laboratory Tests Test 04/30/19 04:00 04/30/19 06:20 Sodium Level 134 MMOL/L (136-145) L Potassium Level 4.1 MMOL/L (3.5-5.1) Chloride Level 94 MMOL/L (98-107) L Carbon Dioxide Level 29 MMOL/L (21-32) Anion Gap 11 mmol/L (5-15) Blood Urea Nitrogen 53 mg/dL (7-18) H Creatinine 10.3 MG/DL (0.55-1.30) H Estimat Glomerular Filtration Rate 6.4 mL/min (>60) Glucose Level 94 MG/DL (74-106) Calcium Level 10.3 MG/DL (8.5-10.1) H White Blood Count 3.0 K/UL (4.8-10.8) L Red Blood Count 4.80 M/UL (4.70-6.10) Hemoglobin 11.8 G/DL (14.2-18.0) L Hematocrit 38.7 % (42.0-52.0) L Mean Corpuscular Volume 81 FL (80-99) Mean Corpuscular Hemoglobin 24.6 PG (27.0-31.0) L Mean Corpuscular Hemoglobin Concent 30.5 G/DL (32.0-36.0) L Red Cell Distribution Width 18.9 % (11.6-14.8) H Platelet Count 124 K/UL (150-450) L Mean Platelet Volume 6.9 FL (6.5-10.1) Neutrophils (%) (Auto) % (45.0-75.0) Lymphocytes (%) (Auto) % (20.0-45.0) Monocytes (%) (Auto) % (1.0-10.0) Eosinophils (%) (Auto) % (0.0-3.0) Basophils (%) (Auto) % (0.0-2.0) Differential Total Cells Counted 100 Neutrophils % (Manual) 57 % (45-75) Lymphocytes % (Manual) 23 % (20-45) Monocytes % (Manual) 15 % (1-10) H Eosinophils % (Manual) 4 % (0-3) H Basophils % (Manual) 1 % (0-2) Band Neutrophils 0 % (0-8) Platelet Estimate Decreased L Platelet Morphology Normal Hypochromasia 1+ Anisocytosis 2+ Objective HEAD AND NECK: No JVD. LUNGS: Decreased breath sounds. CARDIOVASCULAR: Irregular S1 and S2 with no murmur ABDOMEN: Soft. EXTREMITIES: Dialysis access in the right thigh. Heath Valencia MD Apr 30, 2019 16:21
--- NOTE | 2019-04-30 19:07 | Internal Med Progress Note ---
Subjective Date of Service: Apr 30, 2019 Physician Name Fabricio Guillory Attending Physician Nabeel Hoff MD Current Medications Medications (Trade) Dose Ordered Sig/Anum Route PRN Reason Start Time Stop Time Status Last Admin Dose Admin Acetaminophen (Tylenol) 650 mg Q4H PRN ORAL Prn Headache/Temp > 101 04/29/19 11:50 05/24/19 11:49 Dextrose (Dextrose 50%) 25 ml Q30M PRN IV Hypoglycemia 04/29/19 11:45 05/23/19 23:14 Dextrose (Dextrose 50%) 50 ml Q30M PRN IV Hypoglycemia 04/29/19 11:45 05/23/19 23:14 Diphenhydramine HCl (Benadryl) 25 mg DAILYPRN PRN IVP Give with dialysis treatments 04/29/19 12:03 05/24/19 12:02 04/29/19 12:17 Docusate Sodium (Colace) 100 mg THREE TIMES A DAY ORAL 04/29/19 13:00 05/24/19 12:59 04/30/19 17:43 Gabapentin (Neurontin) 300 mg BID ORAL 04/29/19 18:00 05/24/19 17:59 04/30/19 17:43 Hydralazine HCl (Apresoline) 10 mg Q4H PRN IV bp over 160 syst 04/29/19 13:00 05/24/19 12:59 Hydromorphone HCl (Dilaudid) 3 mg Q3H PRN IVP Severe Pain (Pain Scale 7-10) 04/29/19 11:50 05/02/19 11:49 04/30/19 17:45 Iopamidol (Isovue-300 100ml) 100 ml NOW PRN INJ Radiology Procedure 04/30/19 06:30 04/30/19 23:59 Lactulose (Cephulac) 20 gm THREE TIMES A DAY ORAL 04/29/19 13:00 05/25/19 17:59 04/30/19 17:43 Lorazepam (Ativan 2mg/ml 1ml) 0.5 mg Q6H PRN IV For Seizures 04/29/19 11:30 05/01/19 17:29 Metoprolol Tartrate (Lopressor) 12.5 mg Q12HR ORAL 04/29/19 21:00 05/26/19 08:59 04/30/19 09:07 Ondansetron HCl (Zofran) 4 mg Q6H PRN IVP Nausea & Vomiting 04/29/19 12:03 05/23/19 12:02 Pantoprazole (Protonix) 40 mg EVERY 12 HOURS ORAL 04/29/19 21:00 05/24/19 20:59 04/30/19 09:08 Patient Own Medication (Patient's Own Med) 1 ea BID ORAL 04/29/19 18:00 05/26/19 17:59 04/30/19 17:44 Patient Own Medication (Patient's Own Med) 1 ea DAILY ORAL 04/30/19 09:00 05/26/19 16:59 04/30/19 09:08 Patient Own Medication (Patient's Own Med) 1 ea DAILY ORAL 04/30/19 09:00 05/26/19 16:59 04/30/19 09:09 Polyethylene Glycol (Miralax) 17 gm DAILYPRN PRN ORAL Constipation 04/29/19 23:15 05/23/19 23:14 Pravastatin Sodium (Pravachol) 40 mg QHS ORAL 04/29/19 21:00 05/24/19 20:59 04/29/19 21:48 Sevelamer Carbonate (Renvela) 2,400 mg THREE TIMES A DAY ORAL 04/29/19 13:00 05/24/19 12:59 04/30/19 17:43 Temazepam (Restoril) 15 mg HSPRN PRN ORAL Insomnia 04/29/19 23:15 04/30/19 23:14 Allergies: Coded Allergies: FLUTICASONE (Unverified Allergy, Unknown, 02/23/17) LEVOFLOXACIN (Unverified Allergy, Unknown, 08/22/14) MORPHINE (Unverified Allergy, Unknown, 02/23/17) ROS Limited/Unobtainable: No Constitutional: Reports: no symptoms HEENT: Reports: no symptoms Cardiovascular: Reports: no symptoms Respiratory: Reports: no symptoms Gastrointestinal/Abdominal: Reports: no symptoms Genitourinary: Reports: no symptoms Neurologic/Psychiatric: Reports: no symptoms Subjective 53 YO M admitted with right hip pain. Now avascular necrosis right femoral head. Cover for Int Med-Dr Hoff. Await transfer to [facility] Objective Last Vital Signs Date Time Temp Pulse Resp B/P (MAP) Pulse Ox O2 Delivery O2 Flow Rate FiO2 04/30/19 16:00 99.0 70 20 124/75 (91) 98 04/30/19 09:00 Room Air 04/28/19 21:05 21 04/27/19 20:00 2.0 Laboratory Tests Test 04/30/19 04:00 04/30/19 06:20 Sodium Level 134 MMOL/L (136-145) L Potassium Level 4.1 MMOL/L (3.5-5.1) Chloride Level 94 MMOL/L (98-107) L Carbon Dioxide Level 29 MMOL/L (21-32) Anion Gap 11 mmol/L (5-15) Blood Urea Nitrogen 53 mg/dL (7-18) H Creatinine 10.3 MG/DL (0.55-1.30) H Estimat Glomerular Filtration Rate 6.4 mL/min (>60) Glucose Level 94 MG/DL (74-106) Calcium Level 10.3 MG/DL (8.5-10.1) H White Blood Count 3.0 K/UL (4.8-10.8) L Red Blood Count 4.80 M/UL (4.70-6.10) Hemoglobin 11.8 G/DL (14.2-18.0) L Hematocrit 38.7 % (42.0-52.0) L Mean Corpuscular Volume 81 FL (80-99) Mean Corpuscular Hemoglobin 24.6 PG (27.0-31.0) L Mean Corpuscular Hemoglobin Concent 30.5 G/DL (32.0-36.0) L Red Cell Distribution Width 18.9 % (11.6-14.8) H Platelet Count 124 K/UL (150-450) L Mean Platelet Volume 6.9 FL (6.5-10.1) Neutrophils (%) (Auto) % (45.0-75.0) Lymphocytes (%) (Auto) % (20.0-45.0) Monocytes (%) (Auto) % (1.0-10.0) Eosinophils (%) (Auto) % (0.0-3.0) Basophils (%) (Auto) % (0.0-2.0) Differential Total Cells Counted 100 Neutrophils % (Manual) 57 % (45-75) Lymphocytes % (Manual) 23 % (20-45) Monocytes % (Manual) 15 % (1-10) H Eosinophils % (Manual) 4 % (0-3) H Basophils % (Manual) 1 % (0-2) Band Neutrophils 0 % (0-8) Platelet Estimate Decreased L Platelet Morphology Normal Hypochromasia 1+ Anisocytosis 2+ Intake and Output 04/29/19 04/30/19 19:00 07:00 Intake Total 120 ml Balance 120 ml Intake Oral 120 ml # Voids 1 Objective PHYSICAL EXAMINATION: GENERAL: The patient is well-developed and well-nourished male, in no apparent distress. HEENT: Eyes, pupils are equal and responsive to light and accommodation. Extraocular movements are intact. NECK: Supple. No lymphadenopathy. CHEST: Lungs are clear to auscultation bilaterally without wheezes or rales. CARDIOVASCULAR: Regular rhythm and rate. S1 and S2 normal without murmurs, rubs, or gallops. ABDOMEN: Soft, nontender, and nondistended. Positive bowel sounds. No evidence of hepatosplenomegaly. Currently, no rebound or guarding noted. EXTREMITIES: Negative for clubbing, cyanosis, or edema. RECTAL/GENITAL: Refused. NEUROLOGIC: Cranial nerves II through XII are grossly intact without focal deficits. Motor strength is 5/5 bilaterally. Deep tendon reflexes are 2+ plantar. Assessment/Plan Assessment/Plan ASSESSMENT: This is a 53-year-old, male. 1. ?Fracture of the right femoral head? 2. Avascular necrosis of the right femoral head. 3. Human immunodeficiency virus. 4. End-stage renal disease. 5. Atrial fibrillation. 6. Hypertension. 7. Coronary artery disease. 8. History of deep venous thrombosis. TREATMENT: 1.Avascular necrosis of the right femoral head. An Orthopedic consultation has been obtained with Dr. Mannie Rogers-see consult note. An MRI o fthe right hip inconclusive to confirm fracture. The patient has been cleared by cardiology for surgery-see note. 2. Human immunodeficiency virus. Continue HAART medications as above. 4. End-stage renal disease. Nephrology consultation obtained with Dr. Thomas. The patient is S/P dialysis on April 29, 2019. 5. Atrial fibrillation. A Cardiology consultation has been obtained with Dr. Heath Valencia. 6. Hypertension. Continue atenolol as above. 7. Coronary artery disease. As above, a Cardiology consultation has been obtained with Dr. Heath Valencia. 8. History of deep venous thrombosis. 9. Discussed with Ortho-Dr Rogers-right hip replacement "too complicated" for [facility]-transfer to [facility] Fabricio Guillory MD Apr 30, 2019 19:07
--- NOTE | 2019-04-30 19:42 | NUR ---
NURSE NOTES: Received patient in bed from [facility]. AAO x 4. On room air. Perma cath on R leg is intact and patent. No pain and no acute distress noted at this time. IV is intact and patent. Bed locked, lowest position, alarm on, call light within reach. Will continue to monitor.
--- NOTE | 2019-04-30 19:52 | NUR ---
HAND-OFF: Report given to JEFRY Rodríguez.
[2019-04-30 20:00] VITALS: BP 129/69
[2019-05-01] VITALS: BP 130/64
[2019-05-01 04:00] VITALS: BP 101/65
--- NOTE | 2019-05-01 04:00 | NUR ---
NURSE NOTES: Received call from [facility]. Still awaiting for financial approval and vidal CARBAJAL.
--- NOTE | 2019-05-01 07:37 | NUR ---
HAND-OFF: Report given to Penny CAPPS.
[2019-05-01 07:41] LABS: HEMATOCRIT 38.8 % (42.0-52.0); HEMOGLOBIN 11.7 G/DL (14.2-18.0); MEAN CORPUSCULAR VOLUME 80 FL (80-99); PLATELET COUNT 77 K/UL (150-450); RED BLOOD COUNT 4.86 M/UL (4.70-6.10); RED CELL DISTRIBUTION WIDTH 18.6 % (11.6-14.8); WHITE BLOOD COUNT 3.4 K/UL (4.8-10.8)
[2019-05-01 08:00] VITALS: BP 138/76
--- NOTE | 2019-05-01 08:01 | NUR ---
Nurse Notes Handoff received from JEFRY Willis. Patient lying in bed, stable. Bed is locked and in lowest position. IV site is clean, dry and intact.
[2019-05-01 08:02] LABS: ALANINE AMINOTRANSFERASE 24 U/L (12-78); ALBUMIN 2.6 G/DL (3.4-5.0); ALBUMIN/GLOBULIN RATIO 0.5 (1.0-2.7); ALKALINE PHOSPHATASE 56 U/L (46-116); ANION GAP 16 mmol/L (5-15); ASPARTATE AMINO TRANSFERASE 42 U/L (15-37); BILIRUBIN,TOTAL 0.6 MG/DL (0.2-1.0); BLOOD UREA NITROGEN 64 mg/dL (7-18); CALCIUM 10.3 MG/DL (8.5-10.1); CARBON DIOXIDE 23 MMOL/L (21-32); CHLORIDE 94 MMOL/L (98-107); PHOSPHORUS 8.8 MG/DL (2.5-4.9); POTASSIUM 5.2 MMOL/L (3.5-5.1); SODIUM 133 MMOL/L (136-145)
[2019-05-01] MEDS: Metoprolol Tartrate 12.5mg TAB ORAL SCH ×2 (09:00→20:18)
[2019-05-01] MEDS: Docusate 100mg cap ORAL SCH ×3 (10:26→18:22)
[2019-05-01] MEDS: Lactulose 20gm/30ml UDC ORAL SCH ×3 (10:29→18:22)
[2019-05-01 12:00] VITALS: BP 137/77
--- NOTE | 2019-05-01 12:07 | NUR ---
DISCHARGE/TRANSFER: NOTE PER ANUSHA PATIENT HAS BEEN FINANCIALLY CLEARED. ADDITIONAL CLINICALS FAXED TO [facility]. [facility] IS AT CAPACITY AT THIS TIME. T [phone]
--- NOTE | 2019-05-01 12:15 | NUR ---
RD ASSESSMENT & RECOMMENDATIONS SEE CARE ACTIVITY FOR COMPLETE ASSESSMENT DAILY ESTIMATED NEEDS: Needs based on ESRD on HD, HIV, 87kg 30-35 kcals/kg [id number] total kcals 1.2-1.8 g protein/kg 104-157 g total protein Per MD, on HD mL/kg total fluid mLs NUTRITION DIAGNOSIS: 1) Increased KCAL and protein needs R/T renal dysfunction, infection, as evidenced by pt w/ ESRD on HD, HIV+. CURRENT DIET:RENAL PO DIET RECOMMENDATIONS: RENAL W/ DOUBLE PROTEIN + NEPRO daily + Snacks BID ADDITIONAL RECOMMENDATIONS: * Rec high prot snacks in between meals * Nepro 1 tetra mana daily: increase if w/ good acceptance * Standing or calibrated bedscale wt post HD * Consider wound eval : wound photo noted * Monitor PO intake closely, encourage PO intake -> variable PO
--- NOTE | 2019-05-01 12:34 | Infectious Diseases Prog Note ---
Assessment/Plan Assessment/Plan Assessment: R femoral avascular necrosis -MRI HIp: AVN of the right hip with subchondral signal abnormality. The study is significantly degraded by motion. -CT hip: Evidence of avascular necrosis of the right hip with subchondral fractures and moderate arthrosis. Renal osteodystrophy. Other findings as above Afebrile Pancytopenia Hemoptysis x1 -CT chest: Bilateral left greater than right basilar atelectatic changes and possibly some consolidation at the left lung base. Mild interstitial prominence could reflect mild interstitial congestive changes. Cardiomegaly. Prominent/ borderline enlarged mediastinal and bilateral axillary lymph nodes, appearing similar to prior exam of 09/08/2018, possibly baseline for this patient. Nonspecific thickening of the pleura of the bilateral major fissures, suspect chronic. HERO graft in place Minimal pericardial thickening versus fluid. Trace ascites. Bilateral renal atrophy, consistent with chronic renal disease. 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 Diffuse osteosclerosis, probably secondary to renal osteodystrophy HIV dx 1994- on ARV -03/2019: CD4 226 (28.1%), VL p -12/2017: VL 460; CD4 133 (2014) HLD Asthma HTN GERD CAD PVD -s/p L 3rd and 4th toe amputation chronic L 2nd toe OM s/p tx 12/2017 hx pericardial effusion ESRD on HD TTSat w/ thrombose R upper arm AV graft, on kidney transplant list Seizure disorder syncope s/p cholecystectomy s/p appendectomy s/p lumbar laminectomy, Plan: -Continue to monitor off systemic antibiotics -Continue ARV: Prezista, Norvir, Isentress -f/u cx -Monitor CBC/CMP, temperatures -Ortho f/u- plan to transfer to [facility] Thank you for this consultation. Will continue to follow along with you. Discussed with RN. Subjective Allergies: Coded Allergies: FLUTICASONE (Unverified Allergy, Unknown, 02/23/17) LEVOFLOXACIN (Unverified Allergy, Unknown, 08/22/14) MORPHINE (Unverified Allergy, Unknown, 02/23/17) Subjective afebrile no leukocytosis Objective Vital Signs Last 24 Hour Vital Signs Date Time Temp Pulse Resp B/P (MAP) Pulse Ox O2 Delivery O2 Flow Rate FiO2 05/01/19 09:00 Room Air 05/01/19 08:00 96.8 66 18 138/76 (96) 94 05/01/19 04:00 98.6 89 18 101/65 (77) 94 05/01/19 00:00 98.1 66 18 130/64 (86) 97 04/30/19 21:00 Room Air 04/30/19 20:20 65 124/69 04/30/19 20:00 99.0 65 18 129/69 (89) 95 04/30/19 18:15 99.3 04/30/19 16:00 99.0 70 20 124/75 (91) 98 Height (Feet): 6 Height (Inches): 3.00 Weight (Pounds): 189 Objective GENERAL: The patient is well-developed and well-nourished male, in no apparent distress. HEENT: Eyes, pupils are equal and responsive to light and accommodation. Extraocular movements are intact. NECK: Supple. No lymphadenopathy. CHEST: Lungs are clear to auscultation bilaterally without wheezes or rales. CARDIOVASCULAR: Regular rhythm and rate. S1 and S2 normal without murmurs, rubs, or gallops. ABDOMEN: Soft, nontender, and nondistended. Positive bowel sounds. No evidence of hepatosplenomegaly. Currently, no rebound or guarding noted. EXTREMITIES: Negative for clubbing, cyanosis, or edema. NEUROLOGIC: Cranial nerves II through XII are grossly intact without focal deficits. Motor strength is 5/5 bilaterally. Deep tendon reflexes are 2+ plantar Laboratory Tests Test 05/01/19 07:01 White Blood Count 3.4 K/UL (4.8-10.8) L Red Blood Count 4.86 M/UL (4.70-6.10) Hemoglobin 11.7 G/DL (14.2-18.0) L Hematocrit 38.8 % (42.0-52.0) L Mean Corpuscular Volume 80 FL (80-99) Mean Corpuscular Hemoglobin 24.0 PG (27.0-31.0) L Mean Corpuscular Hemoglobin Concent 30.1 G/DL (32.0-36.0) L Red Cell Distribution Width 18.6 % (11.6-14.8) H Platelet Count 77 K/UL (150-450) L Mean Platelet Volume 7.2 FL (6.5-10.1) Neutrophils (%) (Auto) % (45.0-75.0) Lymphocytes (%) (Auto) % (20.0-45.0) Monocytes (%) (Auto) % (1.0-10.0) Eosinophils (%) (Auto) % (0.0-3.0) Basophils (%) (Auto) % (0.0-2.0) Differential Total Cells Counted 100 Neutrophils % (Manual) 55 % (45-75) Lymphocytes % (Manual) 23 % (20-45) Monocytes % (Manual) 16 % (1-10) H Eosinophils % (Manual) 5 % (0-3) H Basophils % (Manual) 1 % (0-2) Band Neutrophils 0 % (0-8) Platelet Estimate Decreased L Platelet Morphology Normal Anisocytosis 2+ Sodium Level 133 MMOL/L (136-145) L Potassium Level 5.2 MMOL/L (3.5-5.1) H Chloride Level 94 MMOL/L (98-107) L Carbon Dioxide Level 23 MMOL/L (21-32) Anion Gap 16 mmol/L (5-15) H Blood Urea Nitrogen 64 mg/dL (7-18) H Creatinine 12.0 MG/DL (0.55-1.30) H Estimat Glomerular Filtration Rate 5.3 mL/min (>60) Glucose Level 84 MG/DL (74-106) Calcium Level 10.3 MG/DL (8.5-10.1) H Phosphorus Level 8.8 MG/DL (2.5-4.9) H Magnesium Level 2.2 MG/DL (1.8-2.4) Total Bilirubin 0.6 MG/DL (0.2-1.0) Aspartate Amino Transf (AST/SGOT) 42 U/L (15-37) H Alanine Aminotransferase (ALT/SGPT) 24 U/L (12-78) Alkaline Phosphatase 56 U/L (46-116) Total Protein 8.2 G/DL (6.4-8.2) Albumin 2.6 G/DL (3.4-5.0) L Globulin 5.6 g/dL Albumin/Globulin Ratio 0.5 (1.0-2.7) L Current Medications Medications (Trade) Dose Ordered Sig/Anum Route PRN Reason Start Time Stop Time Status Last Admin Dose Admin Acetaminophen (Tylenol) 650 mg Q4H PRN ORAL Prn Headache/Temp > 101 04/29/19 11:50 05/24/19 11:49 Dextrose (Dextrose 50%) 25 ml Q30M PRN IV Hypoglycemia 04/29/19 11:45 05/23/19 23:14 Dextrose (Dextrose 50%) 50 ml Q30M PRN IV Hypoglycemia 04/29/19 11:45 05/23/19 23:14 Diphenhydramine HCl (Benadryl) 25 mg DAILYPRN PRN IVP Give with dialysis treatments 04/29/19 12:03 05/24/19 12:02 04/29/19 12:17 Docusate Sodium (Colace) 100 mg THREE TIMES A DAY ORAL 04/29/19 13:00 05/24/19 12:59 05/01/19 10:26 Gabapentin (Neurontin) 300 mg BID ORAL 04/29/19 18:00 05/24/19 17:59 05/01/19 10:26 Hydralazine HCl (Apresoline) 10 mg Q4H PRN IV bp over 160 syst 04/29/19 13:00 05/24/19 12:59 Hydromorphone HCl (Dilaudid) 3 mg Q3H PRN IVP Severe Pain (Pain Scale 7-10) 04/29/19 11:50 05/02/19 11:49 05/01/19 10:46 Lactulose (Cephulac) 20 gm THREE TIMES A DAY ORAL 04/29/19 13:00 05/25/19 17:59 05/01/19 10:29 Lorazepam (Ativan 2mg/ml 1ml) 0.5 mg Q6H PRN IV For Seizures 04/29/19 11:30 05/01/19 17:29 Metoprolol Tartrate (Lopressor) 12.5 mg Q12HR ORAL 04/29/19 21:00 05/26/19 08:59 04/30/19 20:20 Ondansetron HCl (Zofran) 4 mg Q6H PRN IVP Nausea & Vomiting 04/29/19 12:03 05/23/19 12:02 Pantoprazole (Protonix) 40 mg EVERY 12 HOURS ORAL 04/29/19 21:00 05/24/19 20:59 05/01/19 10:26 Patient Own Medication (Patient's Own Med) 1 ea BID ORAL 04/29/19 18:00 05/26/19 17:59 05/01/19 10:27 Patient Own Medication (Patient's Own Med) 1 ea DAILY ORAL 04/30/19 09:00 05/26/19 16:59 05/01/19 10:28 Patient Own Medication (Patient's Own Med) 1 ea DAILY ORAL 04/30/19 09:00 05/26/19 16:59 05/01/19 10:28 Polyethylene Glycol (Miralax) 17 gm DAILYPRN PRN ORAL Constipation 04/29/19 23:15 05/23/19 23:14 Pravastatin Sodium (Pravachol) 40 mg QHS ORAL 04/29/19 21:00 05/24/19 20:59 04/30/19 20:19 Sevelamer Carbonate (Renvela) 2,400 mg THREE TIMES A DAY ORAL 04/29/19 13:00 05/24/19 12:59 05/01/19 10:27 Sari Duncan M.D. May 01, 2019 12:34
[2019-05-01] MEDS: DiphenhydrAMINE 50mg/ml Inj IVP PRN (14:09)
--- NOTE | 2019-05-01 14:20 | Pulmonology Progress Note ---
Assessment/Plan Problems: (1) Hemoptysis (2) Fracture of head of right femur (3) Avascular necrosis of bone of hip (4) Atrial fibrillation (5) HIV (human immunodeficiency virus infection) (6) Hypertension (7) ESRD on hemodialysis (8) Anemia in chronic kidney disease (9) Seizure disorder (10) Coronary artery disease (11) Pancreatitis, chronic (12) Peripheral vascular disease Assessment/Plan all reviewed pt needs elective arthroplasty all reviewed BP more stable now pain management HD access site needs to be changed symptomatic treatment f/u troponin Subjective ROS Limited/Unobtainable: No Constitutional: Reports: no symptoms HEENT: Repors: no symptoms Allergies: Coded Allergies: FLUTICASONE (Unverified Allergy, Unknown, 02/23/17) LEVOFLOXACIN (Unverified Allergy, Unknown, 08/22/14) MORPHINE (Unverified Allergy, Unknown, 02/23/17) Objective Last 24 Hour Vital Signs Date Time Temp Pulse Resp B/P (MAP) Pulse Ox O2 Delivery O2 Flow Rate FiO2 05/01/19 12:00 96.9 62 18 137/77 (97) 93 05/01/19 09:00 Room Air 05/01/19 08:00 96.8 66 18 138/76 (96) 94 05/01/19 04:00 98.6 89 18 101/65 (77) 94 05/01/19 00:00 98.1 66 18 130/64 (86) 97 04/30/19 21:00 Room Air 04/30/19 20:20 65 124/69 04/30/19 20:00 99.0 65 18 129/69 (89) 95 04/30/19 18:15 99.3 04/30/19 16:00 99.0 70 20 124/75 (91) 98 Intake and Output 04/30/19 05/01/19 19:00 07:00 Intake Total 600 ml 50 ml Balance 600 ml 50 ml Intake Oral 600 ml 50 ml Objective awake, comfortable General Appearance: WD/WN HEENT: normocephalic, atraumatic Respiratory/Chest: chest wall non-tender, lungs clear Breasts: no masses Cardiovascular: regular rhythm Abdomen: normal bowel sounds, soft, non tender Extremities: no cyanosis Skin: no rash Laboratory Tests 05/01/19 07:01: White Blood Count 3.4L, Red Blood Count 4.86, Hemoglobin 11.7L, Hematocrit 38.8L , Mean Corpuscular Volume 80, Mean Corpuscular Hemoglobin 24.0L, Mean Corpuscular Hemoglobin Concent 30.1L, Red Cell Distribution Width 18.6H, Platelet Count 77L, Mean Platelet Volume 7.2, Neutrophils (%) (Auto) , Lymphocytes (%) (Auto) , Monocytes (%) (Auto) , Eosinophils (%) (Auto) , Basophils (%) (Auto) , Differential Total Cells Counted 100, Neutrophils % ( Manual) 55, Lymphocytes % (Manual) 23, Monocytes % (Manual) 16H, Eosinophils % ( Manual) 5H, Basophils % (Manual) 1, Band Neutrophils 0, Platelet Estimate DecreasedL, Platelet Morphology Normal, Anisocytosis 2+, Sodium Level 133L, Potassium Level 5.2H, Chloride Level 94L, Carbon Dioxide Level 23, Anion Gap 16H , Blood Urea Nitrogen 64H, Creatinine 12.0H, Estimat Glomerular Filtration Rate 5.3, Glucose Level 84, Calcium Level 10.3H, Phosphorus Level 8.8H, Magnesium Level 2.2, Total Bilirubin 0.6, Aspartate Amino Transf (AST/SGOT) 42H, Alanine Aminotransferase (ALT/SGPT) 24, Alkaline Phosphatase 56, Total Protein 8.2, Albumin 2.6L, Globulin 5.6, Albumin/Globulin Ratio 0.5L Current Medications Medications (Trade) Dose Ordered Sig/Anum Route PRN Reason Start Time Stop Time Status Last Admin Dose Admin Acetaminophen (Tylenol) 650 mg Q4H PRN ORAL Prn Headache/Temp > 101 04/29/19 11:50 05/24/19 11:49 Dextrose (Dextrose 50%) 25 ml Q30M PRN IV Hypoglycemia 04/29/19 11:45 05/23/19 23:14 Dextrose (Dextrose 50%) 50 ml Q30M PRN IV Hypoglycemia 04/29/19 11:45 05/23/19 23:14 Diphenhydramine HCl (Benadryl) 25 mg DAILYPRN PRN IVP Give with dialysis treatments 04/29/19 12:03 05/24/19 12:02 05/01/19 14:09 Docusate Sodium (Colace) 100 mg THREE TIMES A DAY ORAL 04/29/19 13:00 05/24/19 12:59 05/01/19 10:26 Gabapentin (Neurontin) 300 mg BID ORAL 04/29/19 18:00 05/24/19 17:59 05/01/19 10:26 Hydralazine HCl (Apresoline) 10 mg Q4H PRN IV bp over 160 syst 04/29/19 13:00 05/24/19 12:59 Hydromorphone HCl (Dilaudid) 3 mg Q3H PRN IVP Severe Pain (Pain Scale 7-10) 04/29/19 11:50 05/02/19 11:49 05/01/19 10:46 Lactulose (Cephulac) 20 gm THREE TIMES A DAY ORAL 04/29/19 13:00 05/25/19 17:59 05/01/19 10:29 Lorazepam (Ativan 2mg/ml 1ml) 0.5 mg Q6H PRN IV For Seizures 04/29/19 11:30 05/01/19 17:29 Metoprolol Tartrate (Lopressor) 12.5 mg Q12HR ORAL 04/29/19 21:00 05/26/19 08:59 04/30/19 20:20 Ondansetron HCl (Zofran) 4 mg Q6H PRN IVP Nausea & Vomiting 04/29/19 12:03 05/23/19 12:02 Pantoprazole (Protonix) 40 mg EVERY 12 HOURS ORAL 04/29/19 21:00 05/24/19 20:59 05/01/19 10:26 Patient Own Medication (Patient's Own Med) 1 ea BID ORAL 04/29/19 18:00 05/26/19 17:59 05/01/19 10:27 Patient Own Medication (Patient's Own Med) 1 ea DAILY ORAL 04/30/19 09:00 05/26/19 16:59 05/01/19 10:28 Patient Own Medication (Patient's Own Med) 1 ea DAILY ORAL 04/30/19 09:00 05/26/19 16:59 05/01/19 10:28 Polyethylene Glycol (Miralax) 17 gm DAILYPRN PRN ORAL Constipation 04/29/19 23:15 05/23/19 23:14 Pravastatin Sodium (Pravachol) 40 mg QHS ORAL 04/29/19 21:00 05/24/19 20:59 04/30/19 20:19 Sevelamer Carbonate (Renvela) 2,400 mg THREE TIMES A DAY ORAL 04/29/19 13:00 05/24/19 12:59 05/01/19 10:27 Srinivasan Patterson MD May 01, 2019 14:20
--- NOTE | 2019-05-01 15:00 | NUR ---
SS note Chart reviewed; no SW needs identified at this time. Pending bed at [facility] at this time.
--- NOTE | 2019-05-01 15:02 | Nephrology Progress Note ---
Assessment/Plan Problem List: (1) ESRD on hemodialysis (2) Peripheral vascular disease (3) HIV (human immunodeficiency virus infection) (4) Coronary artery disease (5) Atrial fibrillation Assessment Right Hip Fx- Renal Osteo Dystrophy ESRD, High K of 6.2 HTN of CKD Asthma At Fib CAD PVD HIV Disease Sz disorder Plan Plan: HD next 05/01 BP control pain management phos binders lactulose ortho eval suggestions noted per orders ? DC / Transfer Subjective ROS Limited/Unobtainable: No Constitutional: Reports: malaise, weakness Objective Objective Last 24 Hour Vital Signs Date Time Temp Pulse Resp B/P (MAP) Pulse Ox O2 Delivery O2 Flow Rate FiO2 05/01/19 12:00 96.9 62 18 137/77 (97) 93 05/01/19 09:00 Room Air 05/01/19 08:00 96.8 66 18 138/76 (96) 94 05/01/19 04:00 98.6 89 18 101/65 (77) 94 05/01/19 00:00 98.1 66 18 130/64 (86) 97 04/30/19 21:00 Room Air 04/30/19 20:20 65 124/69 04/30/19 20:00 99.0 65 18 129/69 (89) 95 04/30/19 18:15 99.3 04/30/19 16:00 99.0 70 20 124/75 (91) 98 Intake and Output 04/30/19 05/01/19 19:00 07:00 Intake Total 600 ml 50 ml Balance 600 ml 50 ml Intake Oral 600 ml 50 ml Laboratory Tests 05/01/19 07:01: White Blood Count 3.4L, Red Blood Count 4.86, Hemoglobin 11.7L, Hematocrit 38.8L , Mean Corpuscular Volume 80, Mean Corpuscular Hemoglobin 24.0L, Mean Corpuscular Hemoglobin Concent 30.1L, Red Cell Distribution Width 18.6H, Platelet Count 77L, Mean Platelet Volume 7.2, Neutrophils (%) (Auto) , Lymphocytes (%) (Auto) , Monocytes (%) (Auto) , Eosinophils (%) (Auto) , Basophils (%) (Auto) , Differential Total Cells Counted 100, Neutrophils % ( Manual) 55, Lymphocytes % (Manual) 23, Monocytes % (Manual) 16H, Eosinophils % ( Manual) 5H, Basophils % (Manual) 1, Band Neutrophils 0, Platelet Estimate DecreasedL, Platelet Morphology Normal, Anisocytosis 2+, Sodium Level 133L, Potassium Level 5.2H, Chloride Level 94L, Carbon Dioxide Level 23, Anion Gap 16H , Blood Urea Nitrogen 64H, Creatinine 12.0H, Estimat Glomerular Filtration Rate 5.3, Glucose Level 84, Calcium Level 10.3H, Phosphorus Level 8.8H, Magnesium Level 2.2, Total Bilirubin 0.6, Aspartate Amino Transf (AST/SGOT) 42H, Alanine Aminotransferase (ALT/SGPT) 24, Alkaline Phosphatase 56, Total Protein 8.2, Albumin 2.6L, Globulin 5.6, Albumin/Globulin Ratio 0.5L Height (Feet): 6 Height (Inches): 3.00 Weight (Pounds): 189 General Appearance: no apparent distress Cardiovascular: normal rate Respiratory/Chest: lungs clear Abdomen: soft, distended Objective no change Perfecto Thomas MD May 01, 2019 15:02
[2019-05-01 16:00] VITALS: BP 122/69
--- NOTE | 2019-05-01 17:47 | Internal Med Progress Note ---
Subjective Date of Service: May 01, 2019 Physician Name Fabricio Guillory Attending Physician Nabeel Hoff MD Current Medications Medications (Trade) Dose Ordered Sig/Anum Route PRN Reason Start Time Stop Time Status Last Admin Dose Admin Acetaminophen (Tylenol) 650 mg Q4H PRN ORAL Prn Headache/Temp > 101 04/29/19 11:50 05/24/19 11:49 Dextrose (Dextrose 50%) 25 ml Q30M PRN IV Hypoglycemia 04/29/19 11:45 05/23/19 23:14 Dextrose (Dextrose 50%) 50 ml Q30M PRN IV Hypoglycemia 04/29/19 11:45 05/23/19 23:14 Diphenhydramine HCl (Benadryl) 25 mg DAILYPRN PRN IVP Give with dialysis treatments 04/29/19 12:03 05/24/19 12:02 05/01/19 14:09 Docusate Sodium (Colace) 100 mg THREE TIMES A DAY ORAL 04/29/19 13:00 05/24/19 12:59 05/01/19 10:26 Gabapentin (Neurontin) 300 mg BID ORAL 04/29/19 18:00 05/24/19 17:59 05/01/19 10:26 Hydralazine HCl (Apresoline) 10 mg Q4H PRN IV bp over 160 syst 04/29/19 13:00 05/24/19 12:59 Hydromorphone HCl (Dilaudid) 3 mg Q3H PRN IVP Severe Pain (Pain Scale 7-10) 04/29/19 11:50 05/02/19 11:49 05/01/19 15:32 Lactulose (Cephulac) 20 gm THREE TIMES A DAY ORAL 04/29/19 13:00 05/25/19 17:59 05/01/19 10:29 Metoprolol Tartrate (Lopressor) 12.5 mg Q12HR ORAL 04/29/19 21:00 05/26/19 08:59 04/30/19 20:20 Ondansetron HCl (Zofran) 4 mg Q6H PRN IVP Nausea & Vomiting 04/29/19 12:03 05/23/19 12:02 Pantoprazole (Protonix) 40 mg EVERY 12 HOURS ORAL 04/29/19 21:00 05/24/19 20:59 05/01/19 10:26 Patient Own Medication (Patient's Own Med) 1 ea BID ORAL 04/29/19 18:00 05/26/19 17:59 05/01/19 10:27 Patient Own Medication (Patient's Own Med) 1 ea DAILY ORAL 04/30/19 09:00 05/26/19 16:59 05/01/19 10:28 Patient Own Medication (Patient's Own Med) 1 ea DAILY ORAL 04/30/19 09:00 05/26/19 16:59 05/01/19 10:28 Polyethylene Glycol (Miralax) 17 gm DAILYPRN PRN ORAL Constipation 04/29/19 23:15 05/23/19 23:14 Pravastatin Sodium (Pravachol) 40 mg QHS ORAL 04/29/19 21:00 05/24/19 20:59 04/30/19 20:19 Sevelamer Carbonate (Renvela) 2,400 mg THREE TIMES A DAY ORAL 04/29/19 13:00 05/24/19 12:59 05/01/19 10:27 Allergies: Coded Allergies: FLUTICASONE (Unverified Allergy, Unknown, 02/23/17) LEVOFLOXACIN (Unverified Allergy, Unknown, 08/22/14) MORPHINE (Unverified Allergy, Unknown, 02/23/17) ROS Limited/Unobtainable: No Constitutional: Reports: no symptoms HEENT: Reports: no symptoms Cardiovascular: Reports: no symptoms Respiratory: Reports: no symptoms Gastrointestinal/Abdominal: Reports: no symptoms Genitourinary: Reports: no symptoms Neurologic/Psychiatric: Reports: no symptoms Subjective 53 YO M admitted with right hip pain. Now avascular necrosis right femoral head. Cover for Int Med-Dr Hoff. Await transfer to [facility] Objective Last Vital Signs Date Time Temp Pulse Resp B/P (MAP) Pulse Ox O2 Delivery O2 Flow Rate FiO2 05/01/19 12:00 96.9 62 18 137/77 (97) 93 05/01/19 09:00 Room Air 04/28/19 21:05 21 04/27/19 20:00 2.0 Laboratory Tests Test 05/01/19 07:01 White Blood Count 3.4 K/UL (4.8-10.8) L Red Blood Count 4.86 M/UL (4.70-6.10) Hemoglobin 11.7 G/DL (14.2-18.0) L Hematocrit 38.8 % (42.0-52.0) L Mean Corpuscular Volume 80 FL (80-99) Mean Corpuscular Hemoglobin 24.0 PG (27.0-31.0) L Mean Corpuscular Hemoglobin Concent 30.1 G/DL (32.0-36.0) L Red Cell Distribution Width 18.6 % (11.6-14.8) H Platelet Count 77 K/UL (150-450) L Mean Platelet Volume 7.2 FL (6.5-10.1) Neutrophils (%) (Auto) % (45.0-75.0) Lymphocytes (%) (Auto) % (20.0-45.0) Monocytes (%) (Auto) % (1.0-10.0) Eosinophils (%) (Auto) % (0.0-3.0) Basophils (%) (Auto) % (0.0-2.0) Differential Total Cells Counted 100 Neutrophils % (Manual) 55 % (45-75) Lymphocytes % (Manual) 23 % (20-45) Monocytes % (Manual) 16 % (1-10) H Eosinophils % (Manual) 5 % (0-3) H Basophils % (Manual) 1 % (0-2) Band Neutrophils 0 % (0-8) Platelet Estimate Decreased L Platelet Morphology Normal Anisocytosis 2+ Sodium Level 133 MMOL/L (136-145) L Potassium Level 5.2 MMOL/L (3.5-5.1) H Chloride Level 94 MMOL/L (98-107) L Carbon Dioxide Level 23 MMOL/L (21-32) Anion Gap 16 mmol/L (5-15) H Blood Urea Nitrogen 64 mg/dL (7-18) H Creatinine 12.0 MG/DL (0.55-1.30) H Estimat Glomerular Filtration Rate 5.3 mL/min (>60) Glucose Level 84 MG/DL (74-106) Calcium Level 10.3 MG/DL (8.5-10.1) H Phosphorus Level 8.8 MG/DL (2.5-4.9) H Magnesium Level 2.2 MG/DL (1.8-2.4) Total Bilirubin 0.6 MG/DL (0.2-1.0) Aspartate Amino Transf (AST/SGOT) 42 U/L (15-37) H Alanine Aminotransferase (ALT/SGPT) 24 U/L (12-78) Alkaline Phosphatase 56 U/L (46-116) Total Protein 8.2 G/DL (6.4-8.2) Albumin 2.6 G/DL (3.4-5.0) L Globulin 5.6 g/dL Albumin/Globulin Ratio 0.5 (1.0-2.7) L Intake and Output 04/30/19 05/01/19 19:00 07:00 Intake Total 600 ml 50 ml Balance 600 ml 50 ml Intake Oral 600 ml 50 ml Objective PHYSICAL EXAMINATION: GENERAL: The patient is well-developed and well-nourished male, in no apparent distress. HEENT: Eyes, pupils are equal and responsive to light and accommodation. Extraocular movements are intact. NECK: Supple. No lymphadenopathy. CHEST: Lungs are clear to auscultation bilaterally without wheezes or rales. CARDIOVASCULAR: Regular rhythm and rate. S1 and S2 normal without murmurs, rubs, or gallops. ABDOMEN: Soft, nontender, and nondistended. Positive bowel sounds. No evidence of hepatosplenomegaly. Currently, no rebound or guarding noted. EXTREMITIES: Negative for clubbing, cyanosis, or edema. RECTAL/GENITAL: Refused. NEUROLOGIC: Cranial nerves II through XII are grossly intact without focal deficits. Motor strength is 5/5 bilaterally. Deep tendon reflexes are 2+ plantar. Assessment/Plan Assessment/Plan ASSESSMENT: This is a 53-year-old, male. 1. ?Fracture of the right femoral head? 2. Avascular necrosis of the right femoral head. 3. Human immunodeficiency virus. 4. End-stage renal disease. 5. Atrial fibrillation. 6. Hypertension. 7. Coronary artery disease. 8. History of deep venous thrombosis. TREATMENT: 1.Avascular necrosis of the right femoral head. An Orthopedic consultation has been obtained with Dr. Mannie Rogers-see consult note. An MRI o fthe right hip inconclusive to confirm fracture. The patient has been cleared by cardiology for surgery-see note. 2. Human immunodeficiency virus. Continue HAART medications as above. 4. End-stage renal disease. Nephrology consultation obtained with Dr. Thmoas. The patient is S/P dialysis on May 01, 2019. 5. Atrial fibrillation. A Cardiology consultation has been obtained with Dr. Heath Valencia. 6. Hypertension. Continue atenolol as above. 7. Coronary artery disease. As above, a Cardiology consultation has been obtained with Dr. Heath Valencia. 8. History of deep venous thrombosis. 9. Discussed with Ortho-Dr Rogers-right hip replacement "too complicated" for [facility]-transfer to [facility]-Dr Hoff/[place] attending Fabricio Guillory MD May 01, 2019 17:47
--- NOTE | 2019-05-01 19:19 | NUR ---
HAND-OFF: Report given to JEFRY Willis.
--- NOTE | 2019-05-01 19:30 | NUR ---
NURSE NOTES: Received patient in bed from [facility]. AAO x 4. On room air. Perma cath on R leg is intact and patent. No acute distress noted at this time. IV is intact and patent. Bed locked, lowest position, alarm on, side rails up x 2 and padded, call light within reach. Will continue to monitor.
--- NOTE | 2019-05-01 19:36 | Cardiac Electrophysiology PN ---
Assessment/Plan Assessment/Plan 1. Nonsustained ventricular tachycardia vs atrial fib with aberrancy. EF 45-50%. Off tele now 2. Atrial fibrillation with bradycardia , better on metoprolol 12.5 bid Would need long-term oral anticoagulation like Eliquis after hip surgery 3. Troponin leak. Due to renal failure. No CP or SOB. 3. End-stage renal disease, on hemodialysis. Right femoral HD catheter needs to be removed before Hip surgery per Ortho 4. Right hip pain due to avascular necrosis. Total hip arthroplasty at [facility] pending. Stable from cardiac stand point. No further cardiac testing needed prior to surgery LORENZA RN Subjective Subjective No CP or SOB.Had HD today. Awaiting bed at [facility] Objective Last 24 Hour Vital Signs Date Time Temp Pulse Resp B/P (MAP) Pulse Ox O2 Delivery O2 Flow Rate FiO2 05/01/19 16:00 98.3 60 18 122/69 (86) 96 05/01/19 12:00 96.9 62 18 137/77 (97) 93 05/01/19 09:00 Room Air 05/01/19 08:00 96.8 66 18 138/76 (96) 94 05/01/19 04:00 98.6 89 18 101/65 (77) 94 05/01/19 00:00 98.1 66 18 130/64 (86) 97 04/30/19 21:00 Room Air 04/30/19 20:20 65 124/69 04/30/19 20:00 99.0 65 18 129/69 (89) 95 Intake and Output 04/30/19 05/01/19 19:00 07:00 Intake Total 600 ml 50 ml Balance 600 ml 50 ml Intake Oral 600 ml 50 ml Laboratory Tests Test 05/01/19 07:01 White Blood Count 3.4 K/UL (4.8-10.8) L Red Blood Count 4.86 M/UL (4.70-6.10) Hemoglobin 11.7 G/DL (14.2-18.0) L Hematocrit 38.8 % (42.0-52.0) L Mean Corpuscular Volume 80 FL (80-99) Mean Corpuscular Hemoglobin 24.0 PG (27.0-31.0) L Mean Corpuscular Hemoglobin Concent 30.1 G/DL (32.0-36.0) L Red Cell Distribution Width 18.6 % (11.6-14.8) H Platelet Count 77 K/UL (150-450) L Mean Platelet Volume 7.2 FL (6.5-10.1) Neutrophils (%) (Auto) % (45.0-75.0) Lymphocytes (%) (Auto) % (20.0-45.0) Monocytes (%) (Auto) % (1.0-10.0) Eosinophils (%) (Auto) % (0.0-3.0) Basophils (%) (Auto) % (0.0-2.0) Differential Total Cells Counted 100 Neutrophils % (Manual) 55 % (45-75) Lymphocytes % (Manual) 23 % (20-45) Monocytes % (Manual) 16 % (1-10) H Eosinophils % (Manual) 5 % (0-3) H Basophils % (Manual) 1 % (0-2) Band Neutrophils 0 % (0-8) Platelet Estimate Decreased L Platelet Morphology Normal Anisocytosis 2+ Sodium Level 133 MMOL/L (136-145) L Potassium Level 5.2 MMOL/L (3.5-5.1) H Chloride Level 94 MMOL/L (98-107) L Carbon Dioxide Level 23 MMOL/L (21-32) Anion Gap 16 mmol/L (5-15) H Blood Urea Nitrogen 64 mg/dL (7-18) H Creatinine 12.0 MG/DL (0.55-1.30) H Estimat Glomerular Filtration Rate 5.3 mL/min (>60) Glucose Level 84 MG/DL (74-106) Calcium Level 10.3 MG/DL (8.5-10.1) H Phosphorus Level 8.8 MG/DL (2.5-4.9) H Magnesium Level 2.2 MG/DL (1.8-2.4) Total Bilirubin 0.6 MG/DL (0.2-1.0) Aspartate Amino Transf (AST/SGOT) 42 U/L (15-37) H Alanine Aminotransferase (ALT/SGPT) 24 U/L (12-78) Alkaline Phosphatase 56 U/L (46-116) Total Protein 8.2 G/DL (6.4-8.2) Albumin 2.6 G/DL (3.4-5.0) L Globulin 5.6 g/dL Albumin/Globulin Ratio 0.5 (1.0-2.7) L Objective HEAD AND NECK: No JVD. LUNGS: Decreased breath sounds. CARDIOVASCULAR: Irregular S1 and S2 with no murmur ABDOMEN: Soft. EXTREMITIES: Dialysis access in the right thigh. Heath Valencia MD May 01, 2019 19:36
[2019-05-01 20:00] VITALS: BP 122/70
[2019-05-02] VITALS: BP 127/62
[2019-05-02 04:00] VITALS: BP 137/68
--- NOTE | 2019-05-02 07:31 | NUR ---
HAND-OFF: Report given to JEFRY Olivares.
--- NOTE | 2019-05-02 07:34 | NUR ---
NURSE NOTES: Patient awake, alert x4; on room air, no sing of distress and shortness of breath; no sing of chest pain; IV Left-Hand flushes well; side rails padded for seizure percussion, bed at lowest position, breaks engaged; Perm-cath for dialysis on Right-Thigh; call light within reach; will keep monitoring.
[2019-05-02 08:00] VITALS: BP_SYST 105; BP_SYST 112; BP_DIAS 68
[2019-05-02 08:45] LABS: BASOPHILS % (AUTO) 0.8 % (0.0-2.0); EOSINOPHILS % (AUTO) 4.9 % (0.0-3.0); HEMATOCRIT 37.2 % (42.0-52.0); HEMOGLOBIN 11.2 G/DL (14.2-18.0); LYMPHOCYTES % (AUTO) 21.1 % (20.0-45.0); MEAN CORPUSCULAR VOLUME 81 FL (80-99); MONOCYTES % (AUTO) 16.5 % (1.0-10.0); NEUTROPHILS % (AUTO) 56.8 % (45.0-75.0); PLATELET COUNT 168 K/UL (150-450); RED BLOOD COUNT 4.59 M/UL (4.70-6.10); RED CELL DISTRIBUTION WIDTH 18.7 % (11.6-14.8); WHITE BLOOD COUNT 3.6 K/UL (4.8-10.8)
[2019-05-02] MEDS: Lactulose 20gm/30ml UDC ORAL SCH ×2 (08:59→12:08)
[2019-05-02] MEDS: Docusate 100mg cap ORAL SCH ×2 (08:59→12:08)
[2019-05-02] MEDS: Metoprolol Tartrate 12.5mg TAB ORAL SCH (08:59)
[2019-05-02 09:01] LABS: ANION GAP 8 mmol/L (5-15); BLOOD UREA NITROGEN 47 mg/dL (7-18); CARBON DIOXIDE 30 MMOL/L (21-32); CHLORIDE 95 MMOL/L (98-107); CREATININE 9.8 MG/DL (0.55-1.30); POTASSIUM 4.4 MMOL/L (3.5-5.1); SODIUM 133 MMOL/L (136-145)
--- NOTE | 2019-05-02 09:34 | Nephrology Progress Note ---
Assessment/Plan Problem List: (1) ESRD on hemodialysis (2) Peripheral vascular disease (3) HIV (human immunodeficiency virus infection) (4) Coronary artery disease (5) Atrial fibrillation Assessment Right Hip Fx- Renal Osteo Dystrophy ESRD, High K of 6.2 HTN of CKD Asthma At Fib CAD PVD HIV Disease Sz disorder Plan Plan: HD next 05/03 BP control pain management phos binders lactulose ortho eval suggestions noted per orders ? DC / Transfer Subjective ROS Limited/Unobtainable: No Constitutional: Reports: malaise Objective Objective Last 24 Hour Vital Signs Date Time Temp Pulse Resp B/P (MAP) Pulse Ox O2 Delivery O2 Flow Rate FiO2 05/02/19 08:59 85 112/68 05/02/19 08:00 98.1 85 20 112/68 (83) 95 05/02/19 04:00 98.4 72 18 137/68 (91) 100 05/02/19 00:00 97.0 66 20 127/62 (83) 92 05/01/19 21:00 Room Air 05/01/19 20:18 73 115/68 05/01/19 20:00 98.2 60 20 122/70 (87) 92 05/01/19 16:00 98.3 60 18 122/69 (86) 96 05/01/19 12:00 96.9 62 18 137/77 (97) 93 Intake and Output 05/01/19 05/02/19 19:00 07:00 Intake Total 240 ml 600 ml Output Total 2000 ml Balance -1760 ml 600 ml Intake Oral 240 ml 600 ml Hemodialysis UF 2000 ml # Voids 2 # Bowel Movements 1 1 Laboratory Tests 05/02/19 06:50: White Blood Count 3.6L, Red Blood Count 4.59L, Hemoglobin 11.2L, Hematocrit 37.2L, Mean Corpuscular Volume 81, Mean Corpuscular Hemoglobin 24.4L, Mean Corpuscular Hemoglobin Concent 30.1L, Red Cell Distribution Width 18.7H, Platelet Count 168#, Mean Platelet Volume 7.5, Neutrophils (%) (Auto) 56.8, Lymphocytes (%) (Auto) 21.1, Monocytes (%) (Auto) 16.5H, Eosinophils (%) (Auto) 4.9H, Basophils (%) (Auto) 0.8, Sodium Level 133L, Potassium Level 4.4, Chloride Level 95L, Carbon Dioxide Level 30, Anion Gap 8, Blood Urea Nitrogen 47H, Creatinine 9.8H, Estimat Glomerular Filtration Rate 6.8, Glucose Level 111H , Calcium Level 10.0 Height (Feet): 6 Height (Inches): 3.00 Weight (Pounds): 183 General Appearance: no apparent distress Objective no change Perfecto Thomas MD May 02, 2019 09:34
[2019-05-02 09:54] LABS: ALANINE AMINOTRANSFERASE 16 U/L (12-78); ALBUMIN 2.7 G/DL (3.4-5.0); ALKALINE PHOSPHATASE 57 U/L (46-116); ASPARTATE AMINO TRANSFERASE 34 U/L (15-37); BILIRUBIN,DIRECT 0.1 MG/DL (0.0-0.3); BILIRUBIN,TOTAL 0.5 MG/DL (0.2-1.0); PHOSPHORUS 6.8 MG/DL (2.5-4.9)
--- NOTE | 2019-05-02 10:02 | NUR ---
NURSE NOTES: I called to [facility] Nephrology at [phone] and spoke to VERO to schedule dialysis for this patient for 05/03/19. VERO said Nicole mercer call to confirm the dialysis. Waiting for call.
[2019-05-02 12:06] VITALS: BP 112/68
--- NOTE | 2019-05-02 12:10 | Internal Med Progress Note ---
Subjective Date of Service: May 02, 2019 Physician Name PastoraFabricio Attending Physician Nabeel Hoff MD Current Medications Medications (Trade) Dose Ordered Sig/Anum Route PRN Reason Start Time Stop Time Status Last Admin Dose Admin Acetaminophen (Tylenol) 650 mg Q4H PRN ORAL Prn Headache/Temp > 101 04/29/19 11:50 05/24/19 11:49 Dextrose (Dextrose 50%) 25 ml Q30M PRN IV Hypoglycemia 04/29/19 11:45 05/23/19 23:14 Dextrose (Dextrose 50%) 50 ml Q30M PRN IV Hypoglycemia 04/29/19 11:45 05/23/19 23:14 Diphenhydramine HCl (Benadryl) 25 mg DAILYPRN PRN IVP Give with dialysis treatments 04/29/19 12:03 05/24/19 12:02 05/01/19 14:09 Docusate Sodium (Colace) 100 mg THREE TIMES A DAY ORAL 04/29/19 13:00 05/24/19 12:59 05/02/19 08:59 Gabapentin (Neurontin) 300 mg BID ORAL 04/29/19 18:00 05/24/19 17:59 05/02/19 08:58 Hydralazine HCl (Apresoline) 10 mg Q4H PRN IV bp over 160 syst 04/29/19 13:00 05/24/19 12:59 Lactulose (Cephulac) 20 gm THREE TIMES A DAY ORAL 04/29/19 13:00 05/25/19 17:59 05/02/19 08:59 Metoprolol Tartrate (Lopressor) 12.5 mg Q12HR ORAL 04/29/19 21:00 05/26/19 08:59 05/02/19 08:59 Ondansetron HCl (Zofran) 4 mg Q6H PRN IVP Nausea & Vomiting 04/29/19 12:03 05/23/19 12:02 05/02/19 01:27 Pantoprazole (Protonix) 40 mg EVERY 12 HOURS ORAL 04/29/19 21:00 05/24/19 20:59 05/02/19 08:59 Patient Own Medication (Patient's Own Med) 1 ea BID ORAL 04/29/19 18:00 05/26/19 17:59 05/02/19 09:00 Patient Own Medication (Patient's Own Med) 1 ea DAILY ORAL 04/30/19 09:00 05/26/19 16:59 05/02/19 08:59 Patient Own Medication (Patient's Own Med) 1 ea DAILY ORAL 04/30/19 09:00 05/26/19 16:59 05/02/19 09:00 Polyethylene Glycol (Miralax) 17 gm DAILYPRN PRN ORAL Constipation 04/29/19 23:15 05/23/19 23:14 Pravastatin Sodium (Pravachol) 40 mg QHS ORAL 04/29/19 21:00 05/24/19 20:59 05/01/19 20:14 Sevelamer Carbonate (Renvela) 2,400 mg THREE TIMES A DAY ORAL 04/29/19 13:00 05/24/19 12:59 05/02/19 08:59 Allergies: Coded Allergies: FLUTICASONE (Unverified Allergy, Unknown, 02/23/17) LEVOFLOXACIN (Unverified Allergy, Unknown, 08/22/14) MORPHINE (Unverified Allergy, Unknown, 02/23/17) ROS Limited/Unobtainable: No Constitutional: Reports: no symptoms HEENT: Reports: no symptoms Cardiovascular: Reports: no symptoms Respiratory: Reports: no symptoms Gastrointestinal/Abdominal: Reports: no symptoms Genitourinary: Reports: no symptoms Neurologic/Psychiatric: Reports: no symptoms Subjective 53 YO M admitted with right hip pain. Now avascular necrosis right femoral head. Cover for Int Med-Dr Hoff. Await transfer to [facility] Objective Last Vital Signs Date Time Temp Pulse Resp B/P (MAP) Pulse Ox O2 Delivery O2 Flow Rate FiO2 05/02/19 12:06 98.1 85 20 112/68 (83) 95 05/02/19 09:00 Room Air 04/28/19 21:05 21 04/27/19 20:00 2.0 Laboratory Tests Test 05/02/19 06:50 05/02/19 09:32 White Blood Count 3.6 K/UL (4.8-10.8) L Red Blood Count 4.59 M/UL (4.70-6.10) L Hemoglobin 11.2 G/DL (14.2-18.0) L Hematocrit 37.2 % (42.0-52.0) L Mean Corpuscular Volume 81 FL (80-99) Mean Corpuscular Hemoglobin 24.4 PG (27.0-31.0) L Mean Corpuscular Hemoglobin Concent 30.1 G/DL (32.0-36.0) L Red Cell Distribution Width 18.7 % (11.6-14.8) H Platelet Count 168 K/UL (150-450) # Mean Platelet Volume 7.5 FL (6.5-10.1) Neutrophils (%) (Auto) 56.8 % (45.0-75.0) Lymphocytes (%) (Auto) 21.1 % (20.0-45.0) Monocytes (%) (Auto) 16.5 % (1.0-10.0) H Eosinophils (%) (Auto) 4.9 % (0.0-3.0) H Basophils (%) (Auto) 0.8 % (0.0-2.0) Sodium Level 133 MMOL/L (136-145) L Potassium Level 4.4 MMOL/L (3.5-5.1) Chloride Level 95 MMOL/L (98-107) L Carbon Dioxide Level 30 MMOL/L (21-32) Anion Gap 8 mmol/L (5-15) Blood Urea Nitrogen 47 mg/dL (7-18) H Creatinine 9.8 MG/DL (0.55-1.30) H Estimat Glomerular Filtration Rate 6.8 mL/min (>60) Glucose Level 111 MG/DL (74-106) H Calcium Level 10.0 MG/DL (8.5-10.1) Phosphorus Level 6.8 MG/DL (2.5-4.9) H Magnesium Level 2.2 MG/DL (1.8-2.4) Total Bilirubin 0.5 MG/DL (0.2-1.0) Direct Bilirubin 0.1 MG/DL (0.0-0.3) Aspartate Amino Transf (AST/SGOT) 34 U/L (15-37) Alanine Aminotransferase (ALT/SGPT) 16 U/L (12-78) Alkaline Phosphatase 57 U/L (46-116) Total Protein 7.8 G/DL (6.4-8.2) Albumin 2.7 G/DL (3.4-5.0) L Intake and Output 05/01/19 05/02/19 19:00 07:00 Intake Total 240 ml 600 ml Output Total 2000 ml Balance -1760 ml 600 ml Intake Oral 240 ml 600 ml Hemodialysis UF 2000 ml # Voids 2 # Bowel Movements 1 1 Objective PHYSICAL EXAMINATION: GENERAL: The patient is well-developed and well-nourished male, in no apparent distress. HEENT: Eyes, pupils are equal and responsive to light and accommodation. Extraocular movements are intact. NECK: Supple. No lymphadenopathy. CHEST: Lungs are clear to auscultation bilaterally without wheezes or rales. CARDIOVASCULAR: Regular rhythm and rate. S1 and S2 normal without murmurs, rubs, or gallops. ABDOMEN: Soft, nontender, and nondistended. Positive bowel sounds. No evidence of hepatosplenomegaly. Currently, no rebound or guarding noted. EXTREMITIES: Negative for clubbing, cyanosis, or edema. RECTAL/GENITAL: Refused. NEUROLOGIC: Cranial nerves II through XII are grossly intact without focal deficits. Motor strength is 5/5 bilaterally. Deep tendon reflexes are 2+ plantar. Assessment/Plan Assessment/Plan ASSESSMENT: This is a 53-year-old, male. 1. Fracture of the right femoral head 2. Avascular necrosis of the right femoral head. 3. Human immunodeficiency virus. 4. End-stage renal disease. 5. Atrial fibrillation. 6. Hypertension. 7. Coronary artery disease. 8. History of deep venous thrombosis. TREATMENT: 1.Avascular necrosis of the right femoral head. An Orthopedic consultation has been obtained with Dr. Mannie Rogers-see consult note. See MRI of the right hip. The patient has been cleared by cardiology for surgery-see note. 2. Human immunodeficiency virus. Continue HAART medications as above. 4. End-stage renal disease. Nephrology consultation obtained with Dr. Thomas. The patient is S/P dialysis on May 01, 2019. 5. Atrial fibrillation. A Cardiology consultation has been obtained with Dr. Heath Valencia. 6. Hypertension. Continue atenolol as above. 7. Coronary artery disease. As above, a Cardiology consultation has been obtained with Dr. Heath Valencia. 8. History of deep venous thrombosis. 9. Discussed with Ortho-Dr Rogers-right hip replacement "too complicated" for [facility]-transfer to [facility]-Dr Hoff/[place] attending Fabricio Guillory MD May 02, 2019 12:10
[2019-05-02] MEDS ORDERED: COLACE100 MG ORAL (12:53)
[2019-05-02] MEDS ORDERED: Acetaminophen ORAL (12:53)
[2019-05-02] MEDS ORDERED: MIRALAX119 GM ORAL (12:53)
[2019-05-02] MEDS ORDERED: LOPRESSOR25 M1 ORAL (12:53)
[2019-05-02] MEDS ORDERED: LACTULOSE20 GM/301 ORAL (12:53)
[2019-05-02] MEDS ORDERED: ZOFRAN 4 MG4 MG/2 ML IVP (12:53)
[2019-05-02] MEDS ORDERED: RENVELA800 MG ORAL (12:53)
[2019-05-02] MEDS ORDERED: PANTOPRAZOLE SO40 MG ORAL (12:53)
[2019-05-02] MEDS ORDERED: NEURONTIN300 MG ORAL (12:53)
--- NOTE | 2019-05-02 13:05 | NUR ---
DISCHARGE PLANNING: NOTE CM RECEIVED A CALL FROM MALLIKA. PT HAS A BED. CHART IS BEING PRINTED AND IMAGING ON CD BY DORA. AWAITING ROOM NUMBER/ASSIGNMENT
--- NOTE | 2019-05-02 13:19 | Pulmonology Progress Note ---
Assessment/Plan Problems: (1) Hemoptysis (2) Fracture of head of right femur (3) Avascular necrosis of bone of hip (4) Atrial fibrillation (5) HIV (human immunodeficiency virus infection) (6) Hypertension (7) ESRD on hemodialysis (8) Anemia in chronic kidney disease (9) Seizure disorder (10) Coronary artery disease (11) Pancreatitis, chronic (12) Peripheral vascular disease Assessment/Plan all reviewed pt needs elective arthroplasty doensn't want to go to a [facility] BP more stable now pain management symptomatic treatment f/u troponin Subjective ROS Limited/Unobtainable: No Constitutional: Reports: no symptoms HEENT: Repors: no symptoms Respiratory: Reports: no symptoms Allergies: Coded Allergies: FLUTICASONE (Unverified Allergy, Unknown, 02/23/17) LEVOFLOXACIN (Unverified Allergy, Unknown, 08/22/14) MORPHINE (Unverified Allergy, Unknown, 02/23/17) Objective Last 24 Hour Vital Signs Date Time Temp Pulse Resp B/P (MAP) Pulse Ox O2 Delivery O2 Flow Rate FiO2 05/02/19 12:06 98.1 85 20 112/68 (83) 95 05/02/19 10:08 98.1 05/02/19 09:00 Room Air 05/02/19 08:59 85 112/68 05/02/19 08:00 98.1 85 20 112/68 (83) 95 05/02/19 04:00 98.4 72 18 137/68 (91) 100 05/02/19 00:00 97.0 66 20 127/62 (83) 92 05/01/19 21:00 Room Air 05/01/19 20:18 73 115/68 05/01/19 20:00 98.2 60 20 122/70 (87) 92 05/01/19 16:00 98.3 60 18 122/69 (86) 96 Intake and Output 05/01/19 05/02/19 19:00 07:00 Intake Total 240 ml 600 ml Output Total 2000 ml Balance -1760 ml 600 ml Intake Oral 240 ml 600 ml Hemodialysis UF 2000 ml # Voids 2 # Bowel Movements 1 1 Objective awake, comfortable General Appearance: WD/WN HEENT: normocephalic, atraumatic Respiratory/Chest: chest wall non-tender, lungs clear Breasts: no masses Cardiovascular: regular rhythm Abdomen: normal bowel sounds, soft, non tender Extremities: no cyanosis Skin: no rash Laboratory Tests 05/02/19 06:50: White Blood Count 3.6L, Red Blood Count 4.59L, Hemoglobin 11.2L, Hematocrit 37.2L, Mean Corpuscular Volume 81, Mean Corpuscular Hemoglobin 24.4L, Mean Corpuscular Hemoglobin Concent 30.1L, Red Cell Distribution Width 18.7H, Platelet Count 168#, Mean Platelet Volume 7.5, Neutrophils (%) (Auto) 56.8, Lymphocytes (%) (Auto) 21.1, Monocytes (%) (Auto) 16.5H, Eosinophils (%) (Auto) 4.9H, Basophils (%) (Auto) 0.8, Sodium Level 133L, Potassium Level 4.4, Chloride Level 95L, Carbon Dioxide Level 30, Anion Gap 8, Blood Urea Nitrogen 47H, Creatinine 9.8H, Estimat Glomerular Filtration Rate 6.8, Glucose Level 111H , Calcium Level 10.0 05/02/19 09:32: Phosphorus Level 6.8H, Magnesium Level 2.2, Total Bilirubin 0.5, Direct Bilirubin 0.1, Aspartate Amino Transf (AST/SGOT) 34, Alanine Aminotransferase ( ALT/SGPT) 16, Alkaline Phosphatase 57, Total Protein 7.8, Albumin 2.7L Current Medications Medications (Trade) Dose Ordered Sig/Anum Route PRN Reason Start Time Stop Time Status Last Admin Dose Admin Acetaminophen (Tylenol) 650 mg Q4H PRN ORAL Prn Headache/Temp > 101 04/29/19 11:50 05/24/19 11:49 Dextrose (Dextrose 50%) 25 ml Q30M PRN IV Hypoglycemia 04/29/19 11:45 05/23/19 23:14 Dextrose (Dextrose 50%) 50 ml Q30M PRN IV Hypoglycemia 04/29/19 11:45 05/23/19 23:14 Diphenhydramine HCl (Benadryl) 25 mg DAILYPRN PRN IVP Give with dialysis treatments 04/29/19 12:03 05/24/19 12:02 05/01/19 14:09 Docusate Sodium (Colace) 100 mg THREE TIMES A DAY ORAL 04/29/19 13:00 05/24/19 12:59 05/02/19 12:08 Gabapentin (Neurontin) 300 mg BID ORAL 04/29/19 18:00 05/24/19 17:59 05/02/19 08:58 Hydralazine HCl (Apresoline) 10 mg Q4H PRN IV bp over 160 syst 04/29/19 13:00 05/24/19 12:59 Lactulose (Cephulac) 20 gm THREE TIMES A DAY ORAL 04/29/19 13:00 05/25/19 17:59 05/02/19 12:08 Metoprolol Tartrate (Lopressor) 12.5 mg Q12HR ORAL 04/29/19 21:00 05/26/19 08:59 05/02/19 08:59 Ondansetron HCl (Zofran) 4 mg Q6H PRN IVP Nausea & Vomiting 04/29/19 12:03 05/23/19 12:02 05/02/19 01:27 Pantoprazole (Protonix) 40 mg EVERY 12 HOURS ORAL 04/29/19 21:00 05/24/19 20:59 05/02/19 08:59 Patient Own Medication (Patient's Own Med) 1 ea BID ORAL 04/29/19 18:00 05/26/19 17:59 05/02/19 09:00 Patient Own Medication (Patient's Own Med) 1 ea DAILY ORAL 04/30/19 09:00 05/26/19 16:59 05/02/19 08:59 Patient Own Medication (Patient's Own Med) 1 ea DAILY ORAL 04/30/19 09:00 05/26/19 16:59 05/02/19 09:00 Polyethylene Glycol (Miralax) 17 gm DAILYPRN PRN ORAL Constipation 04/29/19 23:15 05/23/19 23:14 Pravastatin Sodium (Pravachol) 40 mg QHS ORAL 04/29/19 21:00 05/24/19 20:59 05/01/19 20:14 Sevelamer Carbonate (Renvela) 2,400 mg THREE TIMES A DAY ORAL 04/29/19 13:00 05/24/19 12:59 05/02/19 12:08 Srinivasan Patterson MD May 02, 2019 13:19
--- NOTE | 2019-05-02 14:11 | Cardiac Electrophysiology PN ---
Assessment/Plan Assessment/Plan 1. Nonsustained ventricular tachycardia vs atrial fib with aberrancy. EF 45-50%. Off tele now 2. Atrial fibrillation with bradycardia , better on metoprolol 12.5 bid Would need long-term oral anticoagulation like Eliquis after hip surgery 3. Troponin leak. Due to renal failure. No CP or SOB. 3. End-stage renal disease, on hemodialysis. Right femoral HD catheter needs to be removed before Hip surgery per Ortho 4. Right hip pain due to avascular necrosis. Total hip arthroplasty at [facility] pending. Stable from cardiac stand point. No further cardiac testing needed prior to surgery LORENZA RN Subjective Subjective No CP or SOB Awaiting transfer to [facility] Objective Last 24 Hour Vital Signs Date Time Temp Pulse Resp B/P (MAP) Pulse Ox O2 Delivery O2 Flow Rate FiO2 05/02/19 12:06 98.1 85 20 112/68 (83) 95 05/02/19 10:08 98.1 05/02/19 09:00 Room Air 05/02/19 08:59 85 112/68 05/02/19 08:00 98.1 85 20 112/68 (83) 95 05/02/19 04:00 98.4 72 18 137/68 (91) 100 05/02/19 00:00 97.0 66 20 127/62 (83) 92 05/01/19 21:00 Room Air 05/01/19 20:18 73 115/68 05/01/19 20:00 98.2 60 20 122/70 (87) 92 05/01/19 16:00 98.3 60 18 122/69 (86) 96 Intake and Output 05/01/19 05/02/19 19:00 07:00 Intake Total 240 ml 600 ml Output Total 2000 ml Balance -1760 ml 600 ml Intake Oral 240 ml 600 ml Hemodialysis UF 2000 ml # Voids 2 # Bowel Movements 1 1 Laboratory Tests Test 05/02/19 06:50 05/02/19 09:32 White Blood Count 3.6 K/UL (4.8-10.8) L Red Blood Count 4.59 M/UL (4.70-6.10) L Hemoglobin 11.2 G/DL (14.2-18.0) L Hematocrit 37.2 % (42.0-52.0) L Mean Corpuscular Volume 81 FL (80-99) Mean Corpuscular Hemoglobin 24.4 PG (27.0-31.0) L Mean Corpuscular Hemoglobin Concent 30.1 G/DL (32.0-36.0) L Red Cell Distribution Width 18.7 % (11.6-14.8) H Platelet Count 168 K/UL (150-450) # Mean Platelet Volume 7.5 FL (6.5-10.1) Neutrophils (%) (Auto) 56.8 % (45.0-75.0) Lymphocytes (%) (Auto) 21.1 % (20.0-45.0) Monocytes (%) (Auto) 16.5 % (1.0-10.0) H Eosinophils (%) (Auto) 4.9 % (0.0-3.0) H Basophils (%) (Auto) 0.8 % (0.0-2.0) Sodium Level 133 MMOL/L (136-145) L Potassium Level 4.4 MMOL/L (3.5-5.1) Chloride Level 95 MMOL/L (98-107) L Carbon Dioxide Level 30 MMOL/L (21-32) Anion Gap 8 mmol/L (5-15) Blood Urea Nitrogen 47 mg/dL (7-18) H Creatinine 9.8 MG/DL (0.55-1.30) H Estimat Glomerular Filtration Rate 6.8 mL/min (>60) Glucose Level 111 MG/DL (74-106) H Calcium Level 10.0 MG/DL (8.5-10.1) Phosphorus Level 6.8 MG/DL (2.5-4.9) H Magnesium Level 2.2 MG/DL (1.8-2.4) Total Bilirubin 0.5 MG/DL (0.2-1.0) Direct Bilirubin 0.1 MG/DL (0.0-0.3) Aspartate Amino Transf (AST/SGOT) 34 U/L (15-37) Alanine Aminotransferase (ALT/SGPT) 16 U/L (12-78) Alkaline Phosphatase 57 U/L (46-116) Total Protein 7.8 G/DL (6.4-8.2) Albumin 2.7 G/DL (3.4-5.0) L Objective HEAD AND NECK: No JVD. LUNGS: Decreased breath sounds. CARDIOVASCULAR: Irregular S1 and S2 with no murmur ABDOMEN: Soft. EXTREMITIES: Dialysis access in the right thigh. Heath Valencia MD May 02, 2019 14:11
--- NOTE | 2019-05-02 14:19 | NUR ---
DISCHARGE DISPOSITION: PLEASE READ PATIENT TO BE DISCHARGED TO [facility] [address] [facility] [address] T: [phone]>>>> CALL FOR REPORT [facility] ETA 1630 SEND PATIENT WITH ENTIRE CHART AND ALL IMAGING ON CD
--- NOTE | 2019-05-02 15:26 | NUR ---
NURSE NOTES: I called Marvin Tom at [phone], to inform patient's next of kin that, patient gonna be transfered to [facility]. I left a voice message, call back number and the reason of my call.
--- NOTE | 2019-05-02 15:28 | Infectious Diseases Prog Note ---
Assessment/Plan Assessment/Plan Assessment: R femoral avascular necrosis -MRI HIp: AVN of the right hip with subchondral signal abnormality. The study is significantly degraded by motion. -CT hip: Evidence of avascular necrosis of the right hip with subchondral fractures and moderate arthrosis. Renal osteodystrophy. Other findings as above Afebrile Pancytopenia Hemoptysis x1 -CT chest: Bilateral left greater than right basilar atelectatic changes and possibly some consolidation at the left lung base. Mild interstitial prominence could reflect mild interstitial congestive changes. Cardiomegaly. Prominent/ borderline enlarged mediastinal and bilateral axillary lymph nodes, appearing similar to prior exam of 09/08/2018, possibly baseline for this patient. Nonspecific thickening of the pleura of the bilateral major fissures, suspect chronic. HERO graft in place Minimal pericardial thickening versus fluid. Trace ascites. Bilateral renal atrophy, consistent with chronic renal disease. 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 Diffuse osteosclerosis, probably secondary to renal osteodystrophy HIV dx 1994- on ARV -03/2019: CD4 226 (28.1%), VL 30 -12/2017: VL 460; CD4 133 (2014) HLD Asthma HTN GERD CAD PVD -s/p L 3rd and 4th toe amputation chronic L 2nd toe OM s/p tx 12/2017 hx pericardial effusion ESRD on HD TTSat w/ thrombose R upper arm AV graft, on kidney transplant list Seizure disorder syncope s/p cholecystectomy s/p appendectomy s/p lumbar laminectomy, Plan: -Continue to monitor off systemic antibiotics -Continue ARV: Prezista, Norvir, Isentress -f/u cx -Monitor CBC/CMP, temperatures -Ortho f/u- plan to transfer to [facility] Thank you for this consultation. Will continue to follow along with you. Discussed with RN. Subjective Allergies: Coded Allergies: FLUTICASONE (Unverified Allergy, Unknown, 02/23/17) LEVOFLOXACIN (Unverified Allergy, Unknown, 08/22/14) MORPHINE (Unverified Allergy, Unknown, 02/23/17) Subjective afebrile no leukocytosis Objective Vital Signs Last 24 Hour Vital Signs Date Time Temp Pulse Resp B/P (MAP) Pulse Ox O2 Delivery O2 Flow Rate FiO2 05/02/19 14:01 98.1 05/02/19 12:06 98.1 85 20 112/68 (83) 95 05/02/19 10:08 98.1 05/02/19 09:00 Room Air 05/02/19 08:59 85 112/68 05/02/19 08:00 98.1 85 20 112/68 (83) 95 05/02/19 04:00 98.4 72 18 137/68 (91) 100 05/02/19 00:00 97.0 66 20 127/62 (83) 92 05/01/19 21:00 Room Air 05/01/19 20:18 73 115/68 05/01/19 20:00 98.2 60 20 122/70 (87) 92 05/01/19 16:00 98.3 60 18 122/69 (86) 96 Height (Feet): 6 Height (Inches): 3.00 Weight (Pounds): 182 Objective GENERAL: The patient is well-developed and well-nourished male, in no apparent distress. HEENT: Eyes, pupils are equal and responsive to light and accommodation. Extraocular movements are intact. NECK: Supple. No lymphadenopathy. CHEST: Lungs are clear to auscultation bilaterally without wheezes or rales. CARDIOVASCULAR: Regular rhythm and rate. S1 and S2 normal without murmurs, rubs, or gallops. ABDOMEN: Soft, nontender, and nondistended. Positive bowel sounds. No evidence of hepatosplenomegaly. Currently, no rebound or guarding noted. EXTREMITIES: Negative for clubbing, cyanosis, or edema. NEUROLOGIC: Cranial nerves II through XII are grossly intact without focal deficits. Motor strength is 5/5 bilaterally. Deep tendon reflexes are 2+ plantar Laboratory Tests Test 05/02/19 06:50 05/02/19 09:32 White Blood Count 3.6 K/UL (4.8-10.8) L Red Blood Count 4.59 M/UL (4.70-6.10) L Hemoglobin 11.2 G/DL (14.2-18.0) L Hematocrit 37.2 % (42.0-52.0) L Mean Corpuscular Volume 81 FL (80-99) Mean Corpuscular Hemoglobin 24.4 PG (27.0-31.0) L Mean Corpuscular Hemoglobin Concent 30.1 G/DL (32.0-36.0) L Red Cell Distribution Width 18.7 % (11.6-14.8) H Platelet Count 168 K/UL (150-450) # Mean Platelet Volume 7.5 FL (6.5-10.1) Neutrophils (%) (Auto) 56.8 % (45.0-75.0) Lymphocytes (%) (Auto) 21.1 % (20.0-45.0) Monocytes (%) (Auto) 16.5 % (1.0-10.0) H Eosinophils (%) (Auto) 4.9 % (0.0-3.0) H Basophils (%) (Auto) 0.8 % (0.0-2.0) Sodium Level 133 MMOL/L (136-145) L Potassium Level 4.4 MMOL/L (3.5-5.1) Chloride Level 95 MMOL/L (98-107) L Carbon Dioxide Level 30 MMOL/L (21-32) Anion Gap 8 mmol/L (5-15) Blood Urea Nitrogen 47 mg/dL (7-18) H Creatinine 9.8 MG/DL (0.55-1.30) H Estimat Glomerular Filtration Rate 6.8 mL/min (>60) Glucose Level 111 MG/DL (74-106) H Calcium Level 10.0 MG/DL (8.5-10.1) Phosphorus Level 6.8 MG/DL (2.5-4.9) H Magnesium Level 2.2 MG/DL (1.8-2.4) Total Bilirubin 0.5 MG/DL (0.2-1.0) Direct Bilirubin 0.1 MG/DL (0.0-0.3) Aspartate Amino Transf (AST/SGOT) 34 U/L (15-37) Alanine Aminotransferase (ALT/SGPT) 16 U/L (12-78) Alkaline Phosphatase 57 U/L (46-116) Total Protein 7.8 G/DL (6.4-8.2) Albumin 2.7 G/DL (3.4-5.0) L Current Medications Medications (Trade) Dose Ordered Sig/Anum Route PRN Reason Start Time Stop Time Status Last Admin Dose Admin Acetaminophen (Tylenol) 650 mg Q4H PRN ORAL Prn Headache/Temp > 101 04/29/19 11:50 05/24/19 11:49 Dextrose (Dextrose 50%) 25 ml Q30M PRN IV Hypoglycemia 04/29/19 11:45 05/23/19 23:14 Dextrose (Dextrose 50%) 50 ml Q30M PRN IV Hypoglycemia 04/29/19 11:45 05/23/19 23:14 Diphenhydramine HCl (Benadryl) 25 mg DAILYPRN PRN IVP Give with dialysis treatments 04/29/19 12:03 05/24/19 12:02 05/01/19 14:09 Docusate Sodium (Colace) 100 mg THREE TIMES A DAY ORAL 04/29/19 13:00 05/24/19 12:59 05/02/19 12:08 Gabapentin (Neurontin) 300 mg BID ORAL 04/29/19 18:00 05/24/19 17:59 05/02/19 08:58 Hydralazine HCl (Apresoline) 10 mg Q4H PRN IV bp over 160 syst 04/29/19 13:00 05/24/19 12:59 Hydromorphone HCl (Dilaudid) 3 mg Q3H PRN IVP Severe Pain (Pain Scale 7-10) 05/02/19 14:00 05/09/19 13:59 05/02/19 13:31 Lactulose (Cephulac) 20 gm THREE TIMES A DAY ORAL 04/29/19 13:00 05/25/19 17:59 05/02/19 12:08 Metoprolol Tartrate (Lopressor) 12.5 mg Q12HR ORAL 04/29/19 21:00 05/26/19 08:59 05/02/19 08:59 Ondansetron HCl (Zofran) 4 mg Q6H PRN IVP Nausea & Vomiting 04/29/19 12:03 05/23/19 12:02 05/02/19 01:27 Pantoprazole (Protonix) 40 mg EVERY 12 HOURS ORAL 04/29/19 21:00 05/24/19 20:59 05/02/19 08:59 Patient Own Medication (Patient's Own Med) 1 ea BID ORAL 04/29/19 18:00 05/26/19 17:59 05/02/19 09:00 Patient Own Medication (Patient's Own Med) 1 ea DAILY ORAL 04/30/19 09:00 05/26/19 16:59 05/02/19 08:59 Patient Own Medication (Patient's Own Med) 1 ea DAILY ORAL 04/30/19 09:00 05/26/19 16:59 05/02/19 09:00 Polyethylene Glycol (Miralax) 17 gm DAILYPRN PRN ORAL Constipation 04/29/19 23:15 05/23/19 23:14 Pravastatin Sodium (Pravachol) 40 mg QHS ORAL 04/29/19 21:00 05/24/19 20:59 05/01/19 20:14 Sevelamer Carbonate (Renvela) 2,400 mg THREE TIMES A DAY ORAL 04/29/19 13:00 05/24/19 12:59 05/02/19 12:08 Sari Duncan M.D. May 02, 2019 15:28
--- NOTE | 2019-05-02 17:56 | NUR ---
NURSE NOTES: Patient discharged to [facility] and report given to JEFRY Francis at [facility]. Patient left the floor accompanied by two ambulance personnel. IV access removed. Picture taken before discharge uploaded on patient's file. Per-cath for dialysis dressing on the Right thigh dry and intact. Patient was stable upon discharge.
--- NOTE | 2019-05-02 18:00 | NUR ---
NURSE NOTES: Before discharge patient signed the belonging lists. Patient's own medications given to patient upon discharge.
--- NOTE | 2019-05-03 12:22 | Discharge Summary ---
Discharge Summary Discharge Summary _ DATE OF ADMISSION: 04/24/2019 DATE OF DISCHARGE: 05/02/2019 DISCHARGED BY: Dr. Fabricio Guillory CONSULTANTS: Dr. Sari Rogers BRIEF HOSPITAL COURSE: Patient is a 53-year-old -[place] male, who presented with chief complaint of right hip pain. Patient stated he was at home, he was on his way out of the house. The patient turned to get his wallet. The patient stated his right knee suddenly became weak. The patient fell striking his right hip. He has medical history significant for HIV diagnosed in 1994, end-stage renal disease on hemodialysis every Tuesday, and Tuesday, atrial fibrillation, hypertension, coronary artery disease, and history of DVT in the left upper extremity in 2018. On evaluation at the ED, vital signs were stable. Blood work showed WBC 4.4, hemoglobin 11, hematocrit 35, platelet 108. Sodium was 135, potassium was elevated to 6.2. BUN 97 and creatinine 13.5. Calcium 10, phosphorus 12. He had a CT scan of the hip that showed evidence of a vascular necrosis of the right hip with subchondral fractures and moderate arthrosis. He was then admitted for evaluation of the fracture on the right femoral head. He was given immediate hemodialysis due to elevated potassium. He was placed on phosphate binders. He was given pain control. Orthopedic consultation was obtained. Orthopedic surgeon, patient would be a candidate for total hip arthroplasty once he is medically optimized. He had 6 beats of nonsustained ventricular tachycardia in the setting of hyperkalemia while in telemetry. EKG was in A. fib. Supervisor Plastering was consulted. Cardiac enzymes were monitored. He was given atenolol. He was placed on subcutaneous heparin for DVT prophylaxis. He was continued on antivirals. He was monitored off systemic antibiotics. Patient was cleared for surgery. However right total hip arthroplasty was postponed till the dialysis venous access was moved. He had episodes of slow A. fib. Metoprolol was decreased to 12.5 mg twice daily. MRI of the right hip was inconclusive to confirm fracture. Per orthopedic surgeon, hip replacement will be complicated case. Patient is under care care of surgeons at [facility]. He was placed on the transfer list. Had an episode of hemoptysis x 1. Chest CT showed bilateral left greater than right basilar atelectatic changes and possibly consolidation at the left lung base. Mild interstitial prominence. Cardiomegaly. Prominent/borderline enlarged mediastinal and bilateral axillary lymph nodes, appearing similar to prior exam, possibly baseline for this patient. He was eventually discharged back to [facility]. FINAL DIAGNOSES: Right hip pain due to right hip fracture secondary to avascular necrosis Nonsustained ventricular tachycardia versus atrial fibrillation with aberrancy Atrial fibrillation with bradycardia Troponin leak due to renal failure Hyperkalemia Renal osteodystrophy End-stage renal disease on hemodialysis Pancytopenia HIV Hyperlipidemia Asthma Hypertension GERD Coronary artery disease Peripheral vascular disease status post left third and fourth toe amputation Seizure disorder Anemia in CKD Hemoptysis DISPOSITION: Patient was discharged to [facility] DISCHARGE MEDICATIONS: Refer to Discharge Medication List. I have been assigned to complete a discharge summary on this account, I was not involved with the patient's management.--TOMAS Gregg Jacqueline Robles NP May 03, 2019 12:22
== END 2019-05-02 17:05 | DRG 542 ==
LOC: EDUNIT# 22:36 → EDBD 22:36 → EMR 23:00 → EDBEDREQ 04-24 00:30 → 4E 04-24 01:01 → EDBEDREQ 04-24 02:02 → 2E 04-24 04:00 → 4E 04-29 11:00
DX: M84.451A Pathological fracture, right femur, initial encounter for fracture (principal); N18.6 End stage renal disease; I12.0 Hypertensive chronic kidney disease with stage 5 chronic kidney disease or end stage renal disease; B20 Human immunodeficiency virus [HIV] disease; I47.2 Ventricular tachycardia; K86.1 Other chronic pancreatitis; M87.851 Other osteonecrosis, right femur; D61.818 Other pancytopenia; I25.10 Atherosclerotic heart disease of native coronary artery without angina pectoris; I48.91 Unspecified atrial fibrillation; Z86.718 Personal history of other venous thrombosis and embolism; Z79.82 Long term (current) use of aspirin; Z88.6 Allergy status to analgesic agent; Z88.1 Allergy status to other antibiotic agents; J45.909 Unspecified asthma, uncomplicated; D63.1 Anemia in chronic kidney disease; Z79.01 Long term (current) use of anticoagulants; E78.5 Hyperlipidemia, unspecified; K21.9 Gastro-esophageal reflux disease without esophagitis; I73.9 Peripheral vascular disease, unspecified; Z89.422 Acquired absence of other left toe(s); Z99.2 Dependence on renal dialysis; Z90.49 Acquired absence of other specified parts of digestive tract; G40.909 Epilepsy, unspecified, not intractable, without status epilepticus
CPT/HCPCS: 36415; 71045; 71260; 80048; 80053; 80061; 80069; 80076; 82140; 82550; 82607; 82728; 82746; 82962; 82977; 83036; 83540; 83550; 83690; 83735; 83880; 84100; 84443; 84484; 84550; 85007; 85025; 85060; 85610; 85730; 86140; 86360; 86706; 87536; 93005; 93306; 94664; 96372; 96374; 99285; J2405